=== PATIENT | male | born 1945 | race Caucasian/White ===

== ENCOUNTER 2020-04-12 09:40 | Outpatient (REF) | payer MEDICARE, BC, SELFPAY ==
[2020-04-12 13:00] LABS: MANUAL DIFF FLAG NO
[2020-04-12 13:07] LABS: Basophils Percent Auto 0.3 % (0-2); Eosinophils Absolute Auto 0.1 X10*3/uL (0.0-0.4); Eosinophils Percent Auto 0.7 % (0-4); Hematocrit 51.1 % (42-52); Hemoglobin 16.6 g/dl (14.0-18.0); Imm Gran Abs Auto 0.03 X10*3/uL (0.00-0.03); Imm Gran Pct Auto 0.3 % (0.0-0.4); Lymphocytes Absolute Auto 2.4 X10*3/uL (1.2-4.9); Lymphocytes Percent Auto 27.1 % (20-40); Mean Corpuscular HGB Conc 32.5 g/dl (31.0-36.0); Mean Corpuscular Hemoglobin 31.7 pg (27.0-33.0); Mean Corpuscular Volume 97.5 fL (80-98); Mean Platelet Volume 10.6 fL (9.4-12.4); Monocytes Absolute Auto 0.7 X10*3/uL (0.1-1.2); Monocytes Percent Auto 7.6 % (2-11); Neutrophils Absolute Auto 5.7 X10*3/uL (2.0-8.3); Platelet Count 231 X10*3/uL (160-400); Red Blood Count 5.24 X10*6/uL (4.60-5.80); Red Cell Distribution Width 12.6 % (11.0-16.0); White Blood Count 8.9 X10*3/uL (4.8-10.8)
[2020-04-12 13:22] LABS: Glucose Urine UA NEG (NEG); Leukocyte Esterase Urine NEG (NEG); Nitrite Urine NEG (NEG); PH 7.5 (5.0-8.0); Urine Blood NEG (NEG); Urine Ketones NEG (NEG); Urine Protein NEG (NEG-TRACE)
[2020-04-12 13:32] LABS: Color Urine YELLOW
[2020-04-12 13:33] LABS: Appearance Urine CLOUDY
[2020-04-12 13:46] LABS: Alanine Aminotransferase 18 U/L (0-40); Albumin Level 4.3 g/dL (3.5-5.0); Alkaline Phosphatase 67 U/L (39-117); Anion Gap 14 (12-20); Aspartate Amino Transferase 17 U/L (5-37); Bilirubin Total 0.6 mg/dL (0.0-1.0); Blood Urea Nitrogen 13 mg/dL (9-16); Calcium 8.7 mg/dL (8.4-10.2); Carbon Dioxide 25 mmol/L (22-29); Chloride 105 mmol/L (96-108); Cholesterol 164 mg/dL; Estimated Glomerular Filt Rate > 60; Glucose Fasting 109 mg/dL (60-99); HDL Cholesterol 37 mg/dL; LDL Cholesterol Calculated 95 mg/dl; Potassium 4.3 mmol/l (3.3-5.1); Sodium 140 mmol/L (135-145); Total Protein 6.9 g/dL (6.5-8.0); Triglycerides 164 mg/dL
[2020-04-12 13:56] LABS: TSH reflex Free T4 1.26 mIU/mL (0.32-4.0); Vitamin D 25-OH Total 43.3 ng/mL (>30)
[2020-04-12 13:59] LABS: Bacteria Urine 3+ /LPF; RBC Urine 0-2 /HPF (0); Urine Talc Crystals TRACE /LPF; WBC Urine 0 /HPF (0-4)
[2020-04-12 14:10] LABS: Folate 7.6 ng/mL (> or = 4.0); Vitamin B12 287 pg/mL (200-900)
[2020-04-12 14:21] LABS: Creatinine Urine 72.15 mg/dL; Microalbum/Creatinine Ratio Ur 45.7 ug/mg cr
== END 2020-04-12 09:41 | disposition home or self-care (01) ==
LOC: HO.LAB 09:40
PROVIDERS: Absent Provider Internal Medicine; PCP Internal Medicine; Referring Provider Internal Medicine; Visit Provider Internal Medicine
DX: E11.40 Type 2 diabetes mellitus with diabetic neuropathy, unspecified (principal); I10 Essential (primary) hypertension; E78.00 Pure hypercholesterolemia, unspecified; I25.10 Atherosclerotic heart disease of native coronary artery without angina pectoris; R26.81 Unsteadiness on feet; E55.9 Vitamin D deficiency, unspecified; E66.9 Obesity, unspecified
CPT/HCPCS: 36415; 80053; 80061; 81001; 82043; 82306; 82607; 82746; 84443; 85025; 99212

== ENCOUNTER 2020-12-22 10:06 | Outpatient (REF) | payer MEDICARE, BC, SELFPAY ==
[2020-12-22 10:49] LABS: MANUAL DIFF FLAG NO
[2020-12-22 11:00] LABS: Basophils Percent Auto 0.2 % (0-2); Eosinophils Absolute Auto 0.1 X10*3/uL (0.0-0.4); Hematocrit 51.1 % (42-52); Hemoglobin 16.4 g/dl (14.0-18.0); Imm Gran Abs Auto 0.02 X10*3/uL (0.00-0.03); Imm Gran Pct Auto 0.2 % (0.0-0.4); Lymphocytes Absolute Auto 2.5 X10*3/uL (1.2-4.9); Lymphocytes Percent Auto 31.2 % (20-40); Mean Corpuscular HGB Conc 32.1 g/dl (31.0-36.0); Mean Corpuscular Hemoglobin 31.5 pg (27.0-33.0); Mean Corpuscular Volume 98.3 fL (80-98); Mean Platelet Volume 10.5 fL (9.4-12.4); Monocytes Absolute Auto 0.8 X10*3/uL (0.1-1.2); Monocytes Percent Auto 9.5 % (2-11); Neutrophils Absolute Auto 4.7 X10*3/uL (2.0-8.3); Neutrophils Percent Auto 57.9 % (45-73); Platelet Count 243 X10*3/uL (160-400); Red Cell Distribution Width 12.3 % (11.0-16.0); White Blood Count 8.1 X10*3/uL (4.8-10.8)
[2020-12-22 11:42] LABS: Alanine Aminotransferase 16 U/L (0-40); Albumin Level 4.2 g/dL (3.5-5.0); Alkaline Phosphatase 83 U/L (39-117); Anion Gap 13 (12-20); Aspartate Amino Transferase 14 U/L (5-37); Bilirubin Total 0.6 mg/dL (0.0-1.0); Blood Urea Nitrogen 12 mg/dL (9-16); Calcium 9.9 mg/dL (8.4-10.2); Carbon Dioxide 27 mmol/L (22-29); Chloride 105 mmol/L (96-108); Cholesterol 188 mg/dL; Estimated Glomerular Filt Rate > 60; Glucose Fasting 164 mg/dL (60-99); HDL Cholesterol 39 mg/dL; LDL Cholesterol Calculated 110 mg/dl; Potassium 4.7 mmol/L (3.3-5.1); Sodium 140 mmol/L (135-145); Total Protein 6.9 g/dL (6.5-8.0); Triglycerides 197 mg/dL
[2020-12-22 11:46] LABS: TSH reflex Free T4 2.18 uIU/mL (0.32-4.0); Vitamin D 25-OH Total 43.1 ng/mL (>30)
[2020-12-22 11:52] LABS: Glucose Urine UA 100 MG/DL (NEG); Leukocyte Esterase Urine NEG (NEG); Nitrite Urine NEG (NEG); Specific Gravity - Urine 1.025 (1.005-1.025); Urine Blood NEG (NEG); Urine Ketones NEG (NEG); Urine Protein NEG (NEG-TRACE)
[2020-12-22 11:59] LABS: Creatinine Urine 123.42 mg/dL; Microalbum/Creatinine Ratio Ur 69.6 ug/mg cr
[2020-12-22 11:59] LABS: Folate 8.8 ng/mL (> or = 4.0); Vitamin B12 208 pg/mL (200-900)
[2020-12-22 12:02] LABS: Appearance Urine CLEAR; Color Urine YELLOW
== END 2020-12-22 10:07 | disposition home or self-care (01) ==
LOC: HO.LAB 10:06
PROVIDERS: PCP Internal Medicine; Visit Provider Internal Medicine
DX: I25.10 Atherosclerotic heart disease of native coronary artery without angina pectoris (principal); I10 Essential (primary) hypertension; E11.40 Type 2 diabetes mellitus with diabetic neuropathy, unspecified; E78.00 Pure hypercholesterolemia, unspecified; E66.9 Obesity, unspecified; E55.9 Vitamin D deficiency, unspecified
CPT/HCPCS: 36415; 80053; 80061; 81003; 82043; 82306; 82607; 82746; 84443; 85025

== ENCOUNTER 2021-08-19 12:01 | Inpatient (IN) | payer MEDICARE, BC, SELFPAY ==
--- NOTE | ~2021-08-19 | US_ITS ---
EXAMINATION: SOB SWELLING AND PAIN LEFT LEG. CLINICAL INFORMATION: SOB. COMPARISON: None TECHNIQUE: Chest 2 views. Routine grayscale, color and Doppler imaging of left leg was performed. FINDINGS: CHEST. The lungs are well-expanded and clear of acute pneumonic process. The heart size and perivascular is normal. There is mild spondylosis lower dorsal spine. No lytic process. ULTRASOUND LEFT LOWER LEG: There is normal compression, color flow and Doppler imaging of left common femoral, superficial femoral, popliteal, anterior, posterior tibial and greater saphenous vein. The profunda vein and the peroneal veins are patent as well. The soft tissues are normal. US/US venous duplex LE LT IMPRESSION: Unremarkable left lower extremity venous study. There is no evidence of DVT.
[2021-08-19 12:12] VITALS: BP 137/51; BP 148/88; PULSE 100; PULSE 108; RESP 20; TEMP 36.9; O2SAT 94; O2SAT 95; BMI 31.6
--- NOTE | 2021-08-19 12:21 | ECG_ITS ---
Test Reason : Skin abscess Blood Pressure : / mmHG Vent. Rate : 081 BPM Atrial Rate : 081 BPM P-R Int : 162 ms QRS Dur : 070 ms QT Int : 350 ms P-R-T Axes : 069 032 049 degrees QTc Int : 406 ms Normal sinus rhythm Nonspecific ST abnormality Abnormal ECG When compared with ECG of 27-JUL-2017 03:52, Premature ventricular complexes are no longer Present QT has shortened Referred By: Maricarmen Estevez Electronically Signed By:AUGUST HUBER MD
--- NOTE | 2021-08-19 12:23 | ED.SKABFB ---
HPI - Skin/Abscess/Foreign Bdy General Chief complaint: Skin/Abscess/Foreign Body Stated complaint: MACIEJ PEDAL EDEMA/L FOOT WOUND PAIN PER EMS Time Seen by Provider: 08/19/21 12:08 Source: patient and EMS Mode of arrival: EMS Limitations: no limitations History of Present Illness HPI narrative: 76-year-old male with a history of pza-leeybno-[id number] diabetes, COPD, sleep apnea, hypertension, hyperlipidemia here with reports of left lower leg swelling, redness and pain for the last week. Patient tells me he initially noticed that there was a blister on the left leg. During the week of the blister ruptured and since then he has had increasing pain, redness and swelling of the leg. He denies any fevers or chills. He does have COPD and has chronic shortness of breath but feels like today it is at his baseline. He denies any increased cough, chest pain. Related Data Home Medications Medication Instructions Recorded Confirmed budesonide 180 mcg/actuation 1 inh INHALATION BID 04/26/20 08/19/21 breath activated powder inhaler fluticasone propionate 220 1 puff INHALATION BID 04/26/20 08/19/21 mcg/actuation HFA aerosol inhaler (Flovent HFA) Previous Rx's Medication Instructions Recorded aspirin 81 mg tablet,delayed 81 mg PO DAILY #30 tab 04/12/20 release albuterol sulfate 90 mcg/actuation 2 puff INHALATION Q6H PRN #8.5 g 07/27/20 aerosol inhaler cholecalciferol (vitamin D3) 50 50 mcg PO DAILY 90 Days #90 cap 03/15/21 mcg (2,000 unit) capsule ipratropium 0.5 mg-albuterol 3 mg 3 ml INHALATION Q6H PRN 30 Days 03/15/21 (2.5 mg base)/3 mL nebulization #360 ml soln pravastatin 40 mg tablet 40 mg PO DAILY #90 tab 03/15/21 glipizide 10 mg tablet 10 mg PO BID 90 Days #180 tab 07/17/21 lisinopril 20 mg tablet 20 mg PO DAILY 90 Days #90 tab 07/17/21 metformin 500 mg tablet 500 mg PO BID 90 Days #180 tab 07/17/21 Allergies Allergy/AdvReac Type Severity Reaction Status Date / Time Fish Containing Products Allergy Severe ANAPHYLAXIS Verified 07/17/21 10:48 shellfish derived Allergy Severe ANAPHYLAXIS Verified 07/17/21 10:48 Review of Systems Review of Systems: Yes all other systems are reviewed and are negative Constitutional: Constitutional: Reports no additional constitutional complaints, Denies body ache(s), Denies chills, Denies fever(s), Denies headache(s) and Denies weakness Eyes: Eyes: Reports no additional eye complaints and Denies change in vision ENT: Reports system reviewed and no additional complaints, except as documented, Denies dizziness, Denies headache(s), Denies nasal congestion, Denies nasal discharge and Denies neck pain Cardiovascular: Cardiovascular: Reports no additional cardiovascular complaints, Denies chest pain, Reports leg edema and Denies dyspnea Respiratory: Respiratory: Reports no additional respiratory complaints, Denies cough and Denies dyspnea Gastrointestinal: Gastrointestinal: Reports no additional gastrointestinal complaints, Denies abdominal pain, Denies diarrhea, Denies nausea and Denies vomiting Genitourinary: Genitourinary: Denies urinary incontinence Musculoskeletal: Musculoskeletal: Reports no additional musculoskeletal complaints, Denies back pain, Denies arthralgias, Denies joint swelling, Denies neck pain, Denies numbness and Denies tingling Integumentary/Breasts: Skin/Breast: Reports system reviewed and no additional complaints, except as docu and Reports rash Neurologic: Reports system reviewed and no additional complaints, except as documented, Denies Abnormal speech present, Denies dizziness, Denies headache(s), Denies numbness, Denies tingling and Denies weakness PMFSH Past Medical History Attestation statement: The following information was validated with the patient. Source: old records reviewed and nursing notes reviewed Medical History Benign essential hypertension CAD (coronary artery disease) COPD (chronic obstructive pulmonary disease) COPD (chronic obstructive pulmonary disease) Coronary artery disease Depression DM2 (diabetes mellitus, type 2) Erectile disorder due to medical condition in male HLD (hyperlipidemia) HTN (hypertension) Neuropathy Obesity (BMI 30-39.9) Obesity (BMI 30.0-34.9) FADY (obstructive sleep apnea) Primary osteoarthritis of both knees Psoriasis Pulmonary hypertension Pure hypercholesterolemia Type 2 diabetes mellitus with diabetic neuropathy, unspecified Vitamin D deficiency Surgical History No pertinent past surgical history Family History Family History Father Medical history unknown Mother Cancer Social History Social History Housing: Apartment Alcohol intake: current Alcohol intake frequency: does not drink Patient Tobacco Use Status: Current someday Tobacco user Cigarettes Per Day: 3 Years Smoked: 59 years Smoked in Last 30 Days: Yes Second Hand Smoke Exposure: Yes Use of substances other than those prescribed or required for medical reasons: No Advance Directives: No Advance Directives Information Provided: No service: Yes Current occupational status: retired Physical Exam Vital Signs: Vital Signs: Last Vital Signs Temp 98.4 F 08/19/21 12:12 Pulse 100 08/19/21 12:12 Resp 20 08/19/21 12:12 BP 137/51 L 08/19/21 12:12 Pulse Ox 95 08/19/21 12:12 BMI result Body Mass Index 31.6 Const: General: cooperative, healthy appearing, comfortable and no acute distress Orientation/consciousness: patient oriented x3 Limitations: no limitations HENMT: Head: Yes normal to inspection Ears: hearing grossly normal bilaterally General nose exam: Normal external nose present Face and sinus: Yes normal facial exam Mouth: Normal oral and palatal mucosa present Throat: Yes posterior oropharynx normal Eyes: General: appearance normal, both eyes and all related structures Pupils: Equal, round and reactive pupils present Neck: Neck: Yes normal visual inspection Chest: Chest palpation & inspection: normal inspection of the chest Resp: Effort & Inspection: normal respiratory effort Auscultation: clear to auscultation bilaterally Cardio: Rate: regular rate Rhythm: regular rhythm Peripheral pulses: Peripheral pulses 2+ throughout GI: Inspection: Yes normal to inspection Palpation (GI): Soft to palpation and nontender Auscultation: normal bowel sounds Back/Spine/Pelvis: Thoracic/Lumbar Spine: thoracic and lumbar spine normal to inspection Skin: General skin exam: no rashes or lesions noted Neuro: General: patient oriented x3, no focal motor deficits and normal sensation to monofilament Cranial nerves: Yes Equal, round and reactive pupils present Cognition (Neuro): normal cognition Speech: No Abnormal speech present Gait exam (Neuro): Normal gait present Motor exam (neuro): 5/5 motor strength present throughout Extrem: Other: The RLE has slight swelling, pigmentation of the skin c/w with PVD with no tenderness or warmth The LLE has circumferential swelling, redness, tenderness with +foul odor and draining wound over the anterior distal leg. +distal pulses. Sensation normal. Course Course Course Narrative: 76 yo male here with 1 week of LLE swelling, redness, warmth with open wound. on exam he does have some slight swelling noted to the right lower leg that is nonpitting. Has no history of congestive heart failure. He has no increased shortness of breath from baseline, no increased cough from baseline, no fevers, no chest pain. He has no history of DVTs or PEs. He is not anticoagulated. Will check labs including blood cultures and lactic acid, EKG, CXR, Covid screen, venous US LLE. At this time infection is suspected. Antibiotics ordered. 1340- Ultrasound is negative for DVT. Workup for CHF including BNP and chest x-ray are negative. Plan for admission for IV antibiotics for cellulitis. Discussed case with Dr. Ballard who accepted patient. MDM - Skin/Abscess/Foreign Bdy Medical Records Attestation: I reviewed the patient's medical records. Lab Data Attestation: I reviewed the patient's lab results. Result diagrams: 08/19/21 12:25 08/19/21 12:25 Labs: Lab Results 08/19/21 08/19/21 08/19/21 Range/Units 12:25 12:25 12:25 WBC 11.9 H (4.8-10.8) X10*3/uL RBC 5.17 (4.60-5.80) X10*6/uL Hgb 16.5 (14.0-18.0) g/dl Hct 50.1 (42.0-52.0) % MCV 96.9 (80.0-98.0) fL MCH 31.9 (27.0-33.0) pg MCHC 32.9 (31.0-36.0) g/dl RDW 12.3 (11.0-16.0) % Plt Count 312 (160-400) X10*3/uL MPV 9.7 (9.4-12.4) fL Immature Gran % (Auto) 0.7 H (0.0-0.4) % Neut % (Auto) 73.3 H (45-73) % Lymph % (Auto) 17.1 L (20-40) % [place] % (Auto) 8.3 (2-11) % Eos % (Auto) 0.3 (0-4) % Baso % (Auto) 0.3 (0-2) % Lymph # (Auto) 2.0 (1.2-4.9) X10*3/uL [place] # (Auto) 1.0 (0.1-1.2) X10*3/uL Eos # (Auto) 0.0 (0.0-0.4) X10*3/uL Baso # (Auto) 0.0 (0.0-0.2) X10*3/uL Abs Immat Gran (auto) 0.08 H (0.00-0.03) X10*3/uL Absolute Neuts (auto) 8.7 H (2.0-8.3) x10*3/uL Absolute Nucleated RBC 0.000 (0.0-0.012) X10*3/uL Nucleated RBC % (auto) 0.0 (0.0-0.2) /100WBC Sodium 136 (135-145) mmol/L Potassium 4.9 (3.3-5.1) mmol/L Chloride 99 (96-108) mmol/L Carbon Dioxide 27 (22-29) mmol/L Anion Gap 15 (12-20) BUN 14 (9-16) mg/dL Creatinine 0.95 (0.5-1.4) mg/dL Estim Creat Clear Calc 91.4 Estimated GFR > 60 Random Glucose 119 H (60-115) mg/dL Lactic Acid 2.2 H* (0.5-2.0) mmol/L Calcium 9.7 (8.4-10.2) mg/dL Magnesium 1.9 (1.6-2.6) mg/dL Total Bilirubin 0.7 (0.0-1.0) mg/dL Direct Bilirubin 0.4 (0.0-0.5) mg/dL AST 14 (5-37) U/L ALT 16 (0-40) U/L Alkaline Phosphatase 94 (39-117) U/L Troponin I High Sens (<3.5-35.0) ng/L B-Natriuretic Peptide (<100) pg/mL Total Protein 7.0 (6.5-8.0) g/dL Albumin 4.0 (3.5-5.0) g/dL COVID-19 ([facility]) (Negative) COVID-19 Clin Com 08/19/21 08/19/21 Range/Units 12:25 12:32 WBC (4.8-10.8) X10*3/uL RBC (4.60-5.80) X10*6/uL Hgb (14.0-18.0) g/dl Hct (42.0-52.0) % MCV (80.0-98.0) fL MCH (27.0-33.0) pg MCHC (31.0-36.0) g/dl RDW (11.0-16.0) % Plt Count (160-400) X10*3/uL MPV (9.4-12.4) fL Immature Gran % (Auto) (0.0-0.4) % Neut % (Auto) (45-73) % Lymph % (Auto) (20-40) % [place] % (Auto) (2-11) % Eos % (Auto) (0-4) % Baso % (Auto) (0-2) % Lymph # (Auto) (1.2-4.9) X10*3/uL [place] # (Auto) (0.1-1.2) X10*3/uL Eos # (Auto) (0.0-0.4) X10*3/uL Baso # (Auto) (0.0-0.2) X10*3/uL Abs Immat Gran (auto) (0.00-0.03) X10*3/uL Absolute Neuts (auto) (2.0-8.3) x10*3/uL Absolute Nucleated RBC (0.0-0.012) X10*3/uL Nucleated RBC % (auto) (0.0-0.2) /100WBC Sodium (135-145) mmol/L Potassium (3.3-5.1) mmol/L Chloride (96-108) mmol/L Carbon Dioxide (22-29) mmol/L Anion Gap (12-20) BUN (9-16) mg/dL Creatinine (0.5-1.4) mg/dL Estim Creat Clear Calc Estimated GFR Random Glucose (60-115) mg/dL Lactic Acid (0.5-2.0) mmol/L Calcium (8.4-10.2) mg/dL Magnesium (1.6-2.6) mg/dL Total Bilirubin (0.0-1.0) mg/dL Direct Bilirubin (0.0-0.5) mg/dL AST (5-37) U/L ALT (0-40) U/L Alkaline Phosphatase (39-117) U/L Troponin I High Sens 9.1 (<3.5-35.0) ng/L B-Natriuretic Peptide 77 (<100) pg/mL Total Protein (6.5-8.0) g/dL Albumin (3.5-5.0) g/dL COVID-19 ([facility]) Negative (Negative) COVID-19 Clin Com See Note Imaging Data Venous US: Attestation: I personally reviewed and interpreted this imaging study as follows: Radiologist's impression: FINDINGS: CHEST. The lungs are well-expanded and clear of acute pneumonic process. The heart size and perivascular is normal. There is mild spondylosis lower dorsal spine. No lytic process. ULTRASOUND LEFT LOWER LEG: There is normal compression, color flow and Doppler imaging of left common femoral, superficial femoral, popliteal, anterior, posterior tibial and greater saphenous vein. The profunda vein and the peroneal veins are patent as well. The soft tissues are normal. US/US venous duplex LE LT IMPRESSION: Unremarkable left lower extremity venous study. There is no evidence of DVT.? Chest x-ray: Attestation: I personally reviewed and interpreted this imaging study as follows: Radiologist's impression: FINDINGS: CHEST. The lungs are well-expanded and clear of acute pneumonic process. The heart size and perivascular is normal. There is mild spondylosis lower dorsal spine. No lytic process. ECG Data Attestation: I personally reviewed and interpreted this ECG as follows: ECG interpretation date: 08/19/21 ECG interpretation time: 13:03 Interpretation: Normal sinus rhythm with a rate 81, normal RI, normal QRS, normal QT Discharge Plan Discharge Clinical Impression: Cellulitis Patient Disposition: Admitted As Inpatient
[2021-08-19 12:29] LABS: MANUAL DIFF FLAG NO
[2021-08-19 12:35] LABS: Basophils Percent Auto 0.3 % (0-2); Eosinophils Percent Auto 0.3 % (0-4); Hematocrit 50.1 % (42.0-52.0); Hemoglobin 16.5 g/dl (14.0-18.0); Imm Gran Abs Auto 0.08 X10*3/uL (0.00-0.03); Imm Gran Pct Auto 0.7 % (0.0-0.4); Lymphocytes Percent Auto 17.1 % (20-40); Mean Corpuscular HGB Conc 32.9 g/dl (31.0-36.0); Mean Corpuscular Hemoglobin 31.9 pg (27.0-33.0); Mean Corpuscular Volume 96.9 fL (80.0-98.0); Mean Platelet Volume 9.7 fL (9.4-12.4); Monocytes Percent Auto 8.3 % (2-11); Neutrophils Absolute Auto 8.7 x10*3/uL (2.0-8.3); Neutrophils Percent Auto 73.3 % (45-73); Platelet Count 312 X10*3/uL (160-400); Red Blood Count 5.17 X10*6/uL (4.60-5.80); Red Cell Distribution Width 12.3 % (11.0-16.0); White Blood Count 11.9 X10*3/uL (4.8-10.8)
[2021-08-19] MEDS: Piperacillin Sodium/Tazobactam 3.375 GM in 0.9 % Sodium Chloride 50 ML IV ×2 (12:39→20:56)
[2021-08-19 12:54] LABS: COVID-19 Test Negative (Negative); IDNOW Serial# 16C4AD1C
[2021-08-19 12:54] LABS: Alanine Aminotransferase 16 U/L (0-40); Alkaline Phosphatase 94 U/L (39-117); Anion Gap 15 (12-20); Aspartate Amino Transferase 14 U/L (5-37); Bilirubin Direct 0.4 mg/dL (0.0-0.5); Bilirubin Total 0.7 mg/dL (0.0-1.0); Blood Urea Nitrogen 14 mg/dL (9-16); Calcium 9.7 mg/dL (8.4-10.2); Carbon Dioxide 27 mmol/L (22-29); Chloride 99 mmol/L (96-108); Creatinine Clr Calc Pharmacy 91.4; Estimated Glomerular Filt Rate > 60; Glucose Random 119 mg/dL (60-115); Magnesium 1.9 mg/dL (1.6-2.6); Potassium 4.9 mmol/L (3.3-5.1); Sodium 136 mmol/L (135-145)
[2021-08-19 13:01] LABS: B Type Natriuretic Peptide 77 pg/mL (<100); Troponin-I High Sensitivity 9.1 ng/L (<3.5-35.0)
[2021-08-19 13:18] LABS: Lactic Acid 2.2 mmol/L (0.5-2.0)
--- NOTE | 2021-08-19 13:46 | PHA.MEDREC ---
Pharmacy Consult ? Medication Reconciliation Pharmacy has completed the medication reconciliation.
[2021-08-19 14:27] LABS: Reflex Lactate? Lactic Acid Added
--- NOTE | 2021-08-19 14:35 | PM.IMHP ---
History of Present Illness Date of Service: 08/19/21 Chief Complaint: leg pain 76-year-old male with a history of tex-bjkebkz-[id number] diabetes, COPD, sleep apnea, hypertension, hyperlipidemia here with reports of left lower leg swelling, redness and pain for the last week.? Patient tells me he initially noticed that there was a blister on the left leg.? During the week of the blister ruptured and since then he has had increasing pain, redness and swelling of the leg.? He denies any fevers or chills.? He does have COPD and has chronic shortness of breath but feels like today it is at his baseline.? He denies any increased cough, chest pain. Venous duplex left lower extremity negative Review of Systems Review of Systems: Denies chest pain Denies shortness of breath Denies nausea vomiting diarrhea PMFSH Medical History Benign essential hypertension CAD (coronary artery disease) COPD (chronic obstructive pulmonary disease) COPD (chronic obstructive pulmonary disease) Coronary artery disease Depression DM2 (diabetes mellitus, type 2) Erectile disorder due to medical condition in male HLD (hyperlipidemia) HTN (hypertension) Neuropathy Obesity (BMI 30-39.9) Obesity (BMI 30.0-34.9) FADY (obstructive sleep apnea) Primary osteoarthritis of both knees Psoriasis Pulmonary hypertension Pure hypercholesterolemia Type 2 diabetes mellitus with diabetic neuropathy, unspecified Vitamin D deficiency Family History Father Medical history unknown Mother Cancer Surgical History No pertinent past surgical history Social History Housing: Apartment Alcohol intake: current Alcohol intake frequency: does not drink Patient Tobacco Use Status: Current someday Tobacco user Cigarettes Per Day: 3 Years Smoked: 59 years Smoked in Last 30 Days: Yes Second Hand Smoke Exposure: Yes Use of substances other than those prescribed or required for medical reasons: No Advance Directives: No Advance Directives Information Provided: No service: Yes Current occupational status: retired Meds Allergies Allergy/AdvReac Type Severity Reaction Status Date / Time Fish Containing Products Allergy Severe ANAPHYLAXIS Verified 07/17/21 10:48 shellfish derived Allergy Severe ANAPHYLAXIS Verified 07/17/21 10:48 Active Medications: Current Medications Albuterol Sulfate (Albuterol Sulfate 90 Mcg 8 Gm Inhaler) 2 puff INHALE RQ6H PRN PRN Reason: for wheezing Albuterol/Ipratropium (Albuterol/Iprat 2.5/0.5mg 3 Ml Ampul.Neb) 3 ml INHALE RQ6H PRN PRN Reason: wheezing Aspirin (Aspirin Enteric Coated 81 Mg Tablet.Dr) 81 mg PO DAILY [facility] Budesonide (Budesonide 180 Mcg Aer.Pow.Ba) 1 puff INHALE BID [facility] Dextrose (Dextrose 50 % 25 Gm/50 Ml Vial) 25 gm IVPUSH Q15M PRN; Protocol PRN Reason: per Hypoglycemia Standing Ord. Enoxaparin Sodium (Enoxaparin Sodium 40 Mg/0.4 Ml Syringe) 40 mg SUBCUT Q24H [facility] Fluticasone Propionate (Fluticasone Propionate 250 Mcg Blst.W.Dev) 1 puff INHALE RBID [facility] Furosemide (Furosemide 20 Mg/2 Ml Vial) 20 mg IVPUSH BID@0830,1630 [facility]; Protocol Glipizide (Glipizide 10 Mg Tablet) 10 mg PO BID [facility] Glucose (Glucose Gel 15 Gm Gel..Gram.) 15 gm PO Q15M PRN; Protocol PRN Reason: per Hypoglycemia Standing Ord. Vancomycin HCl 1,000 mg/Vancomycin HCl 750 mg/ Sodium Chloride 535 mls @ 267.5 mls/hr IV ONCE ONE Stop: 08/19/21 15:36 Piperacillin Sod/Tazobactam (Sod 3.375 gm/ Sodium Chloride) 50 mls @ 100 mls/hr IV Q6H [facility] Insulin Human Lispro (Insulin Lispro 100 Unit/Ml 3 Ml Vial) 0 unit SUBCUT QIDACHS [facility]; Protocol Lisinopril (Lisinopril 20 Mg Tablet) 20 mg PO DAILY [facility]; Protocol Metformin HCl (Metformin Hcl 500 Mg Tablet) 500 mg PO BID [facility] Pharmacy Consult (Consult Rx Perform Med Rec) 1 each MISCELLANE ONCE PRN PRN Reason: Consult order Pharmacy Consult (Consult Rx Vancomycin Dosing) 1 each MISCELLANE DAILY PRN PRN Reason: Consult order Pharmacy Consult (Consult Rx Vancomycin Dosing) 1 each MISCELLANE DAILY PRN PRN Reason: Consult order Pravastatin Sodium (Pravastatin Sodium 40 Mg Tablet) 40 mg PO DAILY [facility] Sodium Chloride (0.9 % Sodium Chloride Flush 3 Ml Syringe) 3 ml IVFLUSH QSHIFT [facility] Vitamin D (Cholecalciferol (Vitamin D3) 25 Mcg Tablet) 50 mcg PO DAILY [facility] Home Medications Medication Instructions Recorded Confirmed Last Taken Type budesonide 180 mcg/actuation 1 inh INHALATION BID 04/26/20 08/19/21 Unknown History breath activated powder inhaler fluticasone propionate 220 1 puff INHALATION BID 04/26/20 08/19/21 Unknown History mcg/actuation HFA aerosol inhaler (Flovent HFA) Physical Exam Vital Signs and Narrative: Vital Signs: Last Vital Signs Temp 98.4 F 08/19/21 12:12 Pulse 100 08/19/21 12:12 Resp 20 08/19/21 12:12 BP 137/51 L 08/19/21 12:12 Pulse Ox 95 08/19/21 12:12 BMI result Body Mass Index 31.6 Const: Other: Awake alert oriented x3 no acute distress Resp: Other: Clear to auscultation bilaterally no rales rhonchi or wheezes Cardio: Other: No S4; positive S1-S2; no S3 murmurs rubs or gallops GI: Other: Soft nontender nondistended with normoactive bowel sounds Extrem: Other: Weeping edema bilaterally Results Labs CBC and Chem 7: 08/19/21 12:25 08/19/21 12:25 Labs: Laboratory Results - last 24 hr 08/19/21 08/19/21 08/19/21 12:25 12:25 12:25 MCV 96.9 MCH 31.9 MCHC 32.9 RDW 12.3 Plt Count 312 MPV 9.7 Immature Gran % (Auto) 0.7 H Neut % (Auto) 73.3 H Lymph % (Auto) 17.1 L [place] % (Auto) 8.3 Eos % (Auto) 0.3 Baso % (Auto) 0.3 Lymph # (Auto) 2.0 [place] # (Auto) 1.0 Eos # (Auto) 0.0 Baso # (Auto) 0.0 Abs Immat Gran (auto) 0.08 H Absolute Neuts (auto) 8.7 H Absolute Nucleated RBC 0.000 Nucleated RBC % (auto) 0.0 Anion Gap 15 Estim Creat Clear Calc 91.4 Estimated GFR > 60 Random Glucose 119 H Lactic Acid 2.2 H* Calcium 9.7 Magnesium 1.9 Total Bilirubin 0.7 Direct Bilirubin 0.4 AST 14 ALT 16 Alkaline Phosphatase 94 B-Natriuretic Peptide Total Protein 7.0 Albumin 4.0 COVID-19 ([facility]) COVID-19 Clin Com 08/19/21 08/19/21 12:25 12:32 MCV MCH MCHC RDW Plt Count MPV Immature Gran % (Auto) Neut % (Auto) Lymph % (Auto) [place] % (Auto) Eos % (Auto) Baso % (Auto) Lymph # (Auto) [place] # (Auto) Eos # (Auto) Baso # (Auto) Abs Immat Gran (auto) Absolute Neuts (auto) Absolute Nucleated RBC Nucleated RBC % (auto) Anion Gap Estim Creat Clear Calc Estimated GFR Random Glucose Lactic Acid Calcium Magnesium Total Bilirubin Direct Bilirubin AST ALT Alkaline Phosphatase B-Natriuretic Peptide 77 Total Protein Albumin COVID-19 ([facility]) Negative COVID-19 Clin Com See Note Imaging Radiologist's Impressions: Impressions Chest X-Ray 08/19/21 12:47 IMPRESSION: Unremarkable left lower extremity venous study. There is no evidence of DVT. Venous Duplex 08/19/21 13:09 IMPRESSION: Unremarkable left lower extremity venous study. There is no evidence of DVT. Assessment and Plan (1) Cellulitis: Status: Acute (2) Coronary artery disease: Qualifiers: Coronary Disease-Associated Artery/Lesion type: [place] artery [place] vs. transplanted heart: [place] heart Associated angina: without angina Qualified Code(s): I25.10 - Atherosclerotic heart disease of [place] coronary artery without angina pectoris Status: Acute (3) Benign essential hypertension: Status: Acute (4) Type 2 diabetes mellitus with diabetic neuropathy, unspecified: Qualifiers: Diabetes mellitus buttermaker continuous churn insulin use: without buttermaker continuous churn use Qualified Code(s): E11.40 - Type 2 diabetes mellitus with diabetic neuropathy, unspecified Status: Acute (5) COPD (chronic obstructive pulmonary disease): Qualifiers: COPD type: unspecified COPD Qualified Code(s): J44.9 - Chronic obstructive pulmonary disease, unspecified Status: Acute Plan 76-year-old male with a history of coronary artery disease, hypertension and type 2 diabetes not requiring insulin presents with approximately 1 week of left lower extremity redness and swelling. He states this started as a blister began to weep and then his legs became more read as days went by along with being more painful. He states denies fever and chills. States he ?furniture walks at home?. Minimal ambulation electric wheelchair. At this time he will be admitted for IV antibiotics 1. LLE Cellulitis -IV Vanco/Zosyn -IV lasix x 24hrs. -follow renals/divalents 2. DMII -continue outpatient therapies -Sliding scale insulin to cover adjust as indicted 3.HTN -acceptable control on outpatient therapies -continue same...adjust as indicated 4.Hyperlipidemia -continue statin Full Code Lovenox Requires inpatient hospitalization secondary to need for IV antibiotics and IV diuresis Quality Stroke Does the patient have a stroke diagnosis?: No VTE Prior VTE?: No VTE Risk Level:: Medical - moderate - high VTE Device Contraindication: Patient Refused VTE Drug Contraindication: N/A - Med Ordered
[2021-08-19 14:43] VITALS: BP 123/38; PULSE 77; RESP 16; O2SAT 98
[2021-08-19] MEDS: 0.9 % Sodium Chloride Flush 3 ML SYRINGE IVFLUSH (14:59)
[2021-08-19] MEDS: vancomycin HCL 1,000 MG, vancomycin HCL 750 MG in 0.9 % Sodium Chloride 500 ML 267.5 MG IV (14:59)
[2021-08-19] MEDS: Enoxaparin Sodium 40 MG/0.4 ML SYRINGE SUBCUT (14:59)
[2021-08-19 15:10] LABS: ~Lactic Acid-LAB USE ONLY 2.3 mmol/L (0.5-2.0)
[2021-08-19 15:25] VITALS: BP 105/80; PULSE 76; RESP 16; TEMP 36.6; O2SAT 97
[2021-08-19 16:50] LABS: Reflex Lactate? 2 Y
[2021-08-19 17:29] LABS: Glucose, Whole Blood 137 mg/dL (60-115)
--- NOTE | 2021-08-19 17:32 | PC.NURSE ---
patient refusing repeat lctic acid draw at this time
[2021-08-19 17:57] VITALS: BP 112/43; PULSE 70; RESP 18; TEMP 37; O2SAT 98
[2021-08-19] MEDS: Furosemide 20 MG/2 ML VIAL IVPUSH (17:58)
[2021-08-19 17:59] LABS: ~Lactic Acid-LAB USE ONLY 2.1 mmol/L (0.5-2.0)
[2021-08-19 19:54] VITALS: BP 110/46; PULSE 76; RESP 16; TEMP 36.8; O2SAT 98
--- NOTE | 2021-08-19 20:06 | PC.NURSE ---
vanco still infusing, pt not keeping arm straight despite consistent reminders
[2021-08-19 20:49] LABS: Glucose, Whole Blood 103 mg/dL (60-115)
[2021-08-19] MEDS: metFORMIN HCl 500 MG TABLET PO (20:56)
[2021-08-19] MEDS: glipiZIDE 10 MG TABLET PO (21:13)
[2021-08-19] MEDS: Budesonide 180 MCG AER.POW.BA 1 PUFF INHALE (21:14)
[2021-08-20] MEDS: Piperacillin Sodium/Tazobactam 3.375 GM in 0.9 % Sodium Chloride 50 ML IV ×4 (00:40→19:09)
[2021-08-20] MEDS: 0.9 % Sodium Chloride Flush 3 ML SYRINGE IVFLUSH ×3 (00:40→15:40)
[2021-08-20 01:20] VITALS: BP 133/47; PULSE 75; RESP 14; TEMP 36.6; O2SAT 97
[2021-08-20 07:13] LABS: MANUAL DIFF FLAG NO
[2021-08-20 07:14] LABS: Basophils Percent Auto 0.3 % (0-2); Eosinophils Absolute Auto 0.1 X10*3/uL (0.0-0.4); Eosinophils Percent Auto 0.9 % (0-4); Hematocrit 44.1 % (42.0-52.0); Hemoglobin 14.3 g/dl (14.0-18.0); Imm Gran Abs Auto 0.06 X10*3/uL (0.00-0.03); Imm Gran Pct Auto 0.7 % (0.0-0.4); Lymphocytes Absolute Auto 1.9 X10*3/uL (1.2-4.9); Lymphocytes Percent Auto 21.3 % (20-40); Mean Corpuscular HGB Conc 32.4 g/dl (31.0-36.0); Mean Corpuscular Hemoglobin 32.1 pg (27.0-33.0); Mean Corpuscular Volume 98.9 fL (80.0-98.0); Mean Platelet Volume 9.8 fL (9.4-12.4); Monocytes Absolute Auto 0.8 X10*3/uL (0.1-1.2); Monocytes Percent Auto 9.5 % (2-11); Neutrophils Absolute Auto 5.9 x10*3/uL (2.0-8.3); Neutrophils Percent Auto 67.3 % (45-73); Platelet Count 230 X10*3/uL (160-400); Red Blood Count 4.46 X10*6/uL (4.60-5.80); Red Cell Distribution Width 12.3 % (11.0-16.0); White Blood Count 8.8 X10*3/uL (4.8-10.8)
[2021-08-20 07:22] LABS: Glucose, Whole Blood 107 mg/dL (60-115)
[2021-08-20 07:35] LABS: Alanine Aminotransferase 12 U/L (0-40); Albumin Level 3.2 g/dL (3.5-5.0); Alkaline Phosphatase 71 U/L (39-117); Anion Gap 14 (12-20); Aspartate Amino Transferase 14 U/L (5-37); Bilirubin Total 0.7 mg/dL (0.0-1.0); Blood Urea Nitrogen 16 mg/dL (9-16); Calcium 8.9 mg/dL (8.4-10.2); Carbon Dioxide 26 mmol/L (22-29); Chloride 101 mmol/L (96-108); Creatinine Clr Calc Pharmacy 98.6; Estimated Glomerular Filt Rate > 60; Glucose Fasting 114 mg/dL (60-99); Potassium 4.5 mmol/L (3.3-5.1); Sodium 136 mmol/L (135-145); Total Protein 5.7 g/dL (6.5-8.0)
[2021-08-20] MEDS: Pravastatin Sodium 40 MG TABLET PO (09:09)
[2021-08-20] MEDS: Furosemide 20 MG/2 ML VIAL IVPUSH ×2 (09:09→15:40)
[2021-08-20] MEDS: Aspirin Enteric Coated 81 MG TABLET.DR PO (09:09)
[2021-08-20] MEDS: metFORMIN HCl 500 MG TABLET PO ×2 (09:09→20:44)
[2021-08-20] MEDS: lisinopriL 20 MG TABLET PO (09:09)
[2021-08-20] MEDS: Cholecalciferol (Vitamin D3) 25 MCG TABLET 50 MCG PO (09:09)
[2021-08-20] MEDS: glipiZIDE 10 MG TABLET PO ×2 (09:10→20:44)
[2021-08-20 11:50] VITALS: BP 120/54; PULSE 75; RESP 16; TEMP 36.3; O2SAT 96
--- NOTE | 2021-08-20 12:12 | P.PNIM_ITS ---
Subjective Subjective Date of Service: 08/20/21 Interval History: No acute issues overnight. Review of Systems Denies chest pain Denies shortness of breath Denies nausea vomiting diarrhea Physical Exam Vital Signs: Vital Signs: Last Vital Signs Temp 97.3 F 08/20/21 11:50 Pulse 75 08/20/21 11:50 Resp 16 08/20/21 11:50 BP 120/54 L 08/20/21 11:50 Pulse Ox 96 08/20/21 11:50 BMI result Body Mass Index 31.6 Const: Other: Awake alert oriented x3 no acute distress Resp: Other: Clear to auscultation bilaterally no rales rhonchi or wheezes Cardio: Other: No S4; positive S1-S2; no S3 murmurs rubs or gallops GI: Other: Soft nontender nondistended with normoactive bowel sounds Extrem: Other: Weeping edema bilaterally; erythema mid tibial region distally with open ulceration. Objective Data Active Medications Albuterol Sulfate (Albuterol Sulfate 90 Mcg 8 Gm Inhaler) 2 puff INHALE RQ6H PRN PRN Reason: for wheezing Albuterol/Ipratropium (Albuterol/Iprat 2.5/0.5mg 3 Ml Ampul.Neb) 3 ml INHALE RQ6H PRN PRN Reason: wheezing Aspirin (Aspirin Enteric Coated 81 Mg Tablet.Dr) 81 mg PO DAILY [facility] Last Admin: 08/20/21 09:09 Dose: 81 mg Documented by: IRINA Budesonide (Budesonide 180 Mcg Aer.Pow.Ba) 1 puff INHALE BID [facility] Last Admin: 08/19/21 21:14 Dose: 1 puff Documented by: MARVA Dextrose (Dextrose 50 % 25 Gm/50 Ml Vial) 25 gm IVPUSH Q15M PRN; Protocol PRN Reason: per Hypoglycemia Standing Ord. Enoxaparin Sodium (Enoxaparin Sodium 40 Mg/0.4 Ml Syringe) 40 mg SUBCUT Q24H [facility] Last Admin: 08/19/21 14:59 Dose: 40 mg Documented by: RICARDOOPEElsi Fluticasone Propionate (Fluticasone Propionate 250 Mcg Blst.W.Dev) 1 puff INHALE RBID [facility] Last Admin: 08/20/21 07:05 Dose: Not Given Documented by: MELIDA Non-Admin Reason: Med Not Available Furosemide (Furosemide 20 Mg/2 Ml Vial) 20 mg IVPUSH BID@0830,1630 [facility]; Protocol Last Admin: 08/20/21 09:09 Dose: 20 mg Documented by: IRINA Glipizide (Glipizide 10 Mg Tablet) 10 mg PO BID [facility] Last Admin: 08/20/21 09:10 Dose: 10 mg Documented by: IRINA Glucose (Glucose Gel 15 Gm Gel..Gram.) 15 gm PO Q15M PRN; Protocol PRN Reason: per Hypoglycemia Standing Ord. Piperacillin Sod/Tazobactam (Sod 3.375 gm/ Sodium Chloride) 50 mls @ 100 mls/hr IV Q6H [facility] Last Infusion: 08/20/21 06:22 Dose: 0 mls/hr Documented by: LATOYA Vancomycin HCl 1,500 mg/ (Sodium Chloride) 500 mls @ 333.333 mls/hr IV Q24H [facility] Insulin Human Lispro (Insulin Lispro 100 Unit/Ml 3 Ml Vial) 0 unit SUBCUT QIDACHS [facility]; Protocol Last Admin: 08/20/21 08:51 Dose: Not Given Documented by: IRINA Non-Admin Reason: No Insulin Coverage Lisinopril (Lisinopril 20 Mg Tablet) 20 mg PO DAILY [facility]; Protocol Last Admin: 08/20/21 09:09 Dose: 20 mg Documented by: IRINA Metformin HCl (Metformin Hcl 500 Mg Tablet) 500 mg PO BID [facility] Last Admin: 08/20/21 09:09 Dose: 500 mg Documented by: IRINA Pharmacy Consult (Consult Rx Perform Med Rec) 1 each MISCELLANE ONCE PRN PRN Reason: Consult order Pharmacy Consult (Consult Rx Vancomycin Dosing) 1 each MISCELLANE DAILY PRN PRN Reason: Consult order Pravastatin Sodium (Pravastatin Sodium 40 Mg Tablet) 40 mg PO DAILY [facility] Last Admin: 08/20/21 09:09 Dose: 40 mg Documented by: IRINA Sodium Chloride (0.9 % Sodium Chloride Flush 3 Ml Syringe) 3 ml IVFLUSH QSHIFT [facility] Last Admin: 08/20/21 09:12 Dose: 3 ml Documented by: IRINA Vitamin D (Cholecalciferol (Vitamin D3) 25 Mcg Tablet) 50 mcg PO DAILY [facility] Last Admin: 08/20/21 09:09 Dose: 50 mcg Documented by: IRINA Labs CBC & Chem 7: 08/20/21 06:54 08/20/21 06:54 Labs: Laboratory Results - last 24 hr 08/19/21 08/19/21 08/19/21 12:25 12:25 12:25 MCV 96.9 MCH 31.9 MCHC 32.9 RDW 12.3 Plt Count 312 MPV 9.7 Immature Gran % (Auto) 0.7 H Neut % (Auto) 73.3 H Lymph % (Auto) 17.1 L [place] % (Auto) 8.3 Eos % (Auto) 0.3 Baso % (Auto) 0.3 Lymph # (Auto) 2.0 [place] # (Auto) 1.0 Eos # (Auto) 0.0 Baso # (Auto) 0.0 Abs Immat Gran (auto) 0.08 H Absolute Neuts (auto) 8.7 H Absolute Nucleated RBC 0.000 Nucleated RBC % (auto) 0.0 Anion Gap 15 Estim Creat Clear Calc 91.4 Estimated GFR > 60 POC Glucose Random Glucose 119 H Fasting Glucose Lactic Acid 2.2 H* Lactic Acid F/U @ 2Hr Lactic Acid F/U @ 4Hr Calcium 9.7 Magnesium 1.9 Total Bilirubin 0.7 Direct Bilirubin 0.4 AST 14 ALT 16 Alkaline Phosphatase 94 B-Natriuretic Peptide Total Protein 7.0 Albumin 4.0 COVID-19 (BREONNA) COVID-[employer] 08/19/21 08/19/21 08/19/21 12:25 12:32 14:48 MCV MCH MCHC RDW Plt Count MPV Immature Gran % (Auto) Neut % (Auto) Lymph % (Auto) [place] % (Auto) Eos % (Auto) Baso % (Auto) Lymph # (Auto) [place] # (Auto) Eos # (Auto) Baso # (Auto) Abs Immat Gran (auto) Absolute Neuts (auto) Absolute Nucleated RBC Nucleated RBC % (auto) Anion Gap Estim Creat Clear Calc Estimated GFR POC Glucose Random Glucose Fasting Glucose Lactic Acid Lactic Acid F/U @ 2Hr 2.3 H* Lactic Acid F/U @ 4Hr Calcium Magnesium Total Bilirubin Direct Bilirubin AST ALT Alkaline Phosphatase B-Natriuretic Peptide 77 Total Protein Albumin COVID-19 (BREONNA) Negative COVID-[place] Com See Note 08/19/21 08/19/2122 17:24 17:40 20:45 MCV MCH MCHC RDW Plt Count MPV Immature Gran % (Auto) Neut % (Auto) Lymph % (Auto) [place] % (Auto) Eos % (Auto) Baso % (Auto) Lymph # (Auto) [place] # (Auto) Eos # (Auto) Baso # (Auto) Abs Immat Gran (auto) Absolute Neuts (auto) Absolute Nucleated RBC Nucleated RBC % (auto) Anion Gap Estim Creat Clear Calc Estimated GFR POC Glucose 137 H 103 Random Glucose Fasting Glucose Lactic Acid Lactic Acid F/U @ 2Hr Lactic Acid F/U @ 4Hr 2.1 H* Calcium Magnesium Total Bilirubin Direct Bilirubin AST ALT Alkaline Phosphatase B-Natriuretic Peptide Total Protein Albumin COVID-19 (BREONNA) COVID-19 [employer] [facility] 08/20/21 08/20/21 08/20/21 06:54 06:54 07:04 MCV 98.9 H MCH 32.1 MCHC 32.4 RDW 12.3 Plt Count 230 D MPV 9.8 Immature Gran % (Auto) 0.7 H Neut % (Auto) 67.3 Lymph % (Auto) 21.3 [place] % (Auto) 9.5 Eos % (Auto) 0.9 Baso % (Auto) 0.3 Lymph # (Auto) 1.9 [place] # (Auto) 0.8 Eos # (Auto) 0.1 Baso # (Auto) 0.0 Abs Immat Gran (auto) 0.06 H Absolute Neuts (auto) 5.9 Absolute Nucleated RBC 0.000 Nucleated RBC % (auto) 0.0 Anion Gap 14 Estim Creat Clear Calc 98.6 Estimated GFR > 60 POC Glucose 107 Random Glucose Fasting Glucose 114 H Lactic Acid Lactic Acid F/U @ 2Hr Lactic Acid F/U @ 4Hr Calcium 8.9 D Magnesium Total Bilirubin 0.7 Direct Bilirubin AST 14 ALT 12 Alkaline Phosphatase 71 D B-Natriuretic Peptide Total Protein 5.7 L Albumin 3.2 L COVID-19 (BREONNA) COVID-19 [employer] Com Assessment and Plan (1) Cellulitis: Status: Acute (2) Type 2 diabetes mellitus with diabetic neuropathy, unspecified: Status: Acute (3) Benign essential hypertension: Status: Acute (4) Pure hypercholesterolemia: Status: Acute Plan 76-year-old male with a history of coronary artery disease, hypertension and type 2 diabetes not requiring insulin presents with approximately 1 week of left lower extremity redness and swelling. He states this started as a blister began to weep and then his legs became more read as days went by along with being more painful. He states denies fever and chills. States he ?furniture walks at home?. Minimal ambulation electric wheelchair. At this time he will be admitted for IV antibiotics 1. LLE Cellulitis -IV Vanco/Zosyn -IV lasix . . . Fair response.... Will continue -follow renals/divalents 2. DMII -continue outpatient therapies -Sliding scale insulin to cover -adjust as indicted 3.HTN -acceptable control on outpatient therapies -continue same...adjust as indicated 4.Hyperlipidemia -continue statin Full Code Lovenox Requires inpatient hospitalization secondary to need for IV antibiotics and IV diuresis Quality Stroke Does the patient have a stroke diagnosis?: No VTE Prior VTE?: No VTE Risk Level:: Medical - moderate - high VTE Device Contraindication: Patient Refused VTE Drug Contraindication: N/A - Med Ordered
[2021-08-20 13:34] LABS: Glucose, Whole Blood 117 mg/dL (60-115)
[2021-08-20] MEDS: Enoxaparin Sodium 40 MG/0.4 ML SYRINGE SUBCUT (14:07)
--- NOTE | 2021-08-20 14:20 | MHC.CM.PN ---
IMM 08/20/21, EMR REVIEWED, PT ADMITTED W/LLE CELLULITIS, CM MET W/PT WHO IS A&O, PT REPORTS HE LIVES ALONE, USES A CANE AND ELECTRIC W/C AT TIMES, PT HAS A SHOWER BENCH AND GRAB BARS IN SHOWER, PT DENIES HOME SERVICES, PT MAY BENEFIT AND IS OPEN TO [facility] SERVICES, REFERRAL WILL BE PLACED TO [facility], PT HAS NO PREFERENCE. PT VERIFIES PCP IS CRISTY CLARK, PT REPORTS HIS FRIEND FARSHAD ALONSO [phone] HIS HCP, COPY REQUESTED. D/C PLAN: HOME VS HOME W/NEW [facility]NA, PT WILL NEED TRANSPORT HOME [facility] X2
[2021-08-20] MEDS: vancomycin HCL 1,500 MG in 0.9 % Sodium Chloride 500 ML 333.33 MG IV (15:39)
--- NOTE | 2021-08-20 17:19 | PC.NURSE ---
insulin held - late dinner in ED overflow
[2021-08-20 17:26] VITALS: BP 116/59; PULSE 77; RESP 16; TEMP 37; O2SAT 97
--- NOTE | 2021-08-20 17:36 | PC.NURSE ---
obtained report from elliot for remainder of shift, patient a&o, vss, pts insulin held based on sliding scale pts bs was 109, iv antibiotics being given per order, pt urinating in urinal at bedside, call arriaga within reach, will continue to monitor.
[2021-08-20 17:41] LABS: Glucose, Whole Blood 109 mg/dL (60-115)
--- NOTE | 2021-08-20 18:34 | PC.NURSE ---
pt a&o3, vss, pt denies any pain at this time, no insulin coverage needed, will continue to monitor
[2021-08-20 20:00] VITALS: BP 136/52; PULSE 90; RESP 16; TEMP 36.7; O2SAT 95
--- NOTE | 2021-08-20 20:23 | PC.NURSE ---
PATIENT WAS ASSISTED TO BEDSIDE COMMODE ,PATIENT HAD LARGE BOWEL MOVEMENT .
[2021-08-20 21:22] LABS: Glucose, Whole Blood 116 mg/dL (60-115)
--- NOTE | 2021-08-20 22:01 | PC.NURSE ---
patient was given a bed bath ,and bedding was change .
[2021-08-21] VITALS (8 sets, daily range): BP systolic 95–140; BP diastolic 42–64; PULSE 55–88; RESP 14–20; TEMP 36.1–36.9; O2SAT 91–95
[2021-08-21] MEDS: Piperacillin Sodium/Tazobactam 3.375 GM in 0.9 % Sodium Chloride 50 ML IV ×4 (00:48→18:28)
[2021-08-21 07:31] LABS: MANUAL DIFF FLAG NO
[2021-08-21 07:34] LABS: Basophils Percent Auto 0.3 % (0-2); Eosinophils Absolute Auto 0.1 X10*3/uL (0.0-0.4); Hematocrit 44.3 % (42.0-52.0); Hemoglobin 14.2 g/dl (14.0-18.0); Imm Gran Abs Auto 0.06 X10*3/uL (0.00-0.03); Imm Gran Pct Auto 0.6 % (0.0-0.4); Lymphocytes Absolute Auto 2.1 X10*3/uL (1.2-4.9); Lymphocytes Percent Auto 21.1 % (20-40); Mean Corpuscular HGB Conc 32.1 g/dl (31.0-36.0); Mean Corpuscular Hemoglobin 31.5 pg (27.0-33.0); Mean Corpuscular Volume 98.2 fL (80.0-98.0); Monocytes Absolute Auto 0.8 X10*3/uL (0.1-1.2); Monocytes Percent Auto 8.5 % (2-11); Neutrophils Absolute Auto 6.7 x10*3/uL (2.0-8.3); Neutrophils Percent Auto 68.5 % (45-73); Platelet Count 238 X10*3/uL (160-400); Red Blood Count 4.51 X10*6/uL (4.60-5.80); Red Cell Distribution Width 12.5 % (11.0-16.0); White Blood Count 9.8 X10*3/uL (4.8-10.8)
[2021-08-21 07:51] LABS: Alanine Aminotransferase 11 U/L (0-40); Albumin Level 3.3 g/dL (3.5-5.0); Alkaline Phosphatase 67 U/L (39-117); Anion Gap 13 (12-20); Aspartate Amino Transferase 11 U/L (5-37); Bilirubin Total 0.6 mg/dL (0.0-1.0); Blood Urea Nitrogen 19 mg/dL (9-16); Calcium 9.1 mg/dL (8.4-10.2); Carbon Dioxide 29 mmol/L (22-29); Chloride 100 mmol/L (96-108); Creatinine Clr Calc Pharmacy 98.6; Estimated Glomerular Filt Rate > 60; Glucose Fasting 81 mg/dL (60-99); Potassium 4.3 mmol/L (3.3-5.1); Sodium 138 mmol/L (135-145); Total Protein 5.9 g/dL (6.5-8.0)
--- NOTE | 2021-08-21 08:20 | P.CDIC_ITS ---
CDI Concurrent Query Documentation Clarification: PHYSICIAN'S DOCUMENTATION REQUEST Date of Query: 08/21/21820 Patient Name: Juvenal Luz Admit Date: 08/19/21 Dear Doctor, A review of the medical record indicates additional documentation may be needed. Please review below and update the documentation accordingly. Clinical Indicators: Documentation includes the conditions of Cellulitis and Diabetes Mellitus. Additional clinical indicators in the record include: Risk Factors/Clinical Indicators/Treatments Per ED: History of Diabetes Mellitus Per ED: left lower extremity redness, tender, odor draining wound Per H&P: left lower extremity cellulitis Please clarify the relationship between these conditions: * Yes, Cellulitis is related to / associated with / due to Diabetes Mellitus * No, Cellulitis is not related to / associated with / due to Diabetes Mellitus * Unable to determine Use of terms such as suspected, likely, concern for, or probable (associated with a specific diagnosis that is being evaluated, monitored, or treated as if it exists) are acceptable and can be coded in the inpatient setting, when documented at the time of discharge. Thank you, Octavia Jeffries RN Extension: [phone] Please use your independent medical judgment in providing your response. THIS QUERY IS PART OF THE PERMANENT MEDICAL RECORD Provider Response: Other Other Diagnosis: Cellulitis likely related to chronic venous stasis disease
[2021-08-21 08:26] LABS: Glucose, Whole Blood 191 mg/dL (60-115)
[2021-08-21] MEDS: Pravastatin Sodium 40 MG TABLET PO (09:48)
[2021-08-21] MEDS: metFORMIN HCl 500 MG TABLET PO ×2 (09:48→20:40)
[2021-08-21] MEDS: lisinopriL 20 MG TABLET PO (09:48)
[2021-08-21] MEDS: Aspirin Enteric Coated 81 MG TABLET.DR PO (09:48)
[2021-08-21] MEDS: Cholecalciferol (Vitamin D3) 25 MCG TABLET 50 MCG PO (09:48)
[2021-08-21] MEDS: glipiZIDE 10 MG TABLET PO ×2 (09:48→20:40)
[2021-08-21] MEDS: Furosemide 20 MG/2 ML VIAL IVPUSH ×2 (09:49→17:15)
[2021-08-21] MEDS: 0.9 % Sodium Chloride Flush 3 ML SYRINGE IVFLUSH ×3 (09:49→20:40)
[2021-08-21] MEDS: oxyCODONE HCl Immed Release 5 MG TABLET PO ×2 (12:14→19:38)
--- NOTE | 2021-08-21 12:48 | P.PNIM_ITS ---
Subjective Subjective Date of Service: 08/21/21 Interval History: No acute issues overnight. Legs still bothersome Review of Systems Denies chest pain Denies shortness of breath Denies nausea vomiting diarrhea Denies fever chills Physical Exam Vital Signs: Vital Signs: Last Vital Signs Temp 97.1 F 08/21/21 11:35 Pulse 76 08/21/21 12:31 Resp 18 08/21/21 11:35 BP 113/53 L 08/21/21 12:31 Pulse Ox 92 08/21/21 12:31 BMI result Body Mass Index 31.6 Const: Other: Awake alert oriented x3 no acute distress Resp: Other: Clear to auscultation bilaterally no rales rhonchi or wheezes Cardio: Other: No S4; positive S1-S2; no S3 murmurs rubs or gallops GI: Other: Soft nontender nondistended with normoactive bowel sounds Extrem: Other: Weeping edema bilaterally; erythema mid tibial region distally with open ulceration; essentially no change since admission Objective Data Active Medications Albuterol Sulfate (Albuterol Sulfate 90 Mcg 8 Gm Inhaler) 2 puff INHALE RQ6H PRN PRN Reason: for wheezing Albuterol/Ipratropium (Albuterol/Iprat 2.5/0.5mg 3 Ml Ampul.Neb) 3 ml INHALE RQ6H PRN PRN Reason: wheezing Aspirin (Aspirin Enteric Coated 81 Mg Tablet.Dr) 81 mg PO DAILY [facility] Last Admin: 08/21/21 09:48 Dose: 81 mg Documented by: MYKEL Dextrose (Dextrose 50 % 25 Gm/50 Ml Vial) 25 gm IVPUSH Q15M PRN; Protocol PRN Reason: per Hypoglycemia Standing Ord. Enoxaparin Sodium (Enoxaparin Sodium 40 Mg/0.4 Ml Syringe) 40 mg SUBCUT Q24H [facility] Last Admin: 08/20/21 14:07 Dose: 40 mg Documented by: IRINA Furosemide (Furosemide 20 Mg/2 Ml Vial) 20 mg IVPUSH BID@0830,1630 [facility]; Protocol Last Admin: 08/21/21 09:49 Dose: 20 mg Documented by: YMKEL Glipizide (Glipizide 10 Mg Tablet) 10 mg PO BID [facility] Last Admin: 08/21/21 09:48 Dose: 10 mg Documented by: MYKEL Glucose (Glucose Gel 15 Gm Gel..Gram.) 15 gm PO Q15M PRN; Protocol PRN Reason: per Hypoglycemia Standing Ord. Piperacillin Sod/Tazobactam (Sod 3.375 gm/ Sodium Chloride) 50 mls @ 100 mls/hr IV Q6H [facility] Last Infusion: 08/21/21 07:53 Dose: 0 mls/hr Documented by: HITESH Vancomycin HCl 1,500 mg/ (Sodium Chloride) 500 mls @ 333.333 mls/hr IV Q24H [facility] Last Infusion: 08/20/21 17:18 Dose: 0 mls/hr Documented by: CELE Insulin Human Lispro (Insulin Lispro 100 Unit/Ml 3 Ml Vial) 0 unit SUBCUT QIDACHS [facility]; Protocol Last Admin: 08/21/21 12:19 Dose: Not Given Documented by: CHUCHO Non-Admin Reason: No Insulin Coverage Lisinopril (Lisinopril 20 Mg Tablet) 20 mg PO DAILY [facility]; Protocol Last Admin: 08/21/21 09:48 Dose: 20 mg Documented by: MYKEL Metformin HCl (Metformin Hcl 500 Mg Tablet) 500 mg PO BID [facility] Last Admin: 08/21/21 09:48 Dose: 500 mg Documented by: MYKEL Oxycodone HCl (Oxycodone Hcl Immed Release 5 Mg Tablet) 5 mg PO Q4H PRN PRN Reason: Pain, Moderate (Pain Scale 4-6 Last Admin: 08/21/21 12:14 Dose: 5 mg Documented by: CHUCHO Pharmacy Consult (Consult Rx Perform Med Rec) 1 each MISCELLANE ONCE PRN PRN Reason: Consult order Pharmacy Consult (Consult Rx Vancomycin Dosing) 1 each MISCELLANE DAILY PRN PRN Reason: Consult order Pravastatin Sodium (Pravastatin Sodium 40 Mg Tablet) 40 mg PO DAILY [facility] Last Admin: 08/21/21 09:48 Dose: 40 mg Documented by: MYKEL Sodium Chloride (0.9 % Sodium Chloride Flush 3 Ml Syringe) 3 ml IVFLUSH QSHIFT [facility] Last Admin: 08/21/21 09:49 Dose: 3 ml Documented by: MYKEL Vitamin D (Cholecalciferol (Vitamin D3) 25 Mcg Tablet) 50 mcg PO DAILY [facility] Last Admin: 08/21/21 09:48 Dose: 50 mcg Documented by: MYKEL Labs CBC & Chem 7: 08/21/21 07:07 08/21/21 07:07 Labs: Laboratory Results - last 24 hr 08/20/21 08/20/21 08/20/21 13:27 17:35 20:54 MCV MCH MCHC RDW Plt Count MPV Immature Gran % (Auto) Neut % (Auto) Lymph % (Auto) [place] % (Auto) Eos % (Auto) Baso % (Auto) Lymph # (Auto) [place] # (Auto) Eos # (Auto) Baso # (Auto) Abs Immat Gran (auto) Absolute Neuts (auto) Absolute Nucleated RBC Nucleated RBC % (auto) Anion Gap Estim Creat Clear Calc Estimated GFR POC Glucose 117 H 109 116 H Fasting Glucose Calcium Total Bilirubin AST ALT Alkaline Phosphatase Total Protein Albumin 08/21/21 08/21/21 08/21/21 07:07 07:07 08:23 MCV 98.2 H MCH 31.5 MCHC 32.1 RDW 12.5 Plt Count 238 MPV 10.0 Immature Gran % (Auto) 0.6 H Neut % (Auto) 68.5 Lymph % (Auto) 21.1 [place] % (Auto) 8.5 Eos % (Auto) 1.0 Baso % (Auto) 0.3 Lymph # (Auto) 2.1 [place] # (Auto) 0.8 Eos # (Auto) 0.1 Baso # (Auto) 0.0 Abs Immat Gran (auto) 0.06 H Absolute Neuts (auto) 6.7 Absolute Nucleated RBC 0.000 Nucleated RBC % (auto) 0.0 Anion Gap 13 Estim Creat Clear Calc 98.6 Estimated GFR > 60 POC Glucose 191 H Fasting Glucose 81 Calcium 9.1 Total Bilirubin 0.6 AST 11 ALT 11 Alkaline Phosphatase 67 Total Protein 5.9 L Albumin 3.3 L Microbiology Microbiology Results: Microbiology 08/19/21 12:32 Blood Culture - Preliminary Blood - Venous No growth after 24 hours. 08/19/21 12:25 Blood Culture - Preliminary Blood - Venous No growth after 24 hours. Assessment and Plan (1) Cellulitis: Status: Acute (2) Type 2 diabetes mellitus with diabetic neuropathy, unspecified: Status: Acute (3) Benign essential hypertension: Status: Acute (4) Pure hypercholesterolemia: Status: Acute Plan 76-year-old male with a history of coronary artery disease, hypertension and type 2 diabetes not requiring insulin presents with approximately 1 week of left lower extremity redness and swelling. He states this started as a blister began to weep and then his legs became more read as days went by along with being more painful. He states denies fever and chills. States he ?furniture walks at home?. Minimal ambulation electric wheelchair. Essentially no change with the 1st 24 hours of antibiotics 1. LLE Cellulitis -IV Vanco/Zosyn...BC - x 24hrs -IV lasix . . . Fair response.... Will continue -follow renals/divalents 2. DMII -continue outpatient therapies -Sliding scale insulin to cover -adjust as indicted 3.HTN -acceptable control on outpatient therapies -continue same...adjust as indicated 4.Hyperlipidemia -continue statin Full Code Lovenox Requires ongoing inpatient hospitalization likely for 2 midnights secondary to minimal response to IV ABTX first 24hras Quality Stroke Does the patient have a stroke diagnosis?: No VTE Prior VTE?: No VTE Risk Level:: Medical - moderate - high VTE Device Contraindication: Patient Refused VTE Drug Contraindication: N/A - Med Ordered
[2021-08-21 13:57] LABS: Vancomycin Trough 8.9 mcg/mL (10.0-20.0)
--- NOTE | 2021-08-21 14:08 | HE.PHANOTE ---
RE VANCOMYCIN Trough subtherapuetic at 8.9, will increase dose to 1750mg q24h
[2021-08-21] MEDS: Enoxaparin Sodium 40 MG/0.4 ML SYRINGE SUBCUT (14:42)
[2021-08-21] MEDS: vancomycin HCL 1,000 MG, vancomycin HCL 750 MG in 0.9 % Sodium Chloride 500 ML 267.5 MG IV (14:53)
--- NOTE | 2021-08-21 15:39 | MHC.CM.PN ---
EMR REVIEWED, PT HAS HAD NO IMPROVEMENT IN CELLULITIS OF LLE, WILL CONT IV ABX, PHYSICAL THERAPY REC'ING STR HOWEVER THIS CM MET W/PT WHO REPORTS HE DOES NOT WANT STR AND PREFERS HOME W/[facility], REFERRAL PLACED AND CM WILL CONT TO FOLLOW D/C NEEDS.
[2021-08-21 16:39] LABS: Glucose, Whole Blood 102 mg/dL (60-115)
[2021-08-21 16:54] LABS: Glucose, Whole Blood 100 mg/dL (60-115)
[2021-08-21 20:22] LABS: Glucose, Whole Blood 129 mg/dL (60-115)
[2021-08-22] VITALS (7 sets, daily range): BP systolic 99–125; BP diastolic 50–60; PULSE 62–86; RESP 17–20; TEMP 36.3–37.3; O2SAT 93–98
[2021-08-22] MEDS: Piperacillin Sodium/Tazobactam 3.375 GM in 0.9 % Sodium Chloride 50 ML IV ×2 (00:22→06:25)
[2021-08-22 05:48] LABS: MANUAL DIFF FLAG NO
[2021-08-22 05:53] LABS: Basophils Percent Auto 0.3 % (0-2); Eosinophils Absolute Auto 0.2 X10*3/uL (0.0-0.4); Eosinophils Percent Auto 1.6 % (0-4); Hematocrit 43.4 % (42.0-52.0); Hemoglobin 13.8 g/dl (14.0-18.0); Imm Gran Abs Auto 0.06 X10*3/uL (0.00-0.03); Imm Gran Pct Auto 0.5 % (0.0-0.4); Lymphocytes Absolute Auto 2.6 X10*3/uL (1.2-4.9); Lymphocytes Percent Auto 23.5 % (20-40); Mean Corpuscular HGB Conc 31.8 g/dl (31.0-36.0); Mean Corpuscular Hemoglobin 31.2 pg (27.0-33.0); Mean Corpuscular Volume 98.2 fL (80.0-98.0); Mean Platelet Volume 9.8 fL (9.4-12.4); Monocytes Percent Auto 9.1 % (2-11); Neutrophils Absolute Auto 7.2 x10*3/uL (2.0-8.3); Platelet Count 241 X10*3/uL (160-400); Red Blood Count 4.42 X10*6/uL (4.60-5.80); Red Cell Distribution Width 12.5 % (11.0-16.0); White Blood Count 11.1 X10*3/uL (4.8-10.8)
[2021-08-22 06:12] LABS: Alanine Aminotransferase 13 U/L (0-40); Albumin Level 3.3 g/dL (3.5-5.0); Alkaline Phosphatase 67 U/L (39-117); Anion Gap 13 (12-20); Aspartate Amino Transferase 14 U/L (5-37); Bilirubin Total 0.6 mg/dL (0.0-1.0); Blood Urea Nitrogen 26 mg/dL (9-16); Calcium 8.9 mg/dL (8.4-10.2); Carbon Dioxide 29 mmol/L (22-29); Chloride 99 mmol/L (96-108); Creatinine Clr Calc Pharmacy 77.5; Estimated Glomerular Filt Rate > 60; Glucose Fasting 77 mg/dL (60-99); Potassium 4.5 mmol/L (3.3-5.1); Sodium 136 mmol/L (135-145); Total Protein 5.8 g/dL (6.5-8.0)
[2021-08-22 07:24] LABS: Glucose, Whole Blood 93 mg/dL (60-115)
[2021-08-22] MEDS: oxyCODONE HCl Immed Release 5 MG TABLET PO ×3 (08:11→22:41)
[2021-08-22] MEDS: lisinopriL 20 MG TABLET PO (08:11)
[2021-08-22] MEDS: Furosemide 20 MG/2 ML VIAL IVPUSH ×2 (08:11→16:11)
[2021-08-22] MEDS: metFORMIN HCl 500 MG TABLET PO ×2 (08:11→20:26)
[2021-08-22] MEDS: glipiZIDE 10 MG TABLET PO ×2 (08:11→20:26)
[2021-08-22] MEDS: Aspirin Enteric Coated 81 MG TABLET.DR PO (08:11)
[2021-08-22] MEDS: Cholecalciferol (Vitamin D3) 25 MCG TABLET 50 MCG PO (08:11)
[2021-08-22] MEDS: Pravastatin Sodium 40 MG TABLET PO (08:11)
[2021-08-22] MEDS: 0.9 % Sodium Chloride Flush 3 ML SYRINGE IVFLUSH ×2 (08:14→16:09)
--- NOTE | 2021-08-22 10:13 | PC.NURSE ---
Skin/Wound assessment completed today. Patient has cellulitis with venous ulcers on anterior and posterior lower leg and to lateral side of left foot. Cleansed with wound cleanser, then Triad applied to edges of wounds and on dark slough covered with silver alginate-wrapped with non woven gauze and roll gauze. Bilateral lower legs has very dry skin and hemosiderin staining.
--- NOTE | 2021-08-22 11:16 | HO.PM.IMPN ---
Subjective Subjective Date of Service: 08/22/21 Interval History: No acute issues overnight. Legs still bothersome...afebrile Review of Systems Denies chest pain Denies shortness of breath Denies nausea vomiting diarrhea Denies fever chills Physical Exam Vital Signs: Vital Signs: Last Vital Signs Temp 97.8 F 08/22/21 07:39 Pulse 62 08/22/21 09:12 Resp 18 08/22/21 07:39 BP 108/53 L 08/22/21 09:12 Pulse Ox 94 08/22/21 09:12 BMI result Body Mass Index 31.6 Const: Other: Awake alert oriented x3 no acute distress Resp: Other: Clear to auscultation bilaterally no rales rhonchi or wheezes Cardio: Other: No S4; positive S1-S2; no S3 murmurs rubs or gallops GI: Other: Soft nontender nondistended with normoactive bowel sounds Extrem: Other: Weeping edema bilaterally; erythema mid tibial region distally with open ulceration; essentially no change since admission Objective Data Active Medications Albuterol Sulfate (Albuterol Sulfate 90 Mcg 8 Gm Inhaler) 2 puff INHALE RQ6H PRN PRN Reason: for wheezing Albuterol/Ipratropium (Albuterol/Iprat 2.5/0.5mg 3 Ml Ampul.Neb) 3 ml INHALE RQ6H PRN PRN Reason: wheezing Aspirin (Aspirin Enteric Coated 81 Mg Tablet.Dr) 81 mg PO DAILY [facility] Last Admin: 08/22/21 08:11 Dose: 81 mg Documented by: TE Dextrose (Dextrose 50 % 25 Gm/50 Ml Vial) 25 gm IVPUSH Q15M PRN; Protocol PRN Reason: per Hypoglycemia Standing Ord. Enoxaparin Sodium (Enoxaparin Sodium 40 Mg/0.4 Ml Syringe) 40 mg SUBCUT Q24H [facility] Last Admin: 08/21/21 14:42 Dose: 40 mg Documented by: CHUCHO Furosemide (Furosemide 20 Mg/2 Ml Vial) 20 mg IVPUSH BID@0830,1630 [facility]; Protocol Last Admin: 08/22/21 08:11 Dose: 20 mg Documented by: TE Glipizide (Glipizide 10 Mg Tablet) 10 mg PO BID [facility] Last Admin: 08/22/21 08:11 Dose: 10 mg Documented by: TE Glucose (Glucose Gel 15 Gm Gel..Gram.) 15 gm PO Q15M PRN; Protocol PRN Reason: per Hypoglycemia Standing Ord. Vancomycin HCl 1,000 mg/Vancomycin HCl 750 mg/ Sodium Chloride 535 mls @ 267.5 mls/hr IV Q24H [facility] Last Infusion: 08/21/21 17:17 Dose: 0 mls/hr Documented by: CHUCHO Insulin Human Lispro (Insulin Lispro 100 Unit/Ml 3 Ml Vial) 0 unit SUBCUT QIDACHS [facility]; Protocol Last Admin: 08/22/21 07:15 Dose: Not Given Documented by: TE Non-Admin Reason: No Insulin Coverage Lisinopril (Lisinopril 20 Mg Tablet) 20 mg PO DAILY [facility]; Protocol Last Admin: 08/22/21 08:11 Dose: 20 mg Documented by: TE Metformin HCl (Metformin Hcl 500 Mg Tablet) 500 mg PO BID [facility] Last Admin: 08/22/21 08:11 Dose: 500 mg Documented by: TE Oxycodone HCl (Oxycodone Hcl Immed Release 5 Mg Tablet) 5 mg PO Q4H PRN PRN Reason: Pain, Moderate (Pain Scale 4-6 Last Admin: 08/22/21 08:11 Dose: 5 mg Documented by: TE Pharmacy Consult (Consult Rx Perform Med Rec) 1 each MISCELLANE ONCE PRN PRN Reason: Consult order Pharmacy Consult (Consult Rx Vancomycin Dosing) 1 each MISCELLANE DAILY PRN PRN Reason: Consult order Pravastatin Sodium (Pravastatin Sodium 40 Mg Tablet) 40 mg PO DAILY [facility] Last Admin: 08/22/21 08:11 Dose: 40 mg Documented by: TE Sodium Chloride (0.9 % Sodium Chloride Flush 3 Ml Syringe) 3 ml IVFLUSH QSHIFT [facility] Last Admin: 08/22/21 08:14 Dose: 3 ml Documented by: TE Vitamin D (Cholecalciferol (Vitamin D3) 25 Mcg Tablet) 50 mcg PO DAILY [facility] Last Admin: 08/22/21 08:11 Dose: 50 mcg Documented by: TE Labs CBC & Chem 7: 08/22/21 05:35 08/22/21 05:35 Labs: Laboratory Results - last 24 hr 08/21/21 08/21/2122 11:57 13:12 16:48 MCV MCH MCHC RDW Plt Count MPV Immature Gran % (Auto) Neut % (Auto) Lymph % (Auto) [place] % (Auto) Eos % (Auto) Baso % (Auto) Lymph # (Auto) [place] # (Auto) Eos # (Auto) Baso # (Auto) Abs Immat Gran (auto) Absolute Neuts (auto) Absolute Nucleated RBC Nucleated RBC % (auto) Anion Gap Estim Creat Clear Calc Estimated GFR POC Glucose 102 100 Fasting Glucose Calcium Total Bilirubin AST ALT Alkaline Phosphatase Total Protein Albumin Vancomycin Trough 8.9 L 08/21/21 08/22/21 08/22/21 20:11 05:35 05:35 MCV 98.2 H MCH 31.2 MCHC 31.8 RDW 12.5 Plt Count 241 MPV 9.8 Immature Gran % (Auto) 0.5 H Neut % (Auto) 65.0 Lymph % (Auto) 23.5 [place] % (Auto) 9.1 Eos % (Auto) 1.6 Baso % (Auto) 0.3 Lymph # (Auto) 2.6 [place] # (Auto) 1.0 Eos # (Auto) 0.2 Baso # (Auto) 0.0 Abs Immat Gran (auto) 0.06 H Absolute Neuts (auto) 7.2 Absolute Nucleated RBC 0.000 Nucleated RBC % (auto) 0.0 Anion Gap 13 Estim Creat Clear Calc 77.5 Estimated GFR > 60 POC Glucose 129 H Fasting Glucose 77 Calcium 8.9 Total Bilirubin 0.6 AST 14 ALT 13 Alkaline Phosphatase 67 Total Protein 5.8 L Albumin 3.3 L Vancomycin Trough 08/22/21 07:13 MCV MCH MCHC RDW Plt Count MPV Immature Gran % (Auto) Neut % (Auto) Lymph % (Auto) [place] % (Auto) Eos % (Auto) Baso % (Auto) Lymph # (Auto) [place] # (Auto) Eos # (Auto) Baso # (Auto) Abs Immat Gran (auto) Absolute Neuts (auto) Absolute Nucleated RBC Nucleated RBC % (auto) Anion Gap Estim Creat Clear Calc Estimated GFR POC Glucose 93 Fasting Glucose Calcium Total Bilirubin AST ALT Alkaline Phosphatase Total Protein Albumin Vancomycin Trough Microbiology Microbiology Results: Microbiology 08/19/21 12:25 Blood Culture - Preliminary Blood - Venous Prelim: GPC Gram Stain only 08/19/21 12:32 Blood Culture - Preliminary Blood - Venous No growth after 48 hours. Assessment and Plan (1) Cellulitis: Status: Acute (2) Type 2 diabetes mellitus with diabetic neuropathy, unspecified: Status: Acute (3) HTN (hypertension): Status: Acute Plan 76-year-old male with a history of coronary artery disease, hypertension and type 2 diabetes not requiring insulin presents with approximately 1 week of left lower extremity redness and swelling. He states this started as a blister began to weep and then his legs became more read as days went by along with being more painful. He states denies fever and chills. States he ?furniture walks at home?. Minimal ambulation electric wheelchair. Essentially no change with the 1st 24 hours of antibiotics 1. LLE Cellulitis -IV Vanco/Zosyn...BC - x 24hrs. Switch to Doxycyline upon D/C -IV lasix . . . Fair response.... Will continue -follow renals/divalents 2. DMII -continue outpatient therapies -Sliding scale insulin to cover -adjust as indicted 3.HTN -acceptable control on outpatient therapies -continue same...adjust as indicated 4.Hyperlipidemia -continue statin Full Code Lovenox Requires ongoing inpatient hospitalization likely for 2 midnights going foward secondary to minimal response to IV ABTX Quality Stroke Does the patient have a stroke diagnosis?: No VTE Prior VTE?: No VTE Risk Level:: Medical - moderate - high VTE Device Contraindication: Patient Refused VTE Drug Contraindication: N/A - Med Ordered
[2021-08-22 11:25] LABS: Glucose, Whole Blood 188 mg/dL (60-115)
--- NOTE | 2021-08-22 11:33 | P.CNID_ITS ---
History of Present Illness Data of Consult Service Date: 08/22/21 Requesting physician: Israel Ballard Primary Care Provider: Billy Longoria MD HPI Reason for consult: left leg erythema,blister,bacteremia He noticed left leg garcia blister formation and pain one week ago. He felt chilled as well. He had some purulent drainage at blister site and erythema extending down leg through second toe. Blood culture 1/2 gram positive cocci. He denies prior cellulitis Review of Systems Review of Systems: Yes all other systems are reviewed and are negative [facility] Past Medical History Medical History (Updated 08/22/21 @ 11:37 by Meggan Hedrick MD) Bacteremia Benign essential hypertension CAD (coronary artery disease) COPD (chronic obstructive pulmonary disease) COPD (chronic obstructive pulmonary disease) Coronary artery disease Depression DM2 (diabetes mellitus, type 2) Erectile disorder due to medical condition in male HLD (hyperlipidemia) HTN (hypertension) Neuropathy Obesity (BMI 30-39.9) Obesity (BMI 30.0-34.9) FADY (obstructive sleep apnea) Primary osteoarthritis of both knees Psoriasis Pulmonary hypertension Pure hypercholesterolemia Type 2 diabetes mellitus with diabetic neuropathy, unspecified Vitamin D deficiency Family History Family History Father Medical history unknown Mother Cancer Family history: reviewed and not pertinent Surgical History Surgical History No pertinent past surgical history Social History Social History Household Members: None Housing: Apartment Do you presently have visiting nurse or other home services: Yes (homemaker 3 hours of fridays) Alcohol intake: current Alcohol intake frequency: does not drink Patient Tobacco Use Status: Current everyday Tobacco user Tobacco use type: Cigarette Cigarette Packs Per Day: 0.25 Cigarettes Per Day: 5.0 Years Smoked: 59 years Second Hand Smoke Exposure: No service: No Current occupational status: retired Meds Allergies Allergy/AdvReac Type Severity Reaction Status Date / Time Fish Containing Products Allergy Severe ANAPHYLAXIS Verified 07/17/21 10:48 shellfish derived Allergy Severe ANAPHYLAXIS Verified 07/17/21 10:48 Active Medications: Current Medications Albuterol Sulfate (Albuterol Sulfate 90 Mcg 8 Gm Inhaler) 2 puff INHALE RQ6H PRN PRN Reason: for wheezing Albuterol/Ipratropium (Albuterol/Iprat 2.5/0.5mg 3 Ml Ampul.Neb) 3 ml INHALE RQ6H PRN PRN Reason: wheezing Aspirin (Aspirin Enteric Coated 81 Mg Tablet.) 81 mg PO DAILY [facility] Last Admin: 08/22/21 08:11 Dose: 81 mg Documented by: Dextrose (Dextrose 50 % 25 Gm/50 Ml Vial) 25 gm IVPUSH Q15M PRN; Protocol PRN Reason: per Hypoglycemia Standing Ord. Enoxaparin Sodium (Enoxaparin Sodium 40 Mg/0.4 Ml Syringe) 40 mg SUBCUT Q24H [facility] Last Admin: 08/21/21 14:42 Dose: 40 mg Documented by: Furosemide (Furosemide 20 Mg/2 Ml Vial) 20 mg IVPUSH BID@0830,1630 [facility]; Protocol Last Admin: 08/22/21 08:11 Dose: 20 mg Documented by: Glipizide (Glipizide 10 Mg Tablet) 10 mg PO BID [facility] Last Admin: 08/22/21 08:11 Dose: 10 mg Documented by: Glucose (Glucose Gel 15 Gm Gel..Gram.) 15 gm PO Q15M PRN; Protocol PRN Reason: per Hypoglycemia Standing Ord. Vancomycin HCl 1,000 mg/Vancomycin HCl 750 mg/ Sodium Chloride 535 mls @ 267.5 mls/hr IV Q24H [facility] Last Infusion: 08/21/21 17:17 Dose: Infused Documented by: Insulin Human Lispro (Insulin Lispro 100 Unit/Ml 3 Ml Vial) 0 unit SUBCUT QIDACHS [facility]; Protocol Last Admin: 08/22/21 07:15 Dose: Not Given Documented by: Lisinopril (Lisinopril 20 Mg Tablet) 20 mg PO DAILY [facility]; Protocol Last Admin: 08/22/21 08:11 Dose: 20 mg Documented by: Metformin HCl (Metformin Hcl 500 Mg Tablet) 500 mg PO BID [facility] Last Admin: 08/22/21 08:11 Dose: 500 mg Documented by: Oxycodone HCl (Oxycodone Hcl Immed Release 5 Mg Tablet) 5 mg PO Q4H PRN PRN Reason: Pain, Moderate (Pain Scale 4-6 Last Admin: 08/22/21 08:11 Dose: 5 mg Documented by: Pharmacy Consult (Consult Rx Perform Med Rec) 1 each MISCELLANE ONCE PRN PRN Reason: Consult order Pharmacy Consult (Consult Rx Vancomycin Dosing) 1 each MISCELLANE DAILY PRN PRN Reason: Consult order Pravastatin Sodium (Pravastatin Sodium 40 Mg Tablet) 40 mg PO DAILY [facility] Last Admin: 08/22/21 08:11 Dose: 40 mg Documented by: Sodium Chloride (0.9 % Sodium Chloride Flush 3 Ml Syringe) 3 ml IVFLUSH QSHIFT [facility] Last Admin: 08/22/21 08:14 Dose: 3 ml Documented by: Vitamin D (Cholecalciferol (Vitamin D3) 25 Mcg Tablet) 50 mcg PO DAILY [facility] Last Admin: 08/22/21 08:11 Dose: 50 mcg Documented by: Home Medications Medication Instructions Recorded Confirmed Last Taken Type budesonide 180 mcg/actuation 1 inh INHALATION BID 04/26/20 08/19/21 Unknown History breath activated powder inhaler fluticasone propionate 220 1 puff INHALATION BID 04/26/20 08/19/21 Unknown History mcg/actuation HFA aerosol inhaler (Flovent HFA) Physical Exam Vital Signs: Vital Signs: Last Vital Signs Temp 97.8 F 08/22/21 07:39 Pulse 62 08/22/21 09:12 Resp 18 08/22/21 07:39 BP 108/53 L 08/22/21 09:12 Pulse Ox 94 08/22/21 09:12 BMI result Body Mass Index 31.6 Const: General: cooperative Eyes: General: appearance normal, both eyes and all related structures Resp: Effort & Inspection: normal respiratory effort Cardio: Rate: regular rate Rhythm: regular rhythm GI: Palpation (GI): Soft to palpation and nontender Skin: General skin exam: no rashes or lesions noted Extrem: Other: LLE erythema including toes particularly second toe and from garcia down blistered area some exudate Results Labs CBC & Chem 7: 08/22/21 05:35 08/22/21 05:35 Labs: Short CBC 08/22/21 Range/Units 05:35 WBC 11.1 H (4.8-10.8) X10*3/uL Hgb 13.8 L (14.0-18.0) g/dl Hct 43.4 (42.0-52.0) % Plt Count 241 (160-400) X10*3/uL BMP 08/22/21 05:35 Sodium 136 Potassium 4.5 Chloride 99 Carbon Dioxide 29 BUN 26 H Creatinine 1.12 Calcium 8.9 Liver Function 08/22/21 Range/Units 05:35 Total Bilirubin 0.6 (0.0-1.0) mg/dL AST 14 (5-37) U/L ALT 13 (0-40) U/L Alkaline Phosphatase 67 (39-117) U/L Albumin 3.3 L (3.5-5.0) g/dL Microbiology Microbiology Results: Microbiology 08/19/21 12:25 Blood - Venous Blood Culture - Preliminary Prelim: GPC Gram Stain only 08/19/21 12:32 Blood - Venous Blood Culture - Preliminary No growth after 48 hours. Assessment and Plan (1) Cellulitis: Status: Acute (2) Bacteremia: Status: Acute Bacteremia likely related to cellulitis left leg in setting of venous stasis changes He has redness in area Bacteremia may be staph including MRSA or strep Plan Would continue Vancomycin cover above. Duration antibiotics depends on organism,may even be coagulase negative contaminant Local Wound Care followup Check echo if strep or staph aureus
[2021-08-22] MEDS: Insulin Lispro 100 UNIT/ML 3 ML VIAL SUBCUT ×2 (11:50→20:26)
[2021-08-22] MEDS: Enoxaparin Sodium 40 MG/0.4 ML SYRINGE SUBCUT (13:38)
[2021-08-22 14:45] LABS: Vancomycin Trough 11.4 mcg/mL (10.0-20.0)
--- NOTE | 2021-08-22 15:20 | MHC.CM.PN ---
NURSE PYROTECHNIC ASSEMBLER NOTE ELECTRONIC MEDICAL RECORD REVIEWED ALONG WITH CASE DISCUSSED ON MULTIPLE DISCIPLINARY ROUNDS , SEEN BY ID PHYSICIAN TODAY FOR DOCUMENTED (CELLULITE OF THE LEG BACTEREMIA VENOSUS STASIS , SHE RECOMMENDED CONTINUE WITH IV VANCOMYCIN RECOMMENDED TO REFERRAL TO OUTPT WOUND CLINIC AND ECHO HOSPITALIST ALSO ORDERING FOR PHYSICAL THERAPY EVALUATION (THIS WAS ATTEMPTED BUT PATIENT FELT NAUSE AND ASKED FOR THEM TO COME BACK TOMORROW) PYROTECHNIC ASSEMBLER TO [facility]ERT [facility] T0 FOLLOW DISCHARGE PLAN DEPENDENT ON PT. RECOMMENDATION SON INITIALLY WOULD LIKE [facility]NA FOR NRUSING AND HOME PT ) [facility] LIVING WITH HIS SON/HCP WHOM IS NOW HIS ADULT DYE BECK REEL OPERATOR AND PROVIDES ALL THE CARE AT HOME FOR HIM ACTIVE WITH [facility] (RN. PYROTECHNIC ASSEMBLER WHO VISITS MONTHLY
--- NOTE | 2021-08-22 15:56 | MHC.CM.PN ---
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 met with patient after seeing the recomendation for short term rehab by them , i discussed short twrm rehab with him and he strongly disagreed he wants to go home i even tried to reviewe some facilityies and he again refused , he will accept vna for nrusing and home pt [facility] (requested from them if they can still accept and start date anticipate d/c tomorrow ) alternat vna zak mcguire , danilo rajan and [facility] [place] if the [facility] can not accomadate) pcp dr choi
--- NOTE | 2021-08-22 16:07 | MHC.CM.PN ---
nurse case managers note electronic emedical record reviewed , met with patient speakes qatari and reads bulgarian , he lives with his at home , he will assist him when needed , he ambulates with a walker AND HAS A WHEELCHAIR, FOR WHEN HE GOES TO MEDICAL APPOINTMENTS OR OUTSIDE . HE HAD A SCHEDULED APPOINTMENT FOR PROSTHETIC FITTING TODAY AND ENCOURAGED HIM TO CALL AND CANCEL HE IS IN THE [facility]OSPIT[facility] , HE REPORTED HE HAS HEALTH CARE PROXY AND 3 COVID VACCINATION WITH [facility] , CONFIRMED PCP RAMOS ALVAREZ HE REPORTED HIS PCP IS GIVING HIM HIS MEDICATIONS FOR DEPRESSION BUT HE NOW HAS AND NEW PSYCHIATRIST , THERAPIST BUT HAS NOT SEEN THEM YET OBSERVATION PAPERWORK EXPLAINED AND GIVEN TO HIM DISCHARGE PLAN HOME WITH RESUMPTION OF HIS VNA NURSING AND HOME PT , COULD NOT RECAKLL THE VNA NAME (WILL FURTHER INVESTIGATE THIS LIVES WITH HIS SELF RESUMPTION OF HIS HOME SERVICES PCP DR ZACK CONNELLY
[2021-08-22] MEDS: vancomycin HCL 1,000 MG, vancomycin HCL 750 MG in 0.9 % Sodium Chloride 500 ML 267.5 MG IV (16:08)
[2021-08-22 17:08] LABS: Glucose, Whole Blood 69 mg/dL (60-115)
[2021-08-22 18:13] LABS: Glucose, Whole Blood 148 mg/dL (60-115)
[2021-08-22 20:08] LABS: Glucose, Whole Blood 189 mg/dL (60-115)
[2021-08-23] MEDS: 0.9 % Sodium Chloride Flush 3 ML SYRINGE IVFLUSH ×3 (00:13→16:27)
[2021-08-23 03:29] VITALS: BP 137/56; PULSE 62; RESP 18; TEMP 36.3; O2SAT 94
[2021-08-23 06:03] LABS: MANUAL DIFF FLAG NO
[2021-08-23 06:07] LABS: Basophils Percent Auto 0.2 % (0-2); Eosinophils Absolute Auto 0.2 X10*3/uL (0.0-0.4); Eosinophils Percent Auto 1.8 % (0-4); Hemoglobin 13.8 g/dl (14.0-18.0); Imm Gran Abs Auto 0.04 X10*3/uL (0.00-0.03); Imm Gran Pct Auto 0.5 % (0.0-0.4); Lymphocytes Absolute Auto 2.2 X10*3/uL (1.2-4.9); Lymphocytes Percent Auto 25.2 % (20-40); Mean Corpuscular HGB Conc 32.1 g/dl (31.0-36.0); Mean Corpuscular Hemoglobin 31.6 pg (27.0-33.0); Mean Corpuscular Volume 98.4 fL (80.0-98.0); Mean Platelet Volume 10.1 fL (9.4-12.4); Monocytes Absolute Auto 0.9 X10*3/uL (0.1-1.2); Monocytes Percent Auto 10.1 % (2-11); Neutrophils Absolute Auto 5.4 x10*3/uL (2.0-8.3); Neutrophils Percent Auto 62.2 % (45-73); Platelet Count 231 X10*3/uL (160-400); Red Blood Count 4.37 X10*6/uL (4.60-5.80); Red Cell Distribution Width 12.5 % (11.0-16.0); White Blood Count 8.7 X10*3/uL (4.8-10.8)
[2021-08-23 06:28] LABS: Alanine Aminotransferase 17 U/L (0-40); Albumin Level 3.3 g/dL (3.5-5.0); Alkaline Phosphatase 69 U/L (39-117); Anion Gap 13 (12-20); Aspartate Amino Transferase 16 U/L (5-37); Bilirubin Total 0.6 mg/dL (0.0-1.0); Blood Urea Nitrogen 27 mg/dL (9-16); Calcium 9.1 mg/dL (8.4-10.2); Carbon Dioxide 28 mmol/L (22-29); Chloride 100 mmol/L (96-108); Creatinine Clr Calc Pharmacy 89.5; Estimated Glomerular Filt Rate > 60; Glucose Fasting 89 mg/dL (60-99); Potassium 4.4 mmol/L (3.3-5.1); Sodium 137 mmol/L (135-145); Total Protein 5.8 g/dL (6.5-8.0)
[2021-08-23 07:20] VITALS: BP 139/60; PULSE 81; RESP 18; TEMP 36.9; O2SAT 91
--- NOTE | 2021-08-23 07:40 | HE.PHANOTE ---
RE: Vanco Patient SCR is 0.97. Continue 1750mg q24h, next trough is 08/24 @1300 Thanks Kev
[2021-08-23] MEDS: Pravastatin Sodium 40 MG TABLET PO (07:43)
[2021-08-23] MEDS: Aspirin Enteric Coated 81 MG TABLET.DR PO (07:43)
[2021-08-23] MEDS: lisinopriL 20 MG TABLET PO (07:44)
[2021-08-23] MEDS: oxyCODONE HCl Immed Release 5 MG TABLET PO ×3 (07:44→22:44)
[2021-08-23] MEDS: metFORMIN HCl 500 MG TABLET PO ×2 (07:44→20:34)
[2021-08-23] MEDS: glipiZIDE 10 MG TABLET PO ×2 (07:45→20:34)
[2021-08-23] MEDS: Furosemide 20 MG/2 ML VIAL IVPUSH ×2 (07:45→16:27)
[2021-08-23] MEDS: Cholecalciferol (Vitamin D3) 25 MCG TABLET 50 MCG PO (07:45)
[2021-08-23 07:48] LABS: Glucose, Whole Blood 118 mg/dL (60-115)
[2021-08-23 09:25] VITALS: BP 139/60; PULSE 81; O2SAT 91
--- NOTE | 2021-08-23 09:45 | P.PNIM_ITS ---
Subjective Subjective Date of Service: 08/23/21 Interval History: No acute issues overnight. Remains afebrile. Unsteady on his feet Review of Systems Denies chest pain Denies shortness of breath Denies nausea vomiting diarrhea Denies fever chills Physical Exam Vital Signs: Vital Signs: Last Vital Signs Temp 98.5 F 08/23/21 07:20 Pulse 81 08/23/21 09:25 Resp 18 08/23/21 07:20 BP 139/60 08/23/21 09:25 Pulse Ox 91 L 08/23/21 09:25 BMI result Body Mass Index 31.6 Const: Other: Awake alert oriented x3 no acute distress Resp: Other: Clear to auscultation bilaterally no rales rhonchi or wheezes Cardio: Other: No S4; positive S1-S2; no S3 murmurs rubs or gallops GI: Other: Soft nontender nondistended with normoactive bowel sounds Extrem: Other: Weeping edema bilaterally; erythema mid tibial region distally with open ulceration; essentially no change since admission Objective Data Active Medications Albuterol Sulfate (Albuterol Sulfate 90 Mcg 8 Gm Inhaler) 2 puff INHALE RQ6H PRN PRN Reason: for wheezing Albuterol/Ipratropium (Albuterol/Iprat 2.5/0.5mg 3 Ml Ampul.Neb) 3 ml INHALE RQ6H PRN PRN Reason: wheezing Aspirin (Aspirin Enteric Coated 81 Mg Tablet.Dr) 81 mg PO DAILY [facility] Last Admin: 08/23/21 07:43 Dose: 81 mg Documented by: MARLON Dextrose (Dextrose 50 % 25 Gm/50 Ml Vial) 25 gm IVPUSH Q15M PRN; Protocol PRN Reason: per Hypoglycemia Standing Ord. Enoxaparin Sodium (Enoxaparin Sodium 40 Mg/0.4 Ml Syringe) 40 mg SUBCUT Q24H [facility] Last Admin: 08/22/21 13:38 Dose: 40 mg Documented by: DABLea Furosemide (Furosemide 20 Mg/2 Ml Vial) 20 mg IVPUSH BID@0830,1630 [facility]; Protocol Last Admin: 08/23/21 07:45 Dose: 20 mg Documented by: MARLON Glipizide (Glipizide 10 Mg Tablet) 10 mg PO BID [facility] Last Admin: 08/23/21 07:45 Dose: 10 mg Documented by: MARLON Glucose (Glucose Gel 15 Gm Gel..Gram.) 15 gm PO Q15M PRN; Protocol PRN Reason: per Hypoglycemia Standing Ord. Vancomycin HCl 1,000 mg/Vancomycin HCl 750 mg/ Sodium Chloride 535 mls @ 267.5 mls/hr IV Q24H [facility] Last Infusion: 08/22/21 19:20 Dose: 0 mls/hr Documented by: MANPREET Insulin Human Lispro (Insulin Lispro 100 Unit/Ml 3 Ml Vial) 0 unit SUBCUT QIDACHS [facility]; Protocol Last Admin: 08/23/21 07:43 Dose: Not Given Documented by: MARLON Non-Admin Reason: No Insulin Coverage Lisinopril (Lisinopril 20 Mg Tablet) 20 mg PO DAILY [facility]; Protocol Last Admin: 08/23/21 07:44 Dose: 20 mg Documented by: MARLON Metformin HCl (Metformin Hcl 500 Mg Tablet) 500 mg PO BID [facility] Last Admin: 08/23/21 07:44 Dose: 500 mg Documented by: MARLON Oxycodone HCl (Oxycodone Hcl Immed Release 5 Mg Tablet) 5 mg PO Q4H PRN PRN Reason: Pain, Moderate (Pain Scale 4-6 Last Admin: 08/23/21 07:44 Dose: 5 mg Documented by: MAROLN Pharmacy Consult (Consult Rx Perform Med Rec) 1 each MISCELLANE ONCE PRN PRN Reason: Consult order Pharmacy Consult (Consult Rx Vancomycin Dosing) 1 each MISCELLANE DAILY PRN PRN Reason: Consult order Pravastatin Sodium (Pravastatin Sodium 40 Mg Tablet) 40 mg PO DAILY [facility] Last Admin: 08/23/21 07:43 Dose: 40 mg Documented by: MARLON Sodium Chloride (0.9 % Sodium Chloride Flush 3 Ml Syringe) 3 ml IVFLUSH QSHIFT [facility] Last Admin: 08/23/21 07:45 Dose: 3 ml Documented by: MARLON Vitamin D (Cholecalciferol (Vitamin D3) 25 Mcg Tablet) 50 mcg PO DAILY [facility] Last Admin: 08/23/21 07:45 Dose: 50 mcg Documented by: MARLON Labs CBC & Chem 7: 08/23/21 05:39 08/23/21 05:39 Labs: Laboratory Results - last 24 hr 08/22/21 08/22/2108/22/22 11:14 13:29 17:03 MCV MCH MCHC RDW Plt Count MPV Immature Gran % (Auto) Neut % (Auto) Lymph % (Auto) [place] % (Auto) Eos % (Auto) Baso % (Auto) Lymph # (Auto) [place] # (Auto) Eos # (Auto) Baso # (Auto) Abs Immat Gran (auto) Absolute Neuts (auto) Absolute Nucleated RBC Nucleated RBC % (auto) Anion Gap Estim Creat Clear Calc Estimated GFR POC Glucose 188 H 69 Fasting Glucose Calcium Total Bilirubin AST ALT Alkaline Phosphatase Total Protein Albumin Vancomycin Trough 11.4 08/22/21 08/22/21 08/23/21 18:08 19:26 05:39 MCV 98.4 H MCH 31.6 MCHC 32.1 RDW 12.5 Plt Count 231 MPV 10.1 Immature Gran % (Auto) 0.5 H Neut % (Auto) 62.2 Lymph % (Auto) 25.2 [place] % (Auto) 10.1 Eos % (Auto) 1.8 Baso % (Auto) 0.2 Lymph # (Auto) 2.2 [place] # (Auto) 0.9 Eos # (Auto) 0.2 Baso # (Auto) 0.0 Abs Immat Gran (auto) 0.04 H Absolute Neuts (auto) 5.4 Absolute Nucleated RBC 0.000 Nucleated RBC % (auto) 0.0 Anion Gap Estim Creat Clear Calc Estimated GFR POC Glucose 148 H 189 H Fasting Glucose Calcium Total Bilirubin AST ALT Alkaline Phosphatase Total Protein Albumin Vancomycin Trough 08/23/21 08/23/21 05:39 07:43 MCV MCH MCHC RDW Plt Count MPV Immature Gran % (Auto) Neut % (Auto) Lymph % (Auto) [place] % (Auto) Eos % (Auto) Baso % (Auto) Lymph # (Auto) [place] # (Auto) Eos # (Auto) Baso # (Auto) Abs Immat Gran (auto) Absolute Neuts (auto) Absolute Nucleated RBC Nucleated RBC % (auto) Anion Gap 13 Estim Creat Clear Calc 89.5 Estimated GFR > 60 POC Glucose 118 H Fasting Glucose 89 Calcium 9.1 Total Bilirubin 0.6 AST 16 ALT 17 Alkaline Phosphatase 69 Total Protein 5.8 L Albumin 3.3 L Vancomycin Trough Microbiology Microbiology Results: Microbiology 08/19/21 12:25 Blood Culture - Final Blood - Venous Coag negative Staphylococcus Assessment and Plan (1) Cellulitis: Status: Acute (2) Type 2 diabetes mellitus with diabetic neuropathy, unspecified: Status: Acute (3) HTN (hypertension): Status: Acute Plan 76-year-old male with a history of coronary artery disease, hypertension and type 2 diabetes not requiring insulin presents with approximately 1 week of left lower extremity redness and swelling. He states this started as a blister began to weep and then his legs became more read as days went by along with being more painful. He states denies fever and chills. States he ?furniture walks at home?. Minimal ambulation electric wheelchair. Essentially no change with the 1st 24 hours of antibiotics 1. LLE Cellulitis -IV Vanco/Zosyn...BC - (coag- staph) Switch to Doxycyline upon D/C -IV lasix . . . toleratingdiuresis -follow renals/divalents 2. DMII -continue outpatient therapies -Sliding scale insulin to cover -adjust as indicted 3.HTN -acceptable control on outpatient therapies -continue same...adjust as indicated 4.Hyperlipidemia -continue statin Full Code Lovenox Requires ongoing inpatient hospitalization likely for 1 midnights going foward secondary to minimal response to IV ABTX Quality Stroke Does the patient have a stroke diagnosis?: No VTE Prior VTE?: No VTE Risk Level:: Medical - moderate - high VTE Device Contraindication: Patient Refused VTE Drug Contraindication: N/A - Med Ordered
[2021-08-23 11:41] LABS: Glucose, Whole Blood 129 mg/dL (60-115)
[2021-08-23 11:46] VITALS: BP 135/51; PULSE 71; RESP 18; TEMP 36.8; O2SAT 92
[2021-08-23] MEDS: Enoxaparin Sodium 40 MG/0.4 ML SYRINGE SUBCUT (13:08)
[2021-08-23] MEDS: vancomycin HCL 1,000 MG, vancomycin HCL 750 MG in 0.9 % Sodium Chloride 500 ML 267.5 MG IV (14:48)
--- NOTE | 2021-08-23 15:18 | MHC.CM.PN ---
EMR REVIEWED, PER HOSPITALIST PT WILL REMAIN INPT HE HAS HAD MINIMAL IMPROVEMENT W/IV ABX, CM MET W/PT WHO CONT'S TO DECLINE STR AND PREFERS HOME SERVICES. PT PREFERS [facility] HOWEVER IT IS NOT LIKELY THEY WILL BE ABLE TO SEE PT UNTIL EARLY NEXT WEEK, CM WILL EXPAND REFERRAL.
[2021-08-23 15:22] VITALS: BP 104/55; PULSE 72; RESP 18; TEMP 36.8; O2SAT 91
[2021-08-23 16:06] LABS: Glucose, Whole Blood 70 mg/dL (60-115)
[2021-08-23 19:18] VITALS: BP 131/45; PULSE 66; RESP 18; TEMP 36.9; O2SAT 95
[2021-08-23 20:03] LABS: Glucose, Whole Blood 170 mg/dL (60-115)
[2021-08-23] MEDS: Insulin Lispro 100 UNIT/ML 3 ML VIAL SUBCUT (20:34)
[2021-08-24] VITALS (8 sets, daily range): BP systolic 106–162; BP diastolic 43–71; PULSE 62–89; RESP 16–20; TEMP 36.2–37.1; O2SAT 93–100
[2021-08-24] MEDS: 0.9 % Sodium Chloride Flush 3 ML SYRINGE IVFLUSH ×3 (00:50→16:05)
[2021-08-24 05:49] LABS: MANUAL DIFF FLAG NO
[2021-08-24 05:56] LABS: Basophils Percent Auto 0.2 % (0-2); Eosinophils Absolute Auto 0.2 X10*3/uL (0.0-0.4); Eosinophils Percent Auto 1.7 % (0-4); Hematocrit 42.3 % (42.0-52.0); Hemoglobin 13.4 g/dl (14.0-18.0); Imm Gran Abs Auto 0.04 X10*3/uL (0.00-0.03); Imm Gran Pct Auto 0.4 % (0.0-0.4); Lymphocytes Absolute Auto 2.4 X10*3/uL (1.2-4.9); Mean Corpuscular HGB Conc 31.7 g/dl (31.0-36.0); Mean Corpuscular Hemoglobin 31.2 pg (27.0-33.0); Mean Corpuscular Volume 98.6 fL (80.0-98.0); Mean Platelet Volume 9.9 fL (9.4-12.4); Monocytes Absolute Auto 0.9 X10*3/uL (0.1-1.2); Monocytes Percent Auto 9.5 % (2-11); Neutrophils Absolute Auto 5.7 x10*3/uL (2.0-8.3); Neutrophils Percent Auto 62.2 % (45-73); Platelet Count 219 X10*3/uL (160-400); Red Blood Count 4.29 X10*6/uL (4.60-5.80); Red Cell Distribution Width 12.6 % (11.0-16.0); White Blood Count 9.2 X10*3/uL (4.8-10.8)
[2021-08-24 06:17] LABS: Alanine Aminotransferase 21 U/L (0-40); Albumin Level 3.2 g/dL (3.5-5.0); Alkaline Phosphatase 67 U/L (39-117); Anion Gap 13 (12-20); Aspartate Amino Transferase 17 U/L (5-37); Bilirubin Total 0.6 mg/dL (0.0-1.0); Blood Urea Nitrogen 35 mg/dL (9-16); Carbon Dioxide 28 mmol/L (22-29); Chloride 100 mmol/L (96-108); Creatinine Clr Calc Pharmacy 81.9; Estimated Glomerular Filt Rate > 60; Glucose Fasting 75 mg/dL (60-99); Potassium 4.5 mmol/L (3.3-5.1); Sodium 136 mmol/L (135-145); Total Protein 5.6 g/dL (6.5-8.0)
[2021-08-24 07:55] LABS: Glucose, Whole Blood 79 mg/dL (60-115)
[2021-08-24 08:07] LABS: C Reactive Protein 1.02 mg/dL (< or = 0.50)
[2021-08-24] MEDS: Cholecalciferol (Vitamin D3) 25 MCG TABLET 50 MCG PO (08:30)
[2021-08-24] MEDS: Pravastatin Sodium 40 MG TABLET PO (08:31)
[2021-08-24] MEDS: Aspirin Enteric Coated 81 MG TABLET.DR PO (08:31)
[2021-08-24] MEDS: lisinopriL 20 MG TABLET PO (08:31)
[2021-08-24] MEDS: glipiZIDE 10 MG TABLET PO ×2 (08:32→16:05)
[2021-08-24] MEDS: metFORMIN HCl 500 MG TABLET PO ×2 (08:32→16:05)
[2021-08-24] MEDS: oxyCODONE HCl Immed Release 5 MG TABLET PO ×3 (09:15→20:29)
--- NOTE | 2021-08-24 09:38 | PC.NURSE ---
Wound assessment completed. Patient has venous ulcers on left lower leg and foot. Wounds cleansed with wound cleanser then Santyl applied covered with gauze and roll gauze. No other skin issues noted at this time.
[2021-08-24 11:16] LABS: Glucose, Whole Blood 119 mg/dL (60-115)
--- NOTE | 2021-08-24 11:17 | HO.PM.IMPN ---
Subjective Subjective Date of Service: 08/24/21 Interval History: L garcia wound still quite painful. Continues to have weeping and significant surrounding erythema and edema. No fever/chills. Refuses STR placement despite recent fall and need for wound care Review of Systems Review of Systems: Yes all other systems are reviewed and are negative Physical Exam Vital Signs: Vital Signs: Last Vital Signs Temp 97.2 F 08/24/21 11:15 Pulse 80 08/24/21 11:15 Resp 20 08/24/21 11:15 BP 114/71 08/24/21 11:15 Pulse Ox 98 08/24/21 11:15 BMI result Body Mass Index 31.6 Gen: in no acute distress HEENT: sclera anicteric, moist mucus membranes Neck: supple Lungs: clear to auscultation bilaterally Heart: regular rate and rhythm, no murmurs Abd: soft, non-tender, non-distended Ext: L garcia with desquamation + necrotic skin, marked erythema and edema surrounding Skin: warm/well-perfused Neuro: alert and oriented x3, no focal findings Psych: appropriate affect Objective Data Active Medications Albuterol Sulfate (Albuterol Sulfate 90 Mcg 8 Gm Inhaler) 2 puff INHALE RQ6H PRN PRN Reason: for wheezing Albuterol/Ipratropium (Albuterol/Iprat 2.5/0.5mg 3 Ml Ampul.Neb) 3 ml INHALE RQ6H PRN PRN Reason: wheezing Aspirin (Aspirin Enteric Coated 81 Mg Tablet.) 81 mg PO DAILY [facility] Last Admin: 08/24/21 08:31 Dose: 81 mg Documented by: MARLON Collagenase (Collagenase Clostridium Hist. 30 Gm Tube) 1 appl TOPICAL DAILY [facility]; Protocol Dextrose (Dextrose 50 % 25 Gm/50 Ml Vial) 25 gm IVPUSH Q15M PRN; Protocol PRN Reason: per Hypoglycemia Standing Ord. Enoxaparin Sodium (Enoxaparin Sodium 40 Mg/0.4 Ml Syringe) 40 mg SUBCUT Q24H [facility] Last Admin: 08/23/21 13:08 Dose: 40 mg Documented by: MARLON Glipizide (Glipizide 10 Mg Tablet) 10 mg PO BIDWM [facility] Last Admin: 08/24/21 08:32 Dose: 10 mg Documented by: MARLON Glucose (Glucose Gel 15 Gm Gel..Gram.) 15 gm PO Q15M PRN; Protocol PRN Reason: per Hypoglycemia Standing Ord. Vancomycin HCl 1,000 mg/Vancomycin HCl 750 mg/ Sodium Chloride 535 mls @ 267.5 mls/hr IV Q24H [facility] Last Infusion: 08/23/21 17:28 Dose: 0 mls/hr Documented by: HOLLAND Insulin Human Lispro (Insulin Lispro 100 Unit/Ml 3 Ml Vial) 0 unit SUBCUT QIDACHS [facility]; Protocol Last Admin: 08/24/21 11:16 Dose: Not Given Documented by: MARLON Non-Admin Reason: No Insulin Coverage Lisinopril (Lisinopril 20 Mg Tablet) 20 mg PO DAILY [facility]; Protocol Last Admin: 08/24/21 08:31 Dose: 20 mg Documented by: MARLON Metformin HCl (Metformin Hcl 500 Mg Tablet) 500 mg PO BIDWM [facility] Last Admin: 08/24/21 08:32 Dose: 500 mg Documented by: MARLON Oxycodone HCl (Oxycodone Hcl Immed Release 5 Mg Tablet) 5 mg PO Q4H PRN PRN Reason: Pain, Moderate (Pain Scale 4-6 Last Admin: 08/24/21 09:15 Dose: 5 mg Documented by: MARLON Pharmacy Consult (Consult Rx Perform Med Rec) 1 each MISCELLANE ONCE PRN PRN Reason: Consult order Pharmacy Consult (Consult Rx Vancomycin Dosing) 1 each MISCELLANE DAILY PRN PRN Reason: Consult order Pravastatin Sodium (Pravastatin Sodium 40 Mg Tablet) 40 mg PO DAILY [facility] Last Admin: 08/24/21 08:31 Dose: 40 mg Documented by: MARLON Sodium Chloride (0.9 % Sodium Chloride Flush 3 Ml Syringe) 3 ml IVFLUSH QSHIFT [facility] Last Admin: 08/24/21 08:32 Dose: 3 ml Documented by: MARLON Vitamin D (Cholecalciferol (Vitamin D3) 25 Mcg Tablet) 50 mcg PO DAILY [facility] Last Admin: 08/24/21 08:30 Dose: 50 mcg Documented by: MARLON Labs CBC & Chem 7: 08/24/21 05:34 08/24/21 05:34 Labs: Laboratory Results - last 24 hr 08/23/21 08/23/21 08/23/21 11:33 15:26 19:20 MCV MCH MCHC RDW Plt Count MPV Immature Gran % (Auto) Neut % (Auto) Lymph % (Auto) [place] % (Auto) Eos % (Auto) Baso % (Auto) Lymph # (Auto) [place] # (Auto) Eos # (Auto) Baso # (Auto) Abs Immat Gran (auto) Absolute Neuts (auto) Absolute Nucleated RBC Nucleated RBC % (auto) Anion Gap Estim Creat Clear Calc Estimated GFR POC Glucose 129 H 70 170 H Fasting Glucose Calcium Total Bilirubin AST ALT Alkaline Phosphatase C-Reactive Protein Total Protein Albumin 08/24/21 08/24/21 08/24/21 05:34 05:34 07:52 MCV 98.6 H MCH 31.2 MCHC 31.7 RDW 12.6 Plt Count 219 MPV 9.9 Immature Gran % (Auto) 0.4 Neut % (Auto) 62.2 Lymph % (Auto) 26.0 [place] % (Auto) 9.5 Eos % (Auto) 1.7 Baso % (Auto) 0.2 Lymph # (Auto) 2.4 [place] # (Auto) 0.9 Eos # (Auto) 0.2 Baso # (Auto) 0.0 Abs Immat Gran (auto) 0.04 H Absolute Neuts (auto) 5.7 Absolute Nucleated RBC 0.000 Nucleated RBC % (auto) 0.0 Anion Gap 13 Estim Creat Clear Calc 81.9 Estimated GFR > 60 POC Glucose 79 Fasting Glucose 75 Calcium 9.0 Total Bilirubin 0.6 AST 17 ALT 21 Alkaline Phosphatase 67 C-Reactive Protein 1.02 H Total Protein 5.6 L Albumin 3.2 L 08/24/21 11:12 MCV MCH MCHC RDW Plt Count MPV Immature Gran % (Auto) Neut % (Auto) Lymph % (Auto) [place] % (Auto) Eos % (Auto) Baso % (Auto) Lymph # (Auto) [place] # (Auto) Eos # (Auto) Baso # (Auto) Abs Immat Gran (auto) Absolute Neuts (auto) Absolute Nucleated RBC Nucleated RBC % (auto) Anion Gap Estim Creat Clear Calc Estimated GFR POC Glucose 119 H Fasting Glucose Calcium Total Bilirubin AST ALT Alkaline Phosphatase C-Reactive Protein Total Protein Albumin Microbiology Microbiology Results: Microbiology 08/19/21 12:25 Blood Culture - Final Blood - Venous Coag negative Staphylococcus Assessment and Plan (1) Cellulitis: Status: Acute (2) Type 2 diabetes mellitus with diabetic neuropathy, unspecified: Status: Acute (3) HTN (hypertension): Status: Acute Plan hospital d#6 76yo M with CAD, HTN, DM2 presenting with worsening LLE redness/swelling at site of weeping blister at site of skin trauma after fall # LLE cellulitis - IV vancomycin d#6. Not bacteremic - d/c IV furosemide - wound care with Santyl # HTN - lisinopril # HLD - pravastatin # DM2 - correction-dose lispro, MTF, GPZ # VTE ppx - LMWH # dispo - STR recommended; pt refuses, saying he will go home with VNA and he has an electric wheelchair In my professional opinion, patient requires continued hospitalization for continued IV antibiotic administration given minimal improvement in infection. Quality Stroke Does the patient have a stroke diagnosis?: No VTE Prior VTE?: No VTE Risk Level:: Medical - moderate - high VTE Device Contraindication: Patient Refused VTE Drug Contraindication: N/A - Med Ordered
[2021-08-24] MEDS: Enoxaparin Sodium 40 MG/0.4 ML SYRINGE SUBCUT (14:40)
[2021-08-24 15:35] LABS: Vancomycin Trough 13.4 mcg/mL (10.0-20.0)
[2021-08-24 15:47] LABS: Glucose, Whole Blood 63 mg/dL (60-115)
--- NOTE | 2021-08-24 15:52 | HE.PHANOTE ---
Vancomycin Dosing Addendum pts trough 13.4. Continue current vancomycin regimen of 1750 mg q24h (predicted AUC 488). Next trough 08/26/21 @1300.
[2021-08-24] MEDS: vancomycin HCL 1,000 MG, vancomycin HCL 750 MG in 0.9 % Sodium Chloride 500 ML 267.5 MG IV (16:04)
[2021-08-24 20:10] LABS: Glucose, Whole Blood 159 mg/dL (60-115)
[2021-08-24] MEDS: Insulin Lispro 100 UNIT/ML 3 ML VIAL SUBCUT (20:27)
[2021-08-25] VITALS (7 sets, daily range): BP systolic 108–125; BP diastolic 53–59; PULSE 62–67; RESP 17–20; TEMP 36.3–36.9; O2SAT 92–97
[2021-08-25] MEDS: 0.9 % Sodium Chloride Flush 3 ML SYRINGE IVFLUSH ×3 (00:20→19:30)
[2021-08-25 06:31] LABS: MANUAL DIFF FLAG NO
[2021-08-25 06:56] LABS: Alanine Aminotransferase 24 U/L (0-40); Albumin Level 3.2 g/dL (3.5-5.0); Alkaline Phosphatase 71 U/L (39-117); Anion Gap 11 (12-20); Aspartate Amino Transferase 16 U/L (5-37); Bilirubin Total 0.6 mg/dL (0.0-1.0); Blood Urea Nitrogen 29 mg/dL (9-16); Calcium 8.8 mg/dL (8.4-10.2); Carbon Dioxide 27 mmol/L (22-29); Chloride 103 mmol/L (96-108); Creatinine Clr Calc Pharmacy 94.3; Estimated Glomerular Filt Rate > 60; Glucose Fasting 106 mg/dL (60-99); Potassium 4.7 mmol/L (3.3-5.1); Sodium 136 mmol/L (135-145); Total Protein 5.7 g/dL (6.5-8.0)
[2021-08-25 07:05] LABS: Basophils Percent Auto 0.3 % (0-2); Eosinophils Absolute Auto 0.1 X10*3/uL (0.0-0.4); Eosinophils Percent Auto 1.6 % (0-4); Hematocrit 41.6 % (42.0-52.0); Hemoglobin 13.2 g/dl (14.0-18.0); Imm Gran Abs Auto 0.02 X10*3/uL (0.00-0.03); Imm Gran Pct Auto 0.2 % (0.0-0.4); Lymphocytes Absolute Auto 2.3 X10*3/uL (1.2-4.9); Lymphocytes Percent Auto 26.2 % (20-40); Mean Corpuscular HGB Conc 31.7 g/dl (31.0-36.0); Mean Corpuscular Hemoglobin 31.4 pg (27.0-33.0); Mean Corpuscular Volume 98.8 fL (80.0-98.0); Mean Platelet Volume 10.3 fL (9.4-12.4); Monocytes Absolute Auto 0.8 X10*3/uL (0.1-1.2); Monocytes Percent Auto 9.4 % (2-11); Neutrophils Absolute Auto 5.3 x10*3/uL (2.0-8.3); Neutrophils Percent Auto 62.3 % (45-73); Platelet Count 221 X10*3/uL (160-400); Red Blood Count 4.21 X10*6/uL (4.60-5.80); Red Cell Distribution Width 12.4 % (11.0-16.0); White Blood Count 8.6 X10*3/uL (4.8-10.8)
[2021-08-25 07:36] LABS: Glucose, Whole Blood 107 mg/dL (60-115)
[2021-08-25] MEDS: Aspirin Enteric Coated 81 MG TABLET.DR PO (08:43)
[2021-08-25] MEDS: oxyCODONE HCl Immed Release 5 MG TABLET PO ×3 (08:43→19:29)
[2021-08-25] MEDS: metFORMIN HCl 500 MG TABLET PO ×2 (08:43→16:55)
[2021-08-25] MEDS: lisinopriL 20 MG TABLET PO (08:43)
[2021-08-25] MEDS: glipiZIDE 10 MG TABLET PO ×2 (08:43→16:55)
[2021-08-25] MEDS: Pravastatin Sodium 40 MG TABLET PO (08:43)
[2021-08-25] MEDS: Cholecalciferol (Vitamin D3) 25 MCG TABLET 50 MCG PO (08:43)
[2021-08-25] MEDS: Collagenase Clostridium Hist. 30 GM TUBE 1 APPL TOPICAL (08:49)
--- NOTE | 2021-08-25 09:27 | MHC.CM.PN ---
Addendum entered by Talia Mcmahon RN 08/25/21 12:33: PT'S D/C NOW ON HOLD D/T WORSENING WOUND, PLAN FOR ID TO SEE PT. Original Note: PT MEDICALLY CLEARED FOR D/C, PT CONT'S TO DECLINE STR AND WILL D/C HOME W/[facility] FOR SN AND HOME PT, CM TO SET UP TRANSPORT FOR PT.
--- NOTE | 2021-08-25 10:29 | HE.PHANOTE ---
Patients cr decreased, predicted AUC is 428, next trough 08/26
[2021-08-25 11:14] LABS: Glucose, Whole Blood 106 mg/dL (60-115)
--- NOTE | 2021-08-25 13:09 | HO.PM.IMPN ---
Subjective Subjective Date of Service: 08/25/21 Interval History: Pain L garcia No fever Review of Systems Review of Systems: Yes all other systems are reviewed and are negative Physical Exam Vital Signs: Vital Signs: Last Vital Signs Temp 98.1 F 08/25/21 11:09 Pulse 67 08/25/21 11:09 Resp 18 08/25/21 11:09 BP 108/53 L 08/25/21 11:09 Pulse Ox 94 08/25/21 11:09 BMI result Body Mass Index 31.6 Gen: in no acute distress HEENT: sclera anicteric, moist mucus membranes Neck: supple Lungs: clear to auscultation bilaterally Heart: regular rate and rhythm, no murmurs Abd: soft, non-tender, non-distended Ext: L garcia with desquamation + necrotic skin, marked erythema and edema surrounding Skin: warm/well-perfused Neuro: alert and oriented x3, no focal findings Psych: appropriate affect Objective Data Active Medications Albuterol Sulfate (Albuterol Sulfate 90 Mcg 8 Gm Inhaler) 2 puff INHALE RQ6H PRN PRN Reason: for wheezing Albuterol/Ipratropium (Albuterol/Iprat 2.5/0.5mg 3 Ml Ampul.Neb) 3 ml INHALE RQ6H PRN PRN Reason: wheezing Aspirin (Aspirin Enteric Coated 81 Mg Tablet.) 81 mg PO DAILY [facility] Last Admin: 08/25/21 08:43 Dose: 81 mg Documented by: TIMMY Collagenase (Collagenase Clostridium Hist. 30 Gm Tube) 1 appl TOPICAL DAILY [facility]; Protocol Last Admin: 08/25/21 08:49 Dose: 1 appl Documented by: TIMMY Dextrose (Dextrose 50 % 25 Gm/50 Ml Vial) 25 gm IVPUSH Q15M PRN; Protocol PRN Reason: per Hypoglycemia Standing Ord. Enoxaparin Sodium (Enoxaparin Sodium 40 Mg/0.4 Ml Syringe) 40 mg SUBCUT Q24H [facility] Last Admin: 08/24/21 14:40 Dose: 40 mg Documented by: MARLON Glipizide (Glipizide 10 Mg Tablet) 10 mg PO BIDWM [facility] Last Admin: 08/25/21 08:43 Dose: 10 mg Documented by: TIMMY Glucose (Glucose Gel 15 Gm Gel..Gram.) 15 gm PO Q15M PRN; Protocol PRN Reason: per Hypoglycemia Standing Ord. Vancomycin HCl 1,000 mg/Vancomycin HCl 750 mg/ Sodium Chloride 535 mls @ 267.5 mls/hr IV Q24H [facility] Last Infusion: 08/24/21 18:11 Dose: 0 mls/hr Documented by: AMEENAEMA Insulin Human Lispro (Insulin Lispro 100 Unit/Ml 3 Ml Vial) 0 unit SUBCUT QIDACHS [facility]; Protocol Last Admin: 08/25/21 11:35 Dose: Not Given Documented by: TIMMY Non-Admin Reason: No Insulin Coverage Lisinopril (Lisinopril 20 Mg Tablet) 20 mg PO DAILY [facility]; Protocol Last Admin: 08/25/21 08:43 Dose: 20 mg Documented by: AMEENAEMA Metformin HCl (Metformin Hcl 500 Mg Tablet) 500 mg PO BIDWM [facility] Last Admin: 08/25/21 08:43 Dose: 500 mg Documented by: COTEMA Oxycodone HCl (Oxycodone Hcl Immed Release 5 Mg Tablet) 5 mg PO Q4H PRN PRN Reason: Pain, Moderate (Pain Scale 4-6 Last Admin: 08/25/21 08:43 Dose: 5 mg Documented by: TIMMY Pharmacy Consult (Consult Rx Perform Med Rec) 1 each MISCELLANE ONCE PRN PRN Reason: Consult order Pharmacy Consult (Consult Rx Vancomycin Dosing) 1 each MISCELLANE DAILY PRN PRN Reason: Consult order Pravastatin Sodium (Pravastatin Sodium 40 Mg Tablet) 40 mg PO DAILY [facility] Last Admin: 08/25/21 08:43 Dose: 40 mg Documented by: TIMMY Sodium Chloride (0.9 % Sodium Chloride Flush 3 Ml Syringe) 3 ml IVFLUSH QSHIFT [facility] Last Admin: 08/25/21 08:43 Dose: 3 ml Documented by: TIMMY Vitamin D (Cholecalciferol (Vitamin D3) 25 Mcg Tablet) 50 mcg PO DAILY [facility] Last Admin: 08/25/21 08:43 Dose: 50 mcg Documented by: TIMMY Labs CBC & Chem 7: 08/25/21 06:02 08/25/21 06:02 Labs: Laboratory Results - last 24 hr 08/24/21 08/24/21 08/24/21 14:39 15:42 19:26 MCV MCH MCHC RDW Plt Count MPV Immature Gran % (Auto) Neut % (Auto) Lymph % (Auto) [place] % (Auto) Eos % (Auto) Baso % (Auto) Lymph # (Auto) [place] # (Auto) Eos # (Auto) Baso # (Auto) Abs Immat Gran (auto) Absolute Neuts (auto) Absolute Nucleated RBC Nucleated RBC % (auto) Anion Gap Estim Creat Clear Calc Estimated GFR POC Glucose 63 159 H Fasting Glucose Calcium Total Bilirubin AST ALT Alkaline Phosphatase Total Protein Albumin Vancomycin Trough 13.4 08/25/21 08/25/21 08/25/21 06:02 06:02 07:15 MCV 98.8 H MCH 31.4 MCHC 31.7 RDW 12.4 Plt Count 221 MPV 10.3 Immature Gran % (Auto) 0.2 Neut % (Auto) 62.3 Lymph % (Auto) 26.2 [place] % (Auto) 9.4 Eos % (Auto) 1.6 Baso % (Auto) 0.3 Lymph # (Auto) 2.3 [place] # (Auto) 0.8 Eos # (Auto) 0.1 Baso # (Auto) 0.0 Abs Immat Gran (auto) 0.02 Absolute Neuts (auto) 5.3 Absolute Nucleated RBC 0.000 Nucleated RBC % (auto) 0.0 Anion Gap 11 L Estim Creat Clear Calc 94.3 Estimated GFR > 60 POC Glucose 107 Fasting Glucose 106 H D Calcium 8.8 Total Bilirubin 0.6 AST 16 ALT 24 Alkaline Phosphatase 71 Total Protein 5.7 L Albumin 3.2 L Vancomycin Trough 08/25/21 11:07 MCV MCH MCHC RDW Plt Count MPV Immature Gran % (Auto) Neut % (Auto) Lymph % (Auto) [place] % (Auto) Eos % (Auto) Baso % (Auto) Lymph # (Auto) [place] # (Auto) Eos # (Auto) Baso # (Auto) Abs Immat Gran (auto) Absolute Neuts (auto) Absolute Nucleated RBC Nucleated RBC % (auto) Anion Gap Estim Creat Clear Calc Estimated GFR POC Glucose 106 Fasting Glucose Calcium Total Bilirubin AST ALT Alkaline Phosphatase Total Protein Albumin Vancomycin Trough Microbiology Microbiology Results: Microbiology 08/19/21 12:32 Blood Culture - Final Blood - Venous No growth after 5 days. Assessment and Plan (1) Cellulitis: Status: Acute (2) Type 2 diabetes mellitus with diabetic neuropathy, unspecified: Status: Acute (3) HTN (hypertension): Status: Acute Plan hospital d#7 76yo M with CAD, HTN, DM2 presenting with worsening LLE redness/swelling at site of weeping blister at site of skin trauma after fall # LLE cellulitis - IV vancomycin d#7/ Not bacteremic. will ask ID to see again given minimal improvement - wound care with Santyl # HTN - lisinopril # HLD - pravastatin # DM2 - correction-dose lispro, MTF, GPZ # VTE ppx - LMWH # dispo - STR recommended; pt refuses, saying he will go home with VNA and he has an electric wheelchair In my professional opinion, patient requires continued hospitalization for continued IV antibiotic administration given minimal improvement in infection. Quality Stroke Does the patient have a stroke diagnosis?: No VTE Prior VTE?: No VTE Risk Level:: Medical - moderate - high VTE Device Contraindication: Patient Refused VTE Drug Contraindication: N/A - Med Ordered
[2021-08-25] MEDS: Enoxaparin Sodium 40 MG/0.4 ML SYRINGE SUBCUT (14:15)
[2021-08-25] MEDS: vancomycin HCL 1,000 MG, vancomycin HCL 750 MG in 0.9 % Sodium Chloride 500 ML 267.5 MG IV (14:16)
[2021-08-25 15:53] LABS: Glucose, Whole Blood 67 mg/dL (60-115)
[2021-08-25 15:53] LABS: Glucose, Whole Blood 63 mg/dL (60-115)
[2021-08-25 16:36] LABS: Glucose, Whole Blood 116 mg/dL (60-115)
[2021-08-25 20:10] LABS: Glucose, Whole Blood 139 mg/dL (60-115)
[2021-08-26 03:32] VITALS: BP 122/60; PULSE 63; RESP 18; TEMP 37.1; O2SAT 94
[2021-08-26 07:42] VITALS: BP 125/60; PULSE 63; RESP 18; TEMP 36.5; O2SAT 93
[2021-08-26 08:27] LABS: Glucose, Whole Blood 121 mg/dL (60-115)
[2021-08-26] MEDS: Aspirin Enteric Coated 81 MG TABLET.DR PO (08:53)
[2021-08-26] MEDS: Cholecalciferol (Vitamin D3) 25 MCG TABLET 50 MCG PO (08:53)
[2021-08-26] MEDS: metFORMIN HCl 500 MG TABLET PO (08:54)
[2021-08-26] MEDS: glipiZIDE 10 MG TABLET PO (08:54)
[2021-08-26] MEDS: 0.9 % Sodium Chloride Flush 3 ML SYRINGE IVFLUSH (08:54)
[2021-08-26] MEDS: lisinopriL 20 MG TABLET PO (08:54)
[2021-08-26] MEDS: Pravastatin Sodium 40 MG TABLET PO (08:54)
[2021-08-26] MEDS: Collagenase Clostridium Hist. 30 GM TUBE 1 APPL TOPICAL (09:02)
[2021-08-26] MEDS: oxyCODONE HCl Immed Release 5 MG TABLET PO (09:37)
[2021-08-26 11:18] VITALS: BP 123/59; PULSE 69; RESP 18; TEMP 36.6; O2SAT 93
[2021-08-26 11:23] LABS: Glucose, Whole Blood 123 mg/dL (60-115)
--- NOTE | 2021-08-26 11:42 | W.MHC.F2F ---
Service Date Service Date: 08/26/21 Encounter Date of encounter: 08/26/21 Reasons for Services Signs and symptoms assessed: wound care Reason for intermediate: wound care Reason for physical therapy: home safety and mobility, therapeutic exercises, gait/transfer training, assess need for DME, ADL training and energy conservation Overseeing Care: Billy Longoria Homebound: Leaving the home is medically contraindicated at this time without the asist of a device and/or another person due th the listed conditions above and below. Reason homebound: immunosuppression / infection risk and weakness related to hospital stay Homebound supporting statement: wound care daily: clean with wound cleanser then apply Santyl, then cover with non-adherent pad and then roll gauze Certification: Based on the above findings, I certify that this patient is confined to the home and needs intermittent intermediate care, physical therapy and/or speech therapy, or continues to need occupational therapy. The patient is under my care, and I have initiated the establishment of the plan of care. The patient will be followed by a physician who will periodically review the plan of care.
--- NOTE | 2021-08-26 11:50 | PM.DS ---
DS: Providers Provider Date of Service: 08/26/21 Date of admission: 08/19/21 14:18 Primary care physician: Billy Longoria MD Consults: 08/22/21 04:59 Consult to Infectious Diseases Routine Consulting Provider: Meggan Hedrick Reason for consultation: bacteremia DS: Diagnosis Discharge Diagnosis (1) Cellulitis: Status: Acute (2) Leg wound, left: Status: Acute DS: Summary Hospital Course Hospital Course: from admission H+P by hospitalist Israel Ballard DO, 08/19/21: 76-year-old male with a history of [id number] diabetes, COPD, sleep apnea, hypertension, hyperlipidemia here with reports of left lower leg swelling, redness and pain for the last week.? Patient tells me he initially noticed that there was a blister on the left leg.? During the week of the blister ruptured and since then he has had increasing pain, redness and swelling of the leg.? He denies any fevers or chills.? He does have COPD and has chronic shortness of breath but feels like today it is at his baseline.? He denies any increased cough, chest pain.? Venous duplex left lower extremity negative This 76yo M with CAD, HTN, and DM2 presenting with worsening LLE redness/swelling at site of weeping blister at site of skin trauma after fall was admitted for LLE cellulitis and treated with 7 days of IV vancomycin. He was not septic and not bacteremic. Wound care was done with wound cleanser, Santyl, nonadherent pad, and roll gauze. Short-term rehabilitation at a SNF was highly recommended to the patient, but he repeatedly declined. He was discharged home with VNA services for wound care and home PT, and prescribed 7 more days of antibiotic treatment with PO doxycycline. Time Spent with Patient Time attestation: Total time spent providing and/or coordinating discharge services: Discharge coordination time: Greater than 30 minutes Quality: Stroke Does the patient have a stroke diagnosis?: No Physical Exam Vital Signs: Vital Signs: Last Vital Signs Temp 98 F 08/26/21 11:18 Pulse 69 08/26/21 11:18 Resp 18 08/26/21 11:18 BP 123/59 L 08/26/21 11:18 Pulse Ox 93 08/26/21 11:18 BMI result Body Mass Index 31.6 Gen: in no acute distress HEENT: sclera anicteric, moist mucus membranes Neck: supple Lungs: clear to auscultation bilaterally Heart: regular rate and rhythm, no murmurs Abd: soft, non-tender, non-distended Ext: L garcia with superficial leg wound with some weeping, some surrounding erythema though improved from last 2d, no purulence; bilateral venous stasis changes to legs Skin: warm/well-perfused Neuro: alert and oriented x3, no focal findings Psych: appropriate affect DS: Data Data Completed and Pending Completed studies during hospitalization [Text1]: Laboratory Results WBC 8.6 X10*3/uL (4.8-10.8) 08/25/21 06:02 RBC 4.21 X10*6/uL (4.60-5.80) L 08/25/21 06:02 Hgb 13.2 g/dl (14.0-18.0) L 08/25/21 06:02 Hct 41.6 % (42.0-52.0) L 08/25/21 06:02 MCV 98.8 fL (80.0-98.0) H 08/25/21 06:02 MCH 31.4 pg (27.0-33.0) 08/25/21 06:02 MCHC 31.7 g/dl (31.0-36.0) 08/25/21 06:02 RDW 12.4 % (11.0-16.0) 08/25/21 06:02 Plt Count 221 X10*3/uL (160-400) 08/25/21 06:02 MPV 10.3 fL (9.4-12.4) 08/25/21 06:02 Immature Gran % (Auto) 0.2 % (0.0-0.4) 08/25/21 06:02 Neut % (Auto) 62.3 % (45-73) 08/25/21 06:02 Lymph % (Auto) 26.2 % (20-40) 08/25/21 06:02 [place] % (Auto) 9.4 % (2-11) 08/25/21 06:02 Eos % (Auto) 1.6 % (0-4) 08/25/21 06:02 Baso % (Auto) 0.3 % (0-2) 08/25/21 06:02 Lymph # (Auto) 2.3 X10*3/uL (1.2-4.9) 08/25/21 06:02 [place] # (Auto) 0.8 X10*3/uL (0.1-1.2) 08/25/21 06:02 Eos # (Auto) 0.1 X10*3/uL (0.0-0.4) 08/25/21 06:02 Baso # (Auto) 0.0 X10*3/uL (0.0-0.2) 08/25/21 06:02 Abs Immat Gran (auto) 0.02 X10*3/uL (0.00-0.03) 08/25/21 06:02 Absolute Neuts (auto) 5.3 x10*3/uL (2.0-8.3) 08/25/21 06:02 Absolute Nucleated RBC 0.000 X10*3/uL (0.0-0.012) 08/25/21 06:02 Nucleated RBC % (auto) 0.0 /100WBC (0.0-0.2) 08/25/21 06:02 Sodium 136 mmol/L (135-145) 08/25/21 06:02 Potassium 4.7 mmol/L (3.3-5.1) 08/25/21 06:02 Chloride 103 mmol/L (96-108) 08/25/21 06:02 Carbon Dioxide 27 mmol/L (22-29) 08/25/21 06:02 Anion Gap 11 (12-20) L 08/25/21 06:02 BUN 29 mg/dL (9-16) H 08/25/21 06:02 Creatinine 0.92 mg/dL (0.5-1.4) 08/25/21 06:02 Estim Creat Clear Calc 94.3 08/25/21 06:02 Estimated GFR > 60 08/25/21 06:02 POC Glucose 123 mg/dL (60-115) H 08/26/21 11:16 Random Glucose 119 mg/dL (60-115) H 08/19/21 12:25 Fasting Glucose 106 mg/dL (60-99) H D 08/25/21 06:02 Lactic Acid 2.2 mmol/L (0.5-2.0) H* 08/19/21 12:25 Lactic Acid F/U @ 2Hr 2.3 mmol/L (0.5-2.0) H* 08/19/21 14:48 Lactic Acid F/U @ 4Hr 2.1 mmol/L (0.5-2.0) H* 08/19/21 17:40 Calcium 8.8 mg/dL (8.4-10.2) 08/25/21 06:02 Magnesium 1.9 mg/dL (1.6-2.6) 08/19/21 12:25 Total Bilirubin 0.6 mg/dL (0.0-1.0) 08/25/21 06:02 Direct Bilirubin 0.4 mg/dL (0.0-0.5) 08/19/21 12:25 AST 16 U/L (5-37) 08/25/21 06:02 ALT 24 U/L (0-40) 08/25/21 06:02 Alkaline Phosphatase 71 U/L (39-117) 08/25/21 06:02 Troponin I High Sens 9.1 ng/L (<3.5-35.0) 08/19/21 12:25 C-Reactive Protein 1.02 mg/dL (< or = 0.50) H 08/24/21 05:34 B-Natriuretic Peptide 77 pg/mL (<100) 08/19/21 12:25 Total Protein 5.7 g/dL (6.5-8.0) L 08/25/21 06:02 Albumin 3.2 g/dL (3.5-5.0) L 08/25/21 06:02 Vancomycin Trough 13.4 mcg/mL (10.0-20.0) 08/24/21 14:39 COVID-19 (BREONNA) Negative (Negative) 08/19/21 12:32 COVID-19 Clin Com See Note 08/19/21 12:32 Impressions Chest X-Ray 08/19/21 12:47 IMPRESSION: Unremarkable left lower extremity venous study. There is no evidence of DVT. Venous Duplex 08/19/21 13:09 IMPRESSION: Unremarkable left lower extremity venous study. There is no evidence of DVT. Discharge Plan Discharge Patient Disposition: Home Health Service Discharge Diagnosis: cellulitis Referrals: Jody Michael [Outside] - 1 Day ([facility]) Billy Longoria MD [Primary Care Provider] - 1 Week Discharge Medications: New doxycycline monohydrate 100 mg tablet 100 mg PO BID Qty: 14 0RF Continued albuterol sulfate 90 mcg/actuation HFA aerosol inhaler 2 puff inhalation Q6H PRN (Reason: for wheezing) Qty: 8.5 0RF Flovent HFA 220 mcg/actuation HFA aerosol inhaler 1 puff inhalation BID 0RF budesonide 180 mcg/actuation aerosol powdr breath activated 1 inh inhalation BID 0RF cholecalciferol (vitamin D3) 50 mcg (2,000 unit) capsule 50 mcg PO DAILY 90 Days Qty: 90 3RF pravastatin 40 mg tablet 40 mg PO DAILY Qty: 90 3RF ipratropium-albuterol 0.5 mg-3 mg(2.5 mg base)/3 mL solution for nebulization 3 ml inhalation Q6H PRN (Reason: wheezing) 30 Days Qty: 360 3RF lisinopril 20 mg tablet 20 mg PO DAILY 90 Days Qty: 90 1RF glipizide 10 mg tablet 10 mg PO BID 90 Days Qty: 180 1RF metformin 500 mg tablet 500 mg PO BID 90 Days Qty: 180 1RF aspirin 81 mg tablet,delayed release (DR/EC) 81 mg PO DAILY Qty: 30 0RF Discharge Orders: Discharge Order (Routine); Ordered 08/26/21 Ordered By: Johana Vaughn Diet: diabetic diet Activity on Discharge: As tolerated Stand Alone Forms: Patient Portal Discharge page Care Plan Goals: healing of wound/cellulitis Health Concerns: cellulitis Plan of Treatment: wound care daily: clean with wound cleanser then apply Santyl, then cover with non-adherent pad and then roll gauze see primary care doctor in 1 week Assessment: see Discharge Summary Patient Instructions: Cellulitis (DC)
[2021-08-26 13:48] LABS: Creatinine Clr Calc Pharmacy 95.4; Estimated Glomerular Filt Rate > 60
[2021-08-26 14:01] LABS: Vancomycin Trough 12.5 mcg/mL (10.0-20.0)
--- NOTE | 2021-08-26 14:06 | HE.PHANOTE ---
Vancomycin Dosing Addendum Vancomycin trough 12.5, continue current regimen of 1750 mg q24h. next trough 08/28/21 @1300.
--- NOTE | 2021-08-26 16:07 | MHC.CM.PN ---
PT WILL DC HOME TODAY WITH M[facility]ER GRACE PT WILL BE TRANSPORTED VIA [facility] KEI PT REPORTED CONCERN THAT HE WOULD NOT BE ABLE TO GET UP TO HIS APARTMENT AND INTO HIS ELECTRIC W/C CM CALLED [facility] AND SPOKE WITH DISPATCH WHO INDICATED LONG PT IS ONE ASSIST, THE [facility]ARD[facility] WASTE MANAGEMENT SPECIALIST WILL BE ABLE TO HELP HIM WITH THIS. PT JUANCARLOS INDICATES PT IS A ONE ASSIST TO TRANSFER. PATIENT INFORMED
== END 2021-08-26 16:19 | disposition home health service (06) | DRG 603 ==
LOC: HO.ED 13:39 → HO.EDOVER 14:24 → HO.S3 08-21 07:26
PROVIDERS: Nurse Practitioner Family; Admitting Provider Hospitalist; Emergency Provider Emergency Medicine; PCP Internal Medicine; Visit Provider Family Medicine
DX: L03.116 Cellulitis of left lower limb (principal); I87.322 Chronic venous hypertension (idiopathic) with inflammation of left lower extremity; I25.10 Atherosclerotic heart disease of native coronary artery without angina pectoris; E11.40 Type 2 diabetes mellitus with diabetic neuropathy, unspecified; I10 Essential (primary) hypertension; J44.9 Chronic obstructive pulmonary disease, unspecified; E78.5 Hyperlipidemia, unspecified; Z20.822 Contact with and (suspected) exposure to COVID-19; F17.210 Nicotine dependence, cigarettes, uncomplicated; Z71.6 Tobacco abuse counseling; Z79.82 Long term (current) use of aspirin; Z79.84 Long term (current) use of oral hypoglycemic drugs; Z79.899 Other long term (current) drug therapy
CPT/HCPCS: 36415; 71046; 80048; 80053; 80076; 80202; 82565; 82947; 83605; 83735; 83880; 84484; 85025; 86140; 87040; 87147; 87205; 87635; 93005; 93971; 96365; 96366; 96367; 97110; 97116; 97161; 99285; J1650; J1940; J2543; J3370

== ENCOUNTER 2022-02-03 12:13 | Inpatient (IN) | payer MEDICARE, BC, SELFPAY ==
--- NOTE | ~2022-02-03 | US_ITS ---
EXAMINATION: US VENOUS ULTRASOUND WITH DOPPLER LOWER EXTREMITY, LEFT CLINICAL INFORMATION: Edema COMPARISON: None TECHNIQUE: Ultrasound of the deep veins is performed from the hip to the calf with compression sonography and color and pulse Doppler assessment. Spectral analysis with color-flow imaging is performed. FINDINGS: There is normal venous compression and respiratory variation and augmented flow. The visualized common femoral vein, superficial femoral vein, profunda femoral vein, popliteal vein, and the trifurcation region shows no evidence of deep venous thrombosis. There is no significant popliteal fossa cyst. If the patient's symptoms persist, followup ultrasound in 5 days 7 days might be of value to exclude proximal propagation from a non-visualized calf vein. US/US venous duplex LE LT IMPRESSION: No DVT demonstrated in the left lower extremity.
--- NOTE | ~2022-02-03 | XR_ITS ---
EXAMINATION: XR chest 1V CLINICAL INFORMATION: Left leg cellulitis COMPARISON: Prior chest x-ray August 2021 TECHNIQUE: XR chest 1V Tubes and lines: None Lungs and pleura: Linear opacity likely platelike atelectasis at right lung base might be chronic or recurrent. Blunting of costophrenic angles probably small effusions. Heart and mediastinum: The mediastinum is within normal limits.. Bones/soft tissue: Skeletal structures included are normal for patient's age. XR/XR chest 1V IMPRESSION: Linear opacity probably atelectasis at right lung base. Probably small subpulmonic pleural effusions.
--- NOTE | ~2022-02-03 | XR_ITS ---
EXAMINATION: XR TIBIA AND FIBULA, LEFT CLINICAL INFORMATION: Cellulitis COMPARISON: None TECHNIQUE: AP and lateral views of the left tibia and fibula were obtained. FINDINGS: No osseous changes to suggest osteomyelitis. Both tibia and fibula are intact. There are soft tissue calcifications. XR/XR tibia fibula LT 2V IMPRESSION: Soft tissue calcification. No osseous changes to suggest osteomyelitis at this time.
[2022-02-03 12:30] VITALS: BP 122/60; BP 139/63; PULSE 75; PULSE 76; RESP 16; TEMP 36.9; O2SAT 99; BMI 32.1
--- NOTE | 2022-02-03 12:53 | ECG_ITS ---
Test Reason : GENERAL MEDICAL Blood Pressure : / mmHG Vent. Rate : 070 BPM Atrial Rate : 070 BPM P-R Int : 170 ms QRS Dur : 070 ms QT Int : 386 ms P-R-T Axes : 087 040 060 degrees QTc Int : 416 ms Sinus rhythm with Premature supraventricular complexes Anterior infarct , age undetermined Abnormal ECG When compared with ECG of 19-AUG-2021 13:03, Premature supraventricular complexes are now Present Referred By: Krista Ramirez Electronically Signed By:MASTER MARCELO
[2022-02-03] MEDS: 0.9 % Sodium Chloride 1,000 ML 999 ML IV (13:53)
[2022-02-03 14:52] LABS: MANUAL DIFF FLAG NO
[2022-02-03 14:53] LABS: Basophils Percent Auto 0.3 % (0-2); Eosinophils Absolute Auto 0.1 X10*3/uL (0.0-0.4); Eosinophils Percent Auto 0.8 % (0-4); Hematocrit 43.6 % (42.0-52.0); Hemoglobin 13.8 g/dl (14.0-18.0); Imm Gran Abs Auto 0.02 X10*3/uL (0.00-0.03); Imm Gran Pct Auto 0.2 % (0.0-0.4); Lymphocytes Absolute Auto 2.8 X10*3/uL (1.2-4.9); Lymphocytes Percent Auto 31.9 % (20-40); Mean Corpuscular HGB Conc 31.7 g/dl (31.0-36.0); Mean Platelet Volume 9.3 fL (9.4-12.4); Monocytes Absolute Auto 0.6 X10*3/uL (0.1-1.2); Monocytes Percent Auto 6.4 % (2-11); Neutrophils Absolute Auto 5.3 x10*3/uL (2.0-8.3); Neutrophils Percent Auto 60.4 % (45-73); Platelet Count 280 X10*3/uL (160-400); Red Blood Count 4.45 X10*6/uL (4.60-5.80); Red Cell Distribution Width 12.8 % (11.0-16.0); White Blood Count 8.8 X10*3/uL (4.8-10.8)
[2022-02-03 15:07] LABS: Lactic Acid 0.9 mmol/L (0.5-2.0)
[2022-02-03 15:13] LABS: Alanine Aminotransferase 10 U/L (0-40); Albumin Level 3.6 g/dL (3.5-5.0); Alkaline Phosphatase 86 U/L (39-117); Anion Gap 13 (12-20); Aspartate Amino Transferase 12 U/L (5-37); Bilirubin Direct 0.2 mg/dL (0.0-0.5); Bilirubin Total 0.4 mg/dL (0.0-1.0); Blood Urea Nitrogen 15 mg/dL (9-16); Calcium 8.7 mg/dL (8.4-10.2); Carbon Dioxide 27 mmol/L (22-29); Chloride 104 mmol/L (96-108); Creatinine Clr Calc Pharmacy 105.8; Estimated Glomerular Filt Rate > 60; Glucose Random 89 mg/dL (60-115); Lipase 25 U/L (8-78); Potassium 4.5 mmol/L (3.3-5.1); Sodium 139 mmol/L (135-145); Total Protein 6.5 g/dL (6.5-8.0)
[2022-02-03 15:19] LABS: Troponin-I High Sensitivity 4.3 ng/L (<3.5-35.0)
[2022-02-03 15:22] LABS: COVID-19 Test Negative (Negative); IDNOW Serial# 08D9AD1C
--- NOTE | 2022-02-03 15:23 | ED_ITS ---
HPI - Extremity Problem General Chief complaint: Extremity Problem Stated complaint: L LEG SWELLING/LEAKING D/T H/O CELLULITIS PER [facility]NA Time Seen by Provider: 02/03/22 12:52 Source: patient and EMS Mode of arrival: EMS Limitations: no limitations History of Present Illness HPI Narrative: 77-year-old male with history of non insulin-dependent diabetes, COPD, sleep apnea, hypertension, hyperlipidemia came in for evaluation of possible left lower extremities infection. Patient has history of chronic left leg ulcer and venous stasis presented today with worsening of his left leg condition, increased redness and bad odor from the left leg, no fever, no chills. Patient had a previous left lower extremities infection in the past require 7 days of IV antibiotic and hospitalization. Patient get VNA services at home to take care of left lower extremity dressing changes. Related Data Home Medications Medication Instructions Recorded Confirmed budesonide 180 mcg/actuation 1 inh inhalation BID 04/26/20 01/17/22 breath activated powder inhaler fluticasone propionate 220 1 puff inhalation BID 04/26/20 01/17/22 mcg/actuation HFA aerosol inhaler (Flovent HFA) miscellaneous medical supply miscellaneous 10/25/21 01/17/22 Previous Rx's Medication Instructions Recorded aspirin 81 mg tablet,delayed 81 mg PO DAILY #30 tabs 04/12/20 release albuterol sulfate 90 mcg/actuation 2 puff inhalation Q6H PRN for 07/27/20 aerosol inhaler wheezing #8.5 grams cholecalciferol (vitamin D3) 50 50 mcg PO DAILY 90 days #90 caps 03/15/21 mcg (2,000 unit) capsule ipratropium 0.5 mg-albuterol 3 mg 3 ml inhalation Q6H PRN wheezing 03/15/21 (2.5 mg base)/3 mL nebulization 30 days #360 mL soln pravastatin 40 mg tablet 40 mg PO DAILY #90 tabs 03/15/21 glipizide 10 mg tablet 10 mg PO BID 90 days #180 tabs 07/17/21 lisinopril 20 mg tablet 20 mg PO DAILY 90 days #90 tabs 07/17/21 metformin 500 mg tablet 500 mg PO BID 90 days #180 tabs 07/17/21 acetaminophen 500 mg tablet 1,000 mg PO Q6H PRN pain #40 tabs 09/01/21 (Tylenol Extra Strength) doxycycline hyclate 100 mg capsule 100 mg PO BID 10 days #20 caps 09/27/21 furosemide 20 mg tablet 20 mg PO DAILY 10 days #10 tabs 09/27/21 collagenase clostridium histo. 250 1 appl topical DAILY #90 grams 10/04/21 unit/gram topical ointment (Santyl) ELECTRIC WHEELCHAIR #1 ea 10/25/21 nystatin 100,000 unit/gram topical 1 appl topical TID 10 days #60 11/01/21 powder grams amoxicillin 875 mg-potassium 1 tab PO BID #14 tabs 01/17/22 clavulanate 125 mg tablet gabapentin 100 mg capsule 200 mg PO TID pain 30 days #180 01/17/22 caps Allergies Allergy/AdvReac Type Severity Reaction Status Date / Time Fish Containing Products Allergy Severe ANAPHYLAXIS Verified 01/17/22 09:59 shellfish derived Allergy Severe ANAPHYLAXIS Verified 01/17/22 09:59 Review of Systems Review of Systems: All other systems are reviewed and are negative Constitutional: Reports as per HPI and Reports no additional constitutional complaints Eyes: Reports as per HPI and Reports no additional eye complaints Reports system reviewed and no additional complaints, except as documented Cardiovascular: Reports as per HPI and Reports no additional cardiovascular complaints Respiratory: Reports as per HPI and Reports no additional respiratory complaints Gastrointestinal: Reports as per HPI and Reports no additional gastrointestinal complaints Genitourinary: Reports no additional female genitourinary complaints Musculoskeletal: Reports no additional musculoskeletal complaints Skin/Breast: Reports system reviewed and no additional complaints, except as docu Psychiatric: Reports no additional psychiatric complaints Endocrine: Reports no additional endocrine complaints Hematologic/Lymphatic: Reports no additional hematologic/lymphatic complaints Allergic/Immunologic: Reports no additional allergic/immunologic complaints Reports system reviewed and no additional complaints, except as documented and Reports Abnormal speech present [facility] Past Medical History Medical History Benign essential hypertension CAD (coronary artery disease) COPD (chronic obstructive pulmonary disease) COPD (chronic obstructive pulmonary disease) Coronary artery disease Depression DM2 (diabetes mellitus, type 2) Erectile disorder due to medical condition in male HLD (hyperlipidemia) HTN (hypertension) Neuropathy Obesity (BMI 30-39.9) Obesity (BMI 30.0-34.9) FADY (obstructive sleep apnea) Primary osteoarthritis of both knees Psoriasis Pulmonary hypertension Pure hypercholesterolemia Type 2 diabetes mellitus with diabetic neuropathy, unspecified Vitamin D deficiency Surgical History No pertinent past surgical history Family History Family History Father Medical history unknown Mother Cancer Social History Social History Household Members: None Housing: Apartment Do you presently have visiting nurse or other home services: Yes (homemaker 3 hours of fridays) Alcohol intake: current Alcohol intake frequency: holidays/special occasions only Alcohol type: beer and wine Patient Tobacco Use Status: Current everyday Tobacco user Tobacco use type: Cigarette Cigarettes Per Day: 10 Years Smoked: 59 years e-Cigarette/Vaping Use: Never Used Second Hand Smoke Exposure: Yes Advance Directives: Yes Advance Directives Information Provided: No Advance Directives on File: No service: No Current occupational status: retired Cognitive needs: No Hearing needs: No Vision needs: No Physical Exam Vital Signs: Vital Signs: Last Vital Signs Temp 98.4 F 02/03/22 12:30 Pulse 76 02/03/22 12:30 Resp 16 02/03/22 12:30 BP 139/63 02/03/22 12:30 Pulse Ox 99 02/03/22 12:30 O2 Del Method 02/03/22 12:30 BMI result Body Mass Index 32.1 Vital signs have been reviewed as appeared to be correct. Blood pressure normal. Heart rate normal. Respiration rate normal. Temperature normal. Oxygen saturation normal. Appearance: Alert. Oriented X3. No acute distress. Head: Normal external exam. Normocephalic. Atraumatic. No Manzano signs noted. No raccoon eyes noted Eyes: PERRLA. EOMI. Conjunctiva and sclera normal. Eyelids normal. ENT: TM's Normal. Pharynx normal. Uvula midline. Moist mucous membranes. No trismus noted. No drooling noted. No muffled voice noted. Neck: Normal inspection. Neck supple. FROM. No adenopathy. Thyroid Normal. No meningeal signs. No neck mass noted. CVS: Normal heart rate and rhythm. Heart sound normal. No murmurs noted. Pulses normal throughout. Respiratory: No respiratory distress. Painless inspiration. Breath sounds normal. No wheezes/rales/rhonchi noted. Chest nontender. No accessory muscle usage noted or decreased air movement noted. Abdomen: Soft and nontender. Bowel sounds normal in all 4 quadrants. No distention noted. No organomegaly noted. No visible injury noted. Back: No CVA tenderness. Full range of motion noted. Skin: Skin warm and dry. Normal skin color. Normal skin turgor. No rashes/lesions/lacerations noted. Extremities: Left lower extremity: Redness, hotness, tenderness to the left lower extremities, areas of granulation and chronic ulceration with bad odor, neurovascularly intact. Neuro: Oriented X 3. Cranial nerve exam: II-XII are grossly intact No motor deficit. No sensory deficit. Reflexes normal. Course Course Course Narrative: 77-year-old male history of diabetes and chronic left lower extremities wound came in with acute infection top of the chronic wound patient do not meet criteria for sepsis or septic shock however patient had a history of previous hospitalization requiring IV antibiotic excuse me in the past, patient also had history of bacteremia in the past will admit the patient for IV antibiotic. MDM - Extremity (Nontraumatic) Medical Records Attestation: I reviewed the patient's medical records. Lab Data Result diagrams: 02/03/22 14:42 02/03/22 14:42 Labs: Lab Results 02/03/22 02/03/22 02/03/22 Range/Units 14:42 14:42 14:42 WBC 8.8 (4.8-10.8) X10*3/uL RBC 4.45 L (4.60-5.80) X10*6/uL Hgb 13.8 L (14.0-18.0) g/dl Hct 43.6 (42.0-52.0) % MCV 98.0 (80.0-98.0) fL MCH 31.0 (27.0-33.0) pg MCHC 31.7 (31.0-36.0) g/dl RDW 12.8 (11.0-16.0) % Plt Count 280 D (160-400) X10*3/uL MPV 9.3 L (9.4-12.4) fL Immature Gran % (Auto) 0.2 (0.0-0.4) % Neut % (Auto) 60.4 (45-73) % Lymph % (Auto) 31.9 (20-40) % [place] % (Auto) 6.4 (2-11) % Eos % (Auto) 0.8 (0-4) % Baso % (Auto) 0.3 (0-2) % Lymph # (Auto) 2.8 (1.2-4.9) X10*3/uL [place] # (Auto) 0.6 (0.1-1.2) X10*3/uL Eos # (Auto) 0.1 (0.0-0.4) X10*3/uL Baso # (Auto) 0.0 (0.0-0.2) X10*3/uL Abs Immat Gran (auto) 0.02 (0.00-0.03) X10*3/uL Absolute Neuts (auto) 5.3 (2.0-8.3) x10*3/uL Absolute Nucleated RBC 0.000 (0.0-0.012) X10*3/uL Nucleated RBC % (auto) 0.0 (0.0-0.2) /100WBC Sodium 139 (135-145) mmol/L Potassium 4.5 (3.3-5.1) mmol/L Chloride 104 (96-108) mmol/L Carbon Dioxide 27 (22-29) mmol/L Anion Gap 13 (12-20) BUN 15 (9-16) mg/dL Creatinine 0.77 (0.5-1.4) mg/dL Estim Creat Clear Calc 105.8 Estimated GFR > 60 Random Glucose 89 (60-115) mg/dL Lactic Acid 0.9 (0.5-2.0) mmol/L Calcium 8.7 (8.4-10.2) mg/dL Total Bilirubin 0.4 (0.0-1.0) mg/dL Direct Bilirubin 0.2 (0.0-0.5) mg/dL AST 12 (5-37) U/L ALT 10 (0-40) U/L Alkaline Phosphatase 86 D (39-117) U/L Troponin I High Sens (<3.5-35.0) ng/L Total Protein 6.5 (6.5-8.0) g/dL Albumin 3.6 (3.5-5.0) g/dL Lipase 25 (8-78) U/L 02/03/22 Range/Units 14:42 WBC (4.8-10.8) X10*3/uL RBC (4.60-5.80) X10*6/uL Hgb (14.0-18.0) g/dl Hct (42.0-52.0) % MCV (80.0-98.0) fL MCH (27.0-33.0) pg MCHC (31.0-36.0) g/dl RDW (11.0-16.0) % Plt Count (160-400) X10*3/uL MPV (9.4-12.4) fL Immature Gran % (Auto) (0.0-0.4) % Neut % (Auto) (45-73) % Lymph % (Auto) (20-40) % [place] % (Auto) (2-11) % Eos % (Auto) (0-4) % Baso % (Auto) (0-2) % Lymph # (Auto) (1.2-4.9) X10*3/uL [place] # (Auto) (0.1-1.2) X10*3/uL Eos # (Auto) (0.0-0.4) X10*3/uL Baso # (Auto) (0.0-0.2) X10*3/uL Abs Immat Gran (auto) (0.00-0.03) X10*3/uL Absolute Neuts (auto) (2.0-8.3) x10*3/uL Absolute Nucleated RBC (0.0-0.012) X10*3/uL Nucleated RBC % (auto) (0.0-0.2) /100WBC Sodium (135-145) mmol/L Potassium (3.3-5.1) mmol/L Chloride (96-108) mmol/L Carbon Dioxide (22-29) mmol/L Anion Gap (12-20) BUN (9-16) mg/dL Creatinine (0.5-1.4) mg/dL Estim Creat Clear Calc Estimated GFR Random Glucose (60-115) mg/dL Lactic Acid (0.5-2.0) mmol/L Calcium (8.4-10.2) mg/dL Total Bilirubin (0.0-1.0) mg/dL Direct Bilirubin (0.0-0.5) mg/dL AST (5-37) U/L ALT (0-40) U/L Alkaline Phosphatase (39-117) U/L Troponin I High Sens 4.3 D (<3.5-35.0) ng/L Total Protein (6.5-8.0) g/dL Albumin (3.5-5.0) g/dL Lipase (8-78) U/L Imaging Data Chest x-ray: Attestation: I personally reviewed and interpreted this imaging study as follows: Radiologist's impression: Linear opacity probably atelectasis at right lung base. ? Probably small subpulmonic pleural effusions. Left leg x-ray: Attestation: I personally reviewed and interpreted this imaging study as follows: Radiologist's impression: Soft tissue calcification. ?No osseous changes to suggest osteomyelitis at this time. ? Discharge Plan Discharge Clinical Impression: Cellulitis of left leg Patient Disposition: Admitted As Inpatient Prescriptions: No Action albuterol sulfate 90 mcg/actuation HFA aerosol inhaler 2 puff inhalation Q6H PRN (Reason: for wheezing) Qty: 8.5 0RF doxycycline hyclate 100 mg capsule 100 mg PO BID 10 Days Qty: 20 0RF furosemide 20 mg tablet 20 mg PO DAILY 10 Days Qty: 10 0RF Santyl 250 unit/gram ointment 1 appl topical DAILY Qty: 90 0RF miscellaneous medical supply Misc miscellaneous Rx Instructions: Electric Wheelchair. (DME) ELECTRIC WHEELCHAIR See Rx Instructions .Route .MEDSUPPLY Qty: 1 0RF Rx Instructions: As directed nystatin 100,000 unit/gram powder 1 appl topical TID 10 Days Qty: 60 3RF Flovent HFA 220 mcg/actuation HFA aerosol inhaler 1 puff inhalation BID budesonide 180 mcg/actuation aerosol powdr breath activated 1 inh inhalation BID cholecalciferol (vitamin D3) 50 mcg (2,000 unit) capsule 50 mcg PO DAILY 90 Days Qty: 90 3RF pravastatin 40 mg tablet 40 mg PO DAILY Qty: 90 3RF ipratropium-albuterol 0.5 mg-3 mg(2.5 mg base)/3 mL solution for nebulization 3 ml inhalation Q6H PRN (Reason: wheezing) 30 Days Qty: 360 3RF lisinopril 20 mg tablet 20 mg PO DAILY 90 Days Qty: 90 1RF glipizide 10 mg tablet 10 mg PO BID 90 Days Qty: 180 1RF metformin 500 mg tablet 500 mg PO BID 90 Days Qty: 180 1RF acetaminophen [Tylenol Extra Strength] 500 mg tablet 1,000 mg PO Q6H PRN (Reason: pain) Qty: 40 0RF amoxicillin-pot clavulanate 875-125 mg tablet 1 tab PO BID Qty: 14 0RF gabapentin 100 mg capsule 200 mg PO TID 30 Days Qty: 180 0RF aspirin 81 mg tablet,delayed release (DR/EC) 81 mg PO DAILY Qty: 30 0RF
[2022-02-03] MEDS: Piperacillin Sodium/Tazobactam 3.375 GM in 0.9 % Sodium Chloride 50 ML IV (15:56)
[2022-02-03] MEDS: vancomycin HCL 1,000 MG in 0.9 % Sodium Chloride 250 ML 270 MG IV (16:23)
--- NOTE | 2022-02-03 16:31 | P.HPHOSP_ITS ---
History of Present Illness Date of Service: 02/03/22 Attending physician on admission: Israel Ballard Chief Complaint: Left leg redness and swelling This is a 77-year-old male with history of diabetes, COPD, hypertension, hyperlipidemia who was sent to the emergency department by [facility] today for evaluation of his left leg. He was admitted to the hospital in August for left lower extremity cellulitis. He was discharged home visiting nurses and reports that [facility] has been coming 3 times a week since then. On January 17 he called [facility]NA called his PCP who called in a 7 day course of Augmentin which the patient completed. Last Saturday, the VNA wrapped up his leg and then did come back again. He called his primary care provider to obtain a new visiting nurse company. A new company came today for the 1st time and on wrapped his legs for the 1st time in 8 days. His leg was noted to be red, swollen, warm, tender to palpation and so they recommended that he come to the emergency department for evaluation. He denies any fevers but does report intermittent chills over the past 1 or 2 days. In the emergency department he was afebrile. Lab work was unremarkable. X-ray of his left leg showed no evidence of osteomyelitis or gas. He was started on IV vancomycin and Zosyn and the decision was made to admit him to the hospital for further management of left lower extremity cellulitis. COVID-19 vaccination status-moderna x3 Review of Systems Review of Systems: Yes all other systems are reviewed and are negative Constitutional: Constitutional: Reports chills and Denies fever(s) Cardiovascular: Cardiovascular: Denies chest pain and Denies palpitations Respiratory: Respiratory: Denies cough Gastrointestinal: Gastrointestinal: Denies abdominal pain, Denies nausea and Denies vomiting Endocrine: Endocrine: Denies palpitations [facility] Medical History Benign essential hypertension CAD (coronary artery disease) COPD (chronic obstructive pulmonary disease) COPD (chronic obstructive pulmonary disease) Coronary artery disease Depression DM2 (diabetes mellitus, type 2) Erectile disorder due to medical condition in male HLD (hyperlipidemia) HTN (hypertension) Neuropathy Obesity (BMI 30-39.9) Obesity (BMI 30.0-34.9) FADY (obstructive sleep apnea) Primary osteoarthritis of both knees Psoriasis Pulmonary hypertension Pure hypercholesterolemia Type 2 diabetes mellitus with diabetic neuropathy, unspecified Vitamin D deficiency Family History Father Medical history unknown Mother Cancer Surgical History No pertinent past surgical history Social History Household Members: None Housing: Apartment Do you presently have visiting nurse or other home services: Yes (homemaker 3 h ours of fridays) Alcohol intake: current Alcohol intake frequency: holidays/special occasions only Alcohol type: beer and wine Patient Tobacco Use Status: Current everyday Tobacco user Tobacco use type: Cigarette Cigarettes Per Day: 10 Years Smoked: 59 years e-Cigarette/Vaping Use: Never Used Second Hand Smoke Exposure: Yes Advance Directives: Yes Advance Directives Information Provided: No Advance Directives on File: No service: No Current occupational status: retired Cognitive needs: No Hearing needs: No Vision needs: No Meds Allergies Allergy/AdvReac Type Severity Reaction Status Date / Time Fish Containing Products Allergy Severe ANAPHYLAXIS Verified 01/17/22 09:59 shellfish derived Allergy Severe ANAPHYLAXIS Verified 01/17/22 09:59 Active Medications: Current Medications Acetaminophen (Acetaminophen 325 Mg Tablet) 650 mg PO Q6H PRN PRN Reason: Pain, Mild (Pain Scale 1-3) Dextrose (Dextrose 50 % 25 Gm/50 Ml Syringe) 25 gm IVPUSH Q15M PRN; Protocol PRN Reason: per Hypoglycemia Standing Ord. Docusate Sodium (Docusate Sodium 100 Mg Capsule) 100 mg PO DAILY PRN PRN Reason: Constipation Enoxaparin Sodium (Enoxaparin Sodium 40 Mg/0.4 Ml Syringe) 40 mg SUBCUT Q24H SHELBIE Glucose (Glucose Gel 15 Gm Gel..Gram.) 15 gm PO Q15M PRN; Protocol PRN Reason: per Hypoglycemia Standing Ord. Piperacillin Sod/Tazobactam (Sod 4.5 gm/ Sodium Chloride) 50 mls @ 100 mls/hr IV Q8H SHELBIE Insulin Human Lispro (Insulin Lispro 100 Unit/Ml 3 Ml Vial) 0 unit SUBCUT QIDACHS SHELBIE; Protocol Morphine Sulfate (Morphine Sulfate 4 Mg/Ml Cartridge) 2 mg IVPUSH Q4H PRN; Protocol PRN Reason: Pain, Severe (Pain Scale 7-10) Ondansetron HCl (Ondansetron Hcl 4 Mg/2 Ml Vial) 4 mg IVPUSH Q8H PRN PRN Reason: Nausea and Vomiting Oxycodone HCl (Oxycodone Hcl Immed Release 5 Mg Tablet) 5 mg PO Q6H PRN PRN Reason: Pain, Severe (Pain Scale 7-10) Pharmacy Consult (Consult Rx Perform Med Rec) 1 each MISCELLANE ONCE PRN PRN Reason: Consult order Pharmacy Consult (Consult Rx Vancomycin Dosing) 1 each MISCELLANE DAILY PRN PRN Reason: Consult order Sodium Chloride (0.9 % Sodium Chloride Flush 3 Ml Syringe) 3 ml IVFLUSH [facility] Home Medications Medication Instructions Recorded Confirmed Last Taken Type miscellaneous medical supply ea miscellaneous 10/25/21 01/17/22 Unknown History acetaminophen 500 mg tablet 1,000 mg PO DAILY PRN Pain, Mild 02/03/22 02/03/22 Unknown History Physical Exam Vital Signs and Narrative: Vital Signs: Last Vital Signs Temp 98.4 F 02/03/22 12:30 Pulse 76 02/03/22 12:30 Resp 16 02/03/22 12:30 BP 139/63 02/03/22 12:30 Pulse Ox 99 02/03/22 12:30 O2 Del Method 02/03/22 12:30 BMI result Body Mass Index 32.1 Const: General: cooperative, alert and awake Nutritional Appearance: overweight Orientation/consciousness: patient oriented x3 Resp: Other: Scattered wheezing Effort & Inspection: normal respiratory effort Auscultation: diminished lung sounds Cardio: Rate: regular rate Heart sounds: S1 normal heart sound present and S2 normal heart sound present GI: Inspection: No distended Palpation (GI): Soft to palpation and nontender Skin: Other: Neuro: General: patient oriented x3 and CN's II-XI intact bilaterally Results Labs CBC and Chem 7: 02/03/22 14:42 02/03/22 14:42 Labs: Laboratory Results - last 24 hr 02/03/22 02/03/22 02/03/22 14:42 14:42 14:42 MCV 98.0 MCH 31.0 MCHC 31.7 RDW 12.8 Plt Count 280 D MPV 9.3 L Immature Gran % (Auto) 0.2 Neut % (Auto) 60.4 Lymph % (Auto) 31.9 [place] % (Auto) 6.4 Eos % (Auto) 0.8 Baso % (Auto) 0.3 Lymph # (Auto) 2.8 [place] # (Auto) 0.6 Eos # (Auto) 0.1 Baso # (Auto) 0.0 Abs Immat Gran (auto) 0.02 Absolute Neuts (auto) 5.3 Absolute Nucleated RBC 0.000 Nucleated RBC % (auto) 0.0 Anion Gap 13 Estim Creat Clear Calc 105.8 Estimated GFR > 60 Random Glucose 89 Lactic Acid 0.9 Calcium 8.7 Total Bilirubin 0.4 Direct Bilirubin 0.2 AST 12 ALT 10 Alkaline Phosphatase 86 D Total Protein 6.5 Albumin 3.6 Lipase 25 COVID-19 ([facility]) COVID-19 Clin Com 02/03/22 14:42 MCV MCH MCHC RDW Plt Count MPV Immature Gran % (Auto) Neut % (Auto) Lymph % (Auto) [place] % (Auto) Eos % (Auto) Baso % (Auto) Lymph # (Auto) [place] # (Auto) Eos # (Auto) Baso # (Auto) Abs Immat Gran (auto) Absolute Neuts (auto) Absolute Nucleated RBC Nucleated RBC % (auto) Anion Gap Estim Creat Clear Calc Estimated GFR Random Glucose Lactic Acid Calcium Total Bilirubin Direct Bilirubin AST ALT Alkaline Phosphatase Total Protein Albumin Lipase COVID-19 ([facility]) Negative COVID-19 Clin Com See Note Imaging Radiologist's Impressions: Impressions Chest X-Ray 02/03/22 13:13 IMPRESSION: Linear opacity probably atelectasis at right lung base. Probably small subpulmonic pleural effusions. Tibia/Fibula X-Ray 02/03/22 13:13 IMPRESSION: Soft tissue calcification. No osseous changes to suggest osteomyelitis at this time. Assessment and Plan (1) Cellulitis of left leg: Status: Acute Plan This is a 69-year-old male with history of diabetes, COPD, hypertension, hyperlipidemia who presents to the emergency department with increasing swelling, redness, pain of his left lower extremity Left lower extremity cellulitis Circumferential cellulitis extending from knee and including entire foot Related to diabetes, venous stasis No evidence of sepsis -will continue IV vancomycin, Zosyn -ID consult -check ESR/CRP -local wound care -US to rule out DVT Type 2 diabetes Hemoglobin A1c in November was 5.5 -hold metformin, glipizide -SSI, POCs COPD Patient continues to actively smoke P.r.n. DuoNeb treatments Smoking cessation has been advised -nicotine replacement therapy Obesity BMI 32.1 Contributing to mobility issues Hypertension Continue lisinopril Hyperlipidemia Continue statin DVT prophylaxis-Lovenox Code status-full code Healthcare proxy friend Miguel Ángel aguilar Disposition-will need PT evaluation prior to discharge Given extent and severity of cellulitis as well as relative immunocompromise with history of diabetes patient will likely require at least 2 midnight stay in the hospital for further management of cellulitis with IV antibiotics Quality Stroke Does the patient have a stroke diagnosis?: No VTE Prior VTE?: No VTE Risk Level:: Medical - moderate - high VTE Device Contraindication: Treatment Not Indicated VTE Drug Contraindication: N/A - Med Ordered
--- NOTE | 2022-02-03 16:34 | PHA.MEDREC ---
Pharmacy Consult ? Medication Reconciliation Pharmacy has completed the medication reconciliation. SPOKE WITH PT. HE HAD A BAG OF THE RX BOTTLES HE TAKES.
[2022-02-03 17:10] LABS: Glucose, Whole Blood 74 mg/dL (60-115)
[2022-02-03 17:13] LABS: C Reactive Protein 0.92 mg/dL (< or = 0.50)
[2022-02-03 17:44] LABS: Erythrocyte Sedimentation Rate 25 MM/HR (0-15)
--- NOTE | 2022-02-03 18:30 | PC.NURSE ---
report given to DRE Hunter. pt will be transferred to room 350 by transporter. pt aware of plan.
[2022-02-03 19:52] VITALS: BMI 31.5
[2022-02-03 20:00] VITALS: BP 150/58; PULSE 89; RESP 15; TEMP 36.8; O2SAT 98
[2022-02-03] MEDS: Enoxaparin Sodium 40 MG/0.4 ML SYRINGE SUBCUT (20:21)
[2022-02-03] MEDS: 0.9 % Sodium Chloride Flush 3 ML SYRINGE IVFLUSH (20:22)
[2022-02-03] MEDS: Gabapentin 100 MG CAPSULE 200 MG PO (20:22)
[2022-02-03] MEDS: oxyCODONE HCl Immed Release 5 MG TABLET PO (20:22)
[2022-02-03 20:38] LABS: Glucose, Whole Blood 169 mg/dL (60-115)
[2022-02-03] MEDS: Insulin Lispro 100 UNIT/ML 3 ML VIAL SUBCUT (21:46)
[2022-02-03] MEDS: Piperacillin Sodium/Tazobactam 4.5 GM in 0.9 % Sodium Chloride 100 ML IV (22:17)
[2022-02-03 23:42] VITALS: BP 139/63; PULSE 76; RESP 17; TEMP 36.4; O2SAT 98
[2022-02-04] MEDS: oxyCODONE HCl Immed Release 5 MG TABLET PO ×4 (02:10→22:49)
[2022-02-04 04:00] VITALS: BP 138/67; PULSE 74; RESP 17; TEMP 36.3; O2SAT 97
[2022-02-04] MEDS: Piperacillin Sodium/Tazobactam 4.5 GM in 0.9 % Sodium Chloride 100 ML IV ×4 (05:13→22:49)
[2022-02-04 06:19] LABS: Hematocrit 40.2 % (42.0-52.0); Hemoglobin 12.8 g/dl (14.0-18.0); Mean Corpuscular HGB Conc 31.8 g/dl (31.0-36.0); Mean Corpuscular Hemoglobin 31.2 pg (27.0-33.0); Mean Platelet Volume 10.3 fL (9.4-12.4); Platelet Count 196 X10*3/uL (160-400); Red Cell Distribution Width 12.9 % (11.0-16.0); White Blood Count 8.4 X10*3/uL (4.8-10.8)
[2022-02-04 07:17] LABS: Glucose, Whole Blood 134 mg/dL (60-115)
[2022-02-04 07:41] VITALS: BP 140/63; PULSE 70; RESP 21; TEMP 36.9; O2SAT 97
[2022-02-04] MEDS: Pravastatin Sodium 40 MG TABLET PO (08:23)
[2022-02-04] MEDS: lisinopriL 20 MG TABLET PO (08:23)
[2022-02-04] MEDS: Aspirin Enteric Coated 81 MG TABLET.DR PO (08:23)
[2022-02-04] MEDS: Nicotine 14 MG PATCH.TD24 TRANSDERMA (08:24)
[2022-02-04] MEDS: Gabapentin 100 MG CAPSULE 200 MG PO ×3 (08:24→20:18)
[2022-02-04] MEDS: 0.9 % Sodium Chloride Flush 3 ML SYRINGE IVFLUSH ×2 (08:25→15:37)
[2022-02-04] MEDS: Acetaminophen 325 MG TABLET 650 MG PO (08:29)
[2022-02-04 08:37] LABS: Anion Gap 12 (12-20); Blood Urea Nitrogen 12 mg/dL (9-16); Calcium 8.7 mg/dL (8.4-10.2); Carbon Dioxide 28 mmol/L (22-29); Chloride 103 mmol/L (96-108); Creatinine Clr Calc Pharmacy 96.2; Estimated Glomerular Filt Rate > 60; Glucose Random 148 mg/dL (60-115); Potassium 4.8 mmol/L (3.3-5.1); Sodium 138 mmol/L (135-145)
--- NOTE | 2022-02-04 10:27 | P.PNIM_ITS ---
Subjective Subjective Date of Service: 02/04/22 Interval History: seen and examined this morning follow up for left leg cellulitis no overnight events denies fevers, chills; still having left leg pain Review of Systems Review of Systems: Yes all other systems are reviewed and are negative Constitutional Constitutional: Denies chills and Denies fever(s) ENT Ears, Nose, Mouth, and Throat: Denies dizziness Cardiovascular Cardiovascular: Denies chest pain, Denies palpitations and Denies dyspnea Respiratory Respiratory: Denies cough and Denies dyspnea Gastrointestinal Gastrointestinal: Denies abdominal pain, Denies nausea and Denies vomiting Neurologic Neurologic: Denies dizziness Endocrine Endocrine: Denies palpitations Physical Exam Vital Signs: Vital Signs: Last Vital Signs Temp 98.5 F 02/04/22 07:41 Pulse 70 02/04/22 07:41 Resp 21 H 02/04/22 07:41 BP 140/63 H 02/04/22 07:41 Pulse Ox 97 02/04/22 07:41 O2 Del Method 02/04/22 07:41 BMI result Body Mass Index 31.5 Const: General: cooperative, alert and awake Nutritional Appearance: overweight Orientation/consciousness: patient oriented x3 Resp: Other: Scattered wheezing Effort & Inspection: normal respiratory effort Auscultation: diminished lung sounds Cardio: Rate: regular rate Heart sounds: S1 normal heart sound present and S2 normal heart sound present GI: Inspection: No distended Palpation (GI): Soft to palpation and non tender Skin: Other: Neuro: General: patient oriented x3 and CN's II-XI intact bilaterally Objective Data Active Medications Acetaminophen (Acetaminophen 325 Mg Tablet) 650 mg PO Q6H PRN PRN Reason: Pain, Mild (Pain Scale 1-3) Last Admin: 02/04/22 08:29 Dose: 650 mg Documented By: MONTANA Albuterol/Ipratropium (Albuterol/Iprat 2.5/0.5mg 3 Ml Ampul.Neb) 3 ml INHALE Q6H PRN PRN Reason: Shortness of Breath/Wheezing Aspirin (Aspirin Enteric Coated 81 Mg Tablet.) 81 mg PO DAILY [facility] Last Admin: 02/04/22 08:23 Dose: 81 mg Documented By: MONTANA Dextrose (Dextrose 50 % 25 Gm/50 Ml Syringe) 25 gm IVPUSH Q15M PRN; Protocol PRN Reason: per Hypoglycemia Standing Ord. Docusate Sodium (Docusate Sodium 100 Mg Capsule) 100 mg PO DAILY PRN PRN Reason: Constipation Enoxaparin Sodium (Enoxaparin Sodium 40 Mg/0.4 Ml Syringe) 40 mg SUBCUT Q24H [facility] Last Admin: 02/03/22 20:21 Dose: 40 mg Documented By: JOHNATHAN Gabapentin (Gabapentin 100 Mg Capsule) 200 mg PO TID [facility] Last Admin: 02/04/22 08:24 Dose: 200 mg Documented By: MONTANA Glucose (Glucose Gel 15 Gm Gel..Gram.) 15 gm PO Q15M PRN; Protocol PRN Reason: per Hypoglycemia Standing Ord. Vancomycin HCl 1,000 mg/Vancomycin HCl 750 mg/ Sodium Chloride 535 mls @ 267.5 mls/hr IV Q24H [facility] Piperacillin Sod/Tazobactam (Sod 4.5 gm/ Sodium Chloride) 100 mls @ 200 mls/hr IV Q6H [facility] Last Infusion: 02/04/22 05:48 Dose: 0 mls/hr Documented By: JOHNATHAN Insulin Human Lispro (Insulin Lispro 100 Unit/Ml 3 Ml Vial) 0 unit SUBCUT QIDACHS [facility]; Protocol Last Admin: 02/04/22 08:26 Dose: Not Given Documented By: MONTANA Non-Admin Reason: No Insulin Coverage Lisinopril (Lisinopril 20 Mg Tablet) 20 mg PO DAILY [facility]; Protocol Last Admin: 02/04/22 08:23 Dose: 20 mg Documented By: MONTANA Morphine Sulfate (Morphine Sulfate 4 Mg/Ml Cartridge) 2 mg IVPUSH Q4H PRN; Protocol PRN Reason: Pain, Severe (Pain Scale 7-10) Nicotine (Nicotine 14 Mg Patch.Td24) 14 mg TRANSDERMA DAILY [facility] Last Admin: 02/04/22 08:24 Dose: 14 mg Documented By: MONTANA Ondansetron HCl (Ondansetron Hcl 4 Mg/2 Ml Vial) 4 mg IVPUSH Q8H PRN PRN Reason: Nausea and Vomiting Oxycodone HCl (Oxycodone Hcl Immed Release 5 Mg Tablet) 5 mg PO Q6H PRN PRN Reason: Pain, Severe (Pain Scale 7-10) Last Admin: 02/04/22 08:23 Dose: 5 mg Documented By: MONTANA Pharmacy Consult (Consult Rx Perform Med Rec) 1 each MISCELLANE ONCE PRN PRN Reason: Consult order Pharmacy Consult (Consult Rx Vancomycin Dosing) 1 each MISCELLANE DAILY PRN PRN Reason: Consult order Pravastatin Sodium (Pravastatin Sodium 40 Mg Tablet) 40 mg PO DAILY [facility] Last Admin: 02/04/22 08:23 Dose: 40 mg Documented By: MONTANA Sodium Chloride (0.9 % Sodium Chloride Flush 3 Ml Syringe) 3 ml IVFLUSH QSHIFT [facility] Last Admin: 02/04/22 08:25 Dose: 3 ml Documented By: MONTANA Labs CBC & Chem 7: 02/04/22 05:43 02/04/22 07:51 Labs: Laboratory Results - last 24 hr 02/03/22 02/03/22 02/03/22 14:42 14:42 14:42 MCV 98.0 MCH 31.0 MCHC 31.7 RDW 12.8 Plt Count 280 D MPV 9.3 L Immature Gran % (Auto) 0.2 Neut % (Auto) 60.4 Lymph % (Auto) 31.9 Callaway % (Auto) 6.4 Eos % (Auto) 0.8 Baso % (Auto) 0.3 Lymph # (Auto) 2.8 Callaway # (Auto) 0.6 Eos # (Auto) 0.1 Baso # (Auto) 0.0 Abs Immat Gran (auto) 0.02 Absolute Neuts (auto) 5.3 Absolute Nucleated RBC 0.000 Nucleated RBC % (auto) 0.0 ESR Anion Gap 13 Estim Creat Clear Calc 105.8 Estimated GFR > 60 POC Glucose Random Glucose 89 Lactic Acid 0.9 Calcium 8.7 Total Bilirubin 0.4 Direct Bilirubin 0.2 AST 12 ALT 10 Alkaline Phosphatase 86 D C-Reactive Protein 0.92 H Total Protein 6.5 Albumin 3.6 Lipase 25 COVID-19 (BREONNA) COVID-19 Clin Com 02/03/22 02/03/22 02/03/22 14:42 14:42 16:58 MCV MCH MCHC RDW Plt Count MPV Immature Gran % (Auto) Neut % (Auto) Lymph % (Auto) Callaway % (Auto) Eos % (Auto) Baso % (Auto) Lymph # (Auto) Callaway # (Auto) Eos # (Auto) Baso # (Auto) Abs Immat Gran (auto) Absolute Neuts (auto) Absolute Nucleated RBC Nucleated RBC % (auto) ESR 25 H Anion Gap Estim Creat Clear Calc Estimated GFR POC Glucose 74 Random Glucose Lactic Acid Calcium Total Bilirubin Direct Bilirubin AST ALT Alkaline Phosphatase C-Reactive Protein Total Protein Albumin Lipase COVID-19 (BREONNA) Negative COVID-19 Clin Com See Note 02/03/22 02/04/22 02/04/22 20:34 05:43 07:12 MCV 98.0 MCH 31.2 MCHC 31.8 RDW 12.9 Plt Count 196 D MPV 10.3 Immature Gran % (Auto) Neut % (Auto) Lymph % (Auto) Callaway % (Auto) Eos % (Auto) Baso % (Auto) Lymph # (Auto) Callaway # (Auto) Eos # (Auto) Baso # (Auto) Abs Immat Gran (auto) Absolute Neuts (auto) Absolute Nucleated RBC 0.000 Nucleated RBC % (auto) 0.0 ESR Anion Gap Estim Creat Clear Calc Estimated GFR POC Glucose 169 H 134 H Random Glucose Lactic Acid Calcium Total Bilirubin Direct Bilirubin AST ALT Alkaline Phosphatase C-Reactive Protein Total Protein Albumin Lipase COVID-19 (BREONNA) COVID-19 Clin Com 02/04/22 07:51 MCV MCH MCHC RDW Plt Count MPV Immature Gran % (Auto) Neut % (Auto) Lymph % (Auto) Callaway % (Auto) Eos % (Auto) Baso % (Auto) Lymph # (Auto) Callaway # (Auto) Eos # (Auto) Baso # (Auto) Abs Immat Gran (auto) Absolute Neuts (auto) Absolute Nucleated RBC Nucleated RBC % (auto) ESR Anion Gap 12 Estim Creat Clear Calc 96.2 Estimated GFR > 60 POC Glucose Random Glucose 148 H D Lactic Acid Calcium 8.7 Total Bilirubin Direct Bilirubin AST ALT Alkaline Phosphatase C-Reactive Protein Total Protein Albumin Lipase COVID-19 (BREONNA) COVID-19 [facility] Com Assessment and Plan (1) Cellulitis of left leg: Status: Acute (2) Leg ulcer, left: Status: Acute (3) Stasis edema of both lower extremities: Status: Acute Plan This is a 69-year-old male with history of diabetes, COPD, hypertension, hyperlipidemia who presents to the emergency department with increasing swelling, redness, pain of his left lower extremity Left lower extremity cellulitis Circumferential cellulitis extending from knee down and including entire foot Related to diabetes, venous stasis No evidence of sepsis US negative for DVT ESR 25, CRP 0.92 -continue IV vancomycin, Zosyn D#2 -ID consult pending -general surgery consult pending -Blood cultures pending -continue local wound care -pain control Type 2 diabetes Hemoglobin A1c in November was 5.5 -hold metformin, glipizide -SSI, POCs, ADA diet COPD Patient continues to actively smoke 1/2ppd P.r.n. DuoNeb treatments Smoking cessation has been advised -nicotine replacement therapy Obesity BMI 32.1 Contributing to mobility issues Hypertension Continue lisinopril Hyperlipidemia Continue statin DVT prophylaxis - Lovenox Code status - full code Healthcare proxy - friend Miguel Ángel aguilar Disposition-may need PT evaluation prior to discharge due to limited mobility Attending - Dr. Vaughn Patient requires ongoing inpatient stay to to severe left lower extremity cellulitis and need for IV antibiotics, ID and General surgery evaluation Quality Stroke Does the patient have a stroke diagnosis?: No VTE Prior VTE?: No VTE Risk Level:: Medical - moderate - high VTE Device Contraindication: Treatment Not Indicated VTE Drug Contraindication: N/A - Med Ordered
[2022-02-04 11:42] VITALS: BP 117/58; PULSE 66; RESP 18; TEMP 36.3; O2SAT 98
[2022-02-04 11:44] LABS: Glucose, Whole Blood 152 mg/dL (60-115)
--- NOTE | 2022-02-04 11:47 | HE.PHANOTE ---
Reviewed Vanco dosing on pt, found pt only had 1 gm dose 02/03/22. Changed orders to Q12H and adjusted the next vanco level.
[2022-02-04] MEDS: vancomycin HCL 1,000 MG in 0.9 % Sodium Chloride 250 ML 270 MG IV (12:11)
[2022-02-04] MEDS: Insulin Lispro 100 UNIT/ML 3 ML VIAL SUBCUT ×2 (12:13→20:18)
--- NOTE | 2022-02-04 13:53 | PM.CNGS ---
History of Present Illness Consult details Consult date: 02/04/22 Requesting physician: Jeannie Wynn Narrative: left leg cellulitis - 77 yo male getting wraps as outpt from [facility] and nurses didnt come to do dressings so pt asked for ifeerent company and when they did come and take down the dressing it was red nd nurse called ambulance to take him to the ER. admitted for cellulitis. pt denies arterial blood flow issues , has diabetes no previous wounds and no clots in the right lwg in the past although as a child he did break this leg. [facility] Past Medical History Medical History Benign essential hypertension CAD (coronary artery disease) COPD (chronic obstructive pulmonary disease) COPD (chronic obstructive pulmonary disease) Coronary artery disease Depression DM2 (diabetes mellitus, type 2) Erectile disorder due to medical condition in male HLD (hyperlipidemia) HTN (hypertension) Neuropathy Obesity (BMI 30-39.9) Obesity (BMI 30.0-34.9) FADY (obstructive sleep apnea) Primary osteoarthritis of both knees Psoriasis Pulmonary hypertension Pure hypercholesterolemia Type 2 diabetes mellitus with diabetic neuropathy, unspecified Vitamin D deficiency Family History Family History Father Medical history unknown Mother Cancer Surgical History Surgical History No pertinent past surgical history Social History Social History Household Members: None Housing: House Do you presently have visiting nurse or other home services: Yes (homemaker 3 hours of fridays) Alcohol intake: current Alcohol intake frequency: holidays/special occasions only Alcohol type: beer and wine Patient Tobacco Use Status: Current everyday Tobacco user Tobacco use type: Cigarette Cigarettes Per Day: 10 Years Smoked: 59 years e-Cigarette/Vaping Use: Never Used Second Hand Smoke Exposure: Yes Use of substances other than those prescribed or required for medical reasons: No Currently Displaying Signs/Symptoms of Drug Intoxication Withdrawal: No Have you been hit, kicked, punched, or otherwise hurt by someone within the past year? If so, by whom?: No Do you feel safe in your current relationship?: No Is there a partner from a previous relationship who is making you feel unsafe now?: No Are you made to feel afraid or neglected: No Advance Directives: Yes Advance Directives Information Provided: No Advance Directives on File: No Advance Directives Date on File: 02/03/22 Do you have thoughts of harming others: None Do you have a plan to hurt others: No Plan Recently lost weight without trying: No Eating poorly because of decreased appetite: No Nutrition Risks: No Nutritional Risk service: No Current occupational status: retired Cognitive needs: No Hearing needs: No Vision needs: No Meds Allergies Allergy/AdvReac Type Severity Reaction Status Date / Time Fish Containing Products Allergy Severe ANAPHYLAXIS Verified 01/17/22 09:59 shellfish derived Allergy Severe ANAPHYLAXIS Verified 01/17/22 09:59 Active Medications: Current Medications Acetaminophen (Acetaminophen 325 Mg Tablet) 650 mg PO Q6H PRN PRN Reason: Pain, Mild (Pain Scale 1-3) Last Admin: 02/04/22 08:29 Dose: 650 mg Albuterol/Ipratropium (Albuterol/Iprat 2.5/0.5mg 3 Ml Ampul.Neb) 3 ml INHALE Q6H PRN PRN Reason: Shortness of Breath/Wheezing Aspirin (Aspirin Enteric Coated 81 Mg Tablet.Dr) 81 mg PO DAILY [facility] Last Admin: 02/04/22 08:23 Dose: 81 mg Dextrose (Dextrose 50 % 25 Gm/50 Ml Syringe) 25 gm IVPUSH Q15M PRN; Protocol PRN Reason: per Hypoglycemia Standing Ord. Docusate Sodium (Docusate Sodium 100 Mg Capsule) 100 mg PO DAILY PRN PRN Reason: Constipation Enoxaparin Sodium (Enoxaparin Sodium 40 Mg/0.4 Ml Syringe) 40 mg SUBCUT Q24H [facility] Last Admin: 02/03/22 20:21 Dose: 40 mg Gabapentin (Gabapentin 100 Mg Capsule) 200 mg PO TID [facility] Last Admin: 02/04/22 08:24 Dose: 200 mg Glucose (Glucose Gel 15 Gm Gel..Gram.) 15 gm PO Q15M PRN; Protocol PRN Reason: per Hypoglycemia Standing Ord. Piperacillin Sod/Tazobactam (Sod 4.5 gm/ Sodium Chloride) 100 mls @ 200 mls/hr IV Q6H [facility] Last Infusion: 02/04/22 12:21 Dose: Infused Vancomycin HCl 1,000 mg/ (Sodium Chloride) 270 mls @ 270 mls/hr IV Q12H [facility] Last Infusion: 02/04/22 13:52 Dose: Infused Insulin Human Lispro (Insulin Lispro 100 Unit/Ml 3 Ml Vial) 0 unit SUBCUT QIDACHS [facility]; Protocol Last Admin: 02/04/22 12:13 Dose: 2 unit Lisinopril (Lisinopril 20 Mg Tablet) 20 mg PO DAILY [facility]; Protocol Last Admin: 02/04/22 08:23 Dose: 20 mg Morphine Sulfate (Morphine Sulfate 4 Mg/Ml Cartridge) 2 mg IVPUSH Q4H PRN; Protocol PRN Reason: Pain, Severe (Pain Scale 7-10) Nicotine (Nicotine 14 Mg Patch.Td24) 14 mg TRANSDERMA DAILY [facility] Last Admin: 02/04/22 08:24 Dose: 14 mg Nicotine Polacrilex (Nicotine Polacrilex 2 Mg Gum) 2 mg BUCCAL Q2H PRN PRN Reason: Nicotine Cravings Ondansetron HCl (Ondansetron Hcl 4 Mg/2 Ml Vial) 4 mg IVPUSH Q8H PRN PRN Reason: Nausea and Vomiting Oxycodone HCl (Oxycodone Hcl Immed Release 5 Mg Tablet) 5 mg PO Q6H PRN PRN Reason: Pain, Severe (Pain Scale 7-10) Last Admin: 02/04/22 08:23 Dose: 5 mg Pharmacy Consult (Consult Rx Perform Med Rec) 1 each MISCELLANE ONCE PRN PRN Reason: Consult order Pharmacy Consult (Consult Rx Vancomycin Dosing) 1 each MISCELLANE DAILY PRN PRN Reason: Consult order Pravastatin Sodium (Pravastatin Sodium 40 Mg Tablet) 40 mg PO DAILY [facility] Last Admin: 02/04/22 08:23 Dose: 40 mg Sodium Chloride (0.9 % Sodium Chloride Flush 3 Ml Syringe) 3 ml IVFLUSH QSHIFT [facility] Last Admin: 02/04/22 08:25 Dose: 3 ml Home Medications Medication Instructions Recorded Confirmed Last Taken Type miscellaneous medical supply ea miscellaneous 10/25/21 01/17/22 Unknown History acetaminophen 500 mg tablet 1,000 mg PO DAILY PRN Pain, Mild 02/03/22 02/03/22 Unknown History Physical Exam Vital Signs: Vital Signs: Last Vital Signs Temp 97.3 F 02/04/22 11:42 Pulse 66 02/04/22 11:42 Resp 18 02/04/22 11:42 BP 117/58 L 02/04/22 11:42 Pulse Ox 98 02/04/22 11:42 O2 Del Method 02/04/22 11:42 BMI result Body Mass Index 31.5 Skin: Other: left leg dry ant ulceration and left leg with dry cellulitis skin and tissue no true open wounds no weeping right palpable DP but not palpable on the left Results Labs Result diagrams: 02/04/22 05:43 02/04/22 07:51 Labs: Abnormal lab results 02/03/22 02/03/22 02/03/22 Range/Units 14:42 14:42 14:42 RBC 4.45 L (4.60-5.80) X10*6/uL Hgb 13.8 L (14.0-18.0) g/dl Hct (42.0-52.0) % MPV 9.3 L (9.4-12.4) fL ESR 25 H (0-15) MM/HR POC Glucose (60-115) mg/dL Random Glucose (60-115) mg/dL C-Reactive Protein 0.92 H (< or = 0.50) mg/dL 02/03/22 02/04/22 02/04/22 Range/Units 20:34 05:43 07:12 RBC 4.10 L (4.60-5.80) X10*6/uL Hgb 12.8 L (14.0-18.0) g/dl Hct 40.2 L (42.0-52.0) % MPV (9.4-12.4) fL ESR (0-15) MM/HR POC Glucose 169 H 134 H (60-115) mg/dL Random Glucose (60-115) mg/dL C-Reactive Protein (< or = 0.50) mg/dL 02/04/22 02/04/22 Range/Units 07:51 11:07 RBC (4.60-5.80) X10*6/uL Hgb (14.0-18.0) g/dl Hct (42.0-52.0) % MPV (9.4-12.4) fL ESR (0-15) MM/HR POC Glucose 152 H (60-115) mg/dL Random Glucose 148 H D (60-115) mg/dL C-Reactive Protein (< or = 0.50) mg/dL Short CBC 02/03/22 02/04/22 Range/Units 14:42 05:43 WBC 8.8 8.4 (4.8-10.8) X10*3/uL Hgb 13.8 L 12.8 L (14.0-18.0) g/dl Hct 43.6 40.2 L (42.0-52.0) % Plt Count 280 D 196 D (160-400) X10*3/uL BMP 02/03/22 02/04/22 14:42 07:51 Sodium 139 138 Potassium 4.5 4.8 Chloride 104 103 Carbon Dioxide 27 28 BUN 15 12 Creatinine 0.77 0.84 Calcium 8.7 8.7 Liver Function 02/03/22 Range/Units 14:42 Total Bilirubin 0.4 (0.0-1.0) mg/dL Direct Bilirubin 0.2 (0.0-0.5) mg/dL AST 12 (5-37) U/L ALT 10 (0-40) U/L Alkaline Phosphatase 86 D (39-117) U/L Albumin 3.6 (3.5-5.0) g/dL All other labs normal. Imaging Additional studies: doppler - no dvt Assessment and Plan (1) Cellulitis of left leg: Status: Acute Plan 77 year old male with left leg cellulitis -? history of venous stasis before and had too tight UNNA boot or something. leg and wound looks better now - no open areas no weeping - cont with antibiotics consider gentle wrap and once dc home should wear compression stockings or at least tubi early head start director Procedures Date of Service Date of Service: 02/04/22
[2022-02-04 15:47] VITALS: BP 129/60; PULSE 71; RESP 15; O2SAT 96
--- NOTE | 2022-02-04 16:14 | MHC.CM.PN ---
PT REPORTS HE LIVES ALONE AND IS TYPICALLY INDEPENDENT WITH CARE PT REPORTS HE HAS BEEN GETTING SERVICES THAT HE THINKS ARE FROM A VNA HE IS UNSURE OF THE NAME PER RECORDS, HE DISCHARGED WITH [facility] IN AUGUST REFERRAL SENT TO DETERMINE IF PT IS STILL ACTIVE PT REPORTS HIS PCP IS [facility] HE HAS A HCP NAMING HIS FRIEND LEATHA- COPY REQUESTED PT REPORTS HE HAS A CANE AND AN ELECTRIC W/C AT HOME, HE SAYS THE W/C IS NOT WORKING WELL THOUGH IMM DELIVERED PT IS NOT INTERESTED IN STR!! DCP HOME VS HOME WITH VNA PT WILL NEED CHAIR VAN
[2022-02-04 16:17] LABS: Glucose, Whole Blood 131 mg/dL (60-115)
[2022-02-04] MEDS: Enoxaparin Sodium 40 MG/0.4 ML SYRINGE SUBCUT (17:13)
--- NOTE | 2022-02-04 18:44 | PC.NURSE ---
Patients ledt leg washed with warm soap and water, kerlix and cabrera wrapped and elevated on pillow. Patient unable to bairweight on that foot. VERY unsteady and was a 1x assist with just standing.
[2022-02-04 19:13] VITALS: BP 122/60; PULSE 84; RESP 15; TEMP 36.4; O2SAT 95
[2022-02-04 19:55] LABS: Glucose, Whole Blood 151 mg/dL (60-115)
[2022-02-04 23:56] VITALS: BP 113/55; PULSE 66; RESP 16; TEMP 36.4; O2SAT 94
[2022-02-05] MEDS: vancomycin HCL 1,000 MG in 0.9 % Sodium Chloride 250 ML 270 MG IV (00:58)
[2022-02-05 03:45] VITALS: BP 116/58; PULSE 66; RESP 16; TEMP 36.3; O2SAT 94
[2022-02-05 06:18] LABS: Anion Gap 12 (12-20); Blood Urea Nitrogen 12 mg/dL (9-16); Calcium 8.6 mg/dL (8.4-10.2); Carbon Dioxide 28 mmol/L (22-29); Chloride 105 mmol/L (96-108); Creatinine Clr Calc Pharmacy 88.8; Estimated Glomerular Filt Rate > 60; Glucose Random 127 mg/dL (60-115); Potassium 4.3 mmol/L (3.3-5.1); Sodium 141 mmol/L (135-145)
[2022-02-05] MEDS: Piperacillin Sodium/Tazobactam 4.5 GM in 0.9 % Sodium Chloride 100 ML IV ×2 (06:33→11:16)
[2022-02-05] MEDS: oxyCODONE HCl Immed Release 5 MG TABLET PO ×2 (06:38→16:44)
[2022-02-05 07:15] VITALS: BP 135/61; PULSE 68; RESP 18; TEMP 36.6; O2SAT 96
[2022-02-05 07:26] LABS: Glucose, Whole Blood 132 mg/dL (60-115)
[2022-02-05] MEDS: Acetaminophen 325 MG TABLET 650 MG PO ×2 (08:00→16:44)
[2022-02-05] MEDS: Gabapentin 100 MG CAPSULE 200 MG PO ×3 (08:00→20:11)
[2022-02-05] MEDS: Pravastatin Sodium 40 MG TABLET PO (08:00)
[2022-02-05] MEDS: Aspirin Enteric Coated 81 MG TABLET.DR PO (08:00)
[2022-02-05] MEDS: lisinopriL 20 MG TABLET PO (08:00)
[2022-02-05] MEDS: 0.9 % Sodium Chloride Flush 3 ML SYRINGE IVFLUSH ×3 (08:01→20:16)
[2022-02-05] MEDS: Nicotine 14 MG PATCH.TD24 TRANSDERMA (08:01)
--- NOTE | 2022-02-05 09:30 | HO.PM.IMPN ---
Subjective Subjective Date of Service: 02/05/22 Review of Systems Follow up cellulitis doing better, no pain denied chest pain, sob Physical Exam Vital Signs: Vital Signs: Last Vital Signs Temp 97.8 F 02/05/22 07:15 Pulse 68 02/05/22 07:15 Resp 18 02/05/22 07:15 BP 135/61 02/05/22 07:15 Pulse Ox 96 02/05/22 07:15 O2 Del Method 02/05/22 07:15 BMI result Body Mass Index 31.5 Appearing in no acute distress lung sounds are clear to auscultation heart regular rate rhythm, clear S1, S2 positive bowel sounds, abdomen is soft, nontender neuro patient is alert x3, no focal deficits LLE wrapped in gauze and cabrera Objective Data Active Medications Acetaminophen (Acetaminophen 325 Mg Tablet) 650 mg PO Q6H PRN PRN Reason: Pain, Mild (Pain Scale 1-3) Last Admin: 02/05/22 08:00 Dose: 650 mg Documented By: WALLACE Albuterol/Ipratropium (Albuterol/Iprat 2.5/0.5mg 3 Ml Ampul.Neb) 3 ml INHALE Q6H PRN PRN Reason: Shortness of Breath/Wheezing Aspirin (Aspirin Enteric Coated 81 Mg Tablet.) 81 mg PO DAILY [facility] Last Admin: 02/05/22 08:00 Dose: 81 mg Documented By: WALLACE Dextrose (Dextrose 50 % 25 Gm/50 Ml Syringe) 25 gm IVPUSH Q15M PRN; Protocol PRN Reason: per Hypoglycemia Standing Ord. Docusate Sodium (Docusate Sodium 100 Mg Capsule) 100 mg PO DAILY PRN PRN Reason: Constipation Enoxaparin Sodium (Enoxaparin Sodium 40 Mg/0.4 Ml Syringe) 40 mg SUBCUT Q24H [facility] Last Admin: 02/04/22 17:13 Dose: 40 mg Documented By: MONTANA Gabapentin (Gabapentin 100 Mg Capsule) 200 mg PO TID [facility] Last Admin: 02/05/22 08:00 Dose: 200 mg Documented By: WALLACE Glucose (Glucose Gel 15 Gm Gel..Gram.) 15 gm PO Q15M PRN; Protocol PRN Reason: per Hypoglycemia Standing Ord. Piperacillin Sod/Tazobactam (Sod 4.5 gm/ Sodium Chloride) 100 mls @ 200 mls/hr IV Q6H [facility] Last Infusion: 02/05/22 08:03 Dose: 0 mls/hr Documented By: WALLACE Vancomycin HCl 1,000 mg/ (Sodium Chloride) 270 mls @ 270 mls/hr IV Q12H [facility] Last Infusion: 02/05/22 02:36 Dose: 270 mls/hr Documented By: RAYMUNDO Insulin Human Lispro (Insulin Lispro 100 Unit/Ml 3 Ml Vial) 0 unit SUBCUT QIDACHS [facility]; Protocol Last Admin: 02/05/22 07:41 Dose: Not Given Documented By: WALLACE Non-Admin Reason: No Insulin Coverage Lisinopril (Lisinopril 20 Mg Tablet) 20 mg PO DAILY [facility]; Protocol Last Admin: 02/05/22 08:00 Dose: 20 mg Documented By: WALLACE Morphine Sulfate (Morphine Sulfate 4 Mg/Ml Cartridge) 2 mg IVPUSH Q4H PRN; Protocol PRN Reason: Pain, Severe (Pain Scale 7-10) Nicotine (Nicotine 14 Mg Patch.Td24) 14 mg TRANSDERMA DAILY [facility] Last Admin: 02/05/22 08:01 Dose: 14 mg Documented By: WALLACE Nicotine Polacrilex (Nicotine Polacrilex 2 Mg Gum) 2 mg BUCCAL Q2H PRN PRN Reason: Nicotine Cravings Ondansetron HCl (Ondansetron Hcl 4 Mg/2 Ml Vial) 4 mg IVPUSH Q8H PRN PRN Reason: Nausea and Vomiting Oxycodone HCl (Oxycodone Hcl Immed Release 5 Mg Tablet) 5 mg PO Q6H PRN PRN Reason: Pain, Severe (Pain Scale 7-10) Last Admin: 02/05/22 06:38 Dose: 5 mg Documented By: RAYMUNDO Pharmacy Consult (Consult Rx Perform Med Rec) 1 each MISCELLANE ONCE PRN PRN Reason: Consult order Pharmacy Consult (Consult Rx Vancomycin Dosing) 1 each MISCELLANE DAILY PRN PRN Reason: Consult order Pravastatin Sodium (Pravastatin Sodium 40 Mg Tablet) 40 mg PO DAILY [facility] Last Admin: 02/05/22 08:00 Dose: 40 mg Documented By: WALLACE Sodium Chloride (0.9 % Sodium Chloride Flush 3 Ml Syringe) 3 ml IVFLUSH QSHIFT [facility] Last Admin: 02/05/22 08:01 Dose: 3 ml Documented By: WALLACE Labs CBC & Chem 7: 02/04/22 05:43 02/05/22 05:08 Labs: Laboratory Results - last 24 hr 02/04/22 02/04/22 02/04/22 11:07 15:51 19:16 Anion Gap Estim Creat Clear Calc Estimated GFR POC Glucose 152 H 131 H 151 H Random Glucose Calcium 02/05/22 02/05/22 05:08 07:21 Anion Gap 12 Estim Creat Clear Calc 88.8 Estimated GFR > 60 POC Glucose 132 H Random Glucose 127 H Calcium 8.6 Microbiology Microbiology Results: Microbiology 02/03/22 14:42 Blood Culture - Preliminary Blood - Venous No growth after 24 hours. 02/03/22 14:42 Blood Culture - Preliminary Blood - Venous No growth after 24 hours. Assessment and Plan (1) Cellulitis of left leg: Status: Acute (2) Leg ulcer, left: Status: Acute (3) Stasis edema of both lower extremities: Status: Acute Plan This is a 69-year-old male with history of diabetes, COPD, hypertension, hyperlipidemia who presents to the emergency department with increasing swelling, redness, pain of his left lower extremity Left lower extremity cellulitis secondary to diabetes, venous stasis Circumferential cellulitis extending from knee down and including entire foot US negative for DVT continue IV vancomycin, Zosyn ID consult pending seen and evaluated by general surgery with rec to continue current tx Blood cultures pending continue local wound care Type 2 diabetes SSI, POCs, ADA diet COPD Patient continues to actively smoke 1/2ppd P.r.n. DuoNeb treatments Smoker Smoking cessation has been advised nicotine replacement therapy Obesity BMI 32.1 Contributing to mobility issues Hypertension Continue lisinopril Hyperlipidemia Continue statin DVT prophylaxis - Lovenox Code status - full code Healthcare proxy - friend Miguel Ángel aguilar Attending - Dr. Hong Patient requires ongoing inpatient stay to to severe left lower extremity cellulitis and need for IV antibiotics, pending ID evaluation Quality Stroke Does the patient have a stroke diagnosis?: No VTE Prior VTE?: No VTE Risk Level:: Medical - moderate - high VTE Device Contraindication: Treatment Not Indicated VTE Drug Contraindication: N/A - Med Ordered
[2022-02-05 10:52] VITALS: BP 103/55; PULSE 67; RESP 18; TEMP 36.2; O2SAT 93
[2022-02-05 11:07] LABS: Glucose, Whole Blood 201 mg/dL (60-115)
[2022-02-05] MEDS: Insulin Lispro 100 UNIT/ML 3 ML VIAL SUBCUT (11:16)
--- NOTE | 2022-02-05 11:30 | HE.PHANOTE ---
Vancomycin Dosing Addendum Patient's renal function has been slowly declining while on vanco, 0.77 --> 0.84 --> 0.91. However, patient's trough came back this morning at 9. Patient is subtherapeutic at this time. Increasing dose to 1250mg Q12H to get patient therapeutic. Renal function is monitored daily by pharmacy. To ensure safety, level is to be drawn at 08/30 @ 1100 right before the third dose. Predicted AUC 521 mg/L/hr.
--- NOTE | 2022-02-05 12:37 | MHC.CLN ---
NUTRITION PATIENT WITH VENOUS STASIS ULCER LEFT LOWER LEG. DIET=DIABETIC 1800 KCAL. NO ADDITIONAL NUTRITION INTERVENTIONS AT THIS TIME.
--- NOTE | 2022-02-05 13:38 | P.CNID_ITS ---
History of Present Illness Data of Consult Service Date: 02/05/22 Requesting physician: Antonella Figueroa Primary Care Provider: Billy Longoria MD HPI Reason for consult: LLE cellulitis,recurrent He presents with LLE erythema started about 10 days ago. He does have open area mid shaft tib/fib. He has no fever or chills. He took Augmentin one week ago and finished three days ago. I had seen patient in August 2021 and he received seven days of Vancomycin and then seven days Doxycycline po at home. He doesnt report any episodes of cellulitis since then. Review of Systems Review of Systems: Yes all other systems are reviewed and are negative PMFSH Past Medical History Medical History Benign essential hypertension CAD (coronary artery disease) COPD (chronic obstructive pulmonary disease) COPD (chronic obstructive pulmonary disease) Coronary artery disease Depression DM2 (diabetes mellitus, type 2) Erectile disorder due to medical condition in male HLD (hyperlipidemia) HTN (hypertension) Neuropathy Obesity (BMI 30-39.9) Obesity (BMI 30.0-34.9) FADY (obstructive sleep apnea) Primary osteoarthritis of both knees Psoriasis Pulmonary hypertension Pure hypercholesterolemia Type 2 diabetes mellitus with diabetic neuropathy, unspecified Vitamin D deficiency Family History Family History Father Medical history unknown Mother Cancer Family history: reviewed and not pertinent Surgical History Surgical History No pertinent past surgical history Social History Social History Household Members: None Housing: House Do you presently have visiting nurse or other home services: Yes (homemaker 3 hours of fridays) Alcohol intake: current Alcohol intake frequency: holidays/special occasions only Alcohol type: beer and wine Patient Tobacco Use Status: Current everyday Tobacco user Tobacco use type: Cigarette Cigarettes Per Day: 10 Years Smoked: 59 years e-Cigarette/Vaping Use: Never Used Second Hand Smoke Exposure: Yes Advance Directives Date on File: 02/03/22 service: No Current occupational status: retired Cognitive needs: No Hearing needs: No Vision needs: No Meds Allergies Allergy/AdvReac Type Severity Reaction Status Date / Time Fish Containing Products Allergy Severe ANAPHYLAXIS Verified 01/17/22 09:59 shellfish derived Allergy Severe ANAPHYLAXIS Verified 01/17/22 09:59 Active Medications: Current Medications Acetaminophen (Acetaminophen 325 Mg Tablet) 650 mg PO Q6H PRN PRN Reason: Pain, Mild (Pain Scale 1-3) Last Admin: 02/05/22 08:00 Dose: 650 mg Albuterol/Ipratropium (Albuterol/Iprat 2.5/0.5mg 3 Ml Ampul.Neb) 3 ml INHALE Q6H PRN PRN Reason: Shortness of Breath/Wheezing Aspirin (Aspirin Enteric Coated 81 Mg Tablet.Dr) 81 mg PO DAILY [facility] Last Admin: 02/05/22 08:00 Dose: 81 mg Dextrose (Dextrose 50 % 25 Gm/50 Ml Syringe) 25 gm IVPUSH Q15M PRN; Protocol PRN Reason: per Hypoglycemia Standing Ord. Docusate Sodium (Docusate Sodium 100 Mg Capsule) 100 mg PO DAILY PRN PRN Reason: Constipation Enoxaparin Sodium (Enoxaparin Sodium 40 Mg/0.4 Ml Syringe) 40 mg SUBCUT Q24H [facility] Last Admin: 02/04/22 17:13 Dose: 40 mg Gabapentin (Gabapentin 100 Mg Capsule) 200 mg PO TID [facility] Last Admin: 02/05/22 08:00 Dose: 200 mg Glucose (Glucose Gel 15 Gm Gel..Gram.) 15 gm PO Q15M PRN; Protocol PRN Reason: per Hypoglycemia Standing Ord. Piperacillin Sod/Tazobactam (Sod 4.5 gm/ Sodium Chloride) 100 mls @ 200 mls/hr IV Q6H [facility] Last Infusion: 02/05/22 11:58 Dose: Infused Vancomycin HCl 1,250 mg/ (Sodium Chloride) 250 mls @ 166.667 mls/hr IV Q12H [facility] Insulin Human Lispro (Insulin Lispro 100 Unit/Ml 3 Ml Vial) 0 unit SUBCUT QIDACHS [facility]; Protocol Last Admin: 02/05/22 11:16 Dose: 4 unit Lisinopril (Lisinopril 20 Mg Tablet) 20 mg PO DAILY [facility]; Protocol Last Admin: 02/05/22 08:00 Dose: 20 mg Morphine Sulfate (Morphine Sulfate 4 Mg/Ml Cartridge) 2 mg IVPUSH Q4H PRN; Protocol PRN Reason: Pain, Severe (Pain Scale 7-10) Nicotine (Nicotine 14 Mg Patch.Td24) 14 mg TRANSDERMA DAILY [facility] Last Admin: 02/05/22 08:01 Dose: 14 mg Nicotine Polacrilex (Nicotine Polacrilex 2 Mg Gum) 2 mg BUCCAL Q2H PRN PRN Reason: Nicotine Cravings Ondansetron HCl (Ondansetron Hcl 4 Mg/2 Ml Vial) 4 mg IVPUSH Q8H PRN PRN Reason: Nausea and Vomiting Oxycodone HCl (Oxycodone Hcl Immed Release 5 Mg Tablet) 5 mg PO Q6H PRN PRN Reason: Pain, Severe (Pain Scale 7-10) Last Admin: 02/05/22 06:38 Dose: 5 mg Pharmacy Consult (Consult Rx Perform Med Rec) 1 each MISCELLANE ONCE PRN PRN Reason: Consult order Pharmacy Consult (Consult Rx Vancomycin Dosing) 1 each MISCELLANE DAILY PRN PRN Reason: Consult order Pravastatin Sodium (Pravastatin Sodium 40 Mg Tablet) 40 mg PO DAILY [facility] Last Admin: 02/05/22 08:00 Dose: 40 mg Sodium Chloride (0.9 % Sodium Chloride Flush 3 Ml Syringe) 3 ml IVFLUSH QSHIFT [facility] Last Admin: 02/05/22 08:01 Dose: 3 ml Home Medications Medication Instructions Recorded Confirmed Last Taken Type miscellaneous medical supply ea miscellaneous 10/25/21 01/17/22 Unknown History acetaminophen 500 mg tablet 1,000 mg PO DAILY PRN Pain, Mild 02/03/22 02/03/22 Unknown History Physical Exam Vital Signs: Vital Signs: Last Vital Signs Temp 97.2 F 02/05/22 10:52 Pulse 67 02/05/22 10:52 Resp 02/05/22 10:52 BP 103/55 L 02/05/22 10:52 Pulse Ox 93 02/05/22 10:52 O2 Del Method 02/05/22 10:52 BMI result Body Mass Index 31.5 Const: General: cooperative HEENT: Head: Yes normal to inspection Face and sinus: Yes normal facial exam Mouth: Normal oral and palatal mucosa present Teeth and gingiva: dentition normal Eyes: General: appearance normal, both eyes and all related structures Pupils: Equal, round and reactive pupils present Resp: Effort & Inspection: normal respiratory effort Cardio: Rate: regular rate Rhythm: regular rhythm GI: Palpation (GI): Soft to palpation and nontender : General: Yes no CVA tenderness Back/Spine/Pelvis: Back: no CVA tenderness Skin: General skin exam: no rashes or lesions noted Neuro: General: moves all extremities Cranial nerves: Yes Equal, round and reactive pupils present Extrem: Other: reddened left leg with central open area,about 3 x 5cm General: Yes normal to inspection Psych: Appearance: grossly normal Results Labs CBC & Chem 7: 02/04/22 05:43 02/05/22 05:08 Labs: BMP 02/05/22 05:08 Sodium 141 Potassium 4.3 Chloride 105 Carbon Dioxide 28 BUN 12 Creatinine 0.91 Calcium 8.6 Microbiology Microbiology Results: Microbiology 02/03/22 14:42 Blood - Venous Blood Culture - Preliminary No growth after 24 hours. 02/03/22 14:42 Blood - Venous Blood Culture - Preliminary No growth after 24 hours. Assessment and Plan (1) Cellulitis of left leg: Status: Acute He likely has gram positive bacteria,staph or strep He did respond well to IV Vancomycin last time He has open area leg leading to infection likely Plan IV Vancomycin for possible 7 days total Can hold piperacillin/tazobactam at this time He doesnt get exacerbations enough for preventive PCN V 250 bid but can consider Would try to heal open wound/venous stasis, so would advise Wound Clinic outpatient.
[2022-02-05] MEDS: vancomycin HCL 1,250 MG in 0.9 % Sodium Chloride 250 ML 166.67 MG IV (13:59)
--- NOTE | 2022-02-05 14:07 | MHC.CM.PN ---
CM RECEIVED CALL FROM ANA LUISA Anderson, OF [facility] [place], REPORTS PATIENT IS ACTIVE WITH [facility]. SHE REPORTS PATIENT TENDS TO HAVE INAPPROPRIATE BEHAVIORS WHEN ASKED WHAT THAT MEANS SHE STATED (SHOWING [facility] NURSES PORN AND INAPPROPRIATELY TOUCHING THEM, EVEN WHEN TOLD TO STOP AND SIGNING AN AGREEMENT TO STOP ENGAGING IN SUCH BEHAVIORS. PATIENT WAS DISCHARGED FROM [facility] DUE TO STATED BEHAVIORS.
[2022-02-05 15:29] VITALS: BP 112/68; PULSE 71; RESP 20; TEMP 36.3; O2SAT 95
[2022-02-05 15:55] LABS: Glucose, Whole Blood 93 mg/dL (60-115)
[2022-02-05] MEDS: Enoxaparin Sodium 40 MG/0.4 ML SYRINGE SUBCUT (17:55)
[2022-02-05 19:48] VITALS: BP 110/48; PULSE 67; RESP 17; TEMP 36.2; O2SAT 95
[2022-02-05 20:17] LABS: Glucose, Whole Blood 139 mg/dL (60-115)
[2022-02-05 23:23] VITALS: BP 120/54; PULSE 70; RESP 17; TEMP 37.1; O2SAT 94
[2022-02-06] MEDS: oxyCODONE HCl Immed Release 5 MG TABLET PO ×3 (00:48→18:08)
[2022-02-06] MEDS: vancomycin HCL 1,250 MG in 0.9 % Sodium Chloride 250 ML 166.66 MG IV ×2 (00:59→13:05)
[2022-02-06 03:18] VITALS: BP 132/60; PULSE 63; RESP 18; TEMP 36.4; O2SAT 96
[2022-02-06 07:36] LABS: Glucose, Whole Blood 128 mg/dL (60-115)
[2022-02-06 07:46] VITALS: BP 116/47; PULSE 67; RESP 15; TEMP 36.5; O2SAT 94
[2022-02-06] MEDS: Aspirin Enteric Coated 81 MG TABLET.DR PO (07:52)
[2022-02-06] MEDS: Gabapentin 100 MG CAPSULE 200 MG PO ×3 (07:52→20:16)
[2022-02-06] MEDS: lisinopriL 20 MG TABLET PO (07:52)
[2022-02-06] MEDS: Pravastatin Sodium 40 MG TABLET PO (07:52)
[2022-02-06] MEDS: Nicotine 14 MG PATCH.TD24 TRANSDERMA (07:53)
--- NOTE | 2022-02-06 08:42 | HO.PM.IMPN ---
Subjective Subjective Date of Service: 02/10/22 Review of Systems Follow up cellulitis doing better, still with some pain denied chest pain, sob Physical Exam Vital Signs: Vital Signs: Last Vital Signs Temp 97.7 F 02/06/22 07:46 Pulse 67 02/06/22 07:46 Resp 15 02/06/22 07:46 BP 116/47 L 02/06/22 07:46 Pulse Ox 94 02/06/22 07:46 O2 Del Method 02/06/22 07:46 BMI result Body Mass Index 31.5 Appearing in no acute distress lung sounds are clear to auscultation heart regular rate rhythm, clear S1, S2 positive bowel sounds, abdomen is soft, nontender neuro patient is alert x3, no focal deficits Circumferential cellulitis extending from knee down and including entire foot Objective Data Active Medications Acetaminophen (Acetaminophen 325 Mg Tablet) 650 mg PO Q6H PRN PRN Reason: Pain, Mild (Pain Scale 1-3) Last Admin: 02/05/22 16:44 Dose: 650 mg Documented By: WALLACE Albuterol/Ipratropium (Albuterol/Iprat 2.5/0.5mg 3 Ml Ampul.Neb) 3 ml INHALE Q6H PRN PRN Reason: Shortness of Breath/Wheezing Aspirin (Aspirin Enteric Coated 81 Mg Tablet.Dr) 81 mg PO DAILY [facility] Last Admin: 02/06/22 07:52 Dose: 81 mg Documented By: HITESH Dextrose (Dextrose 50 % 25 Gm/50 Ml Syringe) 25 gm IVPUSH Q15M PRN; Protocol PRN Reason: per Hypoglycemia Standing Ord. Docusate Sodium (Docusate Sodium 100 Mg Capsule) 100 mg PO DAILY PRN PRN Reason: Constipation Enoxaparin Sodium (Enoxaparin Sodium 40 Mg/0.4 Ml Syringe) 40 mg SUBCUT Q24H [facility] Last Admin: 02/05/22 17:55 Dose: 40 mg Documented By: WALLACE Gabapentin (Gabapentin 100 Mg Capsule) 200 mg PO TID [facility] Last Admin: 02/06/22 07:52 Dose: 200 mg Documented By: HITESH Glucose (Glucose Gel 15 Gm Gel..Gram.) 15 gm PO Q15M PRN; Protocol PRN Reason: per Hypoglycemia Standing Ord. Vancomycin HCl 1,250 mg/ (Sodium Chloride) 250 mls @ 166.667 mls/hr IV Q12H [facility] Last Infusion: 02/06/22 02:36 Dose: 166.66 mls/hr Documented By: RAYMUNDO Insulin Human Lispro (Insulin Lispro 100 Unit/Ml 3 Ml Vial) 0 unit SUBCUT QIDACHS [facility]; Protocol Last Admin: 02/06/22 07:42 Dose: Not Given Documented By: HITESH Non-Admin Reason: No Insulin Coverage Lisinopril (Lisinopril 20 Mg Tablet) 20 mg PO DAILY [facility]; Protocol Last Admin: 02/06/22 07:52 Dose: 20 mg Documented By: HITESH Morphine Sulfate (Morphine Sulfate 4 Mg/Ml Cartridge) 2 mg IVPUSH Q4H PRN; Protocol PRN Reason: Pain, Severe (Pain Scale 7-10) Nicotine (Nicotine 14 Mg Patch.Td24) 14 mg TRANSDERMA DAILY [facility] Last Admin: 02/06/22 07:53 Dose: 14 mg Documented By: HITESH Nicotine Polacrilex (Nicotine Polacrilex 2 Mg Gum) 2 mg BUCCAL Q2H PRN PRN Reason: Nicotine Cravings Ondansetron HCl (Ondansetron Hcl 4 Mg/2 Ml Vial) 4 mg IVPUSH Q8H PRN PRN Reason: Nausea and Vomiting Oxycodone HCl (Oxycodone Hcl Immed Release 5 Mg Tablet) 5 mg PO Q6H PRN PRN Reason: Pain, Severe (Pain Scale 7-10) Last Admin: 02/06/22 00:48 Dose: 5 mg Documented By: RAYMUNDO Pharmacy Consult (Consult Rx Perform Med Rec) 1 each MISCELLANE ONCE PRN PRN Reason: Consult order Pharmacy Consult (Consult Rx Vancomycin Dosing) 1 each MISCELLANE DAILY PRN PRN Reason: Consult order Pravastatin Sodium (Pravastatin Sodium 40 Mg Tablet) 40 mg PO DAILY [facility] Last Admin: 02/06/22 07:52 Dose: 40 mg Documented By: HITESH Sodium Chloride (0.9 % Sodium Chloride Flush 3 Ml Syringe) 3 ml IVFLUSH QSHIFT [facility] Last Admin: 02/06/22 07:57 Dose: Not Given Documented By: HITESH Non-Admin Reason: No Access Labs CBC & Chem 7: 02/08/22 06:08 02/10/22 05:53 Labs: Laboratory Results - last 24 hr 08/29/22 08/29/22 08/29/22 10:28 10:49 15:25 POC Glucose 201 H 93 Vancomycin Trough 9.0 L 02/05/22 02/06/22 20:01 07:19 POC Glucose 139 H 128 H Vancomycin Trough Microbiology Microbiology Results: Microbiology 02/03/22 14:42 Blood Culture - Preliminary Blood - Venous No growth after 48 hours. 02/03/22 14:42 Blood Culture - Preliminary Blood - Venous No growth after 48 hours. Assessment and Plan (1) Cellulitis of left leg: Status: Acute (2) Leg ulcer, left: Status: Acute (3) Stasis edema of both lower extremities: Status: Acute Plan This is a 69-year-old male with history of diabetes, COPD, hypertension, hyperlipidemia who presents to the emergency department with increasing swelling, redness, pain of his left lower extremity Left lower extremity cellulitis secondary to diabetes, venous stasis Circumferential cellulitis extending from knee down and including entire foot US negative for DVT continue IV vancomycin total 7days as per ID seen and evaluated by general surgery with rec to continue current tx Blood cultures neg continue local wound care, refer to wound clinic o/p Type 2 diabetes SSI, POCs, ADA diet COPD Patient continues to actively smoke 1/2ppd P.r.n. DuoNeb treatments Smoker Smoking cessation has been advised nicotine replacement therapy Obesity BMI 32.1 Contributing to mobility issues Hypertension Continue lisinopril Hyperlipidemia Continue statin DVT prophylaxis - Lovenox Code status - full code Healthcare proxy - friend Miguel Ángel aguilar Attending - Dr. Hong Patient requires ongoing inpatient stay to to severe left lower extremity cellulitis and need for IV antibiotics Quality Stroke Does the patient have a stroke diagnosis?: No VTE Prior VTE?: No VTE Risk Level:: Medical - moderate - high VTE Device Contraindication: Treatment Not Indicated VTE Drug Contraindication: N/A - Med Ordered
[2022-02-06 10:55] LABS: Vancomycin Random 16.1 mcg/mL (15-20)
[2022-02-06 11:28] LABS: Glucose, Whole Blood 194 mg/dL (60-115)
[2022-02-06 11:31] VITALS: BP 92/37; PULSE 66; RESP 15; TEMP 36.4; O2SAT 94
[2022-02-06] MEDS: Insulin Lispro 100 UNIT/ML 3 ML VIAL SUBCUT ×3 (11:39→20:20)
[2022-02-06 11:41] LABS: Creatinine Clr Calc Pharmacy 98.5; Estimated Glomerular Filt Rate > 60
--- NOTE | 2022-02-06 13:20 | PC.NURSE ---
Addendum entered by Ave Avalos RN 02/06/22 13:22: [phone] sons contact information Original Note: pt stated okay for RN to give update on status to son. Son's name Colby Brody.
--- NOTE | 2022-02-06 13:46 | PM.IDPN ---
Subjective Subjective Date of Service: 02/06/22 Critical Care Time (minutes): 15 Comment: he has improving left leg Objective Data Labs CBC & Chem 7: 02/04/22 05:43 02/06/22 10:24 Labs: Laboratory Results - last 24 hr 02/05/22 02/05/22 02/06/22 15:25 20:01 07:19 Creatinine Estim Creat Clear Calc Estimated GFR POC Glucose 93 139 H 128 H Random Vancomycin 02/06/22 02/06/22 02/06/22 10:24 10:24 11:23 Creatinine 0.82 Estim Creat Clear Calc 98.5 Estimated GFR > 60 POC Glucose 194 H Random Vancomycin 16.1 Microbiology Microbiology Results: Microbiology 02/03/22 14:42 Blood - Venous Blood Culture - Preliminary No growth after 48 hours. 02/03/22 14:42 Blood - Venous Blood Culture - Preliminary No growth after 48 hours. Physical Exam Vital Signs: Vital Signs: Last Vital Signs Temp 97.6 F 02/06/22 11:31 Pulse 66 02/06/22 11:31 Resp 15 02/06/22 11:31 BP 92/37 L 02/06/22 11:31 Pulse Ox 94 02/06/22 11:31 O2 Del Method 02/06/22 11:31 BMI result Body Mass Index 31.5 Const: General: cooperative HEENT: Head: Yes normal to inspection Mouth: Normal oral and palatal mucosa present Resp: Effort & Inspection: normal respiratory effort Cardio: Rate: regular rate Rhythm: regular rhythm GI: Palpation (GI): Soft to palpation and nontender Extrem: Other: improved left leg Assessment and Plan Assessment and plan (1) Cellulitis of left leg: Problem details: he has improving cellulitis Status: Acute Plan Would finish Vancomycin for seven days and then po per previous note. Time Spent With Patient Time: Total time spent is greater than 50% in coordination of care (as documented) at patient's floor/unit and/or counseling patient:
--- NOTE | 2022-02-06 13:52 | MHC.CM.PN ---
PATIENT IS WITH [facility], THEY HAVE BEEN UPDATED. ANA LUISA FROM [employer] ALSO UPDATED ON [facility]. CM RECEIVED CALL FROM PATIENT'S SON, IRISH [phone], REGARDING HIS CONCERNS WITH [facility]. HE WAS ADVISED TO CONTACT [facility] WITH HIS CONCERNS; HOWEVER, PATIENT WAS ASKED ABOUT HIS ENCOUNTERS WITH THE [facility] AND HE REPORTED HE DIDN'T HAVE ANY CONCERNS AND LIKES THE AGENCY. HE UNDERSTOOD HE WOULD BE STAYING WITH THE AGENCY UPON DISCHARGE. CM ADVISED SON TO SPEAK WITH HIS FATHER ABOUT HIS CONCERNS. IRISH WOULD LIKE TO RECEIVE A CALL IF ANYTHING CHANGES FOR THE WORSE.
--- NOTE | 2022-02-06 13:54 | HE.PHANOTE ---
RE VANCO TROUGH WAS 16.1 TODAY AND SCR DROPPED TO 0.82. CONTINUE CURRENT DOSE BUT I WILL GET A RANDOM LEVEL AFTER 2 DOSES ON 02/07 @1100. MAY NEED TO LOWER DOSE
[2022-02-06 15:20] VITALS: BP 120/59; PULSE 58; RESP 18; TEMP 36.3; O2SAT 95
[2022-02-06 16:29] LABS: Glucose, Whole Blood 117 mg/dL (60-115)
[2022-02-06] MEDS: Enoxaparin Sodium 40 MG/0.4 ML SYRINGE SUBCUT (18:08)
[2022-02-06] MEDS: 0.9 % Sodium Chloride Flush 3 ML SYRINGE IVFLUSH (18:11)
[2022-02-06 19:31] VITALS: BP 110/43; PULSE 68; RESP 16; TEMP 37.3; O2SAT 93
[2022-02-06 19:53] LABS: Glucose, Whole Blood 151 mg/dL (60-115)
[2022-02-07] VITALS (8 sets, daily range): BP systolic 110–126; BP diastolic 48–72; PULSE 54–73; RESP 16–18; TEMP 36.4–37.1; O2SAT 93–97
[2022-02-07] MEDS: vancomycin HCL 1,250 MG in 0.9 % Sodium Chloride 250 ML 166.67 MG IV ×2 (00:27→22:07)
[2022-02-07] MEDS: oxyCODONE HCl Immed Release 5 MG TABLET PO ×4 (00:39→22:07)
[2022-02-07 06:48] LABS: Anion Gap 13 (12-20); Blood Urea Nitrogen 19 mg/dL (9-16); Calcium 8.2 mg/dL (8.4-10.2); Carbon Dioxide 26 mmol/L (22-29); Chloride 104 mmol/L (96-108); Creatinine Clr Calc Pharmacy 87.8; Estimated Glomerular Filt Rate > 60; Glucose Random 139 mg/dL (60-115); Potassium 4.2 mmol/L (3.3-5.1); Sodium 139 mmol/L (135-145)
[2022-02-07 07:20] LABS: Glucose, Whole Blood 146 mg/dL (60-115)
[2022-02-07] MEDS: Gabapentin 100 MG CAPSULE 200 MG PO ×3 (09:56→20:09)
[2022-02-07] MEDS: 0.9 % Sodium Chloride Flush 3 ML SYRINGE IVFLUSH ×3 (09:57→20:12)
[2022-02-07] MEDS: Nicotine 14 MG PATCH.TD24 TRANSDERMA (09:57)
[2022-02-07] MEDS: Aspirin Enteric Coated 81 MG TABLET.DR PO (09:57)
[2022-02-07] MEDS: lisinopriL 20 MG TABLET PO (09:57)
[2022-02-07] MEDS: Pravastatin Sodium 40 MG TABLET PO (09:57)
[2022-02-07] MEDS: Acetaminophen 325 MG TABLET 650 MG PO ×2 (10:06→16:11)
[2022-02-07 10:41] LABS: Vancomycin Random 19.7 mcg/mL (15-20)
--- NOTE | 2022-02-07 11:01 | HE.PHANOTE ---
RE ROEL Trough today is 19.7. Huge jump over last 36 hours. Reduced dose to q24 hours dosing since patient is >65. I also changed the model to the obese model in fear that he is dose dumping. Next random level is due for 02/09 @1999. On obese model, the AUC is 482 and trough 18. Thanks Kev
[2022-02-07 11:28] LABS: Glucose, Whole Blood 162 mg/dL (60-115)
--- NOTE | 2022-02-07 11:40 | HO.PM.IMPN ---
Subjective Subjective Date of Service: 02/07/22 Interval History: cc: lle pain, swelling interval history:weakness, pain Cardiovascular Cardiovascular: Reports no additional cardiovascular complaints Respiratory Respiratory: Reports no additional respiratory complaints Physical Exam Vital Signs: Vital Signs: Last Vital Signs Temp 97.8 F 02/07/22 07:43 Pulse 69 02/07/22 09:08 Resp 18 02/07/22 07:43 BP 114/48 L 02/07/22 09:08 Pulse Ox 94 02/07/22 09:08 O2 Del Method 02/07/22 07:43 BMI result Body Mass Index 31.5 General: AO X 3, no acute distress Resp: CTA bilateral, no accessory muscles used CVS: S1,S2,RRR GI: soft, non tender, non distended Neuro: motor grossly intact, alert Psych: appropriate affect, appropriate insight LLE swelling, erythema with ulcer Objective Data Active Medications Acetaminophen (Acetaminophen 325 Mg Tablet) 650 mg PO Q6H PRN PRN Reason: Pain, Mild (Pain Scale 1-3) Last Admin: 02/07/22 10:06 Dose: 650 mg Documented By: MONTANA Albuterol/Ipratropium (Albuterol/Iprat 2.5/0.5mg 3 Ml Ampul.Neb) 3 ml INHALE Q6H PRN PRN Reason: Shortness of Breath/Wheezing Aspirin (Aspirin Enteric Coated 81 Mg Tablet.) 81 mg PO DAILY [facility] Last Admin: 02/07/22 09:57 Dose: 81 mg Documented By: MONTANA Dextrose (Dextrose 50 % 25 Gm/50 Ml Syringe) 25 gm IVPUSH Q15M PRN; Protocol PRN Reason: per Hypoglycemia Standing Ord. Docusate Sodium (Docusate Sodium 100 Mg Capsule) 100 mg PO DAILY PRN PRN Reason: Constipation Enoxaparin Sodium (Enoxaparin Sodium 40 Mg/0.4 Ml Syringe) 40 mg SUBCUT Q24H [facility] Last Admin: 02/06/22 18:08 Dose: 40 mg Documented By: HITESH Gabapentin (Gabapentin 100 Mg Capsule) 200 mg PO TID [facility] Last Admin: 02/07/22 09:56 Dose: 200 mg Documented By: MONTANA Glucose (Glucose Gel 15 Gm Gel..Gram.) 15 gm PO Q15M PRN; Protocol PRN Reason: per Hypoglycemia Standing Ord. Vancomycin HCl 1,250 mg/ (Sodium Chloride) 250 mls @ 166.667 mls/hr IV Q24H [facility] Insulin Human Lispro (Insulin Lispro 100 Unit/Ml 3 Ml Vial) 0 unit SUBCUT QIDACHS [facility]; Protocol Last Admin: 02/06/22 20:20 Dose: 2 unit Documented By: RONNIE Lisinopril (Lisinopril 20 Mg Tablet) 20 mg PO DAILY [facility]; Protocol Last Admin: 02/07/22 09:57 Dose: 20 mg Documented By: MONTANA Morphine Sulfate (Morphine Sulfate 4 Mg/Ml Cartridge) 2 mg IVPUSH Q4H PRN; Protocol PRN Reason: Pain, Severe (Pain Scale 7-10) Nicotine (Nicotine 14 Mg Patch.Td24) 14 mg TRANSDERMA DAILY [facility] Last Admin: 02/07/22 09:57 Dose: 14 mg Documented By: MONTANA Nicotine Polacrilex (Nicotine Polacrilex 2 Mg Gum) 2 mg BUCCAL Q2H PRN PRN Reason: Nicotine Cravings Ondansetron HCl (Ondansetron Hcl 4 Mg/2 Ml Vial) 4 mg IVPUSH Q8H PRN PRN Reason: Nausea and Vomiting Oxycodone HCl (Oxycodone Hcl Immed Release 5 Mg Tablet) 5 mg PO Q6H PRN PRN Reason: Pain, Severe (Pain Scale 7-10) Last Admin: 02/07/22 10:06 Dose: 5 mg Documented By: MONTANA Pharmacy Consult (Consult Rx Perform Med Rec) 1 each MISCELLANE ONCE PRN PRN Reason: Consult order Pharmacy Consult (Consult Rx Vancomycin Dosing) 1 each MISCELLANE DAILY PRN PRN Reason: Consult order Pravastatin Sodium (Pravastatin Sodium 40 Mg Tablet) 40 mg PO DAILY [facility] Last Admin: 02/07/22 09:57 Dose: 40 mg Documented By: MONTANA Sodium Chloride (0.9 % Sodium Chloride Flush 3 Ml Syringe) 3 ml IVFLUSH QSHIFT [facility] Last Admin: 02/07/22 09:57 Dose: 3 ml Documented By: MONTANA Labs CBC & Chem 7: 02/04/22 05:43 02/07/22 05:22 Labs: Laboratory Results - last 24 hr 0802/06/22 02/06/22 10:24 15:28 19:36 Anion Gap Estim Creat Clear Calc 98.5 Estimated GFR > 60 POC Glucose 117 H 151 H Random Glucose Calcium Random Vancomycin 02/07/22 02/07/22 02/07/22 05:22 07:12 09:57 Anion Gap 13 Estim Creat Clear Calc 87.8 Estimated GFR > 60 POC Glucose 146 H Random Glucose 139 H Calcium 8.2 L Random Vancomycin 19.7 02/07/22 11:24 Anion Gap Estim Creat Clear Calc Estimated GFR POC Glucose 162 H Random Glucose Calcium Random Vancomycin Assessment and Plan (1) Cellulitis of left leg: Status: Acute (2) Leg ulcer, left: Status: Acute (3) Stasis edema of both lower extremities: Status: Acute Plan This is a 69-year-old male with history of diabetes, COPD, hypertension, hyperlipidemia who presents to the emergency department with increasing swelling, redness, pain of his left lower extremity Left lower extremity cellulitis secondary to diabetes, venous stasis Circumferential cellulitis extending from knee down and including entire foot US negative for DVT continue IV vancomycin total 7days as per ID (day 3 of 7, end 02/11) seen and evaluated by general surgery with rec to continue current tx Blood cultures neg continue local wound care, refer to wound clinic o/p Type 2 diabetes SSI, POCs, ADA diet COPD Patient continues to actively smoke 1/2ppd P.r.n. DuoNeb treatments Smoker Smoking cessation has been advised nicotine replacement therapy Obesity BMI 32.1 Contributing to mobility issues Hypertension Continue lisinopril Hyperlipidemia Continue statin DVT prophylaxis - Lovenox Code status - full code Healthcare proxy - friend Miguel Ángel aguilar Patient requires ongoing inpatient stay to to severe left lower extremity cellulitis and need for IV antibiotics Quality Stroke Does the patient have a stroke diagnosis?: No VTE Prior VTE?: No VTE Risk Level:: Medical - moderate - high VTE Device Contraindication: Treatment Not Indicated VTE Drug Contraindication: N/A - Med Ordered
[2022-02-07] MEDS: Insulin Lispro 100 UNIT/ML 3 ML VIAL SUBCUT ×2 (11:48→20:09)
[2022-02-07] MEDS: Enoxaparin Sodium 40 MG/0.4 ML SYRINGE SUBCUT (16:06)
[2022-02-07 16:11] LABS: Glucose, Whole Blood 132 mg/dL (60-115)
--- NOTE | 2022-02-07 16:23 | PC.NURSE ---
Patients right lower dressing changed per MD orders. patient tolerated well. Leg elevated on pillow. Right foot elevated with air boot to prevent breakdown. Patient agrees with plan to continue abx and work on ambulation
[2022-02-07 19:36] LABS: Glucose, Whole Blood 171 mg/dL (60-115)
[2022-02-08 04:00] VITALS: BP 112/56; PULSE 67; RESP 18; TEMP 36.1; O2SAT 94
[2022-02-08 07:02] LABS: Hematocrit 38.1 % (42.0-52.0); Hemoglobin 12.2 g/dl (14.0-18.0); Mean Corpuscular Hemoglobin 31.5 pg (27.0-33.0); Mean Corpuscular Volume 98.4 fL (80.0-98.0); Mean Platelet Volume 9.7 fL (9.4-12.4); Platelet Count 214 X10*3/uL (160-400); Red Blood Count 3.87 X10*6/uL (4.60-5.80); Red Cell Distribution Width 12.7 % (11.0-16.0)
[2022-02-08 07:17] LABS: Anion Gap 13 (12-20); Blood Urea Nitrogen 16 mg/dL (9-16); Calcium 8.3 mg/dL (8.4-10.2); Carbon Dioxide 24 mmol/L (22-29); Chloride 106 mmol/L (96-108); Creatinine Clr Calc Pharmacy 99.8; Estimated Glomerular Filt Rate > 60; Glucose Fasting 141 mg/dL (60-99); Potassium 4.2 mmol/L (3.3-5.1); Sodium 139 mmol/L (135-145)
[2022-02-08 07:23] VITALS: BP 104/49; PULSE 59; RESP 18; TEMP 36.3; O2SAT 95
[2022-02-08 07:43] LABS: Glucose, Whole Blood 145 mg/dL (60-115)
[2022-02-08] MEDS: Gabapentin 100 MG CAPSULE 200 MG PO ×3 (08:46→20:46)
[2022-02-08] MEDS: Pravastatin Sodium 40 MG TABLET PO (08:46)
[2022-02-08] MEDS: Aspirin Enteric Coated 81 MG TABLET.DR PO (08:47)
[2022-02-08] MEDS: oxyCODONE HCl Immed Release 5 MG TABLET PO ×2 (08:47→15:41)
[2022-02-08] MEDS: Nicotine 14 MG PATCH.TD24 TRANSDERMA (08:48)
[2022-02-08] MEDS: 0.9 % Sodium Chloride Flush 3 ML SYRINGE IVFLUSH ×3 (09:42→20:54)
--- NOTE | 2022-02-08 10:23 | HO.PM.IMPN ---
Subjective Subjective Date of Service: 02/08/22 Interval History: cc: lle pain, swelling interval history:weakness, pain Cardiovascular Cardiovascular: Reports no additional cardiovascular complaints Respiratory Respiratory: Reports no additional respiratory complaints Physical Exam Vital Signs: Vital Signs: Last Vital Signs Temp 97.4 F 02/08/22 07:23 Pulse 59 02/08/22 07:23 Resp 18 02/08/22 07:23 BP 104/49 L 02/08/22 07:23 Pulse Ox 95 02/08/22 07:23 O2 Del Method 02/08/22 07:23 BMI result Body Mass Index 31.5 General: AO X 3, no acute distress Resp: CTA bilateral, no accessory muscles used CVS: S1,S2,RRR GI: soft, non tender, non distended Neuro: motor grossly intact, alert Psych: appropriate affect, appropriate insight LLE swelling, erythema with ulcer Objective Data Active Medications Acetaminophen (Acetaminophen 325 Mg Tablet) 650 mg PO Q6H PRN PRN Reason: Pain, Mild (Pain Scale 1-3) Last Admin: 02/07/22 16:11 Dose: 650 mg Documented By: [place] Albuterol/Ipratropium (Albuterol/Iprat 2.5/0.5mg 3 Ml Ampul.Neb) 3 ml INHALE Q6H PRN PRN Reason: Shortness of Breath/Wheezing Aspirin (Aspirin Enteric Coated 81 Mg Tablet.Dr) 81 mg PO DAILY [facility] Last Admin: 02/08/22 08:47 Dose: 81 mg Documented By: GEOVANNI Dextrose (Dextrose 50 % 25 Gm/50 Ml Syringe) 25 gm IVPUSH Q15M PRN; Protocol PRN Reason: per Hypoglycemia Standing Ord. Docusate Sodium (Docusate Sodium 100 Mg Capsule) 100 mg PO DAILY PRN PRN Reason: Constipation Enoxaparin Sodium (Enoxaparin Sodium 40 Mg/0.4 Ml Syringe) 40 mg SUBCUT Q24H [facility] Last Admin: 02/07/22 16:06 Dose: 40 mg Documented By: [place] Gabapentin (Gabapentin 100 Mg Capsule) 200 mg PO TID [facility] Last Admin: 02/08/22 08:46 Dose: 200 mg Documented By: GEOVANNI Glucose (Glucose Gel 15 Gm Gel..Gram.) 15 gm PO Q15M PRN; Protocol PRN Reason: per Hypoglycemia Standing Ord. Vancomycin HCl 1,250 mg/ (Sodium Chloride) 250 mls @ 166.667 mls/hr IV Q24H [facility] Last Infusion: 02/08/22 00:14 Dose: 0 mls/hr Documented By: RONNIE Insulin Human Lispro (Insulin Lispro 100 Unit/Ml 3 Ml Vial) 0 unit SUBCUT QIDACHS [facility]; Protocol Last Admin: 02/08/22 08:31 Dose: Not Given Documented By: GEOVANNI Non-Admin Reason: No Insulin Coverage Lisinopril (Lisinopril 20 Mg Tablet) 20 mg PO DAILY [facility]; Protocol Last Admin: 02/08/22 09:41 Dose: Not Given Documented By: GEOVANNI Non-Admin Reason: low bp Morphine Sulfate (Morphine Sulfate 4 Mg/Ml Cartridge) 2 mg IVPUSH Q4H PRN; Protocol PRN Reason: Pain, Severe (Pain Scale 7-10) Nicotine (Nicotine 14 Mg Patch.Td24) 14 mg TRANSDERMA DAILY [facility] Last Admin: 02/08/22 08:48 Dose: 14 mg Documented By: GEOVANNI Nicotine Polacrilex (Nicotine Polacrilex 2 Mg Gum) 2 mg BUCCAL Q2H PRN PRN Reason: Nicotine Cravings Ondansetron HCl (Ondansetron Hcl 4 Mg/2 Ml Vial) 4 mg IVPUSH Q8H PRN PRN Reason: Nausea and Vomiting Oxycodone HCl (Oxycodone Hcl Immed Release 5 Mg Tablet) 5 mg PO Q6H PRN PRN Reason: Pain, Severe (Pain Scale 7-10) Last Admin: 02/08/22 08:47 Dose: 5 mg Documented By: GEOVANNI Pharmacy Consult (Consult Rx Perform Med Rec) 1 each MISCELLANE ONCE PRN PRN Reason: Consult order Pharmacy Consult (Consult Rx Vancomycin Dosing) 1 each MISCELLANE DAILY PRN PRN Reason: Consult order Pravastatin Sodium (Pravastatin Sodium 40 Mg Tablet) 40 mg PO DAILY [facility] Last Admin: 02/08/22 08:46 Dose: 40 mg Documented By: GEOVANNI Sodium Chloride (0.9 % Sodium Chloride Flush 3 Ml Syringe) 3 ml IVFLUSH QSHIFT [facility] Last Admin: 02/08/22 09:42 Dose: 3 ml Documented By: GEOVANNI Labs CBC & Chem 7: 02/08/22 06:08 02/08/22 06:08 Labs: Laboratory Results - last 24 hr 02/07/22 02/07/22 02/07/22 09:57 11:24 15:25 MCV MCH MCHC RDW Plt Count MPV Absolute Nucleated RBC Nucleated RBC % (auto) Anion Gap Estim Creat Clear Calc Estimated GFR POC Glucose 162 H 132 H Random Glucose Fasting Glucose Calcium Random Vancomycin 19.7 02/07/22 02/08/22 02/08/22 19:26 06:08 06:08 MCV 98.4 H MCH 31.5 MCHC 32.0 RDW 12.7 Plt Count 214 MPV 9.7 Absolute Nucleated RBC 0.000 Nucleated RBC % (auto) 0.0 Anion Gap 13 Estim Creat Clear Calc 99.8 Estimated GFR > 60 POC Glucose 171 H Random Glucose TNP Fasting Glucose 141 H Calcium 8.3 L Random Vancomycin 02/08/22 07:39 MCV MCH MCHC RDW Plt Count MPV Absolute Nucleated RBC Nucleated RBC % (auto) Anion Gap Estim Creat Clear Calc Estimated GFR POC Glucose 145 H Random Glucose Fasting Glucose Calcium Random Vancomycin Assessment and Plan (1) Cellulitis of left leg: Status: Acute (2) Leg ulcer, left: Status: Acute (3) Stasis edema of both lower extremities: Status: Acute Plan This is a 69-year-old male with history of diabetes, COPD, hypertension, hyperlipidemia who presents to the emergency department with increasing swelling, redness, pain of his left lower extremity Left lower extremity cellulitis secondary to diabetes, venous stasis Circumferential cellulitis extending from knee down and including entire foot US negative for DVT continue IV vancomycin total 7days as per ID (day 4 of 7, end 02/11) seen and evaluated by general surgery with rec to continue current tx Blood cultures neg continue local wound care, refer to wound clinic o/p Type 2 diabetes SSI, POCs, ADA diet COPD Patient continues to actively smoke 1/2ppd P.r.n. Evelia treatments Smoker Smoking cessation has been advised nicotine replacement therapy Obesity BMI 32.1 Contributing to mobility issues Hypertension will hold lisinopril for relative hypotension Hyperlipidemia Continue statin DVT prophylaxis - Lovenox Code status - full code Healthcare proxy - friend Miguel Ángel aguilar Patient requires ongoing inpatient stay to to severe left lower extremity cellulitis and need for IV antibiotics Quality Stroke Does the patient have a stroke diagnosis?: No VTE Prior VTE?: No VTE Risk Level:: Medical - moderate - high VTE Device Contraindication: Treatment Not Indicated VTE Drug Contraindication: N/A - Med Ordered
[2022-02-08 11:11] LABS: Glucose, Whole Blood 157 mg/dL (60-115)
[2022-02-08 11:26] VITALS: BP 109/48; PULSE 56; RESP 13; TEMP 36.5; O2SAT 98
[2022-02-08] MEDS: Insulin Lispro 100 UNIT/ML 3 ML VIAL SUBCUT ×2 (11:49→16:34)
[2022-02-08] MEDS: Acetaminophen 325 MG TABLET 650 MG PO (11:54)
[2022-02-08 15:27] VITALS: BP 114/54; PULSE 59; RESP 17; TEMP 37.4; O2SAT 98
--- NOTE | 2022-02-08 15:31 | MHC.CM.PN ---
PER ROUNDS DISCUSSION, PATIENT IS NOT YET MEDICALLY CLEARED FOR DISCHARGE TODAY R/T SEVERE LOWER EXTREMITY CELLULITES OF LEFT LEG REQUIRING IV ANTIBIOTICS AND STASIS EDEMA OF BOTH LOWER EXTREMITIES. CM WILL CONTINUE TO FOLLOW FOR D/C PLANS.
[2022-02-08] MEDS: Enoxaparin Sodium 40 MG/0.4 ML SYRINGE SUBCUT (16:34)
[2022-02-08 16:49] LABS: Glucose, Whole Blood 158 mg/dL (60-115)
[2022-02-08 19:06] VITALS: BP 128/52; PULSE 78; RESP 18; TEMP 37.1; O2SAT 95
[2022-02-08 20:00] LABS: Glucose, Whole Blood 119 mg/dL (60-115)
[2022-02-08] MEDS: vancomycin HCL 1,250 MG in 0.9 % Sodium Chloride 250 ML 166.67 MG IV (20:54)
[2022-02-08] MEDS: HYDROmorphone HCl 0.5 MG/0.5 ML SYRINGE IVPUSH (21:39)
[2022-02-08 23:16] VITALS: BP 113/55; PULSE 70; RESP 18; TEMP 36.6; O2SAT 93
[2022-02-09 03:21] VITALS: BP 136/61; PULSE 60; RESP 18; TEMP 36.3; O2SAT 96
[2022-02-09 06:45] LABS: Anion Gap 14 (12-20); Blood Urea Nitrogen 17 mg/dL (9-16); Calcium 8.1 mg/dL (8.4-10.2); Carbon Dioxide 24 mmol/L (22-29); Chloride 104 mmol/L (96-108); Estimated Glomerular Filt Rate > 60; Glucose Random 146 mg/dL (60-115); Potassium 4.3 mmol/L (3.3-5.1); Sodium 138 mmol/L (135-145)
[2022-02-09 07:34] LABS: Glucose, Whole Blood 139 mg/dL (60-115)
[2022-02-09 08:00] VITALS: BP 116/47; PULSE 85; RESP 18; TEMP 36.8; O2SAT 95
[2022-02-09] MEDS: Nicotine 14 MG PATCH.TD24 TRANSDERMA (09:14)
[2022-02-09] MEDS: Gabapentin 100 MG CAPSULE 200 MG PO ×3 (09:14→20:59)
[2022-02-09] MEDS: 0.9 % Sodium Chloride Flush 3 ML SYRINGE IVFLUSH ×2 (09:15→15:13)
[2022-02-09] MEDS: Pravastatin Sodium 40 MG TABLET PO (09:16)
[2022-02-09] MEDS: Aspirin Enteric Coated 81 MG TABLET.DR PO (09:16)
--- NOTE | 2022-02-09 09:27 | P.PNIM_ITS ---
Subjective Subjective Date of Service: 02/09/22 Interval History: cc: lle pain, swelling interval history:weakness, pain Cardiovascular Cardiovascular: Reports no additional cardiovascular complaints Respiratory Respiratory: Reports no additional respiratory complaints Physical Exam Vital Signs: Vital Signs: Last Vital Signs Temp 98.2 F 02/09/22 08:00 Pulse 85 02/09/22 08:00 Resp 18 02/09/22 08:00 BP 116/47 L 02/09/22 08:00 Pulse Ox 95 02/09/22 08:00 O2 Del Method 02/09/22 08:00 BMI result Body Mass Index 31.5 General: AO X 3, no acute distress Resp: CTA bilateral, no accessory muscles used CVS: S1,S2,RRR GI: soft, non tender, non distended Neuro: motor grossly intact, alert Psych: appropriate affect, appropriate insight LLE swelling, erythema with ulcer Objective Data Active Medications Acetaminophen (Acetaminophen 325 Mg Tablet) 650 mg PO Q6H PRN PRN Reason: Pain, Mild (Pain Scale 1-3) Last Admin: 02/08/22 11:54 Dose: 650 mg Documented By: GEOVANNI Albuterol/Ipratropium (Albuterol/Iprat 2.5/0.5mg 3 Ml Ampul.Neb) 3 ml INHALE Q6H PRN PRN Reason: Shortness of Breath/Wheezing Aspirin (Aspirin Enteric Coated 81 Mg Tablet.Dr) 81 mg PO DAILY [facility] Last Admin: 02/09/22 09:16 Dose: 81 mg Documented By: GEOVANNI Dextrose (Dextrose 50 % 25 Gm/50 Ml Syringe) 25 gm IVPUSH Q15M PRN; Protocol PRN Reason: per Hypoglycemia Standing Ord. Docusate Sodium (Docusate Sodium 100 Mg Capsule) 100 mg PO DAILY PRN PRN Reason: Constipation Enoxaparin Sodium (Enoxaparin Sodium 40 Mg/0.4 Ml Syringe) 40 mg SUBCUT Q24H [facility] Last Admin: 02/08/22 16:34 Dose: 40 mg Documented By: GEOVANNI Gabapentin (Gabapentin 100 Mg Capsule) 200 mg PO TID [facility] Last Admin: 02/09/22 09:14 Dose: 200 mg Documented By: GEOVANNI Glucose (Glucose Gel 15 Gm Gel..Gram.) 15 gm PO Q15M PRN; Protocol PRN Reason: per Hypoglycemia Standing Ord. Vancomycin HCl 1,250 mg/ (Sodium Chloride) 250 mls @ 166.667 mls/hr IV Q24H [facility] Last Infusion: 02/08/22 22:31 Dose: 0 mls/hr Documented By: [place] Insulin Human Lispro (Insulin Lispro 100 Unit/Ml 3 Ml Vial) 0 unit SUBCUT QIDACHS [facility]; Protocol Last Admin: 02/09/22 08:11 Dose: Not Given Documented By: GEOVANNI Non-Admin Reason: No Insulin Coverage Nicotine (Nicotine 14 Mg Patch.Td24) 14 mg TRANSDERMA DAILY [facility] Last Admin: 02/09/22 09:14 Dose: 14 mg Documented By: GEOVANNI Nicotine Polacrilex (Nicotine Polacrilex 2 Mg Gum) 2 mg BUCCAL Q2H PRN PRN Reason: Nicotine Cravings Ondansetron HCl (Ondansetron Hcl 4 Mg/2 Ml Vial) 4 mg IVPUSH Q8H PRN PRN Reason: Nausea and Vomiting Pharmacy Consult (Consult Rx Perform Med Rec) 1 each MISCELLANE ONCE PRN PRN Reason: Consult order Pharmacy Consult (Consult Rx Vancomycin Dosing) 1 each MISCELLANE DAILY PRN PRN Reason: Consult order Pravastatin Sodium (Pravastatin Sodium 40 Mg Tablet) 40 mg PO DAILY [facility] Last Admin: 02/09/22 09:16 Dose: 40 mg Documented By: GEOVANNI Sodium Chloride (0.9 % Sodium Chloride Flush 3 Ml Syringe) 3 ml IVFLUSH QSHIFT [facility] Last Admin: 02/09/22 09:15 Dose: 3 ml Documented By: GEOVANNI Labs CBC & Chem 7: 02/08/22 06:08 02/09/22 05:24 Labs: Laboratory Results - last 24 hr 02/08/22 02/08/22 02/08/22 11:07 16:06 19:54 Anion Gap Estim Creat Clear Calc Estimated GFR POC Glucose 157 H 158 H 119 H Random Glucose Calcium 02/09/22 02/09/22 05:24 07:30 Anion Gap 14 Estim Creat Clear Calc 94.0 Estimated GFR > 60 POC Glucose 139 H Random Glucose 146 H Calcium 8.1 L Microbiology Microbiology Results: Microbiology 02/03/22 14:42 Blood Culture - Final Blood - Venous No growth after 5 days. 02/03/22 14:42 Blood Culture - Final Blood - Venous No growth after 5 days. Assessment and Plan (1) Cellulitis of left leg: Status: Acute (2) Leg ulcer, left: Status: Acute (3) Stasis edema of both lower extremities: Status: Acute Plan This is a 69-year-old male with history of diabetes, COPD, hypertension, hyperlipidemia who presents to the emergency department with increasing swelling, redness, pain of his left lower extremity Left lower extremity cellulitis secondary to diabetes, venous stasis Circumferential cellulitis extending from knee down and including entire foot US negative for DVT continue IV vancomycin total 7days as per ID (day 5 of 7, end 02/11) seen and evaluated by general surgery with rec to continue current tx Blood cultures neg continue local wound care, refer to wound clinic o/p Type 2 diabetes SSI, POCs, ADA diet COPD Patient continues to actively smoke 1/2ppd P.r.n. DuoNeb treatments Smoker Smoking cessation has been advised nicotine replacement therapy Obesity BMI 32.1 Contributing to mobility issues Hypertension will hold lisinopril for relative hypotension Hyperlipidemia Continue statin DVT prophylaxis - Lovenox Code status - full code Healthcare proxy - friend Miguel Ángel aguilar Patient requires ongoing inpatient stay to to severe left lower extremity cellulitis and need for IV antibiotics Quality Stroke Does the patient have a stroke diagnosis?: No VTE Prior VTE?: No VTE Risk Level:: Medical - moderate - high VTE Device Contraindication: Treatment Not Indicated VTE Drug Contraindication: N/A - Med Ordered
[2022-02-09 10:02] VITALS: BP 116/47; PULSE 85; O2SAT 95
[2022-02-09 11:13] VITALS: BP 108/55; PULSE 60; RESP 17; TEMP 36.6; O2SAT 97
--- NOTE | 2022-02-09 11:20 | MHC.CM.PN ---
EMR REVIEWED, PER HOSPITALIST PT WILL BE READY FOR D/C SUNDAY 02/11 AFTER COMPLETION OF IV ABX COURSE, CM ALSO RECEIVED CALL FROM ANN AT [facility] [employer] AND HAVE BEEN UPDATED ON D/C PLAN, PER NAN PT WILL BE SEEN ON SAT OR FOR RESUMP OF CARE, CM WILL CONT TO FOLLOW D/C NEEDS.
[2022-02-09 11:29] LABS: Glucose, Whole Blood 169 mg/dL (60-115)
[2022-02-09] MEDS: Insulin Lispro 100 UNIT/ML 3 ML VIAL SUBCUT ×2 (12:08→20:58)
--- NOTE | 2022-02-09 12:49 | MHC.CLN ---
F/U DIET=DIABETIC 1800 KCALS. EATING 100%. RECOMMEND INCREASE CALORIES TO 2200 KCALS TO PROVIDE MORE FOOD CHOICES.
[2022-02-09 15:27] VITALS: BP 129/55; PULSE 63; RESP 16; TEMP 36.6; O2SAT 97
[2022-02-09] MEDS: oxyCODONE HCl Immed Release 5 MG TABLET PO ×2 (15:28→20:59)
[2022-02-09 15:50] LABS: Glucose, Whole Blood 127 mg/dL (60-115)
--- NOTE | 2022-02-09 15:54 | PM.IDPN ---
Subjective Subjective Date of Service: 02/09/22 Critical Care Time (minutes): 15 Comment: He has improvement LLL erythema. Objective Data Labs CBC & Chem 7: 02/08/22 06:08 02/09/22 05:24 Labs: Laboratory Results - last 24 hr 02/08/22 02/08/22 02/09/22 16:06 19:54 05:24 Sodium 138 Potassium 4.3 Chloride 104 Carbon Dioxide 24 Anion Gap 14 BUN 17 H Creatinine 0.86 Estim Creat Clear Calc 94.0 Estimated GFR > 60 POC Glucose 158 H 119 H Random Glucose 146 H Calcium 8.1 L 02/09/22 02/09/22 02/09/22 07:30 11:20 15:26 Sodium Potassium Chloride Carbon Dioxide Anion Gap BUN Creatinine Estim Creat Clear Calc Estimated GFR POC Glucose 139 H 169 H 127 H Random Glucose Calcium Microbiology Microbiology Results: Microbiology 02/03/22 14:42 Blood - Venous Blood Culture - Final No growth after 5 days. 02/03/22 14:42 Blood - Venous Blood Culture - Final No growth after 5 days. Physical Exam Vital Signs: Vital Signs: Last Vital Signs Temp 98 F 02/09/22 15:27 Pulse 63 02/09/22 15:27 Resp 16 02/09/22 15:27 BP 129/55 L 02/09/22 15:27 Pulse Ox 97 02/09/22 15:27 O2 Del Method 02/09/22 15:27 BMI result Body Mass Index 31.5 Const: General: cooperative HEENT: Head: Yes normal to inspection Mouth: Normal oral and palatal mucosa present Resp: Effort & Inspection: normal respiratory effort Cardio: Rate: regular rate Rhythm: regular rhythm GI: Palpation (GI): Soft to palpation and nontender Extrem: Other: improving erythema Assessment and Plan Assessment and plan (1) Cellulitis of left leg: Problem details: he has improving cellulitis Status: Acute Assessment and Plan: Finish 7 days IV Vancomycin and then give po Doxycycline for 14 days. Time Spent With Patient Time: Total time spent is greater than 50% in coordination of care (as documented) at patient's floor/unit and/or counseling patient:
[2022-02-09] MEDS: Enoxaparin Sodium 40 MG/0.4 ML SYRINGE SUBCUT (18:33)
[2022-02-09 20:00] VITALS: BP 115/54; PULSE 69; RESP 18; TEMP 36.7; O2SAT 95
[2022-02-09 20:26] LABS: Glucose, Whole Blood 209 mg/dL (60-115)
[2022-02-09 20:32] LABS: Vancomycin Random 10.3 mcg/mL (15-20)
--- NOTE | 2022-02-09 20:51 | HE.PHANOTE ---
RE ROEL INCREASING DOSE TO 1500 MG Q24H; NEXT RANDOM 02/11
[2022-02-09] MEDS: vancomycin HCL 1,500 MG in 0.9 % Sodium Chloride 500 ML 333.33 MG IV (21:00)
[2022-02-10] VITALS (7 sets, daily range): BP systolic 105–133; BP diastolic 51–62; PULSE 58–71; RESP 13–18; TEMP 36.4–37.2; O2SAT 93–97
[2022-02-10 07:06] LABS: Estimated Glomerular Filt Rate > 60
--- NOTE | 2022-02-10 07:27 | HE.PHANOTE ---
[Vanco Addendum] Updated insight, predicted AUC at 1500mg Q24H is low at 346mg/L so increased dose to 1000mg Q12H with predicted AUC of 438mg/L. Level still to be drawn 02/11
[2022-02-10 07:54] LABS: Glucose, Whole Blood 149 mg/dL (60-115)
[2022-02-10] MEDS: vancomycin HCL 1,000 MG in 0.9 % Sodium Chloride 250 ML 270 MG IV ×2 (09:39→21:47)
[2022-02-10] MEDS: Nicotine 14 MG PATCH.TD24 TRANSDERMA (09:40)
[2022-02-10] MEDS: Aspirin Enteric Coated 81 MG TABLET.DR PO (09:40)
[2022-02-10] MEDS: Pravastatin Sodium 40 MG TABLET PO (09:40)
[2022-02-10] MEDS: Gabapentin 100 MG CAPSULE 200 MG PO ×3 (09:40→19:47)
[2022-02-10] MEDS: 0.9 % Sodium Chloride Flush 3 ML SYRINGE IVFLUSH ×3 (09:41→19:53)
--- NOTE | 2022-02-10 09:54 | HO.PM.IMPN ---
Subjective Subjective Date of Service: 02/10/22 Interval History: cc: lle pain, swelling interval history:weakness, pain Cardiovascular Cardiovascular: Reports no additional cardiovascular complaints Respiratory Respiratory: Reports no additional respiratory complaints Physical Exam Vital Signs: Vital Signs: Last Vital Signs Temp 97.6 F 02/10/22 07:48 Pulse 71 02/10/22 07:48 Resp 18 02/10/22 07:48 BP 124/58 L 02/10/22 07:48 Pulse Ox 93 02/10/22 07:48 O2 Del Method 02/10/22 07:48 BMI result Body Mass Index 31.5 Const: General: cooperative HEENT: Head: Yes normal to inspection Mouth: Normal oral and palatal mucosa present Resp: Effort & Inspection: normal respiratory effort Cardio: Rate: regular rate Rhythm: regular rhythm GI: Palpation (GI): Soft to palpation and nontender Extrem: Other: improving erythema Objective Data Active Medications Acetaminophen (Acetaminophen 325 Mg Tablet) 650 mg PO Q6H PRN PRN Reason: Pain, Mild (Pain Scale 1-3) Last Admin: 02/08/22 11:54 Dose: 650 mg Documented By: GEOVANNI Albuterol/Ipratropium (Albuterol/Iprat 2.5/0.5mg 3 Ml Ampul.Neb) 3 ml INHALE Q6H PRN PRN Reason: Shortness of Breath/Wheezing Aspirin (Aspirin Enteric Coated 81 Mg Tablet.) 81 mg PO DAILY [facility] Last Admin: 02/10/22 09:40 Dose: 81 mg Documented By: HITESH Dextrose (Dextrose 50 % 25 Gm/50 Ml Syringe) 25 gm IVPUSH Q15M PRN; Protocol PRN Reason: per Hypoglycemia Standing Ord. Docusate Sodium (Docusate Sodium 100 Mg Capsule) 100 mg PO DAILY PRN PRN Reason: Constipation Enoxaparin Sodium (Enoxaparin Sodium 40 Mg/0.4 Ml Syringe) 40 mg SUBCUT Q24H [facility] Last Admin: 02/09/22 18:33 Dose: 40 mg Documented By: [place] Gabapentin (Gabapentin 100 Mg Capsule) 200 mg PO TID [facility] Last Admin: 02/10/22 09:40 Dose: 200 mg Documented By: HITESH Glucose (Glucose Gel 15 Gm Gel..Gram.) 15 gm PO Q15M PRN; Protocol PRN Reason: per Hypoglycemia Standing Ord. Vancomycin HCl 1,000 mg/ (Sodium Chloride) 270 mls @ 270 mls/hr IV Q12H [facility] Last Admin: 02/10/22 09:39 Dose: 270 mls/hr Documented By: HITESH Insulin Human Lispro (Insulin Lispro 100 Unit/Ml 3 Ml Vial) 0 unit SUBCUT QIDACHS [facility]; Protocol Last Admin: 02/10/22 07:56 Dose: Not Given Documented By: HITESH Non-Admin Reason: No Insulin Coverage Nicotine (Nicotine 14 Mg Patch.Td24) 14 mg TRANSDERMA DAILY [facility] Last Admin: 02/10/22 09:40 Dose: 14 mg Documented By: HITESH Nicotine Polacrilex (Nicotine Polacrilex 2 Mg Gum) 2 mg BUCCAL Q2H PRN PRN Reason: Nicotine Cravings Ondansetron HCl (Ondansetron Hcl 4 Mg/2 Ml Vial) 4 mg IVPUSH Q8H PRN PRN Reason: Nausea and Vomiting Oxycodone HCl (Oxycodone Hcl Immed Release 5 Mg Tablet) 5 mg PO Q4H PRN PRN Reason: moderate pain Last Admin: 02/09/22 20:59 Dose: 5 mg Documented By: HOLLAND Pharmacy Consult (Consult Rx Perform Med Rec) 1 each MISCELLANE ONCE PRN PRN Reason: Consult order Pharmacy Consult (Consult Rx Vancomycin Dosing) 1 each MISCELLANE DAILY PRN PRN Reason: Consult order Pravastatin Sodium (Pravastatin Sodium 40 Mg Tablet) 40 mg PO DAILY [facility] Last Admin: 02/10/22 09:40 Dose: 40 mg Documented By: HITESH Sodium Chloride (0.9 % Sodium Chloride Flush 3 Ml Syringe) 3 ml IVFLUSH QSHIFT [facility] Last Admin: 02/10/22 09:41 Dose: 3 ml Documented By: HITESH Labs CBC & Chem 7: 02/08/22 06:08 02/10/22 05:53 Labs: Laboratory Results - last 24 hr 02/09/22 02/09/22 02/09/22 11:20 15:26 19:50 Estim Creat Clear Calc Estimated GFR POC Glucose 169 H 127 H Random Vancomycin 10.3 L 02/09/22 02/10/22 02/10/22 20:18 05:53 07:44 Estim Creat Clear Calc 101.0 Estimated GFR > 60 POC Glucose 209 H 149 H Random Vancomycin Assessment and Plan (1) Cellulitis of left leg: Status: Acute (2) Leg ulcer, left: Status: Acute (3) Stasis edema of both lower extremities: Status: Acute Plan This is a 69-year-old male with history of diabetes, COPD, hypertension, hyperlipidemia who presents to the emergency department with increasing swelling, redness, pain of his left lower extremity Left lower extremity cellulitis secondary to diabetes, venous stasis Circumferential cellulitis extending from knee down and including entire foot US negative for DVT continue IV vancomycin total 7days as per ID (day 6 of 7, end 02/11), then 14 days of po doxy seen and evaluated by general surgery with rec to continue current tx Blood cultures neg continue local wound care, refer to wound clinic o/p Type 2 diabetes SSI, POCs, ADA diet COPD Patient continues to actively smoke 1/2ppd P.r.n. DuoNeb treatments Smoker Smoking cessation has been advised nicotine replacement therapy Obesity BMI 32.1 Contributing to mobility issues Hypertension will hold lisinopril for relative hypotension Hyperlipidemia Continue statin DVT prophylaxis - Lovenox Code status - full code Healthcare proxy - friend Miguel Ángel aguilar Patient requires ongoing inpatient stay to to severe left lower extremity cellulitis and need for IV antibiotics Quality Stroke Does the patient have a stroke diagnosis?: No VTE Prior VTE?: No VTE Risk Level:: Medical - moderate - high VTE Device Contraindication: Treatment Not Indicated VTE Drug Contraindication: N/A - Med Ordered
[2022-02-10] MEDS: oxyCODONE HCl Immed Release 5 MG TABLET PO ×2 (10:08→20:45)
[2022-02-10 11:12] LABS: Glucose, Whole Blood 201 mg/dL (60-115)
[2022-02-10] MEDS: Insulin Lispro 100 UNIT/ML 3 ML VIAL SUBCUT ×2 (12:08→20:41)
[2022-02-10 16:01] LABS: Glucose, Whole Blood 149 mg/dL (60-115)
[2022-02-10] MEDS: Enoxaparin Sodium 40 MG/0.4 ML SYRINGE SUBCUT (17:59)
[2022-02-10 20:16] LABS: Glucose, Whole Blood 210 mg/dL (60-115)
--- NOTE | 2022-02-11 00:26 | PC.NURSE ---
PT peripheral IV in L forearm removed due to pain and infiltration, PT tolerated well, IV intact. PT refusing new IV, PT educated on having IV access during an emergency situation, PT still refusing saying, I am going home tomorrow.
[2022-02-11 03:48] VITALS: BP 111/53; PULSE 59; RESP 16; TEMP 36.5; O2SAT 93
--- NOTE | 2022-02-11 07:07 | P.DS_ITS ---
DS: Providers Provider Date of Service: 02/11/22 Date of admission: 02/03/22 16:25 Primary care physician: Billy Longoria MD Consults: 02/03/22 16:29 Consult to Infectious Diseases Routine Consulting Provider: Meggan Hedrick Reason for consultation: left leg cellulitis Has provider been notified: No 02/04/22 10:35 Consult to General Surgery Routine Consulting Provider: Nette Araujo Reason for consultation: left leg cellulitis, garcia ulceration Has provider been notified: No DS: Diagnosis Discharge Diagnosis (1) Cellulitis of left leg: Status: Acute (2) Leg ulcer, left: Status: Acute (3) Stasis edema of both lower extremities: Status: Acute DS: Summary Hospital Course Hospital Course: from initial hpi: Chief Complaint: Left leg redness and swelling This is a 77-year-old male with history of diabetes, COPD, hypertension, hyperlipidemia who was sent to the emergency department by [facility] today for evaluation of his left leg.? He was admitted to the hospital in August for left lower extremity cellulitis.? He was discharged home visiting nurses and reports that [facility] has been coming 3 times a week since then.? On January 17 he called [facility] called his PCP who called in a 7 day course of Augmentin which the patient completed.? Last Saturday, the [facility] wrapped up his leg and then did come back again.? He called his primary care provider to obtain a new visiting nurse company.? A new company came today for the 1st time and on wrapped his legs for the 1st time in 8 days.? His leg was noted to be red, swollen, warm, tender to palpation and so they recommended that he come to the emergency department for evaluation.? He denies any fevers but does report intermittent chills over the p ast 1 or 2 days.? In the emergency department he was afebrile.? Lab work was unremarkable.? X-ray of his left leg showed no evidence of osteomyelitis or gas.? He was started on IV vancomycin and Zosyn and the decision was made to admit him to the hospital for further management of left lower extremity cellulitis. COVID-19 vaccination status-moderna x3 hospital course: Patient was admitted for left lower extremity cellulitis secondary to diabetes and venous stasis. It was circumferential extending from knee down to entire foot. Ultrasound was negative for DVT. He received 7 days of IV vancomycin per recommendations from Infectious Disease. He will then be transitioned to 14 days of oral doxycycline. He should follow up with wound care as outpatient. For his diabetes he was continued on insulin, he will restart orals on discharge. For COPD he remained stable he was given Nicoderm during hospitalization for smoking cessation. Patient's obesity is contributing to his venous stasis and insulin resistance, weight loss is recommended. First hypertension his lisinopril was held for relative hypotension. First hyperlipidemia he was continued on statin. Patient has improved and will be discharged home. Time Spent with Patient Time attestation: Total time spent providing and/or coordinating discharge services: Discharge coordination time: Greater than 30 minutes Quality: Safe Use of Opioids Does Pt have an Active Cancer Diagnosis on the Problem List?: No Quality: Stroke Does the patient have a stroke diagnosis?: No Physical Exam Vital Signs: Vital Signs: Last Vital Signs Temp 97.7 F 02/11/22 03:48 Pulse 59 02/11/22 03:48 Resp 16 02/11/22 03:48 BP 111/53 L 02/11/22 03:48 Pulse Ox 93 02/11/22 03:48 O2 Del Method 02/11/22 03:48 BMI result Body Mass Index 31.5 Const: General: cooperative HEENT: Head: Yes normal to inspection Mouth: Normal oral and palatal mucosa present Resp: Effort & Inspection: normal respiratory effort Cardio: Rate: regular rate Rhythm: regular rhythm GI: Palpation (GI): Soft to palpation and nontender Extrem: Other: improving erythema DS: Data Data Completed and Pending Labs on day of discharge: Laboratory Results - last 24 hr 02/10/22 02/10/22 02/10/22 07:44 10:54 15:17 POC Glucose 149 H 201 H 149 H 02/10/22 19:33 POC Glucose 210 H Discharge Plan Discharge Patient Disposition: Home Health Service Discharge Diagnosis: cellulitis Referrals: Billy Longoria MD [Primary Care Provider] - 1 Week Discharge Medications: New doxycycline hyclate 100 mg tablet 100 mg PO BID Qty: 28 0RF Continued miscellaneous medical supply Misc miscellaneous Rx Instructions: Electric Wheelchair. (DME) ELECTRIC WHEELCHAIR See Rx Instructions .Route .MEDSUPPLY Qty: 1 0RF Rx Instructions: As directed acetaminophen 500 mg Tablet 1,000 mg PO DAILY PRN (Reason: Pain, Mild) cholecalciferol (vitamin D3) 50 mcg (2,000 unit) capsule 50 mcg PO DAILY 90 Days Qty: 90 3RF pravastatin 40 mg tablet 40 mg PO DAILY Qty: 90 3RF ipratropium-albuterol 0.5 mg-3 mg(2.5 mg base)/3 mL solution for nebulization 3 ml inhalation Q6H PRN (Reason: wheezing) 30 Days Qty: 360 3RF glipizide 10 mg tablet 10 mg PO BID 90 Days Qty: 180 1RF metformin 500 mg tablet 500 mg PO BID 90 Days Qty: 180 1RF gabapentin 100 mg capsule 200 mg PO TID 30 Days Qty: 180 0RF aspirin 81 mg tablet,delayed release (DR/EC) 81 mg PO DAILY Qty: 30 0RF Discontinued lisinopril 20 mg tablet 20 mg PO DAILY 90 Days Qty: 90 1RF Discharge Orders: Discharge Order (Routine); Ordered 02/11/22 Ordered By: Clark Stearns Diet: Diabetic diet Activity on Discharge: As tolerated Stand Alone Forms: Patient Portal Discharge page Care Plan Goals: recovery Health Concerns: cellulitis Plan of Treatment: 14 days doxy, follow up with wound care Assessment: see above
--- NOTE | 2022-02-11 07:10 | W.MHC.F2F ---
Service Date Service Date: 02/11/22 Encounter Date of encounter: 02/11/22 Reasons for Services Signs and symptoms assessed: leg cellulitis Reason for retirement: wound care, medication management, medication treatment and teach disease management Homebound: Leaving the home is medically contraindicated at this time without the asist of a device and/or another person due th the listed conditions above and below. Reason homebound: unsteady gait / fall risk Certification: Based on the above findings, I certify that this patient is confined to the home and needs intermittent retirement care, physical therapy and/or speech therapy, or continues to need occupational therapy. The patient is under my care, and I have initiated the establishment of the plan of care. The patient will be followed by a physician who will periodically review the plan of care.
[2022-02-11 07:50] VITALS: BP 109/53; PULSE 61; RESP 18; TEMP 36.4; O2SAT 93
[2022-02-11 07:56] LABS: Glucose, Whole Blood 150 mg/dL (60-115)
[2022-02-11 07:58] LABS: Creatinine Clr Calc Pharmacy 97.3; Estimated Glomerular Filt Rate > 60
--- NOTE | 2022-02-11 09:13 | MHC.CM.PN ---
PT TO DC HOME TODAY WITH RESUMPTION OF SERVICES [facility]END[facility] NOTIFIED VIA [facility], FACE TO FACE AND DC SUMMARY SENT CHAIR [facility] TRANSPORT REQUESTED FOR 1000 HOURS [facility]IA [facility]
[2022-02-11] MEDS: Aspirin Enteric Coated 81 MG TABLET.DR PO (09:16)
[2022-02-11] MEDS: Pravastatin Sodium 40 MG TABLET PO (09:16)
[2022-02-11] MEDS: Gabapentin 100 MG CAPSULE 200 MG PO (09:16)
[2022-02-11] MEDS: Nicotine 14 MG PATCH.TD24 TRANSDERMA (09:17)
[2022-02-11] MEDS: oxyCODONE HCl Immed Release 5 MG TABLET PO (09:17)
[2022-02-11 11:04] VITALS: BP 101/51; PULSE 61; RESP 18; TEMP 36.6; O2SAT 96
[2022-02-11 11:16] LABS: Glucose, Whole Blood 202 mg/dL (60-115)
[2022-02-11] MEDS: Insulin Lispro 100 UNIT/ML 3 ML VIAL SUBCUT (12:12)
== END 2022-02-11 15:20 | disposition home health service (06) | DRG 638 ==
LOC: HO.ED 15:43 → HO.EDOVER 16:36 → HO.S3 18:16
PROVIDERS: Nurse Practitioner Acute Care; Admitting Provider Physician Assistant Medical; Emergency Provider Emergency Medicine; PCP Internal Medicine; Visit Provider Internal Medicine
DX: E11.628 Type 2 diabetes mellitus with other skin complications (principal); I87.332 Chronic venous hypertension (idiopathic) with ulcer and inflammation of left lower extremity; L03.116 Cellulitis of left lower limb; L97.929 Non-pressure chronic ulcer of unspecified part of left lower leg with unspecified severity; I25.10 Atherosclerotic heart disease of native coronary artery without angina pectoris; J44.9 Chronic obstructive pulmonary disease, unspecified; E78.5 Hyperlipidemia, unspecified; E11.42 Type 2 diabetes mellitus with diabetic polyneuropathy; E66.9 Obesity, unspecified; Z68.32 Body mass index [BMI] 32.0-32.9, adult; F17.210 Nicotine dependence, cigarettes, uncomplicated; Z20.822 Contact with and (suspected) exposure to COVID-19; Z71.6 Tobacco abuse counseling; Z91.013 Allergy to seafood; Z79.82 Long term (current) use of aspirin; Z79.84 Long term (current) use of oral hypoglycemic drugs; Z79.899 Other long term (current) drug therapy
CPT/HCPCS: 36415; 71045; 73590; 80048; 80076; 80202; 82565; 82947; 83605; 83690; 84484; 85025; 85027; 85652; 86140; 87040; 87635; 93005; 93971; 97162; 97530; 99285; J1170; J1650; J2543; J3370

== ENCOUNTER 2022-04-27 23:14 | Inpatient (IN) | payer MEDICARE, BC, SELFPAY ==
[2022-04-27 23:29] VITALS: BP 180/80; PULSE 98; O2SAT 96; BMI 31.6
--- NOTE | 2022-04-27 23:34 | ED_ITS ---
HPI - Extremity Problem General Chief complaint: Extremity Injury, Lower Stated complaint: Blisters on legs Time Seen by Provider: 04/27/22 23:23 Source: patient Mode of arrival: EMS Limitations: no limitations History of Present Illness HPI Narrative: Patient is 77 years old with history of type 2 diabetes insulin dependent, hyperlipidemia, peripheral neuropathy, chronic leg edema with recurrent cellulitis last admission was 01/29 it did receive vanco and IV Zosyn discharged on doxycycline patient said after that treatment patient wound improved or for last few days started seeping again with blister formation right lower extremity patient was seen by [facility] today and recommended to go to the hospital. Otherwise patient denies any other symptoms no fever no chills no significant leg pain Related Data Home Medications Medication Instructions Recorded Confirmed miscellaneous medical supply ea miscellaneous 10/25/21 03/14/22 acetaminophen 500 mg tablet 1,000 mg PO DAILY PRN Pain, Mild 02/03/22 03/14/22 Previous Rx's Medication Instructions Recorded aspirin 81 mg tablet,delayed 81 mg PO DAILY #30 tabs 04/12/20 release cholecalciferol (vitamin D3) 50 50 mcg PO DAILY 90 days #90 caps 03/15/21 mcg (2,000 unit) capsule ipratropium 0.5 mg-albuterol 3 mg 3 ml inhalation Q6H PRN wheezing 03/15/21 (2.5 mg base)/3 mL nebulization 30 days #360 mL soln pravastatin 40 mg tablet 40 mg PO DAILY #90 tabs 03/15/21 glipizide 10 mg tablet 10 mg PO BID 90 days #180 tabs 02/18/22 metformin 500 mg tablet 500 mg PO BID 90 days #180 tabs 02/18/22 ADJUSTABLE HEIGHT ARM ASSEMBLY -- #2 ea 03/29/22 E0973 BATTERY -- E2365 #1 ea 03/29/22 CUSHION SKIN PROTECTION LESS THAN #1 ea 03/29/22 22 -- E2503 ELECTRIC WHEELCHAIR #1 ea 03/29/22 HEEL LOOPS -- E0951 #2 ea 03/29/22 doxycycline hyclate 100 mg tablet 100 mg PO BID #28 tabs 03/30/22 gabapentin 300 mg capsule 300 mg PO TID pain 30 days #90 caps 04/18/22 Allergies Allergy/AdvReac Type Severity Reaction Status Date / Time Fish Containing Products Allergy Severe ANAPHYLAXIS Verified 04/27/22 23:28 shellfish derived Allergy Severe ANAPHYLAXIS Verified 04/27/22 23:28 Review of Systems Review of Systems: Yes all other systems are reviewed and are negative [facility] Past Medical History Medical History Benign essential hypertension CAD (coronary artery disease) COPD (chronic obstructive pulmonary disease) COPD (chronic obstructive pulmonary disease) Coronary artery disease Depression DM2 (diabetes mellitus, type 2) Erectile disorder due to medical condition in male HLD (hyperlipidemia) HTN (hypertension) Neuropathy Obesity (BMI 30-39.9) Obesity (BMI 30.0-34.9) FADY (obstructive sleep apnea) Primary osteoarthritis of both knees Psoriasis Pulmonary hypertension Pure hypercholesterolemia Type 2 diabetes mellitus with diabetic neuropathy, unspecified Vitamin D deficiency Surgical History No pertinent past surgical history Family History Family History Father Medical history unknown Mother Cancer Social History Social History Household Members: None Housing: House Do you presently have visiting nurse or other home services: Yes (homemaker 3 hours of fridays) Alcohol intake: current Alcohol intake frequency: holidays/special occasions only Alcohol type: beer and wine Patient Tobacco Use Status: Current everyday Tobacco user Tobacco use type: Cigarette Cigarettes Per Day: 10 Years Smoked: 59 years e-Cigarette/Vaping Use: Never Used Second Hand Smoke Exposure: Yes Advance Directives: Yes Advance Directives on File: Yes Advance Directives Date on File: 02/03/22 service: No Current occupational status: retired Cognitive needs: No Hearing needs: No Vision needs: No Physical Exam Vital Signs: Vital Signs: Last Vital Signs Temp 98.2 F 04/28/22 03:30 Pulse 75 04/28/22 03:30 Resp 18 04/28/22 03:30 BP 147/55 H 04/28/22 03:30 Pulse Ox 100 04/28/22 03:30 O2 Del Method 04/28/22 03:30 BMI result Body Mass Index 31.6 Appearance: Alert. Oriented X3. No acute distress. Eyes: No pallor or icterus ENT: Pharynx normal. Oral Mucosa moist Neck: Normal inspection. Neck supple. CVS: Normal heart rate and rhythm. Pulses normal. Respiratory: No respiratory distress. Equal air entry bilateral, no wheezing/rales/rhonchi Abdomen: Soft and nontender. Bowel sounds are present, no mass palpable, no CVA tenderness Skin: Skin warm and dry. Normal skin color. Normal skin turgor. Extremities: 3+ lower extremity edema. No calf tenderness Neuro: Oriented X 3. No motor deficit. No sensory deficit.No cerebellar signs , cranial nerves II-XII intact Extrem: Other: Medications Administered Generic Name Dose Route Start Last Admin Trade Name Freq PRN Reason Stop Dose Admin Enoxaparin Sodium 40 mg 04/28/22 06:00 04/28/22 06:25 Enoxaparin Sodium 40 Mg/0.4 Ml Syringe SUBCUT 40 mg Q24H SHELBIE Administration Discontinued Medications Generic Name Dose Route Start Last Admin Trade Name Freq PRN Reason Stop Dose Admin Vancomycin HCl 1,000 mg/ 270 mls @ 270 mls/hr 04/28/22 03:05 04/28/22 04:37 Sodium Chloride IV 04/28/22 04:04 270 mls/hr ONCE ONE Administration Ceftriaxone Sodium 1 gm/ 50 mls @ 100 mls/hr 04/28/22 03:05 04/28/22 04:35 Sodium Chloride IV 04/28/22 03:34 100 mls/hr ONCE ONE Administration MDM - Extremity (Nontraumatic) MDM Narrative Medical decision making narrative: Patient with recurrent cellulitis of lower extremities with chronic leg edema comes here with recurrence of erythema with serous discharge with blisters. Will admit patient for IV antibiotic. Lab Data Attestation: I reviewed the patient's lab results. Result diagrams: 04/28/22 06:05 04/28/22 06:05 Labs: Lab Results 04/28/22 04/28/22 04/28/22 Range/Units 00:51 00:52 00:52 WBC (4.8-10.8) X10*3/uL RBC (4.60-5.80) X10*6/uL Hgb (14.0-18.0) g/dl Hct (42.0-52.0) % MCV (80.0-98.0) fL MCH (27.0-33.0) pg MCHC (31.0-36.0) g/dl RDW (11.0-16.0) % Plt Count (160-400) X10*3/uL MPV (9.4-12.4) fL Immature Gran % (Auto) (0.0-0.4) % Neut % (Auto) (45-73) % Lymph % (Auto) (20-40) % Evangeline % (Auto) (2-11) % Eos % (Auto) (0-4) % Baso % (Auto) (0-2) % Lymph # (Auto) (1.2-4.9) X10*3/uL Evangeline # (Auto) (0.1-1.2) X10*3/uL Eos # (Auto) (0.0-0.4) X10*3/uL Baso # (Auto) (0.0-0.2) X10*3/uL Abs Immat Gran (auto) (0.00-0.03) X10*3/uL Absolute Neuts (auto) (2.0-8.3) x10*3/uL Absolute Nucleated RBC (0.0-0.012) X10*3/uL Nucleated RBC % (auto) (0.0-0.2) /100WBC PT (10.0-13.1) SEC INR (0.9-1.1) D-Dimer High Sensitivty NG/ML Sodium 139 (135-145) mmol/L Potassium 4.2 (3.3-5.1) mmol/L Chloride 105 (96-108) mmol/L Carbon Dioxide 24 (22-29) mmol/L Anion Gap 14 (12-20) BUN 11 (9-16) mg/dL Creatinine 0.86 (0.5-1.4) mg/dL Estim Creat Clear Calc 99.3 Estimated GFR > 60 Random Glucose 129 H (60-115) mg/dL Lactic Acid 2.2 H* (0.5-2.0) mmol/L Lactic Acid F/U @ 2Hr (0.5-2.0) mmol/L Calcium 8.8 D (8.4-10.2) mg/dL Magnesium 1.8 (1.6-2.6) mg/dL Total Bilirubin 0.4 (0.0-1.0) mg/dL AST 11 (5-37) U/L ALT 8 (0-40) U/L Alkaline Phosphatase 84 (39-117) U/L Troponin I High Sens (<3.5-35.0) ng/L B-Natriuretic Peptide (<100) pg/mL Total Protein 6.4 L (6.5-8.0) g/dL Albumin 3.4 L (3.5-5.0) g/dL COVID-19 (BREONNA) Negative (Negative) COVID-19 Clin Com See Note 04/28/22 04/28/22 04/28/22 Range/Units 00:52 01:55 01:55 WBC 9.2 (4.8-10.8) X10*3/uL RBC 4.62 (4.60-5.80) X10*6/uL Hgb 14.2 (14.0-18.0) g/dl Hct 44.2 (42.0-52.0) % MCV 95.7 (80.0-98.0) fL MCH 30.7 (27.0-33.0) pg MCHC 32.1 (31.0-36.0) g/dl RDW 13.1 (11.0-16.0) % Plt Count 277 D (160-400) X10*3/uL MPV 9.5 (9.4-12.4) fL Immature Gran % (Auto) 0.3 (0.0-0.4) % Neut % (Auto) 62.9 (45-73) % Lymph % (Auto) 26.2 (20-40) % Evangeline % (Auto) 8.9 (2-11) % Eos % (Auto) 1.4 (0-4) % Baso % (Auto) 0.3 (0-2) % Lymph # (Auto) 2.4 (1.2-4.9) X10*3/uL Evangeline # (Auto) 0.8 (0.1-1.2) X10*3/uL Eos # (Auto) 0.1 (0.0-0.4) X10*3/uL Baso # (Auto) 0.0 (0.0-0.2) X10*3/uL Abs Immat Gran (auto) 0.03 (0.00-0.03) X10*3/uL Absolute Neuts (auto) 5.8 (2.0-8.3) x10*3/uL Absolute Nucleated RBC 0.000 (0.0-0.012) X10*3/uL Nucleated RBC % (auto) 0.0 (0.0-0.2) /100WBC PT 13.1 (10.0-13.1) SEC INR 1.1 (0.9-1.1) D-Dimer High Sensitivty 287 NG/ML Sodium (135-145) mmol/L Potassium (3.3-5.1) mmol/L Chloride (96-108) mmol/L Carbon Dioxide (22-29) mmol/L Anion Gap (12-20) BUN (9-16) mg/dL Creatinine (0.5-1.4) mg/dL Estim Creat Clear Calc Estimated GFR Random Glucose (60-115) mg/dL Lactic Acid (0.5-2.0) mmol/L Lactic Acid F/U @ 2Hr (0.5-2.0) mmol/L Calcium (8.4-10.2) mg/dL Magnesium (1.6-2.6) mg/dL Total Bilirubin (0.0-1.0) mg/dL AST (5-37) U/L ALT (0-40) U/L Alkaline Phosphatase (39-117) U/L Troponin I High Sens (<3.5-35.0) ng/L B-Natriuretic Peptide 48 (<100) pg/mL Total Protein (6.5-8.0) g/dL Albumin (3.5-5.0) g/dL COVID-19 (BREONNA) (Negative) COVID-19 Clin Com 04/28/22 04/28/22 Range/Units 01:55 03:25 WBC (4.8-10.8) X10*3/uL RBC (4.60-5.80) X10*6/uL Hgb (14.0-18.0) g/dl Hct (42.0-52.0) % MCV (80.0-98.0) fL MCH (27.0-33.0) pg MCHC (31.0-36.0) g/dl RDW (11.0-16.0) % Plt Count (160-400) X10*3/uL MPV (9.4-12.4) fL Immature Gran % (Auto) (0.0-0.4) % Neut % (Auto) (45-73) % Lymph % (Auto) (20-40) % Evangeline % (Auto) (2-11) % Eos % (Auto) (0-4) % Baso % (Auto) (0-2) % Lymph # (Auto) (1.2-4.9) X10*3/uL Evangeline # (Auto) (0.1-1.2) X10*3/uL Eos # (Auto) (0.0-0.4) X10*3/uL Baso # (Auto) (0.0-0.2) X10*3/uL Abs Immat Gran (auto) (0.00-0.03) X10*3/uL Absolute Neuts (auto) (2.0-8.3) x10*3/uL Absolute Nucleated RBC (0.0-0.012) X10*3/uL Nucleated RBC % (auto) (0.0-0.2) /100WBC PT (10.0-13.1) SEC INR (0.9-1.1) D-Dimer High Sensitivty NG/ML Sodium (135-145) mmol/L Potassium (3.3-5.1) mmol/L Chloride (96-108) mmol/L Carbon Dioxide (22-29) mmol/L Anion Gap (12-20) BUN (9-16) mg/dL Creatinine (0.5-1.4) mg/dL Estim Creat Clear Calc Estimated GFR Random Glucose (60-115) mg/dL Lactic Acid (0.5-2.0) mmol/L Lactic Acid F/U @ 2Hr 1.2 (0.5-2.0) mmol/L Calcium (8.4-10.2) mg/dL Magnesium (1.6-2.6) mg/dL Total Bilirubin (0.0-1.0) mg/dL AST (5-37) U/L ALT (0-40) U/L Alkaline Phosphatase (39-117) U/L Troponin I High Sens 7.2 (<3.5-35.0) ng/L B-Natriuretic Peptide (<100) pg/mL Total Protein (6.5-8.0) g/dL Albumin (3.5-5.0) g/dL COVID-19 (BREONNA) (Negative) COVID-19 Clin Com Discharge Plan Discharge Clinical Impression: Cellulitis Patient Disposition: Admitted As Inpatient
[2022-04-27 23:35] VITALS: BP 143/83; PULSE 90; RESP 16; TEMP 36.7; O2SAT 98
[2022-04-28 01:04] LABS: INTERNATIONAL NORM RATIO 1.1 (0.9-1.1); Prothrombin Time 13.1 SEC (10.0-13.1)
[2022-04-28 01:06] LABS: D Dimer High Sensitivity 287 NG/ML
[2022-04-28 01:07] VITALS: BP 121/55; PULSE 82; RESP 18; O2SAT 98
[2022-04-28 01:08] LABS: COVID-19 Test Negative (Negative)
[2022-04-28 01:15] LABS: Alanine Aminotransferase 8 U/L (0-40); Albumin Level 3.4 g/dL (3.5-5.0); Alkaline Phosphatase 84 U/L (39-117); Anion Gap 14 (12-20); Aspartate Amino Transferase 11 U/L (5-37); Bilirubin Total 0.4 mg/dL (0.0-1.0); Blood Urea Nitrogen 11 mg/dL (9-16); Calcium 8.8 mg/dL (8.4-10.2); Carbon Dioxide 24 mmol/L (22-29); Chloride 105 mmol/L (96-108); Creatinine Clr Calc Pharmacy 99.3; Estimated Glomerular Filt Rate > 60; Glucose Random 129 mg/dL (60-115); Magnesium 1.8 mg/dL (1.6-2.6); Potassium 4.2 mmol/L (3.3-5.1); Sodium 139 mmol/L (135-145); Total Protein 6.4 g/dL (6.5-8.0)
[2022-04-28 01:17] LABS: Lactic Acid 2.2 mmol/L (0.5-2.0)
[2022-04-28 02:02] LABS: MANUAL DIFF FLAG NO
[2022-04-28 02:04] LABS: Basophils Percent Auto 0.3 % (0-2); Eosinophils Absolute Auto 0.1 X10*3/uL (0.0-0.4); Eosinophils Percent Auto 1.4 % (0-4); Hematocrit 44.2 % (42.0-52.0); Hemoglobin 14.2 g/dl (14.0-18.0); Imm Gran Abs Auto 0.03 X10*3/uL (0.00-0.03); Imm Gran Pct Auto 0.3 % (0.0-0.4); Lymphocytes Absolute Auto 2.4 X10*3/uL (1.2-4.9); Lymphocytes Percent Auto 26.2 % (20-40); Mean Corpuscular HGB Conc 32.1 g/dl (31.0-36.0); Mean Corpuscular Hemoglobin 30.7 pg (27.0-33.0); Mean Corpuscular Volume 95.7 fL (80.0-98.0); Mean Platelet Volume 9.5 fL (9.4-12.4); Monocytes Absolute Auto 0.8 X10*3/uL (0.1-1.2); Monocytes Percent Auto 8.9 % (2-11); Neutrophils Absolute Auto 5.8 x10*3/uL (2.0-8.3); Neutrophils Percent Auto 62.9 % (45-73); Platelet Count 277 X10*3/uL (160-400); Red Blood Count 4.62 X10*6/uL (4.60-5.80); Red Cell Distribution Width 13.1 % (11.0-16.0); White Blood Count 9.2 X10*3/uL (4.8-10.8)
[2022-04-28 02:25] LABS: Troponin-I High Sensitivity 7.2 ng/L (<3.5-35.0)
--- NOTE | 2022-04-28 02:34 | PC.NURSE ---
Pt. alert and oriented, resting in bed watching tv.
[2022-04-28 02:54] LABS: Reflex Lactate? Lactic Acid Added
[2022-04-28 03:30] VITALS: BP 147/55; PULSE 75; RESP 18; TEMP 36.8; O2SAT 100
[2022-04-28 03:42] LABS: B Type Natriuretic Peptide 48 pg/mL (<100)
[2022-04-28 03:44] LABS: ~Lactic Acid-LAB USE ONLY 1.2 mmol/L (0.5-2.0)
--- NOTE | 2022-04-28 04:31 | P.HPHOSP_ITS ---
History of Present Illness Date of Service: 04/28/22 Chief Complaint: Lower extremity wounds This is a 77-year-old male with pertinent history of noninsulin dependent type 2 diabetes mellitus, mixed hyperlipidemia, peripheral neuropathy presents to the emergency department at the behest of PCP for evaluation of lower extremity wounds. Patient was admitted about 3 months ago for left lower extremity cellulitis treated with IV vancomycin and discharged on p.o. doxycycline. Patient states his wounds in the lower extremity were improving until recently. Patient has wound care at home who noticed worsening of the wounds of left lower extremity with purulent discharge over the last few days. Also had associated redness and pain. Patient states his right lower extremity also developed a blister and started seeping. Photos was sent by wound care to patient's PCP recommended for the patient to come to the ER. Patient denies fever, chills, nausea, vomiting. Denies chest discomfort, palpitation, shortness of breath, abdominal discomfort, changes in urinary or bowel habits. Review of Systems Constitutional: Constitutional: Reports no additional constitutional complaints Cardiovascular: Cardiovascular: Reports no additional cardiovascular com plaints Respiratory: Respiratory: Reports no additional respiratory complaints Gastrointestinal: Gastrointestinal: Reports no additional gastrointestinal complaints Genitourinary: Genitourinary: Reports no additional male genitourinary co mplaints [facility] Medical History (Updated 04/28/22 @ 04:41 by Christel Gaines MD) Benign essential hypertension CAD (coronary artery disease) COPD (chronic obstructive pulmonary disease) COPD (chronic obstructive pulmonary disease) Coronary artery disease Depression DM2 (diabetes mellitus, type 2) Erectile disorder due to medical condition in male HLD (hyperlipidemia) HTN (hypertension) Neuropathy Obesity (BMI 30-39.9) Obesity (BMI 30.0-34.9) FADY (obstructive sleep apnea) Primary osteoarthritis of both knees Psoriasis Pulmonary hypertension Pure hypercholesterolemia Type 2 diabetes mellitus with diabetic neuropathy, unspecified Vitamin D deficiency Family History Father Medical history unknown Mother Cancer Surgical History No pertinent past surgical history Social History Household Members: None Housing: House Do you presently have visiting nurse or other home services: Yes (homemaker 3 hours of fridays) Alcohol intake: current Alcohol intake frequency: holidays/special occasions only Alcohol type: beer and wine Patient Tobacco Use Status: Current everyday Tobacco user Tobacco use type: Cigarette Cigarettes Per Day: 10 Years Smoked: 59 years e-Cigarette/Vaping Use: Never Used Second Hand Smoke Exposure: Yes Advance Directives: Yes Advance Directives on File: Yes Advance Directives Date on File: 02/03/22 service: No Current occupational status: retired Cognitive needs: No Hearing needs: No Vision needs: No Meds Allergies Allergy/AdvReac Type Severity Reaction Status Date / Time Fish Containing Products Allergy Severe ANAPHYLAXIS Verified 04/27/22 23:28 shellfish derived Allergy Severe ANAPHYLAXIS Verified 04/27/22 23:28 Active Medications: Current Medications Acetaminophen (Acetaminophen 325 Mg Tablet) 650 mg PO Q6H PRN PRN Reason: Pain, Mild (Pain Scale 1-3) Enoxaparin Sodium (Enoxaparin Sodium 40 Mg/0.4 Ml Syringe) 40 mg SUBCUT Q24H [facility] Melatonin (Melatonin 3 Mg Tablet) 6 mg PO BEDTIME PRN PRN Reason: Insomnia Ondansetron HCl (Ondansetron Hcl 4 Mg/2 Ml Vial) 4 mg IVPUSH Q8H PRN PRN Reason: Nausea and Vomiting Pharmacy Consult (Consult Rx Vancomycin Dosing) 1 each MISCELLANE DAILY PRN PRN Reason: Consult order Pharmacy Consult (Consult Rx Vancomycin Dosing) 1 each MISCELLANE DAILY PRN PRN Reason: Consult order Pharmacy Consult (Consult Rx Perform Med Rec) 1 each MISCELLANE ONCE PRN PRN Reason: Consult order Sodium Chloride (0.9 % Sodium Chloride Flush 3 Ml Syringe) 3 ml IVFLUSH QSHIFT [facility] Home Medications Medication Instructions Recorded Confirmed Last Taken Type miscellaneous medical supply ea miscellaneous 10/25/21 03/14/22 Unknown History acetaminophen 500 mg tablet 1,000 mg PO DAILY PRN Pain, Mild 02/03/22 03/14/22 Unknown History Physical Exam Vital Signs and Narrative: Vital Signs: Last Vital Signs Temp 98.2 F 04/28/22 03:30 Pulse 75 04/28/22 03:30 Resp 18 04/28/22 03:30 BP 147/55 H 04/28/22 03:30 Pulse Ox 100 04/28/22 03:30 O2 Del Method 04/28/22 03:30 BMI result Body Mass Index 31.6 Elderly male lying in bed in no distress Neck supple, no JVD Regular rate and rhythm, S1-S2 heard Regular breath sounds bilaterally, no wheezing or crackles appreciated Abdomen soft nontender, no guarding, no rigidity Patient is awake, alert and oriented to self, place, time and person ; no focal motor deficit Skin: Left lower extremity with venous stasis changes,extensive erythema, purulent discharge ; right lower extremity with erythema and purulent drainage Psych: Normal mood Results Labs CBC and Chem 7: 04/28/22 01:55 04/28/22 00:52 Labs: Laboratory Results - last 24 hr 04/28/22 04/28/22 04/28/22 00:51 00:52 00:52 MCV MCH MCHC RDW Plt Count MPV Immature Gran % (Auto) Neut % (Auto) Lymph % (Auto) Cole % (Auto) Eos % (Auto) Baso % (Auto) Lymph # (Auto) Cole # (Auto) Eos # (Auto) Baso # (Auto) Abs Immat Gran (auto) Absolute Neuts (auto) Absolute Nucleated RBC Nucleated RBC % (auto) PT INR D-Dimer High Sensitivty Anion Gap 14 Estim Creat Clear Calc 99.3 Estimated GFR > 60 Random Glucose 129 H Lactic Acid 2.2 H* Lactic Acid F/U @ 2Hr Calcium 8.8 D Magnesium 1.8 Total Bilirubin 0.4 AST 11 ALT 8 Alkaline Phosphatase 84 Troponin I High Sens B-Natriuretic Peptide Total Protein 6.4 L Albumin 3.4 L COVID-19 ([facility]) Negative COVID-19 Clin Com See Note 04/28/22 04/28/22 04/28/22 00:52 01:55 01:55 MCV 95.7 MCH 30.7 MCHC 32.1 RDW 13.1 Plt Count 277 D MPV 9.5 Immature Gran % (Auto) 0.3 Neut % (Auto) 62.9 Lymph % (Auto) 26.2 Cole % (Auto) 8.9 Eos % (Auto) 1.4 Baso % (Auto) 0.3 Lymph # (Auto) 2.4 Cole # (Auto) 0.8 Eos # (Auto) 0.1 Baso # (Auto) 0.0 Abs Immat Gran (auto) 0.03 Absolute Neuts (auto) 5.8 Absolute Nucleated RBC 0.000 Nucleated RBC % (auto) 0.0 PT 13.1 INR 1.1 D-Dimer High Sensitivty 287 Anion Gap Estim Creat Clear Calc Estimated GFR Random Glucose Lactic Acid Lactic Acid F/U @ 2Hr Calcium Magnesium Total Bilirubin AST ALT Alkaline Phosphatase Troponin I High Sens B-Natriuretic Peptide 48 Total Protein Albumin COVID-19 ([facility]) COVID-19 Clin Com 04/28/22 04/28/22 01:55 03:25 MCV MCH MCHC RDW Plt Count MPV Immature Gran % (Auto) Neut % (Auto) Lymph % (Auto) Cole % (Auto) Eos % (Auto) Baso % (Auto) Lymph # (Auto) Cole # (Auto) Eos # (Auto) Baso # (Auto) Abs Immat Gran (auto) Absolute Neuts (auto) Absolute Nucleated RBC Nucleated RBC % (auto) PT INR D-Dimer High Sensitivty Anion Gap Estim Creat Clear Calc Estimated GFR Random Glucose Lactic Acid Lactic Acid F/U @ 2Hr 1.2 Calcium Magnesium Total Bilirubin AST ALT Alkaline Phosphatase Troponin I High Sens 7.2 B-Natriuretic Peptide Total Protein Albumin COVID-19 ([facility]) COVID-19 Clin Com Assessment and Plan (1) Cellulitis of both lower extremities: Status: Acute (2) COPD (chronic obstructive pulmonary disease): Status: Acute (3) DM2 (diabetes mellitus, type 2): Status: Acute (4) Obesity (BMI 30-39.9): Status: Acute (5) HLD (hyperlipidemia): Status: Acute Plan This is a 77-year-old male with pertinent history of noninsulin dependent type 2 diabetes mellitus, mixed hyperlipidemia, peripheral neuropathy presents to the emergency department at the behest of PCP for evaluation of lower extremity wounds. #. Cellulitis (purulent) of lower extremity -L>R. Will admit patient and initiate IV vancomycin. Consulted Wound Care. -no concern for sepsis #. Ewr-wcbhdhp-ekzunqwyn type 2 diabetes mellitus -hold metformin, glipizide -initiate Accu-Cheks with sliding scale insulin #. COPD -not on home inhaler. DuoNeb p.r.n. #. Obesity -contributing to venous stasis in bilateral lower extremity. #. Mixed hyperlipidemia -continue statin Med rec pending DVT prophylaxis: Lovenox 40 mg daily Full code Diabetic diet Admit as inpatient and will require two night minimum hospital stay for IV antibiotics. Quality Stroke Does the patient have a stroke diagnosis?: No VTE Prior VTE?: No VTE Risk Level:: Medical - moderate - high VTE Device Contraindication: Treatment Not Indicated VTE Drug Contraindication: N/A - Med Ordered
[2022-04-28] MEDS: cefTRIAXone sodium 1 GM in 0.9 % Sodium Chloride 50 ML IV (04:35)
[2022-04-28] MEDS: vancomycin HCL 1,000 MG in 0.9 % Sodium Chloride 250 ML 270 MG IV (04:37)
[2022-04-28 06:17] LABS: MANUAL DIFF FLAG NO
[2022-04-28 06:19] LABS: Basophils Percent Auto 0.3 % (0-2); Eosinophils Absolute Auto 0.2 X10*3/uL (0.0-0.4); Hematocrit 46.7 % (42.0-52.0); Hemoglobin 14.6 g/dl (14.0-18.0); Imm Gran Abs Auto 0.03 X10*3/uL (0.00-0.03); Imm Gran Pct Auto 0.3 % (0.0-0.4); Lymphocytes Absolute Auto 2.9 X10*3/uL (1.2-4.9); Lymphocytes Percent Auto 32.4 % (20-40); Mean Corpuscular HGB Conc 31.3 g/dl (31.0-36.0); Mean Corpuscular Hemoglobin 30.4 pg (27.0-33.0); Mean Corpuscular Volume 97.1 fL (80.0-98.0); Mean Platelet Volume 9.8 fL (9.4-12.4); Monocytes Absolute Auto 0.9 X10*3/uL (0.1-1.2); Monocytes Percent Auto 9.6 % (2-11); Neutrophils Percent Auto 55.4 % (45-73); Platelet Count 265 X10*3/uL (160-400); Red Blood Count 4.81 X10*6/uL (4.60-5.80); Red Cell Distribution Width 12.9 % (11.0-16.0); White Blood Count 9.1 X10*3/uL (4.8-10.8)
[2022-04-28] MEDS: Enoxaparin Sodium 40 MG/0.4 ML SYRINGE SUBCUT (06:25)
[2022-04-28 06:33] LABS: Anion Gap 12 (12-20); Blood Urea Nitrogen 10 mg/dL (9-16); Calcium 8.7 mg/dL (8.4-10.2); Carbon Dioxide 27 mmol/L (22-29); Chloride 105 mmol/L (96-108); Creatinine Clr Calc Pharmacy 109.5; Estimated Glomerular Filt Rate > 60; Glucose Random 100 mg/dL (60-115); Potassium 4.1 mmol/L (3.3-5.1); Sodium 140 mmol/L (135-145)
[2022-04-28 07:41] LABS: Glucose, Whole Blood 100 mg/dL (60-115)
[2022-04-28 07:52] VITALS: BP 130/60; PULSE 88; RESP 20; O2SAT 98
[2022-04-28] MEDS: 0.9 % Sodium Chloride Flush 3 ML SYRINGE IVFLUSH ×2 (07:54→20:59)
--- NOTE | 2022-04-28 07:59 | PC.NURSE ---
pt alert and oriented, skin pwd, respirations even and unlabored, pt changed over into hospital attire, lower extremities with multiple reddish in color/open/weeping wounds
--- NOTE | 2022-04-28 08:35 | PHA.MEDREC ---
MED REC COMPLETE, NO ISSUES Pharmacy Consult ? Medication Reconciliation Pharmacy has completed the medication reconciliation.
--- NOTE | 2022-04-28 09:37 | PC.NURSE ---
patient a&ox3, vitals have been stable, pt using urinal in room, BLE wounds- removed dressings- previous dressings were stuck to the wounds- NS used to help take the dressings off, area was cleaned/dried, vaseline gauze, curad non stick and curlex applied. pt tolerated well although stated the removal of the old stuck on dressings was painful but tolerable. pt has been moved to a hospital bed out of stretcher for pt comfort, call arriaga within reach, will continue to monitor.
--- NOTE | 2022-04-28 14:03 | MHC.CM.PN ---
IMM 04/28/22 Male 77 DX MACIEJ LE cellutis. He was sent in by [facility], visiting nurse. He lives by himself. He has [facility] and [facility] in place. He receives [employer] on wheels and Home making services. He has an electric WC. VAX 2x [employer]. HCP on file. DP Home with resumption of [facility] and [facility]. BLS transport will be needed.
--- NOTE | 2022-04-28 14:13 | PM.EVENT ---
Event Note Date of Service: 04/28/22 Event Note: 77-year-old male with pertinent history of non insulin dependent type 2 diabetes mellitus, mixed hyperlipidemia, peripheral neuropathy presents to the emergency department at request of PCP for evaluation of lower extremity wounds. #.? Cellulitis (purulent) of lower extremity -L>R.?continue IV vancomycin, no sepsis, normal CBC, normal electrolytes await wound care consult #.? Oug-kbqaiqc-xgruabllf type 2 diabetes mellitus - blood sugars stable,hold metformin and glipizide, continue diabetic diet and insulin sliding scale #.? COPD resume home inhalers no acute exacerbation #.? Obesity -contributing to venous stasis in bilateral lower extremity. #.? Mixed hyperlipidemia -continue statin DVT prophylaxis:? Lovenox 40 mg daily Full code
[2022-04-28 14:43] LABS: Glucose, Whole Blood 135 mg/dL (60-115)
[2022-04-28] MEDS: Gabapentin 300 MG CAPSULE PO ×2 (15:42→20:58)
[2022-04-28 18:22] LABS: Glucose, Whole Blood 120 mg/dL (60-115)
[2022-04-28 19:38] VITALS: BP 143/67; PULSE 87; RESP 18; TEMP 36.7; O2SAT 98
[2022-04-28 19:44] LABS: Glucose, Whole Blood 161 mg/dL (60-115)
--- NOTE | 2022-04-28 20:30 | PC.NURSE ---
patient has meds from home but does not want us to store them ,will send them back home with family
[2022-04-28] MEDS: Pravastatin Sodium 40 MG TABLET PO (20:58)
[2022-04-28] MEDS: guaiFENesin DM 100/10/5 ML 5 ML SYRUP PO (21:59)
--- NOTE | 2022-04-28 22:37 | PC.NURSE ---
Pt seen on bed c/o intermitent persistent cough, no SOB, LS dim, pt requesting for some Robitussin, Dr. Acosta was notified, med given.
[2022-04-28 23:02] VITALS: BP 152/65; PULSE 70; RESP 18; TEMP 36.4; O2SAT 93
[2022-04-29 03:15] VITALS: BP 146/66; PULSE 70; RESP 14; TEMP 36.2; O2SAT 95
[2022-04-29] MEDS: Enoxaparin Sodium 40 MG/0.4 ML SYRINGE SUBCUT (05:32)
[2022-04-29 07:23] VITALS: BP 151/65; PULSE 66; RESP 20; TEMP 36.6; O2SAT 96
[2022-04-29 07:59] LABS: Glucose, Whole Blood 142 mg/dL (60-115)
[2022-04-29] MEDS: Gabapentin 300 MG CAPSULE PO ×3 (08:54→21:12)
[2022-04-29] MEDS: Acetaminophen 325 MG TABLET 650 MG PO (08:54)
[2022-04-29] MEDS: guaiFENesin DM 100/10/5 ML 5 ML SYRUP PO ×3 (08:54→21:24)
[2022-04-29] MEDS: Cholecalciferol (Vitamin D3) 25 MCG TABLET 50 MCG PO (08:54)
[2022-04-29] MEDS: 0.9 % Sodium Chloride Flush 3 ML SYRINGE IVFLUSH ×3 (08:55→21:30)
[2022-04-29] MEDS: Aspirin Enteric Coated 81 MG TABLET.DR PO (08:55)
[2022-04-29 09:24] LABS: Creatinine Clr Calc Pharmacy 118.7; Estimated Glomerular Filt Rate > 60
--- NOTE | 2022-04-29 10:17 | PHA.PROG ---
Admission Date/Time: April 28, 2022 04:29 Indication: SKIN Weight in k.934 kg Adjusted body weight in K [place] body weight in K.8 Obesity Dosing Indication % IBW: Serum Creatinine - Last 168 Hours 04/28/22 04/28/22 04/29/22 00:52 06:05 08:44 Creatinine 0.86 0.78 0.72 Estimated CrCl and GFR - Last 168 Hours 04/28/22 04/28/22 04/29/22 00:52 06:05 08:44 Estim Creat Clear Calc 99.3 109.5 118.7 Estimated GFR > 60 > 60 > 60 Vancomycin Loading Dose: 1999 Current Vancomycin Dosing Regimen: 1000 Q12H Vancomycin Monitoring using AUC goal of 400 - 600 range with trough as surrogate marker:492 Date and Time for next Vancomycin Level to be drawn:04/30/221999 Pharmacist Comments on Vancomycin Plan:PT HAD GOT ONE 1 GM DOSE VERY EARLY ON 04/28 @0437, IT WAS AN EXTENDED TIME BEFORE INPATIENT VANCO WAS ORDERED. MD SAAVEDRAED A LOADING DOSE OF 2 GM THEN CONT WITH A MAINTENANCE DOSE Vancomycin dosing will take advantage of [employer] as a clinical decision support tool that uses Bayesian modeling to calculate individual patient's pharmacokinetic parameters and forecast the patient's drug concentration time course with the target goal AUC 24 range of 400 - 600 mg/L/hr.
[2022-04-29 11:04] VITALS: BP 145/64; PULSE 66; RESP 20; TEMP 36.4; O2SAT 95
[2022-04-29] MEDS: Insulin Lispro 100 UNIT/ML 3 ML VIAL SUBCUT (11:36)
[2022-04-29 11:38] LABS: Glucose, Whole Blood 189 mg/dL (60-115)
--- NOTE | 2022-04-29 13:16 | P.PNIM_ITS ---
Subjective Subjective Date of Service: 04/29/22 Interval History: complaining of discomfort left leg, denies fever chills no other acute issues, tolerating diet no nausea, no vomiting, no abdominal pain, no diarrhea, does not wish to undergo aggressive intervention for left leg wounds. 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 Neck supple, no JVD Regular rate and rhythm, S1-S2 heard Regular breath sounds bilaterally, no wheezing or crackles appreciated Abdomen soft non tender, no guarding, no rigidity Neuro no focal motor deficit Skin: Left lower extremity with venous stasis changes,extensive erythema, purulent discharge, left leg bigger than right, right lower extremity with erythema and purulent drainage Psych: Normal mood Objective Data Active Medications Acetaminophen (Acetaminophen 325 Mg Tablet) 650 mg PO Q6H PRN PRN Reason: Pain, Mild (Pain Scale 1-3) Last Admin: 04/29/22 08:54 Dose: 650 mg Documented By: NAOMI Albuterol Sulfate (Albuterol Sulfate 90 Mcg 8 Gm Inhaler) 2 puff INHALE Q6H PRN PRN Reason: Respiratory Distress Albuterol/Ipratropium (Albuterol/Iprat 2.5/0.5mg 3 Ml Ampul.Neb) 3 ml INHALE Q6H PRN PRN Reason: wheezing Aspirin (Aspirin Enteric Coated 81 Mg Tablet.) 81 mg PO DAILY [facility] Last Admin: 04/29/22 08:55 Dose: 81 mg Documented By: NAOMI Dextrose (Dextrose 50 % 25 Gm/50 Ml Syringe) 25 gm IVPUSH Q15M PRN; Protocol PRN Reason: per Hypoglycemia Standing Ord. Enoxaparin Sodium (Enoxaparin Sodium 40 Mg/0.4 Ml Syringe) 40 mg SUBCUT Q24H [facility] Last Admin: 04/29/22 05:32 Dose: 40 mg Documented By: JOHNATHAN Gabapentin (Gabapentin 300 Mg Capsule) 300 mg PO TID [facility] Last Admin: 04/29/22 08:54 Dose: 300 mg Documented By: NAOMI Glucose (Glucose Gel 15 Gm Gel..Gram.) 15 gm PO Q15M PRN; Protocol PRN Reason: per Hypoglycemia Standing Ord. Guaifenesin/Dextromethorphan (Guaifenesin Dm 100/10/5 Ml 5 Ml Syrup) 5 ml PO Q4H PRN PRN Reason: Cough Last Admin: 04/29/22 08:54 Dose: 5 ml Documented By: NAOMI Vancomycin HCl 1,000 mg/ (Sodium Chloride) 270 mls @ 270 mls/hr IV Q12H [facility] Insulin Human Lispro (Insulin Lispro 100 Unit/Ml 3 Ml Vial) 0 unit SUBCUT QIDACHS [facility]; Protocol Last Admin: 04/29/22 11:36 Dose: 2 unit Documented By: NAOMI Melatonin (Melatonin 3 Mg Tablet) 6 mg PO BEDTIME PRN PRN Reason: Insomnia Ondansetron HCl (Ondansetron Hcl 4 Mg/2 Ml Vial) 4 mg IVPUSH Q8H PRN PRN Reason: Nausea and Vomiting Pharmacy Consult (Consult Rx Vancomycin Dosing) 1 each MISCELLANE DAILY PRN PRN Reason: Consult order Pravastatin Sodium (Pravastatin Sodium 40 Mg Tablet) 40 mg PO BEDTIME [facility] Last Admin: 04/28/22 20:58 Dose: 40 mg Documented By: JOHNATHAN Sodium Chloride (0.9 % Sodium Chloride Flush 3 Ml Syringe) 3 ml IVFLUSH QSHIFT [facility] Last Admin: 04/29/22 08:55 Dose: 3 ml Documented By: NAOMI Vitamin D (Cholecalciferol (Vitamin D3) 25 Mcg Tablet) 50 mcg PO DAILY [facility] Last Admin: 04/29/22 08:54 Dose: 50 mcg Documented By: NAOMI Labs CBC & Chem 7: 04/28/22 06:05 04/29/22 08:44 Labs: Laboratory Results - last 24 hr 04/28/22 04/28/22 04/28/22 14:40 18:16 19:35 Estim Creat Clear Calc Estimated GFR POC Glucose 135 H 120 H 161 H 04/29/22 04/29/22 04/29/22 07:26 08:44 11:07 Estim Creat Clear Calc 118.7 Estimated GFR > 60 POC Glucose 142 H 189 H Microbiology Microbiology Results: Microbiology 04/28/22 01:55 Blood Culture - Preliminary Blood - Venous No growth after 24 hours. 04/28/22 00:51 Blood Culture - Preliminary Blood - Venous No growth after 24 hours. Assessment and Plan (1) Cellulitis of both lower extremities: Status: Acute Plan 77-year-old male with pertinent history of non insulin dependent type 2 diabetes mellitus, mixed hyperlipidemia, peripheral neuropathy presents to the emergency department at request of PCP for evaluation of lower extremity wounds. #.? Cellulitis (purulent) of b/l lower extremity? -L>R.?continue IV vancomycin day 2, no sepsis, normal CBC, normal electrolytes await wound care consult blood cultures x2 no growth #.? [id number]-xmshqibbx type 2 diabetes mellitus - blood sugars stable,hold metformin , resume glipizide, continue diabetic diet and DC point of care q.i.d. and insulin sliding scale #.? COPD resume home inhalers no acute exacerbation #.? Obesity -contributing to venous stasis in bilateral lower extremity. #.? Mixed hyperlipidemia -continue statin DVT prophylaxis:? Lovenox 40 mg daily Full code patient will need continued inpatient hospitalization for bilateral lower extremity cellulitis requiring IV antibiotics Quality Stroke Does the patient have a stroke diagnosis?: No VTE Prior VTE?: No VTE Risk Level:: Medical - moderate - high VTE Device Contraindication: Treatment Not Indicated VTE Drug Contraindication: N/A - Med Ordered
[2022-04-29 15:32] VITALS: BP 128/61; PULSE 70; RESP 18; TEMP 36.8; O2SAT 94
[2022-04-29] MEDS: glipiZIDE 5 MG TABLET PO (15:54)
[2022-04-29 19:22] VITALS: BP 141/63; PULSE 72; RESP 18; TEMP 36.7; O2SAT 95
[2022-04-29 19:51] LABS: Glucose, Whole Blood 141 mg/dL (60-115)
[2022-04-29] MEDS: Pravastatin Sodium 40 MG TABLET PO (21:12)
[2022-04-29] MEDS: vancomycin HCL 1,000 MG in 0.9 % Sodium Chloride 250 ML 270 MG IV (21:13)
[2022-04-29 23:39] VITALS: BP 134/63; PULSE 65; RESP 18; TEMP 36.9; O2SAT 93
[2022-04-30] MEDS: guaiFENesin DM 100/10/5 ML 5 ML SYRUP PO ×2 (02:38→11:02)
[2022-04-30 03:55] VITALS: BP 140/64; PULSE 72; RESP 18; TEMP 36.8; O2SAT 96
[2022-04-30] MEDS: Enoxaparin Sodium 40 MG/0.4 ML SYRINGE SUBCUT (05:57)
[2022-04-30] MEDS: Acetaminophen 325 MG TABLET 650 MG PO (06:02)
[2022-04-30 07:38] VITALS: BP 144/66; PULSE 65; RESP 19; TEMP 37.4; O2SAT 94
--- NOTE | 2022-04-30 08:50 | P.CONGS_ITS ---
History of Present Illness Consult details Consult date: 04/30/22 Narrative: 77-year-old male with multiple medical problems including chronic venous stasis, coronary disease and diabetes, admitted for cellulitis of the leg. He says he undergoes dressing changes for both legs wrapped every other day visiting nurse. He said he is unable to see any wound clinic because he has difficulty with leaving his home. He apparently had noted that there was more weeping both his legs so he was sent to the emergency room. He denies any fever or chills. He does admit that he has had this chronic edema of both legs, the left more than the right with note of weeping for years. He was seen as an inpatient by Dr. Araujo [facility] last January 2022 and was advised to continue with gentle wraps on both legs. Review of Systems 2 Constitutional: Constitutional: Denies chills and Denies fever(s) Cardiovascular: Cardiovascular: Denies chest pain, Denies dyspnea and Denies dyspnea on exertion Respiratory: Respiratory: Denies cough, Denies dyspnea and Denies dyspnea on exertion Gastrointestinal: Gastrointestinal: Denies hematochezia and Denies change in bowel habits Genitourinary: Genitourinary: Denies hematuria and Denies difficulty urinating Musculoskeletal: Musculoskeletal: Denies back pain, Denies limited range of motion and Reports muscle weakness Neurologic: Denies focal weakness and Denies convulsions Psychiatric: Psychiatric: Denies depression and Denies mood swings [facility] Past Medical History Medical History (Updated 04/30/22 @ 08:55 by Ryley Correa MD) Benign essential hypertension CAD (coronary artery disease) COPD (chronic obstructive pulmonary disease) COPD (chronic obstructive pulmonary disease) Coronary artery disease Depression DM2 (diabetes mellitus, type 2) Erectile disorder due to medical condition in male HLD (hyperlipidemia) HTN (hypertension) Neuropathy Obesity (BMI 30-39.9) Obesity (BMI 30.0-34.9) FADY (obstructive sleep apnea) Primary osteoarthritis of both knees Psoriasis Pulmonary hypertension Pure hypercholesterolemia Stasis ulcer of right lower extremity Type 2 diabetes mellitus with diabetic neuropathy, unspecified Vitamin D deficiency Family History Family History Father Medical history unknown Mother Cancer Surgical History Surgical History No pertinent past surgical history Social History Social History Household Members: None Housing: Apartment Do you presently have visiting nurse or other home services: Yes Alcohol intake: current Alcohol intake frequency: holidays/special occasions only Alcohol type: beer and wine Patient Tobacco Use Status: Current everyday Tobacco user Tobacco use type: Cigarette Cigarette Packs Per Day: 0.5 Cigarettes Per Day: 10.0 Years Smoked: 50 Smoked in Last 30 Days: Yes e-Cigarette/Vaping Use: Never Used Patient Interested in Nicotine Replacement: No Patient Given Instructions on How to Stop Smoking: Yes Date Education Initiated: 04/21/22 Second Hand Smoke Exposure: No Use of substances other than those prescribed or required for medical reasons: No Currently Displaying Signs/Symptoms of Drug Intoxication Withdrawal: No Have you been hit, kicked, punched, or otherwise hurt by someone within the past year? If so, by whom?: No Do you feel safe in your current relationship?: No Current Relationship Is there a partner from a previous relationship who is making you feel unsafe now?: No Are you made to feel afraid or neglected: No [facility] Healthcare Practices: [email or web address] Advance Directives: Yes Advance Directives on File: Yes Advance Directives Date on File: 02/03/22 Do you have thoughts of harming others: None Do you have a plan to hurt others: No Plan Recently lost weight without trying: No Eating poorly because of decreased appetite: No Nutrition Risks: No Nutritional Risk service: No Current occupational status: retired Cognitive needs: No Hearing needs: No Vision needs: No Meds Allergies Allergy/AdvReac Type Severity Reaction Status Date / Time Fish Containing Products Allergy Severe ANAPHYLAXIS Verified 04/27/22 23:28 shellfish derived Allergy Severe ANAPHYLAXIS Verified 04/27/22 23:28 Active Medications: Current Medications Acetaminophen (Acetaminophen 325 Mg Tablet) 650 mg PO Q6H PRN PRN Reason: Pain, Mild (Pain Scale 1-3) Last Admin: 04/30/22 06:02 Dose: 650 mg Albuterol Sulfate (Albuterol Sulfate 90 Mcg 8 Gm Inhaler) 2 puff INHALE Q6H PRN PRN Reason: Respiratory Distress Albuterol/Ipratropium (Albuterol/Iprat 2.5/0.5mg 3 Ml Ampul.Neb) 3 ml INHALE Q6H PRN PRN Reason: wheezing Aspirin (Aspirin Enteric Coated 81 Mg Tablet.) 81 mg PO DAILY [facility] Last Admin: 04/29/22 08:55 Dose: 81 mg Enoxaparin Sodium (Enoxaparin Sodium 40 Mg/0.4 Ml Syringe) 40 mg SUBCUT Q24H [facility] Last Admin: 04/30/22 05:57 Dose: 40 mg Gabapentin (Gabapentin 300 Mg Capsule) 300 mg PO TID [facility] Last Admin: 04/29/22 21:12 Dose: 300 mg Glipizide (Glipizide 5 Mg Tablet) 5 mg PO BIDWM [facility] Last Admin: 04/29/22 15:54 Dose: 5 mg Guaifenesin/Dextromethorphan (Guaifenesin Dm 100/10/5 Ml 5 Ml Syrup) 5 ml PO Q4H PRN PRN Reason: Cough Last Admin: 04/30/22 02:38 Dose: 5 ml Vancomycin HCl 1,000 mg/ (Sodium Chloride) 270 mls @ 270 mls/hr IV Q12H [facility] Last Infusion: 04/29/22 22:53 Dose: Infused Melatonin (Melatonin 3 Mg Tablet) 6 mg PO BEDTIME PRN PRN Reason: Insomnia Ondansetron HCl (Ondansetron Hcl 4 Mg/2 Ml Vial) 4 mg IVPUSH Q8H PRN PRN Reason: Nausea and Vomiting Pharmacy Consult (Consult Rx Vancomycin Dosing) 1 each MISCELLANE DAILY PRN PRN Reason: Consult order Pravastatin Sodium (Pravastatin Sodium 40 Mg Tablet) 40 mg PO BEDTIME [facility] Last Admin: 04/29/22 21:12 Dose: 40 mg Sodium Chloride (0.9 % Sodium Chloride Flush 3 Ml Syringe) 3 ml IVFLUSH QSHIFT [facility] Last Admin: 04/29/22 21:30 Dose: 3 ml Vitamin D (Cholecalciferol (Vitamin D3) 25 Mcg Tablet) 50 mcg PO DAILY [facility] Last Admin: 04/29/22 08:54 Dose: 50 mcg Home Medications Medication Instructions Recorded Confirmed Last Taken Type acetaminophen 650 mg 650 mg PO Q8H PRN Pain (Scale 04/28/22 04/28/22 Unknown History tablet,extended release Score 1-3) albuterol sulfate 90 mcg/actuation 2 puff inhalation Q6H PRN 04/28/22 04/28/22 Unknown History aerosol inhaler Respiratory Distress pravastatin 40 mg tablet 40 mg PO BEDTIME 04/28/22 04/28/22 04/27/22 History Physical Exam Vital Signs: Vital Signs: Last Vital Signs Temp 99.3 F 04/30/22 07:38 Pulse 65 04/30/22 07:38 Resp 19 04/30/22 07:38 BP 144/66 H 04/30/22 07:38 Pulse Ox 94 04/30/22 07:38 O2 Del Method 04/30/22 07:38 BMI result Body Mass Index 31.6 Const: Other: In bed, appears frail General: comfortable and no acute distress Orientation/consciousness: patient oriented x3 Neck: Neck: Yes no lymphadenopathy Resp: Auscultation: clear to auscultation bilaterally Cardio: Rhythm: regular rhythm GI: Palpation (GI): Soft to palpation, nontender and no guarding Neuro: General: patient oriented x3 Extrem: Other: Edema of both lower extremities, left more than the right, with and superficial area of weeping ulcer on the anterior aspect the right leg, about 5 cm in widest diameter, no gangrenous areas, no pus; patchy areas of weeping on the leg which is more edematous Results Labs Result diagrams: 04/28/22 06:05 04/29/22 08:44 Labs: Abnormal lab results 04/29/22 04/29/22 Range/Units 11:07 19:25 POC Glucose 189 H 141 H (60-115) mg/dL BMP 04/29/22 08:44 Creatinine 0.72 All other labs normal. Imaging Additional studies: Laboratory Results WBC 9.1 X10*3/uL (4.8-10.8) 04/28/22 06:05 RBC 4.81 X10*6/uL (4.60-5.80) 04/28/22 06:05 Hgb 14.6 g/dl (14.0-18.0) 04/28/22 06:05 Hct 46.7 % (42.0-52.0) 04/28/22 06:05 MCV 97.1 fL (80.0-98.0) 04/28/22 06:05 MCH 30.4 pg (27.0-33.0) 04/28/22 06:05 MCHC 31.3 g/dl (31.0-36.0) 04/28/22 06:05 RDW 12.9 % (11.0-16.0) 04/28/22 06:05 Plt Count 265 X10*3/uL (160-400) 04/28/22 06:05 MPV 9.8 fL (9.4-12.4) 04/28/22 06:05 Immature Gran % (Auto) 0.3 % (0.0-0.4) 04/28/22 06:05 Neut % (Auto) 55.4 % (45-73) 04/28/22 06:05 Lymph % (Auto) 32.4 % (20-40) 04/28/22 06:05 [place] % (Auto) 9.6 % (2-11) 04/28/22 06:05 Eos % (Auto) 2.0 % (0-4) 04/28/22 06:05 Baso % (Auto) 0.3 % (0-2) 04/28/22 06:05 Lymph # (Auto) 2.9 X10*3/uL (1.2-4.9) 04/28/22 06:05 [place] # (Auto) 0.9 X10*3/uL (0.1-1.2) 04/28/22 06:05 Eos # (Auto) 0.2 X10*3/uL (0.0-0.4) 04/28/22 06:05 Baso # (Auto) 0.0 X10*3/uL (0.0-0.2) 04/28/22 06:05 Abs Immat Gran (auto) 0.03 X10*3/uL (0.00-0.03) 04/28/22 06:05 Absolute Neuts (auto) 5.0 x10*3/uL (2.0-8.3) 04/28/22 06:05 Absolute Nucleated RBC 0.000 X10*3/uL (0.0-0.012) 04/28/22 06:05 Nucleated RBC % (auto) 0.0 /100WBC (0.0-0.2) 04/28/22 06:05 PT 13.1 SEC (10.0-13.1) 04/28/22 00:52 INR 1.1 (0.9-1.1) 04/28/22 00:52 D-Dimer High Sensitivty 287 NG/ML 04/28/22 00:52 Sodium 140 mmol/L (135-145) 04/28/22 06:05 Potassium 4.1 mmol/L (3.3-5.1) 04/28/22 06:05 Chloride 105 mmol/L (96-108) 04/28/22 06:05 Carbon Dioxide 27 mmol/L (22-29) 04/28/22 06:05 Anion Gap 12 (12-20) 04/28/22 06:05 BUN 10 mg/dL (9-16) 04/28/22 06:05 Creatinine 0.72 mg/dL (0.5-1.4) 04/29/22 08:44 Estim Creat Clear Calc 118.7 04/29/22 08:44 Estimated GFR > 60 04/29/22 08:44 POC Glucose 141 mg/dL (60-115) H 04/29/22 19:25 Random Glucose 100 mg/dL (60-115) 04/28/22 06:05 Lactic Acid 2.2 mmol/L (0.5-2.0) H* 04/28/22 00:51 Lactic Acid F/U @ 2Hr 1.2 mmol/L (0.5-2.0) 04/28/22 03:25 Calcium 8.7 mg/dL (8.4-10.2) 04/28/22 06:05 Magnesium 1.8 mg/dL (1.6-2.6) 04/28/22 00:52 Total Bilirubin 0.4 mg/dL (0.0-1.0) 04/28/22 00:52 AST 11 U/L (5-37) 04/28/22 00:52 ALT 8 U/L (0-40) 04/28/22 00:52 Alkaline Phosphatase 84 U/L (39-117) 04/28/22 00:52 Troponin I High Sens 7.2 ng/L (<3.5-35.0) 04/28/22 01:55 B-Natriuretic Peptide 48 pg/mL (<100) 04/28/22 01:55 Total Protein 6.4 g/dL (6.5-8.0) L 04/28/22 00:52 Albumin 3.4 g/dL (3.5-5.0) L 04/28/22 00:52 COVID-19 (BREONNA) Negative (Negative) 04/28/22 00:52 COVID-19 Clin Com See Note 04/28/22 00:52 Assessment and Plan (1) Stasis ulcer of right lower extremity: Status: Acute He has chronic stasis ulcer of the right lower leg. There are no areas of necrosis or gangrene. There is no pus. There is edema of the left leg as well as with patchy areas of weeping. I have applied Xeroform dressings on both legs on these weeping areas and wrapped these with Kerlix rolls. I have elevate the legs on pillows and I have instructed him to make sure that this is done when he is at home. He does not seem to required debridement at this time. He may benefit from of wound consult here prior to discharge. He does state that he is being in care of by a visiting nurse at home who does his dressing changes 3 to 4 times a week. He otherwise does not appear to be septic. I have discussed the above with the hospitalist service. Procedures Date of Service Date of Service: 04/30/22
[2022-04-30] MEDS: Gabapentin 300 MG CAPSULE PO (10:05)
[2022-04-30] MEDS: glipiZIDE 5 MG TABLET PO (10:05)
[2022-04-30] MEDS: Cholecalciferol (Vitamin D3) 25 MCG TABLET 50 MCG PO (10:05)
[2022-04-30] MEDS: Aspirin Enteric Coated 81 MG TABLET.DR PO (10:05)
[2022-04-30] MEDS: 0.9 % Sodium Chloride Flush 3 ML SYRINGE IVFLUSH (10:06)
[2022-04-30] MEDS: vancomycin HCL 1,000 MG in 0.9 % Sodium Chloride 250 ML 270 MG IV (10:06)
[2022-04-30] MEDS: Doxycycline Monohydrate 100 MG CAPSULE PO (10:57)
[2022-04-30 11:54] VITALS: BP 121/58; PULSE 60; RESP 18; TEMP 37.2; O2SAT 95
[2022-04-30 11:58] LABS: Glucose, Whole Blood 152 mg/dL (60-115)
--- NOTE | 2022-04-30 12:36 | HO.WOUNDCONS ---
History of Present Illness Data of Consult Service Date: 04/30/22 Requesting physician: Christel Gaines Primary Care Provider: Paty Colon MD HPI Reason for consult: bilateral leg blisters [id number]: 77 year old male admitted for COPD exacerbation in setting of DM2 and recurrent leg cellulitis. Pictures reviewed show blisters and scaling. No fever reported. Review of Systems Review of Systems: No SOB. Denies fever. No leg pain until we begin to remove dressings. [facility] Medical History (Updated 04/30/22 @ 12:44 by SEA Qureshi) Benign essential hypertension CAD (coronary artery disease) COPD (chronic obstructive pulmonary disease) COPD (chronic obstructive pulmonary disease) Coronary artery disease Depression DM2 (diabetes mellitus, type 2) Erectile disorder due to medical condition in male HLD (hyperlipidemia) HTN (hypertension) Neuropathy Obesity (BMI 30-39.9) Obesity (BMI 30.0-34.9) FADY (obstructive sleep apnea) Primary osteoarthritis of both knees Psoriasis Pulmonary hypertension Pure hypercholesterolemia Stasis ulcer of right lower extremity Type 2 diabetes mellitus with diabetic neuropathy, unspecified Vitamin D deficiency Family History Father Medical history unknown Mother Cancer Surgical History No pertinent past surgical history Social History Household Members: None Housing: Apartment Do you presently have visiting nurse or other home services: Yes Alcohol intake: current Alcohol intake frequency: holidays/special occasions only Alcohol type: beer and wine Patient Tobacco Use Status: Current everyday Tobacco user Tobacco use type: Cigarette Cigarette Packs Per Day: 0.5 Cigarettes Per Day: 10.0 Years Smoked: 50 Smoked in Last 30 Days: Yes e-Cigarette/Vaping Use: Never Used Patient Interested in Nicotine Replacement: No Patient Given Instructions on How to Stop Smoking: Yes Date Education Initiated: 04/21/22 Second Hand Smoke Exposure: No Use of substances other than those prescribed or required for medical reasons: No Currently Displaying Signs/Symptoms of Drug Intoxication Withdrawal: No Have you been hit, kicked, punched, or otherwise hurt by someone within the past year? If so, by whom?: No Do you feel safe in your current relationship?: No Current Relationship Is there a partner from a previous relationship who is making you feel unsafe now?: No Are you made to feel afraid or neglected: No [facility] Healthcare Practices: [email or web address] Advance Directives: Yes Advance Directives on File: Yes Advance Directives Date on File: 02/03/22 Do you have thoughts of harming others: None Do you have a plan to hurt others: No Plan Recently lost weight without trying: No Eating poorly because of decreased appetite: No Nutrition Risks: No Nutritional Risk service: No Current occupational status: retired Cognitive needs: No Hearing needs: No Vision needs: No Meds Allergies Allergy/AdvReac Type Severity Reaction Status Date / Time Fish Containing Products Allergy Severe ANAPHYLAXIS Verified 04/27/22 23:28 shellfish derived Allergy Severe ANAPHYLAXIS Verified 04/27/22 23:28 Active Medications: Current Medications Acetaminophen (Acetaminophen 325 Mg Tablet) 650 mg PO Q6H PRN PRN Reason: Pain, Mild (Pain Scale 1-3) Last Admin: 04/30/22 06:02 Dose: 650 mg Albuterol Sulfate (Albuterol Sulfate 90 Mcg 8 Gm Inhaler) 2 puff INHALE Q6H PRN PRN Reason: Respiratory Distress Albuterol/Ipratropium (Albuterol/Iprat 2.5/0.5mg 3 Ml Ampul.Neb) 3 ml INHALE Q6H PRN PRN Reason: wheezing Aspirin (Aspirin Enteric Coated 81 Mg Tablet.Dr) 81 mg PO DAILY [facility] Last Admin: 04/30/22 10:05 Dose: 81 mg Doxycycline Monohydrate (Doxycycline Monohydrate 100 Mg Capsule) 100 mg PO Q12H [facility] Last Admin: 04/30/22 10:57 Dose: 100 mg Enoxaparin Sodium (Enoxaparin Sodium 40 Mg/0.4 Ml Syringe) 40 mg SUBCUT Q24H [facility] Last Admin: 04/30/22 05:57 Dose: 40 mg Gabapentin (Gabapentin 300 Mg Capsule) 300 mg PO TID [facility] Last Admin: 04/30/22 10:05 Dose: 300 mg Glipizide (Glipizide 5 Mg Tablet) 5 mg PO BIDWM [facility] Last Admin: 04/30/22 10:05 Dose: 5 mg Guaifenesin/Dextromethorphan (Guaifenesin Dm 100/10/5 Ml 5 Ml Syrup) 5 ml PO Q4H PRN PRN Reason: Cough Last Admin: 04/30/22 11:02 Dose: 5 ml Melatonin (Melatonin 3 Mg Tablet) 6 mg PO BEDTIME PRN PRN Reason: Insomnia Ondansetron HCl (Ondansetron Hcl 4 Mg/2 Ml Vial) 4 mg IVPUSH Q8H PRN PRN Reason: Nausea and Vomiting Pharmacy Consult (Consult Rx Vancomycin Dosing) 1 each MISCELLANE DAILY PRN PRN Reason: Consult order Pravastatin Sodium (Pravastatin Sodium 40 Mg Tablet) 40 mg PO BEDTIME [facility] Last Admin: 04/29/22 21:12 Dose: 40 mg Sodium Chloride (0.9 % Sodium Chloride Flush 3 Ml Syringe) 3 ml IVFLUSH QSHIFT [facility] Last Admin: 04/30/22 10:06 Dose: 3 ml Vitamin D (Cholecalciferol (Vitamin D3) 25 Mcg Tablet) 50 mcg PO DAILY [facility] Last Admin: 04/30/22 10:05 Dose: 50 mcg Home Medications Medication Instructions Recorded Confirmed Last Taken Type acetaminophen 650 mg 650 mg PO Q8H PRN Pain (Scale 04/28/22 04/28/22 Unknown History tablet,extended release Score 1-3) albuterol sulfate 90 mcg/actuation 2 puff inhalation Q6H PRN 04/28/22 04/28/22 Unknown History aerosol inhaler Respiratory Distress pravastatin 40 mg tablet 40 mg PO BEDTIME 04/28/22 04/28/22 04/27/22 History Physical Exam Vital Signs and Narrative: Vital Signs: Last Vital Signs Temp 99.0 F 04/30/22 11:54 Pulse 60 04/30/22 11:54 Resp 18 04/30/22 11:54 BP 121/58 L 04/30/22 11:54 Pulse Ox 95 04/30/22 11:54 O2 Del Method 04/30/22 11:54 BMI result Body Mass Index 31.6 left lower leg wound circumferential but much improved compared to picture with treatment of primary etiology. Xerform over nonscaled areas looks appropriate. No warmth or streaking to suggest cellulits. right mid garcia looks similar, dressings look good Results Labs CBC and Chem 7: 04/28/22 06:05 04/29/22 08:44 Labs: Laboratory Results - last 24 hr 04/29/22 04/30/22 19:25 11:02 POC Glucose 141 H 152 H Assessment and Plan (1) Acute stasis dermatitis: Status: Acute Plan no further recommendations, blisters resolving with current management strategy - xeroform and circumferential gauze. Avoid telfa. Left leg dressing left open - discussed with nursing aging department supervisor - unable to rewrap at this encounter.
--- NOTE | 2022-04-30 13:45 | MHC.CM.PN ---
Addendum entered by Lizette Moura 04/30/22 13:50: CM MET WITH PT TO DISCUSS DC CM INFORMED HIM HIS INSURANCE MAY NOT COVER BLS [facility] [facility] HE REPORTS HE CALLED HIS FRIEND AND THEY MAY BE ABLE TO TAKE HIM HOME HE WILL NEED A W/C TO THE CAR AND HAS ONE AT HOME THEY WILL MEET HIM OUTSIDE WITH Original Note: PT WILL DC HOME TODAY WITH [facility]UMPT[facility] PT WILL REQUIRE BLS TRANSPORT
--- NOTE | 2022-04-30 13:53 | P.F2F_ITS ---
Service Date Service Date: 04/30/22 Encounter Date of encounter: 04/30/22 Reasons for Services Signs and symptoms assessed: bilateral venous stasis ulcers Reason for custodial: wound care and diabetic teaching Homebound: Leaving the home is medically contraindicated at this time without the asist of a device and/or another person due th the listed conditions above and below. Reason homebound: weakness related to hospital stay Certification: Based on the above findings, I certify that this patient is confined to the home and needs intermittent custodial care, physical therapy and/or speech therapy, or continues to need occupational therapy. The patient is under my care, and I have initiated the establishment of the plan of care. The patient will be followed by a physician who will periodically review the plan of care.
--- NOTE | 2022-04-30 13:54 | PM.DS ---
DS: Providers Provider Date of Service: 04/30/22 Date of admission: 04/28/22 04:29 Primary care physician: Paty Colon MD Consults: 04/28/22 04:30 Consult to Wound Care Routine Consulting Provider: [facility] [place] Wound Care Management Reason for consultation: lower extremity cellulitis 04/30/22 08:38 Consult to General Surgery Routine Consulting Provider: Ryley Correa Reason for consultation: leg ulcers Has provider been notified: Yes DS: Diagnosis Discharge Diagnosis (1) Acute stasis dermatitis: Status: Acute DS: Summary Hospital Course Hospital Course: Date of Service: 04/28/22 Chief Complaint: Lower extremity wounds This is a 77-year-old male with pertinent history of noninsulin dependent type 2 diabetes mellitus, mixed hyperlipidemia, peripheral neuropathy presents to the emergency department at the behest of PCP for evaluation of lower extremity wounds.? Patient was admitted about 3 months ago for left lower extremity cellulitis treated with IV vancomycin and discharged on p.o. doxycycline.? Patient states his wounds in the lower extremity were improving until recently.? Patient has wound care at home who noticed worsening of the wounds of left lower extremity with purulent discharge over the last few days.? Also had associated redness and pain.? Patient states his right lower extremity also developed a blister and started seeping.? Photos was sent by wound care to patient's PCP recommended for the patient to come to the ER.? Patient denies fever, chills, nausea, vomiting.? Denies chest discomfort, palpitation, shortness of breath, abdominal discomfort, changes in urinary or bowel habits. hospital course 77-year-old male with pertinent history of non insulin dependent type 2 diabetes mellitus, mixed hyperlipidemia, peripheral neuropathy presents to the emergency department at request of PCP for evaluation of lower extremity wounds. #.? Cellulitis (purulent) of b/l lower extremity with venous stasis ulcers? -L>R.? redness improved no fever chills, patient initially treated with IV vancomycin x 2 days, blood cultures x2 are negative, no evidence of sepsis, patient seen by General surgery as well as wound care clinic they recommend to apply Xeroform dressing with gauze dressing, since patient appears to be stable he is being discharged home on by mouth doxycycline to finish a total 5 day course of antibiotic patient has VNA services for dressing change #.? [id number] type 2 diabetes mellitus - blood sugars stable, resume glipizide and metformin #.? COPD resume home inhalers no acute exacerbation #.? Obesity -contributing to venous stasis in bilateral lower extremity, recommend low calorie diet. #.? Mixed hyperlipidemia -continue statin , Time Spent with Patient Time attestation: Total time spent providing and/or coordinating discharge services: Discharge coordination time: Greater than 30 minutes Quality: Safe Use of Opioids Does Pt have an Active Cancer Diagnosis on the Problem List?: No Quality: Stroke Does the patient have a stroke diagnosis?: No Physical Exam Vital Signs: Vital Signs: Last Vital Signs Temp 99.0 F 04/30/22 11:54 Pulse 60 04/30/22 11:54 Resp 18 04/30/22 11:54 BP 121/58 L 04/30/22 11:54 Pulse Ox 95 04/30/22 11:54 O2 Del Method 04/30/22 11:54 BMI result Body Mass Index 31.6 Const: Other: General resting comfortably in bed no acute distress? Neck supple, no JVD Regular rate and rhythm, S1-S2 heard Regular breath sounds bilaterally, no wheezing or crackles appreciated Abdomen soft non tender, no guarding, no rigidity Neuro no focal motor deficit Skin: bilateral lower extremity venous stasis changes, scaly skin superficial weeping lesions, no deep wounds noted, hyperemia improved.Left leg bigger than rt. Psych: Normal mood DS: Data Data Completed and Pending Labs on day of discharge: Laboratory Results - last 24 hr 04/29/22 04/30/22 19:25 11:02 POC Glucose 141 H 152 H Preliminary micro results at discharge 04/28/22 01:55 Blood Culture - Preliminary Blood - Venous No growth after 48 hours. 04/28/22 00:51 Blood Culture - Preliminary Blood - Venous No growth after 48 hours. Discharge Plan Discharge Anticipated Discharge Date/Time: 04/30/22 13:36 Patient Disposition: Home Health Service Discharge Diagnosis: bilateral lower extremity venous stasis ulcers with cellulitis Referrals: [facility] [Outside] - 1 Week Paty Colon MD [Primary Care Provider] - 1 Week Discharge Medications: New doxycycline monohydrate 100 mg Capsule 100 mg PO Q12H Qty: 7 0RF Continued glipizide 10 mg tablet 10 mg PO BID 90 Days Qty: 180 1RF metformin 500 mg tablet 500 mg PO BID 90 Days Qty: 180 1RF (DME) CUSHION SKIN PROTECTION LESS THAN 22 -- E2503 See Rx Instructions .Route .MEDSUPPLY Qty: 1 0RF Rx Instructions: As directed (DME) ELECTRIC WHEELCHAIR See Rx Instructions .Route .MEDSUPPLY Qty: 1 0RF Rx Instructions: for lifetime use (DME) ADJUSTABLE HEIGHT ARM ASSEMBLY -- E0973 See Rx Instructions .Route .MEDSUPPLY Qty: 2 0RF Rx Instructions: As directed (DME) HEEL LOOPS -- E0951 See Rx Instructions .Route .MEDSUPPLY Qty: 2 0RF Rx Instructions: As directed (DME) BATTERY -- E2365 See Rx Instructions .Route .MEDSUPPLY Qty: 1 0RF Rx Instructions: As directed gabapentin 300 mg capsule 300 mg PO TID 30 Days Qty: 90 2RF albuterol sulfate 90 mcg/actuation Hfa Aerosol Inhaler 2 puff INHALATION Q6H PRN (Reason: Respiratory Distress) acetaminophen 650 mg Tablet Extended Release 650 mg PO Q8H PRN (Reason: Pain (Scale Score 1-3)) pravastatin 40 mg tablet 40 mg PO BEDTIME cholecalciferol (vitamin D3) 50 mcg (2,000 unit) capsule 50 mcg PO DAILY 90 Days Qty: 90 3RF ipratropium-albuterol 0.5 mg-3 mg(2.5 mg base)/3 mL solution for nebulization 3 ml inhalation Q6H PRN (Reason: wheezing) 30 Days Qty: 360 3RF aspirin 81 mg tablet,delayed release (DR/EC) 81 mg PO DAILY Qty: 30 0RF Discharge Orders: Discharge Order (Routine); Ordered 04/30/22 Ordered By: Alma Rosa Chin Diet: Diabetic diet Activity on Discharge: As tolerated Stand Alone Forms: Patient Portal Discharge page Care Plan Goals: seen by wound care and General surgery they recommend Xeroform and gauze dressing to both legs weeping areas, avoid Telfa recommend to keep leg elevated on pillows take doxycycline for 3 more days Health Concerns: continue all home medications as before Plan of Treatment: continue close outpatient follow-up with primary care physician and VNA follow-up with Wound Care Clinic call to make appointment Assessment: as above
== END 2022-04-30 16:06 | disposition home health service (06) | DRG 603 ==
LOC: HO.ED 23:45 → HO.EDOVER 04-28 05:40 → HO.S3 04-28 18:23
PROVIDERS: Admitting Provider Student in an Organized Health Care Education/Training Program; Emergency Provider Internal Medicine; PCP Pediatrics; Visit Provider Hospitalist
DX: L03.115 Cellulitis of right lower limb (principal); I87.331 Chronic venous hypertension (idiopathic) with ulcer and inflammation of right lower extremity; L97.819 Non-pressure chronic ulcer of other part of right lower leg with unspecified severity; L03.116 Cellulitis of left lower limb; E11.42 Type 2 diabetes mellitus with diabetic polyneuropathy; E78.2 Mixed hyperlipidemia; E66.9 Obesity, unspecified; Z68.31 Body mass index [BMI] 31.0-31.9, adult; J44.9 Chronic obstructive pulmonary disease, unspecified; Z20.822 Contact with and (suspected) exposure to COVID-19; Z91.013 Allergy to seafood; Z79.82 Long term (current) use of aspirin; Z79.84 Long term (current) use of oral hypoglycemic drugs; Z79.899 Other long term (current) drug therapy
CPT/HCPCS: 36415; 80048; 80053; 82565; 82947; 83605; 83735; 83880; 84484; 85025; 85379; 85610; 87040; 87635; 99285; J0696; J1650; J3370

== ENCOUNTER 2022-12-03 11:44 | Inpatient (IN) | payer MEDICARE, BC, SELFPAY ==
[2022-12-03] VITALS (7 sets, daily range): BP systolic 138–148; BP diastolic 52–82; PULSE 64–93; RESP 16–20; TEMP 36.3–36.9; O2SAT 94–98; BMI 31.7
--- NOTE | ~2022-12-03 | US_ITS ---
EXAMINATION: US VENOUS ULTRASOUND WITH DOPPLER LOWER EXTREMITY, BILATERAL CLINICAL INFORMATION: Edema. Swelling. COMPARISON: Venous duplex Doppler ultrasound exam left lower extremity 02/03/2022 TECHNIQUE: Ultrasound of the deep veins is performed from the hip to the calf with compression sonography and color and pulse Doppler assessment. Spectral analysis with color-flow imaging is performed. FINDINGS: Limited visualization of calf veins. RIGHT: There is normal venous compression and respiratory variation and augmented flow. The visualized common femoral vein, superficial femoral vein, profunda femoral vein, popliteal vein, and the trifurcation region shows no evidence of deep venous thrombosis. There is no significant popliteal fossa cyst. LEFT: There is normal venous compression and respiratory variation and augmented flow. The visualized common femoral vein, superficial femoral vein, profunda femoral vein, popliteal vein, and the trifurcation region shows no evidence of deep venous thrombosis. There is no significant popliteal fossa cyst. If the patient's symptoms persist, followup ultrasound in 5 days 7 days might be of value to exclude proximal propagation from a non-visualized calf vein. US/US venous duplex LE BI IMPRESSION: No DVT demonstrated in the bilateral lower extremity.
--- NOTE | ~2022-12-03 | XR_ITS ---
EXAMINATION: XR CHEST CLINICAL INFORMATION: No extremity edema. COMPARISON: Chest x-ray 02/03/2022 TECHNIQUE: Frontal portable view of the chest was obtained. 1:29 PM FINDINGS: Lungs are clear. No pulmonary vascular congestion. There is no pleural effusion. The heart size is normal. The cardiac and mediastinal contours are normal. There are calcifications of the thoracic aorta. There are multilevel degenerative changes of dorsal spine. XR/XR chest 1V IMPRESSION: Unremarkable examination.
--- NOTE | ~2022-12-03 | XR_ITS ---
EXAMINATION: XR FOOT, LEFT CLINICAL INFORMATION: Left foot pain. Rule out osteomyelitis. COMPARISON: None available. TECHNIQUE: AP, lateral, and oblique views of the left foot. FINDINGS: There is diffuse osteoporosis seen throughout the left foot. No visible fracture seen. The joint spaces are maintained normal. The ankle mortise and subtalar joints are normal. A small calcaneal heel and retrocalcaneal enthesophyte. Moderate dorsal foot soft tissue swelling XR/XR foot LT min 3V IMPRESSION: Diffuse osteoporosis of left foot with moderate dorsal mid and distal foot soft tissue. No soft tissue gas or swelling visualized. No visible acute fracture or findings suggestive of osteomyelitis. Small calcaneal heel and retrocalcaneal enthesophytes.
--- NOTE | 2022-12-03 12:00 | ED_ITS ---
HPI - General Adult General Chief complaint: General Medical Stated complaint: LLE LEG PAIN AND SWELLING Time Seen by Provider: 12/03/22 12:00 Source: patient, EMS, RN notes reviewed and old records reviewed Mode of arrival: EMS History of Present Illness HPI narrative: 77-year-old male with a past medical history of diabetes, HLD, peripheral neuropathy, COPD, obesity, presenting to the ED via EMS sent in by VNA for bilateral LE edema, and LLE erythema with suspected infection. Patient is poor historian, states lower extremities have been swollen for unknown period of time, and left lower extremity redness for unknown time. Denies pain at present, fever/chills, SOB/CP Onset (ago): unknown Related Data Home Medications Medication Instructions Recorded Confirmed albuterol sulfate 90 mcg/actuation 2 puff inhalation Q6H PRN 04/28/22 12/03/22 aerosol inhaler Respiratory Distress gabapentin 300 mg capsule 300 mg PO TID PRN Pain 12/03/22 12/03/22 Previous Rx's Medication Instructions Recorded aspirin 81 mg tablet,delayed 81 mg PO DAILY #30 tabs 04/12/20 release ipratropium 0.5 mg-albuterol 3 mg 3 ml inhalation Q6H PRN wheezing 03/15/21 (2.5 mg base)/3 mL nebulization 30 days #360 mL soln ADJUSTABLE HEIGHT ARM ASSEMBLY -- #2 ea 03/29/22 E0973 BATTERY -- E2365 #1 ea 03/29/22 CUSHION SKIN PROTECTION LESS THAN #1 ea 03/29/22 22 -- E2503 ELECTRIC WHEELCHAIR #1 ea 03/29/22 HEEL LOOPS -- E0951 #2 ea 03/29/22 cholecalciferol (vitamin D3) 50 50 mcg PO DAILY 90 days #90 caps 06/23/22 mcg (2,000 unit) capsule glipizide 10 mg tablet 10 mg PO BID 90 days #180 tabs 08/03/22 metformin 500 mg tablet 500 mg PO BID 90 days #180 tabs 08/03/22 pravastatin 40 mg tablet 40 mg PO BEDTIME #90 tabs 10/30/22 Allergies Allergy/AdvReac Type Severity Reaction Status Date / Time Fish Containing Products Allergy Severe ANAPHYLAXIS Verified 04/27/22 23:28 shellfish derived Allergy Severe ANAPHYLAXIS Verified 04/27/22 23:28 Review of Systems Review of Systems: Constitutional: No Fever, No Chills, No Fatigue, No Malaise ENT/Mouth: No Ear Pain, No Nasal Congestion, No sore throat, No Rhinorrhea, No Swallowing Difficulty Eyes: No Eye Pain, No Swelling, No Redness, No Vision Changes Cardiovascular: No Chest Pain, No SOB, No Dyspnea on Exertion, No Orthopnea, + Edema, No Palpitations Respiratory: No Cough, No Sputum, No Dyspnea Gastrointestinal: No Nausea, No Vomiting, No Diarrhea, No Constipation, + Abdominal pain, No Hematochezia, No Melena Genitourinary: No Dysuria, No Hematuria, No Flank Pain Musculoskeletal: No joint pain, No Myalgias, No Joint Swelling Skin: + Skin Lesions, No rash Neuro: No Weakness, No Numbness, No Paresthesias, No Headache Yes all other systems are reviewed and are negative Constitutional: Constitutional: Reports as per [facility] Past Medical History Attestation statement: The following information was validated with the patient. Source: old records reviewed Medical History Benign essential hypertension CAD (coronary artery disease) COPD (chronic obstructive pulmonary disease) COPD (chronic obstructive pulmonary disease) Coronary artery disease Depression DM2 (diabetes mellitus, type 2) Erectile disorder due to medical condition in male HLD (hyperlipidemia) HTN (hypertension) Neuropathy Obesity (BMI 30-39.9) Obesity (BMI 30.0-34.9) FADY (obstructive sleep apnea) Primary osteoarthritis of both knees Psoriasis Pulmonary hypertension Pure hypercholesterolemia Stasis ulcer of right lower extremity Type 2 diabetes mellitus with diabetic neuropathy, unspecified Vitamin D deficiency Surgical History No pertinent past surgical history Family History Family History Father Medical history unknown Mother Cancer Social History Social History Household Members: None Housing: Apartment Do you presently have visiting nurse or other home services: Yes Alcohol intake: current Alcohol intake frequency: holidays/special occasions only Alcohol type: beer and wine Patient Tobacco Use Status: Current everyday Tobacco user Tobacco use type: Cigarette Cigarette Packs Per Day: 0.5 Cigarettes Per Day: 10.0 Years Smoked: 50 Smoked in Last 30 Days: Yes e-Cigarette/Vaping Use: Never Used Second Hand Smoke Exposure: No Use of substances other than those prescribed or required for medical reasons: No Advance Directives: Yes Advance Directives on File: Yes Advance Directives Date on File: 02/03/22 service: No Current occupational status: retired Cognitive needs: No Hearing needs: No Vision needs: No Physical Exam ED Vital Signs: Vital Signs - 24 hr 12/03/22 11:53 12/03/22 14:46 Temperature 97.5 F 97.9 F Pulse Rate 74 64 Respiratory Rate 16 18 Blood Pressure 143/59 H 144/52 H Pulse Oximetry 98 97 Oxygen Delivery Method Room Air Room Air BMI result Body Mass Index 31.7 Const General: cooperative and no acute distress Orientation/consciousness: patient oriented x3 HENMT Head: Yes normal to inspection and Yes atraumatic Ears: hearing grossly normal bilaterally General nose exam: Normal external nose present Face and sinus: Yes normal facial exam Eyes General: appearance normal, both eyes and all related structures EOM: EOMs intact bilaterally Neck Neck: Yes normal visual inspection and Yes no meningeal signs Resp Effort & Inspection: normal respiratory effort and no respiratory distress Auscultation: diminished lung sounds bilateral in the lower lung toribio Cardio Rate: regular rate Heart sounds: S1 normal heart sound present and S2 normal heart sound present Peripheral pulses: Peripheral pulses 2+ throughout GI Inspection: Yes normal to inspection Palpation (GI): Soft to palpation, nontender, no guarding and not rigid Skin Rashes: no rashes Neuro General: patient oriented x3, tone normal and no meningeal signs Gait exam (Neuro): Normal gait present Extrem Other: Please refer to images above. Bilateral LE pitting edema with chronic venous stasis changes. LLE with noted deep erythema and malodor. Neurovascular intact Course Course Course Narrative: -[id number]--no leukocytosis. Labs otherwise reassuring. Lactic acid negative -venous duplex negative for DVT bilaterally -chest x-ray unremarkable XR foot LT min 3V IMPRESSION: Diffuse osteoporosis of left foot with moderate dorsal mid and distal foot soft tissue. No soft tissue gas or swelling visualized. No visible acute fracture or findings suggestive of osteomyelitis. ? Small calcaneal heel and retrocalcaneal enthesophytes. > plan to admit for further management will consult hospitalist Medications Administered Discontinued Medications Generic Name Dose Route Start Last Admin Trade Name Freq PRN Reason Stop Dose Admin Piperacillin Sod/Tazobactam 50 mls @ 100 mls/hr 12/03/22 12:17 12/03/22 14:04 Sod 3.375 gm/ Sodium Chloride IV 12/03/22 12:46 Infused ONCE ONE Infusion Medical Decision Making Medical Decision Making [facility] Narrative: 77-year-old male with a past medical history of diabetes, HLD, peripheral neuropathy, COPD, obesity, presenting to the ED via EMS sent in by VNA for b ilateral LE edema, and LLE erythema with suspected infection. On exam vital signs stable, NAD, nontoxic appearing, physical exam as noted above, please refer to images. Bilateral LE pitting edema noted, LL ED with deep erythema, malodor, and crusting. Concern for cellulitis vs osteomyelitis vs CHF vs possible DVT. Lower suspicion for necrotizing fasciitis, pleural effusion or septic joint Low suspicion for severe sepsis at this time Plan: Labs, Labs/Blood Cx, XR, US venous duplex, admission Please refer to course for remaining clinical decision making, interpretation of labs/imaging results, and discussions with consultants and/or family members. Differential Diagnosis Differential Diagnoses: The differential diagnosis associated with the presentation includes As above Admission/Observation Consideration of admission/observation: Escalation of care including admission/observation considered Consult Healthcare Provider Management of the patient was discussed with: Hospitalist Lab Data [facility] Lab Attestation statement: I reviewed the patient's lab results. 12/03/22 12:56 12/03/22 14:54 Labs: Lab Results 12/03/22 12/03/22 12/03/22 Range/Units 12:56 12:56 12:56 WBC 8.1 (4.8-10.8) X10*3/uL RBC 4.94 (4.60-5.80) X10*6/uL Hgb 15.2 (14.0-18.0) g/dl Hct 48.4 (42.0-52.0) % MCV 98.0 (80.0-98.0) fL MCH 30.8 (27.0-33.0) pg MCHC 31.4 (31.0-36.0) g/dl RDW 13.3 (11.0-16.0) % Plt Count 230 (160-400) X10*3/uL MPV 9.9 (9.4-12.4) fL Immature Gran % (Auto) 0.4 (0.0-0.4) % Neut % (Auto) 61.8 (45-73) % Lymph % (Auto) 27.9 (20-40) % [place] % (Auto) 8.5 (2-11) % Eos % (Auto) 1.2 (0-4) % Baso % (Auto) 0.2 (0-2) % Lymph # (Auto) 2.3 (1.2-4.9) X10*3/uL [place] # (Auto) 0.7 (0.1-1.2) X10*3/uL Eos # (Auto) 0.1 (0.0-0.4) X10*3/uL Baso # (Auto) 0.0 (0.0-0.2) X10*3/uL Abs Immat Gran (auto) 0.03 (0.00-0.03) X10*3/uL Absolute Neuts (auto) 5.0 (2.0-8.3) x10*3/uL Absolute Nucleated RBC 0.000 (0.0-0.012) X10*3/uL Nucleated RBC % (auto) 0.0 (0.0-0.2) /100WBC PT 11.9 (10.0-13.1) SEC INR 1.0 (0.9-1.1) Sodium (135-145) mmol/L Potassium (3.3-5.1) mmol/L Chloride (96-108) mmol/L Carbon Dioxide (22-29) mmol/L Anion Gap (12-20) BUN (9-16) mg/dL Creatinine (0.5-1.4) mg/dL Estim Creat Clear Calc Estimated GFR Random Glucose (60-115) mg/dL Lactic Acid 1.8 (0.5-2.0) mmol/L Calcium (8.4-10.2) mg/dL Magnesium (1.6-2.6) mg/dL Total Bilirubin (0.0-1.0) mg/dL Direct Bilirubin (0.0-0.5) mg/dL AST (5-37) U/L ALT (0-40) U/L Alkaline Phosphatase (39-117) U/L B-Natriuretic Peptide (<100) pg/mL Total Protein (6.5-8.0) g/dL Albumin (3.5-5.0) g/dL 12/03/22 12/03/22 Range/Units 12:56 14:54 WBC (4.8-10.8) X10*3/uL RBC (4.60-5.80) X10*6/uL Hgb (14.0-18.0) g/dl Hct (42.0-52.0) % MCV (80.0-98.0) fL MCH (27.0-33.0) pg MCHC (31.0-36.0) g/dl RDW (11.0-16.0) % Plt Count (160-400) X10*3/uL MPV (9.4-12.4) fL Immature Gran % (Auto) (0.0-0.4) % Neut % (Auto) (45-73) % Lymph % (Auto) (20-40) % [place] % (Auto) (2-11) % Eos % (Auto) (0-4) % Baso % (Auto) (0-2) % Lymph # (Auto) (1.2-4.9) X10*3/uL [place] # (Auto) (0.1-1.2) X10*3/uL Eos # (Auto) (0.0-0.4) X10*3/uL Baso # (Auto) (0.0-0.2) X10*3/uL Abs Immat Gran (auto) (0.00-0.03) X10*3/uL Absolute Neuts (auto) (2.0-8.3) x10*3/uL Absolute Nucleated RBC (0.0-0.012) X10*3/uL Nucleated RBC % (auto) (0.0-0.2) /100WBC PT (10.0-13.1) SEC INR (0.9-1.1) Sodium 141 (135-145) mmol/L Potassium 4.2 (3.3-5.1) mmol/L Chloride 105 (96-108) mmol/L Carbon Dioxide 30 H (22-29) mmol/L Anion Gap 10 L (12-20) BUN 11 (9-16) mg/dL Creatinine 0.73 (0.5-1.4) mg/dL Estim Creat Clear Calc 111.0 Estimated GFR > 60 Random Glucose 80 (60-115) mg/dL Lactic Acid (0.5-2.0) mmol/L Calcium 9.4 D (8.4-10.2) mg/dL Magnesium 1.9 (1.6-2.6) mg/dL Total Bilirubin 0.6 (0.0-1.0) mg/dL Direct Bilirubin 0.2 (0.0-0.5) mg/dL AST 13 (5-37) U/L ALT 9 (0-40) U/L Alkaline Phosphatase 86 (39-117) U/L B-Natriuretic Peptide 61 (<100) pg/mL Total Protein 6.4 L (6.5-8.0) g/dL Albumin 3.4 L (3.5-5.0) g/dL Radiology Impression Discussion of test interpretation with radiology: I have reviewed the radiologist's reading. Independent Historian Clinical information obtained from an independent historian. History obtained from or confirmed by: EMS External Record Review External record reviewed: Inpatient record, Office record, Outpatient record, Prior outpatient labs, Prior outpatient radiology, Primary care record and Outside ED record Tests considered The following testing was considered but not selected: As above Prescription Management I considered prescription management with: Antibiotic Chronic Conditions Patient?s care impacted by: Diabetes Discharge Plan Discharge Clinical Impression: Cellulitis Patient Disposition: Admitted As Inpatient
[2022-12-03 13:04] LABS: MANUAL DIFF FLAG NO
[2022-12-03 13:05] LABS: Basophils Percent Auto 0.2 % (0-2); Eosinophils Absolute Auto 0.1 X10*3/uL (0.0-0.4); Eosinophils Percent Auto 1.2 % (0-4); Hematocrit 48.4 % (42.0-52.0); Hemoglobin 15.2 g/dl (14.0-18.0); Imm Gran Abs Auto 0.03 X10*3/uL (0.00-0.03); Imm Gran Pct Auto 0.4 % (0.0-0.4); Lymphocytes Absolute Auto 2.3 X10*3/uL (1.2-4.9); Lymphocytes Percent Auto 27.9 % (20-40); Mean Corpuscular HGB Conc 31.4 g/dl (31.0-36.0); Mean Corpuscular Hemoglobin 30.8 pg (27.0-33.0); Mean Platelet Volume 9.9 fL (9.4-12.4); Monocytes Absolute Auto 0.7 X10*3/uL (0.1-1.2); Monocytes Percent Auto 8.5 % (2-11); Neutrophils Percent Auto 61.8 % (45-73); Platelet Count 230 X10*3/uL (160-400); Red Blood Count 4.94 X10*6/uL (4.60-5.80); Red Cell Distribution Width 13.3 % (11.0-16.0); White Blood Count 8.1 X10*3/uL (4.8-10.8)
[2022-12-03] MEDS: Piperacillin Sodium/Tazobactam 3.375 GM in 0.9 % Sodium Chloride 50 ML IV (13:06)
[2022-12-03 13:13] LABS: Prothrombin Time 11.9 SEC (10.0-13.1)
--- NOTE | 2022-12-03 13:14 | PC.NURSE ---
pt aox4, doesnt have any complaints but significant redness and swelling on left foot and edema on right. line inserted and labs drawn. zocyn infusing per mar. will ctm
[2022-12-03 13:15] LABS: Lactic Acid 1.8 mmol/L (0.5-2.0)
--- NOTE | 2022-12-03 13:23 | PHA.MEDREC ---
Pharmacy Consult ? Medication Reconciliation Pharmacy has completed the medication reconciliation. spoke with patient and he confirmed his medications. The albuterol inhaler and the ipratropium-albuterol solution does not have claim history to support (could be more than a year old) but patient says he still has it.
[2022-12-03 13:25] LABS: B Type Natriuretic Peptide 61 pg/mL (<100)
[2022-12-03 15:33] LABS: Alanine Aminotransferase 9 U/L (0-40); Albumin Level 3.4 g/dL (3.5-5.0); Alkaline Phosphatase 86 U/L (39-117); Anion Gap 10 (12-20); Aspartate Amino Transferase 13 U/L (5-37); Bilirubin Direct 0.2 mg/dL (0.0-0.5); Bilirubin Total 0.6 mg/dL (0.0-1.0); Blood Urea Nitrogen 11 mg/dL (9-16); Calcium 9.4 mg/dL (8.4-10.2); Carbon Dioxide 30 mmol/L (22-29); Chloride 105 mmol/L (96-108); Estimated Glomerular Filt Rate > 60; Glucose Random 80 mg/dL (60-115); Magnesium 1.9 mg/dL (1.6-2.6); Potassium 4.2 mmol/L (3.3-5.1); Sodium 141 mmol/L (135-145); Total Protein 6.4 g/dL (6.5-8.0)
--- NOTE | 2022-12-03 16:22 | PM.EVENT ---
Event Note Date of Service: 12/03/22 Event Note: the patient was seen and evaluated with SEA Martinez. I agree with his note, assessment and plan with the following. A 77 years old male with PMH of DM, COPD, HLD and chronic LE edema presents with worsening erythema and pain in LLE and failed OP antibiotics. He denies fever or chills but has significant reddish, swollen Lt foot with skin sloughing and Oozing serous material. -ve for DVT. Not septic. IV Abx Doxy and CTx, leg elevation, Ammonium lactate lotion, LEA-wrap, IV Lasix Pending cultures Wound care nurse Rest of evaluations by SEA note. Time Spent With Patient Time: Total time managing care of this patient today ____ minutes.
--- NOTE | 2022-12-03 16:42 | P.HPHOSP_ITS ---
History of Present Illness Date of Service: 12/03/22 Attending physician on admission: Cira Bartlett Chief Complaint: Left leg cellulitis Pt is a 77-year-old male with a PMH significant for?exu-tpnqzvj-jcplbtbzp diabetes type 2 HLD, peripheral neuropathy, COPD, and hx of left lower leg ce llulitis who presents to the ED for evaluation of worsening left lower leg swelling and redness. Patient lives at home with limited mobility: States he has not been able to ambulate on his own for some 4-5 months. Gets around at home in an electric wheelchair. Patient is visited twice a week by [facility] services who change and check his lower extremity dressings. Today [facility] noticed increased redness and swelling concerning for cellulitis, and sent pt to ED for additional workup. Pt himself is rather vague as to symptoms and timeframe. Says he has been dealing with lower leg edema for quite some time. Says redness seems to be new within the past few days. Has not noticed increased pain in his foot. He did notice the other day that his pain legs were wet when he changes his clothes and thought his leg was draining from popped blisters. Patient also mentioned at one time he might have been prescribed antibiotics, though none are listed on his med reconciliation and he may have been referring to gabapentin. Patient denies any systemic symptoms: No fever, chills, nausea, vomiting. Denies abdominal pain, diarrhea. Denies leg pain. No chest pain/pressure, palpitations. Denies shortness of breath. In the ED patient was afebrile but slightly hypertensive at 144/52, satting at 9 7% on RA. Labs were largely unremarkable. No leukocytosis. Hemodynamically stable. Electrolytes WNL. Renal function baseline. Hepatic function baseline. CXR showed no cardiopulmonary process. X-ray of left foot found no visible acute fracture or findings suggestive of osteomyelitis, but showed diffuse osteoporosis. Doppler ultrasound negative for DVT. Pt was treated with Zosyn. Pt will be admitted to the hospital for treatment further evaluation of left leg cellulitis. Review of Systems Review of Systems: Left lower leg swelling, erythema, oozing serous fluid Chronic left lower leg pain Chronic shortness of breath, at baseline No fever, chills Denies nausea, vomiting, abdominal pain, diarrhea Denies chest pain/pressure, palpitations Yes all other systems are reviewed and are negative [facility] Medical History Benign essential hypertension CAD (coronary artery disease) COPD (chronic obstructive pulmonary disease) COPD (chronic obstructive pulmonary disease) Coronary artery disease Depression DM2 (diabetes mellitus, type 2) Erectile disorder due to medical condition in male HLD (hyperlipidemia) HTN (hypertension) Neuropathy Obesity (BMI 30-39.9) Obesity (BMI 30.0-34.9) FADY (obstructive sleep apnea) Primary osteoarthritis of both knees Psoriasis Pulmonary hypertension Pure hypercholesterolemia Stasis ulcer of right lower extremity Type 2 diabetes mellitus with diabetic neuropathy, unspecified Vitamin D deficiency Family History Father Medical history unknown Mother Cancer Surgical History No pertinent past surgical history Social History Household Members: None Housing: Apartment Do you presently have visiting nurse or other home services: Yes Alcohol intake: current Alcohol intake frequency: holidays/special occasions only Alcohol type: beer and wine Patient Tobacco Use Status: Never used Tobacco Tobacco use type: Cigarette Cigarette Packs Per Day: 0.5 Cigarettes Per Day: 10.0 Years Smoked: 50 e-Cigarette/Vaping Use: Never Used Second Hand Smoke Exposure: No Advance Directives Date on File: 02/03/22 service: No Current occupational status: retired Cognitive needs: No Hearing needs: No Vision needs: No Meds Allergies Allergy/AdvReac Type Severity Reaction Status Date / Time Fish Containing Products Allergy Severe ANAPHYLAXIS Verified 04/27/22 23:28 shellfish derived Allergy Severe ANAPHYLAXIS Verified 04/27/22 23:28 Active Medications: Current Medications Acetaminophen (Acetaminophen 325 Mg Tablet) 650 mg PO Q6H PRN PRN Reason: Pain, Mild (Pain Scale 1-3) Albuterol Sulfate (Albuterol Sulfate 90 Mcg 8 Gm Inhaler) 2 puff INHALE Q6H PRN PRN Reason: Respiratory Distress Albuterol/Ipratropium (Albuterol/Iprat 2.5/0.5mg 3 Ml Ampul.Neb) 3 ml INHALE Q6H PRN PRN Reason: wheezing Aspirin (Aspirin Enteric Coated 81 Mg Tablet.) 81 mg PO DAILY [facility] Enoxaparin Sodium (Enoxaparin Sodium 40 Mg/0.4 Ml Syringe) 40 mg SUBCUT Q24H [facility] Doxycycline Hyclate 100 mg/ (Sodium Chloride) 250 mls @ 166.67 mls/hr IV Q12H [facility] Ceftriaxone Sodium 1 gm/ (Sodium Chloride) 50 mls @ 100 mls/hr IV Q24H [facility] Insulin Human Lispro (Insulin Lispro 100 Unit/Ml 3 Ml Vial) 0 unit SUBCUT QIDACHS [facility]; Protocol Lactic Acid (Ammonium Lactate 12 % Lotion 226 Gm Bottle) 1 appl TOPICAL BID [facility]; Protocol Ondansetron HCl (Ondansetron Hcl 4 Mg/2 Ml Vial) 4 mg IVPUSH Q8H PRN PRN Reason: Nausea and Vomiting Pravastatin Sodium (Pravastatin Sodium 40 Mg Tablet) 40 mg PO BEDTIME [facility] Sodium Chloride (0.9 % Sodium Chloride Flush 3 Ml Syringe) 3 ml IVFLUSH QSHIFT [facility] Vitamin D (Cholecalciferol (Vitamin D3) 25 Mcg Tablet) 50 mcg PO DAILY [facility] Home Medications Medication Instructions Recorded Confirmed Last Taken Type albuterol sulfate 90 mcg/actuation 2 puff inhalation Q6H PRN 04/28/22 12/03/22 Unknown History aerosol inhaler Respiratory Distress gabapentin 300 mg capsule 300 mg PO TID PRN Pain 12/03/22 12/03/22 12/03/22 History Physical Exam Vital Signs and Narrative: Vital Signs: Last Vital Signs Temp 97.9 F 12/03/22 14:46 Pulse 64 12/03/22 14:46 Resp 18 12/03/22 14:46 BP 144/52 H 12/03/22 14:46 Pulse Ox 97 12/03/22 14:46 O2 Del Method Room Air 12/03/22 14:46 BMI result Body Mass Index 31.7 Constitutional: Alert, in no acute distress. Mental Status: Oriented to person, place and time. Eyes: Pupils are equal, round, and reactive to light. Ear, Nose, and Throat: Oropharynx clear, mucous membranes moist. Ears and nose without deformities. Trachea midline. Respiratory: Mild diffuse expiratory wheezing. Cardiovascular: S1, S2 regular. No murmurs, rubs, or gallops. Gastrointestinal: Abdomen soft, non-tender, non-distended. Normal bowel sounds. Neurologic: Cranial nerves II-XII are grossly intact bilaterally. No focal neurological deficits. Moves all extremities spontaneously. Musculoskeletal: No cyanosis or clubbing. Extremities: Bilateral 2+ pitting edema of lower extremities, left worse than right. Left lower extremity with marked erythema, sloughing of skin, oozing of serous fluid. Top skin layer very tight and translucent. See pictures below. Psychiatric: Normal mood and affect. Results Labs 12/03/22 12:56 12/03/22 14:54 Labs: Laboratory Results - last 24 hr 12/03/22 12/03/22 12/03/22 12:56 12:56 12:56 MCV 98.0 MCH 30.8 MCHC 31.4 RDW 13.3 Plt Count 230 MPV 9.9 Immature Gran % (Auto) 0.4 Neut % (Auto) 61.8 Lymph % (Auto) 27.9 [place] % (Auto) 8.5 Eos % (Auto) 1.2 Baso % (Auto) 0.2 Lymph # (Auto) 2.3 [place] # (Auto) 0.7 Eos # (Auto) 0.1 Baso # (Auto) 0.0 Abs Immat Gran (auto) 0.03 Absolute Neuts (auto) 5.0 Absolute Nucleated RBC 0.000 Nucleated RBC % (auto) 0.0 PT 11.9 INR 1.0 Anion Gap Estim Creat Clear Calc Estimated GFR Random Glucose Lactic Acid 1.8 Calcium Magnesium Total Bilirubin Direct Bilirubin AST ALT Alkaline Phosphatase B-Natriuretic Peptide Total Protein Albumin 12/03/22 12/03/22 12:56 14:54 MCV MCH MCHC RDW Plt Count MPV Immature Gran % (Auto) Neut % (Auto) Lymph % (Auto) [place] % (Auto) Eos % (Auto) Baso % (Auto) Lymph # (Auto) [place] # (Auto) Eos # (Auto) Baso # (Auto) Abs Immat Gran (auto) Absolute Neuts (auto) Absolute Nucleated RBC Nucleated RBC % (auto) PT INR Anion Gap 10 L Estim Creat Clear Calc 111.0 Estimated GFR > 60 Random Glucose 80 Lactic Acid Calcium 9.4 D Magnesium 1.9 Total Bilirubin 0.6 Direct Bilirubin 0.2 AST 13 ALT 9 Alkaline Phosphatase 86 B-Natriuretic Peptide 61 Total Protein 6.4 L Albumin 3.4 L Imaging Radiologist's Impressions: Impressions Chest X-Ray 12/03/22 13:43 IMPRESSION: Unremarkable examination. Foot X-Ray 12/03/22 13:43 IMPRESSION: Diffuse osteoporosis of left foot with moderate dorsal mid and distal foot soft tissue. No soft tissue gas or swelling visualized. No visible acute fracture or findings suggestive of osteomyelitis. Small calcaneal heel and retrocalcaneal enthesophytes. Venous Duplex 12/03/22 14:21 IMPRESSION: No DVT demonstrated in the bilateral lower extremity. Assessment and Plan (1) Cellulitis of left leg: Status: Acute Plan Pt is a 77-year-old male with a PMH significant for?nzd-pnilrpa-youexrxkr diabetes type 2 HLD, peripheral neuropathy, COPD, and hx of left lower leg cellulitis who presents to the ED for evaluation of worsening left lower leg swelling and redness. Pt will be admitted to the hospital for treatment further evaluation of left leg cellulitis. Left foot and leg cellulitis No concern for sepsis Patient received Zosyn in the emergency room Patient will be treated with doxycycline and ceftriaxone, started 12/03/2022 Ammonium lactate lotion, LEA wrap Wound care consult Bilateral lower leg edema Pt with no known history of heart failure BNP WNL at 61 Furosemide 20mg IV daily [id number]-prolpqqsp type 2 diabetes Hold home meds Diabetic diet Sliding-scale insulin HLD Continue statin COPD Patient with mild wheezing, baseline SOB Does not appear to be in acute exacerbation Continue home inhalers, DuoNebs p.r.n. Peripheral neuropathy Continue gabapentin Full Code Attending:?Dr Bartlett. DVT Prophylaxis: Lovenox Pt will require a hospitalization of at least two nights for treatment of?left leg and foot cellulitis with IV antibiotics. Time Spent With Patient Time: Total time managing care of this patient today ____ minutes. Quality Stroke Does the patient have a stroke diagnosis?: No VTE Prior VTE?: No VTE Risk Level:: Medical - moderate - high VTE Device Contraindication: Treatment Not Indicated VTE Drug Contraindication: N/A - Med Ordered
[2022-12-03] MEDS: Doxycycline Hyclate 100 MG in 0.9 % Sodium Chloride 250 ML 166.67 MG IV (17:00)
[2022-12-03] MEDS: Furosemide 20 MG/2 ML VIAL IVPUSH (17:03)
--- NOTE | 2022-12-03 17:18 | PC.NURSE ---
clarified with Dr. Bartlett ,cabrera wrap only to left leg
[2022-12-03 18:07] LABS: Glucose, Whole Blood 83 mg/dL (60-115)
[2022-12-03 19:54] LABS: Glucose, Whole Blood 148 mg/dL (60-115)
[2022-12-03] MEDS: Gabapentin 300 MG CAPSULE PO (19:56)
[2022-12-03] MEDS: Ammonium Lactate 12 % Lotion 226 GM BOTTLE 1 APPL TOPICAL (19:58)
[2022-12-03] MEDS: cefTRIAXone sodium 1 GM in 0.9 % Sodium Chloride 50 ML IV (20:11)
[2022-12-03] MEDS: Pravastatin Sodium 40 MG TABLET PO (20:58)
[2022-12-03] MEDS: Enoxaparin Sodium 40 MG/0.4 ML SYRINGE SUBCUT (20:59)
[2022-12-04] MEDS: 0.9 % Sodium Chloride Flush 3 ML SYRINGE IVFLUSH ×4 (00:16→23:41)
[2022-12-04] MEDS: Acetaminophen 325 MG TABLET 650 MG PO ×2 (01:00→11:18)
[2022-12-04 03:30] VITALS: BP 113/53; PULSE 73; RESP 16; TEMP 36.4; O2SAT 93
[2022-12-04] MEDS: Doxycycline Hyclate 100 MG in 0.9 % Sodium Chloride 250 ML 166.67 MG IV ×2 (04:46→16:29)
[2022-12-04 06:03] LABS: Hematocrit 43.7 % (42.0-52.0); Mean Corpuscular Hemoglobin 30.6 pg (27.0-33.0); Mean Corpuscular Volume 95.6 fL (80.0-98.0); Mean Platelet Volume 9.8 fL (9.4-12.4); Platelet Count 206 X10*3/uL (160-400); Red Blood Count 4.57 X10*6/uL (4.60-5.80); Red Cell Distribution Width 13.2 % (11.0-16.0); White Blood Count 7.5 X10*3/uL (4.8-10.8)
[2022-12-04 06:11] LABS: Anion Gap 12 (12-20); Blood Urea Nitrogen 12 mg/dL (9-16); Calcium 8.9 mg/dL (8.4-10.2); Carbon Dioxide 27 mmol/L (22-29); Chloride 103 mmol/L (96-108); Creatinine Clr Calc Pharmacy 112.5; Estimated Glomerular Filt Rate > 60; Glucose Random 129 mg/dL (60-115); Potassium 3.8 mmol/L (3.3-5.1); Sodium 138 mmol/L (135-145)
[2022-12-04 07:24] LABS: Glucose, Whole Blood 152 mg/dL (60-115)
[2022-12-04 07:33] VITALS: BP 136/62; PULSE 67; RESP 16; TEMP 36.6; O2SAT 94
[2022-12-04] MEDS: Aspirin Enteric Coated 81 MG TABLET.DR PO (08:07)
[2022-12-04] MEDS: Cholecalciferol (Vitamin D3) 25 MCG TABLET 50 MCG PO (08:07)
[2022-12-04] MEDS: Insulin Lispro 100 UNIT/ML 3 ML VIAL SUBCUT ×2 (08:08→11:43)
[2022-12-04] MEDS: Ammonium Lactate 12 % Lotion 226 GM BOTTLE 1 APPL TOPICAL ×2 (08:10→22:08)
[2022-12-04 08:38] VITALS: BP 136/62; PULSE 67; O2SAT 94
[2022-12-04] MEDS: Gabapentin 300 MG CAPSULE PO ×2 (11:18→19:47)
[2022-12-04 11:25] LABS: Glucose, Whole Blood 180 mg/dL (60-115)
--- NOTE | 2022-12-04 11:49 | P.PNIM_ITS ---
Subjective Subjective Date of Service: 12/04/22 Interval History: Left leg cellulitis Review of Systems cellulitis leg seems similar no discharge or fever Physical Exam Vital Signs: Vital Signs: Last Vital Signs Temp 98 F 12/04/22 07:33 Pulse 67 12/04/22 08:38 Resp 16 12/04/22 07:33 BP 136/62 12/04/22 08:38 Pulse Ox 94 12/04/22 08:38 O2 Del Method Room Air 12/04/22 07:33 BMI result Body Mass Index 31.7 Appearance: Alert.? Oriented X3.? not in distress.? cvs: [id number], [id number] , no murmur res: clear to auscultation ,no rhonchii or wheezing abd: no rebound or guarding ,nt, bs present. ext pulses present , no cyanosis, left lower leg erythema /mild swelling neuro: axo3 , nonfocal. Objective Data Active Medications Acetaminophen (Acetaminophen 325 Mg Tablet) 650 mg PO Q6H PRN PRN Reason: Pain, Mild (Pain Scale 1-3) Last Admin: 12/04/22 11:18 Dose: 650 mg Documented By: MARLON Albuterol Sulfate (Albuterol Sulfate 90 Mcg 8 Gm Inhaler) 2 puff INHALE Q6H PRN PRN Reason: Respiratory Distress Albuterol/Ipratropium (Albuterol/Iprat 2.5/0.5mg 3 Ml Ampul.Neb) 3 ml INHALE Q6H PRN PRN Reason: wheezing Aspirin (Aspirin Enteric Coated 81 Mg Tablet.) 81 mg PO DAILY [facility] Last Admin: 12/04/22 08:07 Dose: 81 mg Documented By: MARLON Enoxaparin Sodium (Enoxaparin Sodium 40 Mg/0.4 Ml Syringe) 40 mg SUBCUT Q24H [facility] Last Admin: 12/03/22 20:59 Dose: 40 mg Documented By: HOLLAND Gabapentin (Gabapentin 300 Mg Capsule) 300 mg PO TID PRN PRN Reason: Pain, Mild (Pain Scale 1-3) Last Admin: 12/04/22 11:18 Dose: 300 mg Documented By: MARLON Guaifenesin (Guaifenesin 100 Mg/5 Ml Liquid) 10 ml PO Q4H PRN PRN Reason: Consult order Doxycycline Hyclate 100 mg/ (Sodium Chloride) 250 mls @ 166.67 mls/hr IV Q12H [facility] Last Infusion: 12/04/22 06:19 Dose: 0 mls/hr Documented By: LATOYA Ceftriaxone Sodium 1 gm/ (Sodium Chloride) 50 mls @ 100 mls/hr IV Q24H [facility] Last Infusion: 12/03/22 21:01 Dose: 0 mls/hr Documented By: HOLLAND Insulin Human Lispro (Insulin Lispro 100 Unit/Ml 3 Ml Vial) 0 unit SUBCUT QIDACHS [facility]; Protocol Last Admin: 12/04/22 11:43 Dose: 2 unit Documented By: MARLON Lactic Acid (Ammonium Lactate 12 % Lotion 226 Gm Bottle) 1 appl TOPICAL BID [facility]; Protocol Last Admin: 12/04/22 08:10 Dose: 1 appl Documented By: MARLON Ondansetron HCl (Ondansetron Hcl 4 Mg/2 Ml Vial) 4 mg IVPUSH Q8H PRN PRN Reason: Nausea and Vomiting Pravastatin Sodium (Pravastatin Sodium 40 Mg Tablet) 40 mg PO BEDTIME [facility] Last Admin: 12/03/22 20:58 Dose: 40 mg Documented By: HOLLAND Sodium Chloride (0.9 % Sodium Chloride Flush 3 Ml Syringe) 3 ml IVFLUSH QSHIFT [facility] Last Admin: 12/04/22 08:11 Dose: 3 ml Documented By: MARLON Vitamin D (Cholecalciferol (Vitamin D3) 25 Mcg Tablet) 50 mcg PO DAILY [facility] Last Admin: 12/04/22 08:07 Dose: 50 mcg Documented By: MARLON Labs 12/04/22 05:29 12/04/22 05:29 Labs: Laboratory Results - last 24 hr 12/03/22 12/03/22 12/03/22 12:56 12:56 12:56 MCV 98.0 MCH 30.8 MCHC 31.4 RDW 13.3 Plt Count 230 MPV 9.9 Immature Gran % (Auto) 0.4 Neut % (Auto) 61.8 Lymph % (Auto) 27.9 [place] % (Auto) 8.5 Eos % (Auto) 1.2 Baso % (Auto) 0.2 Lymph # (Auto) 2.3 [place] # (Auto) 0.7 Eos # (Auto) 0.1 Baso # (Auto) 0.0 Abs Immat Gran (auto) 0.03 Absolute Neuts (auto) 5.0 Absolute Nucleated RBC 0.000 Nucleated RBC % (auto) 0.0 PT 11.9 INR 1.0 Anion Gap Estim Creat Clear Calc Estimated GFR POC Glucose Random Glucose Lactic Acid 1.8 Calcium Magnesium Total Bilirubin Direct Bilirubin AST ALT Alkaline Phosphatase B-Natriuretic Peptide Total Protein Albumin 12/03/22 12/03/22 12/03/22 12:56 14:54 17:51 MCV MCH MCHC RDW Plt Count MPV Immature Gran % (Auto) Neut % (Auto) Lymph % (Auto) [place] % (Auto) Eos % (Auto) Baso % (Auto) Lymph # (Auto) [place] # (Auto) Eos # (Auto) Baso # (Auto) Abs Immat Gran (auto) Absolute Neuts (auto) Absolute Nucleated RBC Nucleated RBC % (auto) PT INR Anion Gap 10 L Estim Creat Clear Calc 111.0 Estimated GFR > 60 POC Glucose 83 Random Glucose 80 Lactic Acid Calcium 9.4 D Magnesium 1.9 Total Bilirubin 0.6 Direct Bilirubin 0.2 AST 13 ALT 9 Alkaline Phosphatase 86 B-Natriuretic Peptide 61 Total Protein 6.4 L Albumin 3.4 L 12/03/22 12/04/22 12/04/22 19:49 05:29 05:29 MCV 95.6 MCH 30.6 MCHC 32.0 RDW 13.2 Plt Count 206 MPV 9.8 Immature Gran % (Auto) Neut % (Auto) Lymph % (Auto) [place] % (Auto) Eos % (Auto) Baso % (Auto) Lymph # (Auto) [place] # (Auto) Eos # (Auto) Baso # (Auto) Abs Immat Gran (auto) Absolute Neuts (auto) Absolute Nucleated RBC 0.000 Nucleated RBC % (auto) 0.0 PT INR Anion Gap 12 Estim Creat Clear Calc 112.5 Estimated GFR > 60 POC Glucose 148 H Random Glucose 129 H Lactic Acid Calcium 8.9 Magnesium Total Bilirubin Direct Bilirubin AST ALT Alkaline Phosphatase B-Natriuretic Peptide Total Protein Albumin 12/04/22 12/04/22 07:14 11:16 MCV MCH MCHC RDW Plt Count MPV Immature Gran % (Auto) Neut % (Auto) Lymph % (Auto) [place] % (Auto) Eos % (Auto) Baso % (Auto) Lymph # (Auto) [place] # (Auto) Eos # (Auto) Baso # (Auto) Abs Immat Gran (auto) Absolute Neuts (auto) Absolute Nucleated RBC Nucleated RBC % (auto) PT INR Anion Gap Estim Creat Clear Calc Estimated GFR POC Glucose 152 H 180 H Random Glucose Lactic Acid Calcium Magnesium Total Bilirubin Direct Bilirubin AST ALT Alkaline Phosphatase B-Natriuretic Peptide Total Protein Albumin Assessment and Plan (1) Cellulitis: Status: Acute Assessment and Plan: 77-year-old male with a PMH significant for?kdp-mxwsajn-upxjazboe diabetes type 2 HLD, peripheral neuropathy, COPD, and hx of left lower leg cellulitis who presents to the ED for evaluation of worsening left lower leg swelling and redness. Pt will be admitted to the hospital for treatment further evaluation of left leg cellulitis. Left foot and leg cellulitis No concern for sepsis Patient received Zosyn in the emergency room on doxycycline and ceftriaxone, started 12/03/2022 Ammonium lactate lotion, LEA wrap Wound care consult Bilateral lower leg edema Pt with no known history of heart failure BNP WNL at 61 hold lasix patient refused. Brk-vocmzxn-mrqemlqjs type 2 diabetes Hold home meds Diabetic diet Sliding-scale insulin HLD Continue statin COPD Patient with mild wheezing, baseline SOB Does not appear to be in acute exacerbation Continue home inhalers, DuoNebs p.r.n. Peripheral neuropathy Continue gabapentin Full Code Attending:?Dr Bartlett. DVT Prophylaxis: Lovenox inpatient need -?left leg and foot cellulitis-need IV antibiotics,blood cultures pending. Time Spent With Patient Time: Total time managing care of this patient today ____ minutes. Quality Stroke Does the patient have a stroke diagnosis?: No VTE Prior VTE?: No VTE Risk Level:: Medical - moderate - high VTE Device Contraindication: Treatment Not Indicated VTE Drug Contraindication: N/A - Med Ordered
--- NOTE | 2022-12-04 14:00 | P.CDIM_ITS ---
PROVIDER RESPONSE TEXT: To clarify, the appropriate diagnosis supported by the clinical indicators: Yes, Left foot and leg cellulitis is related to / associated with / due to Non-Insulin dependent type 2 Diabetes QUERY TEXT: PHYSICIAN'S DOCUMENTATION REQUEST Date of Query: 12/04/2022 01:49 PM EDT Patient Name: Juvenal Luz Admit Date: 12/03/2022 Dear Obdulia Leon, A review of the medical record indicates additional documentation may be needed. Please review below and update the documentation accordingly. Documentation includes the conditions of Left foot and leg cellulitis and Non-Insulin dependent type 2 Diabetes. On IV Doxycycline and IV Ceftreaxone Please clarify the relationship between these conditions: Yes, Left foot and leg cellulitis is related to / associated with / due to Non-Insulin dependent type 2 Diabetes No, Left foot and leg cellulitis is not related to / associated with / due to Non-Insulin dependent t ype 2 Diabetes Other (explain)Clinically unable to determine (explain)Thank you, Octavia Jeffries RN Use of terms such as suspected, likely, concern for, or probable (associated with a specific diagnosi s that is being evaluated, monitored, or treated as if it exists) are acceptable and can be coded in the inpatient se tting, when documented at the time of discharge. Please use your independent medical judgment in providing your response. THIS QUERY IS PART OF THE PERMANENT MEDICAL RECORD
[2022-12-04 15:23] VITALS: BP 106/56; PULSE 66; RESP 18; TEMP 36.3; O2SAT 94
[2022-12-04] MEDS: guaiFENesin 100 MG/5 ML LIQUID 10 ML PO (15:41)
--- NOTE | 2022-12-04 15:47 | PC.NURSE ---
Lungs exp wheezes,no SOB,Respiratory notified by secretary to board of commissioners requested updraft treatment for patient
[2022-12-04 16:12] LABS: Glucose, Whole Blood 116 mg/dL (60-115)
--- NOTE | 2022-12-04 16:46 | PC.NURSE ---
IV positional in left upper arm,nurse offered to insert new IV at the different location ,but patient states leave it as it is for now
--- NOTE | 2022-12-04 17:18 | P.CONWO_ITS ---
History of Present Illness Data of Consult Service Date: 12/04/22 Requesting physician: Obdulia Leon Primary Care Provider: Billy Longoria MD HPI Reason for consult: Left leg cellulitis and weeping. 77-year-old male with diabetes and COPD who presented to the hospital yesterday for left leg cellulitis. He was placed on IV antibiotics. Infectious disease consultation has been requested. He is currently receiving ceftriaxone. He feels better. He had an x-ray of his foot, the results of which are pending. He denies foot pain in general. Subacute rehabilitation is being considered after discharge though he does not state that he has long-standing ambulatory difficulties. Review of Systems Review of Systems: Appetite okay in the context of antibiotics. [facility] Medical History Benign essential hypertension CAD (coronary artery disease) COPD (chronic obstructive pulmonary disease) COPD (chronic obstructive pulmonary disease) Coronary artery disease Depression DM2 (diabetes mellitus, type 2) Erectile disorder due to medical condition in male HLD (hyperlipidemia) HTN (hypertension) Neuropathy Obesity (BMI 30-39.9) Obesity (BMI 30.0-34.9) FADY (obstructive sleep apnea) Primary osteoarthritis of both knees Psoriasis Pulmonary hypertension Pure hypercholesterolemia Stasis ulcer of right lower extremity Type 2 diabetes mellitus with diabetic neuropathy, unspecified Vitamin D deficiency Family History Father Medical history unknown Mother Cancer Surgical History No pertinent past surgical history Social History Household Members: None Housing: Apartment Do you presently have visiting nurse or other home services: Yes Alcohol intake: current Alcohol intake frequency: holidays/special occasions only Alcohol type: beer and wine Patient Tobacco Use Status: Never used Tobacco Tobacco use type: Cigarette Cigarette Packs Per Day: 0.5 Cigarettes Per Day: 10.0 Years Smoked: 50 e-Cigarette/Vaping Use: Never Used Second Hand Smoke Exposure: No Advance Directives Date on File: 02/03/22 service: No Current occupational status: retired Cognitive needs: No Hearing needs: No Vision needs: No Meds Allergies Allergy/AdvReac Type Severity Reaction Status Date / Time Fish Containing Products Allergy Severe ANAPHYLAXIS Verified 04/27/22 23:28 shellfish derived Allergy Severe ANAPHYLAXIS Verified 04/27/22 23:28 Active Medications: Current Medications Acetaminophen (Acetaminophen 325 Mg Tablet) 650 mg PO Q6H PRN PRN Reason: Pain, Mild (Pain Scale 1-3) Last Admin: 12/04/22 11:18 Dose: 650 mg Albuterol Sulfate (Albuterol Sulfate 90 Mcg 8 Gm Inhaler) 2 puff INHALE Q6H PRN PRN Reason: Respiratory Distress Albuterol/Ipratropium (Albuterol/Iprat 2.5/0.5mg 3 Ml Ampul.Neb) 3 ml INHALE Q6H PRN PRN Reason: wheezing Aspirin (Aspirin Enteric Coated 81 Mg Tablet.Dr) 81 mg PO DAILY [facility] Last Admin: 12/04/22 08:07 Dose: 81 mg Enoxaparin Sodium (Enoxaparin Sodium 40 Mg/0.4 Ml Syringe) 40 mg SUBCUT Q24H [facility] Last Admin: 12/03/22 20:59 Dose: 40 mg Gabapentin (Gabapentin 300 Mg Capsule) 300 mg PO TID PRN PRN Reason: Pain, Mild (Pain Scale 1-3) Last Admin: 12/04/22 11:18 Dose: 300 mg Guaifenesin (Guaifenesin 100 Mg/5 Ml Liquid) 10 ml PO Q4H PRN PRN Reason: Consult order Last Admin: 12/04/22 15:41 Dose: 10 ml Doxycycline Hyclate 100 mg/ (Sodium Chloride) 250 mls @ 166.67 mls/hr IV Q12H [facility] Last Admin: 12/04/22 16:29 Dose: 166.67 mls/hr Ceftriaxone Sodium 1 gm/ (Sodium Chloride) 50 mls @ 100 mls/hr IV Q24H [facility] Last Infusion: 12/03/22 21:01 Dose: Infused Insulin Human Lispro (Insulin Lispro 100 Unit/Ml 3 Ml Vial) 0 unit SUBCUT QIDACHS [facility]; Protocol Last Admin: 12/04/22 16:23 Dose: Not Given Lactic Acid (Ammonium Lactate 12 % Lotion 226 Gm Bottle) 1 appl TOPICAL BID [facility]; Protocol Last Admin: 12/04/22 08:10 Dose: 1 appl Ondansetron HCl (Ondansetron Hcl 4 Mg/2 Ml Vial) 4 mg IVPUSH Q8H PRN PRN Reason: Nausea and Vomiting Pravastatin Sodium (Pravastatin Sodium 40 Mg Tablet) 40 mg PO BEDTIME [facility] Last Admin: 12/03/22 20:58 Dose: 40 mg Sodium Chloride (0.9 % Sodium Chloride Flush 3 Ml Syringe) 3 ml IVFLUSH QSHIFT [facility] Last Admin: 12/04/22 15:33 Dose: 3 ml Vitamin D (Cholecalciferol (Vitamin D3) 25 Mcg Tablet) 50 mcg PO DAILY [facility] Last Admin: 12/04/22 08:07 Dose: 50 mcg Home Medications Medication Instructions Recorded Confirmed Last Taken Type albuterol sulfate 90 mcg/actuation 2 puff inhalation Q6H PRN 04/28/22 12/03/22 Unknown History aerosol inhaler Respiratory Distress gabapentin 300 mg capsule 300 mg PO TID PRN Pain 12/03/22 12/03/22 12/03/22 History Physical Exam Vital Signs and Narrative: Vital Signs: Last Vital Signs Temp 97.4 F 12/04/22 15:23 Pulse 66 12/04/22 15:23 Resp 18 12/04/22 15:23 BP 106/56 L 12/04/22 15:23 Pulse Ox 94 12/04/22 15:23 O2 Del Method Room Air 12/04/22 15:23 BMI result Body Mass Index 31.7 Compared to the picture obtained on admission, there is significantly less redness in the left leg. An Antonio wrap is removed to reveal reasonable edema control. There are actually no open ulcers associated with weeping though significant maceration of the dermis and epidermis is observed particularly of the lateral ankle and calcaneus. The dorsalis pedis pulses palpable. Slight focal tenderness of the 4th toe. No midfoot tenderness. Results Labs 12/04/22 05:29 12/04/22 05:29 Labs: Laboratory Results - last 24 hr 12/03/22 12/03/22 12/04/22 17:51 19:49 05:29 MCV 95.6 MCH 30.6 MCHC 32.0 RDW 13.2 Plt Count 206 MPV 9.8 Absolute Nucleated RBC 0.000 Nucleated RBC % (auto) 0.0 Anion Gap Estim Creat Clear Calc Estimated GFR POC Glucose 83 148 H Random Glucose Calcium 06/27/23 06/27/23 06/27/23 05:29 07:14 11:16 MCV MCH MCHC RDW Plt Count MPV Absolute Nucleated RBC Nucleated RBC % (auto) Anion Gap 12 Estim Creat Clear Calc 112.5 Estimated GFR > 60 POC Glucose 152 H 180 H Random Glucose 129 H Calcium 8.9 12/04/22 16:09 MCV MCH MCHC RDW Plt Count MPV Absolute Nucleated RBC Nucleated RBC % (auto) Anion Gap Estim Creat Clear Calc Estimated GFR POC Glucose 116 H Random Glucose Calcium Assessment and Plan (1) Cellulitis: Status: Acute Plan 69-year-old male with left leg cellulitis appropriately treated with antibiotics and compression. Alginate would be the preferred topical dressing and when cellulitis is under control, an eye towards compressive garments could be considered. He can follow-up in the wound clinic if desired, but only if there are open wounds associated with the drainage. Time Spent With Patient Time: Total time managing care of this patient today ____ minutes.
[2022-12-04] MEDS: Albuterol/Iprat 2.5/0.5MG 3 ML AMPUL.NEB INHALE (17:36)
[2022-12-04 17:38] VITALS: PULSE 66; RESP 16; O2SAT 94
[2022-12-04] MEDS: cefTRIAXone sodium 1 GM in 0.9 % Sodium Chloride 50 ML IV (19:41)
[2022-12-04 20:37] LABS: Glucose, Whole Blood 149 mg/dL (60-115)
[2022-12-04] MEDS: Enoxaparin Sodium 40 MG/0.4 ML SYRINGE SUBCUT (22:05)
[2022-12-04] MEDS: Pravastatin Sodium 40 MG TABLET PO (22:05)
[2022-12-04 23:58] VITALS: BP 135/60; PULSE 69; RESP 16; TEMP 36.6; O2SAT 94
[2022-12-05] MEDS: Acetaminophen 325 MG TABLET 650 MG PO ×2 (04:45→14:35)
[2022-12-05] MEDS: Doxycycline Hyclate 100 MG in 0.9 % Sodium Chloride 250 ML 166.67 MG IV ×2 (04:47→16:47)
[2022-12-05 07:16] VITALS: BP 144/64; PULSE 64; RESP 18; TEMP 36.2; O2SAT 97
[2022-12-05 07:34] LABS: Glucose, Whole Blood 134 mg/dL (60-115)
[2022-12-05] MEDS: Cholecalciferol (Vitamin D3) 25 MCG TABLET 50 MCG PO (09:30)
[2022-12-05] MEDS: Aspirin Enteric Coated 81 MG TABLET.DR PO (09:30)
[2022-12-05] MEDS: 0.9 % Sodium Chloride Flush 3 ML SYRINGE IVFLUSH ×2 (09:30→16:47)
[2022-12-05] MEDS: Ammonium Lactate 12 % Lotion 226 GM BOTTLE 1 APPL TOPICAL ×2 (09:31→20:43)
[2022-12-05 11:08] LABS: Glucose, Whole Blood 195 mg/dL (60-115)
[2022-12-05 11:29] VITALS: BP 144/64; PULSE 64; O2SAT 97
--- NOTE | 2022-12-05 12:09 | MHC.CM.PN ---
Addendum entered by Whit Sevilla 12/05/22 13:47: Correction IMM was delivered on 12/05/27, not 12/05/22 Original Note: IMM 12/05/22 Male 77 DX Cellulitis. Patient lives alone. He uses a WC. He is able to transfer independently. PT recommends Home with services. He receives Home making services through [facility]. [facility] is in place. DP resume group home supervisor services and [facility]. Patient will transport via BLS.
[2022-12-05] MEDS: Insulin Lispro 100 UNIT/ML 3 ML VIAL SUBCUT (12:12)
--- NOTE | 2022-12-05 13:52 | W.PM.IDCN ---
History of Present Illness Data of Consult Service Date: 12/05/22 Requesting physician: Obdulia Leon Primary Care Provider: Billy Longoria MD HPI Reason for consult: left lower leg erythema He presents after [facility] asked him to come in for left leg redness. He has no fever or chills but noticed left leg redness. He has had it for several days. He has diabetes,COPD. He denies injury or fever. There are no positive cultures. Review of Systems Review of Systems: Yes all other systems are reviewed and are negative [facility] Past Medical History Medical History Benign essential hypertension CAD (coronary artery disease) COPD (chronic obstructive pulmonary disease) COPD (chronic obstructive pulmonary disease) Coronary artery disease Depression DM2 (diabetes mellitus, type 2) Erectile disorder due to medical condition in male HLD (hyperlipidemia) HTN (hypertension) Neuropathy Obesity (BMI 30-39.9) Obesity (BMI 30.0-34.9) FADY (obstructive sleep apnea) Primary osteoarthritis of both knees Psoriasis Pulmonary hypertension Pure hypercholesterolemia Stasis ulcer of right lower extremity Type 2 diabetes mellitus with diabetic neuropathy, unspecified Vitamin D deficiency Family History Family History Father Medical history unknown Mother Cancer Family history: reviewed and not pertinent Surgical History Surgical History No pertinent past surgical history Social History Social History Household Members: None Housing: Apartment Do you presently have visiting nurse or other home services: Yes Alcohol intake: current Alcohol intake frequency: holidays/special occasions only Alcohol type: beer and wine Patient Tobacco Use Status: Never used Tobacco Tobacco use type: Cigarette Cigarette Packs Per Day: 0.5 Cigarettes Per Day: 10.0 Years Smoked: 50 e-Cigarette/Vaping Use: Never Used Second Hand Smoke Exposure: No Advance Directives Date on File: 02/03/22 service: No Current occupational status: retired Cognitive needs: No Hearing needs: No Vision needs: No Meds Allergies Allergy/AdvReac Type Severity Reaction Status Date / Time Fish Containing Products Allergy Severe ANAPHYLAXIS Verified 04/27/22 23:28 shellfish derived Allergy Severe ANAPHYLAXIS Verified 04/27/22 23:28 Active Medications: Current Medications Acetaminophen (Acetaminophen 325 Mg Tablet) 650 mg PO Q6H PRN PRN Reason: Pain, Mild (Pain Scale 1-3) Last Admin: 12/05/22 04:45 Dose: 650 mg Albuterol Sulfate (Albuterol Sulfate 90 Mcg 8 Gm Inhaler) 2 puff INHALE Q6H PRN PRN Reason: Respiratory Distress Albuterol/Ipratropium (Albuterol/Iprat 2.5/0.5mg 3 Ml Ampul.Neb) 3 ml INHALE Q6H PRN PRN Reason: wheezing Last Admin: 12/04/22 17:36 Dose: 3 ml Aspirin (Aspirin Enteric Coated 81 Mg Tablet.Dr) 81 mg PO DAILY [facility] Last Admin: 12/05/22 09:30 Dose: 81 mg Enoxaparin Sodium (Enoxaparin Sodium 40 Mg/0.4 Ml Syringe) 40 mg SUBCUT Q24H [facility] Last Admin: 12/04/22 22:05 Dose: 40 mg Gabapentin (Gabapentin 300 Mg Capsule) 300 mg PO TID PRN PRN Reason: Pain, Mild (Pain Scale 1-3) Last Admin: 12/04/22 19:47 Dose: 300 mg Guaifenesin (Guaifenesin 100 Mg/5 Ml Liquid) 10 ml PO Q4H PRN PRN Reason: Consult order Last Admin: 12/04/22 15:41 Dose: 10 ml Doxycycline Hyclate 100 mg/ (Sodium Chloride) 250 mls @ 166.67 mls/hr IV Q12H [facility] Last Infusion: 12/05/22 06:27 Dose: Infused Ceftriaxone Sodium 1 gm/ (Sodium Chloride) 50 mls @ 100 mls/hr IV Q24H [facility] Last Infusion: 12/04/22 21:46 Dose: Infused Insulin Human Lispro (Insulin Lispro 100 Unit/Ml 3 Ml Vial) 0 unit SUBCUT QIDACHS [facility]; Protocol Last Admin: 12/05/22 12:12 Dose: 2 unit Lactic Acid (Ammonium Lactate 12 % Lotion 226 Gm Bottle) 1 appl TOPICAL BID [facility]; Protocol Last Admin: 12/05/22 09:31 Dose: 1 appl Ondansetron HCl (Ondansetron Hcl 4 Mg/2 Ml Vial) 4 mg IVPUSH Q8H PRN PRN Reason: Nausea and Vomiting Pravastatin Sodium (Pravastatin Sodium 40 Mg Tablet) 40 mg PO BEDTIME [facility] Last Admin: 12/04/22 22:05 Dose: 40 mg Sodium Chloride (0.9 % Sodium Chloride Flush 3 Ml Syringe) 3 ml IVFLUSH QSHIFT [facility] Last Admin: 12/05/22 09:30 Dose: 3 ml Vitamin D (Cholecalciferol (Vitamin D3) 25 Mcg Tablet) 50 mcg PO DAILY [facility] Last Admin: 12/05/22 09:30 Dose: 50 mcg Home Medications Medication Instructions Recorded Confirmed Last Taken Type albuterol sulfate 90 mcg/actuation 2 puff inhalation Q6H PRN 04/28/22 12/03/22 Unknown History aerosol inhaler Respiratory Distress gabapentin 300 mg capsule 300 mg PO TID PRN Pain 12/03/22 12/03/22 12/03/22 History Physical Exam Vital Signs: Vital Signs: Last Vital Signs Temp 97.2 F 12/05/22 07:16 Pulse 64 12/05/22 11:29 Resp 18 12/05/22 07:16 BP 144/64 H 12/05/22 11:29 Pulse Ox 97 12/05/22 11:29 O2 Del Method Room Air 12/05/22 07:16 BMI result Body Mass Index 31.7 Extrem: Other: right lower extremity slightly scaly LLE redness and some scaliness,no deep reddenedulcers Results Labs 12/04/22 05:29 12/04/22 05:29 Microbiology Microbiology Results: Microbiology 12/03/22 12:56 Blood - Venous Blood Culture - Preliminary No growth after 24 hours. 12/03/22 12:56 Blood - Venous Blood Culture - Preliminary No growth after 24 hours. Assessment and Plan (1) Cellulitis: Status: Acute Appears more venous stasis ulcers and some mild cellulitis. There is no signs of osteomyelitis at this time. (2) Acute stasis dermatitis: Status: Acute (3) Stasis ulcer of right lower extremity: Status: Acute Plan Would continue Ceftriaxone and Doxycycline but if redness doesnt continue to resolve quickly would switch Ceftriaxone to Clindamycin 600 mg IV every eight hours for day or two and then po Augmentin 875 mg bid for 10 d total. Seek care with Vascular or Wound Clinic venous stasis changes. Time Spent With Patient Time: Total time managing care of this patient today ____ minutes.
--- NOTE | 2022-12-05 14:18 | HO.PM.IMPN ---
Subjective Subjective Date of Service: 12/05/22 Interval History: Left foot and leg cellulitis Review of Systems Denies any chest pain or shortness of breath, leg cellulitis area is minimally improving Physical Exam Vital Signs: Vital Signs: Last Vital Signs Temp 97.2 F 12/05/22 07:16 Pulse 64 12/05/22 11:29 Resp 18 12/05/22 07:16 BP 144/64 H 12/05/22 11:29 Pulse Ox 97 12/05/22 11:29 O2 Del Method Room Air 12/05/22 07:16 BMI result Body Mass Index 31.7 Appearance: Alert.? Oriented X3.? not in distress.? cvs: rrr, [id number] , no murmur res: clear to auscultation ,no rhonchii or wheezing abd: no rebound or guarding ,nt, bs present. ext pulses present , no cyanosis, left lower leg erythema /mild swelling neuro: axo3 , nonfocal. Objective Data Active Medications Acetaminophen (Acetaminophen 325 Mg Tablet) 650 mg PO Q6H PRN PRN Reason: Pain, Mild (Pain Scale 1-3) Last Admin: 12/05/22 04:45 Dose: 650 mg Documented By: LATOYA Albuterol Sulfate (Albuterol Sulfate 90 Mcg 8 Gm Inhaler) 2 puff INHALE Q6H PRN PRN Reason: Respiratory Distress Albuterol/Ipratropium (Albuterol/Iprat 2.5/0.5mg 3 Ml Ampul.Neb) 3 ml INHALE Q6H PRN PRN Reason: wheezing Last Admin: 12/04/22 17:36 Dose: 3 ml Documented By: ZINA Aspirin (Aspirin Enteric Coated 81 Mg Tablet.Dr) 81 mg PO DAILY [facility] Last Admin: 12/05/22 09:30 Dose: 81 mg Documented By: MARLON Enoxaparin Sodium (Enoxaparin Sodium 40 Mg/0.4 Ml Syringe) 40 mg SUBCUT Q24H [facility] Last Admin: 12/04/22 22:05 Dose: 40 mg Documented By: HOLLAND Gabapentin (Gabapentin 300 Mg Capsule) 300 mg PO TID PRN PRN Reason: Pain, Mild (Pain Scale 1-3) Last Admin: 12/04/22 19:47 Dose: 300 mg Documented By: HOLLAND Guaifenesin (Guaifenesin 100 Mg/5 Ml Liquid) 10 ml PO Q4H PRN PRN Reason: Consult order Last Admin: 12/04/22 15:41 Dose: 10 ml Documented By: HOLLAND Doxycycline Hyclate 100 mg/ (Sodium Chloride) 250 mls @ 166.67 mls/hr IV Q12H [facility] Last Infusion: 12/05/22 06:27 Dose: 0 mls/hr Documented By: LATOYA Ceftriaxone Sodium 1 gm/ (Sodium Chloride) 50 mls @ 100 mls/hr IV Q24H [facility] Last Infusion: 12/04/22 21:46 Dose: 0 mls/hr Documented By: HOLLAND Insulin Human Lispro (Insulin Lispro 100 Unit/Ml 3 Ml Vial) 0 unit SUBCUT QIDACHS [facility]; Protocol Last Admin: 12/05/22 12:12 Dose: 2 unit Documented By: MARLON Lactic Acid (Ammonium Lactate 12 % Lotion 226 Gm Bottle) 1 appl TOPICAL BID [facility]; Protocol Last Admin: 12/05/22 09:31 Dose: 1 appl Documented By: MARLON Ondansetron HCl (Ondansetron Hcl 4 Mg/2 Ml Vial) 4 mg IVPUSH Q8H PRN PRN Reason: Nausea and Vomiting Pravastatin Sodium (Pravastatin Sodium 40 Mg Tablet) 40 mg PO BEDTIME [facility] Last Admin: 12/04/22 22:05 Dose: 40 mg Documented By: HOLLAND Sodium Chloride (0.9 % Sodium Chloride Flush 3 Ml Syringe) 3 ml IVFLUSH QSHIFT [facility] Last Admin: 12/05/22 09:30 Dose: 3 ml Documented By: MARLON Vitamin D (Cholecalciferol (Vitamin D3) 25 Mcg Tablet) 50 mcg PO DAILY [facility] Last Admin: 12/05/22 09:30 Dose: 50 mcg Documented By: MARLON Labs 12/04/22 05:29 12/04/22 05:29 Labs: Laboratory Results - last 24 hr 12/04/22 12/04/22 12/05/22 16:09 20:34 07:18 POC Glucose 116 H 149 H 134 H 12/05/22 11:04 POC Glucose 195 H Microbiology Microbiology Results: Microbiology 12/03/22 12:56 Blood Culture - Preliminary Blood - Venous No growth after 24 hours. 12/03/22 12:56 Blood Culture - Preliminary Blood - Venous No growth after 24 hours. Assessment and Plan (1) Cellulitis: Status: Acute Assessment and Plan: 77-year-old male with a PMH significant for?[id number] diabetes type 2 HLD, peripheral neuropathy, COPD, and hx of left lower leg cellulitis who presents to the ED for evaluation of worsening left lower leg swelling and redness. Pt will be admitted to the hospital for treatment further evaluation of left leg cellulitis. Left foot and leg cellulitis No concern for sepsis Patient received Zosyn in the emergency room on doxycycline and ceftriaxone, started 12/03/2022 Ammonium lactate lotion, LEA wrap Wound care consult Bilateral lower leg edema Pt with no known history of heart failure BNP WNL at 61 hold lasix patient refused. [id number] type 2 diabetes Hold home meds Diabetic diet Sliding-scale insulin HLD Continue statin COPD Patient with mild wheezing, baseline SOB Does not appear to be in acute exacerbation Continue home inhalers, DuoNebs p.r.n. Peripheral neuropathy Continue gabapentin Full Code Attending:?Dr Bartlett. DVT Prophylaxis: Lovenox inpatient need -?left leg and foot cellulitis-need IV antibiotics,blood cultures pending. Time Spent With Patient Time: Total time managing care of this patient today ____ minutes. Quality Stroke Does the patient have a stroke diagnosis?: No VTE Prior VTE?: No VTE Risk Level:: Medical - moderate - high VTE Device Contraindication: Treatment Not Indicated VTE Drug Contraindication: N/A - Med Ordered
[2022-12-05] MEDS: guaiFENesin 100 MG/5 ML LIQUID 10 ML PO (14:35)
[2022-12-05 15:14] VITALS: BP 139/64; PULSE 65; RESP 21; TEMP 36.7; O2SAT 95
[2022-12-05 16:35] LABS: Glucose, Whole Blood 141 mg/dL (60-115)
[2022-12-05] MEDS: Gabapentin 300 MG CAPSULE PO (19:30)
--- NOTE | 2022-12-05 19:33 | PC.NURSE ---
Addendum entered by Anjelica Vogel RN 12/05/22 21:09: Patient agreed to have new IV inserted now ,IV antibiotic administered Original Note: Patient co left hand IV site discomfort,IV removed,patient tolerated it well.Attempted to insert a new IV but patient said it hurts and he does not want it to be done,explained the need for IV antibiotic,patient said he may agree to new IV later but no guarantee,will return later and check with patient
[2022-12-05 20:18] LABS: Glucose, Whole Blood 141 mg/dL (60-115)
[2022-12-05] MEDS: Pravastatin Sodium 40 MG TABLET PO (20:42)
[2022-12-05] MEDS: Enoxaparin Sodium 40 MG/0.4 ML SYRINGE SUBCUT (20:42)
[2022-12-05] MEDS: cefTRIAXone sodium 1 GM in 0.9 % Sodium Chloride 50 ML IV (21:03)
[2022-12-05 23:46] VITALS: BP 133/60; PULSE 76; RESP 18; TEMP 36.3; O2SAT 93
[2022-12-06] MEDS: 0.9 % Sodium Chloride Flush 3 ML SYRINGE IVFLUSH ×2 (00:06→08:14)
[2022-12-06] MEDS: guaiFENesin 100 MG/5 ML LIQUID 10 ML PO (00:16)
[2022-12-06 07:36] LABS: Glucose, Whole Blood 171 mg/dL (60-115)
[2022-12-06 08:00] VITALS: BP 132/61; PULSE 65; RESP 20; TEMP 36.4; O2SAT 95
[2022-12-06] MEDS: Aspirin Enteric Coated 81 MG TABLET.DR PO (08:13)
[2022-12-06] MEDS: Cholecalciferol (Vitamin D3) 25 MCG TABLET 50 MCG PO (08:13)
[2022-12-06] MEDS: Insulin Lispro 100 UNIT/ML 3 ML VIAL SUBCUT (08:13)
[2022-12-06] MEDS: Gabapentin 300 MG CAPSULE PO (09:36)
[2022-12-06] MEDS: Doxycycline Monohydrate 100 MG CAPSULE PO (09:36)
[2022-12-06] MEDS: Amoxicillin/Potassium Clav 875 MG TABLET PO (09:36)
[2022-12-06] MEDS: Ammonium Lactate 12 % Lotion 226 GM BOTTLE 1 APPL TOPICAL (09:47)
--- NOTE | 2022-12-06 10:29 | PM.DS ---
DS: Providers Provider Date of Service: 12/06/22 Date of admission: 12/03/22 16:18 Date of discharge: 12/06/22 Primary care physician: Billy Longoria MD Admitting clinician: Obdulia Leon Attending physician on admission: Obdulia Leon Consults: 12/04/22 10:34 Consult to Infectious Diseases Routine Consulting Provider: [facility] Infectious Disease Reason for consultation: Leg cellulitis 12/04/22 10:41 Consult to Wound Care Stat Consulting Provider: Noelle Mendoza Reason for consultation: BILATERAL LEG CELLUITIS CHRONIC WHEEPING WOUNDS Has provider been notified: Yes DS: Diagnosis Discharge Diagnosis (1) Cellulitis: Status: Acute DS: Summary Hospital Course Hospital Course: Date of service and discharge: 12/06/2022 Vitals reviewed and patient seen and examined, physical exam -leg cellulitis seems to be improved. Please see hospital course section for further details. hospital course: Patient came to the hospital because of having left leg erythema and discomfort-admitted for cellulitis and started on IV antibiotics, blood cultures sent: Patient leg swelling and erythema and discomfort seems to be improving with above supportive care in addition patient was seen by wound care-recommended to continue compressive garments for possible venostasis changes. Patient will go home with VNA and PT. please complete course of antibiotics. Patient is also strongly advised to follow-up with wound care out patiently. plan: please complete course of antibiotics. Continue current dressing as well as compressive garments. Patient is also strongly advised to follow-up with wound care out patiently. Above management discussed the patient detail length he understand and in agreement with above plan, time spent 50 minute. Time Spent with Patient Time attestation: Total time managing care of this patient today ____ minutes. Discharge coordination time: Greater than 30 minutes Quality: Safe Use of Opioids Does Pt have an Active Cancer Diagnosis on the Problem List?: No Quality: Stroke Does the patient have a stroke diagnosis?: No Physical Exam Vital Signs: Vital Signs: Last Vital Signs Temp 97.6 F 12/06/22 08:00 Pulse 65 12/06/22 08:00 Resp 20 12/06/22 08:00 BP 132/61 12/06/22 08:00 Pulse Ox 95 12/06/22 08:00 O2 Del Method Room Air 12/06/22 08:00 BMI result Body Mass Index 31.7 Appearance: Alert.? Oriented X3.? not in distress.? cvs: rrr, [id number] , no murmur res: clear to auscultation ,no rhonchii or wheezing abd: no rebound or guarding ,nt, bs present. ext pulses present , no cyanosis, left lower leg erythema /mild swelling neuro: axo3 , nonfocal. DS: Data Data Completed and Pending Labs on day of discharge: Laboratory Results - last 24 hr 12/05/22 12/05/22 12/05/22 11:04 16:31 20:08 POC Glucose 195 H 141 H 141 H 12/06/22 07:04 POC Glucose 171 H Preliminary micro results at discharge 12/03/22 12:56 Blood Culture - Preliminary Blood - Venous No growth after 48 hours. 12/03/22 12:56 Blood Culture - Preliminary Blood - Venous No growth after 48 hours. Imaging Chest x-ray: Radiologist's impression: ITS Impressions Chest X-Ray 12/03/22 13:43 IMPRESSION: Unremarkable examination. Foot X-Ray 12/03/22 13:43 IMPRESSION: Diffuse osteoporosis of left foot with moderate dorsal mid and distal foot soft tissue. No soft tissue gas or swelling visualized. No visible acute fracture or findings suggestive of osteomyelitis. Small calcaneal heel and retrocalcaneal enthesophytes. Venous Duplex 12/03/22 14:21 IMPRESSION: No DVT demonstrated in the bilateral lower extremity. Discharge Plan Discharge Anticipated Discharge Date/Time: 12/06/22 10:15 Patient Disposition: Home Health Service Discharge Diagnosis: leg cellulitis ,ch venostasis changes Referrals: Billy Longoria MD [Primary Care Provider] - 1 Week Discharge Medications: New amoxicillin-pot clavulanate 875-125 mg Tablet 1 tab PO Q12H Qty: 14 0RF doxycycline monohydrate 100 mg Capsule 100 mg PO Q12H Qty: 14 0RF Continued (DME) CUSHION SKIN PROTECTION LESS THAN 22 -- E2503 See Rx Instructions .Route .MEDSUPPLY Qty: 1 0RF Rx Instructions: As directed (DME) ELECTRIC WHEELCHAIR See Rx Instructions .Route .MEDSUPPLY Qty: 1 0RF Rx Instructions: for lifetime use (DME) ADJUSTABLE HEIGHT ARM ASSEMBLY -- E0973 See Rx Instructions .Route .MEDSUPPLY Qty: 2 0RF Rx Instructions: As directed (DME) HEEL LOOPS -- E0951 See Rx Instructions .Route .MEDSUPPLY Qty: 2 0RF Rx Instructions: As directed (DME) BATTERY -- E2365 See Rx Instructions .Route .MEDSUPPLY Qty: 1 0RF Rx Instructions: As directed cholecalciferol (vitamin D3) 50 mcg (2,000 unit) capsule 50 mcg PO DAILY 90 Days Qty: 90 3RF glipizide 10 mg tablet 10 mg PO BID 90 Days Qty: 180 1RF metformin 500 mg tablet 500 mg PO BID 90 Days Qty: 180 1RF pravastatin 40 mg tablet 40 mg PO BEDTIME Qty: 90 1RF albuterol sulfate 90 mcg/actuation Hfa Aerosol Inhaler 2 puff INHALATION Q6H PRN (Reason: Respiratory Distress) gabapentin 300 mg capsule 300 mg PO TID PRN (Reason: Pain) ipratropium-albuterol 0.5 mg-3 mg(2.5 mg base)/3 mL solution for nebulization 3 ml inhalation Q6H PRN (Reason: wheezing) 30 Days Qty: 360 3RF aspirin 81 mg tablet,delayed release (DR/EC) 81 mg PO DAILY Qty: 30 0RF Discharge Orders: Discharge Order (Routine); Ordered 12/06/22 Ordered By: Obdulia Leon Diet: Advance to usual diet Activity on Discharge: As tolerated Stand Alone Forms: Patient Portal Discharge page Care Plan Goals: Patient came to the hospital because of having left leg erythema and discomfort-admitted for cellulitis and started on IV antibiotics, blood cultures sent: Patient leg swelling and erythema and discomfort seems to be improving with above supportive care in addition patient was seen by wound care-recommended to continue compressive garments for possible venostasis changes. Patient was also seen by PT recommended - home with VNA and PT. please complete course of antibiotics. Patient is also strongly advised to follow-up with wound care out patiently. Health Concerns: As above. Plan of Treatment: As above. Assessment: As above.
--- NOTE | 2022-12-06 11:07 | MHC.CM.PN ---
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
[2022-12-06 11:23] LABS: Glucose, Whole Blood 149 mg/dL (60-115)
--- NOTE | 2022-12-06 11:51 | P.F2F_ITS ---
Service Date Service Date: 12/06/22 Encounter Date of encounter: 12/06/22 Encounter: leg cellulitis Reasons for Services Signs and symptoms assessed: Monitor for leg pain or worsening erythema or swelling. Reason for group home: medication management, medication treatment and teach disease management Reason for physical therapy: home safety and mobility, therapeutic exercises, restore joint function, gait/transfer training, assess need for DME, ADL training, energy conservation and other MD Overseeing Care: Billy Longoria Homebound: Leaving the home is medically contraindicated at this time without the asist of a device and/or another person due th the listed conditions above and below. Reason homebound: weakness related to hospital stay Homebound supporting statement: Patient multiple comorbidities, lives alone, is generalized weak posthospitalization and need help to go to appointments and blood draws, also PT Certification: Based on the above findings, I certify that this patient is confined to the home and needs intermittent group home care, physical therapy and/or speech therapy, or continues to need occupational therapy. The patient is under my care, and I have initiated the establishment of the plan of care. The patient will be followed by a physician who will periodically review the plan of care. Time Spent With Patient Time: Total time managing care of this patient today ____ minutes.
== END 2022-12-06 13:32 | disposition home health service (06) | DRG 638 ==
LOC: HO.ED 16:02 → HO.EDOVER 16:24 → HO.S3 16:49
PROVIDERS: Physician Assistant; Admitting Provider Student in an Organized Health Care Education/Training Program; Emergency Provider Emergency Medicine; PCP Internal Medicine; Visit Provider Internal Medicine
DX: E11.628 Type 2 diabetes mellitus with other skin complications (principal); I87.331 Chronic venous hypertension (idiopathic) with ulcer and inflammation of right lower extremity; L03.116 Cellulitis of left lower limb; I25.10 Atherosclerotic heart disease of native coronary artery without angina pectoris; J44.9 Chronic obstructive pulmonary disease, unspecified; E11.42 Type 2 diabetes mellitus with diabetic polyneuropathy; E78.00 Pure hypercholesterolemia, unspecified; Z79.82 Long term (current) use of aspirin; Z79.84 Long term (current) use of oral hypoglycemic drugs; Z79.899 Other long term (current) drug therapy
CPT/HCPCS: 36415; 71045; 73630; 80048; 80076; 82947; 83605; 83735; 83880; 85025; 85027; 85610; 87040; 93970; 94640; 97162; 97530; 99285; J0696; J1650; J1940; J2543

== ENCOUNTER 2022-12-24 08:58 | Outpatient (RCR) | payer MEDICARE, BC, SELFPAY | END 2023-10-22 09:00 | disposition admitted as inpatient to this hospital (09) | LOC: HO.WCC 08:58 | PROVIDERS: PCP Internal Medicine; Visit Provider Physician Assistant | DX: E11.622 Type 2 diabetes mellitus with other skin ulcer (principal); L97.821 Non-pressure chronic ulcer of other part of left lower leg limited to breakdown of skin; E11.51 Type 2 diabetes mellitus with diabetic peripheral angiopathy without gangrene; E11.40 Type 2 diabetes mellitus with diabetic neuropathy, unspecified; Q82.0 Hereditary lymphedema; I87.2 Venous insufficiency (chronic) (peripheral); I10 Essential (primary) hypertension; F17.210 Nicotine dependence, cigarettes, uncomplicated; Z99.3 Dependence on wheelchair | CPT/HCPCS: 29581; 97597; 97598; 97602; 99212; 99213 ==

== ENCOUNTER 2022-12-27 13:00 | Outpatient (AMB) | payer MEDICARE, BC, SELFPAY ==
--- NOTE | 2022-12-27 13:00 | MHC.PC.OV ---
Vital Signs 12/27/22 13:01 Height 6 ft 2 in BP 132/68 Blood Pressure Location Lt brachial Position Sitting Pulse 70 Pulse Source Pulse Oximeter Pulse Oximetry (%) 97 Oxygen Delivery Method Room Air Intake Visit Reasons: follow up Allergies Fish Containing Products Allergy (Severe, Verified 12/27/22 13:23) ANAPHYLAXIS shellfish derived Allergy (Severe, Verified 12/27/22 13:23) ANAPHYLAXIS Medication List - Last Reconciled 12/27/22 by Jaylon Kendrick PA-C [ADJUSTABLE HEIGHT ARM ASSEMBLY -- E0973 As directed] albuterol sulfate 90 mcg/actuation 2 puffs inhalation Q6H PRN aspirin 81 mg PO DAILY [BATTERY -- E2365 As directed] cholecalciferol (vitamin D3) 50 mcg PO DAILY 90 days [CUSHION SKIN PROTECTION LESS THAN 22 -- E2503 As directed] [ELECTRIC WHEELCHAIR for lifetime use] gabapentin 300 mg PO TID PRN glipizide 10 mg PO BID 90 days [HEEL LOOPS -- E0951 As directed] ipratropium-albuterol 0.5 mg-3 mg(2.5 mg base)/3 mL 3 mL inhalation Q6H PRN 30 days metformin 500 mg PO BID 90 days pravastatin 40 mg PO BEDTIME Tobacco use date assessed: 12/27/22 HPI follow up HPI Details Patient is a 77-year-old male here today for follow-up on his lower left leg cellulitis. Was recently admitted to [facility] for swelling and erythema of his left lower extremity. Found to have a venous stasis ulcer and was placed on IV antibiotics. Ultrasound was done while in the hospital though did not have any acute DVTs. Patient was transitioned to p.o. antibiotics and has finished full course. Now has follow-up with wound care here in [place]. Unfortunately patient continues to smoke and likely has peripheral arterial disease causing his ulcers. Offered referral to vascular surgeon for evaluation though patient adamantly declines. He does not want any procedures or amputations done on him [facility] Medical History Benign essential hypertension CAD (coronary artery disease) COPD (chronic obstructive pulmonary disease) COPD (chronic obstructive pulmonary disease) Coronary artery disease Depression DM2 (diabetes mellitus, type 2) Erectile disorder due to medical condition in male HLD (hyperlipidemia) HTN (hypertension) Neuropathy Obesity (BMI 30-39.9) Obesity (BMI 30.0-34.9) FADY (obstructive sleep apnea) Primary osteoarthritis of both knees Psoriasis Pulmonary hypertension Pure hypercholesterolemia Stasis ulcer of right lower extremity Type 2 diabetes mellitus with diabetic neuropathy, unspecified Vitamin D deficiency Surgical History No pertinent past surgical history Family History Father Medical history unknown Mother Cancer Social History Household Members: None Housing: Apartment Do you presently have visiting nurse or other home services: Yes Alcohol intake: current Alcohol intake frequency: holidays/special occasions only Alcohol type: beer and wine Patient Tobacco Use Status: Current everyday Tobacco user Tobacco use type: Cigarette Cigarette Packs Per Day: 0.5 Cigarettes Per Day: 10.0 Years Smoked: 50 e-Cigarette/Vaping Use: Never Used Second Hand Smoke Exposure: No Advance Directives Date on File: 02/03/22 service: No Current occupational status: retired Cognitive needs: No Hearing needs: No Vision needs: No Questionnaire PHQ-9 Over the last 2 weeks, how often have you been bothered by any of the following problems? 1. Little interest or pleasure in doing things: not at all 2. Feeling down, depressed, or hopeless: not at all 3. Trouble falling or staying asleep, or sleeping too much: not at all 4. Feeling tired or having little energy: not at all 5. Poor appetite or overeating: not at all 6. Feeling bad about yourself - or that you are a failure or have let yourself or your family down: not at all 7. Trouble concentrating on things, such as reading the newspaper or watching television: not at all 8. Moving or speaking so slowly that other people could have noticed. Or the opposite - being so fidgety or restless that you have been moving around a lot more than usual: not at all 9. Thoughts that you would be better off or of hurting yourself in some way: not at all Total score: 0 Depression Screening Interpretation: Negative Source: Developed by Drs. Edu Christopher, Vero Stanton, Jeremy Gurrola and colleagues, with an educational chalo from [employer] Thrive Questionnaire Date Thrive assessed: 12/27/22 I am a: Patient What is your living situation today?: I have a steady place to live Within the past 12 months, did the food you bought not last and you didn't have the money to get more?: Never true Within the past 12 months, did you worry whether your food would run out before you got money to buy more?: Never true Do you have trouble paying for medicines?: No Do you have trouble getting transportation to medical appointments?: No Do you have trouble paying your heating and electricity bill?: No Do you have trouble taking care of your child, family member or friend?: No Do you have trouble with day-to-day activities such as bathing, preparing meals, shopping, managing finances, etc.?: No Are you currently unemployed and looking for a job?: No Are you interested in more education?: No Currently or been in a relationship where the following occur: no concerns reported AUDIT C Alcohol Use Questionnaire (AUDIT-C) 1. How often do you have a drink containing alcohol?: Monthly or less 2. How many drinks containing alcohol do you have on a typical day when you are drinking?: 1 or 2 3. How often do you have six or more drinks on one occasion?: Never Total Score: 1 Score Reviewed/Action Taken: Yes JAIRO-7 AMB Questionnaire JAIRO-7 Date JAIRO - 7 assessed: 12/27/22 Feeling nervous, anxious, or on edge: 0 = Not at all Not being able to stop or control worryin = Not at all Worrying too much about different things: 0 = Not at all Trouble relaxin = Not at all Being so restless that it is hard to sit still: 0 = Not at all Becoming easily annoyed or irritable: 0 = Not at all Feeling afraid as if something awful might happen: 0 = Not at all Total JAIRO-7 score (0-4 normal; 5-9 mild; 10-14 moderate; 15-21 severe): 0 Source: Developed by Vero Barrow, Jeremy Gurrola and colleagues, with an educational chalo from [employer] Review of Systems Const Denies headache(s) Eyes Denies loss of vision ENT Denies vertigo, Denies dizziness, Denies headache(s) and Denies sore throat Card Denies chest pain, Denies leg edema and Denies lightheadedness Resp Denies cough, Denies hemoptysis and Denies wheezing GI Denies abdominal pain, Denies melena, Denies constipation, Denies diarrhea and Denies vomiting Denies dysuria, Denies urinary frequency and Denies urinary urgency Musc Denies arthralgias, Denies joint swelling, Denies numbness and Denies tingling Neuro Denies Abnormal speech present, Denies behavioral changes, Denies vertigo, Denies dizziness, Denies headache(s), Denies loss of vision, Denies memory loss, Denies numbness and Denies tingling Psych Denies anxiety, Denies behavioral changes, Denies depression, Denies memory loss and Denies panic attacks Tai/Lymph Denies easy bleeding and Denies easy bruising Aller/Immun Denies wheezing Physical exam (Primary Care) Vital Signs: Last Vital Signs Pulse 70 12/27/22 13:01 BP 132/68 12/27/22 13:01 Pulse Ox 97 12/27/22 13:01 Oxygen Delivery Method Room Air 12/27/22 13:01 Tobacco/Smoking Status: Tobacco use Status Tobacco use date assessed 12/27/22 12/27/22 13:10 Patient Tobacco Use Status Current everyday Tobacco 12/27/22 13:10 Tobacco use type Cigarette 12/27/22 13:10 e-Cigarette/Vaping Use Never Used 12/27/22 13:10 Are you ready to quit: Yes Tobacco cessation counseling provided: Yes Relapse Prevention: discussed negative mood or depression after quitting, weight gain after smoking is common and discussed dietary, exercise and/or lifestyle changes Number of minutes spent counselin CPT code: 41384 - 4-10 Minutes PHQ-9: PHQ-9 Score PHQ-9: Total score 0 12/27/22 13:31 Depression Screening Interpretation: Negative Thrive Assessment: Date of Thrive Assessment Date Thrive assessed 12/27/22 12/27/22 13:10 Currently or been in a relationship where the following occur: no concerns reported Const General: healthy appearing, no acute distress, alert and awake Nutritional Appearance: well nourished Orientation/consciousness: oriented to person, oriented to place and oriented to time HENMT Ears: TM's normal bilaterally General nose exam: Normal nasal mucous membranes and turbinates present Eyes Conjunctivae: conjunctivae normal Sclerae: sclerae normal Pupils: Equal, round and reactive pupils present Neck Neck: Yes no lymphadenopathy and Yes no JVD Thyroid: Thyroid normal Carotids: no bruits Resp Effort & Inspection: normal respiratory effort and not tachypneic Auscultation: no crackles, no rales, no rhonchi and no wheezes Cardio Rate: regular rate Rhythm: regular rhythm Heart sounds: no murmurs and normal S1 and S2 GI Palpation (GI): Soft to palpation, nontender, no hepatomegaly and no splenomegaly Auscultation: normal bowel sounds Skin General skin exam: no rashes or lesions noted and dry skin Neuro General: oriented to person, oriented to place and oriented to time Cranial nerves: Yes Equal, round and reactive pupils present Speech: No Abnormal speech present Gait exam (Neuro): Normal gait present Motor exam (neuro): no tremor noted Extrem Other: BILATERAL LOWER EXTREMITIES EDEMATOUS TO THE LEVEL OF KNEES, ERYTHEMA SEEMS BETTER ACCORDING TO PATIENT. Right upper extremity: full ROM Left upper extremity: full ROM Right lower extremity: full ROM; no edema Left lower extremity: full ROM; no edema Psych Mental Status: mental status grossly normal Speech and movement: Normal speech and movement present Affect: normal affect Attitude: cooperative Thought process: Normal thought process present Assessment and Plan Assessment & Plan (1) Cellulitis: Code(s): L03.90 - Cellulitis, unspecified Qualifiers: Laterality: unspecified laterality Site of cellulitis: extremity Site of cellulitis of extremity: lower extremity Qualified Code(s): L03.119 - Cellulitis of unspecified part of limb Plan: Status post hospitalization and has finished all antibiotics. Like somewhat better though still edematous. Now followed by wound management whom is treating legs. Also has visiting nurse coming to do wound management as well. (2) Stasis ulcer of right lower extremity: Code(s): I83.019 - Varicose veins of right lower extremity with ulcer of unspecified site; L97.919 - Non-pressure chronic ulcer of unspecified part of right lower leg with unspecified severity Plan: We did discuss the possibility of seeing a vascular surgeon does his vascular trigger is likely compromised due to his years and years of smoking. He does understand this though does not want any procedures done on him and refuses to see vascular surgeon. (3) Tobacco dependence: Code(s): F17.200 - Nicotine dependence, unspecified, uncomplicated Plan: Patient does understand he needs to quit smoking though at this time is not interested. Has tried nicotine replacement in the past though has not been effective. Medications: Discontinued gabapentin 300 mg PO TID 30 days 90 caps 1RF pain M17.0 - Bilateral primary osteoarthritis of knee Coding Level of Care Code Est Pt Level 4 (69103) Diagnoses Cellulitis L03.119 Laterality: unspecified laterality Site of cellulitis: extremity Site of cellulitis of extremity: lower extremity Stasis ulcer of right lower extremity I83.019; L97.919 Tobacco dependence F17.200 Additional Codes PHQ-9 - 81505 - PHQ-9 Billing: Y ([id number]) Vital Signs *Quality* - CPT code: 55097 - 4-10 Minutes ([id number])
[2022-12-27 13:01] VITALS: BP 132/68; PULSE 70; O2SAT 97
== END 2022-12-27 13:44 | disposition home or self-care (01) ==
PROVIDERS: PCP Internal Medicine; Visit Provider Physician Assistant
DX: I83.019 Varicose veins of right lower extremity with ulcer of unspecified site (principal); L03.119 Cellulitis of unspecified part of limb; L97.919 Non-pressure chronic ulcer of unspecified part of right lower leg with unspecified severity; F17.200 Nicotine dependence, unspecified, uncomplicated
CPT/HCPCS: 99214

== ENCOUNTER 2023-03-04 13:26 | Inpatient (IN) | payer MEDICARE, BC, SELFPAY ==
--- NOTE | ~2023-03-04 | US_ITS ---
EXAMINATION: US VENOUS ULTRASOUND WITH DOPPLER LOWER EXTREMITY, LEFT CLINICAL INFORMATION: Left lower extremity erythema. COMPARISON: Venous ultrasound dated 12/03/2022. TECHNIQUE: Ultrasound of the deep veins is performed from the hip to the calf with compression sonography and color and pulse Doppler assessment. Spectral analysis with color-flow imaging is performed. FINDINGS: There is normal venous compression and respiratory variation and augmented flow. The visualized common femoral vein, superficial femoral vein, profunda femoral vein, popliteal vein, and the visible trifurcation region shows no evidence of deep venous thrombosis. There is no significant popliteal fossa cyst. If the patient's symptoms persist, followup ultrasound in 5 days 7 days might be of value to exclude proximal propagation from a non-visualized calf vein. US/US venous duplex LE IMPRESSION: No DVT demonstrated in the left lower extremity.
[2023-03-04 13:39] VITALS: BP 138/92; BP 153/62; PULSE 70; PULSE 72; RESP 18; TEMP 36.7; O2SAT 100; O2SAT 98
--- NOTE | 2023-03-04 13:54 | ED_ITS ---
HPI - General Adult General Chief complaint: General Medical Stated complaint: WORSENING CELLULITIS LT LEG/FOOT PER EMS Time Seen by Provider: 03/04/23 13:46 Source: patient and EMS Mode of arrival: EMS Limitations: no limitations History of Present Illness HPI narrative: Patient comes to the emergency room by ambulance. Earlier today, patient's visiting nurse went to check on his left leg, she noted that it was significantly erythematous, weeping. The last time that the patient was seen by his visiting nurse was 3 days ago. Patient denies any pain or fever. Related Data Home Medications Medication Instructions Recorded Confirmed albuterol sulfate 90 mcg/actuation 2 puff inhalation Q6H PRN 04/28/22 12/27/22 aerosol inhaler Respiratory Distress Previous Rx's Medication Instructions Recorded aspirin 81 mg tablet,delayed 81 mg PO DAILY #30 tabs 04/12/20 release ipratropium 0.5 mg-albuterol 3 mg 3 ml inhalation Q6H PRN wheezing 03/15/21 (2.5 mg base)/3 mL nebulization 30 days #360 mL soln ADJUSTABLE HEIGHT ARM ASSEMBLY -- #2 ea 03/29/22 E0973 BATTERY -- E2365 #1 ea 03/29/22 CUSHION SKIN PROTECTION LESS THAN #1 ea 03/29/22 22 -- E2503 ELECTRIC WHEELCHAIR #1 ea 03/29/22 HEEL LOOPS -- E0951 #2 ea 03/29/22 cholecalciferol (vitamin D3) 50 50 mcg PO DAILY 90 days #90 caps 06/23/22 mcg (2,000 unit) capsule pravastatin 40 mg tablet 40 mg PO BEDTIME #90 tabs 10/30/22 gabapentin 300 mg capsule 300 mg PO TID PRN Pain 30 days #90 12/31/22 caps glipizide 10 mg tablet 10 mg PO BID 90 days #180 tabs 01/30/23 metformin 500 mg tablet 500 mg PO BID 90 days #180 tabs 01/30/23 Allergies Allergy/AdvReac Type Severity Reaction Status Date / Time Fish Containing Products Allergy Severe ANAPHYLAXIS Verified 12/27/22 13:23 shellfish derived Allergy Severe ANAPHYLAXIS Verified 12/27/22 13:23 Review of Systems 2 Review of Systems: Constitutional : No Weight loss, No Fever, No Chills, No Night Sweats, No Fatigue, No Malaise ENT/Mouth : No Hearing loss, No Ear Pain, No Nasal Congestion, No Sinus Pain, No Hoarseness, No sore throat, No Rhinorrhea, No Swallowing Difficulty Eyes: No Eye Pain, No Swelling, No Redness, No Foreign Body, No Discharge, No Vision Changes Cardiovascular : No Chest Pain, No SOB, No Dyspnea on Exertion, No Orthopnea, No Edema, No Palpitations Respiratory : No Cough, No Sputum, No Wheezing, No Smoke Exposure, No Dyspnea Gastrointestinal : No Nausea, No Vomiting, No Diarrhea, No Constipation, No abdominal Pain, No Hematochezia, No Melena Genitourinary : no irregular bleeding, No Dysuria, No Urinary Frequency, No Hematuria, No Urinary Incontinence, No Urgency, No Flank Pain, No Urinary Flow Changes, No Hesitancy Musculoskeletal : No joint pain, No Myalgias, No Joint Swelling Skin : Increased erythema and weeping on the left lower extremity Neuro : No Weakness, No Numbness, No Paresthesias, No Loss of Consciousness, No Dizziness, No Headache Psych : No Anxiety/Panic, No Depression, No SI/HI/AH/VH, No Social Issues, Heme/Lymph: No Bruising, No Bleeding,No Lymphadenopathy Endocrine : No Polyuria, No Polydipsia, No Temperature Intolerance PMFSH Past Medical History Medical History Stasis ulcer of right lower extremity Obesity (BMI 30-39.9) Depression Psoriasis Primary osteoarthritis of both knees Vitamin D deficiency Coronary artery disease Pure hypercholesterolemia Benign essential hypertension Type 2 diabetes mellitus with diabetic neuropathy, unspecified COPD (chronic obstructive pulmonary disease) FADY (obstructive sleep apnea) Obesity (BMI 30.0-34.9) Neuropathy Erectile disorder due to medical condition in male COPD (chronic obstructive pulmonary disease) Pulmonary hypertension HLD (hyperlipidemia) HTN (hypertension) DM2 (diabetes mellitus, type 2) CAD (coronary artery disease) Surgical History No pertinent past surgical history Family History Family History Father Medical history unknown Mother Cancer Social History Social History Household Members: None Housing: Apartment Do you presently have visiting nurse or other home services: Yes Alcohol intake: current Alcohol intake frequency: holidays/special occasions only Alcohol type: beer and wine Patient Tobacco Use Status: Current everyday Tobacco user Tobacco use type: Cigarette Cigarette Packs Per Day: 0.5 Cigarettes Per Day: 10.0 Years Smoked: 50 e-Cigarette/Vaping Use: Never Used Second Hand Smoke Exposure: No Advance Directives: Yes Advance Directives on File: Yes Advance Directives Date on File: 02/03/22 service: No Current occupational status: retired Cognitive needs: No Hearing needs: No Vision needs: No Physical Exam ED Vital Signs: Vital Signs - 24 hr 03/04/23 13:39 Temperature 98.1 F Pulse Rate 70 Respiratory Rate 18 Blood Pressure 153/62 H Pulse Oximetry 98 Oxygen Delivery Method Room Air BMI result Body Mass Index 30.0 Const Other: Appearance: Alert. Oriented X3. No acute distress. Eyes: Pupils equal, round and reactive to light. ENT: Pharynx normal. Neck: Normal inspection. Neck supple. No lymph nodes noted. No crepitus CVS: Normal heart rate and rhythm. Pulses normal. Normal S1 and S2 Respiratory: No respiratory distress. Breath sounds normal. No Wheezing. No rales Abdomen: Soft and nontender. No rigidity. No distention. Skin: Skin warm and dry. See extremity below Extremities: +4 pitting edema on the foot on the right, skin intact, left lower extremity has erythema, mild edema and weeping, see picture below Neuro: Oriented X 3. No motor deficit. No sensory deficit. Moving all extremities. No slurred speech. CN 2 through 12 grossly intact Psych: calm, cooperative, normal affect Course Course Course Narrative: -all the patient's labs pending -patient clearly has cellulitis, sepsis not suspected. Patient started on IV fluids, Zosyn and vanco Medications Administered Discontinued Medications Generic Name Dose Route Start Last Admin Trade Name Freq PRN Reason Stop Dose Admin Piperacillin Sod/Tazobactam 50 mls @ 100 mls/hr 03/04/23 13:58 03/04/23 15:00 Sod 3.375 gm/ Sodium Chloride IV 03/04/23 14:27 100 mls/hr ONCE ONE Administration Sodium Chloride 1,000 mls @ 999 mls/hr 03/04/23 14:01 03/04/23 15:02 Ns IVCONT 03/04/23 15:01 999 mls/hr .Q1H1M ONE Administration Medical Decision Making Medical Decision Making MDM Narrative: -patient's white blood cell count within normal limits, lactic acid normal. Sepsis not suspected -patient was giving IV fluids, vancomycin and Zosyn. -discussed the patient with Dr. Chin Differential Diagnosis Differential Diagnoses: The differential diagnosis associated with the presentation includes (Cellulitis, chronic venous stasis, erysipelas) Admission/Observation Consideration of admission/observation: Escalation of care including admission/observation considered Consult Healthcare Provider Management of the patient was discussed with: Hospitalist Lab Data MDM Lab Attestation statement: I reviewed the patient's lab results. 03/04/23 14:14 03/04/23 14:14 Labs: Lab Results 03/04/23 Range/Units 14:14 WBC 9.0 (4.8-10.8) X10*3/uL RBC 5.00 (4.60-5.80) X10*6/uL Hgb 15.6 (14.0-18.0) g/dl Hct 48.4 (42.0-52.0) % MCV 96.8 (80.0-98.0) fL MCH 31.2 (27.0-33.0) pg MCHC 32.2 (31.0-36.0) g/dl RDW 12.9 (11.0-16.0) % Plt Count 250 (160-400) X10*3/uL MPV 9.4 (9.4-12.4) fL Immature Gran % (Auto) 0.3 (0.0-0.4) % Neut % (Auto) 66.3 (45-73) % Lymph % (Auto) 25.2 (20-40) % Wallace % (Auto) 7.2 (2-11) % Eos % (Auto) 0.7 (0-4) % Baso % (Auto) 0.3 (0-2) % Lymph # (Auto) 2.3 (1.2-4.9) X10*3/uL Wallace # (Auto) 0.7 (0.1-1.2) X10*3/uL Eos # (Auto) 0.1 (0.0-0.4) X10*3/uL Baso # (Auto) 0.0 (0.0-0.2) X10*3/uL Abs Immat Gran (auto) 0.03 (0.00-0.03) X10*3/uL Absolute Neuts (auto) 6.0 (2.0-8.3) x10*3/uL Absolute Nucleated RBC 0.000 (0.0-0.012) X10*3/uL Nucleated RBC % (auto) 0.0 (0.0-0.2) /100WBC Sodium 139 (135-145) mmol/L Potassium 4.3 (3.3-5.1) mmol/L Chloride 104 (96-108) mmol/L Carbon Dioxide 26 (22-29) mmol/L Anion Gap 13 (12-20) BUN 12 (9-16) mg/dL Creatinine 0.77 (0.5-1.4) mg/dL Estim Creat Clear Calc 95.4 Estimated GFR > 60 Random Glucose 74 (60-115) mg/dL Lactic Acid 1.8 (0.5-2.0) mmol/L Calcium 9.4 (8.4-10.2) mg/dL Total Bilirubin 0.5 (0.0-1.0) mg/dL Direct Bilirubin 0.2 (0.0-0.5) mg/dL AST 14 (5-37) U/L ALT 10 (0-40) U/L Alkaline Phosphatase 86 (39-117) U/L Total Protein 7.0 (6.5-8.0) g/dL Albumin 3.6 (3.5-5.0) g/dL Critical Care Time Critical Care Time Critical Care Time: Yes Total Critical Care Time: 60 Attestation: I have personally provided critical care time. Time includes review of lab data, radiology results, discussion with consultants, and monitoring for potential decompensation. Intervention performed as documented. Discharge Plan Discharge Clinical Impression: Cellulitis Patient Disposition: Admitted As Inpatient Prescriptions: No Action (DME) CUSHION SKIN PROTECTION LESS THAN 22 -- E2503 See Rx Instructions .Route .MEDSUPPLY Qty: 1 0RF Rx Instructions: As directed (DME) ELECTRIC WHEELCHAIR See Rx Instructions .Route .MEDSUPPLY Qty: 1 0RF Rx Instructions: for lifetime use (DME) ADJUSTABLE HEIGHT ARM ASSEMBLY -- E0973 See Rx Instructions .Route .MEDSUPPLY Qty: 2 0RF Rx Instructions: As directed (DME) HEEL LOOPS -- E0951 See Rx Instructions .Route .MEDSUPPLY Qty: 2 0RF Rx Instructions: As directed (DME) BATTERY -- E2365 See Rx Instructions .Route .MEDSUPPLY Qty: 1 0RF Rx Instructions: As directed cholecalciferol (vitamin D3) 50 mcg (2,000 unit) capsule 50 mcg PO DAILY 90 Days Qty: 90 3RF pravastatin 40 mg tablet 40 mg PO BEDTIME Qty: 90 1RF gabapentin 300 mg capsule 300 mg PO TID PRN (Reason: Pain) 30 Days Qty: 90 3RF metformin 500 mg tablet 500 mg PO BID 90 Days Qty: 180 1RF glipizide 10 mg tablet 10 mg PO BID 90 Days Qty: 180 1RF albuterol sulfate 90 mcg/actuation Hfa Aerosol Inhaler 2 puff INHALATION Q6H PRN (Reason: Respiratory Distress) ipratropium-albuterol 0.5 mg-3 mg(2.5 mg base)/3 mL solution for nebulization 3 ml inhalation Q6H PRN (Reason: wheezing) 30 Days Qty: 360 3RF aspirin 81 mg tablet,delayed release (DR/EC) 81 mg PO DAILY Qty: 30 0RF
[2023-03-04 14:19] LABS: MANUAL DIFF FLAG NO
[2023-03-04 14:20] LABS: Basophils Percent Auto 0.3 % (0-2); Eosinophils Absolute Auto 0.1 X10*3/uL (0.0-0.4); Eosinophils Percent Auto 0.7 % (0-4); Hematocrit 48.4 % (42.0-52.0); Hemoglobin 15.6 g/dl (14.0-18.0); Imm Gran Abs Auto 0.03 X10*3/uL (0.00-0.03); Imm Gran Pct Auto 0.3 % (0.0-0.4); Lymphocytes Absolute Auto 2.3 X10*3/uL (1.2-4.9); Lymphocytes Percent Auto 25.2 % (20-40); Mean Corpuscular HGB Conc 32.2 g/dl (31.0-36.0); Mean Corpuscular Hemoglobin 31.2 pg (27.0-33.0); Mean Corpuscular Volume 96.8 fL (80.0-98.0); Mean Platelet Volume 9.4 fL (9.4-12.4); Monocytes Absolute Auto 0.7 X10*3/uL (0.1-1.2); Monocytes Percent Auto 7.2 % (2-11); Neutrophils Percent Auto 66.3 % (45-73); Platelet Count 250 X10*3/uL (160-400); Red Cell Distribution Width 12.9 % (11.0-16.0)
[2023-03-04 14:32] LABS: Lactic Acid 1.8 mmol/L (0.5-2.0)
[2023-03-04 14:46] LABS: Alanine Aminotransferase 10 U/L (0-40); Albumin Level 3.6 g/dL (3.5-5.0); Alkaline Phosphatase 86 U/L (39-117); Anion Gap 13 (12-20); Aspartate Amino Transferase 14 U/L (5-37); Bilirubin Direct 0.2 mg/dL (0.0-0.5); Blood Urea Nitrogen 12 mg/dL (9-16); Calcium 9.4 mg/dL (8.4-10.2); Carbon Dioxide 26 mmol/L (22-29); Chloride 104 mmol/L (96-108); Creatinine Clr Calc Pharmacy 95.4; Estimated Glomerular Filt Rate > 60; Glucose Random 74 mg/dL (60-115); Potassium 4.3 mmol/L (3.3-5.1); Sodium 139 mmol/L (135-145)
[2023-03-04 14:51] LABS: Bilirubin Total 0.5 mg/dL (0.0-1.0)
[2023-03-04] MEDS: Piperacillin Sodium/Tazobactam 3.375 GM in 0.9 % Sodium Chloride 50 ML IV (15:00)
[2023-03-04] MEDS: 0.9 % Sodium Chloride 1,000 ML 999 ML IVCONT (15:02)
[2023-03-04] MEDS: vancomycin/NS 2,000 MG/500 ML PLAST..BAG 250 MG IV (15:38)
--- NOTE | 2023-03-04 15:39 | P.HPHOSP_ITS ---
History of Present Illness Date of Service: 03/04/23 Chief Complaint: leg pain 78-year-old man presenting to the ER with complaints of redness and swelling with weeping to his left lower extremity. He does have visiting nurse and was last seen approximately 3 days ago. He was also being seen by the wound center. He reports that she came over and undressed his left lower extremity and was concerned that it was swollen red and raw. EMS was called for transport to [facility]. He denied any fever, chills, nausea, vomiting, diarrhea. He was admitted in November of 2022 for the same. At that time he had venous Doppler ultrasound which was negative for DVT. In the ER, he was given a dose of vancomycin, Zosyn, 1 L of IV fluid. His vital signs have been stable, labs within acceptable limits. He will be admitted for further management and treatment of acute cellulitis. Review of Systems 2 Review of Systems: Denies any recent fever chills or decrease in appetite respiratory denies any shortness of breath coverage production cardiovascular Denied chest pain gastrointestinal denies any dysphagia abdominal pain nausea vomiting or diarrhea genitourinary denies any dysuria frequency or hematuria musculoskeletal denies any joint pain or swelling neuropsych denies any weakness or seizures all other systems reviewed are negative Right lower erythema and edema, denies pain PMFSH Medical History (Updated 03/04/23 @ 15:41 by Antonella Figueroa NP) Stasis ulcer of right lower extremity Obesity (BMI 30-39.9) Depression Psoriasis Primary osteoarthritis of both knees Vitamin D deficiency Coronary artery disease Benign essential hypertension Type 2 diabetes mellitus with diabetic neuropathy, unspecified COPD (chronic obstructive pulmonary disease) FADY (obstructive sleep apnea) Neuropathy Pulmonary hypertension HLD (hyperlipidemia) Family History Father Medical history unknown Mother Cancer Surgical History No pertinent past surgical history Social History Household Members: None Housing: Apartment Do you presently have visiting nurse or other home services: Yes Alcohol intake: current Alcohol intake frequency: holidays/special occasions only Alcohol type: beer and wine Patient Tobacco Use Status: Current everyday Tobacco user Tobacco use type: Cigarette Cigarette Packs Per Day: 0.5 Cigarettes Per Day: 10.0 Years Smoked: 50 e-Cigarette/Vaping Use: Never Used Second Hand Smoke Exposure: No Advance Directives: Yes Advance Directives on File: Yes Advance Directives Date on File: 02/03/22 Nutrition Risks: No Nutritional Risk service: No Current occupational status: retired Cognitive needs: No Hearing needs: No Vision needs: No Meds Allergies Allergy/AdvReac Type Severity Reaction Status Date / Time Fish Containing Products Allergy Severe ANAPHYLAXIS Verified 12/27/22 13:23 shellfish derived Allergy Severe ANAPHYLAXIS Verified 12/27/22 13:23 Active Medications: Current Medications Vancomycin HCl (Vancomycin/Ns) 2,000 mg in 500 mls @ 250 mls/hr IV ONCE ONE Stop: 03/04/23 15:57 Last Admin: 03/04/23 15:38 Dose: 250 mls/hr Home Medications Medication Instructions Recorded Confirmed Last Taken Type albuterol sulfate 90 mcg/actuation 2 puff inhalation Q6H PRN 04/28/22 03/04/23 Unknown History aerosol inhaler Respiratory Distress Physical Exam 2 Vital Signs and Narrative: Vital Signs: Last Vital Signs Temp 98.1 F 03/04/23 13:39 Pulse 70 03/04/23 13:39 Resp 18 03/04/23 13:39 BP 153/62 H 03/04/23 13:39 Pulse Ox 98 03/04/23 13:39 O2 Del Method Room Air 03/04/23 13:39 BMI result Body Mass Index 30.0 Appearing in no acute distress head is normocephalic atraumatic eyes pupils are PERRLA sclera is anicteric mouth throat mucous membranes are intact and moist neck is supple no lymphadenopathy, no JVD noted lung sounds are clear to auscultation heart regular rate rhythm, clear S1, S2 positive bowel sounds, abdomen is soft, nontender neuro patient is alert x3, no focal deficits Results Labs 03/05/23 05:17 03/05/23 05:17 Labs: Laboratory Results - last 24 hr 03/04/23 14:14 MCV 96.8 MCH 31.2 MCHC 32.2 RDW 12.9 Plt Count 250 MPV 9.4 Immature Gran % (Auto) 0.3 Neut % (Auto) 66.3 Lymph % (Auto) 25.2 Cameron % (Auto) 7.2 Eos % (Auto) 0.7 Baso % (Auto) 0.3 Lymph # (Auto) 2.3 Cameron # (Auto) 0.7 Eos # (Auto) 0.1 Baso # (Auto) 0.0 Abs Immat Gran (auto) 0.03 Absolute Neuts (auto) 6.0 Absolute Nucleated RBC 0.000 Nucleated RBC % (auto) 0.0 Anion Gap 13 Estim Creat Clear Calc 95.4 Estimated GFR > 60 Random Glucose 74 Lactic Acid 1.8 Calcium 9.4 Total Bilirubin 0.5 Direct Bilirubin 0.2 AST 14 ALT 10 Alkaline Phosphatase 86 Total Protein 7.0 Albumin 3.6 Assessment and Plan (1) Cellulitis: Status: Acute Plan 78 year old man admitted with cellulitis to to left lower extremity with also some component of venous stasis Acute on chronic Cellulitis Erythema and edema noted with weeping Wound Care consult ID consult Continue vancomycin Elevate extremity venous doppler pending Diabetes mellitus type 2 Sliding scale, ADA diet Peripheral neuropathy Continue gabapentin COPD No exacerbation Albuterol as needed History of coronary artery disease Continue aspirin and statin Obesity. BMI 30.0 Discussed importance of weight management as this may be contributing to worsening of other comorbidities DVT prophylaxis with Lovenox Full code Patient requires 2 inpatient midnights for treatment of cellulitis Time Spent With Patient Time: Total time managing care of this patient today ____ minutes. Quality Stroke Does the patient have a stroke diagnosis?: No VTE Prior VTE?: No VTE Risk Level:: Medical - moderate - high VTE Device Contraindication: Treatment Not Indicated VTE Drug Contraindication: N/A - Med Ordered
[2023-03-04 15:59] VITALS: BP 155/45; PULSE 73; RESP 16; O2SAT 100
--- NOTE | 2023-03-04 16:13 | PHA.MEDREC ---
Pharmacy Consult ? Medication Reconciliation Pharmacy has completed the medication reconciliation. Patient confirmed medications. Tracy De Leon, GinD
--- NOTE | 2023-03-04 16:44 | PHA.PROG ---
Admission Date/Time: March 04, 2023 16:03 Indication: Cellulitis Weight in k.4 kg Adjusted body weight in K.7 kg Arabi body weight in K.6 kg Obesity Dosing Indication % IBW: 129% Serum Creatinine - Last 168 Hours 03/04/23 14:14 Creatinine 0.77 Estimated CrCl and GFR - Last 168 Hours 03/04/23 14:14 Estim Creat Clear Calc 95.4 Estimated GFR > 60 Vancomycin Loading Dose: 2000 mg Current Vancomycin Dosing Regimen: 1000 mg Q12H Date and Time for next Vancomycin Level to be drawn: 03/05 @ 1300 Pharmacist Comments on Vancomycin Plan: Patient recieved an adeqaute load dose in the ER on 03/04 @ 1538 Maintenance dose vancomycin 1000 mg Q12H is scheduled to start 03/05 @ 0300. Expected AUC 469 with a trough of 15 Level will be drawn prior to 3rd dose to access for safety Pharmacy will monitor renal function daily Tracy De Leon PharmD Vancomycin dosing will take advantage of [employer] as a clinical decision support tool that uses Bayesian modeling to calculate individual patient's pharmacokinetic parameters and forecast the patient's drug concentration time course with the target goal AUC 24 range of 400 - 600 mg/L/hr.
[2023-03-04 17:38] VITALS: BP 140/59; PULSE 69; RESP 18; TEMP 35.9; O2SAT 99
[2023-03-04] MEDS: Enoxaparin Sodium 40 MG/0.4 ML SYRINGE SUBCUT (17:43)
[2023-03-04 17:50] LABS: Glucose, Whole Blood 61 mg/dL (60-115)
[2023-03-04 18:53] LABS: Amphetamine Screen Urine Not Detected (Not Detect); Barbiturates, Urine Not Detected (Not Detect); Benzodiazepines Screen Urine Not Detected (Not Detect); Cannabinoid Screen Urine Not Detected (Not Detect); Cocaine Screen Urine Not Detected (Not Detect); Fentanyl, urine Not Detected (Not Detect); Opiate Screen Urine Not Detected (Not Detect); Phencyclidine Screen Urine Not Detected (Not Detect)
[2023-03-04 20:47] VITALS: BP 153/58; PULSE 78; RESP 18; TEMP 36.3; O2SAT 97
[2023-03-04 21:05] LABS: Glucose, Whole Blood 99 mg/dL (60-115)
--- NOTE | 2023-03-04 21:07 | MHC.EDTECH ---
Patient bed pad and jose changed and patient repositioned
[2023-03-04] MEDS: oxyCODONE HCl Immed Release 5 MG TABLET PO (21:39)
[2023-03-04] MEDS: Pravastatin Sodium 40 MG TABLET PO (21:40)
--- NOTE | 2023-03-04 22:40 | PC.NURSE ---
This RN assumed care at 1915. Patient is calm and pleasant, medicated per MAR, vital signs stable, POC did not require any insulin to be given, plan of care ongoing.
[2023-03-05] MEDS: vancomycin HCL 1,000 MG in 0.9 % Sodium Chloride 250 ML 270 MG IV (02:30)
[2023-03-05 05:48] LABS: Hematocrit 44.1 % (42.0-52.0); Hemoglobin 14.2 g/dl (14.0-18.0); Mean Corpuscular HGB Conc 32.2 g/dl (31.0-36.0); Mean Corpuscular Hemoglobin 31.1 pg (27.0-33.0); Mean Corpuscular Volume 96.5 fL (80.0-98.0); Mean Platelet Volume 9.8 fL (9.4-12.4); Platelet Count 231 X10*3/uL (160-400); Red Blood Count 4.57 X10*6/uL (4.60-5.80); Red Cell Distribution Width 12.9 % (11.0-16.0); White Blood Count 8.3 X10*3/uL (4.8-10.8)
[2023-03-05 06:03] LABS: Anion Gap 16 (12-20); Blood Urea Nitrogen 7 mg/dL (9-16); Calcium 8.7 mg/dL (8.4-10.2); Carbon Dioxide 22 mmol/L (22-29); Chloride 104 mmol/L (96-108); Estimated Glomerular Filt Rate > 60; Glucose Random 113 mg/dL (60-115); Potassium 3.8 mmol/L (3.3-5.1); Sodium 138 mmol/L (135-145)
[2023-03-05 06:31] VITALS: BP 148/69; PULSE 74; RESP 18; TEMP 36.6; O2SAT 96
[2023-03-05 07:35] LABS: Glucose, Whole Blood 137 mg/dL (60-115)
[2023-03-05] MEDS: Aspirin Enteric Coated 81 MG TABLET.DR PO (08:31)
[2023-03-05] MEDS: Cholecalciferol (Vitamin D3) 25 MCG TABLET 50 MCG PO (08:31)
--- NOTE | 2023-03-05 10:29 | MHC.CM.PN ---
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
--- NOTE | 2023-03-05 10:36 | HO.PM.IMPN ---
Subjective Subjective Date of Service: 03/05/23 Interval History: Follow up Left foot and leg cellulitis no pain or discomfort Review of Systems Denies any chest pain or shortness of breath, leg cellulitis area is minimally improving Physical Exam Vital Signs: Vital Signs: Last Vital Signs Temp 97.9 F 03/05/23 06:31 Pulse 74 03/05/23 06:31 Resp 18 03/05/23 06:31 BP 148/69 H 03/05/23 06:31 Pulse Ox 96 03/05/23 06:31 O2 Del Method Room Air 03/05/23 06:31 BMI result Body Mass Index 30.0 Appearing in no acute distress lung sounds are clear to auscultation heart regular rate rhythm, clear S1, S2 positive bowel sounds, abdomen is soft, nontender neuro patient is alert x3, no focal deficits Objective Data Active Medications Acetaminophen (Acetaminophen 325 Mg Tablet) 650 mg PO Q6H PRN PRN Reason: Pain, Mild (Pain Scale 1-3) Albuterol Sulfate (Albuterol Sulfate 90 Mcg 8 Gm Inhaler) 2 puff INHALE Q6H PRN PRN Reason: Respiratory Distress Albuterol/Ipratropium (Albuterol/Iprat 2.5/0.5mg 3 Ml Ampul.Neb) 3 ml INHALE Q6H PRN PRN Reason: wheezing Aspirin (Aspirin Enteric Coated 81 Mg Tablet.) 81 mg PO DAILY [facility] Last Admin: 03/05/23 08:31 Dose: 81 mg Documented By: RUFUS Dextrose (Dextrose 50 % 25 Gm/50 Ml Syringe) 25 gm IVPUSH Q15M PRN; Protocol PRN Reason: per Hypoglycemia Standing Ord. Enoxaparin Sodium (Enoxaparin Sodium 40 Mg/0.4 Ml Syringe) 40 mg SUBCUT Q24H [facility] Last Admin: 03/04/23 17:43 Dose: 40 mg Documented By: REYNALDO Glucose (Glucose Gel 15 Gm Gel..Gram.) 15 gm PO Q15M PRN; Protocol PRN Reason: per Hypoglycemia Standing Ord. Vancomycin HCl 1,000 mg/ (Sodium Chloride) 270 mls @ 270 mls/hr IV Q12H [facility] Last Admin: 03/05/23 02:30 Dose: 270 mls/hr Documented By: CHARLENE Insulin Human Lispro (Insulin Lispro 100 Unit/Ml 3 Ml Vial) 0 unit SUBCUT QIDACHS [facility]; Protocol Last Admin: 03/05/23 10:32 Dose: Not Given Documented By: RUFUS Non-Admin Reason: No Insulin Coverage Ondansetron HCl (Ondansetron Hcl 4 Mg/2 Ml Vial) 4 mg IVPUSH Q8H PRN PRN Reason: Nausea and Vomiting Oxycodone HCl (Oxycodone Hcl Immed Release 5 Mg Tablet) 5 mg PO Q6H PRN PRN Reason: Pain, Moderate(Pain Scale 4-6) Last Admin: 03/04/23 21:39 Dose: 5 mg Documented By: NARINDER Pharmacy Consult (Consult Rx Vancomycin Dosing) 1 each MISCELLANE DAILY PRN PRN Reason: Consult order Pravastatin Sodium (Pravastatin Sodium 40 Mg Tablet) 40 mg PO BEDTIME [facility] Last Admin: 03/04/23 21:40 Dose: 40 mg Documented By: NARINDER Sodium Chloride (0.9 % Sodium Chloride Flush 3 Ml Syringe) 3 ml IVFLUSH QSHIFT [facility] Last Admin: 03/05/23 10:33 Dose: Not Given Documented By: RUFUS Non-Admin Reason: IV Running Vitamin D (Cholecalciferol (Vitamin D3) 25 Mcg Tablet) 50 mcg PO DAILY [facility] Last Admin: 03/05/23 08:31 Dose: 50 mcg Documented By: RUFUS Labs 03/05/23 05:17 03/05/23 05:17 Labs: Laboratory Results - last 24 hr 03/04/23 03/04/23 03/04/23 14:14 15:47 17:41 MCV 96.8 MCH 31.2 MCHC 32.2 RDW 12.9 Plt Count 250 MPV 9.4 Immature Gran % (Auto) 0.3 Neut % (Auto) 66.3 Lymph % (Auto) 25.2 [place] % (Auto) 7.2 Eos % (Auto) 0.7 Baso % (Auto) 0.3 Lymph # (Auto) 2.3 [place] # (Auto) 0.7 Eos # (Auto) 0.1 Baso # (Auto) 0.0 Abs Immat Gran (auto) 0.03 Absolute Neuts (auto) 6.0 Absolute Nucleated RBC 0.000 Nucleated RBC % (auto) 0.0 Anion Gap 13 Estim Creat Clear Calc 95.4 Estimated GFR > 60 POC Glucose 61 Random Glucose 74 Lactic Acid 1.8 Calcium 9.4 Total Bilirubin 0.5 Direct Bilirubin 0.2 AST 14 ALT 10 Alkaline Phosphatase 86 Total Protein 7.0 Albumin 3.6 Urine Opiates Screen Not Detected Urine Fentanyl Screen Not Detected Ur Barbiturates Screen Not Detected Ur Phencyclidine Scrn Not Detected Ur Amphetamines Screen Not Detected U Benzodiazepines Scrn Not Detected Urine Cocaine Screen Not Detected U Marijuana (THC) Screen Not Detected 03/04/23 03/05/23 03/05/23 21:00 05:17 07:25 MCV 96.5 MCH 31.1 MCHC 32.2 RDW 12.9 Plt Count 231 MPV 9.8 Immature Gran % (Auto) Neut % (Auto) Lymph % (Auto) [place] % (Auto) Eos % (Auto) Baso % (Auto) Lymph # (Auto) [place] # (Auto) Eos # (Auto) Baso # (Auto) Abs Immat Gran (auto) Absolute Neuts (auto) Absolute Nucleated RBC 0.000 Nucleated RBC % (auto) 0.0 Anion Gap 16 Estim Creat Clear Calc 102.0 Estimated GFR > 60 POC Glucose 99 137 H Random Glucose 113 Lactic Acid Calcium 8.7 D Total Bilirubin Direct Bilirubin AST ALT Alkaline Phosphatase Total Protein Albumin Urine Opiates Screen Urine Fentanyl Screen Ur Barbiturates Screen Ur Phencyclidine Scrn Ur Amphetamines Screen U Benzodiazepines Scrn Urine Cocaine Screen U Marijuana (THC) Screen Assessment and Plan (1) Cellulitis: Status: Acute Assessment and Plan: 78 year old man admitted with cellulitis to to left lower extremity with also some component of venous stasis Acute on chronic Cellulitis Erythema and edema noted with weeping Wound Care consult pending ID consult pending Continue vancomycin Elevate extremity venous doppler us neg for dvt Diabetes mellitus type 2 Sliding scale, ADA diet Peripheral neuropathy Continue gabapentin COPD No exacerbation Albuterol as needed History of coronary artery disease Continue aspirin and statin Obesity. BMI 31.8 Discussed importance of weight management as this may be contributing to worsening of other comorbidities DVT prophylaxis with Lovenox Attending Dr. Hong Full code Patient requires continued hospitalization due to for treatment of cellulitis Time Spent With Patient Time: Total time managing care of this patient today ____ minutes. Quality Stroke Does the patient have a stroke diagnosis?: No VTE Prior VTE?: No VTE Risk Level:: Medical - moderate - high VTE Device Contraindication: Treatment Not Indicated VTE Drug Contraindication: N/A - Med Ordered
[2023-03-05 11:24] VITALS: BP 130/61; PULSE 77; RESP 18; TEMP 36.5; O2SAT 92
[2023-03-05 11:45] LABS: Glucose, Whole Blood 148 mg/dL (60-115)
[2023-03-05 11:51] VITALS: BMI 31.8
[2023-03-05] MEDS: oxyCODONE HCl Immed Release 5 MG TABLET PO ×2 (12:27→19:59)
--- NOTE | 2023-03-05 13:24 | P.CDIM_ITS ---
PROVIDER RESPONSE TEXT: To clarify, the appropriate diagnosis supported by the clinical indicators: No, cellulitis is not related to / associated with / due to diabetes mellitus type 2 QUERY TEXT: PHYSICIAN'S DOCUMENTATION REQUEST Date of Query: 03/05/2023 11:30 AM EDT Patient Name: Juvenal Luz Admit Date: 03/04/2023 Dear Antonella Figueroa, A review of the medical record indicates additional documentation may be needed. Please review below and update the documentation accordingly. Clinical Indicators: Diabetes mellitus Type 2 Patient admitted with cellulitis of left lower extremity with also some component of venous stasis. Acute on chronic cellulitis Erythema and edema noted with weeping. redness and swelling Diabetes mellitus type 2 with peripheral neuropathy (diabetes) Continue vancomycin, insulin, sliding scale, ADA diet. Please clarify the relationship between these conditions: Cellulitis and the diabetes Yes, cellulitis is related to / associated with / due to diabetes mellitus type 2 No, cellulitis is not related to / associated with / due to diabetes mellitus type 2 Other (explain)Clinically unable to determine (explain)Thank you, Yesenia West, CCS, CDIS Use of terms such as suspected, likely, concern for, or probable (associated with a specific diagnosi s that is being evaluated, monitored, or treated as if it exists) are acceptable and can be coded in the inpatient se tting, when documented at the time of discharge. Please use your independent medical judgment in providing your response. THIS QUERY IS PART OF THE PERMANENT MEDICAL RECORD
[2023-03-05 13:57] LABS: Vancomycin Random 10.7 mcg/mL (15-20)
--- NOTE | 2023-03-05 14:03 | HE.PHANOTE ---
RE VANCO TROUGH WAS 10.9 BUT ONLY AFTER 2 DOSES. WILL INCREASE TO 1250 Q12, SUSPECTED AUC 509, TROUGH 16.4 SADIA
[2023-03-05] MEDS: 0.9 % Sodium Chloride Flush 3 ML SYRINGE IVFLUSH ×2 (14:39→20:56)
[2023-03-05] MEDS: vancomycin HCL 1,250 MG in 0.9 % Sodium Chloride 250 ML 166.67 MG IV (14:40)
--- NOTE | 2023-03-05 14:43 | HO.WOUND ---
Wound Care Consult Reason for consult: LLE cellulitis Patient in bed at the time of consult. He is an active patient at [facility], last seen on 03/05 and has a scheduled appointment to be seen on 03/12. Patient was being seen for the venous wounds on his left lower extremity. Patient is now admitted for cellulitis of the left lower extremity. Irene wrap removed from the leg. No drainage on the dressing. Although the skin is very dry, taught and still having some erythema to the more anterior portion of the leg, there is no open areas at this time. Edema also seems to be better now that his legs have been elevated. Patient has palpable pulses. The leg was thoroughly washed and a light layer of zinc cream was applied to the skin. Legs were elevated on pillows. Recommendation: No open areas at this time. Left leg will just need routine skin care and moisturizing. If skin is still erythematous, may apply a thin layer of the zinc cream daily. Be careful not to apply thick layers of the zinc. Keep legs elevated to help with the edema and if ok will hospitalists, may apply cabrera wraps from the top of the toes to just below the knee for additional help with the swelling.
[2023-03-05 15:15] VITALS: BP 130/59; PULSE 68; RESP 20; TEMP 37.1; O2SAT 96
--- NOTE | 2023-03-05 15:55 | P.CNID_ITS ---
History of Present Illness Data of Consult Service Date: 03/05/23 Requesting physician: Antonella Figueroa Primary Care Provider: Billy Longoria MD HPI Reason for consult: left leg cellulitis He has redness leg over last three days. VNA said leg was worse. He has no fever or chills. Review of Systems 2 Review of Systems: Yes all other systems are reviewed and are negative Musculoskeletal: Comments: leg weeping PMFSH Past Medical History Medical History Stasis ulcer of right lower extremity Obesity (BMI 30-39.9) Depression Psoriasis Primary osteoarthritis of both knees Vitamin D deficiency Coronary artery disease Benign essential hypertension Type 2 diabetes mellitus with diabetic neuropathy, unspecified COPD (chronic obstructive pulmonary disease) FADY (obstructive sleep apnea) Neuropathy Pulmonary hypertension HLD (hyperlipidemia) Family History Family History Father Medical history unknown Mother Cancer Surgical History Surgical History No pertinent past surgical history Social History Social History Household Members: None Housing: Apartment Do you presently have visiting nurse or other home services: Yes Alcohol intake: current Alcohol intake frequency: holidays/special occasions only Alcohol type: beer and wine Patient Tobacco Use Status: Current everyday Tobacco user Tobacco use type: Cigarette Cigarette Packs Per Day: 0.5 Cigarettes Per Day: 5 Years Smoked: 50 Smoked in Last 30 Days: Yes e-Cigarette/Vaping Use: Never Used Patient Interested in Nicotine Replacement: No Second Hand Smoke Exposure: No Use of substances other than those prescribed or required for medical reasons: No Do you feel safe in your current relationship?: No Current Relationship Advance Directives: Yes Advance Directives on File: Yes Advance Directives Date on File: 02/03/22 Do you have thoughts of harming others: None Do you have a plan to hurt others: No Plan Nutrition Risks: No Nutritional Risk Poor oral hygiene: No (Upper Dentures.) service: No Current occupational status: retired Cognitive needs: No Hearing needs: No Vision needs: No Meds Allergies Allergy/AdvReac Type Severity Reaction Status Date / Time Fish Containing Products Allergy Severe ANAPHYLAXIS Verified 12/27/22 13:23 shellfish derived Allergy Severe ANAPHYLAXIS Verified 12/27/22 13:23 Active Medications: Current Medications Acetaminophen (Acetaminophen 325 Mg Tablet) 650 mg PO Q6H PRN PRN Reason: Pain, Mild (Pain Scale 1-3) Albuterol Sulfate (Albuterol Sulfate 90 Mcg 8 Gm Inhaler) 2 puff INHALE Q6H PRN PRN Reason: Respiratory Distress Albuterol/Ipratropium (Albuterol/Iprat 2.5/0.5mg 3 Ml Ampul.Neb) 3 ml INHALE Q6H PRN PRN Reason: wheezing Aspirin (Aspirin Enteric Coated 81 Mg Tablet.Dr) 81 mg PO DAILY [facility] Last Admin: 03/05/23 08:31 Dose: 81 mg Dextrose (Dextrose 50 % 25 Gm/50 Ml Syringe) 25 gm IVPUSH Q15M PRN; Protocol PRN Reason: per Hypoglycemia Standing Ord. Enoxaparin Sodium (Enoxaparin Sodium 40 Mg/0.4 Ml Syringe) 40 mg SUBCUT Q24H [facility] Last Admin: 03/04/23 17:43 Dose: 40 mg Glucose (Glucose Gel 15 Gm Gel..Gram.) 15 gm PO Q15M PRN; Protocol PRN Reason: per Hypoglycemia Standing Ord. Vancomycin HCl 1,250 mg/ (Sodium Chloride) 250 mls @ 166.667 mls/hr IV Q12H [facility] Last Admin: 03/05/23 14:40 Dose: 166.67 mls/hr Insulin Human Lispro (Insulin Lispro 100 Unit/Ml 3 Ml Vial) 0 unit SUBCUT QIDACHS [facility]; Protocol Last Admin: 03/05/23 11:49 Dose: Not Given Ondansetron HCl (Ondansetron Hcl 4 Mg/2 Ml Vial) 4 mg IVPUSH Q8H PRN PRN Reason: Nausea and Vomiting Oxycodone HCl (Oxycodone Hcl Immed Release 5 Mg Tablet) 5 mg PO Q6H PRN PRN Reason: Pain, Moderate(Pain Scale 4-6) Last Admin: 03/05/23 12:27 Dose: 5 mg Pharmacy Consult (Consult Rx Vancomycin Dosing) 1 each MISCELLANE DAILY PRN PRN Reason: Consult order Pravastatin Sodium (Pravastatin Sodium 40 Mg Tablet) 40 mg PO BEDTIME [facility] Last Admin: 03/04/23 21:40 Dose: 40 mg Sodium Chloride (0.9 % Sodium Chloride Flush 3 Ml Syringe) 3 ml IVFLUSH QSHIFT [facility] Last Admin: 03/05/23 14:39 Dose: 3 ml Vitamin D (Cholecalciferol (Vitamin D3) 25 Mcg Tablet) 50 mcg PO DAILY [facility] Last Admin: 03/05/23 08:31 Dose: 50 mcg Home Medications Medication Instructions Recorded Confirmed Last Taken Type albuterol sulfate 90 mcg/actuation 2 puff inhalation Q6H PRN 04/28/22 03/04/23 Unknown History aerosol inhaler Respiratory Distress Physical Exam 2 Vital Signs: Vital Signs: Last Vital Signs Temp 98.7 F 03/05/23 15:15 Pulse 68 03/05/23 15:15 Resp 20 03/05/23 15:15 BP 130/59 L 03/05/23 15:15 Pulse Ox 96 03/05/23 15:15 O2 Del Method Room Air 03/05/23 15:15 BMI result Body Mass Index 31.8 Const: General: cooperative HEENT: Head: Yes normal to inspection Face and sinus: Yes normal facial exam Mouth: Normal oral and palatal mucosa present Teeth and gingiva: d entition normal Eyes: General: appearance normal, both eyes and all related structures P upils: Equal, round and reactive pupils present Resp: Effort & Inspection: normal respiratory effort Cardio: Rate: regular rate Rhythm: regular rhythm GI: Palpation (GI): Soft to palpation and nontender : General: Yes no CVA tenderness Back/Spine/Pelvis: Back: no CVA tenderness Skin: General skin exam: no rashes or lesions noted Neuro: General: moves all extremities Cranial nerves: Yes Equal, round and reactive pupils present Extrem: Other: left leg red and weepy General: Yes normal to inspection Psych: Appearance: grossly normal Results Labs 03/05/23 05:17 03/05/23 05:17 Labs: Short CBC 03/05/23 Range/Units 05:17 WBC 8.3 (4.8-10.8) X10*3/uL Hgb 14.2 (14.0-18.0) g/dl Hct 44.1 (42.0-52.0) % Plt Count 231 (160-400) X10*3/uL BMP 03/05/23 05:17 Sodium 138 Potassium 3.8 Chloride 104 Carbon Dioxide 22 BUN 7 L Creatinine 0.72 Calcium 8.7 D Assessment and Plan (1) Cellulitis: Status: Acute He has possible staph or strep He has venous stasis changes (2) Acute stasis dermatitis: Status: Acute Plan Linezolid Wound Care consult stasis ulcer dressings possible 10 d antibiotics Time Spent With Patient Time: Total time managing care of this patient today ____ minutes.
[2023-03-05 16:17] LABS: Glucose, Whole Blood 132 mg/dL (60-115)
[2023-03-05] MEDS: Enoxaparin Sodium 40 MG/0.4 ML SYRINGE SUBCUT (17:17)
[2023-03-05] MEDS: Linezolid/D5W 600 MG/300 ML PIGGYBACK 300 MG IV (17:23)
[2023-03-05 19:18] VITALS: BP 131/61; PULSE 72; RESP 17; TEMP 36.6; O2SAT 94
[2023-03-05 20:35] LABS: Glucose, Whole Blood 177 mg/dL (60-115)
[2023-03-05] MEDS: Insulin Lispro 100 UNIT/ML 3 ML VIAL SUBCUT (20:55)
[2023-03-05] MEDS: Pravastatin Sodium 40 MG TABLET PO (20:55)
[2023-03-06] MEDS: vancomycin HCL 1,250 MG in 0.9 % Sodium Chloride 250 ML 166.67 MG IV (02:44)
[2023-03-06] MEDS: oxyCODONE HCl Immed Release 5 MG TABLET PO ×2 (02:53→11:41)
[2023-03-06] MEDS: Acetaminophen 325 MG TABLET 650 MG PO ×2 (02:53→11:41)
[2023-03-06 03:44] VITALS: BP 147/66; PULSE 66; RESP 17; TEMP 36.6; O2SAT 95
[2023-03-06] MEDS: Linezolid/D5W 600 MG/300 ML PIGGYBACK 300 MG IV (06:40)
[2023-03-06 06:41] LABS: Creatinine Clr Calc Pharmacy 94.3; Estimated Glomerular Filt Rate > 60
[2023-03-06 07:21] VITALS: BP 134/63; PULSE 63; RESP 18; TEMP 36.9; O2SAT 95
[2023-03-06 07:34] LABS: Glucose, Whole Blood 157 mg/dL (60-115)
[2023-03-06] MEDS: Aspirin Enteric Coated 81 MG TABLET.DR PO (07:42)
[2023-03-06] MEDS: Cholecalciferol (Vitamin D3) 25 MCG TABLET 50 MCG PO (07:42)
[2023-03-06] MEDS: 0.9 % Sodium Chloride Flush 3 ML SYRINGE IVFLUSH (07:43)
[2023-03-06] MEDS: Insulin Lispro 100 UNIT/ML 3 ML VIAL SUBCUT ×2 (07:54→11:41)
[2023-03-06 09:42] LABS: C Reactive Protein 3.89 mg/dL (< or = 0.50)
[2023-03-06 11:16] LABS: Glucose, Whole Blood 166 mg/dL (60-115)
--- NOTE | 2023-03-06 11:17 | W.MHC.F2F ---
Service Date Service Date: 03/06/23 Encounter Date of encounter: 03/06/23 Reasons for Services Signs and symptoms assessed: leg infection venous stasis Reason for senior living: wound care, medication management, medication treatment and teach disease management Reason for physical therapy: home safety and mobility, therapeutic exercises, gait/transfer training, assess need for DME, ADL training and energy conservation MD Overseeing Care: Billy Longoria Homebound: Leaving the home is medically contraindicated at this time without the asist of a device and/or another person due th the listed conditions above and below. Reason homebound: immunosuppression / infection risk and weakness related to hospital stay Homebound supporting statement: LLE care: If erythematous skin, apply thin layer of zinc oxide daily Keep legs elevated If swollen leg, apply LEA wraps from top of toes to just below knee daily Certification: Based on the above findings, I certify that this patient is confined to the home and needs intermittent senior living care, physical therapy and/or speech therapy, or continues to need occupational therapy. The patient is under my care, and I have initiated the establishment of the plan of care. The patient will be followed by a physician who will periodically review the plan of care. Time Spent With Patient Time: Total time managing care of this patient today ____ minutes.
--- NOTE | 2023-03-06 11:23 | P.DS_ITS ---
DS: Providers Provider Date of Service: 03/06/23 Date of admission: 03/04/23 16:03 Date of discharge: 03/06/23 Primary care physician: Billy Longoria MD Consults: 03/04/23 16:20 Consult to Infectious Diseases Routine Consulting Provider: [facility] Infectious Disease Reason for consultation: cellulitis 03/06/23 07:57 Consult to Wound Care Routine Consulting Provider: [facility] Wound Care Management Reason for consultation: stasis ulcer dressings DS: Diagnosis Discharge Diagnosis (1) Cellulitis: Status: Acute (2) Acute stasis dermatitis: Status: Acute DS: Summary Hospital Course Hospital Course: from admission H+P by hospitalist Antonellajulio Figueroa, 03/04/23: 78-year-old man presenting to the ER with complaints of redness and swelling with weeping to his left lower extremity. He does have visiting nurse and was last seen approximately 3 days ago. He was also being seen by the wound center. He reports that she came over and undressed his left lower extremity and was concerned that it was swollen red and raw. EMS was called for transport to [facility]. He denied any fever, chills, nausea, vomiting, diarrhea. He was admitted in November of 2022 for the same. At that time he had venous Doppler ultrasound which was negative for DVT. In the ER, he was given a dose of vancomycin, Zosyn, 1 L of IV fluid. His vital signs have been stable, labs within acceptable limits. He will be admitted for further management and treatment of acute cellulitis. He was admitted to the medical-surgical floor. He was initially treated with IV vancomycin. Infectious Disease was consulted and recommended 10 days of linezolid, 1 of which was done in the hospital. Blood cultures were negative. Wound Care was consulted and recommended zinc oxide and LEA wraps for wound care. He improved markedly and was discharged home with VNA services. Time Spent with Patient Time attestation: Total time managing care of this patient today ___35_ minutes. Discharge coordination time: Greater than 30 minutes Quality: Safe Use of Opioids Does Pt have an Active Cancer Diagnosis on the Problem List?: No Quality: Stroke Does the patient have a stroke diagnosis?: No Physical Exam Vital Signs: Vital Signs: Last Vital Signs Temp 98.5 F 03/06/23 07:21 Pulse 63 03/06/23 07:21 Resp 18 03/06/23 07:21 BP 134/63 03/06/23 07:21 Pulse Ox 95 03/06/23 07:21 O2 Del Method Room Air 03/06/23 07:21 BMI result Body Mass Index 31.8 Gen: in no acute distress HEENT: sclera anicteric, moist mucus membranes Neck: supple Lungs: clear to auscultation bilaterally Heart: regular rate and rhythm, no murmurs Abd: soft, non-tender, non-distended Ext: LLE with erythema without any fluctuance Skin: warm/well-perfused Neuro: alert and oriented x3, no focal findings Psych: appropriate affect DS: Data Data Completed and Pending Completed studies during hospitalization [Text1]: Laboratory Results WBC 8.3 X10*3/uL (4.8-10.8) 03/05/23 05:17 RBC 4.57 X10*6/uL (4.60-5.80) L 03/05/23 05:17 Hgb 14.2 g/dl (14.0-18.0) 03/05/23 05:17 Hct 44.1 % (42.0-52.0) 03/05/23 05:17 MCV 96.5 fL (80.0-98.0) 03/05/23 05:17 MCH 31.1 pg (27.0-33.0) 03/05/23 05:17 MCHC 32.2 g/dl (31.0-36.0) 03/05/23 05:17 RDW 12.9 % (11.0-16.0) 03/05/23 05:17 Plt Count 231 X10*3/uL (160-400) 03/05/23 05:17 MPV 9.8 fL (9.4-12.4) 03/05/23 05:17 Immature Gran % (Auto) 0.3 % (0.0-0.4) 03/04/23 14:14 Neut % (Auto) 66.3 % (45-73) 03/04/23 14:14 Lymph % (Auto) 25.2 % (20-40) 03/04/23 14:14 [place] % (Auto) 7.2 % (2-11) 03/04/23 14:14 Eos % (Auto) 0.7 % (0-4) 03/04/23 14:14 Baso % (Auto) 0.3 % (0-2) 03/04/23 14:14 Lymph # (Auto) 2.3 X10*3/uL (1.2-4.9) 03/04/23 14:14 [place] # (Auto) 0.7 X10*3/uL (0.1-1.2) 03/04/23 14:14 Eos # (Auto) 0.1 X10*3/uL (0.0-0.4) 03/04/23 14:14 Baso # (Auto) 0.0 X10*3/uL (0.0-0.2) 03/04/23 14:14 Abs Immat Gran (auto) 0.03 X10*3/uL (0.00-0.03) 03/04/23 14:14 Absolute Neuts (auto) 6.0 x10*3/uL (2.0-8.3) 03/04/23 14:14 Absolute Nucleated RBC 0.000 X10*3/uL (0.0-0.012) 03/05/23 05:17 Nucleated RBC % (auto) 0.0 /100WBC (0.0-0.2) 03/05/23 05:17 Sodium 138 mmol/L (135-145) 03/05/23 05:17 Potassium 3.8 mmol/L (3.3-5.1) 03/05/23 05:17 Chloride 104 mmol/L (96-108) 03/05/23 05:17 Carbon Dioxide 22 mmol/L (22-29) 03/05/23 05:17 Anion Gap 16 (12-20) 03/05/23 05:17 BUN 7 mg/dL (9-16) L 03/05/23 05:17 Creatinine 0.80 mg/dL (0.5-1.4) 03/06/23 05:49 Estim Creat Clear Calc 94.3 03/06/23 05:49 Estimated GFR > 60 03/06/23 05:49 POC Glucose 166 mg/dL (60-115) H 03/06/23 11:12 Random Glucose 113 mg/dL (60-115) 03/05/23 05:17 Lactic Acid 1.8 mmol/L (0.5-2.0) 03/04/23 14:14 Calcium 8.7 mg/dL (8.4-10.2) D 03/05/23 05:17 Total Bilirubin 0.5 mg/dL (0.0-1.0) 03/04/23 14:14 Direct Bilirubin 0.2 mg/dL (0.0-0.5) 03/04/23 14:14 AST 14 U/L (5-37) 03/04/23 14:14 ALT 10 U/L (0-40) 03/04/23 14:14 Alkaline Phosphatase 86 U/L (39-117) 03/04/23 14:14 C-Reactive Protein 3.89 mg/dL (< or = 0.50) H 03/06/23 05:49 Total Protein 7.0 g/dL (6.5-8.0) 03/04/23 14:14 Albumin 3.6 g/dL (3.5-5.0) 03/04/23 14:14 Random Vancomycin 10.7 mcg/mL (15-20) L 03/05/23 13:07 Urine Opiates Screen Not Detected (Not Detect) 03/04/23 15:47 Urine Fentanyl Screen Not Detected (Not Detect) 03/04/23 15:47 Ur Barbiturates Screen Not Detected (Not Detect) 03/04/23 15:47 Ur Phencyclidine Scrn Not Detected (Not Detect) 03/04/23 15:47 Ur Amphetamines Screen Not Detected (Not Detect) 03/04/23 15:47 U Benzodiazepines Scrn Not Detected (Not Detect) 03/04/23 15:47 Urine Cocaine Screen Not Detected (Not Detect) 03/04/23 15:47 U Marijuana (THC) Screen Not Detected (Not Detect) 03/04/23 15:47 Impressions Venous Duplex 03/04/23 18:34 IMPRESSION: No DVT demonstrated in the left lower extremity. Discharge Plan Discharge Anticipated Discharge Date/Time: 03/06/23 11:21 Patient Disposition: Home Health Service Discharge Diagnosis: cellulitis venous stasis Referrals: Billy Longoria MD [Primary Care Provider] - 1 Week Discharge Medications: New linezolid 600 mg tablet 600 mg PO BID Qty: 18 0RF Continued (DME) CUSHION SKIN PROTECTION LESS THAN 22 -- E2503 See Rx Instructions .Route .MEDSUPPLY Qty: 1 0RF Rx Instructions: As directed (DME) ELECTRIC WHEELCHAIR See Rx Instructions .Route .MEDSUPPLY Qty: 1 0RF Rx Instructions: for lifetime use (DME) ADJUSTABLE HEIGHT ARM ASSEMBLY -- E0973 See Rx Instructions .Route .MEDSUPPLY Qty: 2 0RF Rx Instructions: As directed (DME) HEEL LOOPS -- E0951 See Rx Instructions .Route .MEDSUPPLY Qty: 2 0RF Rx Instructions: As directed (DME) BATTERY -- E2365 See Rx Instructions .Route .MEDSUPPLY Qty: 1 0RF Rx Instructions: As directed cholecalciferol (vitamin D3) 50 mcg (2,000 unit) capsule 50 mcg PO DAILY 90 Days Qty: 90 3RF pravastatin 40 mg tablet 40 mg PO BEDTIME Qty: 90 1RF gabapentin 300 mg capsule 300 mg PO TID PRN (Reason: Pain) 30 Days Qty: 90 3RF metformin 500 mg tablet 500 mg PO BID 90 Days Qty: 180 1RF glipizide 10 mg tablet 10 mg PO BID 90 Days Qty: 180 1RF albuterol sulfate 90 mcg/actuation Hfa Aerosol Inhaler 2 puff INHALATION Q6H PRN (Reason: Respiratory Distress) ipratropium-albuterol 0.5 mg-3 mg(2.5 mg base)/3 mL solution for nebulization 3 ml inhalation Q6H PRN (Reason: wheezing) 30 Days Qty: 360 3RF aspirin 81 mg tablet,delayed release (DR/EC) 81 mg PO DAILY Qty: 30 0RF Discharge Orders: Discharge Order (Routine); Ordered 03/06/23 Ordered By: Johana Vaughn Diet: Diabetic diet Activity on Discharge: As tolerated Stand Alone Forms: Patient Portal Discharge page Care Plan Goals: cure of infection Health Concerns: cellulitis venous stasis Plan of Treatment: antibiotic LINEZOLID [Zyvox] 600 mg twice daily for 9 days LLE care: If erythematous skin, apply thin layer of zinc oxide daily Keep legs elevated If swollen leg, apply LEA wraps from top of toes to just below knee daily Please follow up with your primary care doctor within 1 week. Return to the hospital if you experience recurrent or worsening symptoms. Assessment: See Discharge Summary.
--- NOTE | 2023-03-06 13:56 | MHC.CM.PN ---
pt may be dcd today with vna pending cultures
[2023-03-06 15:17] VITALS: BP 122/60; PULSE 63; RESP 18; TEMP 36.9; O2SAT 94
[2023-03-06 16:15] LABS: Glucose, Whole Blood 127 mg/dL (60-115)
--- NOTE | 2023-03-06 16:27 | MHC.CM.PN ---
caretenders notified via allscripts re pt being dcd today
[2023-03-06] MEDS: Enoxaparin Sodium 40 MG/0.4 ML SYRINGE SUBCUT (17:29)
== END 2023-03-06 06:40 | disposition home health service (06) | DRG 603 ==
LOC: HO.ED 15:27 → HO.EDOVER 16:07 → HO.S3 03-05 10:30
PROVIDERS: Admitting Provider Nurse Practitioner Acute Care; Emergency Provider Emergency Medicine; PCP Internal Medicine; Visit Provider Family Medicine
DX: L03.116 Cellulitis of left lower limb (principal); E11.42 Type 2 diabetes mellitus with diabetic polyneuropathy; I10 Essential (primary) hypertension; J44.9 Chronic obstructive pulmonary disease, unspecified; E66.9 Obesity, unspecified; Z68.30 Body mass index [BMI] 30.0-30.9, adult; G47.33 Obstructive sleep apnea (adult) (pediatric); E78.5 Hyperlipidemia, unspecified; I87.2 Venous insufficiency (chronic) (peripheral); F17.210 Nicotine dependence, cigarettes, uncomplicated; Z23 Encounter for immunization; Z71.6 Tobacco abuse counseling; Z79.82 Long term (current) use of aspirin; Z79.84 Long term (current) use of oral hypoglycemic drugs; Z79.899 Other long term (current) drug therapy
CPT/HCPCS: 36415; 80048; 80076; 80202; 80307; 82565; 82947; 83605; 85025; 85027; 86140; 87040; 90686; 93971; 99285; J1650; J2020; J2543; J3370; J3371

== ENCOUNTER → 2023-03-04 16:03 | Outpatient (BNV) | payer MEDICARE, BC, SELFPAY | PROVIDERS: Admitting Provider Nurse Practitioner Acute Care; Emergency Provider Emergency Medicine; PCP Internal Medicine; Visit Provider Internal Medicine | DX: L03.90 Cellulitis, unspecified (principal); I87.2 Venous insufficiency (chronic) (peripheral) | CPT/HCPCS: 99222 ==

== ENCOUNTER → 2023-03-04 16:03 | Outpatient (BNV) | payer MEDICARE, BC, SELFPAY | PROVIDERS: Admitting Provider Nurse Practitioner Acute Care; Emergency Provider Emergency Medicine; PCP Internal Medicine; Visit Provider Nurse Practitioner Acute Care | DX: L03.116 Cellulitis of left lower limb (principal) | CPT/HCPCS: 99223; 99232; 99239; G0180 ==

== ENCOUNTER 2023-07-02 03:19 | Inpatient (IN) | payer MEDICARE, BC, SELFPAY ==
[2023-07-02] VITALS (13 sets, daily range): BP systolic 93–136; BP diastolic 41–74; PULSE 63–77; RESP 14–20; TEMP 36.3–37; O2SAT 96–100; BMI 25.0
--- NOTE | ~2023-07-02 | CT_ITS ---
EXAMINATION: CT HEAD WITHOUT CONTRAST CLINICAL INFORMATION: Fall COMPARISON: None available. TECHNIQUE: Contiguous axial imaging was performed from the skull base to vertex without intravenous administration of contrast. This CT examination was performed using dose optimization techniques as appropriate, variously including the following: *Automated exposure control *Adjustment of mA and/or kV according to patient size (this includes techniques or standardized protocols for targeted exams where dose is matched to indication/reason for exam; i.e. extremities or head) *Use of iterative reconstruction technique DLP: 807 mGy-cm FINDINGS: There is no evidence of acute intracranial hemorrhage or territorial infarction. No abnormal mass-effect or midline shift is seen. Balderas to white matter differentiation is well preserved. No extra-axial fluid collections are identified. The ventricles are normal in size. There is mild periventricular white matter hypoattenuation consistent with chronic small vessel ischemic disease. Moderate volume loss is noted. Hyperdense curvilinear structure along the posterior aspect of the right globe may reflect sequelae of age-indeterminate lens dislocation. The osseous structures and soft tissues are normal. The mastoid air cells and visualized portions of the paranasal sinuses are well-aerated. CT/CT head/brain wo IV con IMPRESSION: 1. No acute intracranial pathology. 2. Hyperdense curvilinear structure along the posterior aspect of the right globe may reflect sequelae of age-indeterminate lens dislocation.
--- NOTE | ~2023-07-02 | XR_ITS ---
EXAMINATION: XR FOOT, LEFT CLINICAL INFORMATION: Nonhealing wound COMPARISON: 12/03/2022 TECHNIQUE: AP, lateral, and oblique views of the left foot. FINDINGS: Articular alignment throughout the foot appears anatomic. Heterogeneous osteopenia is noted. No acute fracture is seen. Redemonstrated plantar calcaneal spurring. Suboptimal assessment of the region of the metatarsophalangeal joints due to hyperextension. There is prominent dorsal soft tissue swelling throughout the foot. Subtle cortical erosion at the base of the fifth proximal phalanx is difficult to exclude in this setting. XR/XR foot LT min 3V IMPRESSION: Prominent dorsal soft tissue swelling throughout the foot. Subtle cortical erosion at the base of the fifth proximal phalanx is difficult to exclude in this setting. If there is clinical concern for osteomyelitis, further evaluation with MRI would be helpful.
--- NOTE | ~2023-07-02 | XR_ITS ---
EXAMINATION: XR CHEST CLINICAL INFORMATION: Cough COMPARISON: 12/03/2022 TECHNIQUE: Frontal view of the chest was obtained. FINDINGS: Lung volumes are symmetric. Mild patchy right basilar opacity is suspected. Left lung appears well-aerated. No evidence of pneumothorax, significant pleural effusion, or overt pulmonary edema. Calcification is present at the aortic arch. Calcification is present at the aortic arch. No acute osseous findings are seen. XR/XR chest 1V IMPRESSION: Mild patchy right basilar opacity may reflect developing consolidation in the proper clinical setting.
--- NOTE | ~2023-07-02 | MR_ITS ---
EXAMINATION: MR FOOT WITHOUT AND WITH CONTRAST, LEFT CLINICAL INFORMATION: Left foot ulcer. Evaluate for osteomyelitis. COMPARISON: Most recent left foot radiographs dated 07/02/2023. TECHNIQUE: MRI of the left foot was performed before and after the intravenous administration of 10 mL Gadavist on a high-field scanner. FINDINGS: Prominent skin thickening along the dorsum of the foot with severe subcutaneous edema. Minimal postcontrast enhancement of the skin with possible dorsal ulceration. Findings could represent acute cellulitis. No organized fluid collection or abscess formation. No marrow edema, periosteal reaction, or osseous erosion to suggest acute osteomyelitis. No metatarsal stress reaction or fracture. Articular cartilage thinning with marginal osteophytes at the 1st metatarsophalangeal joint and hallux sesamoids with more mild osteoarthritis at the 2nd metatarsophalangeal joint. No concerning lytic or blastic osseous lesion. Diffuse edema and atrophy throughout the intrinsic musculature of the foot which can be seen in diabetic patients. The visualized flexor and extensor tendons are intact. Intact Lisfranc ligament. MR/MR foot LT wo/w con IMPRESSION: 1. Prominent skin thickening and subcutaneous edema along the dorsum of the foot with minimal postcontrast enhancement. Findings could represent an acute cellulitis. No abscess formation. No evidence of acute osteomyelitis. 2. Mild osteoarthritis at the 1st and 2nd metatarsophalangeal joints. 3. Diffuse edema and atrophy throughout the intrinsic musculature of the foot which can be seen in diabetic patients.
--- NOTE | 2023-07-02 03:33 | MHC.EDTECH ---
Patient was biba from home ,blood sugar check ,RN Page is aware of result of 46 ,Vitals taken .
[2023-07-02 03:35] LABS: Glucose, Whole Blood 46 mg/dL (60-115)
--- NOTE | 2023-07-02 03:41 | ECG_ITS ---
Test Reason : FALL Blood Pressure : / mmHG Vent. Rate : 078 BPM Atrial Rate : 078 BPM P-R Int : 152 ms QRS Dur : 084 ms QT Int : 406 ms P-R-T Axes : 089 048 066 degrees QTc Int : 462 ms Normal sinus rhythm Normal ECG When compared with ECG of 03-FEB-2022 14:16, Premature supraventricular complexes are no longer Present QT has lengthened Referred By: Generic ED Physician Electronically Signed By:Juan Carlos Sargent
--- NOTE | 2023-07-02 03:45 | PC.NURSE ---
late entry- pt biba from home poc at [facility] 46. this rn made dr akins aware of poc per md give pt po orange juice with sugar. pt tolerated po well. 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 labs obtained iv placed
[2023-07-02 03:51] LABS: Basophils Percent Auto 0.1 % (0-2); Eosinophils Percent Auto 0.1 % (0-4); Hematocrit 42.4 % (42.0-52.0); Imm Gran Abs Auto 0.07 X10*3/uL (0.00-0.03); Imm Gran Pct Auto 0.5 % (0.0-0.4); Lymphocytes Absolute Auto 1.1 X10*3/uL (1.2-4.9); Lymphocytes Percent Auto 7.3 % (20-40); MANUAL DIFF FLAG NO; Mean Corpuscular Hemoglobin 30.7 pg (27.0-33.0); Mean Platelet Volume 9.4 fL (9.4-12.4); Monocytes Absolute Auto 0.9 X10*3/uL (0.1-1.2); Monocytes Percent Auto 5.8 % (2-11); Neutrophils Absolute Auto 12.7 x10*3/uL (2.0-8.3); Neutrophils Percent Auto 86.2 % (45-73); Platelet Count 348 X10*3/uL (160-400); Red Blood Count 4.56 X10*6/uL (4.60-5.80); Red Cell Distribution Width 13.1 % (11.0-16.0); White Blood Count 14.7 X10*3/uL (4.8-10.8)
--- NOTE | 2023-07-02 04:01 | MHC.EDTECH ---
EKG TAKEN AND WAS READ BY PROVIDER ,BLOOD SUGAR RE CHECK AFTER PATIENT WAS GIVEN ORANGE JUICE WITH SUGAR AND THAIS JOHNSON ,RN PAGE AWARE BLOOD SUGAR WENT UP TO 85 ,0400 VITALS TAKEN ,CALL MIRZA WITHIN PT REACH .
[2023-07-02 04:06] LABS: Alanine Aminotransferase 44 U/L (0-40); Albumin Level 2.8 g/dL (3.5-5.0); Alkaline Phosphatase 101 U/L (39-117); Anion Gap 16 (12-20); Aspartate Amino Transferase 59 U/L (5-37); Bilirubin Total 0.7 mg/dL (0.0-1.0); Blood Urea Nitrogen 18 mg/dL (9-16); Calcium 8.9 mg/dL (8.4-10.2); Carbon Dioxide 22 mmol/L (22-29); Chloride 100 mmol/L (96-108); Creatinine Clr Calc Pharmacy 68.7; Estimated Glomerular Filt Rate > 60; Glucose Random 60 mg/dL (60-115); Potassium 3.6 mmol/L (3.3-5.1); Sodium 134 mmol/L (135-145); Total Protein 6.9 g/dL (6.5-8.0)
[2023-07-02 04:08] LABS: Glucose, Whole Blood 85 mg/dL (60-115)
[2023-07-02 04:13] LABS: Troponin-I High Sensitivity 6.5 ng/L (<3.5-35.0)
--- NOTE | 2023-07-02 04:45 | PC.NURSE ---
dr akins to bedside. leg wraps removed from B legs by this rn per md. pt changed photos placed in chart of L extremity wound as well as redness on scrotum as well as coccyx and L buttock. images sent to dr akins. orders placed by for blood cultures and LA. no sepsis alert initiated
--- NOTE | 2023-07-02 05:07 | MHC.EDTECH ---
LACTIC ACID AND BLOOD CULTURE DRAWN ,FLU/COVID SWAB COLLECTED ALL SENT TO LAB ,PATIENT BELONGING LIST DONE ,PATIENT WAS SOILED HAS OPEN AREA ON LEFT BUTT CHECK , AND STEVE AREA ON GROIN ,RN AWARE ,CARE GIVEN .
[2023-07-02 05:09] LABS: Lactic Acid 3.9 mmol/L (0.5-2.0)
--- NOTE | 2023-07-02 05:15 | PC.NURSE ---
pt medicated according to aug. vancomycin administered at 0508 . exceeding 30minutes due to delay in second set of blood cultures
--- NOTE | 2023-07-02 05:16 | ED.FALL ---
HPI - Fall General Chief Complaint: Fall Stated Complaint: FALL Time Seen by Provider: 07/02/23 03:55 Source: patient and EMS Mode of arrival: EMS Limitations: no limitations History of Present Illness HPI Narrative: Patient is 78 years old with history of COPD stasis edema of both lower extremities with ulceration on the left foot lives alone with poor hygiene when arrived does have VNA coming to his house who does the dressing off his feet also does have OFFICE SWEEPER coming to his home but patient is mostly wheelchair-bound status and pivot to bed and wheelchair apparently patient was on the bed trying to get water lost balance and fell down without any significant injuries no head injury EMS at patient had a head strike but patient denied any on arrival patient POC was 50 EMS gave him 1 dose of oral glucose rechecked POC was 55 on arrival patient POC was 46 patient take metformin and glipizide no insulin use patient does have chronic stasis ulcer on the left foot but according to patient is getting better no significant pus discharged Related Data Previous Rx's Medication Instructions Recorded aspirin 81 mg tablet,delayed 81 mg PO DAILY #30 tabs 04/12/20 release ADJUSTABLE HEIGHT ARM ASSEMBLY -- #2 ea 03/29/22 E0973 BATTERY -- E2365 #1 ea 03/29/22 CUSHION SKIN PROTECTION LESS THAN #1 ea 03/29/22 22 -- E2503 ELECTRIC WHEELCHAIR #1 ea 03/29/22 HEEL LOOPS -- E0951 #2 ea 03/29/22 pravastatin 40 mg tablet 40 mg PO BEDTIME #90 tabs 10/30/22 glipizide 10 mg tablet 10 mg PO BID 90 days #180 tabs 01/30/23 metformin 500 mg tablet 500 mg PO BID 90 days #180 tabs 01/30/23 linezolid 600 mg tablet 600 mg PO BID #18 tabs 03/06/23 cholecalciferol (vitamin D3) 50 50 mcg PO DAILY 90 days #90 caps 03/07/23 mcg (2,000 unit) capsule gabapentin 300 mg capsule 300 mg PO TID PRN Pain 30 days #90 04/26/23 caps albuterol sulfate 90 mcg/actuation 2 puff inhalation Q6H PRN 06/20/23 aerosol inhaler Respiratory Distress #8.5 grams ipratropium 0.5 mg-albuterol 3 mg 3 ml inhalation Q6H PRN wheezing 06/20/23 (2.5 mg base)/3 mL nebulization 30 days #360 mL soln nebulizers #1 ea 06/21/23 nebulizers (MC 300 Nebulizer with #1 ea 06/21/23 [place] [facility]) Allergies Allergy/AdvReac Type Severity Reaction Status Date / Time Fish Containing Products Allergy Severe ANAPHYLAXIS Verified 12/27/22 13:23 shellfish derived Allergy Severe ANAPHYLAXIS Verified 12/27/22 13:23 Review of Systems Review of Systems: Yes all other systems are reviewed and are negative [facility] Past Medical History Medical History Stasis ulcer of right lower extremity Obesity (BMI 30-39.9) Depression Psoriasis Primary osteoarthritis of both knees Vitamin D deficiency Coronary artery disease Benign essential hypertension Type 2 diabetes mellitus with diabetic neuropathy, unspecified COPD (chronic obstructive pulmonary disease) FADY (obstructive sleep apnea) Neuropathy Pulmonary hypertension HLD (hyperlipidemia) Surgical History No pertinent past surgical history Family History Family History Father Medical history unknown Mother Cancer Social History Social History Household Members: None Housing: Apartment Do you presently have visiting nurse or other home services: Yes Alcohol intake: current Alcohol intake frequency: holidays/special occasions only Alcohol type: beer and wine Patient Tobacco Use Status: Current everyday Tobacco user Tobacco use type: Cigarette Cigarette Packs Per Day: 0.5 Cigarettes Per Day: 5 Years Smoked: 50 e-Cigarette/Vaping Use: Never Used Second Hand Smoke Exposure: No Advance Directives: Yes Advance Directives on File: Yes Advance Directives Date on File: 02/03/22 service: No Current occupational status: retired Cognitive needs: No Hearing needs: No Vision needs: No Physical Exam Vital Signs: Vital Signs: Last Vital Signs Temp 97.8 F 07/02/23 06:40 Pulse 63 07/02/23 06:40 Resp 16 07/02/23 06:40 BP 122/61 07/02/23 06:40 Pulse Ox 100 07/02/23 06:40 O2 Del Method Room Air 07/02/23 06:40 BMI result Body Mass Index 25.0 Appearance: Alert. Oriented X3. No acute distress. Unkept condition Eyes: PERRLA, No Nystagmus ENT: Pharynx normal. Oral Mucosa moist Neck: Normal inspection. Neck supple. No midline tenderness CVS: Normal heart rate and rhythm. Pulses normal. Respiratory: No respiratory distress. Equal air entry bilateral, no wheezing/rales/rhonchi Abdomen: Soft and nontender. Bowel sounds are present, no mass palpable, no CVA tenderness Skin: Skin warm and dry. Normal skin color. Normal skin turgor. Extremities: Dependent 4+ lower extremity edema. With left dorsum of the foot foul-smelling discharge No calf tenderness Neuro: Oriented X 3. No motor deficit. No sensory deficit.No cerebellar signs , cranial nerves II-XII intact Medications Administered Discontinued Medications Generic Name Dose Route Start Last Admin Trade Name Freq PRN Reason Stop Dose Admin Vancomycin HCl 2,000 mg in 520 mls @ 250 mls/hr 07/02/23 04:28 07/02/23 05:08 Vancomycin/Ns IV 07/02/23 06:32 250 mls/hr ONCE ONE Administration Sodium Chloride 1,000 mls @ 999 mls/hr 07/02/23 05:48 07/02/23 05:59 Ns IV 07/02/23 06:48 999 mls/hr .Q1H1M ONE Administration Medical Decision Making Medical Decision Making [facility] Narrative: Patient with nonhealing left dorsum of the foot also with poor oral hygiene with poor oral intake on oral hypoglycemic with hypoglycemia elevated white counts elevated lactic acid. Elevated lactic acid could be because of metformin contributing to elevation. Patient is afebrile on arrival. Chest x-ray showed infiltrate in the right lower lobe in does have cough for some time and does have COPD start patient on vancomycin and ceftriaxone IV fluids were given will admit patient for nonhealing wound on the left foot and early pneumonia with hypoglycemia Differential Diagnosis Differential Diagnoses: The differential diagnosis associated with the presentation includes As above Admission/Observation Consideration of admission/observation: Escalation of care including admission/observation considered Consult Healthcare Provider Management of the patient was discussed with: Hospitalist Lab Data [facility] Lab Attestation statement: I reviewed the patient's lab results. 07/02/23 03:47 07/02/23 03:47 Labs: Lab Results 07/02/23 07/02/23 07/02/23 Range/Units 03:31 03:47 03:59 WBC 14.7 H (4.8-10.8) X10*3/uL RBC 4.56 L (4.60-5.80) X10*6/uL Hgb 14.0 (14.0-18.0) g/dl Hct 42.4 (42.0-52.0) % MCV 93.0 (80.0-98.0) fL MCH 30.7 (27.0-33.0) pg MCHC 33.0 (31.0-36.0) g/dl RDW 13.1 (11.0-16.0) % Plt Count 348 D (160-400) X10*3/uL MPV 9.4 (9.4-12.4) fL Immature Gran % (Auto) 0.5 H (0.0-0.4) % Neut % (Auto) 86.2 H (45-73) % Lymph % (Auto) 7.3 L (20-40) % [place] % (Auto) 5.8 (2-11) % Eos % (Auto) 0.1 (0-4) % Baso % (Auto) 0.1 (0-2) % Lymph # (Auto) 1.1 L (1.2-4.9) X10*3/uL [place] # (Auto) 0.9 (0.1-1.2) X10*3/uL Eos # (Auto) 0.0 (0.0-0.4) X10*3/uL Baso # (Auto) 0.0 (0.0-0.2) X10*3/uL Abs Immat Gran (auto) 0.07 H (0.00-0.03) X10*3/uL Absolute Neuts (auto) 12.7 H (2.0-8.3) x10*3/uL Absolute Nucleated RBC 0.000 (0.0-0.012) X10*3/uL Nucleated RBC % (auto) 0.0 (0.0-0.2) /100WBC Sodium 134 L (135-145) mmol/L Potassium 3.6 (3.3-5.1) mmol/L Chloride 100 (96-108) mmol/L Carbon Dioxide 22 (22-29) mmol/L Anion Gap 16 (12-20) BUN 18 H (9-16) mg/dL Creatinine 1.07 (0.5-1.4) mg/dL Estim Creat Clear Calc 68.7 Estimated GFR > 60 POC Glucose 46 L* 85 (60-115) mg/dL Random Glucose 60 (60-115) mg/dL Lactic Acid (0.5-2.0) mmol/L Calcium 8.9 (8.4-10.2) mg/dL Total Bilirubin 0.7 (0.0-1.0) mg/dL AST 59 H (5-37) U/L ALT 44 H (0-40) U/L Alkaline Phosphatase 101 (39-117) U/L Troponin I High Sens 6.5 (<3.5-35.0) ng/L Total Protein 6.9 (6.5-8.0) g/dL Albumin 2.8 L (3.5-5.0) g/dL COVID-19 (BREONNA) (Negative) COVID-19 Clin Com Influenza Type A (NANCY) (Negative) Influenza Type B (NANCY) (Negative) Influenza A & B Note 07/02/23 07/02/23 Range/Units 04:46 04:53 WBC (4.8-10.8) X10*3/uL RBC (4.60-5.80) X10*6/uL Hgb (14.0-18.0) g/dl Hct (42.0-52.0) % MCV (80.0-98.0) fL MCH (27.0-33.0) pg MCHC (31.0-36.0) g/dl RDW (11.0-16.0) % Plt Count (160-400) X10*3/uL MPV (9.4-12.4) fL Immature Gran % (Auto) (0.0-0.4) % Neut % (Auto) (45-73) % Lymph % (Auto) (20-40) % [place] % (Auto) (2-11) % Eos % (Auto) (0-4) % Baso % (Auto) (0-2) % Lymph # (Auto) (1.2-4.9) X10*3/uL [place] # (Auto) (0.1-1.2) X10*3/uL Eos # (Auto) (0.0-0.4) X10*3/uL Baso # (Auto) (0.0-0.2) X10*3/uL Abs Immat Gran (auto) (0.00-0.03) X10*3/uL Absolute Neuts (auto) (2.0-8.3) x10*3/uL Absolute Nucleated RBC (0.0-0.012) X10*3/uL Nucleated RBC % (auto) (0.0-0.2) /100WBC Sodium (135-145) mmol/L Potassium (3.3-5.1) mmol/L Chloride (96-108) mmol/L Carbon Dioxide (22-29) mmol/L Anion Gap (12-20) BUN (9-16) mg/dL Creatinine (0.5-1.4) mg/dL Estim Creat Clear Calc Estimated GFR POC Glucose (60-115) mg/dL Random Glucose (60-115) mg/dL Lactic Acid 3.9 H* (0.5-2.0) mmol/L Calcium (8.4-10.2) mg/dL Total Bilirubin (0.0-1.0) mg/dL AST (5-37) U/L ALT (0-40) U/L Alkaline Phosphatase (39-117) U/L Troponin I High Sens (<3.5-35.0) ng/L Total Protein (6.5-8.0) g/dL Albumin (3.5-5.0) g/dL COVID-19 (BREONNA) Negative (Negative) COVID-19 Clin Com See Note Influenza Type A (NANCY) Negative (Negative) Influenza Type B (NANCY) Negative (Negative) Influenza A & B Note See Note Independent Interpretation I performed an independent interpretation of an: EKG, Plain X-Ray and CT Scan Interpretation: Normal sinus rhythm heart rate 98 beats per minute normal interval normal axis no acute ST T wave changes no acute ischemia impression normal EKG Radiology Impression Discussion of test interpretation with radiology: I have reviewed the radiologist's reading. External Record Review External record reviewed: Inpatient record and Primary care record Critical Care Time Critical Care Time Critical Care Time: Yes Total Critical Care Time: 60 Attestation: The patient was critically ill with a high probability of imminent or life threatening deterioration. I spent greater than 65???minutes of discontinuous time evaluating the patient,delivering critical care at the bedside, discussing and evaluating pertinent data with consultants. Critical care time does not include time spent performing separately billable procedures or teaching. Total time spent performing critical care was ?60??minutes. Discharge Plan Discharge Clinical Impression: Hypoglycemia, Stasis edema with ulcer of left lower extremity, Pneumonia, Acidosis, lactic Patient Disposition: Admitted As Inpatient
[2023-07-02 05:18] LABS: COVID-19 Test Negative (Negative); IDNOW Serial# 08D9AD1C; IDNOW Serial# 152EDE1D; Influenza A Negative (Negative); Influenza B2 Negative (Negative)
[2023-07-02] MEDS: 0.9 % Sodium Chloride 1,000 ML 999 ML IV (05:59)
[2023-07-02 06:56] LABS: Reflex Lactate? Lactic Acid Added
[2023-07-02 07:00] LABS: Appearance Urine Turbid; Color Urine Dark Yellow; Glucose Urine UA Negative (Negative); Leukocyte Esterase Urine Large (3+) (Negative); Nitrite Urine Negative (Negative); PH 5.5 (5.0-9.0); Specific Gravity - Urine 1.015 (1.005-1.025); UMIC TRIGGER UACC YES; Urine Blood Moderate (2+) (Negative); Urine Ketones Trace mg/dL (Negative); Urine Protein 100 (2+) mg/dL (Neg-Trace)
[2023-07-02 07:14] LABS: Bacteria Urine 4+ (None Seen); UACC Culture Trigger YES; WBC Urine >50 /HPF (0-5)
[2023-07-02] MEDS: cefTRIAXone sodium 1 GM in 0.9 % Sodium Chloride 50 ML IV (08:01)
[2023-07-02 08:05] LABS: Glucose, Whole Blood 78 mg/dL (60-115)
--- NOTE | 2023-07-02 08:14 | PHA.MEDREC ---
Pharmacy Consult ? Medication Reconciliation Pharmacy has completed the medication reconciliation. Spoke with patient in the ED who was able to list off all of his medications and how many times a day he takes them. Patient last took medications yesterday.
[2023-07-02 08:21] LABS: ~Lactic Acid-LAB USE ONLY 3.4 mmol/L (0.5-2.0)
--- NOTE | 2023-07-02 09:43 | PHA.PROG ---
Admission Date/Time: July 02, 2023 09:20 Indication: ssti Weight in k kg Adjusted body weight in K kg [place] body weight in K.8 kg Obesity Dosing Indication % IBW: Serum Creatinine - Last 168 Hours 07/02/23 03:47 Creatinine 1.07 Estimated CrCl and GFR - Last 168 Hours 07/02/23 03:47 Estim Creat Clear Calc 68.7 Estimated GFR > 60 Vancomycin Loading Dose: 2000 mg Current Vancomycin Dosing Regimen: 1500 mg q24h Vancomycin Monitoring using AUC goal of 400 - 600 range with trough as surrogate marker: predicted auc 487 Date and Time for next Vancomycin Level to be drawn: puneet 07/03/23 @2100 Pharmacist Comments on Vancomycin Plan: vancomycin 2nd dose started 6 hours early so trough is not scheduled in the middle of the night when pharmacy is not available. Vancomycin dosing will take advantage of [employer]oc as a clinical decision support tool that uses Bayesian modeling to calculate individual patient's pharmacokinetic parameters and forecast the patient's drug concentration time course with the target goal AUC 24 range of 400 - 600 mg/L/hr.
[2023-07-02] MEDS: Aspirin Enteric Coated 81 MG TABLET.DR PO (09:52)
[2023-07-02] MEDS: Cholecalciferol (Vitamin D3) 25 MCG TABLET 50 MCG PO (09:52)
[2023-07-02] MEDS: Nystatin Powder 15 GM BOTTLE 1 APPL TOPICAL ×2 (09:52→21:56)
[2023-07-02] MEDS: Enoxaparin Sodium 40 MG/0.4 ML SYRINGE SUBCUT (09:52)
[2023-07-02] MEDS: Piperacillin Sodium/Tazobactam 4.5 GM in 0.9 % Sodium Chloride 100 ML IV ×3 (09:56→21:17)
[2023-07-02 10:01] LABS: Reflex Lactate? 2 Y
[2023-07-02 10:35] LABS: ~Lactic Acid-LAB USE ONLY 1.4 mmol/L (0.5-2.0)
--- NOTE | 2023-07-02 11:01 | PC.NURSE ---
Assumed care of patient at 1045. Received in report that pts blood pressure has been running low today, this RN entered room to check it. Pt sleeping, blood pressure as documented in flowsheet (90s/40s), DO Snow tiger texted, awaiting new orders at this time
[2023-07-02] MEDS: Lactated Ringers 1,000 ML 150 ML IVCONT ×2 (11:07→19:27)
[2023-07-02] MEDS: Albumin Human 25 % 100 ML IV ×2 (11:17→13:09)
--- NOTE | 2023-07-02 12:23 | PC.NURSE ---
fluids running on pt without issue. Blood pressure improving. pt continues to report no symptoms at this time, rr even and unlabored, skin pwd, alert and oriented x4, reports no pain. Awaiting bed assignment at this time
[2023-07-02 12:31] LABS: Glucose, Whole Blood 70 mg/dL (60-115)
--- NOTE | 2023-07-02 14:28 | P.HPHOSP_ITS ---
History of Present Illness Date of Service: 07/02/23 Chief Complaint: Cellulitis left lower extremity 78 years old with history of COPD stasis edema of both lower extremities with ulceration on the left foot lives alone with poor hygiene when arrived does have VNA coming to his house who does the dressing off his feet also does have [employer] coming to his home but patient is mostly wheelchair-bound status and pivot to bed and wheelchair apparently patient was on the bed trying to get water lost balance and fell down without any significant injuries no head injury EMS at patient had a head strike but patient denied any on arrival patient POC was 50 EMS gave him 1 dose of oral glucose rechecked POC was 55 on arrival patient POC was 46 patient take metformin and glipizide no insulin use patient does have chronic stasis ulcer on the left foot . Admit for treatment of same Review of Systems 2 Review of Systems: Denies chest pain Denies shortness of breath Denies nausea vomiting diarrhea Denies fever chills PMFSH Medical History Stasis ulcer of right lower extremity Obesity (BMI 30-39.9) Depression Psoriasis Primary osteoarthritis of both knees Vitamin D deficiency Coronary artery disease Benign essential hypertension Type 2 diabetes mellitus with diabetic neuropathy, unspecified COPD (chronic obstructive pulmonary disease) FADY (obstructive sleep apnea) Neuropathy Pulmonary hypertension HLD (hyperlipidemia) Family History Father Medical history unknown Mother Cancer Surgical History No pertinent past surgical history Social History Household Members: None Housing: Apartment Do you presently have visiting nurse or other home services: Yes Alcohol intake: current Alcohol intake frequency: holidays/special occasions only Alcohol type: beer and wine Patient Tobacco Use Status: Never used Tobacco Tobacco use type: Cigarette Cigarette Packs Per Day: 0.5 Cigarettes Per Day: 5 Years Smoked: 50 Smoked in Last 30 Days: No e-Cigarette/Vaping Use: Never Used Second Hand Smoke Exposure: No Use of substances other than those prescribed or required for medical reasons: No Advance Directives: Yes Advance Directives on File: Yes Advance Directives Date on File: 08/27/22 Nutrition Risks: No Nutritional Risk service: No Current occupational status: retired Cognitive needs: No Hearing needs: No Vision needs: No Meds Allergies Allergy/AdvReac Type Severity Reaction Status Date / Time Fish Containing Products Allergy Severe ANAPHYLAXIS Verified 12/27/22 13:23 shellfish derived Allergy Severe ANAPHYLAXIS Verified 12/27/22 13:23 Active Medications: Current Medications Acetaminophen (Acetaminophen 325 Mg Tablet) 650 mg PO Q6H PRN PRN Reason: Pain, Mild (Pain Scale 1-3) Albuterol/Ipratropium (Albuterol/Iprat 2.5/0.5mg 3 Ml Ampul.Neb) 3 ml INHALE Q6H PRN PRN Reason: wheezing Aspirin (Aspirin Enteric Coated 81 Mg Tablet.Dr) 81 mg PO DAILY [facility] Last Admin: 07/02/23 09:52 Dose: 81 mg Dextrose (Dextrose 50 % 25 Gm/50 Ml Syringe) 25 gm IVPUSH Q15M PRN; Protocol PRN Reason: per Hypoglycemia Standing Ord. Enoxaparin Sodium (Enoxaparin Sodium 40 Mg/0.4 Ml Syringe) 40 mg SUBCUT Q24H [facility] Last Admin: 07/02/23 09:52 Dose: 40 mg Glucose (Glucose Gel 15 Gm Gel..Gram.) 15 gm PO Q15M PRN; Protocol PRN Reason: per Hypoglycemia Standing Ord. Piperacillin Sod/Tazobactam (Sod 4.5 gm/ Sodium Chloride) 100 mls @ 200 mls/hr IV Q6H [facility] Last Infusion: 07/02/23 10:34 Dose: Infused Vancomycin HCl 1,500 mg/ (Sodium Chloride) 500 mls @ 333.333 mls/hr IV Q24H [facility] Lactated Ringer's (Lr) 1,000 mls @ 150 mls/hr IVCONT .Q6H40M [facility] Last Admin: 07/02/23 11:07 Dose: 150 mls/hr Insulin Human Lispro (Insulin Lispro 100 Unit/Ml 3 Ml Vial) 0 unit SUBCUT QIDACHS [facility]; Protocol Last Admin: 07/02/23 12:27 Dose: Not Given Nystatin (Nystatin Powder 15 Gm Bottle) 1 appl TOPICAL BID [facility]; Protocol Last Admin: 07/02/23 09:52 Dose: 1 appl Pharmacy Consult (Consult Rx Vancomycin Dosing) 1 each MISCELLANE DAILY PRN PRN Reason: Consult order Sodium Chloride (0.9 % Sodium Chloride Flush 3 Ml Syringe) 3 ml IVFLUSH QSHIFT [facility] Vitamin D (Cholecalciferol (Vitamin D3) 25 Mcg Tablet) 50 mcg PO DAILY [facility] Last Admin: 07/02/23 09:52 Dose: 50 mcg Home Medications Medication Instructions Recorded Confirmed Last Taken Type glipizide 10 mg tablet 10 mg PO BIDWM 07/02/23 07/02/23 07/01/23 History metformin 500 mg tablet 500 mg PO BIDWM 07/02/23 07/02/23 07/01/23 History Physical Exam 2 Vital Signs and Narrative: Vital Signs: Last Vital Signs Temp 97.7 F 07/02/23 10:02 Pulse 67 07/02/23 13:10 Resp 20 07/02/23 13:10 BP 115/46 L 07/02/23 13:10 Pulse Ox 97 07/02/23 13:10 O2 Del Method Room Air 07/02/23 13:10 BMI result Body Mass Index 25.0 Const: Other: Awake alert no acute distress Resp: Other: Clear but diminished no rales rhonchi or wheezes Cardio: Other: No S4; positive S1-S2; no S3 murmurs rubs or gallops GI: Other: Soft nontender nondistended normoactive bowel sounds : Other: Fungal rash to groin and shikha area Extrem: Other: See admission photos Results Labs 07/02/23 03:47 07/02/23 03:47 Labs: Laboratory Results - last 24 hr 07/02/23 07/02/23 07/02/23 03:31 03:47 03:59 MCV 93.0 MCH 30.7 MCHC 33.0 RDW 13.1 Plt Count 348 D MPV 9.4 Immature Gran % (Auto) 0.5 H Neut % (Auto) 86.2 H Lymph % (Auto) 7.3 L [place] % (Auto) 5.8 Eos % (Auto) 0.1 Baso % (Auto) 0.1 Lymph # (Auto) 1.1 L [place] # (Auto) 0.9 Eos # (Auto) 0.0 Baso # (Auto) 0.0 Abs Immat Gran (auto) 0.07 H Absolute Neuts (auto) 12.7 H Absolute Nucleated RBC 0.000 Nucleated RBC % (auto) 0.0 Anion Gap 16 Estim Creat Clear Calc 68.7 Estimated GFR > 60 POC Glucose 46 L* 85 Random Glucose 60 Lactic Acid Lactic Acid F/U @ 2Hr Lactic Acid F/U @ 4Hr Calcium 8.9 Total Bilirubin 0.7 AST 59 H ALT 44 H Alkaline Phosphatase 101 Total Protein 6.9 Albumin 2.8 L Urine Color Urine Appearance Urine pH Ur Specific [place] Urine Protein Urine Glucose (UA) Urine Ketones Urine Blood Urine Nitrite Ur Leukocyte Esterase Urine RBC Urine WBC Ur Squamous Epith Cells Urine Bacteria Hyaline Casts COVID-19 ([facility]ON[facility]) COVID-19 Clin Com Influenza Type A (NANCY) Influenza Type B (NANCY) Influenza A & B Note 07/02/23 07/02/23 07/02/23 04:46 04:53 06:45 MCV MCH MCHC RDW Plt Count MPV Immature Gran % (Auto) Neut % (Auto) Lymph % (Auto) [place] % (Auto) Eos % (Auto) Baso % (Auto) Lymph # (Auto) [place] # (Auto) Eos # (Auto) Baso # (Auto) Abs Immat Gran (auto) Absolute Neuts (auto) Absolute Nucleated RBC Nucleated RBC % (auto) Anion Gap Estim Creat Clear Calc Estimated GFR POC Glucose Random Glucose Lactic Acid 3.9 H* Lactic Acid F/U @ 2Hr Lactic Acid F/U @ 4Hr Calcium Total Bilirubin AST ALT Alkaline Phosphatase Total Protein Albumin Urine Color Dark Yellow Urine Appearance Turbid Urine pH 5.5 Ur Specific [place] 1.015 Urine Protein 100 (2+) H Urine Glucose (UA) Negative Urine Ketones Trace Urine Blood Moderate (2+) H Urine Nitrite Negative Ur Leukocyte Esterase Large (3+) H Urine RBC 3-5 H Urine WBC >50 H Ur Squamous Epith Cells 11-20 Urine Bacteria 4+ Hyaline Casts 3-5 COVID-19 (BREONNA) Negative COVID-19 Clin Com See Note Influenza Type A (NANCY) Negative Influenza Type B (NANCY) Negative Influenza A & B Note See Note 07/02/23 07/02/23 07/02/23 07:58 08:02 10:15 MCV MCH MCHC RDW Plt Count MPV Immature Gran % (Auto) Neut % (Auto) Lymph % (Auto) [place] % (Auto) Eos % (Auto) Baso % (Auto) Lymph # (Auto) [place] # (Auto) Eos # (Auto) Baso # (Auto) Abs Immat Gran (auto) Absolute Neuts (auto) Absolute Nucleated RBC Nucleated RBC % (auto) Anion Gap Estim Creat Clear Calc Estimated GFR POC Glucose 78 Random Glucose Lactic Acid Lactic Acid F/U @ 2Hr 3.4 H* Lactic Acid F/U @ 4Hr 1.4 Calcium Total Bilirubin AST ALT Alkaline Phosphatase Total Protein Albumin Urine Color Urine Appearance Urine pH Ur Specific [place] Urine Protein Urine Glucose (UA) Urine Ketones Urine Blood Urine Nitrite Ur Leukocyte Esterase Urine RBC Urine WBC Ur Squamous Epith Cells Urine Bacteria Hyaline Casts COVID-19 ([facility]) COVID-19 Clin Com Influenza Type A (NANCY) Influenza Type B (NANCY) Influenza A & B Note 07/02/23 12:26 MCV MCH MCHC RDW Plt Count MPV Immature Gran % (Auto) Neut % (Auto) Lymph % (Auto) [place] % (Auto) Eos % (Auto) Baso % (Auto) Lymph # (Auto) [place] # (Auto) Eos # (Auto) Baso # (Auto) Abs Immat Gran (auto) Absolute Neuts (auto) Absolute Nucleated RBC Nucleated RBC % (auto) Anion Gap Estim Creat Clear Calc Estimated GFR POC Glucose 70 Random Glucose Lactic Acid Lactic Acid F/U @ 2Hr Lactic Acid F/U @ 4Hr Calcium Total Bilirubin AST ALT Alkaline Phosphatase Total Protein Albumin Urine Color Urine Appearance Urine pH Ur Specific [place] Urine Protein Urine Glucose (UA) Urine Ketones Urine Blood Urine Nitrite Ur Leukocyte Esterase Urine RBC Urine WBC Ur Squamous Epith Cells Urine Bacteria Hyaline Casts COVID-19 ([facility]) COVID-19 Clin Com Influenza Type A (NANCY) Influenza Type B (NANCY) Influenza A & B Note Imaging Radiologist's Impressions: Impressions Chest X-Ray 07/02/23 04:45 IMPRESSION: Mild patchy right basilar opacity may reflect developing consolidation in the proper clinical setting. Foot X-Ray 07/02/23 04:45 IMPRESSION: Prominent dorsal soft tissue swelling throughout the foot. Subtle cortical erosion at the base of the fifth proximal phalanx is difficult to exclude in this setting. If there is clinical concern for osteomyelitis, further evaluation with MRI would be helpful. Head CT 07/02/23 05:45 IMPRESSION: 1. No acute intracranial pathology. 2. Hyperdense curvilinear structure along the posterior aspect of the right globe may reflect sequelae of age-indeterminate lens dislocation. Assessment and Plan (1) Cellulitis: Qualifiers: Site of cellulitis: extremity Site of cellulitis of extremity: lower extremity Laterality: left Qualified Code(s): L03.116 - Cellulitis of left lower limb Status: Acute (2) Stasis edema with ulcer of left lower extremity: Status: Acute (3) Pneumonia: Qualifiers: Pneumonia type: due to unspecified organism Status: Acute Plan 78-year-old male with history of COPD and stasis edema both lower extremities presents with a nonhealing ulcer to his left foot dorsal aspect. Patient was seen by VNA and was found on floor. Was hypoglycemic in emergency room but responded to therapies. Initial workup also consistent with questionable mild pneumonia 1. Cellulitis left lower extremity with ulcer -vancomycin/Zosyn (1) -wound care consult ordered -elevation as possible 2. Questionable early infiltrate -vancomycin/Zosyn adequate coverage -follow clinically 3. Diabetes type 2 (hypoglycemic upon arrival) -regular diet given hypoglycemia -lispro correctional scale -add back orals when appropriate Full code Lovenox Requires ongoing hospitalization for IV antibiotics to treat cellulitis of the left lower extremity with ulceration Quality Stroke Does the patient have a stroke diagnosis?: No VTE Prior VTE?: No VTE Risk Level:: Medical - moderate - high VTE Device Contraindication: Treatment Not Indicated VTE Drug Contraindication: N/A - Med Ordered
[2023-07-02 16:36] LABS: Glucose, Whole Blood 128 mg/dL (60-115)
[2023-07-02] MEDS: 0.9 % Sodium Chloride Flush 3 ML SYRINGE IVFLUSH (16:58)
--- NOTE | 2023-07-02 19:05 | HO.WOUND ---
Wound Consult: Initial 78yr old?M admitted to [facility] [place] on 07/02 - See progress notes and H&P for detailed history.? Wound consult placed for Left Leg and sacrum.? Patient agreeable to assessment and photo documentation.? Pt reports he follows with Outpt Wound Clinic - recommend pt to continue outpt follow up with wound clinic at time of discharge . Sacrum Etiology: Deep Tissue Injury ??Present on Admission Wound Bed: marroon purple nonblanchable tissue intact Drainage / Odor: None Edges: ? Irregular Valerie wound: ?MASD-IAD (Moisture Associated Skin Damage - Incontinence Associated Dermatitis) No Induration, Fluctuance or Warmth noted Pain: denies Goals of Treatment: ? Triad and foam to protect from friction and moisture Left Trochanter / Buttocks Etiology: Unstageable Pressure Injury ??Present on Admission Wound Bed: Adherent pale yellow slough Drainage / Odor: Scant sero sang noted Edges: ? linear in shape - suspect device chair related from home Valerie wound: MASD-IAD (Moisture Associated Skin Damage - Incontinence Associated Dermatitis) No Induration, Fluctuance or Warmth noted? Pain: denies Goals of Treatment: ? Triad and foam to protect from friction and moisture MASD - IAD (Moisture Associated Skin Damage - Incontinence Associated Dermatitis) - noted to groin, sctorum and perianal area - -red intact blanchable tissue with mirrored edges consistent with MASD Left Leg Etiology: ??Venous Dermatitis with Cellulitis Wound Bed: open wound on dorsal portion of foot - appears to be unroofed bulla - pink dry wound bed Drainage / Odor: None - dried to wound edges Edges: ? adherent Valerie wound: Erythema and Venous dermatitis - thick keratotic tissue - flaking in some areas revealing intact tissue - ? No Induration, Fluctuance noted Pain: REports pain and tenderness Goals of Treatment: ? Moist wound healing Recommendations: 1. Turn and Reposition every 2 hours and as needed for patient comfort.? Use pillows or wedges to support off loading positions. 2. Off Load all bony prominences with use of pillows and heel boots if needed.? Apply Preventative foams where needed. ? 3. Monitor for incontinence and moisture control, use barrier creams when needed for prevention and treatment. 4. Provide adequate and supplemental nutrition.? 5. Order or Continue low air loss mattress. 6. When applicable maintain blood glucose levels per Providers order. 7. Bilateral Lower Legs - Elevate lower legs off of surface of bed with use of pillows.? Cleanse with NS, Pat dry.? Apply vaseline to both legs, apply layer of Xeroform to open wound beds secure with ABD pad, gauze wrap and tape.? Change Daily. 8. Left Trochanter / Buttock and Sacrum - Off Load Pressure - Cleanse with PH balance spray or wipes, pat dry. ?Apply thin layer of Triad to wound bed. Do not remove all of paste between applications as this may cause further skin damage.? Cover with foam dressing to aid in off loading and protection from friction. Re-consult wound care Nurse for wound deterioration or wound changes.
[2023-07-02 20:39] LABS: Glucose, Whole Blood 137 mg/dL (60-115)
[2023-07-02] MEDS: vancomycin HCL 1,500 MG in 0.9 % Sodium Chloride 500 ML 333.33 MG IV (22:21)
[2023-07-03] MEDS: Lactated Ringers 1,000 ML 150 ML IVCONT ×3 (02:53→19:20)
[2023-07-03 03:25] VITALS: BP 100/49; PULSE 67; RESP 18; TEMP 36.4; O2SAT 94
[2023-07-03] MEDS: Piperacillin Sodium/Tazobactam 4.5 GM in 0.9 % Sodium Chloride 100 ML IV ×4 (03:32→21:44)
[2023-07-03 05:33] LABS: MANUAL DIFF FLAG NO
[2023-07-03 05:37] LABS: Basophils Percent Auto 0.1 % (0-2); Eosinophils Percent Auto 0.5 % (0-4); Hematocrit 34.7 % (42.0-52.0); Hemoglobin 11.2 g/dl (14.0-18.0); Imm Gran Abs Auto 0.02 X10*3/uL (0.00-0.03); Imm Gran Pct Auto 0.3 % (0.0-0.4); Lymphocytes Absolute Auto 0.8 X10*3/uL (1.2-4.9); Lymphocytes Percent Auto 10.4 % (20-40); Mean Corpuscular HGB Conc 32.3 g/dl (31.0-36.0); Mean Corpuscular Hemoglobin 30.7 pg (27.0-33.0); Mean Corpuscular Volume 95.1 fL (80.0-98.0); Mean Platelet Volume 9.8 fL (9.4-12.4); Monocytes Absolute Auto 0.5 X10*3/uL (0.1-1.2); Monocytes Percent Auto 6.5 % (2-11); Neutrophils Absolute Auto 6.2 x10*3/uL (2.0-8.3); Neutrophils Percent Auto 82.2 % (45-73); Platelet Count 264 X10*3/uL (160-400); Red Blood Count 3.65 X10*6/uL (4.60-5.80); Red Cell Distribution Width 13.1 % (11.0-16.0); White Blood Count 7.5 X10*3/uL (4.8-10.8)
[2023-07-03 05:50] LABS: Alanine Aminotransferase 38 U/L (0-40); Albumin Level 2.5 g/dL (3.5-5.0); Alkaline Phosphatase 70 U/L (39-117); Anion Gap 12 (12-20); Aspartate Amino Transferase 46 U/L (5-37); Bilirubin Total 0.5 mg/dL (0.0-1.0); Blood Urea Nitrogen 13 mg/dL (9-16); Calcium 8.1 mg/dL (8.4-10.2); Carbon Dioxide 25 mmol/L (22-29); Chloride 103 mmol/L (96-108); Creatinine Clr Calc Pharmacy 89.6; Estimated Glomerular Filt Rate > 60; Glucose Random 109 mg/dL (60-115); Potassium 3.7 mmol/L (3.3-5.1); Sodium 136 mmol/L (135-145); Total Protein 5.1 g/dL (6.5-8.0)
[2023-07-03 07:24] VITALS: BP 105/51; PULSE 63; RESP 16; TEMP 36.4; O2SAT 95
[2023-07-03 07:40] LABS: Glucose, Whole Blood 120 mg/dL (60-115)
[2023-07-03] MEDS: Aspirin Enteric Coated 81 MG TABLET.DR PO (08:30)
[2023-07-03] MEDS: Enoxaparin Sodium 40 MG/0.4 ML SYRINGE SUBCUT (08:30)
[2023-07-03] MEDS: Cholecalciferol (Vitamin D3) 25 MCG TABLET 50 MCG PO (08:30)
--- NOTE | 2023-07-03 08:34 | HO.PM.IMPN ---
Subjective Subjective Date of Service: 07/03/23 Interval History: No acute issues overnight. Notes minimal improvement overall. Physical Exam Vital Signs: Vital Signs: Last Vital Signs Temp 97.5 F 07/03/23 07:24 Pulse 63 07/03/23 07:24 Resp 16 07/03/23 07:24 BP 105/51 L 07/03/23 07:24 Pulse Ox 95 07/03/23 07:24 O2 Del Method Room Air 07/03/23 07:24 BMI result Body Mass Index 25.0 Objective Data Active Medications Acetaminophen (Acetaminophen 325 Mg Tablet) 650 mg PO Q6H PRN PRN Reason: Pain, Mild (Pain Scale 1-3) Albuterol/Ipratropium (Albuterol/Iprat 2.5/0.5mg 3 Ml Ampul.Neb) 3 ml INHALE Q6H PRN PRN Reason: wheezing Aspirin (Aspirin Enteric Coated 81 Mg Tablet.) 81 mg PO DAILY REPLACED BY [facility] Last Admin: 07/02/23 09:52 Dose: 81 mg Documented By: MALIK Dextrose (Dextrose 50 % 25 Gm/50 Ml Syringe) 25 gm IVPUSH Q15M PRN; Protocol PRN Reason: per Hypoglycemia Standing Ord. Enoxaparin Sodium (Enoxaparin Sodium 40 Mg/0.4 Ml Syringe) 40 mg SUBCUT Q24H REPLACED BY [facility] Last Admin: 07/02/23 09:52 Dose: 40 mg Documented By: MALIK Glucose (Glucose Gel 15 Gm Gel..Gram.) 15 gm PO Q15M PRN; Protocol PRN Reason: per Hypoglycemia Standing Ord. Piperacillin Sod/Tazobactam (Sod 4.5 gm/ Sodium Chloride) 100 mls @ 200 mls/hr IV Q6H REPLACED BY [facility] Last Infusion: 07/03/23 04:10 Dose: Infused Documented By: WALLACE Vancomycin HCl 1,500 mg/ (Sodium Chloride) 500 mls @ 333.333 mls/hr IV Q24H REPLACED BY [facility] Last Infusion: 07/02/23 23:58 Dose: Infused Documented By: WALLACE Lactated Ringer's (Lr) 1,000 mls @ 150 mls/hr IVCONT .Q6H40M REPLACED BY [facility] Last Admin: 07/03/23 07:23 Dose: Not Given Documented By: LALO Non-Admin Reason: IV Running Insulin Human Lispro (Insulin Lispro 100 Unit/Ml 3 Ml Vial) 0 unit SUBCUT QIDACHS REPLACED BY [facility]; Protocol Last Admin: 07/03/23 07:43 Dose: Not Given Documented By: LALO Non-Admin Reason: No Insulin Coverage Nystatin (Nystatin Powder 15 Gm Bottle) 1 appl TOPICAL BID REPLACED BY [facility]; Protocol Last Admin: 07/02/23 21:56 Dose: 1 appl Documented By: WALLACE Pharmacy Consult (Consult Rx Vancomycin Dosing) 1 each MISCELLANE DAILY PRN PRN Reason: Consult order Sodium Chloride (0.9 % Sodium Chloride Flush 3 Ml Syringe) 3 ml IVFLUSH QSHIFT REPLACED BY [facility] Last Admin: 07/03/23 07:23 Dose: Not Given Documented By: LALO Non-Admin Reason: IV Running Vitamin D (Cholecalciferol (Vitamin D3) 25 Mcg Tablet) 50 mcg PO DAILY REPLACED BY [facility] Last Admin: 07/02/23 09:52 Dose: 50 mcg Documented By: MALIK Labs 07/03/23 04:58 07/03/23 04:58 Labs: Laboratory Results - last 24 hr 07/02/23 07/02/23 07/02/23 10:15 12:26 16:14 MCV MCH MCHC RDW Plt Count MPV Immature Gran % (Auto) Neut % (Auto) Lymph % (Auto) [place] % (Auto) Eos % (Auto) Baso % (Auto) Lymph # (Auto) [place] # (Auto) Eos # (Auto) Baso # (Auto) Abs Immat Gran (auto) Absolute Neuts (auto) Absolute Nucleated RBC Nucleated RBC % (auto) Anion Gap Estim Creat Clear Calc Estimated GFR POC Glucose 70 128 H Random Glucose Lactic Acid F/U @ 4Hr 1.4 Calcium Total Bilirubin AST ALT Alkaline Phosphatase Total Protein Albumin 07/02/23 07/03/23 07/03/23 20:24 04:58 07:28 MCV 95.1 MCH 30.7 MCHC 32.3 RDW 13.1 Plt Count 264 MPV 9.8 Immature Gran % (Auto) 0.3 Neut % (Auto) 82.2 H Lymph % (Auto) 10.4 L [place] % (Auto) 6.5 Eos % (Auto) 0.5 Baso % (Auto) 0.1 Lymph # (Auto) 0.8 L [place] # (Auto) 0.5 Eos # (Auto) 0.0 Baso # (Auto) 0.0 Abs Immat Gran (auto) 0.02 Absolute Neuts (auto) 6.2 Absolute Nucleated RBC 0.000 Nucleated RBC % (auto) 0.0 Anion Gap 12 Estim Creat Clear Calc 89.6 Estimated GFR > 60 POC Glucose 137 H 120 H Random Glucose 109 Lactic Acid F/U @ 4Hr Calcium 8.1 L D Total Bilirubin 0.5 AST 46 H ALT 38 Alkaline Phosphatase 70 Total Protein 5.1 L Albumin 2.5 L Microbiology Microbiology Results: Microbiology 07/02/23 05:00 Blood Culture - Preliminary Blood - Venous No growth after 24 hours. 07/02/23 04:53 Blood Culture - Preliminary Blood - Venous No growth after 24 hours. Quality Stroke Does the patient have a stroke diagnosis?: No VTE Prior VTE?: No VTE Risk Level:: Medical - moderate - high VTE Device Contraindication: Treatment Not Indicated VTE Drug Contraindication: N/A - Med Ordered
[2023-07-03] MEDS: Nystatin Powder 15 GM BOTTLE 1 APPL TOPICAL ×2 (08:45→20:36)
[2023-07-03 09:34] VITALS: BMI 25.0
--- NOTE | 2023-07-03 09:55 | MHC.CLN ---
Addendum entered by Tara Ochoa RD 07/03/23 14:01: PATIENT DOES NOT WANT ENSURE SUPPLEMENT. ENSURE MAX BID DISCONTINUED. Original Note: NUTRITION REGULAR DIET DUE TO HYPOGLYCEMIC UPON ARRIVAL TO HOSPITAL. INCREASED NUTRITION NEEDS, PROTEIN, DUE TO MULTIPLE AREAS OF IMPAIRED SKIN. ADDING ENSURE MAX PROTEIN BID (300 KCALS/60 G PROTEIN) TO PROMOTE SKIN INTEGRITY. REVIEW OF WEIGHT HX SHOWS SIGNIFICANT WEIGHT LOSS X 7 MONTHS, -17%. FOLLOW FOR INTAKE AND SKIN INTEGRITY. SEE CLINICAL NUTRITION ASSESSMENT 07/03/23.
--- NOTE | 2023-07-03 10:18 | MHC.CM.PN ---
pt lives alone has are [facility] and [facility] will need amb home pt does not want to go to rehab
[2023-07-03 11:20] LABS: Glucose, Whole Blood 145 mg/dL (60-115)
--- NOTE | 2023-07-03 11:46 | P.PNIM_ITS ---
Subjective Subjective Date of Service: 07/03/23 Interval History: Notes improvement overnight. Voices no complaints of pain Review of Systems Denies chest pain Denies shortness of breath Denies nausea vomiting diarrhea Denies fever chills Physical Exam 2 Vital Signs: Vital Signs: Last Vital Signs Temp 97.5 F 07/03/23 07:24 Pulse 63 07/03/23 07:24 Resp 16 07/03/23 07:24 BP 105/51 L 07/03/23 07:24 Pulse Ox 95 07/03/23 07:24 O2 Del Method Room Air 07/03/23 07:24 BMI result Body Mass Index 25.0 Const: Other: Awake alert no acute distress Resp: Other: Clear but diminished no rales rhonchi or wheezes Cardio: Other: No S4; positive S1-S2; no S3 murmurs rubs or gallops GI: Other: Soft nontender nondistended normoactive bowel sounds : Other: Fungal rash to groin and shikha area Extrem: Other: See admission photos Objective Data Active Medications Acetaminophen (Acetaminophen 325 Mg Tablet) 650 mg PO Q6H PRN PRN Reason: Pain, Mild (Pain Scale 1-3) Albuterol/Ipratropium (Albuterol/Iprat 2.5/0.5mg 3 Ml Ampul.Neb) 3 ml INHALE Q6H PRN PRN Reason: wheezing Aspirin (Aspirin Enteric Coated 81 Mg Tablet.Dr) 81 mg PO DAILY [facility] Last Admin: 07/03/23 08:30 Dose: 81 mg Documented By: LALO Dextrose (Dextrose 50 % 25 Gm/50 Ml Syringe) 25 gm IVPUSH Q15M PRN; Protocol PRN Reason: per Hypoglycemia Standing Ord. Enoxaparin Sodium (Enoxaparin Sodium 40 Mg/0.4 Ml Syringe) 40 mg SUBCUT Q24H [facility] Last Admin: 07/03/23 08:30 Dose: 40 mg Documented By: LALO Glucose (Glucose Gel 15 Gm Gel..Gram.) 15 gm PO Q15M PRN; Protocol PRN Reason: per Hypoglycemia Standing Ord. Piperacillin Sod/Tazobactam (Sod 4.5 gm/ Sodium Chloride) 100 mls @ 200 mls/hr IV Q6H [facility] Last Infusion: 07/03/23 09:02 Dose: Infused Documented By: LALO Vancomycin HCl 1,500 mg/ (Sodium Chloride) 500 mls @ 333.333 mls/hr IV Q24H [facility] Last Infusion: 07/02/23 23:58 Dose: Infused Documented By: WALLACE Lactated Ringer's (Lr) 1,000 mls @ 150 mls/hr IVCONT .Q6H40M [facility] Last Infusion: 07/03/23 11:40 Dose: Infused Documented By: LALO Insulin Human Lispro (Insulin Lispro 100 Unit/Ml 3 Ml Vial) 0 unit SUBCUT QIDACHS [facility]; Protocol Last Admin: 07/03/23 11:24 Dose: Not Given Documented By: LALO Non-Admin Reason: No Insulin Coverage Nystatin (Nystatin Powder 15 Gm Bottle) 1 appl TOPICAL BID [facility]; Protocol Last Admin: 07/03/23 08:45 Dose: 1 appl Documented By: LALO Pharmacy Consult (Consult Rx Vancomycin Dosing) 1 each MISCELLANE DAILY PRN PRN Reason: Consult order Sodium Chloride (0.9 % Sodium Chloride Flush 3 Ml Syringe) 3 ml IVFLUSH QSHIFT [facility] Last Admin: 07/03/23 07:23 Dose: Not Given Documented By: LALO Non-Admin Reason: IV Running Vitamin D (Cholecalciferol (Vitamin D3) 25 Mcg Tablet) 50 mcg PO DAILY [facility] Last Admin: 07/03/23 08:30 Dose: 50 mcg Documented By: LALO Labs 07/03/23 04:58 07/03/23 04:58 Labs: Laboratory Results - last 24 hr 07/02/23 07/02/23 07/02/23 12:26 16:14 20:24 MCV MCH MCHC RDW Plt Count MPV Immature Gran % (Auto) Neut % (Auto) Lymph % (Auto) [place] % (Auto) Eos % (Auto) Baso % (Auto) Lymph # (Auto) [place] # (Auto) Eos # (Auto) Baso # (Auto) Abs Immat Gran (auto) Absolute Neuts (auto) Absolute Nucleated RBC Nucleated RBC % (auto) Anion Gap Estim Creat Clear Calc Estimated GFR POC Glucose 70 128 H 137 H Random Glucose Calcium Total Bilirubin AST ALT Alkaline Phosphatase Total Protein Albumin 07/03/23 07/03/23 07/03/23 04:58 07:28 11:07 MCV 95.1 MCH 30.7 MCHC 32.3 RDW 13.1 Plt Count 264 MPV 9.8 Immature Gran % (Auto) 0.3 Neut % (Auto) 82.2 H Lymph % (Auto) 10.4 L [place] % (Auto) 6.5 Eos % (Auto) 0.5 Baso % (Auto) 0.1 Lymph # (Auto) 0.8 L [place] # (Auto) 0.5 Eos # (Auto) 0.0 Baso # (Auto) 0.0 Abs Immat Gran (auto) 0.02 Absolute Neuts (auto) 6.2 Absolute Nucleated RBC 0.000 Nucleated RBC % (auto) 0.0 Anion Gap 12 Estim Creat Clear Calc 89.6 Estimated GFR > 60 POC Glucose 120 H 145 H Random Glucose 109 Calcium 8.1 L D Total Bilirubin 0.5 AST 46 H ALT 38 Alkaline Phosphatase 70 Total Protein 5.1 L Albumin 2.5 L Microbiology Microbiology Results: Microbiology 07/02/23 05:00 Blood Culture - Preliminary Blood - Venous No growth after 24 hours. 07/02/23 04:53 Blood Culture - Preliminary Blood - Venous No growth after 24 hours. Assessment and Plan (1) Cellulitis: Status: Acute (2) Pneumonia: Status: Acute (3) Type 2 diabetes mellitus with diabetic neuropathy, unspecified: Status: Acute Plan 78-year-old male with history of COPD and stasis edema both lower extremities presents with a nonhealing ulcer to his left foot dorsal aspect. Patient was seen by VNA and was found on floor. Was hypoglycemic in emergency room but responded to therapies. Initial workup also consistent with questionable mild pneumonia 1. Cellulitis left lower extremity with ulcer -vancomycin/Zosyn (2) -wound care consult ordered -blood cultures thus far negative 2. Questionable early infiltrate -vancomycin/Zosyn adequate coverage -repeat chest x-ray a.m. 07/04 -follow clinically 3.Diabetes type 2 (hypoglycemic upon arrival)... All sugars have been less than 150 -regular diet given hypoglycemia -lispro correctional scale -add back orals when appropriate... All sugars have been less than 150 Full code Lovenox Requires ongoing hospitalization for IV antibiotics to treat cellulitis of the left lower extremity with ulceration Quality Stroke Does the patient have a stroke diagnosis?: No VTE Prior VTE?: No VTE Risk Level:: Medical - moderate - high VTE Device Contraindication: Treatment Not Indicated VTE Drug Contraindication: N/A - Med Ordered
[2023-07-03 15:31] VITALS: BP 102/52; PULSE 66; RESP 18; TEMP 36.1; O2SAT 95
--- NOTE | 2023-07-03 15:35 | MHC.CM.PN ---
[facility] accepted pt
--- NOTE | 2023-07-03 15:41 | MHC.CM.PN ---
[facility] accepted pt
[2023-07-03 16:05] LABS: Glucose, Whole Blood 144 mg/dL (60-115)
--- NOTE | 2023-07-03 16:05 | MHC.CM.PN ---
[facility] will not accept pt back as he is non compliant vna referrals made
[2023-07-03 18:58] VITALS: BP 118/64; PULSE 60; RESP 17; TEMP 36.4; O2SAT 97
[2023-07-03 20:06] LABS: Glucose, Whole Blood 174 mg/dL (60-115)
[2023-07-03] MEDS: Insulin Lispro 100 UNIT/ML 3 ML VIAL SUBCUT (20:36)
[2023-07-03 21:25] LABS: Vancomycin Random 11.6 mcg/mL (15-20)
[2023-07-03] MEDS: vancomycin HCL 1,500 MG in 0.9 % Sodium Chloride 500 ML 333.33 MG IV (22:15)
[2023-07-04] MEDS: Acetaminophen 325 MG TABLET 650 MG PO ×2 (01:43→07:44)
[2023-07-04 03:35] VITALS: BP 116/56; PULSE 59; RESP 16; TEMP 36.3; O2SAT 95
[2023-07-04] MEDS: Lactated Ringers 1,000 ML 150 ML IVCONT (03:42)
[2023-07-04] MEDS: Piperacillin Sodium/Tazobactam 4.5 GM in 0.9 % Sodium Chloride 100 ML IV ×2 (03:42→10:25)
[2023-07-04 05:55] LABS: MANUAL DIFF FLAG NO
[2023-07-04 05:57] LABS: Basophils Percent Auto 0.3 % (0-2); Eosinophils Absolute Auto 0.1 X10*3/uL (0.0-0.4); Eosinophils Percent Auto 0.9 % (0-4); Hematocrit 36.2 % (42.0-52.0); Hemoglobin 11.8 g/dl (14.0-18.0); Imm Gran Abs Auto 0.05 X10*3/uL (0.00-0.03); Imm Gran Pct Auto 0.7 % (0.0-0.4); Lymphocytes Absolute Auto 1.3 X10*3/uL (1.2-4.9); Lymphocytes Percent Auto 17.7 % (20-40); Mean Corpuscular HGB Conc 32.6 g/dl (31.0-36.0); Mean Platelet Volume 9.7 fL (9.4-12.4); Monocytes Absolute Auto 0.5 X10*3/uL (0.1-1.2); Monocytes Percent Auto 7.2 % (2-11); Neutrophils Absolute Auto 5.5 x10*3/uL (2.0-8.3); Neutrophils Percent Auto 73.2 % (45-73); Platelet Count 291 X10*3/uL (160-400); Red Blood Count 3.81 X10*6/uL (4.60-5.80); Red Cell Distribution Width 13.2 % (11.0-16.0); White Blood Count 7.5 X10*3/uL (4.8-10.8)
[2023-07-04 06:12] LABS: Alanine Aminotransferase 38 U/L (0-40); Albumin Level 2.5 g/dL (3.5-5.0); Alkaline Phosphatase 74 U/L (39-117); Anion Gap 11 (12-20); Aspartate Amino Transferase 36 U/L (5-37); Bilirubin Total 0.5 mg/dL (0.0-1.0); Blood Urea Nitrogen 8 mg/dL (9-16); Calcium 8.2 mg/dL (8.4-10.2); Carbon Dioxide 25 mmol/L (22-29); Chloride 107 mmol/L (96-108); Estimated Glomerular Filt Rate > 60; Glucose Random 119 mg/dL (60-115); Potassium 3.5 mmol/L (3.3-5.1); Sodium 139 mmol/L (135-145); Total Protein 5.4 g/dL (6.5-8.0)
[2023-07-04 07:18] VITALS: BP 128/64; PULSE 65; RESP 16; TEMP 36.1; O2SAT 94
[2023-07-04 07:25] LABS: Glucose, Whole Blood 119 mg/dL (60-115)
[2023-07-04] MEDS: Cholecalciferol (Vitamin D3) 25 MCG TABLET 50 MCG PO (07:44)
[2023-07-04] MEDS: Aspirin Enteric Coated 81 MG TABLET.DR PO (07:44)
[2023-07-04] MEDS: Nystatin Powder 15 GM BOTTLE 1 APPL TOPICAL ×2 (07:45→21:20)
[2023-07-04 08:04] LABS: C Reactive Protein 8.25 mg/dL (< or = 0.50)
[2023-07-04 08:55] LABS: Erythrocyte Sedimentation Rate 49 MM/HR (0-15)
[2023-07-04] MEDS: Enoxaparin Sodium 40 MG/0.4 ML SYRINGE SUBCUT (10:24)
[2023-07-04 11:12] LABS: Glucose, Whole Blood 177 mg/dL (60-115)
--- NOTE | 2023-07-04 11:39 | HO.WOUND ---
Wound Consult: Chart Review - Follow up 78yr old?M admitted to [facility] on 07/02 - See progress notes and H&P for detailed history.? Wound consult placed for Left Leg and sacrum.?Contacted by Jef Doty with dressing orders for discharge and VNA services to carry out. Chart review completed - wounds not assessed today by this engineering writer however the orders have been updated to reflect appropriate outpt topical care orders. Pt reports he follows with Outpt Wound Clinic - recommend pt to continue outpt follow up with wound clinic at time of discharge . Sacrum Goals of Treatment: ? Triad and foam to protect from friction and moisture Left Trochanter / Buttocks Etiology: Unstageable Pressure Injury ??Present on Admission Goals of Treatment: ? Triad and foam to protect from friction and moisture MASD - IAD (Moisture Associated Skin Damage - Incontinence Associated Dermatitis) - noted to groin, sctorum and perianal area - -red intact blanchable tissue with mirrored edges consistent with MASD Left Leg Etiology: ??Venous Dermatitis with Cellulitis Goals of Treatment: ? Moist wound healing Topical recommendations for discharge: 1. Off Load all bony prominences with use of pillows and chair cushions.? 2. Monitor for incontinence and moisture control, use barrier creams when needed for prevention and treatment.? 7. Bilateral Lower Legs - Elevate lower legs off of surface of bed with use of pillows when in bed.? Cleanse with PH balanced soap, rinse well, Pat dry.? Apply vaseline or moisturizing ointment to both legs, apply Collagen Hydrogel wound gel to open wound beds, cover with gauze secure with ABD pad, gauze wrap and tape.? Change Every other day. 8. Left Trochanter / Buttock and Sacrum - Off Load Pressure - Cleanse with PH balance spray or wipes, pat dry. ?Apply thin layer of Triad to wound bed. Do not remove all of paste between applications as this may cause further skin damage.? Cover with foam dressing to aid in off loading and protection from friction. Change Every other day and PRN for soiling. Pt reports he follows with Outpt Wound Clinic - recommend pt to continue outpt follow up with wound clinic at time of discharge . Recommend follow up out patient Wound Clinic at [address] [place] [id number] and to call for an appointment at time of discharge. [phone].?
[2023-07-04] MEDS: gadobutroL 10 ML VIAL IVPUSH (13:37)
--- NOTE | 2023-07-04 13:39 | P.PNIM_ITS ---
Subjective Subjective Date of Service: 07/04/23 Interval History: seen and examined this morning follow up for LLE cellulitis, ulcer no fever or chills wants to go home Review of Systems Review of Systems: Yes all other systems are reviewed and are negative Constitutional Constitutional: Denies chills and Denies fever(s) Cardiovascular Cardiovascular: Denies chest pain and Denies dyspnea Respiratory Respiratory: Denies dyspnea Gastrointestinal Gastrointestinal: Denies abdominal pain Physical Exam 2 Vital Signs: Vital Signs: Last Vital Signs Temp 97 F 07/04/23 07:18 Pulse 65 07/04/23 07:18 Resp 16 07/04/23 07:18 BP 128/64 07/04/23 07:18 Pulse Ox 94 07/04/23 07:18 O2 Del Method Room Air 07/04/23 07:18 BMI result Body Mass Index 25.0 Const: General: cooperative, comfortable, no acute distress, alert and awake Nutritional Appearance: average body habitus Orientation/consciousness: p atient oriented x3 Resp: Effort & Inspection: normal respiratory effort, able to speak in complete sentences, no respiratory distress and no use of accessory muscles Cardio: Rate: regular rate GI: Inspection: No distended Palpation (GI): Soft to palpation and nontender Skin: Other: left leg wrapped in clean dry dressing Neuro: General: patient oriented x3, moves all extremities and CN's II-XI intact bilaterally Objective Data Active Medications Acetaminophen (Acetaminophen 325 Mg Tablet) 650 mg PO Q6H PRN PRN Reason: Pain, Mild (Pain Scale 1-3) Last Admin: 07/04/23 07:44 Dose: 650 mg Documented By: TIM Albuterol/Ipratropium (Albuterol/Iprat 2.5/0.5mg 3 Ml Ampul.Neb) 3 ml INHALE Q6H PRN PRN Reason: wheezing Aspirin (Aspirin Enteric Coated 81 Mg Tablet.) 81 mg PO DAILY [facility] Last Admin: 07/04/23 07:44 Dose: 81 mg Documented By: TIM Dextrose (Dextrose 50 % 25 Gm/50 Ml Syringe) 25 gm IVPUSH Q15M PRN; Protocol PRN Reason: per Hypoglycemia Standing Ord. Enoxaparin Sodium (Enoxaparin Sodium 40 Mg/0.4 Ml Syringe) 40 mg SUBCUT Q24H [facility] Last Admin: 07/04/23 10:24 Dose: 40 mg Documented By: TIM Glucose (Glucose Gel 15 Gm Gel..Gram.) 15 gm PO Q15M PRN; Protocol PRN Reason: per Hypoglycemia Standing Ord. Piperacillin Sod/Tazobactam (Sod 4.5 gm/ Sodium Chloride) 100 mls @ 200 mls/hr IV Q6H [facility] Last Infusion: 07/04/23 11:00 Dose: Infused Documented By: TIM Vancomycin HCl 1,500 mg/ (Sodium Chloride) 500 mls @ 333.333 mls/hr IV Q24H [facility] Last Infusion: 07/04/23 00:14 Dose: Infused Documented By: RONALRISMica Insulin Human Lispro (Insulin Lispro 100 Unit/Ml 3 Ml Vial) 0 unit SUBCUT QIDACHS [facility]; Protocol Last Admin: 07/04/23 07:28 Dose: Not Given Documented By: TIM Non-Admin Reason: No Insulin Coverage Nystatin (Nystatin Powder 15 Gm Bottle) 1 appl TOPICAL BID [facility]; Protocol Last Admin: 07/04/23 07:45 Dose: 1 appl Documented By: TIM Pharmacy Consult (Consult Rx Vancomycin Dosing) 1 each MISCELLANE DAILY PRN PRN Reason: Consult order Sodium Chloride (0.9 % Sodium Chloride Flush 3 Ml Syringe) 3 ml IVFLUSH QSHIFT [facility] Last Admin: 07/04/23 07:19 Dose: Not Given Documented By: TIM Non-Admin Reason: No Insulin Coverage Vitamin D (Cholecalciferol (Vitamin D3) 25 Mcg Tablet) 50 mcg PO DAILY [facility] Last Admin: 07/04/23 07:44 Dose: 50 mcg Documented By: TIM Labs 07/04/23 05:24 07/04/23 05:24 Labs: Laboratory Results - last 24 hr 07/03/23 07/03/23 07/03/23 15:58 19:59 20:52 MCV MCH MCHC RDW Plt Count MPV Immature Gran % (Auto) Neut % (Auto) Lymph % (Auto) [place] % (Auto) Eos % (Auto) Baso % (Auto) Lymph # (Auto) [place] # (Auto) Eos # (Auto) Baso # (Auto) Abs Immat Gran (auto) Absolute Neuts (auto) Absolute Nucleated RBC Nucleated RBC % (auto) ESR Anion Gap Estim Creat Clear Calc Estimated GFR POC Glucose 144 H 174 H Random Glucose Calcium Total Bilirubin AST ALT Alkaline Phosphatase C-Reactive Protein Total Protein Albumin Random Vancomycin 11.6 L 07/04/23 07/04/23 07/04/23 05:24 07:21 11:03 MCV 95.0 MCH 31.0 MCHC 32.6 RDW 13.2 Plt Count 291 MPV 9.7 Immature Gran % (Auto) 0.7 H Neut % (Auto) 73.2 H Lymph % (Auto) 17.7 L [place] % (Auto) 7.2 Eos % (Auto) 0.9 Baso % (Auto) 0.3 Lymph # (Auto) 1.3 [place] # (Auto) 0.5 Eos # (Auto) 0.1 Baso # (Auto) 0.0 Abs Immat Gran (auto) 0.05 H Absolute Neuts (auto) 5.5 Absolute Nucleated RBC 0.000 Nucleated RBC % (auto) 0.0 ESR 49 H Anion Gap 11 L Estim Creat Clear Calc 98.0 Estimated GFR > 60 POC Glucose 119 H 177 H Random Glucose 119 H Calcium 8.2 L Total Bilirubin 0.5 AST 36 ALT 38 Alkaline Phosphatase 74 C-Reactive Protein 8.25 H Total Protein 5.4 L Albumin 2.5 L Random Vancomycin Microbiology Microbiology Results: Microbiology 07/02/23 07:58 Urine Culture - Final Urine clean catch - Urine bauman top Klebsiella pneumoniae 07/02/23 05:00 Blood Culture - Preliminary Blood - Venous No growth after 48 hours. 07/02/23 04:53 Blood Culture - Preliminary Blood - Venous No growth after 48 hours. Assessment and Plan (1) Stasis edema with ulcer of left lower extremity: Status: Acute (2) Type 2 diabetes mellitus with diabetic neuropathy, unspecified: Status: Acute Plan 78-year-old male with history of COPD and stasis edema both lower extremities presents with a nonhealing ulcer to his left foot dorsal aspect. Patient was seen by VNA and was found on floor. Was hypoglycemic in emergency room but responded to therapies. Initial workup also consistent with questionable mild pneumonia Cellulitis left lower extremity with ulcer plain film xray can't exclude osteo, will order MRI continue vancomycin/Zosyn, started 07/02 seen by wound care nurse - see note for full wound recs blood cultures negative continue outpatient follow up with wound care clinic Questionable early infiltrate vancomycin/Zosyn as above no respiratory symptoms, not requiring oxygen UTI urine culture growing klebsiella pt denies symptoms on antibiotics for above Diabetes type 2 (hypoglycemic upon arrival)... All sugars have been less than 150 glipizide and metformin on hold check Hba1c -regular diet given hypoglycemia -lispro correctional scale -add back orals when appropriate... All sugars have been less than 150 acute lactic acidosis on admission likely type 2 due to metformin Full code Lovenox Requires ongoing hospitalization for IV antibiotics to treat cellulitis of the left lower extremity with ulceration Quality Stroke Does the patient have a stroke diagnosis?: No VTE Prior VTE?: No VTE Risk Level:: Medical - moderate - high VTE Device Contraindication: Treatment Not Indicated VTE Drug Contraindication: N/A - Med Ordered
[2023-07-04] MEDS: Insulin Lispro 100 UNIT/ML 3 ML VIAL SUBCUT ×2 (13:45→16:29)
[2023-07-04 14:14] LABS: Estimated Average Glucose 97 mg/dL
--- NOTE | 2023-07-04 15:52 | HO.WOUND ---
Wound Consult: Initial 78yr old F? admitted to [facility] on - See progress notes and H&P for detailed history.? Wound consult placed for Right Calf and Sacrum - POA.? Patient agreeable to assessment and photo documentation.? Pt reports the legs are a result of her swelling - she is noted for venous dermatitis with with keratotic flaking tissue revealing intact skin. the posterior wound is in fact resurfaced it is fragile and should be protected but is currently intact - recommend light barrier cream application and foam dressing to protect from friction as it is the posterior side of her leg with a lot of friction while in bed. The sacrum was assessed and reveals intact red pink blanchable tissue - no open wounds noted. MASD (Moisture associated Skin DAmage) noted. Sacrum - red pink intact tissue remains blanchable throughout - incontinence at times - foam dressing in place. Bilateral Lower Legs Right Posterior calf - resurfaced tissue Venous dermatitis with recent history of swelling Recommendations: 1. Turn and Reposition every 2 hours and as needed for patient comfort.? Use pillows or wedges to support off loading positions. 2. Off Load all bony prominences with use of pillows and heel boots if needed.? Apply Preventative foams where needed. ? 3. Monitor for incontinence and moisture control, use barrier creams when needed for prevention and treatment. 4. Provide adequate and supplemental nutrition.? 5. Order low air loss mattress. 6. When applicable maintain blood glucose levels per Providers order. 7. Sacrum - Off Load Pressure - Apply sacral foam dressing peel back and assess Q Shift and change every 3 days and PRN. 8. Bilateral Lower Legs - Elevate lower legs off of surface of bed with use of pillows.? Cleanse with NS, Pat dry.? Apply vaseline to both legs. To newly resurfaced tissue of right calf apply thin layer of barrier cream covered with foam dressing. Change every other day. Re-consult wound care Nurse for wound deterioration or wound changes.
[2023-07-04 16:00] VITALS: BP 116/56; PULSE 70; RESP 16; TEMP 36.7; O2SAT 95
[2023-07-04 16:06] LABS: Glucose, Whole Blood 176 mg/dL (60-115)
[2023-07-04] MEDS: oxyCODONE HCl Immed Release 5 MG TABLET PO (16:20)
[2023-07-04] MEDS: 0.9 % Sodium Chloride Flush 3 ML SYRINGE IVFLUSH (16:21)
--- NOTE | 2023-07-04 16:58 | PC.NURSE ---
Addendum entered by Samantha Mckeon, RN 07/04/23 18:25: 1800 t/w asked the patient if he would now let me or another RN start a new IV but pt is still refusing, [facility] updated Original Note: when attempting to hang 1600 IV zosyn patients IV began leaking, pt refusing new IV to be started at this time, [facility] aware
[2023-07-04 19:11] VITALS: BP 129/60; PULSE 66; RESP 18; TEMP 36.4; O2SAT 97
[2023-07-04 20:12] LABS: Glucose, Whole Blood 110 mg/dL (60-115)
--- NOTE | 2023-07-04 21:24 | PC.NURSE ---
pt continues to refuse to have an IV started for IV antibiotics.
[2023-07-04 21:34] LABS: Vancomycin Random 12.5 mcg/mL (15-20)
--- NOTE | 2023-07-04 21:50 | HE.PHANOTE ---
VANCO DOSING BASED ON SCR AND TROUGH OF 12.5, DOSE INCREASED TO 1000 Q12H, NEXT LEVEL AT 21:00 07/05
[2023-07-05] MEDS: oxyCODONE HCl Immed Release 5 MG TABLET PO ×2 (00:26→09:40)
[2023-07-05 03:03] VITALS: BP 111/57; PULSE 69; RESP 18; TEMP 36.2; O2SAT 94
[2023-07-05 06:50] LABS: MANUAL DIFF FLAG NO
[2023-07-05 06:53] LABS: Basophils Percent Auto 0.2 % (0-2); Eosinophils Absolute Auto 0.1 X10*3/uL (0.0-0.4); Eosinophils Percent Auto 0.6 % (0-4); Hematocrit 37.9 % (42.0-52.0); Hemoglobin 12.3 g/dl (14.0-18.0); Imm Gran Abs Auto 0.04 X10*3/uL (0.00-0.03); Imm Gran Pct Auto 0.5 % (0.0-0.4); Lymphocytes Absolute Auto 1.6 X10*3/uL (1.2-4.9); Lymphocytes Percent Auto 19.7 % (20-40); Mean Corpuscular HGB Conc 32.5 g/dl (31.0-36.0); Mean Corpuscular Hemoglobin 30.8 pg (27.0-33.0); Mean Corpuscular Volume 94.8 fL (80.0-98.0); Mean Platelet Volume 9.8 fL (9.4-12.4); Monocytes Absolute Auto 0.6 X10*3/uL (0.1-1.2); Monocytes Percent Auto 7.5 % (2-11); Neutrophils Absolute Auto 5.7 x10*3/uL (2.0-8.3); Neutrophils Percent Auto 71.5 % (45-73); Platelet Count 308 X10*3/uL (160-400); Red Cell Distribution Width 13.1 % (11.0-16.0)
[2023-07-05 07:09] LABS: Alanine Aminotransferase 42 U/L (0-40); Albumin Level 2.6 g/dL (3.5-5.0); Alkaline Phosphatase 73 U/L (39-117); Anion Gap 12 (12-20); Aspartate Amino Transferase 33 U/L (5-37); Bilirubin Total 0.4 mg/dL (0.0-1.0); Blood Urea Nitrogen 5 mg/dL (9-16); Calcium 8.2 mg/dL (8.4-10.2); Carbon Dioxide 26 mmol/L (22-29); Chloride 105 mmol/L (96-108); Creatinine Clr Calc Pharmacy 96.7; Estimated Glomerular Filt Rate > 60; Glucose Random 111 mg/dL (60-115); Potassium 3.4 mmol/L (3.3-5.1); Sodium 140 mmol/L (135-145); Total Protein 5.6 g/dL (6.5-8.0)
[2023-07-05 07:20] VITALS: BP 119/58; PULSE 68; RESP 20; TEMP 36.4; O2SAT 96
[2023-07-05 07:33] LABS: Glucose, Whole Blood 122 mg/dL (60-115)
--- NOTE | 2023-07-05 09:05 | MHC.CLN ---
F/U DIET=REGULAR. DOES NOT WANT NUTRITIONAL SUPPLEMENTS. INTAKE VARIABLE WITH MOST MEALS 75-100%. MULTIPLE AREAS OF IMPAIRED SKIN INCLUDING DTI TO SACRUM AND UNSTAGEABLE AREA TO LEFT BUTTOCK. FOLLOW FOR INTAKE AND SKIN INTEGRITY.
[2023-07-05] MEDS: Aspirin Enteric Coated 81 MG TABLET.DR PO (09:07)
[2023-07-05] MEDS: Enoxaparin Sodium 40 MG/0.4 ML SYRINGE SUBCUT (09:07)
[2023-07-05] MEDS: Cholecalciferol (Vitamin D3) 25 MCG TABLET 50 MCG PO (09:07)
[2023-07-05] MEDS: Nystatin Powder 15 GM BOTTLE 1 APPL TOPICAL (09:11)
[2023-07-05] MEDS: Acetaminophen 325 MG TABLET 650 MG PO (09:40)
--- NOTE | 2023-07-05 10:44 | MHC.CM.PN ---
EMR reviewed. Per MD rounds patient is medically cleared for dc home with new [facility] for QOD dressing changes. Dressing will be changed today prior to dc. BLS transportation booked for 12:30pm. RN, PA, [facility] and patient aware. IMM was delivered this morning.
--- NOTE | 2023-07-05 11:08 | PM.DS ---
DS: Providers Provider Date of Service: 07/05/23 Date of admission: 07/02/23 09:20 Date of discharge: 07/05/23 Primary care physician: Billy Longoria MD Consults: 07/02/23 16:18 Consult to Wound Care Routine Reason for consultation: cellulitis to left leg, pressure injry to sacrum Has provider been notified: Yes [facility] Jeannie Wynn DS: Diagnosis Discharge Diagnosis (1) Stasis edema with ulcer of left lower extremity: Status: Acute (2) Type 2 diabetes mellitus with diabetic neuropathy, unspecified: Status: Acute DS: Summary Hospital Course Hospital Course: From H&P on the day of admission 78 years old with history of COPD stasis edema of both lower extremities with ulceration on the left foot lives alone with poor hygiene when arrived does have [facility]NA coming to his house who does the dressing off his feet also does have TELETYPES[employer] coming to his home but patient is mostly wheelchair-bound status and pivot to bed and wheelchair apparently patient was on the bed trying to get water lost balance and fell down without any significant injuries no head injury EMS at patient had a head strike but patient denied any on arrival patient POC was 50 EMS gave him 1 dose of oral glucose rechecked POC was 55 on arrival patient POC was 46 patient take metformin and glipizide no insulin use patient does have chronic stasis ulcer on the left foot . Admit for treatment of same Cellulitis left lower extremity associated with diabetes plain film xray can't exclude osteo, MRI negative for osteo. He was Treated vancomycin/Zosyn. He was seen by the wound care nurse - see note for full wound recs . blood cultures have remained negative. Recommended to stay overnight again which the patient initially agreed to but then refused to have new IV replaced. He continues to refuse IV and is requesting to be discharged home. The importance of IV antibiotics was discussed but he is insistent on returning home today. Recommend outpatient follow up with wound care clinic. He will be discharged with VNA to assist with dressing changes. Questionable early infiltrate vancomycin/Zosyn as above. no respiratory symptoms, not requiring oxygen, will be on antibiotics as above. can consider repeat cxr as outpatient UTI urine culture growing klebsiella. pt denies symptoms. will be on antibiotics for above Diabetes type 2 (hypoglycemic upon arrival)... All sugars have been less than 150 glipizide and metformin on hold. HBA1c 5.0. will stop glipizide and resume metformin. blood sugars have been stable during hospitalization Time Attestation Discharge coordination time: Greater than 30 minutes Quality: Safe Use of Opioids Does Pt have an Active Cancer Diagnosis on the Problem List?: No Quality: Stroke Does the patient have a stroke diagnosis?: No Physical Exam Vital Signs: Vital Signs: Last Vital Signs Temp 97.6 F 07/05/23 07:20 Pulse 68 07/05/23 07:20 Resp 20 07/05/23 07:20 BP 119/58 L 07/05/23 07:20 Pulse Ox 96 07/05/23 07:20 O2 Del Method Room Air 07/05/23 07:20 BMI result Body Mass Index 25.0 Const: General: cooperative, comfortable, alert and awake Nutritional Appearance: average body habitus Orientation/consciousness: patient oriented x3 Resp: Effort & Inspection: normal respiratory effort, able to speak in complete sentences, no respiratory distress and no use of accessory muscles Cardio: Rate: regular rate GI: Inspection: No distended Palpation (GI): Soft to palpation and nontender Skin: Other: cellulitis left leg Neuro: General: patient oriented x3, moves all extremities and CN's II-XI intact bilaterally Extrem: Other: mild b/l leg swelling DS: Data Data Completed and Pending Labs on day of discharge: Laboratory Results - last 24 hr 07/04/23 07/04/23 07/04/23 05:24 11:03 15:49 WBC RBC Hgb Hct MCV MCH MCHC RDW Plt Count MPV Immature Gran % (Auto) Neut % (Auto) Lymph % (Auto) [place] % (Auto) Eos % (Auto) Baso % (Auto) Lymph # (Auto) [place] # (Auto) Eos # (Auto) Baso # (Auto) Abs Immat Gran (auto) Absolute Neuts (auto) Absolute Nucleated RBC Nucleated RBC % (auto) Sodium Potassium Chloride Carbon Dioxide Anion Gap BUN Creatinine Estim Creat Clear Calc Estimated GFR POC Glucose 177 H 176 H Random Glucose Estimat Average Glucose 97 Hemoglobin A1c % 5.0 Calcium Total Bilirubin AST ALT Alkaline Phosphatase Total Protein Albumin Random Vancomycin 07/04/23 07/04/23 07/05/23 20:04 20:59 05:17 WBC 8.0 RBC 4.00 L Hgb 12.3 L Hct 37.9 L MCV 94.8 MCH 30.8 MCHC 32.5 RDW 13.1 Plt Count 308 MPV 9.8 Immature Gran % (Auto) 0.5 H Neut % (Auto) 71.5 Lymph % (Auto) 19.7 L [place] % (Auto) 7.5 Eos % (Auto) 0.6 Baso % (Auto) 0.2 Lymph # (Auto) 1.6 [place] # (Auto) 0.6 Eos # (Auto) 0.1 Baso # (Auto) 0.0 Abs Immat Gran (auto) 0.04 H Absolute Neuts (auto) 5.7 Absolute Nucleated RBC 0.000 Nucleated RBC % (auto) 0.0 Sodium 140 Potassium 3.4 Chloride 105 Carbon Dioxide 26 Anion Gap 12 BUN 5 L Creatinine 0.76 Estim Creat Clear Calc 96.7 Estimated GFR > 60 POC Glucose 110 Random Glucose 111 Estimat Average Glucose Hemoglobin A1c % Calcium 8.2 L Total Bilirubin 0.4 AST 33 ALT 42 H Alkaline Phosphatase 73 Total Protein 5.6 L Albumin 2.6 L Random Vancomycin 12.5 L 07/05/23 07:22 WBC RBC Hgb Hct MCV MCH MCHC RDW Plt Count MPV Immature Gran % (Auto) Neut % (Auto) Lymph % (Auto) [place] % (Auto) Eos % (Auto) Baso % (Auto) Lymph # (Auto) [place] # (Auto) Eos # (Auto) Baso # (Auto) Abs Immat Gran (auto) Absolute Neuts (auto) Absolute Nucleated RBC Nucleated RBC % (auto) Sodium Potassium Chloride Carbon Dioxide Anion Gap BUN Creatinine Estim Creat Clear Calc Estimated GFR POC Glucose 122 H Random Glucose Estimat Average Glucose Hemoglobin A1c % Calcium Total Bilirubin AST ALT Alkaline Phosphatase Total Protein Albumin Random Vancomycin Preliminary micro results at discharge 07/02/23 05:00 Blood Culture - Preliminary Blood - Venous No growth after 48 hours. 07/02/23 04:53 Blood Culture - Preliminary Blood - Venous No growth after 48 hours. Discharge Plan Discharge Anticipated Discharge Date/Time: 07/05/23 11:29 Patient Disposition: Home Health Service Discharge Diagnosis: Left leg cellulitis hypoglycemia - resolved pneumonia UTI Referrals: [facility] [Outside] - 3-5 Days ([facility] will call you to schedule) Billy Longoria MD [Primary Care Provider] - 1 Week Nette Araujo MD [Physician] - 1 Week Discharge Medications: New cefuroxime axetil 500 mg tablet 500 mg PO Q12H 8 Days Qty: 16 0RF doxycycline monohydrate 100 mg tablet 100 mg PO BID 8 Days Qty: 16 0RF Continued cholecalciferol (vitamin D3) 50 mcg (2,000 unit) capsule 50 mcg PO DAILY 90 Days Qty: 90 3RF gabapentin 300 mg capsule 300 mg PO TID PRN (Reason: Pain) 30 Days Qty: 90 3RF albuterol sulfate 90 mcg/actuation HFA aerosol inhaler 2 puff INHALATION Q6H PRN (Reason: Respiratory Distress) Qty: 8.5 0RF ipratropium-albuterol 0.5 mg-3 mg(2.5 mg base)/3 mL solution for nebulization 3 ml inhalation Q6H PRN (Reason: wheezing) 30 Days Qty: 360 3RF metformin 500 mg tablet 500 mg PO BIDWM aspirin 81 mg tablet,delayed release (DR/EC) 81 mg PO DAILY Qty: 30 0RF Discontinued glipizide 10 mg tablet 10 mg PO BIDWM No Action (DME) CUSHION SKIN PROTECTION LESS THAN 22 -- E2503 See Rx Instructions .Route .MEDSUPPLY Qty: 1 0RF Rx Instructions: As directed (DME) ELECTRIC WHEELCHAIR See Rx Instructions .Route .MEDSUPPLY Qty: 1 0RF Rx Instructions: for lifetime use (DME) ADJUSTABLE HEIGHT ARM ASSEMBLY -- E0973 See Rx Instructions .Route .MEDSUPPLY Qty: 2 0RF Rx Instructions: As directed (DME) HEEL LOOPS -- E0951 See Rx Instructions .Route .MEDSUPPLY Qty: 2 0RF Rx Instructions: As directed (DME) BATTERY -- E2365 See Rx Instructions .Route .MEDSUPPLY Qty: 1 0RF Rx Instructions: As directed (DME) nebulizers [MC 300 Nebulizer-Unvrsl Tubing] Misc See Rx Instructions .Route Qty: 1 0RF Rx Instructions: As directed (DME) nebulizers Misc See Rx Instructions .Route Qty: 1 0RF Rx Instructions: As directed Discharge Orders: Discharge Order (Routine); Ordered 07/05/23 Ordered By: Jeannie Wynn Activity on Discharge: As tolerated Stand Alone Forms: Patient Portal Discharge page Activity Restrictions/Additional Instructions: Topical Wound Care recommendations for discharge: 1. Off Load all bony prominences with use of pillows and chair cushions.? 2. Monitor for incontinence and moisture control, use barrier creams when needed for prevention and treatment.? 7. Bilateral Lower Legs - Elevate lower legs off of surface of bed with use of pillows when in bed.? Cleanse with PH balanced soap, rinse well, Pat dry.? Apply vaseline or moisturizing ointment to both legs, apply Collagen Hydrogel wound gel to open wound beds, cover with gauze secure with ABD pad, gauze wrap and tape.? Change Every other day. 8. Left Trochanter / Buttock and Sacrum - Off Load Pressure - Cleanse with PH balance spray or wipes, pat dry. ?Apply thin layer of Triad to wound bed. Do not remove all of paste between applications as this may cause further skin damage.? Cover with foam dressing to aid in off loading and protection from friction. Change Every other day and PRN for soiling. Pt reports he follows with Outpt Wound Clinic - recommend pt to continue outpt follow up with wound clinic at time of discharge . Recommend follow up out patient Wound Clinic at [address] [place] [id number] and to call for an appointment at time of discharge. [phone].? Care Plan Goals: see below Health Concerns: left leg cellulitis pneumonia UTI diabetes with hypoglycemia Plan of Treatment: complete course of antibiotics as prescribed call to schedule follow up appointment with PCP call to schedule follow up appointment in the wound care clinic stop taking glipizide and monitor blood sugars. continue metformin. disuss diabetic management with PCP keep leg elevated and continue local wound care as recommended above consider repeat CXR as outpatient Assessment: see discharge summary Discharge Date/Time: 07/05/23 13:04
[2023-07-05 11:28] LABS: Glucose, Whole Blood 172 mg/dL (60-115)
--- NOTE | 2023-07-05 11:33 | P.CDIM_ITS ---
PROVIDER RESPONSE TEXT: To clarify, the appropriate diagnosis supported by the clinical indicators: Cellulitis left lower extremity due to/associated with Diabetes mellitus Type 2: possibly due to diab etes QUERY TEXT: PHYSICIAN'S DOCUMENTATION REQUEST Date of Query: 07/05/2023 10:14 AM EST Patient Name: Juvenal Luz Admit Date: 07/02/2023 Dear Jeannie Wynn, A review of the medical record indicates additional documentation may be needed. Please review below and update the documentation accordingly. Clinical Indicators: H&P: Cellulitis left lower extremity with ulcer Vancomycin and Zosyn Diabetes type 2 (hypoglycemia upon arrival) Regular diet given hypoglycemia Please clarify the following regarding the Complications of Diabetes Mellitus (DM): Cellulitis left lower extremity due to/associated with Diabetes mellitus Type 2 suspected, possible, probable, etc. Cellulitis is not due to Diabetes mellitus Type 2 Other (explain) Clinically unable to determine (explain) Thank you, Yesenia West, CCS, CDIS Use of terms such as suspected, likely, concern for, or probable (associated with a specific diagnosi s that is being evaluated, monitored, or treated as if it exists) are acceptable and can be coded in the inpatient se tting, when documented at the time of discharge. Please use your independent medical judgment in providing your response. THIS QUERY IS PART OF THE PERMANENT MEDICAL RECORD
--- NOTE | 2023-07-05 11:38 | P.F2F_ITS ---
Service Date Service Date: 07/05/23 Encounter Date of encounter: 07/05/23 Reasons for Services Signs and symptoms assessed: left leg cellulitis needing dressing changes Off Load all bony prominences with use of pillows and chair cushions.? Monitor for incontinence and moisture control, use barrier creams when needed for prevention and treatment.? Bilateral Lower Legs - Elevate lower legs off of surface of bed with use of pillows when in bed.? Cleanse with PH balanced soap, rinse well, Pat dry.? Apply vaseline or moisturizing ointment to both legs, apply Collagen Hydrogel wound gel to open wound beds, cover with gauze secure with ABD pad, gauze wrap and tape.? Change Every other day. Left Trochanter / Buttock and Sacrum - Off Load Pressure - Cleanse with PH balance spray or wipes, pat dry. ?Apply thin layer of Triad to wound bed. Do not remove all of paste between applications as this may cause further skin damage.? Cover with foam dressing to aid in off loading and protection from friction. Change Every other day and PRN for soiling. Overseeing Care: Billy Longoria Homebound: Leaving the home is medically contraindicated at this time without the asist of a device and/or another person due th the listed conditions above and below. Reason homebound: unsteady gait / fall risk Certification: Based on the above findings, I certify that this patient is confined to the home and needs intermittent senior care care, physical therapy and/or speech therapy, or continues to need occupational therapy. The patient is under my care, and I have initiated the establishment of the plan of care. The patient will be followed by a physician who will periodically review the plan of care. Time Spent With Patient Time: Total time managing care of this patient today ____ minutes.
[2023-07-05] MEDS: Insulin Lispro 100 UNIT/ML 3 ML VIAL SUBCUT (12:10)
== END 2023-07-05 13:04 | disposition home health service (06) | DRG 637 ==
LOC: HO.ED 06:50 → HO.EDOVER 09:22 → HO.S3 14:41
PROVIDERS: Admitting Provider Hospitalist; Emergency Provider Internal Medicine; PCP Internal Medicine; Visit Provider Physician Assistant Medical
DX: E11.628 Type 2 diabetes mellitus with other skin complications (principal); J18.9 Pneumonia, unspecified organism; E87.21 Acute metabolic acidosis; I87.312 Chronic venous hypertension (idiopathic) with ulcer of left lower extremity; L03.116 Cellulitis of left lower limb; I87.301 Chronic venous hypertension (idiopathic) without complications of right lower extremity; E11.649 Type 2 diabetes mellitus with hypoglycemia without coma; I25.10 Atherosclerotic heart disease of native coronary artery without angina pectoris; E11.40 Type 2 diabetes mellitus with diabetic neuropathy, unspecified; F17.210 Nicotine dependence, cigarettes, uncomplicated; Z20.822 Contact with and (suspected) exposure to COVID-19; Z99.3 Dependence on wheelchair; Z79.82 Long term (current) use of aspirin; Z79.84 Long term (current) use of oral hypoglycemic drugs; Z79.899 Other long term (current) drug therapy
CPT/HCPCS: 36415; 70450; 71045; 73630; 73720; 80053; 80202; 81001; 81003; 82947; 83036; 83605; 84484; 85025; 85652; 86140; 87040; 87086; 87088; 87186; 87502; 87635; 93005; 99285; A9585; J0696; J1650; J2543; J3370; J3371; J7120; P9047

== ENCOUNTER → 2023-07-02 03:41 | Outpatient (BNV) | payer MEDICARE, BC, SELFPAY | PROVIDERS: Admitting Provider Hospitalist; Emergency Provider Internal Medicine; PCP Internal Medicine; Visit Provider Internal Medicine Cardiovascular Disease | DX: I49.3 Ventricular premature depolarization (principal) | CPT/HCPCS: 93010 ==

== ENCOUNTER → 2023-07-02 09:20 | Outpatient (BNV) | payer MEDICARE, BC, SELFPAY | PROVIDERS: Admitting Provider Hospitalist; Emergency Provider Internal Medicine; Visit Provider Hospitalist | DX: I87.312 Chronic venous hypertension (idiopathic) with ulcer of left lower extremity (principal); L97.929 Non-pressure chronic ulcer of unspecified part of left lower leg with unspecified severity; E11.40 Type 2 diabetes mellitus with diabetic neuropathy, unspecified | CPT/HCPCS: 99223; 99232; 99233; 99239; G0180 ==

== ENCOUNTER 2023-10-09 12:05 | Outpatient (AMB) | payer MEDICARE, BC, SELFPAY ==
[2023-10-09 12:38] VITALS: BP 102/62; PULSE 60
--- NOTE | 2023-10-09 12:38 | A.OFFPC_ITS ---
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: No Allergies Fish Containing Products Allergy (Severe, Verified 10/21/23 18:15) ANAPHYLAXIS shellfish derived Allergy (Severe, Verified 10/21/23 18:15) ANAPHYLAXIS doxycycline Adverse Reaction (Intermediate, Verified 10/21/23 18:15) Rash Medication List - Last Reconciled 10/09/23 by Billy Longoria MD [ADJUSTABLE HEIGHT ARM ASSEMBLY -- E0973 As directed] albuterol sulfate 90 mcg/actuation 2 puffs inhalation Q6H PRN aspirin 81 mg PO DAILY [BATTERY -- E2365 As directed] blood sugar diagnostic (FreeStyle Lite Strips) As directed two times per day blood-glucose meter (FreeStyle Lite Meter kit) As directed use to sheck Blood sugar 2 times per day cholecalciferol (vitamin D3) 50 mcg PO DAILY 90 days [CUSHION SKIN PROTECTION LESS THAN 22 -- E2503 As directed] [ELECTRIC WHEELCHAIR for lifetime use] gabapentin 300 mg PO TID PRN 30 days [HEEL LOOPS -- E0951 As directed] ipratropium-albuterol 0.5 mg-3 mg(2.5 mg base)/3 mL 3 mL inhalation Q6H PRN 30 days metformin 500 mg PO BID nebulizers (MC 300 Nebulizer with Fluvanna Tubing misc) As directed nebulizers As directed tramadol 50 mg PO BID PRN Tobacco use date assessed: 10/09/23 Fall risk assessment: No Falls in past year Last assessed Fall Risk: 10/09/23 Dental Screening Dental Screen Date: 10/09/23 Did you have a dental visit in the last 12 months?: No Did you have a dental problem in the last 6 months where you did not have access to dental care?: No HPI f/u DMII / copd HPI Details Patient comes in today for his follow up visit - I have not seen him in over a year prior to today (last seen by me on 03/14/2022) Patient states that he feels okay although he appears to have some confusion and seems all over the place when answering questions He still has some open sores on his left leg that are weeping fluids - left leg has bandages on but they appear disheveled and haphazardly wrapped States that [facility] comes in to clean and wrap his legs every few days He used to go to the wound clinic but he has not been there in a few weeks now He denies any pain in his leg and states that he has not had any fever or chills lately He denies any headaches or dizziness Denies any chest pains, no increased SOB No nausea/vomiting, no abdominal pain No change in bowel habits noted States that he needs his Gabapentin and Tramadol Rx refilled today to help with the pain in his legs, lower back and joints He has had no routine follow up labs done in a while although he's had labs done a few times over the past year when he presented to the hospital [facility] Medical History (Updated 11/13/23 @ 00:02 by Yokasta Nolasco) CAD (coronary artery disease) Type 2 diabetes mellitus with diabetic neuropathy, unspecified Eschar Stasis ulcer of right lower extremity Obesity (BMI 30-39.9) Depression Psoriasis Primary osteoarthritis of both knees Vitamin D deficiency Coronary artery disease Benign essential hypertension COPD (chronic obstructive pulmonary disease) FADY (obstructive sleep apnea) Neuropathy Pulmonary hypertension HLD (hyperlipidemia) Surgical History No pertinent past surgical history Family History Father Medical history unknown Mother Cancer Social History Household Members: None Housing: Apartment Do you presently have visiting nurse or other home services: Yes ([facility] and [facility]) Alcohol intake: current Alcohol intake frequency: does not drink Alcohol type: beer and wine Patient Tobacco Use Status: Never used Tobacco Tobacco use type: Cigarette Cigarette Packs Per Day: 0.5 Cigarettes Per Day: 5 Years Smoked: 50 e-Cigarette/Vaping Use: Never Used Second Hand Smoke Exposure: No Advance Directives Date on File: 03/05/23 service: Yes Current occupational status: retired Cognitive needs: No Hearing needs: No Vision needs: No Questionnaire PHQ-9 Over the last 2 weeks, how often have you been bothered by any of the following problems? 1. Little interest or pleasure in doing things: not at all 2. Feeling down, depressed, or hopeless: not at all 3. Trouble falling or staying asleep, or sleeping too much: not at all 4. Feeling tired or having little energy: not at all 5. Poor appetite or overeating: not at all 6. Feeling bad about yourself - or that you are a failure or have let yourself or your family down: not at all 7. Trouble concentrating on things, such as reading the newspaper or watching television: not at all 8. Moving or speaking so slowly that other people could have noticed. Or the opposite - being so fidgety or restless that you have been moving around a lot more than usual: not at all 9. Thoughts that you would be better off or of hurting yourself in some way: not at all Total score: 0 Depression Screening Interpretation: Negative Depression Screening Done: Yes 40797 - PHQ-9 Billing: Yes Source: Developed by Drs. Edu Christopher, Vero Stanton, Jeremy Gurrola and colleagues, with an educational chalo from [employer]. Thrive Questionnaire Date Thrive assessed: 10/09/23 I am a: Patient What is your living situation today?: I have a steady place to live Within the past 12 months, did the food you bought not last and you didn't have the money to get more?: Never true Within the past 12 months, did you worry whether your food would run out before you got money to buy more?: Never true Do you have trouble paying for medicines?: No Do you have trouble getting transportation to medical appointments?: No Do you have trouble paying your heating and electricity bill?: No Do you have trouble taking care of your child, family member or friend?: No Do you have trouble with day-to-day activities such as bathing, preparing meals, shopping, managing finances, etc.?: No Are you currently unemployed and looking for a job?: No Are you interested in more education?: No Please select the resources that you would like help with: None Currently or been in a relationship where the following occur: no concerns reported THRIVE Score: 0 AUDIT C Alcohol Use Questionnaire (AUDIT-C) 1. How often do you have a drink containing alcohol?: Monthly or less 2. How many drinks containing alcohol do you have on a typical day when you are drinking?: 1 or 2 3. How often do you have six or more drinks on one occasion?: Never Total Score: 1 Score Reviewed/Action Taken: Yes JAIRO-7 AMB Questionnaire JAIRO-7 Date JAIRO - 7 assessed: 10/09/23 Feeling nervous, anxious, or on edge: 0 = Not at all Not being able to stop or control worryin = Not at all Worrying too much about different things: 0 = Not at all Trouble relaxin = Not at all Being so restless that it is hard to sit still: 0 = Not at all Becoming easily annoyed or irritable: 0 = Not at all Feeling afraid as if something awful might happen: 0 = Not at all Total JAIRO-7 score (0-4 normal; 5-9 mild; 10-14 moderate; 15-21 severe): 0 Source: Developed by Drs. Edu Christopher, Vero Stanton, Jeremy Gurrola and colleagues, with an educational chaol from [employer]. JAIRO-7 Assessment Billing JAIRO-7 Assessment Tool: JAIRO-7 Assessment [id number] Review of Systems Const Denies chills, Reports fatigue, Denies fever(s) and Denies headache(s) ENT Denies dysphagia, Denies dizziness, Denies otalgia, Denies headache(s), Denies odynophagia and Denies sore throat Card Denies chest pain, Denies palpitations and Reports dyspnea on exertion (mild/chronic) Resp Denies chest congestion, Denies cough, Reports dyspnea on exertion (mild/chronic) and Denies wheezing GI Denies abdominal pain, Denies constipation, Denies dysphagia, Denies heartburn, Denies diarrhea, Denies nausea, Denies odynophagia and Denies vomiting Denies dysuria and Denies nocturia Musc Reports arthralgias (especially over both knees - increasing) and Reports stiffness Skin/Breast Details: (+) weeping sores/ulcer(s) on the left lower leg - leg is currently wrapped in bandages but these appear haphazardly applied and kept in place Neuro Reports confusion (appears on and off when talking to patient), Denies dizziness and Denies headache(s) Psych Reports confusion (appears on and off when talking to patient) Endo Reports fatigue and Denies palpitations Tai/Lymph Details: increased swelling over both lower legs, ankles and feet Aller/Immun Denies wheezing Physical exam (Primary Care) Vital Signs: Last Vital Signs Pulse 60 10/09/23 12:38 BP 102/62 10/09/23 12:38 Oxygen Delivery Method Room Air 10/09/23 12:38 Tobacco/Smoking Status: Tobacco use Status Tobacco use date assessed 10/09/23 10/09/23 12:40 Patient Tobacco Use Status Never used Tobacco 10/09/23 12:40 Tobacco use type Cigarette 10/09/23 12:40 e-Cigarette/Vaping Use Never Used 10/09/23 12:40 PHQ-9: PHQ-9 Score PHQ-9: Total score 0 10/09/23 13:34 Depression Screening Interpretation: Negative Thrive Assessment: Date of Thrive Assessment Date Thrive assessed 07/03/23 10/09/23 12:40 Currently or been in a relationship where the following occur: no concerns reported Const General: no acute distress, alert and confusion (appears on and off when talking to patient) Orientation/consciousness: confusion (appears on and off when talking to patient) Limitations: wheelchair HENMT Ears: TM's normal bilaterally and EAC's normal Throat: Yes posterior oropharynx normal and Yes tonsils normal (no TP congestion noted) Neck Neck: Yes no lymphadenopathy and Yes supple Thyroid: Thyroid normal Resp Auscultation: clear to auscultation bilaterally, no rales and no wheezes Cardio Rate: regular rate Rhythm: regular rhythm Heart sounds: no murmurs GI Palpation (GI): Soft to palpation and nontender Auscultation: normal bowel sounds General: Yes no CVA tenderness Back/Spine/Pelvis Other: exam is limited as patient is wheelchair-bound and is currently unable to get up from his wheelchair Back: no CVA tenderness Cervical Spine: cervical ROM normal Thoracic/Lumbar Spine: thoracic and lumbar spine normal to inspection Skin Other: 3+ edema noted over both lower legs and feet - exam is limited due to presence of dressing/bandages on the left lower leg and compression stocking on the right lower leg Neuro General: confusion (appears on and off when talking to patient) and Unable to assess gait (but has shuffling gait during past exams/visits due to increasing knee pain) Gait exam (Neuro): Unable to assess gait (but has shuffling gait during past exams/visits due to increasing knee pain) and Assistive device used (wheelchair) Motor exam (neuro): Motor abnormalities not present and Abnormal motor strength present (strength approx 4/5 over both lower ext - exam limited due to pain 02/17) Extrem Other: both lower legs currently covered - left leg covered with bandages and right leg has compression stocking on General: No clubbing, No cyanosis and Yes edema (3+ over bilateral lower legs and feet) Results AMB Hemoglobin A1c AMB Hemoglobin A1c 5.2 % Last Edit by ARI Chapman on 10/09/23 12:53 Results Reviewed Results Reviewed: Laboratory Last Values Hgb A1c (Clinic) 5.2 % (4.0-6.0) 10/09/23 10:42 Assessment and Plan Assessment & Plan (1) Stasis edema of both lower extremities: Code(s): I87.303 - Chronic venous hypertension (idiopathic) without complications of bilateral lower extremity Plan: Patient has chronic stasis edema/lymphedema over both lower extremities for years - R>L He currently has compression stockings (for the right leg) to help control his edema and his left leg is wrapped in (cabrera) bandages and dressings - appear to still be actively weeping fluids His legs are currently being managed and cleaned/dressed by [facility] but his left leg appears to be getting worse He also appears to have had an allergic reaction to Doxycycline a couple of months ago even though he has been prescribed this a few times over the past few years Will try referring him back to the Wound Clinic for further evaluation and management Patient is encouraged to continue elevating his legs whenever he can throughout the day to help minimize his edema He used to take Furosemide 20 mg Q AM to help manage his edema but this appears to have been discontinued, presumably due to his kidney issues (2) Primary osteoarthritis of both knees: Code(s): M17.0 - Bilateral primary osteoarthritis of knee Plan: Patient's mobility has declined significantly over the past few years and at a previous visit, he was using a cane and a golf club for support to help him walk States that his knees osteoarthritis have gotten progressively worse since and with his recent increased edema of both lower extremities and current left leg ulcer as well as his diabetic neuropathy, can now hardly walk and is mostly dependent on a wheelchair (pushed by others) to move around He can only walk short distances at home mostly to go to the bathroom and needs help/assistance doing this to help keep him from falling Is not able to stand on his feet to prepare his own meals X-rays of both knees done a couple of years ago showed (+) OA changes - patient has received cortisone injections from orthopedics in the past Takes OTC Acetaminophen 500 mg every 6 to 8 hours PRN for pain but states that they were not helping Follow up with orthopedics as scheduled (3) Type 2 diabetes mellitus with diabetic neuropathy, unspecified: Code(s): E11.40 - Type 2 diabetes mellitus with diabetic neuropathy, unspecified Qualifiers: Diabetes mellitus residential insulin use: without terminal gauger use Qualified Code(s): E11.40 - Type 2 diabetes mellitus with diabetic neuropathy, unspecified Plan: His in-office HgbA1c done today is at 5.2% - goal is < 7.0% Reinforced diabetic diet Continue Metformin 500 mg BID His GFR was >60 when last checked at the ER in June 2023 (4) COPD (chronic obstructive pulmonary disease): Code(s): J44.9 - Chronic obstructive pulmonary disease, unspecified Qualifiers: COPD type: unspecified COPD Qualified Code(s): J44.9 - Chronic obstructive pulmonary disease, unspecified Plan: Continue Flovent HFA 220 mcg 1 puff BID, Budesonide 180 mcg 1 puff BID and ProAir HFA 2 puffs 4 times a day as needed;?patient also has Duoneb that he uses with his nebulizer when needed Follow up with pulmonary as scheduled (5) Pure hypercholesterolemia: Code(s): E78.00 - Pure hypercholesterolemia, unspecified Plan: He has not been able to get any follow up labs done in a while now and he has not had his fasting lipids checked since 2020 Reinforced low cholesterol diet Continue Pravastatin 40 mg QD for now Will have patient recheck his labs and fasting lipids in 3 to 4 months for follow up (6) Benign essential hypertension: Code(s): I10 - Essential (primary) hypertension Plan: Reinforced low sodium diet - goal is systolic BP of at least 140 mm or less Continue Lisinopril 20 mg QD (7) Coronary artery disease: Code(s): I25.10 - Atherosclerotic heart disease of [place] coronary artery without angina pectoris Qualifiers: Coronary Disease-Associated Artery/Lesion type: [place] artery [place] vs. transplanted heart: [place] heart Associated angina: without angina Qualified Code(s): I25.10 - Atherosclerotic heart disease of [place] coronary artery without angina pectoris Plan: Asymptomatic Continue low dose Aspirin 81 mg QD Follow up with cardiology as scheduled (8) Vitamin D deficiency: Code(s): E55.9 - Vitamin D deficiency, unspecified Plan: Continue Vitamin D3 1000 units daily (9) Psoriasis: Code(s): L40.9 - Psoriasis, unspecified Plan: Continue Triamcinolone acetonide 0.05% ointment BID PRN (10) Depression: Code(s): F32.9 - Major depressive disorder, single episode, unspecified Qualifiers: Depression Type: major depressive disorder Major depression recurrence: recurrent Active/Remission status: currently active Major depression episode severity: unspecified Qualified Code(s): F33.9 - Major depressive disorder, recurrent, unspecified Plan: Follow up with psychiatry as scheduled (11) Obesity (BMI 30-39.9): Code(s): E66.9 - Obesity, unspecified Plan: Reinforced diet/lose weight although weight loss and exercise are unrealistic at this time given patient's limited mobility, unsteady gait and ongoing comorbidities Plan Follow up in 4 months Orders: Orders AMB Hemoglobin A1c 10/09/23 Z13.9 - Encounter for screening, unspecified Referrals Wound Care Referral I87.312 - Chronic venous hypertension (idiopathic) with ulcer of left lower extremity, L97.929 - Non-pressure chronic ulcer of unspec ified part of left lower leg with unspecified severity Medications: Refilled gabapentin 300 mg PO TID PRN 90 caps 2RF Pain 30 days tramadol 50 mg PO BID PRN 20 tabs 0RF pain Coding Level of Care Code Est Pt Level 4 (93036) Diagnoses Stasis edema of both lower extremities I87.303 Primary osteoarthritis of both knees M17.0 Type 2 diabetes mellitus with diabetic neuropathy, without long-term current use of insulin E11.40 Diabetes mellitus terminal gauger insulin use: without residential use Chronic obstructive pulmonary disease, unspecified COPD type J44.9 COPD type: unspecified COPD Pure hypercholesterolemia E78.00 Benign essential hypertension I10 Coronary artery disease involving [place] coronary artery of [place] heart without angina pectoris I25.10 Coronary Disease-Associated Artery/Lesion type: [place] artery [place] vs. transplanted heart: [place] heart Associated angina: without angina Vitamin D deficiency E55.9 Psoriasis L40.9 Episode of recurrent major depressive disorder, unspecified depression episode severity F33.9 Depression Type: major depressive disorder Major depression recurrence: recurrent Active/Remission status: currently active Major depression episode severity: unspecified Obesity (BMI 30-39.9) E66.9 Additional Codes JAIRO-7 Assessment Billing - JAIRO-7 Assessment Tool: JAIRO-7 Assessment [id number] ([id number])
== END 2023-10-09 13:43 | disposition home or self-care (01) ==
PROVIDERS: PCP Internal Medicine; Visit Provider Internal Medicine
DX: E11.40 Type 2 diabetes mellitus with diabetic neuropathy, unspecified (principal); J44.9 Chronic obstructive pulmonary disease, unspecified; F33.9 Major depressive disorder, recurrent, unspecified; I87.303 Chronic venous hypertension (idiopathic) without complications of bilateral lower extremity; M17.0 Bilateral primary osteoarthritis of knee; E78.00 Pure hypercholesterolemia, unspecified; I10 Essential (primary) hypertension; I25.10 Atherosclerotic heart disease of native coronary artery without angina pectoris; E55.9 Vitamin D deficiency, unspecified; L40.9 Psoriasis, unspecified; E66.9 Obesity, unspecified
CPT/HCPCS: 83036; 99214

== ENCOUNTER 2023-10-21 17:52 | Inpatient (IN) | payer MEDICARE, BC, SELFPAY ==
[2023-10-21] VITALS (7 sets, daily range): BP systolic 98–139; BP diastolic 41–64; PULSE 80–100; RESP 16–18; TEMP 35.6–37; O2SAT 94–98; BMI 25.3
--- NOTE | ~2023-10-21 | XR_ITS ---
EXAMINATION: XR CHEST CLINICAL INFORMATION: PICC line placement COMPARISON: 10/28/2023 TECHNIQUE: Frontal view of the chest was obtained. FINDINGS: Right PICC tip lies in the region of the distal SVC. Lung volumes are relatively symmetric. There is haziness throughout the right lung with perihilar predominance. There is mild prominence of the central vasculature and interstitium of the left lung which may also demonstrate mild haziness, though less pronounced than in the right lung. No appreciable pneumothorax. There is suggestion of small pleural effusions. Cardiac size is within normal limits. Calcification is present at the aortic arch. No acute osseous findings are seen. XR/XR chest 1V IMPRESSION: 1. Right PICC tip in the region of the distal SVC. 2. Asymmetric haziness of the right lung with perihilar predominance, which could reflect asymmetric edema or pneumonia in the proper clinical setting.
--- NOTE | ~2023-10-21 | XR_ITS ---
EXAMINATION: XR FOOT, LEFT CLINICAL INFORMATION: Wound with question of osseous abnormality COMPARISON: Left foot radiographs 07/02/2023, MR left foot 07/04/2023 TECHNIQUE: AP and lateral views of the left foot. FINDINGS: Generalized osteopenia is seen. Dorsal soft tissue swelling on the foot persists but appears minimally improved since prior. Sclerotic changes with some ill-defined lytic areas are seen in the posterior calcaneus with calcaneal spurring. No fractures or bony destructions are seen. XR/XR foot LT 2V IMPRESSION: 1. No evidence of osteomyelitis. 2. Sclerotic changes with some unchanged ill-defined lytic areas in the posterior calcaneus. 3. Dorsal soft tissue swelling.
--- NOTE | ~2023-10-21 | US_ITS ---
EXAMINATION: US RETROPERITONEAL LIMITED (RENAL ONLY) CLINICAL INFORMATION: Acute kidney injury. COMPARISON: CT chest 02/04/2020 TECHNIQUE: Ultrasound of the kidneys was performed FINDINGS: RIGHT KIDNEY: 11.1 x 5.6 x 5.3 cm (SAG x AP x TRV). The kidney is normal in size, contour, and echogenicity. Renal cortical thickness is normal. No calculi. No hydronephrosis. 2 benign Bosniak class I renal cysts are noted, the largest exophytic at the lower pole measuring 8.2 cm which require no additional imaging or follow-up. No solid renal masses are seen. LEFT KIDNEY: 12.6 x 6.0 x 5.0 cm (SAG x AP x TRV). The kidney is normal in size, contour, and echogenicity. Renal cortical thickness is normal. No calculi . No hydronephrosis. A benign lateral lower pole 2.2 cm Bosniak class I renal cyst is noted which requires no additional imaging or follow up. No solid renal masses are seen. US/US renal BI IMPRESSION: Negative exam.
--- NOTE | ~2023-10-21 | XR_ITS ---
EXAMINATION: XR CHEST CLINICAL INFORMATION: Cough. COMPARISON: Chest radiograph dated 07/02/2023. TECHNIQUE: Frontal view of the chest was obtained. FINDINGS: Heart size is normal for this projection. There is calcific atherosclerotic disease of the aorta. No consolidation. No pleural effusion. No pneumothorax. No acute osseous abnormality. XR/XR chest 1V IMPRESSION: No acute cardiopulmonary disease.
--- NOTE | ~2023-10-21 | XR_ITS ---
EXAMINATION: XR FOOT, LEFT CLINICAL INFORMATION: Question of osteomyelitis COMPARISON: Foot radiograph yesterday Foot radiographs 12/03/2022 Left foot MRI 07/04/2023 TECHNIQUE: AP, lateral, and oblique views of the left foot. FINDINGS: There is been no interval change since the study of yesterday with the exception of some decreased foot swelling at the dorsum of the foot. Diffuse mottled areas of osteopenia or present with small rounded areas in the calcaneus. There is marked osteopenia in the metatarsal heads especially the second through fourth and the possibility of some bone destruction cannot be entirely excluded. No fractures are seen. Flexion deformities are present at the metacarpal phalangeal joints. XR/XR foot LT 2V IMPRESSION: No interval change since yesterday. There is marked osteopenia in the metatarsal heads especially the second through fourth and the possibility of some bone destruction cannot be entirely excluded. MRI is recommended for further evaluation as these areas appeared relatively normal on the prior 07/04/2023 MRI.
--- NOTE | ~2023-10-21 | CT_ITS ---
EXAMINATION: CT CHEST WITHOUT CONTRAST CLINICAL INFORMATION: Hypoxia. Right-sided chest wall defect COMPARISON: Portions of a previous CT 02/04/20 TECHNIQUE: Multidetector volumetric CT imaging of the chest was done. Axial MIP volume rendering provided. Sagittal and coronal reformatted images were obtained. This CT examination was performed using dose optimization techniques as appropriate, variously including the following: *Automated exposure control *Adjustment of mA and/or kV according to patient size (this includes techniques or standardized protocols for targeted exams where dose is matched to indication/reason for exam; i.e. extremities or head) *Use of iterative reconstruction technique DLP: 225 mGy-cm FINDINGS: CARBONIZER: Devices overlie the right hip. Jewelry present. Calcified aorta. Interstitial prominence. Blunting of the costophrenic angles LUNGS: There are secretions in the lower trachea. There are peripheral reticular and polygonal opacities bilaterally. There are scattered small areas of groundglass opacity. There is underlying centrilobular emphysema. There is volume loss in the right lower lobe. There is marked interval worsening aeration when compared to 02/04/20. MEDIASTINUM: There are nonspecific lymph nodes in the retrocaval pretracheal region, subcarinal region. No abnormality the esophagus. CORONARY ARTERY CALCIFICATION: There is marked coronary artery calcification. There is calcification of the aortic valve. There is no significant pericardial fluid. The main pulmonary artery is dilated. PLEURA: There is moderate right pleural fluid. There is a small amount of left pleural fluid. There are areas of pleural fluid which appears somewhat loculated. There is left pleural calcification. This represents interval worsening. AXILLA: No lymphadenopathy. UPPER ABDOMEN: There are calcifications within the liver. There is a probable cyst arising from the posterior right kidney without suspicious features. This does not require specific imaging follow-up. OSSEOUS STRUCTURES: No suspicious focal lesion CT/CT chest wo IV con IMPRESSION: Marked interval worsening. Extensive areas of reticular opacity, groundglass disease and moderate right and small left pleural fluid. There is a calcified pleural plaque in the left. Cytology the pleural fluid should be considered. Follow-up study after resolution of the acute symptoms necessary. Secretions within the trachea. Fleischner guidelines were followed.
--- NOTE | ~2023-10-21 | US_ITS ---
EXAMINATION: US ABDOMEN LIMITED CLINICAL INFORMATION: Transaminitis. Liver dysfunction.. COMPARISON: Chest CT from 02/04/2020 TECHNIQUE: Limited ultrasound examination of the right upper quadrant, predominantly focused on the gallbladder and liver. FINDINGS: Small right pleural effusion is present. Small volume of simple appearing free fluid is present within the right upper quadrant. Liver has normal size, contour and parenchymal echotexture. No evidence of steatosis, cirrhosis or mass. There is a subjective observation of slightly increased echogenicity of portal venous haider. This can be seen in a normal liver, but also might be observed in patients with hepatitis; it is not a specific ultrasound imaging findings for hepatitis. Gallbladder is hydropic and measures up to 5 cm transverse diameter an 11.2 cm in length. This appears to be chronic since a similar hydropic appearance of the gallbladder is seen on the chest CT from 02/04/2020. No gallbladder sludge, polyps or stones. Common bile duct is not well seen; it is approximately 0.4 cm diameter. A simple cyst of the upper pole of the right kidney measures up to 8 cm maximum dimension. No renal imaging follow-up is recommended for a simple cyst. US/US abdomen limited IMPRESSION: * There appears to be chronic gallbladder hydrops. This could be a manifestation of gallbladder dysfunction. * No evidence of cholelithiasis, cholecystitis or biliary tract obstruction. * Small right pleural effusion is present. Also, there is trace free fluid in the abdomen. These findings are nonspecific. Query if there is any history of cardiac dysfunction since mild congestive heart failure could account for these observations.
--- NOTE | 2023-10-21 17:57 | ED.GENADULT ---
HPI - General Adult General Chief complaint: Wound/Laceration Stated complaint: Sepsis alert, extremity injury x1 year Time Seen by Provider: 10/21/23 17:57 Source: patient and EMS Mode of arrival: EMS Limitations: no limitations History of Present Illness HPI narrative: Patient is a 78-year-old male who presents to the emergency department via EMS for evaluation. Reportedly patient's son did not hear from the patient today, so he called to have a wellness check done. He was found to be incontinent by EMS with weeping odorous dressing to the left foot. Reportedly has VNA services coming 3 times weekly for dressing changes. Patient states ?that was a blister that opened up?. He admits to being wheelchair-bound. When asked he admits to having a cough and rhinorrhea recently. Related Data Home Medications ?Medication ?Instructions ?Recorded ?Confirmed gabapentin 300 mg capsule 300 mg PO TID PRN NEUROPATHIC Pain 10/22/23 10/22/23 glipizide 10 mg tablet 10 mg PO BID 10/22/23 10/22/23 Previous Rx's ?Medication ?Instructions ?Recorded aspirin 81 mg tablet,delayed 81 mg PO DAILY #30 tabs 04/12/20 release ADJUSTABLE HEIGHT ARM ASSEMBLY -- #2 ea 03/29/22 E0973 BATTERY -- E2365 #1 ea 03/29/22 CUSHION SKIN PROTECTION LESS THAN #1 ea 03/29/22 22 -- E2503 ELECTRIC WHEELCHAIR #1 ea 03/29/22 HEEL LOOPS -- E0951 #2 ea 03/29/22 cholecalciferol (vitamin D3) 50 50 mcg PO DAILY 90 days #90 caps 03/07/23 mcg (2,000 unit) capsule nebulizers #1 ea 06/21/23 nebulizers (MC 300 Nebulizer with #1 ea 06/21/23 [place] [facility] [place]) blood-glucose meter (FreeStyle #1 ea 07/16/23 Lite Meter kit) ipratropium 0.5 mg-albuterol 3 mg 3 ml inhalation Q6H PRN wheezing 07/17/23 (2.5 mg base)/3 mL nebulization 30 days #360 mL soln blood sugar diagnostic (FreeStyle #100 ea 08/08/23 Lite Strips) metformin 500 mg tablet 500 mg PO BID #180 tabs 08/08/23 Allergies Allergy/AdvReac Type Severity Reaction Status Date / Time Fish Containing Products Allergy Severe ANAPHYLAXIS Verified 10/21/23 18:15 shellfish derived Allergy Severe ANAPHYLAXIS Verified 10/21/23 18:15 doxycycline AdvReac Intermediate Rash Verified 10/21/23 18:15 Review of Systems Review of Systems: Yes all other systems are reviewed and are negative [facility] Past Medical History Attestation statement: The following information was validated with the patient. Source: old records reviewed Medical History Stasis ulcer of right lower extremity Obesity (BMI 30-39.9) Depression Psoriasis Primary osteoarthritis of both knees Vitamin D deficiency Coronary artery disease Benign essential hypertension Type 2 diabetes mellitus with diabetic neuropathy, unspecified COPD (chronic obstructive pulmonary disease) FADY (obstructive sleep apnea) Neuropathy Pulmonary hypertension HLD (hyperlipidemia) Surgical History No pertinent past surgical history Family History Family History Father Medical history unknown Mother Cancer Social History Social History Household Members: None Housing: Apartment Do you presently have visiting nurse or other home services: Yes ([facility]NA and [facility]) Alcohol intake: current Alcohol intake frequency: does not drink Alcohol type: beer and wine Patient Tobacco Use Status: Never used Tobacco Tobacco use type: Cigarette Cigarette Packs Per Day: 0.5 Cigarettes Per Day: 5 Years Smoked: 50 e-Cigarette/Vaping Use: Never Used Second Hand Smoke Exposure: No Advance Directives Date on File: 03/05/23 service: Yes Current occupational status: retired Cognitive needs: No Hearing needs: No Vision needs: No Physical Exam ED Vital Signs: Vital Signs - 24 hr 10/21/23 18:01 10/21/23 18:18 10/21/23 20:48 Temperature 97.6 F 98.6 F Pulse Rate 89 80 85 Respiratory Rate 16 18 16 Blood Pressure 126/64 126/64 133/46 L Pulse Oximetry 97 96 Oxygen Delivery Method Room Air Room Air 10/21/23 21:48 10/21/23 22:59 10/21/23 23:44 Temperature 96.1 F L Pulse Rate 89 85 94 Respiratory Rate 16 16 Blood Pressure 124/51 L 139/59 L 129/41 L Pulse Oximetry 94 98 Oxygen Delivery Method Room Air Room Air 10/21/23 23:53 10/22/23 00:10 10/22/23 00:30 Temperature 97.6 F Pulse Rate 100 94 89 Respiratory Rate 18 16 16 Blood Pressure 129/54 L 128/50 L 125/56 L Pulse Oximetry 98 98 97 Oxygen Delivery Method Room Air Room Air Room Air 10/22/23 01:00 10/22/23 01:30 10/22/23 01:51 Temperature Pulse Rate 90 89 82 Respiratory Rate 16 16 16 Blood Pressure 124/55 L 109/83 105/78 Pulse Oximetry 98 98 98 Oxygen Delivery Method Room Air Room Air Room Air BMI result Body Mass Index 25.3 Appearance: Alert.?Oriented to person. Disheveled, unkempt No acute distress.?Normal affect. Eyes: Pupils equal, round and reactive to light.? ENT: Pharynx normal.?? Neck: Normal inspection.? Neck supple.?? CVS: Heart sounds normal. Normal heart rate and rhythm.? Pulses normal.?? Respiratory: No respiratory distress.? Lung sounds clear to auscultation bilaterally?? Abdomen: Soft and non-tender. Normoactive bowel sounds. genital: Performed with sql developer dba, ED RN. Significant excoriation to buttocks, proximal posterior thighs, periarea with excoriation stage II pressure ulcers, covered in dried stool and urine Skin: Skin warm and dry.? Normal skin color.? ?? Neuro: Moves all extremities spontaneously. Sensation intact bilaterally. Course Reevaluation(s) Reevaluation #1: Nursing staff having difficulty obtaining IV access and serum labs. Ultrasound guided IV access was obtained to the left upper extremity as per procedural portion of this note Time: 20:25 Reevaluation #2: Received phone call from lab regarding critical labs lactic acid of 3.0, potassium of 6.1, Has leukocytosis of 21.5 with left shift, no anemia, no thrombocytopenia. JIMBO with anion gap 26. Hyperkalemic/ acidotic; Lokelma, insulin/dextrose, calcium gluconate, bicarb. Sepsis alert was called at this time as he now meets criteria. Additional 1.5L NS IVF ordered for total sepsis fluid bolus. Plan for admission to medicine service. Time: 21:04 Reevaluation #3: Spoke with hospitalist, Dr. Jerson Rodrigues, will consult nephrology for their input, and repeat chemistries and venous gas Initial left upper extremity Ultrasound guided IV infiltrated - Dr. Travis placed second line US guided to right upper extremity Time: 22:06 Additional Reevaluation(s): 22:00 - advised by nursing staff second US line infiltrated to right upper extremity. Consulted with Nephrology via tiger text, Dr. Bains, recommends no changes to current treatment plan, can place Cummings for monitoring I&O 22:15 - Dr. Leblanc to bedside, ultrasound-guided line to right upper extremity infusing well without infiltration or pain. Patient refusing Cummings catheter placement. Agreeable to have [place] catheter placed 01:00 - nursing staff inquired to lab, why lactic acid had not yet resulted which had been sent previously, advised by lab the specimen was received but had not been ran. Processing at this time 01:30 - potassium downtrending currently 5.2, anion gap has to 19, venous gas meds acidotic, renal function essentially unchanged. Spoke with hospitalist, Dr. Jerson Rodrigues for admission Medications Administered Generic Name Dose Route Start Last Admin Trade Name Freq PRN Reason Stop Dose Admin Heparin Sodium (Porcine) 5,000 unit 10/22/23 09:00 10/22/23 09:14 Heparin Sodium,Porcine 5,000 Unit/Ml Vial SUBCUT 5,000 unit Q8H SHELBIE Administration Dextrose 250 mls @ 750 mls/hr 10/21/23 21:26 10/22/23 00:47 D10 IV Infused Q15M PRN Infusion per Hypoglycemia Standing Ord. Piperacillin Sod/Tazobactam 50 mls @ 100 mls/hr 10/22/23 06:00 10/22/23 14:41 Sod 2.25 gm/ Sodium Chloride IV Infused Q8H SHELBIE Infusion Sodium Chloride 1,000 mls @ 125 mls/hr 10/22/23 05:45 10/22/23 15:40 Ns IVCONT 125 mls/hr .Q8H SHELBIE Administration Acetaminophen 1,000 mg in 100 mls @ 400 mls/hr 10/22/23 06:30 10/22/23 14:25 Ofirmev IV Not Given Q6H SHELBIE Albumin Human 100 mls @ 100 mls/hr 10/22/23 08:30 10/22/23 15:49 Kedbumin 25 % IV 10/23/23 03:29 Infused Q6H [facility] Infusion Albumin Human 100 mls @ 100 mls/hr 10/22/23 11:30 10/22/23 13:58 Kedbumin 25 % IV 10/23/23 06:29 Infused Q6H SHELBIE Infusion Norepinephrine Bitartrate 8 mg in 250 mls @ 0 mls/hr 10/22/23 11:30 10/22/23 14:54 Levophed IV 0.46 mcg/kg/min .Q0M SHELBIE 68.91 mls/hr Titration Protocol Per Protocol Vasopressin 20 unit in 100 mls @ 12 mls/hr 10/22/23 14:30 10/22/23 15:43 Vasostrict IVCONT Not Given .Q8H20M SHELBIE 0.04 UNIT/MIN Insulin Human Lispro 0 unit 10/22/23 07:30 10/22/23 13:51 Insulin Lispro 100 Unit/Ml 3 Ml Vial SUBCUT Not Given QIDACHS [facility] Protocol Sodium Chloride 3 ml 10/22/23 08:00 10/22/23 15:44 0.9 % Sodium Chloride Flush 3 Ml Syringe IVFLUSH 3 ml QSHIFT [facility] Administration Discontinued Medications Generic Name Dose Route Start Last Admin Trade Name Freq PRN Reason Stop Dose Admin Fentanyl 50 mcg 10/22/23 13:50 10/22/23 13:40 Fentanyl Citrate/Pf 100 Mcg/2 Ml Vial IVPUSH 10/22/23 13:51 50 mcg ONCE ONE Administration Protocol Piperacillin Sod/Tazobactam 50 mls @ 100 mls/hr 10/21/23 18:25 10/21/23 21:10 Sod 3.375 gm/ Sodium Chloride IV 10/21/23 18:54 Infused ONCE ONE Infusion Sodium Chloride 1,000 mls @ 999 mls/hr 10/21/23 20:45 10/21/23 23:15 Ns IV 10/21/23 21:45 Infused .Q1H1M SHELBIE Infusion Calcium Gluconate 2 gm in 100 mls @ 50 mls/hr 10/21/23 21:26 10/22/23 01:09 Calcium Gluconate IV 10/21/23 23:25 Infused ONCE ONE Infusion Sodium Chloride 1,000 mls @ 999 mls/hr 10/21/23 21:45 10/22/23 01:27 Ns IV 10/21/23 23:15 Not Given .Q1H1M SHELBIE Sodium Bicarbonate 50 meq/ 1,000 mls @ 85 mls/hr 10/22/23 02:30 10/22/23 05:43 Dextrose IV Infused .[id number] SHELBIE Infusion Sodium Chloride 500 mls @ 500 mls/hr 10/22/23 05:00 10/22/23 06:46 Ns IV 10/22/23 05:59 Infused .Q1H SHELBIE Infusion Vancomycin HCl 2,000 mg in 500 mls @ 250 mls/hr 10/22/23 05:30 10/22/23 11:52 Vancomycin/Ns IV 10/22/23 07:29 Infused ONCE ONE Infusion Sodium Chloride 1,000 mls @ 100 mls/hr 10/22/23 08:30 10/22/23 09:24 Ns IVCONT Not Given .Q10H SHELBIE Sodium Chloride 1,000 mls @ 999 mls/hr 10/22/23 10:30 10/22/23 12:30 Ns IVCONT 10/22/23 12:30 Infused .Q1H1M SHELBIE Infusion Sodium Chloride 1,000 mls @ 500 mls/hr 10/22/23 11:30 10/22/23 12:44 Ns IVCONT 10/22/23 13:29 Not Given .Q2H SHELBIE Insulin Human Regular 5 unit 10/21/23 21:26 10/21/23 23:13 Insulin Regular, Human 100 Unit/Ml 3 Ml Vial IVPUSH 10/21/23 21:27 5 unit ONCE ONE Administration Sodium Bicarbonate 50 meq 10/21/23 22:59 10/21/23 23:16 Sodium Bicarbonate 8.4% 50 Meq/50 Ml Syringe IVPUSH 10/21/23 23:00 50 meq ONCE ONE Administration Sodium Zirconium Cyclosilicate 10 gm 10/21/23 21:26 10/21/23 22:42 Sodium Zirconium Cyclosilicate 10 Gm Powd.Pack PO 10/21/23 21:27 10 gm ONCE ONE Administration Procedures EJ/Peripheral Line Arm R: Time Out Performed: Yes Skin Cleansed in Sterile Fashion: Yes Size (gauge): 20 IV Secured and Dressing Applied: Yes Patient Tolerated Procedure: well Arm L: Time Out Performed: Yes Skin Cleansed in Sterile Fashion: Yes Size (gauge): 18 IV Secured and Dressing Applied: Yes Patient Tolerated Procedure: well Medical Decision Making Medical Decision Making MDM Narrative: Patient is a 78-year-old male with past medical history of COPD, stasis dermatitis, neuropathy, CAD, depression, psoriasis, osteoarthritis, FADY presenting to emergency department via EMS for evaluation after patient's son had requested a wellness check after not hearing from him today. He arrives disheveled and unkempt, with urinary and fecal incontinence, , with left lower extremity dressing completely saturated, falling off the extremity, heel esposed. Has a chronic wound to the left foot which he states is due to an opening blister, and states he has visiting nurse services coming into the home 3 times weekly. Duration is chronic in nature, he was admitted to [facility] in June 2023 with same wound, based on review of imaging from his initial admission, its current appearance is worse, at that time seems to have been localized to the dorsum of the left foot, it is now circumferential and extending up the distal aspect of the leg. At the time of initial evaluation he is without tachycardia fever, tachypnea, or hypoxia. Given the significant extent of his ulcerations decision made for lactic acid and blood cultures to be obtained although he does not currently meet sepsis criteria. XR of the foot will also be obtained to evaluate osseous abnormality. Differential Diagnosis Differential Diagnoses: The differential diagnosis associated with the presentation includes (Chronic stasis ulceration, osteomyelitis, cellulitis) Admission/Observation Consideration of admission/observation: Escalation of care including admission/observation considered (See narrative above in course narrative for further detail) Consult Healthcare Provider Management of the patient was discussed with: Hospitalist and Composite Worker Lab Data [facility] Lab Attestation statement: I reviewed the patient's lab results. (See course naris) 10/22/23 05:50 10/22/23 05:50 Labs: Lab Results 10/21/23 10/21/23 10/21/23 Range/Units 20:26 20:42 20:43 WBC 21.5 H (4.8-10.8) X10*3/uL RBC 4.90 D (4.60-5.80) X10*6/uL Hgb 15.9 D (14.0-18.0) g/dl Hct 47.6 D (42.0-52.0) % MCV 97.1 (80.0-98.0) fL MCH 32.4 (27.0-33.0) pg MCHC 33.4 (31.0-36.0) g/dl RDW 14.0 (11.0-16.0) % Plt Count 356 (160-400) X10*3/uL MPV 9.4 (9.4-12.4) fL Immature Gran % (Auto) 0.8 H (0.0-0.4) % Neut % (Auto) 82.2 H (45-73) % Lymph % (Auto) 11.2 L (20-40) % [place] % (Auto) 5.7 (2-11) % Eos % (Auto) 0.0 (0-4) % Baso % (Auto) 0.1 (0-2) % Lymph # (Auto) 2.4 (1.2-4.9) X10*3/uL [place] # (Auto) 1.2 (0.1-1.2) X10*3/uL Eos # (Auto) 0.0 (0.0-0.4) X10*3/uL Baso # (Auto) 0.0 (0.0-0.2) X10*3/uL Abs Immat Gran (auto) 0.18 H (0.00-0.03) X10*3/uL Absolute Neuts (auto) 17.7 H (2.0-8.3) x10*3/uL Absolute Nucleated RBC 0.000 (0.0-0.012) X10*3/uL Nucleated RBC % (auto) 0.0 (0.0-0.2) /100WBC VBG pH (7.32-7.43) VBG pCO2 mmHg VBG pO2 mmHg VBG HCO3 (22-26) mmol/L VBG O2 Saturation % VBG Base Excess mmol/L Sodium 133 L (135-145) mmol/L Potassium 6.1 H* D (3.3-5.1) mmol/L Chloride 97 (96-108) mmol/L Carbon Dioxide 16 L (22-29) mmol/L Anion Gap 26 H (12-20) BUN 60 H (9-16) mg/dL Creatinine 3.84 H (0.5-1.4) mg/dL Estim Creat Clear Calc 16.1 Estimated GFR 15 POC Glucose (60-115) mg/dL Random Glucose 92 (60-115) mg/dL Lactic Acid 3.0 H* (0.5-2.0) mmol/L Calcium 9.3 D (8.4-10.2) mg/dL Magnesium 2.1 (1.6-2.6) mg/dL Total Bilirubin 0.4 (0.0-1.0) mg/dL AST 14 (5-37) U/L ALT 9 (0-40) U/L Alkaline Phosphatase 123 H (39-117) U/L Total Creatine Kinase (38-174) U/L Troponin I High Sens 13.6 D (<3.5-35.0) ng/L B-Natriuretic Peptide 147 H (<100) pg/mL Total Protein 6.6 (6.5-8.0) g/dL Albumin 2.7 L (3.5-5.0) g/dL Influenza Type A (PCR) NEGATIVE (Negative) Influenza Type B (PCR) NEGATIVE (Negative) RSV RNA Qual (PCR) NEGATIVE (Negative) SARS-CoV-2 RNA (RT-PCR) NEGATIVE (Negative) 10/21/23 10/21/23 10/21/23 Range/Units 22:33 22:53 23:34 WBC (4.8-10.8) X10*3/uL RBC (4.60-5.80) X10*6/uL Hgb (14.0-18.0) g/dl Hct (42.0-52.0) % MCV (80.0-98.0) fL MCH (27.0-33.0) pg MCHC (31.0-36.0) g/dl RDW (11.0-16.0) % Plt Count (160-400) X10*3/uL MPV (9.4-12.4) fL Immature Gran % (Auto) (0.0-0.4) % Neut % (Auto) (45-73) % Lymph % (Auto) (20-40) % [place] % (Auto) (2-11) % Eos % (Auto) (0-4) % Baso % (Auto) (0-2) % Lymph # (Auto) (1.2-4.9) X10*3/uL [place] # (Auto) (0.1-1.2) X10*3/uL Eos # (Auto) (0.0-0.4) X10*3/uL Baso # (Auto) (0.0-0.2) X10*3/uL Abs Immat Gran (auto) (0.00-0.03) X10*3/uL Absolute Neuts (auto) (2.0-8.3) x10*3/uL Absolute Nucleated RBC (0.0-0.012) X10*3/uL Nucleated RBC % (auto) (0.0-0.2) /100WBC VBG pH 7.25 L (7.32-7.43) VBG pCO2 41 mmHg VBG pO2 35 mmHg VBG HCO3 18 L (22-26) mmol/L VBG O2 Saturation 56.0 % VBG Base Excess -8.5 mmol/L Sodium (135-145) mmol/L Potassium (3.3-5.1) mmol/L Chloride (96-108) mmol/L Carbon Dioxide (22-29) mmol/L Anion Gap (12-20) BUN (9-16) mg/dL Creatinine (0.5-1.4) mg/dL Estim Creat Clear Calc Estimated GFR POC Glucose 79 98 (60-115) mg/dL Random Glucose (60-115) mg/dL Lactic Acid (0.5-2.0) mmol/L Calcium (8.4-10.2) mg/dL Magnesium (1.6-2.6) mg/dL Total Bilirubin (0.0-1.0) mg/dL AST (5-37) U/L ALT (0-40) U/L Alkaline Phosphatase (39-117) U/L Total Creatine Kinase (38-174) U/L Troponin I High Sens (<3.5-35.0) ng/L B-Natriuretic Peptide (<100) pg/mL Total Protein (6.5-8.0) g/dL Albumin (3.5-5.0) g/dL Influenza Type A (PCR) (Negative) Influenza Type B (PCR) (Negative) RSV RNA Qual (PCR) (Negative) SARS-CoV-2 RNA (RT-PCR) (Negative) 0510/22/23 10/22/23 Range/Units 23:47 00:06 00:19 WBC (4.8-10.8) X10*3/uL RBC (4.60-5.80) X10*6/uL Hgb (14.0-18.0) g/dl Hct (42.0-52.0) % MCV (80.0-98.0) fL MCH (27.0-33.0) pg MCHC (31.0-36.0) g/dl RDW (11.0-16.0) % Plt Count (160-400) X10*3/uL MPV (9.4-12.4) fL Immature Gran % (Auto) (0.0-0.4) % Neut % (Auto) (45-73) % Lymph % (Auto) (20-40) % [place] % (Auto) (2-11) % Eos % (Auto) (0-4) % Baso % (Auto) (0-2) % Lymph # (Auto) (1.2-4.9) X10*3/uL [place] # (Auto) (0.1-1.2) X10*3/uL Eos # (Auto) (0.0-0.4) X10*3/uL Baso # (Auto) (0.0-0.2) X10*3/uL Abs Immat Gran (auto) (0.00-0.03) X10*3/uL Absolute Neuts (auto) (2.0-8.3) x10*3/uL Absolute Nucleated RBC (0.0-0.012) X10*3/uL Nucleated RBC % (auto) (0.0-0.2) /100WBC VBG pH (7.32-7.43) VBG pCO2 mmHg VBG pO2 mmHg VBG HCO3 (22-26) mmol/L VBG O2 Saturation % VBG Base Excess mmol/L Sodium (135-145) mmol/L Potassium (3.3-5.1) mmol/L Chloride (96-108) mmol/L Carbon Dioxide (22-29) mmol/L Anion Gap (12-20) BUN (9-16) mg/dL Creatinine (0.5-1.4) mg/dL Estim Creat Clear Calc Estimated GFR POC Glucose 99 84 69 (60-115) mg/dL Random Glucose (60-115) mg/dL Lactic Acid (0.5-2.0) mmol/L Calcium (8.4-10.2) mg/dL Magnesium (1.6-2.6) mg/dL Total Bilirubin (0.0-1.0) mg/dL AST (5-37) U/L ALT (0-40) U/L Alkaline Phosphatase (39-117) U/L Total Creatine Kinase (38-174) U/L Troponin I High Sens (<3.5-35.0) ng/L B-Natriuretic Peptide (<100) pg/mL Total Protein (6.5-8.0) g/dL Albumin (3.5-5.0) g/dL Influenza Type A (PCR) (Negative) Influenza Type B (PCR) (Negative) RSV RNA Qual (PCR) (Negative) SARS-CoV-2 RNA (RT-PCR) (Negative) 10/22/23 10/22/23 Range/Units 00:36 00:39 WBC (4.8-10.8) X10*3/uL RBC (4.60-5.80) X10*6/uL Hgb (14.0-18.0) g/dl Hct (42.0-52.0) % MCV (80.0-98.0) fL MCH (27.0-33.0) pg MCHC (31.0-36.0) g/dl RDW (11.0-16.0) % Plt Count (160-400) X10*3/uL MPV (9.4-12.4) fL Immature Gran % (Auto) (0.0-0.4) % Neut % (Auto) (45-73) % Lymph % (Auto) (20-40) % [place] % (Auto) (2-11) % Eos % (Auto) (0-4) % Baso % (Auto) (0-2) % Lymph # (Auto) (1.2-4.9) X10*3/uL [place] # (Auto) (0.1-1.2) X10*3/uL Eos # (Auto) (0.0-0.4) X10*3/uL Baso # (Auto) (0.0-0.2) X10*3/uL Abs Immat Gran (auto) (0.00-0.03) X10*3/uL Absolute Neuts (auto) (2.0-8.3) x10*3/uL Absolute Nucleated RBC (0.0-0.012) X10*3/uL Nucleated RBC % (auto) (0.0-0.2) /100WBC VBG pH 7.26 L (7.32-7.43) VBG pCO2 43 mmHg VBG pO2 30 mmHg VBG HCO3 19 L (22-26) mmol/L VBG O2 Saturation 46.0 % VBG Base Excess -6.7 mmol/L Sodium 133 L (135-145) mmol/L Potassium 5.2 H (3.3-5.1) mmol/L Chloride 100 (96-108) mmol/L Carbon Dioxide 19 L (22-29) mmol/L Anion Gap 19 (12-20) BUN 59 H (9-16) mg/dL Creatinine 3.79 H (0.5-1.4) mg/dL Estim Creat Clear Calc 16.3 Estimated GFR 15 POC Glucose 107 (60-115) mg/dL Random Glucose 197 H (60-115) mg/dL Lactic Acid (0.5-2.0) mmol/L Calcium 8.3 L D (8.4-10.2) mg/dL Magnesium (1.6-2.6) mg/dL Total Bilirubin (0.0-1.0) mg/dL AST (5-37) U/L ALT (0-40) U/L Alkaline Phosphatase (39-117) U/L Total Creatine Kinase 41 (38-174) U/L Troponin I High Sens (<3.5-35.0) ng/L B-Natriuretic Peptide (<100) pg/mL Total Protein (6.5-8.0) g/dL Albumin (3.5-5.0) g/dL Influenza Type A (PCR) (Negative) Influenza Type B (PCR) (Negative) RSV RNA Qual (PCR) (Negative) SARS-CoV-2 RNA (RT-PCR) (Negative) Independent Interpretation I performed an independent interpretation of an: EKG and Plain X-Ray (No acute fracture to left foot) Interpretation: Rate: 86 Rhythm:? Normal sinus rhythm Normal P waves.? Normal JAMARCUS.?? Normal QRS complex.?? ST T wave :??No ST elevation. Mild ST depression in the lateral leads qTC: 411 prior studies:? June 2023 The study has been interpreted contemporaneously by me. Radiology Impression Discussion of test interpretation with radiology: I have reviewed the radiologist's reading. Radiologist Impression: XR/XR foot LT 2V IMPRESSION: 1. No evidence of osteomyelitis. 2. Sclerotic changes with some unchanged ill-defined lytic areas in the posterior calcaneus. 3. Dorsal soft tissue swelling. XR/XR chest 1V IMPRESSION: No acute cardiopulmonary disease. Independent Historian Clinical information obtained from an independent historian. History obtained from or confirmed by: EMS External Record Review External record reviewed: Inpatient record Critical Care Time Critical Care Time Critical Care Time: Yes Total Critical Care Time: 60 Attestation: I personally attest to this critical care time spent taking care of the patient exclusive of all other billable procedures was approximately 60 minutes including initial evaluation of patient, ordering tests, x-ray interpretation, EKG interpretation, medical consultation, documentation, re-evaluation. Discharge Plan Discharge Clinical Impression: Leg wound, left, Acute kidney injury, Acute hyperkalemia, Metabolic acidosis Sepsis Qualifiers: Sepsis type: sepsis due to unspecified organism Sepsis acute organ dysfunction status: unspecified Qualified Code(s): A41.9 - Sepsis, unspecified organism Patient Disposition: Admitted As Inpatient Interventions: Admission Worksheet (ED) Last Done: 10/22/23 07:34 Discharge Date/Time: 10/22/23 12:44
--- NOTE | 2023-10-21 19:00 | PC.NURSE ---
this rn assumed care of pt from ems. pt placed on caridac monitor pt changed over into hospital attire. pt incontinent of stool. stool matter adhered to skin janine sheeba to bedside to assess breakdown on coccyx area. barrier cream applied to shikha area
[2023-10-21] MEDS: Piperacillin Sodium/Tazobactam 3.375 GM in 0.9 % Sodium Chloride 50 ML IV (20:37)
[2023-10-21 20:49] LABS: MANUAL DIFF FLAG NO
[2023-10-21 20:58] LABS: Basophils Percent Auto 0.1 % (0-2); Hematocrit 47.6 % (42.0-52.0); Hemoglobin 15.9 g/dl (14.0-18.0); Imm Gran Abs Auto 0.18 X10*3/uL (0.00-0.03); Imm Gran Pct Auto 0.8 % (0.0-0.4); Lymphocytes Absolute Auto 2.4 X10*3/uL (1.2-4.9); Lymphocytes Percent Auto 11.2 % (20-40); Mean Corpuscular HGB Conc 33.4 g/dl (31.0-36.0); Mean Corpuscular Hemoglobin 32.4 pg (27.0-33.0); Mean Corpuscular Volume 97.1 fL (80.0-98.0); Mean Platelet Volume 9.4 fL (9.4-12.4); Monocytes Absolute Auto 1.2 X10*3/uL (0.1-1.2); Monocytes Percent Auto 5.7 % (2-11); Neutrophils Absolute Auto 17.7 x10*3/uL (2.0-8.3); Neutrophils Percent Auto 82.2 % (45-73); Platelet Count 356 X10*3/uL (160-400); White Blood Count 21.5 X10*3/uL (4.8-10.8)
--- NOTE | 2023-10-21 20:58 | PC.NURSE ---
delay in obtaining bloodwork and iv med administration due to pt being difficult stick this rn and additional arn attempted iv access x2 each. janine sheeba made aware attempted US guided IV multiple attempts made placement in L bicep, blood cultures pending pt medicated according to tiffany multiple ed techs attempted remaining blood work
--- NOTE | 2023-10-21 21:01 | PC.NURSE ---
pt khushboo najera called left number for sheeba to call with update [phone]
[2023-10-21] MEDS: 0.9 % Sodium Chloride 1,000 ML 999 ML IV ×2 (21:06→22:43)
[2023-10-21 21:07] LABS: Influenza A PCR NEGATIVE (Negative); Influenza B PCR NEGATIVE (Negative); Resp Syncy Virus RNA Qual PCR NEGATIVE (Negative); SARS COV2 PCR INHOUSE NEGATIVE (Negative)
[2023-10-21 21:09] LABS: Alanine Aminotransferase 9 U/L (0-40); Albumin Level 2.7 g/dL (3.5-5.0); Alkaline Phosphatase 123 U/L (39-117); Anion Gap 26 (12-20); Aspartate Amino Transferase 14 U/L (5-37); Bilirubin Total 0.4 mg/dL (0.0-1.0); Blood Urea Nitrogen 60 mg/dL (9-16); Calcium 9.3 mg/dL (8.4-10.2); Carbon Dioxide 16 mmol/L (22-29); Chloride 97 mmol/L (96-108); Creatinine Clr Calc Pharmacy 16.1; Estimated Glomerular Filt Rate 15; Glucose Random 92 mg/dL (60-115); Magnesium 2.1 mg/dL (1.6-2.6); Potassium 6.1 mmol/L (3.3-5.1); Sodium 133 mmol/L (135-145); Total Protein 6.6 g/dL (6.5-8.0)
[2023-10-21 21:24] LABS: B Type Natriuretic Peptide 147 pg/mL (<100)
--- NOTE | 2023-10-21 21:27 | ECG_ITS ---
Test Reason : HYPERKALEMIA Blood Pressure : / mmHG Vent. Rate : 090 BPM Atrial Rate : 090 BPM P-R Int : 168 ms QRS Dur : 066 ms QT Int : 320 ms P-R-T Axes : 094 079 -51 degrees QTc Int : 391 ms Poor data quality Normal sinus rhythm Low voltage QRS Septal infarct , age undetermined ST & T wave abnormality, consider inferolateral ischemia Abnormal ECG When compared with ECG of 02-JUL-2023 03:50, Poor data quality in current ECG precludes serial comparison Referred By: Franca Ayon Electronically Signed By:AUGUST HUBER MD
--- NOTE | 2023-10-21 21:43 | PC.NURSE ---
xeroform, non stick gauze, and gauze wrap dressing put in place per janine sheeba. pt tlerated well
--- NOTE | 2023-10-21 21:44 | PC.NURSE ---
US guided IV in L bicep, noted to be infiltrated. IVF paused. [facility] made aware awaiting reattempt placement by dr rosales
--- NOTE | 2023-10-21 21:50 | ECG_ITS ---
Test Reason : REPEAT Blood Pressure : / mmHG Vent. Rate : 086 BPM Atrial Rate : 086 BPM P-R Int : 160 ms QRS Dur : 070 ms QT Int : 344 ms P-R-T Axes : 083 094 -28 degrees QTc Int : 411 ms Normal sinus rhythm Rightward axis Pulmonary disease pattern Septal infarct (cited on or before 21-OCT-2023) Abnormal ECG When compared with ECG of 21-OCT-2023 21:29, Serial changes of Septal infarct Present Referred By: Franca Ayon Electronically Signed By:AUGUST HUBER MD
[2023-10-21 22:21] LABS: Troponin-I High Sensitivity 13.6 ng/L (<3.5-35.0)
[2023-10-21 22:39] LABS: Venous Blood Gas Refer to POC result
[2023-10-21 22:41] LABS: VBG Base Excess -8.5 mmol/L; VBG HCO3 18 mmol/L (22-26); VBG pCO2 41 mmHg; VBG pH 7.25 (7.32-7.43); VBG pO2 35 mmHg
[2023-10-21] MEDS: Sodium Zirconium Cyclosilicate 10 GM POWD.PACK PO (22:42)
[2023-10-21] MEDS: Calcium Gluconate/NaCl,Iso-Osm 2 GM/100 ML PLAST..BAG IV (22:44)
[2023-10-21 22:46] LABS: Reflex Lactate? Lactic Acid Added
[2023-10-21 22:58] LABS: Glucose, Whole Blood 79 mg/dL (60-115)
--- NOTE | 2023-10-21 23:01 | PC.NURSE ---
us guided iv attempt #2 infiltrated delay in medical chemist. weigh and charge worker aware additional us guided line placed poc 79 per sheeba janine give iv push insulin followed by d10 with q15min poc checks x1hr oncoming nurse made aware of plan
[2023-10-21] MEDS: Insulin Regular, Human 100 UNIT/ML 3 ML VIAL IVPUSH (23:13)
[2023-10-21] MEDS: Dextrose 10 % 250 ML 750 ML IV (23:14)
[2023-10-21] MEDS: Sodium Bicarbonate 8.4% 50 MEQ/50 ML SYRINGE IVPUSH (23:16)
--- NOTE | 2023-10-21 23:35 | PC.NURSE ---
repeat poc 98.
[2023-10-22] VITALS (49 sets, daily range): BP systolic 75–146; BP diastolic 26–83; PULSE 55–94; RESP 11–18; TEMP 35.8–37; O2SAT 95–99; BMI 26.0
[2023-10-22 00:07] LABS: Glucose, Whole Blood 99 mg/dL (60-115)
[2023-10-22 00:07] LABS: Glucose, Whole Blood 98 mg/dL (60-115)
--- NOTE | 2023-10-22 00:11 | PC.NURSE ---
Addendum entered by Chitra Powell 10/22/23 01:36: [place] cath applied per Dale BARBOZA verbal order. Original Note: assumed care of patient 2315. pt given ivp insulin and dextrose infusion. q15 poc checks ongoing. poc blood glucose wnl. pt is axox3. rectal temp wnl. repeat lactic sent to lab. pt repositioned to L. side. ivf infusing per mar. vss. pt is refusing lacy cath. Dale BARBOZA aware. awaiting repeat labs at 0020.
[2023-10-22 00:18] LABS: Glucose, Whole Blood 84 mg/dL (60-115)
[2023-10-22 00:23] LABS: Glucose, Whole Blood 69 mg/dL (60-115)
[2023-10-22] MEDS: Dextrose 10 % 250 ML 750 ML IV (00:27)
--- NOTE | 2023-10-22 00:27 | PC.NURSE ---
poc 69. [facility] tester compressed gases notified. dxtrose infusing per mar. pt remains axox3 speaking full clear sentences.
[2023-10-22 00:40] LABS: Glucose, Whole Blood 107 mg/dL (60-115)
[2023-10-22 00:44] LABS: Venous Blood Gas Refer to POC result
[2023-10-22 00:46] LABS: VBG Base Excess -6.7 mmol/L; VBG HCO3 19 mmol/L (22-26); VBG pCO2 43 mmHg; VBG pH 7.26 (7.32-7.43); VBG pO2 30 mmHg
[2023-10-22 01:00] LABS: Anion Gap 19 (12-20); Blood Urea Nitrogen 59 mg/dL (9-16); Calcium 8.3 mg/dL (8.4-10.2); Carbon Dioxide 19 mmol/L (22-29); Chloride 100 mmol/L (96-108); Creatinine Clr Calc Pharmacy 16.3; Estimated Glomerular Filt Rate 15; Glucose Random 197 mg/dL (60-115); Potassium 5.2 mmol/L (3.3-5.1); Sodium 133 mmol/L (135-145)
--- NOTE | 2023-10-22 01:28 | PC.NURSE ---
unable to scan into MAR. 500ml ivf bolus infusing at 0120 per order; verified.
--- NOTE | 2023-10-22 01:35 | PC.NURSE ---
lactic drawn 2340 by this RN and sent to lab. call made to lab 0134 as results still not received. staff stated sample has been in fridge and will be processed now. Dale BARBOZA aware.
--- NOTE | 2023-10-22 01:52 | PC.NURSE ---
500 ml ivf infused now. 2x bp to be obtained.
--- NOTE | 2023-10-22 02:20 | PC.NURSE ---
Dr. Jerson Rodrigues at bedside to educate pt on need for lacy catheter as no urine present via tex[place] cath. pt continues to refuse. Dr. Jerson Rodrigues attempt call to son.
[2023-10-22 02:25] LABS: ~Lactic Acid-LAB USE ONLY 3.8 mmol/L (0.5-2.0)
--- NOTE | 2023-10-22 04:01 | PC.NURSE ---
pt continues to refuse lacy catheter, 2nd attempt by Dr. Jerson Rodrigues at bedside to educate patient on importance. patient has not had UO following IVF and other IV med administrations. bladder scan shows 193mL urine in bladder and pt denies need to urinate. tex[place] cath in place. Dr. Jerson Rodrigues states to continue with administering bicarb drip. nad. pt resting comfortably denies and pain/cp/sob. vss. nsr on monitor 76 bpm.
[2023-10-22 04:03] LABS: Reflex Lactate? 2 Y
[2023-10-22] MEDS: Sodium Bicarbonate 8.4% 50 MEQ in Dextrose 5 % 950 ML 85 MEQ IV (04:24)
--- NOTE | 2023-10-22 04:40 | PM.IMHP ---
History of Present Illness Date of Service: 10/22/23 Attending physician on admission: Thom Rodrigues Chief Complaint: Left leg pain Most of the HPI was provided by patient's son over the phone. Juvenal Luz is a 78 years old man with past medical history significant for type 2 diabetes mellitus was brought to the emergency department via EMS after his son contacted police for a wellness check as he noted that his speech was different. Son also mentioned that he tried to text his that the previous day but he was not answering back. Son said that his that is not taking care of himself properly, is not eating and is usually in a lot of pain to his left leg. In addition, son expressed that he is that we will need to be placed in a nursing facility at he is unable to leave by himself. On evaluation, the patient was mildly lethargic but capable of answering simple questions. He was able to tell me that he has not been vomiting or having diarrhea. He also denied use of diuretics and mentioned that he recently took a course of Augmentin for leg infection. He also told me that the only 3 medications/supplements that he takes daily is metformin, gabapentin and vitamin B12. Denies use of NSAIDs. He did not report alcohol abuse, tobacco smoking or illicit drug use. In the ED, he was found to have stable vital signs. Blood work showed leukocytosis of 21.5. Hemoglobin and platelets are normal. Corrected sodium is 135. Potassium was initially 6.1 but decreased to 5.2. CO2 increased from 16 to 19. Creatinine is 3.79 (3.84z). There is worsening lactic acidosis (3.4 --> 3.8). Total CK is normal. BNP slightly elevated at 147. Viral testing is negative for influenza, RSV and COVID-19. CXR is negative. Left foot x-ray showed no evidence of osteomyelitis, it did show sclerotic changes with some unchanged ill-defined lytic areas in the posterior calcaneus and dorsal soft tissue swelling. ED tx: Zosyn 3.375 g IV, insulin R 5 units IV, Lokelma 10 g IV PO, NS 2 L bolus. Review of Systems Review of Systems: Limited due to mental changes. [facility] Medical History Stasis ulcer of right lower extremity Obesity (BMI 30-39.9) Depression Psoriasis Primary osteoarthritis of both knees Vitamin D deficiency Coronary artery disease Benign essential hypertension Type 2 diabetes mellitus with diabetic neuropathy, unspecified COPD (chronic obstructive pulmonary disease) FADY (obstructive sleep apnea) Neuropathy Pulmonary hypertension HLD (hyperlipidemia) Family History Father Medical history unknown Mother Cancer Surgical History No pertinent past surgical history Social History Household Members: None Housing: Apartment Do you presently have visiting nurse or other home services: Yes ([employer] and [employer]) Alcohol intake: current Alcohol intake frequency: does not drink Alcohol type: beer and wine Patient Tobacco Use Status: Never used Tobacco Tobacco use type: Cigarette Cigarette Packs Per Day: 0.5 Cigarettes Per Day: 5 Years Smoked: 50 Smoked in Last 30 Days: No e-Cigarette/Vaping Use: Never Used Second Hand Smoke Exposure: No Use of substances other than those prescribed or required for medical reasons: No Advance Directives: Yes Advance Directives on File: Yes Advance Directives Date on File: 03/05/23 Do you have a plan to hurt others: No Plan Nutrition Risks: No Nutritional Risk service: No Current occupational status: retired Cognitive needs: No Hearing needs: No Vision needs: No Meds Allergies Allergy/AdvReac Type Severity Reaction Status Date / Time Fish Containing Products Allergy Severe ANAPHYLAXIS Verified 10/21/23 18:15 shellfish derived Allergy Severe ANAPHYLAXIS Verified 10/21/23 18:15 doxycycline AdvReac Intermediate Rash Verified 10/21/23 18:15 Active Medications: Current Medications Acetaminophen (Acetaminophen 325 Mg Tablet) 650 mg PO Q6H PRN PRN Reason: Fever, Headache, Pain 1-3 Calcium Carbonate (Calcium Carbonate 750 Mg Tab.Chew) 750 mg PO Q6H PRN PRN Reason: Heartburn Dextrose (D10) 250 mls @ 750 mls/hr IV Q15M PRN PRN Reason: per Hypoglycemia Standing Ord. Last Infusion: 10/22/23 00:47 Dose: Infused Sodium Bicarbonate 50 meq/ (Dextrose) 1,000 mls @ 85 mls/hr IV .[id number] SHELBIE Last Admin: 10/22/23 04:24 Dose: 85 mls/hr Magnesium Hydroxide (Milk Of Magnesia 30 Ml Oral.Susp) 30 ml PO DAILY PRN PRN Reason: Constipation Melatonin (Melatonin 3 Mg Tablet) 6 mg PO BEDTIME PRN PRN Reason: Insomnia Polyethylene Glycol (Polyethylene Glycol 3350 17 Gm Powd.Pack) 17 gm PO DAILY PRN PRN Reason: Constipation Sodium Chloride (0.9 % Sodium Chloride Flush 3 Ml Syringe) 3 ml IVFLUSH QSHIFT [facility] Physical Exam Vital Signs and Narrative: Vital Signs: Last Vital Signs Temp 98.0 F 10/22/23 04:22 Pulse 82 10/22/23 04:22 Resp 16 10/22/23 04:22 BP 106/46 L 10/22/23 02:50 Pulse Ox 97 10/22/23 04:22 O2 Del Method Room Air 10/22/23 04:22 BMI result Body Mass Index 25.3 Constitutional - Lethargic. Awakes upon calling his name. Answer simple questions. No acute distress noted. Afebrile. HEENT - Pupils equally round. Normal sclerae. Dry oral mucosa. Heart - S1S2, RRR. Lungs - Normal lung expansion, Normal respiratory effort, No respiratory distress, CTA bilaterally Abdomen - NT / ND; +BS; No rebound or guarding Extremities - Bilateral pitting edema. Left lower extremity with macerated and moist skin. Malodorous discharge. Musculoskeletal - Normal inspection, normal ROM Skin - Warm/Dry Neurological - Alert & oriented x2 (unable to recall current year). Slurred speech. No facial droop. No focal weakness. Psychological - Depressed affect Results Labs 10/21/23 20:42 10/22/23 00:39 Labs: Laboratory Results - last 24 hr 10/21/23 10/21/23 10/21/23 20:26 20:42 20:43 MCV 97.1 MCH 32.4 MCHC 33.4 RDW 14.0 Plt Count 356 MPV 9.4 Immature Gran % (Auto) 0.8 H Neut % (Auto) 82.2 H Lymph % (Auto) 11.2 L Hernando % (Auto) 5.7 Eos % (Auto) 0.0 Baso % (Auto) 0.1 Lymph # (Auto) 2.4 Hernando # (Auto) 1.2 Eos # (Auto) 0.0 Baso # (Auto) 0.0 Abs Immat Gran (auto) 0.18 H Absolute Neuts (auto) 17.7 H Absolute Nucleated RBC 0.000 Nucleated RBC % (auto) 0.0 VBG pH VBG pCO2 VBG pO2 VBG HCO3 VBG O2 Saturation VBG Base Excess Anion Gap 26 H Estim Creat Clear Calc 16.1 Estimated GFR 15 POC Glucose Random Glucose 92 Lactic Acid 3.0 H* Lactic Acid F/U @ 2Hr Calcium 9.3 D Magnesium 2.1 Total Bilirubin 0.4 AST 14 ALT 9 Alkaline Phosphatase 123 H Total Creatine Kinase Troponin I High Sens 13.6 D B-Natriuretic Peptide 147 H Total Protein 6.6 Albumin 2.7 L Influenza Type A (PCR) NEGATIVE Influenza Type B (PCR) NEGATIVE RSV RNA Qual (PCR) NEGATIVE SARS-CoV-2 RNA (RT-PCR) NEGATIVE 10/21/23 10/21/23 10/21/23 22:33 22:53 23:34 MCV MCH MCHC RDW Plt Count MPV Immature Gran % (Auto) Neut % (Auto) Lymph % (Auto) Hernando % (Auto) Eos % (Auto) Baso % (Auto) Lymph # (Auto) Hernando # (Auto) Eos # (Auto) Baso # (Auto) Abs Immat Gran (auto) Absolute Neuts (auto) Absolute Nucleated RBC Nucleated RBC % (auto) VBG pH 7.25 L VBG pCO2 41 VBG pO2 35 VBG HCO3 18 L VBG O2 Saturation 56.0 VBG Base Excess -8.5 Anion Gap Estim Creat Clear Calc Estimated GFR POC Glucose 79 98 Random Glucose Lactic Acid Lactic Acid F/U @ 2Hr Calcium Magnesium Total Bilirubin AST ALT Alkaline Phosphatase Total Creatine Kinase Troponin I High Sens B-Natriuretic Peptide Total Protein Albumin Influenza Type A (PCR) Influenza Type B (PCR) RSV RNA Qual (PCR) SARS-CoV-2 RNA (RT-PCR) 10/21/23 10/22/23 10/22/23 23:47 00:06 00:19 MCV MCH MCHC RDW Plt Count MPV Immature Gran % (Auto) Neut % (Auto) Lymph % (Auto) Hernando % (Auto) Eos % (Auto) Baso % (Auto) Lymph # (Auto) Hernando # (Auto) Eos # (Auto) Baso # (Auto) Abs Immat Gran (auto) Absolute Neuts (auto) Absolute Nucleated RBC Nucleated RBC % (auto) VBG pH VBG pCO2 VBG pO2 VBG HCO3 VBG O2 Saturation VBG Base Excess Anion Gap Estim Creat Clear Calc Estimated GFR POC Glucose 99 84 69 Random Glucose Lactic Acid Lactic Acid F/U @ 2Hr Calcium Magnesium Total Bilirubin AST ALT Alkaline Phosphatase Total Creatine Kinase Troponin I High Sens B-Natriuretic Peptide Total Protein Albumin Influenza Type A (PCR) Influenza Type B (PCR) RSV RNA Qual (PCR) SARS-CoV-2 RNA (RT-PCR) 10/22/23 10/22/23 10/22/23 00:36 00:39 02:00 MCV MCH MCHC RDW Plt Count MPV Immature Gran % (Auto) Neut % (Auto) Lymph % (Auto) Hernando % (Auto) Eos % (Auto) Baso % (Auto) Lymph # (Auto) Hernando # (Auto) Eos # (Auto) Baso # (Auto) Abs Immat Gran (auto) Absolute Neuts (auto) Absolute Nucleated RBC Nucleated RBC % (auto) VBG pH 7.26 L VBG pCO2 43 VBG pO2 30 VBG HCO3 19 L VBG O2 Saturation 46.0 VBG Base Excess -6.7 Anion Gap 19 Estim Creat Clear Calc 16.3 Estimated GFR 15 POC Glucose 107 Random Glucose 197 H Lactic Acid Lactic Acid F/U @ 2Hr 3.8 H* Calcium 8.3 L D Magnesium Total Bilirubin AST ALT Alkaline Phosphatase Total Creatine Kinase 41 Troponin I High Sens B-Natriuretic Peptide Total Protein Albumin Influenza Type A (PCR) Influenza Type B (PCR) RSV RNA Qual (PCR) SARS-CoV-2 RNA (RT-PCR) Imaging Radiologist's Impressions: Impressions Chest X-Ray 10/21/23 21:07 IMPRESSION: No acute cardiopulmonary disease. Foot X-Ray 10/21/23 21:07 IMPRESSION: 1. No evidence of osteomyelitis. 2. Sclerotic changes with some unchanged ill-defined lytic areas in the posterior calcaneus. 3. Dorsal soft tissue swelling. Assessment and Plan (1) Metabolic acidosis: Status: Acute (2) Acute hyperkalemia: Status: Acute (3) Acute kidney injury: Status: Acute (4) Sepsis: Qualifiers: Sepsis type: sepsis due to unspecified organism Sepsis acute organ dysfunction status: unspecified Qualified Code(s): A41.9 - Sepsis, unspecified organism Status: Acute Plan Juvenal Luz is a 78 y/o man admitted with: Acute kidney injury, possibly multifactorial secondary to poor PO intake/volume depletion, acute infection. No vomiting or diarrhea reported. No recent use of NSAIDs. Normal total CK. Admit to hospitalist service. Continue IV fluids (received 2L NS in ED). Patient is refusing indwelling urinary catheter (bladder scan = 193 ml). Check phosphate. Low-potassium diet. Nephrology consult. Hyperkalemia, secondary to above; improving. Calcium gluconate, Lokelma, insulin R and bicarb given. No peaked T-waves. Telemetry. Continue to monitor potassium level. Metabolic acidosis, AG closed now (pH 7.26); likely combine: starvation ketosis, JIMBO (?RTA) and/or lactic acidosis. Continue IV fluids. Lactic acidosis. Could be multifactorial: Metformin use and/or severe sepsis. Hold metformin. Continue IV fluids and empiric IV antibiotic therapy with vancomycin and Zosyn (doses adjusted to renal function). Acute encephalopathy likely multifactorial: gabapentin, acidosis. Hold gabapentin. Aspiration and fall precautions. Type 2 diabetes mellitus. BG checks before meals at bedtime. Blood glucose control with insulin sliding scale. Metformin on hold due to lactic acidosis and JIMBO. Sepsis secondary to left lower extremity cellulitis. Continue empiric IV antibiotic therapy with Zosyn and vancomycin. Wound care consult. Continue to monitor vital signs and WBC count. Please note: Patient's son asked not to be contacted until lunch time unless we need to call for emergencies. Code status: Full DVT prophylaxis: Heparin Patient will need hospitalization for at least 2 midnights for JIMBO treatment and evaluation. Patient will need treatment with IV fluids and evaluation by subspecialty. He will also need close monitoring of electrolytes and vital signs. Quality Stroke Does the patient have a stroke diagnosis?: No VTE Prior VTE?: No VTE Risk Level:: Medical - moderate - high VTE Device Contraindication: N/A - Device Ordered VTE Drug Contraindication: N/A - Med Ordered
[2023-10-22] MEDS: Piperacillin Sodium/Tazobactam 2.25 GM in 0.9 % Sodium Chloride 50 ML IV ×3 (05:47→22:05)
[2023-10-22] MEDS: 0.9 % Sodium Chloride 500 ML IV (05:50)
--- NOTE | 2023-10-22 05:51 | PC.NURSE ---
pt reports 01/17 pain L. foot. pt educated on pain management and offered prn tylenol while awaiting further orders by MD. pt refused tylenol. MD notified.
[2023-10-22 06:06] LABS: MANUAL DIFF FLAG NO
[2023-10-22 06:23] LABS: Lactic Acid 2.1 mmol/L (0.5-2.0)
--- NOTE | 2023-10-22 06:23 | PC.NURSE ---
dr megha magallanes aware of bp 98/46. hold iv dilaudid at this time. iv tylenol to be ordered.
[2023-10-22 06:32] LABS: Basophils Percent Auto 0.2 % (0-2); Hematocrit 40.2 % (42.0-52.0); Hemoglobin 13.4 g/dl (14.0-18.0); Imm Gran Abs Auto 0.14 X10*3/uL (0.00-0.03); Imm Gran Pct Auto 0.7 % (0.0-0.4); Lymphocytes Absolute Auto 1.5 X10*3/uL (1.2-4.9); Lymphocytes Percent Auto 7.7 % (20-40); Mean Corpuscular HGB Conc 33.3 g/dl (31.0-36.0); Mean Corpuscular Hemoglobin 32.4 pg (27.0-33.0); Mean Corpuscular Volume 97.3 fL (80.0-98.0); Mean Platelet Volume 9.4 fL (9.4-12.4); Monocytes Absolute Auto 1.4 X10*3/uL (0.1-1.2); Monocytes Percent Auto 7.1 % (2-11); Neutrophils Percent Auto 84.3 % (45-73); Platelet Count 289 X10*3/uL (160-400); Red Blood Count 4.13 X10*6/uL (4.60-5.80); Red Cell Distribution Width 13.9 % (11.0-16.0); White Blood Count 18.9 X10*3/uL (4.8-10.8)
[2023-10-22 06:33] LABS: Alanine Aminotransferase 9 U/L (0-40); Albumin Level 2.2 g/dL (3.5-5.0); Alkaline Phosphatase 96 U/L (39-117); Anion Gap 18 (12-20); Aspartate Amino Transferase 14 U/L (5-37); Bilirubin Total 0.4 mg/dL (0.0-1.0); Blood Urea Nitrogen 58 mg/dL (9-16); Calcium 8.2 mg/dL (8.4-10.2); Carbon Dioxide 19 mmol/L (22-29); Chloride 99 mmol/L (96-108); Creatinine Clr Calc Pharmacy 17.3; Estimated Glomerular Filt Rate 17; Glucose Random 134 mg/dL (60-115); Potassium 4.8 mmol/L (3.3-5.1); Sodium 131 mmol/L (135-145); Total Protein 5.2 g/dL (6.5-8.0)
[2023-10-22] MEDS: 0.9 % Sodium Chloride 1,000 ML 125 ML IVCONT ×3 (06:40→22:05)
[2023-10-22] MEDS: vancomycin/NS 2,000 MG/500 ML PLAST..BAG 250 MG IV (06:42)
[2023-10-22] MEDS: Acetaminophen 1,000 MG/100 ML PIGGYBACK 400 MG IV (06:46)
--- NOTE | 2023-10-22 07:52 | PC.NURSE ---
Alert and responsive, sitting up in bed eating breakfast. BS before breakfast 77, bladder scanned for 264, patient denies discomfort in bladder, declines lacy placement, MD aware
[2023-10-22 07:54] LABS: Glucose, Whole Blood 77 mg/dL (60-115)
[2023-10-22 08:04] LABS: Reflex Lactate? Lactic Acid Added
--- NOTE | 2023-10-22 08:33 | PHA.MEDREC ---
Pharmacy Consult ? Medication Reconciliation Pharmacy has completed the medication reconciliation. Spoke to pt to confirm meds.
[2023-10-22] MEDS: Albumin Human 25 % 100 ML IV ×6 (09:10→23:46)
[2023-10-22] MEDS: Heparin Sodium,Porcine 5,000 UNIT/ML VIAL 5000 UNIT SUBCUT ×2 (09:14→17:00)
--- NOTE | 2023-10-22 09:22 | PC.NURSE ---
Provider notified of hypotension and duplicate fluids order- stating to continue at 125ml/hr for NS
[2023-10-22 09:33] LABS: ~Lactic Acid-LAB USE ONLY 2.1 mmol/L (0.5-2.0)
--- NOTE | 2023-10-22 10:13 | PC.NURSE ---
Provider notified of continued hypotension , patient alert and responsive, BS 108
[2023-10-22] MEDS: 0.9 % Sodium Chloride 1,000 ML 999 ML IVCONT ×2 (10:31→11:28)
--- NOTE | 2023-10-22 10:32 | PC.NURSE ---
Dr. Leon at bedside to asses patient, stop maintenance fluids and start bolus NS.
[2023-10-22 10:40] LABS: Glucose, Whole Blood 108 mg/dL (60-115)
[2023-10-22 11:09] LABS: Reflex Lactate? 2 Y
--- NOTE | 2023-10-22 11:23 | PC.NURSE ---
Patient hypotensive, message sent to provider, rapid response called, providers at bedside stating to start levo, dose of albumin and additional liter of NS. Fluids placed on pressure bag, levo started after 2nd 20g IV placed in left hand. ICU provider at bedside
--- NOTE | 2023-10-22 11:27 | HO.PM.IMPN ---
Subjective Subjective Date of Service: 10/22/23 Interval History: hypotension Review of Systems feels weak denies any sob or leg pain or abd pain Physical Exam Vital Signs: Vital Signs: Last Vital Signs Temp 98.0 F 10/22/23 04:22 Pulse 73 10/22/23 10:34 Resp 18 10/22/23 10:13 BP 91/32 L 10/22/23 10:34 Pulse Ox 99 10/22/23 10:34 O2 Del Method Room Air 10/22/23 10:34 BMI result Body Mass Index 25.3 similar to h&P-in additon patient is genralised weak, hypotensive. Objective Data Active Medications Glucose (Glucose Gel 15 Gm Gel..Gram.) 15 gm PO Q15M PRN; Protocol PRN Reason: per Hypoglycemia Standing Ord. Heparin Sodium (Porcine) (Heparin Sodium,Porcine 5,000 Unit/Ml Vial) 5,000 unit SUBCUT Q8H [facility] Last Admin: 10/22/23 09:14 Dose: 5,000 unit Documented By: BUBBA Dextrose (D10) 250 mls @ 750 mls/hr IV Q15M PRN PRN Reason: per Hypoglycemia Standing Ord. Last Infusion: 10/22/23 00:47 Dose: Infused Documented By: MOUSTAPHA Dextrose (D10) 250 mls @ 750 mls/hr IV Q15M PRN; Protocol PRN Reason: per Hypoglycemia Standing Ord. Piperacillin Sod/Tazobactam (Sod 2.25 gm/ Sodium Chloride) 50 mls @ 100 mls/hr IV Q8H [facility] Last Infusion: 10/22/23 06:46 Dose: Infused Documented By: LIZBET Sodium Chloride (Ns) 1,000 mls @ 125 mls/hr IVCONT .Q8H [facility] Last Admin: 10/22/23 06:40 Dose: 125 mls/hr Documented By: LIZBET Acetaminophen (Ofirmev) 1,000 mg in 100 mls @ 400 mls/hr IV Q6H [facility] Last Infusion: 10/22/23 07:54 Dose: Infused Documented By: BUBBA Albumin Human (Kedbumin 25 %) 100 mls @ 100 mls/hr IV Q6H [facility] Stop: 10/23/23 03:29 Last Infusion: 10/22/23 10:14 Dose: Infused Documented By: BUBBA Sodium Chloride (Ns) 1,000 mls @ 999 mls/hr IVCONT .Q1H1M [facility] Stop: 10/22/23 12:30 Last Admin: 10/22/23 10:31 Dose: 999 mls/hr Documented By: BUBBA Sodium Chloride (Ns) 1,000 mls @ 500 mls/hr IVCONT .Q2H [facility] Stop: 10/22/23 13:29 Albumin Human (Kedbumin 25 %) 100 mls @ 100 mls/hr IV Q6H [facility] Stop: 10/23/23 06:29 Norepinephrine Bitartrate (Levophed) 8 mg in 250 mls @ 0 mls/hr IV .Q0M [facility]; Protocol Insulin Human Lispro (Insulin Lispro 100 Unit/Ml 3 Ml Vial) 0 unit SUBCUT QIDACHS [facility]; Protocol Last Admin: 10/22/23 07:51 Dose: Not Given Documented By: BUBBA Non-Admin Reason: No Insulin Coverage Magnesium Hydroxide (Milk Of Magnesia 30 Ml Oral.Susp) 30 ml PO DAILY PRN PRN Reason: Constipation Pharmacy Consult (Consult Rx Vancomycin Dosing) 1 each MISCELLANE DAILY PRN PRN Reason: Consult order Polyethylene Glycol (Polyethylene Glycol 3350 17 Gm Powd.Pack) 17 gm PO DAILY PRN PRN Reason: Constipation Sodium Chloride (0.9 % Sodium Chloride Flush 3 Ml Syringe) [facility] Last Admin: 10/22/23 07:10 Dose: Not Given Documented By: BUBBA Non-Admin Reason: IV Running Labs 10/22/23 05:50 10/22/23 05:50 Labs: Laboratory Results - last 24 hr 10/21/23 10/21/23 10/21/23 20:26 20:42 20:43 MCV 97.1 MCH 32.4 MCHC 33.4 RDW 14.0 Plt Count 356 MPV 9.4 Immature Gran % (Auto) 0.8 H Neut % (Auto) 82.2 H Lymph % (Auto) 11.2 L Duc[place]ne % (Auto) 5.7 Eos % (Auto) 0.0 Baso % (Auto) 0.1 Lymph # (Auto) 2.4 Duchesne # (Auto) 1.2 Eos # (Auto) 0.0 Baso # (Auto) 0.0 Abs Immat Gran (auto) 0.18 H Absolute Neuts (auto) 17.7 H Absolute Nucleated RBC 0.000 Nucleated RBC % (auto) 0.0 VBG pH VBG pCO2 VBG pO2 VBG HCO3 VBG O2 Saturation VBG Base Excess Anion Gap 26 H Estim Creat Clear Calc 16.1 Estimated GFR 15 POC Glucose Random Glucose 92 Lactic Acid 3.0 H* Lactic Acid F/U @ 2Hr Calcium 9.3 D Magnesium 2.1 Total Bilirubin 0.4 AST 14 ALT 9 Alkaline Phosphatase 123 H Total Creatine Kinase Troponin I High Sens 13.6 D B-Natriuretic Peptide 147 H Total Protein 6.6 Albumin 2.7 L Influenza Type A (PCR) NEGATIVE Influenza Type B (PCR) NEGATIVE RSV RNA Qual (PCR) NEGATIVE SARS-CoV-2 RNA (RT-PCR) NEGATIVE 10/21/23 10/21/23 10/21/23 22:33 22:53 23:34 MCV MCH MCHC RDW Plt Count MPV Immature Gran % (Auto) Neut % (Auto) Lymph % (Auto) Duc[place]ne % (Auto) Eos % (Auto) Baso % (Auto) Lymph # (Auto) Duchesne # (Auto) Eos # (Auto) Baso # (Auto) Abs Immat Gran (auto) Absolute Neuts (auto) Absolute Nucleated RBC Nucleated RBC % (auto) VBG pH 7.25 L VBG pCO2 41 VBG pO2 35 VBG HCO3 18 L VBG O2 Saturation 56.0 VBG Base Excess -8.5 Anion Gap Estim Creat Clear Calc Estimated GFR POC Glucose 79 98 Random Glucose Lactic Acid Lactic Acid F/U @ 2Hr Calcium Magnesium Total Bilirubin AST ALT Alkaline Phosphatase Total Creatine Kinase Troponin I High Sens B-Natriuretic Peptide Total Protein Albumin Influenza Type A (PCR) Influenza Type B (PCR) RSV RNA Qual (PCR) SARS-CoV-2 RNA (RT-PCR) 10/21/23 10/22/23 10/22/23 23:47 00:06 00:19 MCV MCH MCHC RDW Plt Count MPV Immature Gran % (Auto) Neut % (Auto) Lymph % (Auto) Duc[place]ne % (Auto) Eos % (Auto) Baso % (Auto) Lymph # (Auto) Duchesne # (Auto) Eos # (Auto) Baso # (Auto) Abs Immat Gran (auto) Absolute Neuts (auto) Absolute Nucleated RBC Nucleated RBC % (auto) VBG pH VBG pCO2 VBG pO2 VBG HCO3 VBG O2 Saturation VBG Base Excess Anion Gap Estim Creat Clear Calc Estimated GFR POC Glucose 99 84 69 Random Glucose Lactic Acid Lactic Acid F/U @ 2Hr Calcium Magnesium Total Bilirubin AST ALT Alkaline Phosphatase Total Creatine Kinase Troponin I High Sens B-Natriuretic Peptide Total Protein Albumin Influenza Type A (PCR) Influenza Type B (PCR) RSV RNA Qual (PCR) SARS-CoV-2 RNA (RT-PCR) 10/22/23 10/22/23 10/22/23 00:36 00:39 02:00 MCV MCH MCHC RDW Plt Count MPV Immature Gran % (Auto) Neut % (Auto) Lymph % (Auto) Duc[place]ne % (Auto) Eos % (Auto) Baso % (Auto) Lymph # (Auto) Duchesne # (Auto) Eos # (Auto) Baso # (Auto) Abs Immat Gran (auto) Absolute Neuts (auto) Absolute Nucleated RBC Nucleated RBC % (auto) VBG pH 7.26 L VBG pCO2 43 VBG pO2 30 VBG HCO3 19 L VBG O2 Saturation 46.0 VBG Base Excess -6.7 Anion Gap 19 Estim Creat Clear Calc 16.3 Estimated GFR 15 POC Glucose 107 Random Glucose 197 H Lactic Acid Lactic Acid F/U @ 2Hr 3.8 H* Calcium 8.3 L D Magnesium Total Bilirubin AST ALT Alkaline Phosphatase Total Creatine Kinase 41 Troponin I High Sens B-Natriuretic Peptide Total Protein Albumin Influenza Type A (PCR) Influenza Type B (PCR) RSV RNA Qual (PCR) SARS-CoV-2 RNA (RT-PCR) 10/22/23 10/22/23 10/22/23 05:50 07:44 09:07 MCV 97.3 MCH 32.4 MCHC 33.3 RDW 13.9 Plt Count 289 MPV 9.4 Immature Gran % (Auto) 0.7 H Neut % (Auto) 84.3 H Lymph % (Auto) 7.7 L Duc[place]ne % (Auto) 7.1 Eos % (Auto) 0.0 Baso % (Auto) 0.2 Lymph # (Auto) 1.5 Duchesne # (Auto) 1.4 H Eos # (Auto) 0.0 Baso # (Auto) 0.0 Abs Immat Gran (auto) 0.14 H Absolute Neuts (auto) 16.0 H Absolute Nucleated RBC 0.000 Nucleated RBC % (auto) 0.0 VBG pH VBG pCO2 VBG pO2 VBG HCO3 VBG O2 Saturation VBG Base Excess Anion Gap 18 Estim Creat Clear Calc 17.3 Estimated GFR 17 POC Glucose 77 Random Glucose 134 H Lactic Acid 2.1 H* Lactic Acid F/U @ 2Hr 2.1 H* Calcium 8.2 L Magnesium Total Bilirubin 0.4 AST 14 ALT 9 Alkaline Phosphatase 96 Total Creatine Kinase Troponin I High Sens B-Natriuretic Peptide Total Protein 5.2 L Albumin 2.2 L Influenza Type A (PCR) Influenza Type B (PCR) RSV RNA Qual (PCR) SARS-CoV-2 RNA (RT-PCR) 10/22/23 10:13 MCV MCH MCHC RDW Plt Count MPV Immature Gran % (Auto) Neut % (Auto) Lymph % (Auto) Duchesne % (Auto) Eos % (Auto) Baso % (Auto) Lymph # (Auto) Duc[place]ne # (Auto) Eos # (Auto) Baso # (Auto) Abs Immat Gran (auto) Absolute Neuts (auto) Absolute Nucleated RBC Nucleated RBC % (auto) VBG pH VBG pCO2 VBG pO2 VBG HCO3 VBG O2 Saturation VBG Base Excess Anion Gap Estim Creat Clear Calc Estimated GFR POC Glucose 108 Random Glucose Lactic Acid Lactic Acid F/U @ 2Hr Calcium Magnesium Total Bilirubin AST ALT Alkaline Phosphatase Total Creatine Kinase Troponin I High Sens B-Natriuretic Peptide Total Protein Albumin Influenza Type A (PCR) Influenza Type B (PCR) RSV RNA Qual (PCR) SARS-CoV-2 RNA (RT-PCR) Assessment and Plan (1) Hypotension: Status: Acute Plan 78-year-old male admitted the hospital this morning(please see h&p for details) because of JIMBO, hyperkalemia, metabolic acidosis, lactic acidosis, possible acute toxic metabolic encephalopathy, sepsis secondary to lower extremity cellulitis. rapid response this morning :Patient is hypotensive: Multifactorial(sepsis, hypoalbuminemia, poor oral intake, JIMBO). acute lactic acidosis-possible multifactroial ( metformin use and/or sepsis) Ordered 2 L bolus and maintance fluids, albumin, lactic acid, blood culture,continue vanco/zosyn. acute toxic metabolic encephalopathy seems similar . d/w Icu patient will be going to icu.,added levophed. please see h&p note for further details. jimbo -ivf as above. hyperkalemia -resolving. above management d/w Icu indetail. Quality Stroke Does the patient have a stroke diagnosis?: No VTE Prior VTE?: No VTE Risk Level:: Medical - moderate - high VTE Device Contraindication: N/A - Device Ordered VTE Drug Contraindication: N/A - Med Ordered
--- NOTE | 2023-10-22 11:37 | PC.NURSE ---
levo started at 11:22am, titrated to 0.7mcg/kg/min at 11:27, titrated to 0.9mcg/kg/min at 11:32am with improvement in BP
[2023-10-22] MEDS: Norepinephrine Bitartrate/D5W 8 MG/250 ML PLAST..BAG 16.48 MG IV (11:43)
--- NOTE | 2023-10-22 11:52 | PC.NURSE ---
IC MD at bedside stating to run maintenance fluids as bolus. levo, albumin, x 3 L NS infusing
--- NOTE | 2023-10-22 12:24 | MHC.EDTECH ---
@12:15PM SON/IRISH CALLS TO SPEAK WITH A DOCTOR ABOUT HIS FATHER/THIS PT LEAVES A PHONE NUMBER OF [phone]...DR REBOLLEDO MADE AWARE VIA [facility] (formerly [facility])
--- NOTE | 2023-10-22 12:31 | PC.NURSE ---
Bladder scanned for 371, no urinary output , transferred to ICU by anayeli and RN
[2023-10-22 12:40] LABS: Lactic Acid 2.4 mmol/L (0.5-2.0)
--- NOTE | 2023-10-22 12:41 | PC.NURSE ---
Report given t WINDOWS APPLICATION ADMINISTRATOR, sons contact info given to nurse so ICU MD can call son
--- NOTE | 2023-10-22 12:49 | PHA.PROG ---
Admission Date/Time: October 22, 2023 01:59 Indication: Skin + skin structure Weight in k.9 kg Adjusted body weight in K.76 kg Dysart body weight in Kg: Obesity Dosing Indication % IBW: BMI 25.3 Serum Creatinine - Last 168 Hours 10/21/23 10/22/23 10/22/23 20:42 00:39 05:50 Creatinine 3.84 H 3.79 H 3.57 H Estimated CrCl and GFR - Last 168 Hours 10/21/23 10/22/23 10/22/23 20:42 00:39 05:50 Estim Creat Clear Calc 16.1 16.3 17.3 Estimated GFR 15 15 17 Vancomycin Loading Dose: 2000 x1 Current Vancomycin Dosing Regimen: 500 mg Q24H Vancomycin Monitoring using AUC goal of 400 - 600 range with trough as surrogate marker: 487 Date and Time for next Vancomycin Level to be drawn: 17.8 Pharmacist Comments on Vancomycin Plan: Creatinine function is very poor, put in trough for 10/22 @0700, pended 500 mg Q24H order to re-evaulate dosing based on trough and renal function on 10/22. Vancomycin dosing will take advantage of [employer] as a clinical decision support tool that uses Bayesian modeling to calculate individual patient's pharmacokinetic parameters and forecast the patient's drug concentration time course with the target goal AUC 24 range of 400 - 600 mg/L/hr.
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
[2023-10-22] MEDS: fentaNYL citrate/PF 100 MCG/2 ML VIAL 50 MCG IVPUSH (13:40)
[2023-10-22 14:10] LABS: Reflex Lactate? Lactic Acid Added
[2023-10-22 14:48] LABS: ~Lactic Acid-LAB USE ONLY 2.4 mmol/L (0.5-2.0)
--- NOTE | 2023-10-22 15:27 | MHC.CM.PN ---
IMM / DELIVERED TO PT'S HCP/FRIEND LEATHA ALONSO AT 1515PM DUE TO SOMNOLENCE, PER DISCUSSION W/LEATHA IMM TO BE LEFT AT BEDSIDE, LEATHA REPORTS PT LIVES ALONE, USES A WC AND INDEP TXFRS IN AND OUT OF BED AND TO/FROM TOILET, PT HAS [facility] FOR WOUND CARE AND HOME PT, LEATHA REPORTS PT SOUNDED DIFFERENT ON THE PHONE THIS WEEK AND THAT HIS SON THOUGHT SO WELL. WHEN CM REQUESTED PT'S SON'S CONTACT INFO LEATHA REPORTED HE DOES NOT KNOW PT'S SON'S NAME OR NUMBER, HOWEVER HE GIVES VERBAL CONSENT FOR CM/[facility] TO GIVE INFO TO PT'S SON IF HE CALLS AND DIRECTED CM TO TRY TO GET NUMBER FROM PT'S PHONE. LEATHA WILL BE GOING TO PT'S APT EVERY DAY TO FEED HIS CAAT WHILE HE IS HERE IN THE HOSPITAL. PCP AND HCP ON FILE.
--- NOTE | 2023-10-22 15:41 | HO.WOUND ---
Wound Consult: Initial 78yr old Male admitted to [facility] on 10/22/23 - See progress notes and H&P for detailed history.? Wound consult placed for Left Foot and Sacral Wound POA.? Patient is ICU level of care and treats in the outpatient wound clinic for the Left foot. Last visit is documented as 08/30/23 and next appointment is schedule for 10/28/23 per chart review. Sacrococcygeal and Left Ischium Etiology: ?Unstageable Pressure Injuries - ?Present on Admission Wound Bed: Sacrococcygeal area - coccyx and left sacrum with black eschar and necrotic tissue surrounding tissue is noted for MASD (Moisture Associated Skin Damage) red and scattered areas of partial thickness tissue loss and dried fecal material unable to be fully removed despite active cleansing. Left Ischium - black eschar and necrotic tissue surrounding tissue is noted for MASD (Moisture Associated Skin Damage) red and scattered areas of partial thickness tissue loss and dried fecal material unable to be fully removed despite active cleansing. Drainage / Odor: unablet o assessed at the time of my consult - cleansing underway Edges: ? irregular Valerie wound: ?MASD - Red erythema - No Induration, Fluctuance or Warmth noted Pain: patient reports pain Goals of Treatment: ? Triad to sooth red irritated tissue - and to allow for autolytic debridement of eschar and necrotic tissue Left Whole Foot Etiology: ??Venous wound - Lymphedema - treats at outpt wound clinic Measurements: foot in its entirety Wound Bed: Lateral and Medial areas with adherent thick yellow brown black slough Drainage / Odor: Foul smelling drainage yellow creamy drainage noted - foul smell lessened after cleansing but remains malodorous Edges: ? irregular Valerie wound: ?Red erythema, macerated Pain: patient reports significant pain Goals of Treatment: ? Hydrofiber AG applied for moisture management - will assess tomorrow and if odor remains and foot remains as concerning will switch to Dakins. Provider to consider Surgery for debridement and imaging to rule out depth to wound. Recommendations: 1. Turn and Reposition every 2 hours and as needed for patient comfort.? Use pillows or wedges to support off loading positions. 2. Off Load all bony prominences with use of pillows and heel boots if needed.? Apply Preventative foams where needed. ? 3. Monitor for incontinence and moisture control, use barrier creams when needed for prevention and treatment. 4. Provide adequate and supplemental nutrition.? 5. Order or Continue low air loss mattress. 6. When applicable maintain blood glucose levels per Providers order. 7. Sacrococcygeal and Left Ischium - Off Load Pressure - Cleanse with PH balance spray or wipes, pat dry. ?Apply thin layer of Triad to wound bed - only pat and dab no scrub and rub when soiling occurs. Reapply thin layer PRN after each episode of incontinence. 8. Left Lower Leg - Elevate lower legs off of surface of bed with use of pillows.? Cleanse with NS, Pat dry.? Apply vaseline to both legs, apply layer of Durafiber AG to open wound beds secure with ABD pad, gauze wrap and tape.? Change every other day. Re-consult wound care Nurse for wound deterioration or wound changes.
[2023-10-22] MEDS: 0.9 % Sodium Chloride Flush 3 ML SYRINGE IVFLUSH (15:44)
[2023-10-22 16:26] LABS: Reflex Lactate? 2 Y
[2023-10-22 16:43] LABS: Glucose, Whole Blood 151 mg/dL (60-115)
[2023-10-22] MEDS: Norepinephrine Bitartrate/D5W 8 MG/250 ML PLAST..BAG 68.91 MG IV ×2 (16:47→19:56)
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
[2023-10-22 18:49] LABS: Alanine Aminotransferase 7 U/L (0-40); Albumin Level 3.2 g/dL (3.5-5.0); Alkaline Phosphatase 80 U/L (39-117); Anion Gap 19 (12-20); Aspartate Amino Transferase 17 U/L (5-37); Bilirubin Total 0.5 mg/dL (0.0-1.0); Blood Urea Nitrogen 49 mg/dL (9-16); Calcium 8.1 mg/dL (8.4-10.2); Carbon Dioxide 11 mmol/L (22-29); Chloride 107 mmol/L (96-108); Creatinine Clr Calc Pharmacy 20.5; Estimated Glomerular Filt Rate 20; Glucose Random 170 mg/dL (60-115); Potassium 4.9 mmol/L (3.3-5.1); Sodium 132 mmol/L (135-145); Total Protein 5.8 g/dL (6.5-8.0)
--- NOTE | 2023-10-22 18:50 | P.CONCC_ITS ---
History of Present Illness Data of Consult Service Date: 10/22/23 Primary Care Provider: Billy Longoria MD HPI Reason for consult: Hypotension History is very limited as the patient is obtunded, history is reviewed from the chart 78-year-old male with past medical history of diabetes mellitus, COPD not on home oxygen, chronic stasis edema of lower extremities was found poorly responsive with slurred speech by his son at his home so EMS was called. Patient was initially admitted to the hospital service at 04:00 today but continued to be hypotensive despite multiple fluid boluses over 3-4 L so MICU was consulted for admission. On labs patient also has a JIMBO, he is encephalopathic possibly due to ongoing sepsis and septic shock. Review of Systems 2 Review of Systems: Unable to obtain as patient is obtunded [facility] Past Medical History Medical History Stasis ulcer of right lower extremity Obesity (BMI 30-39.9) Depression Psoriasis Primary osteoarthritis of both knees Vitamin D deficiency Coronary artery disease Benign essential hypertension Type 2 diabetes mellitus with diabetic neuropathy, unspecified COPD (chronic obstructive pulmonary disease) FADY (obstructive sleep apnea) Neuropathy Pulmonary hypertension HLD (hyperlipidemia) Family History Family History Father Medical history unknown Mother Cancer Surgical History Surgical History No pertinent past surgical history Social History Social History Household Members: None Housing: Apartment Do you presently have visiting nurse or other home services: Yes ([facility] and [employer]) Alcohol intake: current Alcohol intake frequency: does not drink Alcohol type: beer and wine Patient Tobacco Use Status: Never used Tobacco Tobacco use type: Cigarette Cigarette Packs Per Day: 0.5 Cigarettes Per Day: 5 Years Smoked: 50 e-Cigarette/Vaping Use: Never Used Second Hand Smoke Exposure: No Advance Directives Date on File: 03/05/23 service: Yes Current occupational status: retired Cognitive needs: No Hearing needs: No Vision needs: No Meds Allergies Allergy/AdvReac Type Severity Reaction Status Date / Time Fish Containing Products Allergy Severe ANAPHYLAXIS Verified 10/21/23 18:15 shellfish derived Allergy Severe ANAPHYLAXIS Verified 10/21/23 18:15 doxycycline AdvReac Intermediate Rash Verified 10/21/23 18:15 Active Medications: Current Medications Glucose (Glucose Gel 15 Gm Gel..Gram.) 15 gm PO Q15M PRN; Protocol PRN Reason: per Hypoglycemia Standing Ord. Heparin Sodium (Porcine) (Heparin Sodium,Porcine 5,000 Unit/Ml Vial) 5,000 unit SUBCUT Q8H [facility] [place] Last Admin: 10/22/23 17:00 Dose: 5,000 unit Dextrose (D10) 250 mls @ 750 mls/hr IV Q15M PRN PRN Reason: per Hypoglycemia Standing Ord. Last Infusion: 10/22/23 00:47 Dose: Infused Dextrose (D10) 250 mls @ 750 mls/hr IV Q15M PRN; Protocol PRN Reason: per Hypoglycemia Standing Ord. Piperacillin Sod/Tazobactam (Sod 2.25 gm/ Sodium Chloride) 50 mls @ 100 mls/hr IV Q8H [facility] [place] Last Infusion: 10/22/23 14:41 Dose: Infused Sodium Chloride (Ns) 1,000 mls @ 125 mls/hr IVCONT .Q8H [facility] [place] Last Admin: 10/22/23 15:40 Dose: 125 mls/hr Acetaminophen (Ofirmev) 1,000 mg in 100 mls @ 400 mls/hr IV Q6H [facility] [place] Last Admin: 10/22/23 18:01 Dose: Not Given Albumin Human (Kedbumin 25 %) 100 mls @ 100 mls/hr IV Q6H [facility] [place] Stop: 10/23/23 03:29 Last Infusion: 10/22/23 15:49 Dose: Infused Albumin Human (Kedbumin 25 %) 100 mls @ 100 mls/hr IV Q6H [facility] [place] Stop: 10/23/23 06:29 Last Infusion: 10/22/23 18:02 Dose: Infused Norepinephrine Bitartrate (Levophed) 8 mg in 250 mls @ 0 mls/hr IV .Q0M [facility] [place]; Protocol Last Admin: 10/22/23 16:47 Dose: 0.46 mcg/kg/min, 68.91 mls/hr Vancomycin HCl 500 mg/ Sodium (Chloride) 110 mls @ 110 mls/hr IV Q24H [facility] [place] Vasopressin (Vasostrict) 20 unit in 100 mls @ 12 mls/hr IVCONT .Q8H20M [facility] [place] Last Admin: 10/22/23 15:43 Dose: Not Given Insulin Human Lispro (Insulin Lispro 100 Unit/Ml 3 Ml Vial) 0 unit SUBCUT QIDACHS [facility] [place]; Protocol Last Admin: 10/22/23 17:02 Dose: Not Given Magnesium Hydroxide (Milk Of Magnesia 30 Ml Oral.Susp) 30 ml PO DAILY PRN PRN Reason: Constipation Pharmacy Consult (Consult Rx Vancomycin Dosing) 1 each MISCELLANE DAILY PRN PRN Reason: Consult order Polyethylene Glycol (Polyethylene Glycol 3350 17 Gm Powd.Pack) 17 gm PO DAILY PRN PRN Reason: Constipation Sodium Chloride (0.9 % Sodium Chloride Flush 3 Ml Syringe) 3 ml IVFLUSH QSHIFT [facility] [place] Last Admin: 10/22/23 15:44 Dose: 3 ml Sodium Hypochlorite (Sodium Hypochlorite 0.25% 473 Ml Solution) 1 appl TOPICAL BID [facility] [place] Home Medications ?Medication ?Instructions ?Recorded ?Confirmed ?Last Taken ?Type gabapentin 300 mg capsule 300 mg PO TID PRN NEUROPATHIC Pain 10/22/23 10/22/23 Unknown History glipizide 10 mg tablet 10 mg PO BID 10/22/23 10/22/23 10/21/23 History Physical Exam 2 Vital Signs: Vital Signs: Last Vital Signs Temp 97.0 F 10/22/23 18:00 Pulse 66 10/22/23 18:00 Resp 15 10/22/23 18:00 BP 134/65 10/22/23 18:00 Pulse Ox 98 10/22/23 18:00 O2 Del Method Room Air 10/22/23 18:00 BMI result Body Mass Index 26.0 General: acute distress, in distress, ill appearing and tired appearing, poor hygiene Nutritional Appearance: Poorly nourished and normal weight Orientation/consciousness: oriented to person, oriented to place and oriented to time Eyes: General: appearance normal, both eyes and all related structures Visual Sosa: normal visual sosa by confrontation Alignment and Position: alignment normal and position normal Chest: Chest palpation & inspection: normal inspection of the chest, normal palpation of entire chest wall Resp: Effort & Inspection: normal respiratory effort, bilateral air entry equal, no added sounds present Cardio: Jugular venous distension: no JVD Rate: regular rate Rhythm: abnormal rhythm Heart sounds: S1 normal heart sound present and S2 normal heart sound present GI: Inspection: Yes normal to inspection and Yes Abdominal wall edema Palpation (GI): nontender, no guarding, no hepatosplenomegaly and No Bladder palpation abnormal : General: Yes bladder normal to inspection, Yes bladder normal to palpation and No Bladder palpation abnormal Skin: General skin exam: Bilateral lower extremity swollen, discolored, red, smells bad Neuro: General: oriented to person, oriented to place, oriented to time and moves all extremities Results Labs 10/22/23 05:50 10/22/23 18:18 Labs: Short CBC 10/21/23 10/22/23 Range/Units 20:42 05:50 WBC 21.5 H 18.9 H (4.8-10.8) X10*3/uL Hgb 15.9 D 13.4 L (14.0-18.0) g/dl Hct 47.6 D 40.2 L (42.0-52.0) % Plt Count 356 289 (160-400) X10*3/uL BMP 10/21/23 10/22/23 10/22/23 20:42 00:39 05:50 Sodium 133 L 133 L 131 L Potassium 6.1 H* D 5.2 H 4.8 Chloride 97 100 99 Carbon Dioxide 16 L 19 L 19 L BUN 60 H 59 H 58 H Creatinine 3.84 H 3.79 H 3.57 H Calcium 9.3 D 8.3 L D 8.2 L 10/22/23 18:18 Sodium 132 L Potassium 4.9 Chloride 107 Carbon Dioxide 11 L BUN 49 H Creatinine 3.01 H Calcium 8.1 L Cardiac Enzymes 10/22/23 Range/Units 00:39 Total Creatine Kinase 41 (38-174) U/L Liver Function 10/21/23 10/22/23 10/22/23 Range/Units 20:42 05:50 18:18 Total Bilirubin 0.4 0.4 0.5 (0.0-1.0) mg/dL AST 14 14 17 (5-37) U/L ALT 9 9 7 (0-40) U/L Alkaline Phosphatase 123 H 96 80 (39-117) U/L Albumin 2.7 L 2.2 L 3.2 L (3.5-5.0) g/dL Assessment and Plan (1) Septic shock: Status: Acute (2) Acute hyperkalemia: Status: Acute (3) Acute kidney injury: Status: Acute (4) Stasis edema with ulcer of left lower extremity: Status: Acute (5) COPD (chronic obstructive pulmonary disease): Qualifiers: COPD type: unspecified COPD Qualified Code(s): J44.9 - Chronic obstructive pulmonary disease, unspecified Status: Acute (6) Acute encephalopathy: Status: Acute Plan Acute encephalopathy: Secondary to metabolic encephalopathy from severe sepsis Less likely to be intracranial pathology given systemic findings of JIMBO, shock Septic shock: Currently on Levophed support, titrate to keep the map above 65 mm Hg Bedside echo showed close to normal LV systolic function, RV small, IVC 1.5 cm and fluctuating with respiration Respiratory: Breathing stable, no secretion, low risk for aspiration. So we will monitor him very closely to see if he needs intubation due to poor mental status GI: We will hold on feeds for now due to poor mental status Acute kidney injury: Possibly secondary to sepsis leading to ATN; also had urinary retention of about 1.2 L on placing Cummings catheter so possibly also has a component of obstructive uropathy Creatinine up to 3.51, resuscitated with IV fluids we will closely monitor renal function Monitor I's and O's Infectious Disease: Cellulitis of the lower extremities is the possible source of infection started the patient on very broad-spectrum antibiotics Surgery consult for possible need for debridement of the lower extremities X-ray feet did not show any evidence of osteomyelitis, however the skin changes looks superficial it is less likely that the patient has osteomyelitis Heme: Leukocytosis secondary to infection Endocrine: We will start on sliding scale insulin to control hyperglycemia We will get HbA1c in the morning Prophylaxis: Heparin, pantoprazole
[2023-10-22 18:51] LABS: Lactic Acid 2.3 mmol/L (0.5-2.0)
[2023-10-22 19:33] LABS: Cancel Lactic Acid Canceled
[2023-10-22 20:50] LABS: Glucose, Whole Blood 193 mg/dL (60-115)
[2023-10-22 21:32] LABS: Appearance Urine Cloudy; Color Urine Yellow; Glucose Urine UA Negative (Negative); Leukocyte Esterase Urine Trace (Negative); Nitrite Urine Negative (Negative); UMIC TRIGGER UACC YES; Urine Blood Large (3+) (Negative); Urine Ketones Negative (Negative); Urine Protein 30 (1+) mg/dL (Neg-Trace)
[2023-10-22 21:44] LABS: Bacteria Urine None Seen (None Seen); RBC Urine >20 /HPF (0-2); WBC Urine 0-5 /HPF (0-5)
[2023-10-22] MEDS: Norepinephrine Bitartrate/D5W 8 MG/250 ML PLAST..BAG 62.92 MG IV (23:45)
[2023-10-23] VITALS (35 sets, daily range): BP systolic 76–140; BP diastolic 37–67; PULSE 73–135; RESP 14–93; TEMP 37–37.7; O2SAT 91–98; BMI 26.0; BMI 26.3
[2023-10-23] MEDS: Heparin Sodium,Porcine 5,000 UNIT/ML VIAL 5000 UNIT SUBCUT ×3 (00:04→17:26)
[2023-10-23] MEDS: 0.9 % Sodium Chloride Flush 3 ML SYRINGE IVFLUSH ×3 (00:06→17:28)
[2023-10-23] MEDS: Albumin Human 25 % 100 ML IV ×4 (02:28→22:30)
[2023-10-23] MEDS: Norepinephrine Bitartrate/D5W 8 MG/250 ML PLAST..BAG 62.92 MG IV ×6 (03:42→23:07)
[2023-10-23] MEDS: Piperacillin Sodium/Tazobactam 2.25 GM in 0.9 % Sodium Chloride 50 ML IV ×3 (05:19→21:11)
[2023-10-23] MEDS: 0.9 % Sodium Chloride 1,000 ML 125 ML IVCONT (05:20)
[2023-10-23 06:31] LABS: MANUAL DIFF FLAG NO
[2023-10-23 06:37] LABS: Basophils Percent Auto 0.1 % (0-2); Hematocrit 35.9 % (42.0-52.0); Hemoglobin 11.7 g/dl (14.0-18.0); Imm Gran Abs Auto 0.17 X10*3/uL (0.00-0.03); Imm Gran Pct Auto 1.2 % (0.0-0.4); Lymphocytes Absolute Auto 1.1 X10*3/uL (1.2-4.9); Lymphocytes Percent Auto 8.2 % (20-40); Mean Corpuscular HGB Conc 32.6 g/dl (31.0-36.0); Mean Corpuscular Hemoglobin 32.4 pg (27.0-33.0); Mean Corpuscular Volume 99.4 fL (80.0-98.0); Mean Platelet Volume 9.6 fL (9.4-12.4); Monocytes Absolute Auto 0.7 X10*3/uL (0.1-1.2); Monocytes Percent Auto 4.8 % (2-11); Neutrophils Absolute Auto 11.8 x10*3/uL (2.0-8.3); Neutrophils Percent Auto 85.7 % (45-73); Platelet Count 200 X10*3/uL (160-400); Red Blood Count 3.61 X10*6/uL (4.60-5.80); White Blood Count 13.7 X10*3/uL (4.8-10.8)
[2023-10-23 07:07] LABS: Alanine Aminotransferase 6 U/L (0-40); Albumin Level 3.4 g/dL (3.5-5.0); Alkaline Phosphatase 64 U/L (39-117); Anion Gap 20 (12-20); Aspartate Amino Transferase 17 U/L (5-37); Bilirubin Total 0.5 mg/dL (0.0-1.0); Blood Urea Nitrogen 45 mg/dL (9-16); Calcium 8.1 mg/dL (8.4-10.2); Carbon Dioxide 10 mmol/L (22-29); Chloride 110 mmol/L (96-108); Creatinine Clr Calc Pharmacy 21.9; Estimated Glomerular Filt Rate 22; Glucose Random 162 mg/dL (60-115); Potassium 4.6 mmol/L (3.3-5.1); Sodium 135 mmol/L (135-145); Total Protein 5.7 g/dL (6.5-8.0)
[2023-10-23 07:42] LABS: Glucose, Whole Blood 159 mg/dL (60-115)
--- NOTE | 2023-10-23 08:49 | PM.CCPN ---
Subjective Subjective Date of Service: 10/23/23 Interval History: More awake this morning, nodding his head yes or no for questions Still requiring a significant dose of Levophed for vasopressor support about 0.42 micrograms/kg per minute this morning JIMBO slightly improving Overall I would say he is stable or slightly improving when compared to yesterday Critical Care Time (minutes): 40 Physical Exam Vital Signs: Vital Signs: Last Vital Signs Temp 99.9 F 10/23/23 08:00 Pulse 111 H 10/23/23 08:00 Resp 18 10/23/23 08:00 BP 113/56 L 10/23/23 08:00 Pulse Ox 95 10/23/23 08:00 O2 Del Method Room Air 10/23/23 08:00 BMI result Body Mass Index 26.0 General: acute distress, in distress, ill appearing and tired appearing Nutritional Appearance: Poorly nourished and normal weight Orientation/consciousness: Partly oriented to person and place Eyes: General: appearance normal, both eyes and all related structures Visual Toribio: normal visual toribio by confrontation Alignment and Position: alignment normal and position normal Chest: Chest palpation & inspection: normal inspection of the chest, normal palpation of entire chest wall and abnormal inspection of the chest Resp: Effort & Inspection: normal respiratory effort, bilateral air entry equal, crackles heard in the lung bases Cardio: Jugular venous distension: no JVD Rate: regular rate Rhythm: abnormal rhythm Heart sounds: S1 normal heart sound present and S2 normal heart sound present GI: Inspection: Yes normal to inspection and Yes Abdominal wall edema Palpation (GI): nontender, no guarding, no hepatosplenomegaly and No Bladder palpation abnormal : General: Yes bladder normal to inspection, Yes bladder normal to palpation and No Bladder palpation abnormal Skin: General skin exam: no rashes or lesions noted and elasticity normal Neuro: General: Partially oriented to place and person Objective Data Labs 10/23/23 05:54 10/23/23 05:54 Labs: Laboratory Results - last 24 hr 10/22/23 10/22/23 10/22/23 09:07 10:13 12:01 WBC RBC Hgb Hct MCV MCH MCHC RDW Plt Count MPV Immature Gran % (Auto) Neut % (Auto) Lymph % (Auto) [place] % (Auto) Eos % (Auto) Baso % (Auto) Lymph # (Auto) [place] # (Auto) Eos # (Auto) Baso # (Auto) Abs Immat Gran (auto) Absolute Neuts (auto) Absolute Nucleated RBC Nucleated RBC % (auto) Sodium Potassium Chloride Carbon Dioxide Anion Gap BUN Creatinine Estim Creat Clear Calc Estimated GFR POC Glucose 108 Random Glucose Lactic Acid 2.4 H* Lactic Acid F/U @ 2Hr 2.1 H* Calcium Total Bilirubin AST ALT Alkaline Phosphatase Total Protein Albumin Urine Color Urine Appearance Urine pH Ur Specific [place] Urine Protein Urine Glucose (UA) Urine Ketones Urine Blood Urine Nitrite Ur Leukocyte Esterase Urine RBC Urine WBC Ur Squamous Epith Cells Urine Bacteria Hyaline Casts Urine Creatinine 10/22/23 10/22/23 10/22/23 14:24 16:39 18:18 WBC RBC Hgb Hct MCV MCH MCHC RDW Plt Count MPV Immature Gran % (Auto) Neut % (Auto) Lymph % (Auto) [place] % (Auto) Eos % (Auto) Baso % (Auto) Lymph # (Auto) [place] # (Auto) Eos # (Auto) Baso # (Auto) Abs Immat Gran (auto) Absolute Neuts (auto) Absolute Nucleated RBC Nucleated RBC % (auto) Sodium 132 L Potassium 4.9 Chloride 107 Carbon Dioxide 11 L Anion Gap 19 BUN 49 H Creatinine 3.01 H Estim Creat Clear Calc 20.5 Estimated GFR 20 POC Glucose 151 H Random Glucose 170 H Lactic Acid 2.3 H* Lactic Acid F/U @ 2Hr 2.4 H* Calcium 8.1 L Total Bilirubin 0.5 AST 17 ALT 7 Alkaline Phosphatase 80 Total Protein 5.8 L Albumin 3.2 L Urine Color Urine Appearance Urine pH Ur Specific [place] Urine Protein Urine Glucose (UA) Urine Ketones Urine Blood Urine Nitrite Ur Leukocyte Esterase Urine RBC Urine WBC Ur Squamous Epith Cells Urine Bacteria Hyaline Casts Urine Creatinine 10/22/23 10/22/23 10/23/23 20:47 21:12 05:54 WBC 13.7 H RBC 3.61 L Hgb 11.7 L Hct 35.9 L MCV 99.4 H MCH 32.4 MCHC 32.6 RDW 14.0 Plt Count 200 D MPV 9.6 Immature Gran % (Auto) 1.2 H Neut % (Auto) 85.7 H Lymph % (Auto) 8.2 L [place] % (Auto) 4.8 Eos % (Auto) 0.0 Baso % (Auto) 0.1 Lymph # (Auto) 1.1 L [place] # (Auto) 0.7 Eos # (Auto) 0.0 Baso # (Auto) 0.0 Abs Immat Gran (auto) 0.17 H Absolute Neuts (auto) 11.8 H Absolute Nucleated RBC 0.000 Nucleated RBC % (auto) 0.0 Sodium 135 Potassium 4.6 Chloride 110 H Carbon Dioxide 10 L* Anion Gap 20 BUN 45 H Creatinine 2.82 H Estim Creat Clear Calc 21.9 Estimated GFR 22 POC Glucose 193 H Random Glucose 162 H Lactic Acid Lactic Acid F/U @ 2Hr Calcium 8.1 L Total Bilirubin 0.5 AST 17 ALT 6 Alkaline Phosphatase 64 Total Protein 5.7 L Albumin 3.4 L Urine Color Yellow Urine Appearance Cloudy Urine pH 5.0 Ur Specific [place] 1.010 Urine Protein 30 (1+) H Urine Glucose (UA) Negative Urine Ketones Negative Urine Blood Large (3+) H Urine Nitrite Negative Ur Leukocyte Esterase Trace H Urine RBC >20 H Urine WBC 0-5 Ur Squamous Epith Cells 6-10 Urine Bacteria None Seen Hyaline Casts 6-10 Urine Creatinine 46.80 10/23/23 07:38 WBC RBC Hgb Hct MCV MCH MCHC RDW Plt Count MPV Immature Gran % (Auto) Neut % (Auto) Lymph % (Auto) [place] % (Auto) Eos % (Auto) Baso % (Auto) Lymph # (Auto) [place] # (Auto) Eos # (Auto) Baso # (Auto) Abs Immat Gran (auto) Absolute Neuts (auto) Absolute Nucleated RBC Nucleated RBC % (auto) Sodium Potassium Chloride Carbon Dioxide Anion Gap BUN Creatinine Estim Creat Clear Calc Estimated GFR POC Glucose 159 H Random Glucose Lactic Acid Lactic Acid F/U @ 2Hr Calcium Total Bilirubin AST ALT Alkaline Phosphatase Total Protein Albumin Urine Color Urine Appearance Urine pH Ur Specific [place] Urine Protein Urine Glucose (UA) Urine Ketones Urine Blood Urine Nitrite Ur Leukocyte Esterase Urine RBC Urine WBC Ur Squamous Epith Cells Urine Bacteria Hyaline Casts Urine Creatinine Microbiology Microbiology Results: Microbiology 10/21/23 20:24 Blood - Venous Blood Culture - Preliminary No growth after 24 hours. 10/21/23 20:24 Blood - Venous Blood Culture - Preliminary No growth after 24 hours. Progress Note: A&P Assessment and plan (1) Acute encephalopathy: Status: Acute (2) Septic shock: Status: Acute (3) Hypotension: Status: Acute (4) Acute hyperkalemia: Status: Acute (5) Acute kidney injury: Status: Acute (6) Sepsis: Status: Acute (7) Pneumonia: Status: Acute Plan Acute encephalopathy: Secondary to metabolic encephalopathy from severe sepsis, currently improving with antibiotics Less likely to be intracranial pathology given systemic findings of JIMBO, shock Septic shock: Currently on Levophed support, stable Levophed requirement about 0.42 micrograms/kg per minute; titrate to keep the map above 65 mm Hg Bedside echo showed close to normal LV systolic function, RV small, IVC 1.5 cm and fluctuating with respiration Respiratory: Breathing stable, no secretion, low risk for aspiration and mental status is slightly improved this morning low risk for intubation GI: We will start on NG tube feeds Acute kidney injury: Possibly secondary to sepsis leading to ATN; also had urinary retention of about 1.2 L on placing Cummings catheter so possibly also has a component of obstructive uropathy Creatinine up to 3.51 upon admission, down to 2.82 this morning As he is swollen we will give Lasix 80 mg b.i.d. today Monitor I's and O's Metabolic acidosis: Possibly secondary to lactic acidosis and acute kidney injury We will send beta hydroxybutyrate We will start on a bicarb drip at 100 cc/hour Infectious Disease: Cellulitis of the lower extremities is the possible source of infection started the patient on very broad-spectrum antibiotics Surgery consulted for possible need for debridement of the lower extremities X-ray feet did not show any evidence of osteomyelitis, however the skin changes looks superficial it is less likely that the patient has osteomyelitis We will send wound cultures Heme: Leukocytosis secondary to infection Endocrine: We will start on sliding scale insulin to control hyperglycemia We will get HbA1c Prophylaxis: Heparin, pantoprazole Quality Stroke Does the patient have a stroke diagnosis?: No VTE Prior VTE?: No VTE Risk Level:: Medical - moderate - high VTE Device Contraindication: N/A - Device Ordered VTE Drug Contraindication: N/A - Med Ordered
--- NOTE | 2023-10-23 09:18 | PM.CNGS ---
History of Present Illness Consult details Consult date: 10/23/23 Narrative: 78-year-old male with multiple medical problems including diabetes, chronic edema and ulcers of the lower extremities, COPD, admitted because of altered mental status. He was noted to be lethargic at home. He was brought to the surgical service because of chronic leg ulcers. This seems to have been worse on the left leg. He was diagnosed to have acute kidney injury and sepsis on admission. He does not really offer much with regards to his history. According to the H and P, he lives at home but seems to be requiring more care as he seems to have had declining health. His son planning to have him placed in a longterm. Review of Systems Constitutional: Constitutional: Denies chills and Denies fever(s) Respiratory: Respiratory: Denies cough Gastrointestinal: Gastrointestinal: Denies abdominal pain and Denies fecal incontinence Genitourinary: Genitourinary: Denies difficulty urinating Neurologic: Comments: Lethargy PMFSH Past Medical History Medical History (Updated 10/31/23 @ 09:26 by Tawanda Coto MD) Type 2 diabetes mellitus with diabetic neuropathy, unspecified Eschar Stasis ulcer of right lower extremity Obesity (BMI 30-39.9) Depression Psoriasis Primary osteoarthritis of both knees Vitamin D deficiency Coronary artery disease Benign essential hypertension COPD (chronic obstructive pulmonary disease) FAYD (obstructive sleep apnea) Neuropathy Pulmonary hypertension HLD (hyperlipidemia) Family History Family History Father Medical history unknown Mother Cancer Surgical History Surgical History No pertinent past surgical history Social History Social History Household Members: None Housing: Apartment Do you presently have visiting nurse or other home services: Yes ([facility] and [employer]) Alcohol intake: current Alcohol intake frequency: does not drink Alcohol type: beer and wine Patient Tobacco Use Status: Never used Tobacco Tobacco use type: Cigarette Cigarette Packs Per Day: 0.5 Cigarettes Per Day: 5 Years Smoked: 50 e-Cigarette/Vaping Use: Never Used Second Hand Smoke Exposure: No Advance Directives Date on File: 03/05/23 service: Yes Current occupational status: retired Cognitive needs: No Hearing needs: No Vision needs: No Meds Allergies Allergy/AdvReac Type Severity Reaction Status Date / Time Fish Containing Products Allergy Severe ANAPHYLAXIS Verified 10/21/23 18:15 shellfish derived Allergy Severe ANAPHYLAXIS Verified 10/21/23 18:15 doxycycline AdvReac Intermediate Rash Verified 10/21/23 18:15 Active Medications: Current Medications Glucose (Glucose Gel 15 Gm Gel..Gram.) 15 gm PO Q15M PRN; Protocol PRN Reason: per Hypoglycemia Standing Ord. Heparin Sodium (Porcine) (Heparin Sodium,Porcine 5,000 Unit/Ml Vial) 5,000 unit SUBCUT Q8H [facility] Last Admin: 10/23/23 00:04 Dose: 5,000 unit Dextrose (D10) 250 mls @ 750 mls/hr IV Q15M PRN PRN Reason: per Hypoglycemia Standing Ord. Last Infusion: 10/22/23 00:47 Dose: Infused Dextrose (D10) 250 mls @ 750 mls/hr IV Q15M PRN; Protocol PRN Reason: per Hypoglycemia Standing Ord. Piperacillin Sod/Tazobactam (Sod 2.25 gm/ Sodium Chloride) 50 mls @ 100 mls/hr IV Q8H [facility] Last Infusion: 10/23/23 06:11 Dose: Infused Sodium Chloride (Ns) 1,000 mls @ 125 mls/hr IVCONT .Q8H [facility] Last Infusion: 10/23/23 08:32 Dose: 0 mls/hr Norepinephrine Bitartrate (Levophed) 8 mg in 250 mls @ 0 mls/hr IV .Q0M [facility]; Protocol Last Admin: 10/23/23 07:32 Dose: 0.42 mcg/kg/min, 62.92 mls/hr Vancomycin HCl 500 mg/ Sodium (Chloride) 110 mls @ 110 mls/hr IV Q24H [facility] Vasopressin (Vasostrict) 20 unit in 100 mls @ 12 mls/hr IVCONT .Q8H20M [facility] Last Admin: 10/23/23 07:29 Dose: Not Given Insulin Human Lispro (Insulin Lispro 100 Unit/Ml 3 Ml Vial) 0 unit SUBCUT QIDACHS [facility]; Protocol Last Admin: 10/23/23 08:13 Dose: Not Given Magnesium Hydroxide (Milk Of Magnesia 30 Ml Oral.Susp) 30 ml PO DAILY PRN PRN Reason: Constipation Pharmacy Consult (Consult Rx Vancomycin Dosing) 1 each MISCELLANE DAILY PRN PRN Reason: Consult order Polyethylene Glycol (Polyethylene Glycol 3350 17 Gm Powd.Pack) 17 gm PO DAILY PRN PRN Reason: Constipation Sodium Chloride (0.9 % Sodium Chloride Flush 3 Ml Syringe) 3 ml IVFLUSH QSHIFT [facility] Last Admin: 10/23/23 07:33 Dose: 3 ml Sodium Hypochlorite (Sodium Hypochlorite 0.25% 473 Ml Solution) 1 appl TOPICAL BID [facility] Last Admin: 10/22/23 20:11 Dose: Not Given Home Medications ?Medication ?Instructions ?Recorded ?Confirmed ?Last Taken ?Type gabapentin 300 mg capsule 300 mg PO TID PRN NEUROPATHIC Pain 10/22/23 10/22/23 Unknown History glipizide 10 mg tablet 10 mg PO BID 10/22/23 10/22/23 10/21/23 History Physical Exam Vital Signs: Vital Signs: Last Vital Signs Temp 99.9 F 10/23/23 09:00 Pulse 114 H 10/23/23 09:00 Resp 22 H 10/23/23 09:00 BP 125/51 L 10/23/23 09:00 Pulse Ox 98 10/23/23 09:00 O2 Del Method Room Air 10/23/23 09:00 BMI result Body Mass Index 26.0 Const: Other: Very frail looking General: no acute distress Resp: Other: Mild shortness of breath Cardio: Other: Tachycardic GI: Palpation (GI): Soft to palpation Extrem: Other: Left leg - Superficial ulcer, circumferentially on the lower leg pitting from just below the knee all the way to the ankle, with significant leg edema, 2 areas with superficial eschar with aggregate size of about 4 x 4 cm, consisting of full-thickness of the skin on the left side Right leg with note of superficial ulcer, without eschar, involving the lower leg and ankle, clean Results Labs 10/31/23 05:09 10/31/23 05:15 Labs: Abnormal lab results 10/22/23 10/22/23 10/22/23 Range/Units 09:07 12:01 14:24 WBC (4.8-10.8) X10*3/uL RBC (4.60-5.80) X10*6/uL Hgb (14.0-18.0) g/dl Hct (42.0-52.0) % MCV (80.0-98.0) fL Immature Gran % (Auto) (0.0-0.4) % Neut % (Auto) (45-73) % Lymph % (Auto) (20-40) % Lymph # (Auto) (1.2-4.9) X10*3/uL Abs Immat Gran (auto) (0.00-0.03) X10*3/uL Absolute Neuts (auto) (2.0-8.3) x10*3/uL Sodium (135-145) mmol/L Chloride (96-108) mmol/L Carbon Dioxide (22-29) mmol/L BUN (9-16) mg/dL Creatinine (0.5-1.4) mg/dL POC Glucose (60-115) mg/dL Random Glucose (60-115) mg/dL Lactic Acid 2.4 H* (0.5-2.0) mmol/L Lactic Acid F/U @ 2Hr 2.1 H* 2.4 H* (0.5-2.0) mmol/L Calcium (8.4-10.2) mg/dL Total Protein (6.5-8.0) g/dL Albumin (3.5-5.0) g/dL Urine Protein (Neg-Trace) mg/dL Urine Blood (Negative) Ur Leukocyte Esterase (Negative) Urine RBC (0-2) /HPF 10/22/23 10/22/23 10/22/23 Range/Units 16:39 18:18 20:47 WBC (4.8-10.8) X10*3/uL RBC (4.60-5.80) X10*6/uL Hgb (14.0-18.0) g/dl Hct (42.0-52.0) % MCV (80.0-98.0) fL Immature Gran % (Auto) (0.0-0.4) % Neut % (Auto) (45-73) % Lymph % (Auto) (20-40) % Lymph # (Auto) (1.2-4.9) X10*3/uL Abs Immat Gran (auto) (0.00-0.03) X10*3/uL Absolute Neuts (auto) (2.0-8.3) x10*3/uL Sodium 132 L (135-145) mmol/L Chloride (96-108) mmol/L Carbon Dioxide 11 L (22-29) mmol/L BUN 49 H (9-16) mg/dL Creatinine 3.01 H (0.5-1.4) mg/dL POC Glucose 151 H 193 H (60-115) mg/dL Random Glucose 170 H (60-115) mg/dL Lactic Acid 2.3 H* (0.5-2.0) mmol/L Lactic Acid F/U @ 2Hr (0.5-2.0) mmol/L Calcium 8.1 L (8.4-10.2) mg/dL Total Protein 5.8 L (6.5-8.0) g/dL Albumin 3.2 L (3.5-5.0) g/dL Urine Protein (Neg-Trace) mg/dL Urine Blood (Negative) Ur Leukocyte Esterase (Negative) Urine RBC (0-2) /HPF 10/22/23 10/23/23 10/23/23 Range/Units 21:12 05:54 07:38 WBC 13.7 H (4.8-10.8) X10*3/uL RBC 3.61 L (4.60-5.80) X10*6/uL Hgb 11.7 L (14.0-18.0) g/dl Hct 35.9 L (42.0-52.0) % MCV 99.4 H (80.0-98.0) fL Immature Gran % (Auto) 1.2 H (0.0-0.4) % Neut % (Auto) 85.7 H (45-73) % Lymph % (Auto) 8.2 L (20-40) % Lymph # (Auto) 1.1 L (1.2-4.9) X10*3/uL Abs Immat Gran (auto) 0.17 H (0.00-0.03) X10*3/uL Absolute Neuts (auto) 11.8 H (2.0-8.3) x10*3/uL Sodium (135-145) mmol/L Chloride 110 H (96-108) mmol/L Carbon Dioxide 10 L* (22-29) mmol/L BUN 45 H (9-16) mg/dL Creatinine 2.82 H (0.5-1.4) mg/dL POC Glucose 159 H (60-115) mg/dL Random Glucose 162 H (60-115) mg/dL Lactic Acid (0.5-2.0) mmol/L Lactic Acid F/U @ 2Hr (0.5-2.0) mmol/L Calcium 8.1 L (8.4-10.2) mg/dL Total Protein 5.7 L (6.5-8.0) g/dL Albumin 3.4 L (3.5-5.0) g/dL Urine Protein 30 (1+) H (Neg-Trace) mg/dL Urine Blood Large (3+) H (Negative) Ur Leukocyte Esterase Trace H (Negative) Urine RBC >20 H (0-2) /HPF Short CBC 10/23/23 Range/Units 05:54 WBC 13.7 H (4.8-10.8) X10*3/uL Hgb 11.7 L (14.0-18.0) g/dl Hct 35.9 L (42.0-52.0) % Plt Count 200 D (160-400) X10*3/uL BMP 10/22/23 10/23/23 18:18 05:54 Sodium 132 L 135 Potassium 4.9 4.6 Chloride 107 110 H Carbon Dioxide 11 L 10 L* BUN 49 H 45 H Creatinine 3.01 H 2.82 H Calcium 8.1 L 8.1 L Liver Function 10/22/23 10/23/23 Range/Units 18:18 05:54 Total Bilirubin 0.5 0.5 (0.0-1.0) mg/dL AST 17 17 (5-37) U/L ALT 7 6 (0-40) U/L Alkaline Phosphatase 80 64 (39-117) U/L Albumin 3.2 L 3.4 L (3.5-5.0) g/dL Urine 10/22/23 Range/Units 21:12 Urine Color Yellow Urine Appearance Cloudy Urine pH 5.0 (5.0-9.0) Ur Specific [place] 1.010 (1.005-1.025) Urine Protein 30 (1+) H (Neg-Trace) mg/dL Urine Glucose (UA) Negative (Negative) mg/dL All other labs normal. Assessment and Plan (1) Cellulitis: Qualifiers: Laterality: left Site of cellulitis: extremity Site of cellulitis of extremity: lower extremity Qualified Code(s): L03.116 - Cellulitis of left lower limb Status: Acute He has this superficial ulcers on both lower legs described above likely secondary to chronic stasis edema. He has been seen by the Wound Care Nurse has been recommended to undergo dressing changes with silver alginate dressings for now. He can continue with the same wound care regimen as recommended by the wound care nurse I did excisional debridement of full-thickness of the skin on 2 areas with eschar involving full-thickness skin with the aggregate size of about 4 x 4 cm. We can continue with the same wound care regimen as well. (2) Eschar: Status: Acute I did excisional debridement at bedside with scissors full-thickness of the skin of 2 areas with an aggregate size of about 4 x 4 cm on the left leg anteriorly. I applied silver alginate dressings for now. We can continue with the wound care regimen as recommended by the wound care nurse. His left leg should be elevated on 2 pillows to help with this edema. Procedures Date of Service Date of Service: 10/31/23
[2023-10-23 10:09] LABS: Vancomycin Random 15.2 mcg/mL (15-20)
--- NOTE | 2023-10-23 10:21 | MHC.CLN ---
PT WITH INCREASED NUTRITION RISK R/T PRESSURE INJURY CURRENTLY ON C/L DIET DISCUSSED AT ROUNDS WITH MD; NURSING SHIRLEY BAUER PENDING PER MD ADVANCE DIET TO F/L RECOMMEND ADDING ENSURE MAX TO PROMOTE WOUND HEALING SUPP PROVIDES 300KCALS, 60G PROTEIN MONITOR PO INTAKE AND ENCOURAGE SUPPLEMENTS SEE ALSO FULL CLINICAL NUTRITION ASSESSMENT
[2023-10-23] MEDS: vancomycin HCL 500 MG in 0.9 % Sodium Chloride 100 ML 110 MG IV (11:00)
[2023-10-23 11:45] LABS: Glucose, Whole Blood 157 mg/dL (60-115)
--- NOTE | 2023-10-23 12:22 | HO.WOUND ---
Wound Consult: Attempted Follow up 78yr old Male admitted to [facility] on 10[place]22/23 - See progress notes and H&P for detailed history.? Wound consult follow up for Left Foot and Sacral Wound POA.? Per direct care nurse and Dr. Correa wound assessed and changed by Dr. Correa - He recommends continue with Durafiber AG and Dakins is not needed at todays assessment - no new topical recommendations. I will followup with patient tomorrow for continued assessment and dressing change.
[2023-10-23] MEDS: Sodium Bicarbonate 8.4% 150 MEQ in Dextrose 5 % 850 ML 100 MEQ IV ×2 (13:30→22:29)
[2023-10-23 14:26] LABS: Beta-Hydroxybutyrate 0.71 mmol/L (0.02-0.27)
[2023-10-23 14:27] LABS: Estimated Average Glucose 105 mg/dL; Hemoglobin A1c % 5.3 % (<6.0)
--- NOTE | 2023-10-23 16:06 | MHC.CM.PN ---
Patient lives at home with assist from 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 SATNAM was providing wound care. A referral was sent to [facility] yesterday. [facility] will not provide services at discharge. HCP is his friend Pramod. Met with patient to discuss discharge his plan. He wants to return to his home. Pt would not give preferences for SNF. Notified MD patient declines [facility]. A PT eval will be ordered to assist with dispo plan.
[2023-10-23 16:17] LABS: Glucose, Whole Blood 174 mg/dL (60-115)
--- NOTE | 2023-10-23 16:39 | PC.NURSE ---
1530: patient noted to have 5 beat run of vtach. asymptomatic at this time. no change in pressors needed. made aware.
[2023-10-23] MEDS: Furosemide 100 MG/10 ML VIAL 80 MG IVPUSH (17:27)
[2023-10-23] MEDS: Insulin Lispro 100 UNIT/ML 3 ML VIAL SUBCUT ×2 (17:27→21:10)
--- NOTE | 2023-10-23 19:00 | PC.NURSE ---
upon initial assessment Left AC IV with Levo running in at 0.42mcg/kg/hr found to be leaking. Levo switched to different site. IV removed, Pa made aware, keep checking site but not concerned with extravisation at this time. Photo of arm at time of IV removal included
--- NOTE | 2023-10-23 19:14 | P.PNNP_ITS ---
Subjective Subjective Date of Service: 10/23/23 Interval history: More awake this morning, JIMBO slightly improving; All recent data reviewed. Acidotic Physical Exam 2 Vital Signs: Vital Signs: Last Vital Signs Temp 99.3 F 10/23/23 19:00 Pulse 81 10/23/23 19:00 Resp 20 10/23/23 19:00 BP 116/62 10/23/23 19:00 Pulse Ox 94 10/23/23 19:00 O2 Del Method Room Air 10/23/23 19:00 BMI result Body Mass Index 26.3 Const: General: no acute distress Neck: Neck: Yes supple Resp: Auscultation: diminished lung sounds Cardio: Rate: regular rate GI: Palpation (GI): Soft to palpation Neuro: General: moves all extremities Extrem: General: Yes no pedal edema Objective Data Labs 10/23/23 05:54 10/23/23 05:54 Labs: Laboratory Results - last 24 hr 10/22/23 10/22/23 10/23/23 20:47 21:12 05:54 WBC 13.7 H RBC 3.61 L Hgb 11.7 L Hct 35.9 L MCV 99.4 H MCH 32.4 MCHC 32.6 RDW 14.0 Plt Count 200 D MPV 9.6 Immature Gran % (Auto) 1.2 H Neut % (Auto) 85.7 H Lymph % (Auto) 8.2 L [place] % (Auto) 4.8 Eos % (Auto) 0.0 Baso % (Auto) 0.1 Lymph # (Auto) 1.1 L [place] # (Auto) 0.7 Eos # (Auto) 0.0 Baso # (Auto) 0.0 Abs Immat Gran (auto) 0.17 H Absolute Neuts (auto) 11.8 H Absolute Nucleated RBC 0.000 Nucleated RBC % (auto) 0.0 Sodium 135 Potassium 4.6 Chloride 110 H Carbon Dioxide 10 L* Anion Gap 20 BUN 45 H Creatinine 2.82 H Estim Creat Clear Calc 21.9 Estimated GFR 22 POC Glucose 193 H Random Glucose 162 H Estimat Average Glucose Hemoglobin A1c % Calcium 8.1 L Total Bilirubin 0.5 AST 17 ALT 6 Alkaline Phosphatase 64 Total Protein 5.7 L Albumin 3.4 L Beta-Hydroxybutyrate Urine Color Yellow Urine Appearance Cloudy Urine pH 5.0 Ur Specific [place] 1.010 Urine Protein 30 (1+) H Urine Glucose (UA) Negative Urine Ketones Negative Urine Blood Large (3+) H Urine Nitrite Negative Ur Leukocyte Esterase Trace H Urine RBC >20 H Urine WBC 0-5 Ur Squamous Epith Cells 6-10 Urine Bacteria None Seen Hyaline Casts 6-10 Urine Creatinine 46.80 Random Vancomycin 10/23/23 10/23/23 10/23/23 07:38 09:22 11:42 WBC RBC Hgb Hct MCV MCH MCHC RDW Plt Count MPV Immature Gran % (Auto) Neut % (Auto) Lymph % (Auto) [place] % (Auto) Eos % (Auto) Baso % (Auto) Lymph # (Auto) [place] # (Auto) Eos # (Auto) Baso # (Auto) Abs Immat Gran (auto) Absolute Neuts (auto) Absolute Nucleated RBC Nucleated RBC % (auto) Sodium Potassium Chloride Carbon Dioxide Anion Gap BUN Creatinine Estim Creat Clear Calc Estimated GFR POC Glucose 159 H 157 H Random Glucose Estimat Average Glucose Hemoglobin A1c % Calcium Total Bilirubin AST ALT Alkaline Phosphatase Total Protein Albumin Beta-Hydroxybutyrate Urine Color Urine Appearance Urine pH Ur Specific [place] Urine Protein Urine Glucose (UA) Urine Ketones Urine Blood Urine Nitrite Ur Leukocyte Esterase Urine RBC Urine WBC Ur Squamous Epith Cells Urine Bacteria Hyaline Casts Urine Creatinine Random Vancomycin 15.2 10/23/23 10/23/23 13:55 16:14 WBC RBC Hgb Hct MCV MCH MCHC RDW Plt Count MPV Immature Gran % (Auto) Neut % (Auto) Lymph % (Auto) [place] % (Auto) Eos % (Auto) Baso % (Auto) Lymph # (Auto) [place] # (Auto) Eos # (Auto) Baso # (Auto) Abs Immat Gran (auto) Absolute Neuts (auto) Absolute Nucleated RBC Nucleated RBC % (auto) Sodium Potassium Chloride Carbon Dioxide Anion Gap BUN Creatinine Estim Creat Clear Calc Estimated GFR POC Glucose 174 H Random Glucose Estimat Average Glucose 105 Hemoglobin A1c % 5.3 Calcium Total Bilirubin AST ALT Alkaline Phosphatase Total Protein Albumin Beta-Hydroxybutyrate 0.71 H Urine Color Urine Appearance Urine pH Ur Specific [place] Urine Protein Urine Glucose (UA) Urine Ketones Urine Blood Urine Nitrite Ur Leukocyte Esterase Urine RBC Urine WBC Ur Squamous Epith Cells Urine Bacteria Hyaline Casts Urine Creatinine Random Vancomycin Microbiology Microbiology Results: Microbiology 10/22/23 12:04 Blood - Venous Blood Culture - Preliminary No growth after 24 hours. 10/22/23 12:04 Blood - Venous Blood Culture - Preliminary No growth after 24 hours. 10/21/23 20:24 Blood - Venous Blood Culture - Preliminary No growth after 24 hours. 10/21/23 20:24 Blood - Venous Blood Culture - Preliminary No growth after 24 hours. Procedures Date of Service Date of Service: 10/23/23 Assessment & Plan Assessment and plan (1) Metabolic acidosis: Status: Acute (2) Acute kidney injury: Status: Acute Plan JIMBO due to tubular injury and obstructive uropathy Serum creatinine better; Acidotic- likely multifactorial Beta hydroxy butrate and lactate levels high Was started on Bicarb drip; Serum K - OK If acidosis persists, needs ABG No indication for renal replacement now C/W rest of current supportive management for now Labs AM; Shall closely follow up Progress Note: Quality Stroke Does the patient have a stroke diagnosis?: No
[2023-10-23 19:53] LABS: Glucose, Whole Blood 194 mg/dL (60-115)
[2023-10-23 20:55] LABS: Anion Gap 19 (12-20); Blood Urea Nitrogen 41 mg/dL (9-16); Calcium 7.9 mg/dL (8.4-10.2); Carbon Dioxide 14 mmol/L (22-29); Chloride 108 mmol/L (96-108); Creatinine Clr Calc Pharmacy 24.7; Estimated Glomerular Filt Rate 25; Glucose Random 166 mg/dL (60-115); Potassium 4.7 mmol/L (3.3-5.1); Sodium 136 mmol/L (135-145)
--- NOTE | 2023-10-23 23:42 | W.PM.IDCN ---
History of Present Illness Data of Consult Service Date: 10/23/23 Primary Care Provider: Billy Longoria MD HPI Reason for consult: left foot erythma He presents with worse left leg weepiness. He has been seeing VNA. He is now in ICU. Blood cultures are negative. Review of Systems Review of Systems: Yes Unobtainable due to mental condition PMFSH Past Medical History Medical History Eschar Stasis ulcer of right lower extremity Obesity (BMI 30-39.9) Depression Psoriasis Primary osteoarthritis of both knees Vitamin D deficiency Coronary artery disease Benign essential hypertension Type 2 diabetes mellitus with diabetic neuropathy, unspecified COPD (chronic obstructive pulmonary disease) FADY (obstructive sleep apnea) Neuropathy Pulmonary hypertension HLD (hyperlipidemia) Family History Family History Father Medical history unknown Mother Cancer Family history: reviewed and not pertinent Surgical History Surgical History No pertinent past surgical history Social History Social History Household Members: None Housing: Apartment Do you presently have visiting nurse or other home services: Yes ([facility]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) Alcohol intake: current Alcohol intake frequency: does not drink Alcohol type: beer and wine Patient Tobacco Use Status: Never used Tobacco Tobacco use type: Cigarette Cigarette Packs Per Day: 0.5 Cigarettes Per Day: 5 Years Smoked: 50 e-Cigarette/Vaping Use: Never Used Second Hand Smoke Exposure: No Advance Directives Date on File: 03/05/23 service: Yes Current occupational status: retired Cognitive needs: No Hearing needs: No Vision needs: No Meds Allergies Allergy/AdvReac Type Severity Reaction Status Date / Time Fish Containing Products Allergy Severe ANAPHYLAXIS Verified 10/21/23 18:15 shellfish derived Allergy Severe ANAPHYLAXIS Verified 10/21/23 18:15 doxycycline AdvReac Intermediate Rash Verified 10/21/23 18:15 Active Medications: Current Medications Furosemide (Furosemide 100 Mg/10 Ml Vial) 80 mg IVPUSH BID@0900,1800 SHELBIE; Protocol Last Admin: 10/23/23 17:27 Dose: 80 mg Glucose (Glucose Gel 15 Gm Gel..Gram.) 15 gm PO Q15M PRN; Protocol PRN Reason: per Hypoglycemia Standing Ord. Heparin Sodium (Porcine) (Heparin Sodium,Porcine 5,000 Unit/Ml Vial) 5,000 unit SUBCUT Q8H [facility] Last Admin: 10/23/23 17:26 Dose: 5,000 unit Dextrose (D10) 250 mls @ 750 mls/hr IV Q15M PRN PRN Reason: per Hypoglycemia Standing Ord. Last Infusion: 10/22/23 00:47 Dose: Infused Dextrose (D10) 250 mls @ 750 mls/hr IV Q15M PRN; Protocol PRN Reason: per Hypoglycemia Standing Ord. Piperacillin Sod/Tazobactam (Sod 2.25 gm/ Sodium Chloride) 50 mls @ 100 mls/hr IV Q8H [facility] Last Infusion: 10/23/23 21:54 Dose: Infused Sodium Chloride (Ns) 1,000 mls @ 125 mls/hr IVCONT .Q8H [facility] Last Admin: 10/23/23 23:10 Dose: Not Given Norepinephrine Bitartrate (Levophed) 8 mg in 250 mls @ 0 mls/hr IV .Q0M [facility]; Protocol Last Admin: 10/23/23 23:07 Dose: 0.42 mcg/kg/min, 62.92 mls/hr Vancomycin HCl 500 mg/ Sodium (Chloride) 110 mls @ 110 mls/hr IV Q24H [facility] Last Infusion: 10/23/23 13:22 Dose: Infused Vasopressin (Vasostrict) 20 unit in 100 mls @ 12 mls/hr IVCONT .Q8H20M [facility] Last Admin: 10/23/23 14:54 Dose: Not Given Sodium Bicarbonate 150 meq/ (Dextrose) 1,000 mls @ 100 mls/hr IV .Q10H [facility] Last Admin: 10/23/23 22:29 Dose: 100 mls/hr Insulin Human Lispro (Insulin Lispro 100 Unit/Ml 3 Ml Vial) 0 unit SUBCUT QIDACHS [facility]; Protocol Last Admin: 10/23/23 21:10 Dose: 2 unit Magnesium Hydroxide (Milk Of Magnesia 30 Ml Oral.Susp) 30 ml PO DAILY PRN PRN Reason: Constipation Pharmacy Consult (Consult Rx Vancomycin Dosing) 1 each MISCELLANE DAILY PRN PRN Reason: Consult order Polyethylene Glycol (Polyethylene Glycol 3350 17 Gm Powd.Pack) 17 gm PO DAILY PRN PRN Reason: Constipation Sodium Chloride (0.9 % Sodium Chloride Flush 3 Ml Syringe) 3 ml IVFLUSH QSHIFT [facility] Last Admin: 10/23/23 17:28 Dose: 3 ml Sodium Hypochlorite (Sodium Hypochlorite 0.25% 473 Ml Solution) 1 appl TOPICAL BID [facility] Last Admin: 10/23/23 22:32 Dose: Not Given Home Medications ?Medication ?Instructions ?Recorded ?Confirmed ?Last Taken ?Type gabapentin 300 mg capsule 300 mg PO TID PRN NEUROPATHIC Pain 10/22/23 10/22/23 Unknown History glipizide 10 mg tablet 10 mg PO BID 10/22/23 10/22/23 10/21/23 History Physical Exam Vital Signs: Vital Signs: Last Vital Signs Temp 99.7 F 10/23/23 23:00 Pulse 93 10/23/23 23:07 Resp 93 H 10/23/23 23:00 BP 110/46 L 10/23/23 23:07 Pulse Ox 91 L 10/23/23 22:00 O2 Del Method Room Air 10/23/23 23:00 BMI result Body Mass Index 26.3 Const: General: cooperative HEENT: Head: Yes normal to inspection Face and sinus: Yes normal facial exam Mouth: Normal oral and palatal mucosa present Teeth and gingiva: dentition normal Eyes: General: appearance normal, both eyes and all related structures Pupils: Equal, round and reactive pupils present Resp: Effort & Inspection: normal respiratory effort Cardio: Rate: regular rate Rhythm: regular rhythm GI: Palpation (GI): Soft to palpation and nontender : General: Yes no CVA tenderness Back/Spine/Pelvis: Back: no CVA tenderness Skin: General skin exam: no rashes or lesions noted Neuro: General: moves all extremities Cranial nerves: Yes Equal, round and reactive pupils present Extrem: Other: left foot scaly,redness Psych: Appearance: grossly normal Results Labs 10/23/23 05:54 10/23/23 20:22 Labs: Short CBC 10/23/23 Range/Units 05:54 WBC 13.7 H (4.8-10.8) X10*3/uL Hgb 11.7 L (14.0-18.0) g/dl Hct 35.9 L (42.0-52.0) % Plt Count 200 D (160-400) X10*3/uL BMP 10/23/23 10/23/23 05:54 20:22 Sodium 135 136 Potassium 4.6 4.7 Chloride 110 H 108 Carbon Dioxide 10 L* 14 L BUN 45 H 41 H Creatinine 2.82 H 2.50 H Calcium 8.1 L 7.9 L Liver Function 10/23/23 Range/Units 05:54 Total Bilirubin 0.5 (0.0-1.0) mg/dL AST 17 (5-37) U/L ALT 6 (0-40) U/L Alkaline Phosphatase 64 (39-117) U/L Albumin 3.4 L (3.5-5.0) g/dL Microbiology Microbiology Results: Microbiology 10/21/23 20:24 Blood - Venous Blood Culture - Preliminary No growth after 48 hours. 10/21/23 20:24 Blood - Venous Blood Culture - Preliminary No growth after 48 hours. 10/22/23 12:04 Blood - Venous Blood Culture - Preliminary No growth after 24 hours. 10/22/23 12:04 Blood - Venous Blood Culture - Preliminary No growth after 24 hours. Assessment and Plan (1) Eschar: Status: Acute (2) Acute encephalopathy: Status: Acute Unknown organism foot infection. There is possibly staph or strep He has had longstanding infection foot and sees VNA and was found incontinent of urine. Would continue Vancomycin and Zosyn for now. Await any cultures of wound/blood. Vascular eval if able (3) Septic shock: Status: Acute
[2023-10-24] VITALS (56 sets, daily range): BP systolic 70–161; BP diastolic 37–104; PULSE 78–140; RESP 14–34; TEMP 37.2–37.8; O2SAT 89–100; BMI 27.9
[2023-10-24 00:08] LABS: Glucose, Whole Blood 140 mg/dL (60-115)
[2023-10-24] MEDS: Heparin Sodium,Porcine 5,000 UNIT/ML VIAL 5000 UNIT SUBCUT ×2 (02:07→08:01)
[2023-10-24] MEDS: Norepinephrine Bitartrate/D5W 8 MG/250 ML PLAST..BAG 62.92 MG IV ×2 (03:02→06:09)
[2023-10-24 05:55] LABS: Basophils Percent Auto 0.2 % (0-2); Hematocrit 37.3 % (42.0-52.0); Imm Gran Abs Auto 0.19 X10*3/uL (0.00-0.03); Lymphocytes Absolute Auto 1.1 X10*3/uL (1.2-4.9); Lymphocytes Percent Auto 5.6 % (20-40); MANUAL DIFF FLAG SCAN; Mean Corpuscular HGB Conc 34.9 g/dl (31.0-36.0); Mean Corpuscular Hemoglobin 33.2 pg (27.0-33.0); Mean Corpuscular Volume 95.2 fL (80.0-98.0); Mean Platelet Volume 9.4 fL (9.4-12.4); Monocytes Absolute Auto 0.5 X10*3/uL (0.1-1.2); Monocytes Percent Auto 2.8 % (2-11); Neutrophils Absolute Auto 17.1 x10*3/uL (2.0-8.3); Neutrophils Percent Auto 90.4 % (45-73); Platelet Count 163 X10*3/uL (160-400); Red Blood Count 3.92 X10*6/uL (4.60-5.80); Red Cell Distribution Width 13.8 % (11.0-16.0); SCAN SMEAR FLAG 1; White Blood Count 18.9 X10*3/uL (4.8-10.8)
[2023-10-24 06:09] LABS: Vancomycin Random 15.2 mcg/mL (15-20)
[2023-10-24] MEDS: Piperacillin Sodium/Tazobactam 2.25 GM in 0.9 % Sodium Chloride 50 ML IV ×3 (06:09→21:40)
[2023-10-24 06:17] LABS: Alanine Aminotransferase 7 U/L (0-40); Albumin Level 3.5 g/dL (3.5-5.0); Alkaline Phosphatase 66 U/L (39-117); Anion Gap 17 (12-20); Aspartate Amino Transferase 18 U/L (5-37); Beta-Hydroxybutyrate 0.13 mmol/L (0.02-0.27); Bilirubin Total 0.8 mg/dL (0.0-1.0); Blood Urea Nitrogen 35 mg/dL (9-16); Carbon Dioxide 21 mmol/L (22-29); Chloride 101 mmol/L (96-108); Creatinine Clr Calc Pharmacy 31.7; Estimated Glomerular Filt Rate 33; Glucose Random 191 mg/dL (60-115); Potassium 2.8 mmol/L (3.3-5.1); Sodium 136 mmol/L (135-145); Total Protein 5.5 g/dL (6.5-8.0)
[2023-10-24 06:22] LABS: SLIDE REVIEW VERIFIED
[2023-10-24] MEDS: Furosemide 100 MG/10 ML VIAL 80 MG IVPUSH ×2 (07:59→16:31)
[2023-10-24] MEDS: 0.9 % Sodium Chloride Flush 3 ML SYRINGE IVFLUSH ×3 (08:05→23:30)
--- NOTE | 2023-10-24 08:30 | P.PNCC_ITS ---
Subjective Subjective Date of Service: 10/24/23 Interval History: Continues to be needing vasopressor support almost the same as yesterday Liborio is slightly improving, acidosis slightly better Tachycardic to 130s and 140s this morning He is also tachypneic this morning. Bedside ultrasound shows diffuse B-lines in all the lung toribio, IVC collapsing 1.5 cm, RV small, LV function normal hyperdynamic left Critical Care Time (minutes): 40 Physical Exam 2 Vital Signs: Vital Signs: Last Vital Signs Temp 99.1 F 10/24/23 07:00 Pulse 126 H 10/24/23 07:00 Resp 26 H 10/24/23 07:00 BP 113/69 10/24/23 07:00 Pulse Ox 92 10/24/23 07:00 O2 Del Method Nasal Cannula 10/24/23 07:00 O2 Flow Rate 6 10/24/23 07:00 BMI result Body Mass Index 27.9 General: acute distress, ill appearing and tired appearing Nutritional Appearance: Poor nourished and normal weight Eyes: appearance normal, both eyes and all related structures; Alignment and Position: alignment normal and position normal Neck: No lymphadenopathy, no thyromegaly Resp: bilateral air entry equal, bilateral crackles heard and is very diffuse Cardio: Tachycardic, regular rhythm; Heart sounds: S1 normal heart sound present and S2 normal heart sound present GI: soft, nontender, no guarding, no hepatosplenomegaly : bladder normal to inspection, bladder normal to palpation, no renal angle tenderness Skin: no rashes or lesions noted and elasticity normal Neuro: oriented to person, oriented to place, oriented to time and moves all extremities, follows all commands Objective Data Labs 10/24/23 05:44 10/24/23 05:44 Labs: Laboratory Results - last 24 hr 10/23/23 10/23/23 10/23/23 09:22 11:42 13:55 WBC RBC Hgb Hct MCV MCH MCHC RDW Plt Count MPV Immature Gran % (Auto) Neut % (Auto) Lymph % (Auto) King[place] % (Auto) Eos % (Auto) Baso % (Auto) Lymph # (Auto) [place] # (Auto) Eos # (Auto) Baso # (Auto) Abs Immat Gran (auto) Absolute Neuts (auto) Absolute Nucleated RBC Nucleated RBC % (auto) Smear Tech's Comments Sodium Potassium Chloride Carbon Dioxide Anion Gap BUN Creatinine Estim Creat Clear Calc Estimated GFR POC Glucose 157 H Random Glucose Estimat Average Glucose 105 Hemoglobin A1c % 5.3 Calcium Total Bilirubin AST ALT Alkaline Phosphatase Total Protein Albumin Beta-Hydroxybutyrate 0.71 H Random Vancomycin 15.2 10/23/23 10/23/23 10/23/23 16:14 19:49 20:22 WBC RBC Hgb Hct MCV MCH MCHC RDW Plt Count MPV Immature Gran % (Auto) Neut % (Auto) Lymph % (Auto) [place] % (Auto) Eos % (Auto) Baso % (Auto) Lymph # (Auto) [place] # (Auto) Eos # (Auto) Baso # (Auto) Abs Immat Gran (auto) Absolute Neuts (auto) Absolute Nucleated RBC Nucleated RBC % (auto) Smear Tech's Comments Sodium 136 Potassium 4.7 Chloride 108 Carbon Dioxide 14 L Anion Gap 19 BUN 41 H Creatinine 2.50 H Estim Creat Clear Calc 24.7 Estimated GFR 25 POC Glucose 174 H 194 H Random Glucose 166 H Estimat Average Glucose Hemoglobin A1c % Calcium 7.9 L Total Bilirubin AST ALT Alkaline Phosphatase Total Protein Albumin Beta-Hydroxybutyrate Random Vancomycin 10/24/23 10/24/23 00:05 05:44 WBC 18.9 H RBC 3.92 L Hgb 13.0 L Hct 37.3 L MCV 95.2 MCH 33.2 H MCHC 34.9 RDW 13.8 Plt Count 163 MPV 9.4 Immature Gran % (Auto) 1.0 H Neut % (Auto) 90.4 H Lymph % (Auto) 5.6 L [place] % (Auto) 2.8 Eos % (Auto) 0.0 Baso % (Auto) 0.2 Lymph # (Auto) 1.1 L [place] # (Auto) 0.5 Eos # (Auto) 0.0 Baso # (Auto) 0.0 Abs Immat Gran (auto) 0.19 H Absolute Neuts (auto) 17.1 H Absolute Nucleated RBC 0.000 Nucleated RBC % (auto) 0.0 Smear Tech's Comments VERIFIED Sodium 136 Potassium 2.8 L* D Chloride 101 Carbon Dioxide 21 L Anion Gap 17 BUN 35 H Creatinine 1.95 H Estim Creat Clear Calc 31.7 Estimated GFR 33 POC Glucose 140 H Random Glucose 191 H Estimat Average Glucose Hemoglobin A1c % Calcium 8.0 L Total Bilirubin 0.8 AST 18 ALT 7 Alkaline Phosphatase 66 Total Protein 5.5 L Albumin 3.5 Beta-Hydroxybutyrate 0.13 Random Vancomycin 15.2 Microbiology Microbiology Results: Microbiology 10/21/23 20:24 Blood - Venous Blood Culture - Preliminary No growth after 48 hours. 10/21/23 20:24 Blood - Venous Blood Culture - Preliminary No growth after 48 hours. 10/22/23 12:04 Blood - Venous Blood Culture - Preliminary No growth after 24 hours. 10/22/23 12:04 Blood - Venous Blood Culture - Preliminary No growth after 24 hours. Progress Note: A&P Assessment and plan (1) Septic shock: Status: Acute (2) Acute encephalopathy: Status: Acute (3) Metabolic acidosis: Status: Acute (4) Acute hyperkalemia: Status: Acute (5) Acute kidney injury: Status: Acute (6) Pneumonia: Status: Acute Plan Acute encephalopathy: Secondary to metabolic encephalopathy from severe sepsis, significantly better when compared to admission currently he is alert and oriented Less likely to be intracranial pathology given systemic findings of LIBORIO, shock Septic shock: Currently on Levophed support, stable Levophed requirement about 0.40 micrograms/kg per minute; but as he is tachypneic and tachycardic to 130s and 140s since this morning we will switch from Levophed to phenylephrine titrate to keep the map above 65 mm Hg Bedside echo done this morning showed hyperdynamic left heart showed close to normal LV systolic function, RV small, IVC 1.5 cm and fluctuating with respiration whereas lung showed diffuse B-lines. He was diuresed yesterday, we will hold off on further diuresis We will give him 100 cc of albumin Respiratory: Tachypneic possibly secondary to early pneumonia, ultrasound of the lung showing diffuse B-lines in all the lung toribio He has slight worsening in his oxygen requirement, looks like it would progress during the day we will closely watch his respiratory status GI: We will start on NG tube feeds Acute kidney injury: Improved Possibly secondary to sepsis leading to ATN; also had urinary retention of about 1.2 L on placing Cummings catheter so possibly also has a component of obstructive uropathy Creatinine up to 3.51 upon admission, decreased to 1.91 this morning We will hold off on diuresis today with Lasix 80 mg b.i.d. as he is becoming tachycardic and is IVC is small and collapsing Monitor I's and O's Metabolic acidosis: Improved when compared to yesterday, bicarb 21 today Possibly secondary to lactic acidosis and acute kidney injury beta hydroxybutyrate slightly elevated yesterday improved with IV fluids We will decrease the bicarb drip to 50 cc/hour Infectious Disease: Cellulitis of the lower extremities is the possible source of infection started the patient on very broad-spectrum antibiotics Surgery consulted for possible need for debridement of the lower extremities X-ray feet did not show any evidence of osteomyelitis, however the skin changes looks superficial it is less likely that the patient has osteomyelitis We will send wound cultures Heme: Leukocytosis secondary to infection Endocrine: We will start on sliding scale insulin to control hyperglycemia HbA1c 5.3 Prophylaxis: Heparin, pantoprazole Quality Stroke Does the patient have a stroke diagnosis?: No VTE Prior VTE?: No VTE Risk Level:: Medical - moderate - high VTE Device Contraindication: N/A - Device Ordered VTE Drug Contraindication: N/A - Med Ordered
[2023-10-24 08:43] LABS: Vancomycin Random 14.2 mcg/mL (15-20)
[2023-10-24] MEDS: Phenylephrine HCL 20 MG in 0.9 % Sodium Chloride 250 ML 33.3 MG IVCONT (08:57)
[2023-10-24 09:16] LABS: Glucose, Whole Blood 185 mg/dL (60-115)
[2023-10-24] MEDS: Sodium Bicarbonate 8.4% 150 MEQ in Dextrose 5 % 850 ML 50 MEQ IV (09:26)
[2023-10-24 09:47] LABS: Magnesium 1.3 mg/dL (1.6-2.6)
[2023-10-24] MEDS: Insulin Lispro 100 UNIT/ML 3 ML VIAL SUBCUT ×2 (09:49→20:58)
--- NOTE | 2023-10-24 10:33 | PM.PNNEP ---
Subjective Subjective Date of Service: 10/24/23 Interval history: Continues to be needing vasopressor support almost the same as yesterday Liborio is slightly improving, acidosis slightly better Tachycardic to 130s and 140s this morning He is also tachypneic this morning. Bedside ultrasound shows diffuse B-lines in all the lung toribio, IVC collapsing 1.5 cm, RV small, LV function normal hyperdynamic left Physical Exam Vital Signs: Vital Signs: Last Vital Signs Temp 99.3 F 10/24/23 10:00 Pulse 107 H 10/24/23 10:00 Resp 22 H 10/24/23 10:00 BP 95/52 L 10/24/23 10:00 Pulse Ox 90 L 10/24/23 10:00 O2 Del Method Nasal Cannula 10/24/23 08:00 O2 Flow Rate 6 10/24/23 10:00 BMI result Body Mass Index 27.9 Const: General: comfortable Nutritional Appearance: well nourished Orientation/consciousness: patient oriented x3 HEENT: Head: No normal to inspection Mouth: moist mucous membranes Neck: Neck: Yes supple and Yes no JVD Resp: Auscultation: clear to auscultation bilaterally, no rales and rub present Cardio: Jugular venous distension: no JVD Palpation: no palpable S3 and no palpable S4 Heart sounds: no rubs GI: Palpation (GI): Soft to palpation and nontender Percussion: No Fluid wave present : General: Yes no CVA tenderness Back/Spine/Pelvis: Back: no CVA tenderness Skin: General skin exam: no rashes or lesions noted Neuro: General: patient oriented x3 Extrem: Other: Leg ulcer General: Yes no pedal edema and No clubbing Objective Data Labs 10/24/23 05:44 10/24/23 05:44 Labs: Laboratory Results - last 24 hr 10/23/23 10/23/23 10/23/23 11:42 13:55 16:14 WBC RBC Hgb Hct MCV MCH MCHC RDW Plt Count MPV Immature Gran % (Auto) Neut % (Auto) Lymph % (Auto) Russell % (Auto) Eos % (Auto) Baso % (Auto) Lymph # (Auto) Russell # (Auto) Eos # (Auto) Baso # (Auto) Abs Immat Gran (auto) Absolute Neuts (auto) Absolute Nucleated RBC Nucleated RBC % (auto) Smear Tech's Comments Sodium Potassium Chloride Carbon Dioxide Anion Gap BUN Creatinine Estim Creat Clear Calc Estimated GFR POC Glucose 157 H 174 H Random Glucose Estimat Average Glucose 105 Hemoglobin A1c % 5.3 Calcium Magnesium Total Bilirubin AST ALT Alkaline Phosphatase Total Protein Albumin Beta-Hydroxybutyrate 0.71 H Random Vancomycin 10/23/23 10/23/23 10/24/23 19:49 20:22 00:05 WBC RBC Hgb Hct MCV MCH MCHC RDW Plt Count MPV Immature Gran % (Auto) Neut % (Auto) Lymph % (Auto) Russell % (Auto) Eos % (Auto) Baso % (Auto) Lymph # (Auto) Russell # (Auto) Eos # (Auto) Baso # (Auto) Abs Immat Gran (auto) Absolute Neuts (auto) Absolute Nucleated RBC Nucleated RBC % (auto) Smear Tech's Comments Sodium 136 Potassium 4.7 Chloride 108 Carbon Dioxide 14 L Anion Gap 19 BUN 41 H Creatinine 2.50 H Estim Creat Clear Calc 24.7 Estimated GFR 25 POC Glucose 194 H 140 H Random Glucose 166 H Estimat Average Glucose Hemoglobin A1c % Calcium 7.9 L Magnesium Total Bilirubin AST ALT Alkaline Phosphatase Total Protein Albumin Beta-Hydroxybutyrate Random Vancomycin 10/24/23 10/24/23 10/24/23 05:44 08:20 08:59 WBC 18.9 H RBC 3.92 L Hgb 13.0 L Hct 37.3 L MCV 95.2 MCH 33.2 H MCHC 34.9 RDW 13.8 Plt Count 163 MPV 9.4 Immature Gran % (Auto) 1.0 H Neut % (Auto) 90.4 H Lymph % (Auto) 5.6 L Russell % (Auto) 2.8 Eos % (Auto) 0.0 Baso % (Auto) 0.2 Lymph # (Auto) 1.1 L Russell # (Auto) 0.5 Eos # (Auto) 0.0 Baso # (Auto) 0.0 Abs Immat Gran (auto) 0.19 H Absolute Neuts (auto) 17.1 H Absolute Nucleated RBC 0.000 Nucleated RBC % (auto) 0.0 Smear Tech's Comments VERIFIED Sodium 136 Potassium 2.8 L* D Chloride 101 Carbon Dioxide 21 L Anion Gap 17 BUN 35 H Creatinine 1.95 H Estim Creat Clear Calc 31.7 Estimated GFR 33 POC Glucose Random Glucose 191 H Estimat Average Glucose Hemoglobin A1c % Calcium 8.0 L Magnesium 1.3 L* Total Bilirubin 0.8 AST 18 ALT 7 Alkaline Phosphatase 66 Total Protein 5.5 L Albumin 3.5 Beta-Hydroxybutyrate 0.13 Random Vancomycin 15.2 14.2 L 10/24/23 09:14 WBC RBC Hgb Hct MCV MCH MCHC RDW Plt Count MPV Immature Gran % (Auto) Neut % (Auto) Lymph % (Auto) Russell % (Auto) Eos % (Auto) Baso % (Auto) Lymph # (Auto) Russell # (Auto) Eos # (Auto) Baso # (Auto) Abs Immat Gran (auto) Absolute Neuts (auto) Absolute Nucleated RBC Nucleated RBC % (auto) Smear Tech's Comments Sodium Potassium Chloride Carbon Dioxide Anion Gap BUN Creatinine Estim Creat Clear Calc Estimated GFR POC Glucose 185 H Random Glucose Estimat Average Glucose Hemoglobin A1c % Calcium Magnesium Total Bilirubin AST ALT Alkaline Phosphatase Total Protein Albumin Beta-Hydroxybutyrate Random Vancomycin Microbiology Microbiology Results: Microbiology 10/21/23 20:24 Blood - Venous Blood Culture - Preliminary No growth after 48 hours. 10/21/23 20:24 Blood - Venous Blood Culture - Preliminary No growth after 48 hours. 10/22/23 12:04 Blood - Venous Blood Culture - Preliminary No growth after 24 hours. 10/22/23 12:04 Blood - Venous Blood Culture - Preliminary No growth after 24 hours. Procedures Date of Service Date of Service: 10/24/23 Assessment & Plan Assessment and plan (1) Metabolic acidosis: Status: Acute (2) Acute kidney injury: Status: Acute Plan LIBORIO due to tubular injury and obstructive uropathy Serum creatinine better; Acidotic- likely multifactorial Beta hydroxy butrate and lactate levels high Was started on Bicarb drip; Serum K - OK If acidosis persists, needs ABG No indication for renal replacement now C/W rest of current supportive management for now Labs AM; Shall closely follow up Time Spent With Patient Time: Total time managing care of this patient today ____ minutes. Progress Note: Quality Stroke Does the patient have a stroke diagnosis?: No
[2023-10-24] MEDS: Phenylephrine HCL 20 MG in 0.9 % Sodium Chloride 250 ML 166.51 MG IVCONT ×5 (10:58→23:29)
[2023-10-24] MEDS: Magnesium Sulfate/H2O 2 GM/50 ML PIGGYBACK IV (11:01)
[2023-10-24] MEDS: Potassium Chloride/H20 20 MEQ/100 ML PIGGYBACK 100 MEQ IV ×2 (11:01→12:15)
[2023-10-24] MEDS: vancomycin HCL 500 MG in 0.9 % Sodium Chloride 100 ML 110 MG IV (11:06)
[2023-10-24] MEDS: fentaNYL citrate/PF 100 MCG/2 ML VIAL 25 MCG IVPUSH ×4 (11:36→20:58)
[2023-10-24] MEDS: Vasopressin 20 UNIT/100 ML INFUS..BTL 12 UNIT IVCONT ×2 (12:10→19:37)
[2023-10-24 12:13] LABS: Reflex Lactate? Lactic Acid Added
[2023-10-24] MEDS: Phenylephrine HCL 20 MG in 0.9 % Sodium Chloride 250 ML 266.41 MG IVCONT ×4 (12:20→15:38)
[2023-10-24 12:40] LABS: Glucose, Whole Blood 90 mg/dL (60-115)
[2023-10-24 12:55] LABS: ~Lactic Acid-LAB USE ONLY 4.2 mmol/L (0.5-2.0)
--- NOTE | 2023-10-24 13:04 | MHC.CM.PN ---
Pt continues care in ICU: remains on 6 liters of n/c and on pressors. Referral has been made for possible SNF placement. CM to follow
--- NOTE | 2023-10-24 13:57 | HO.WOUND ---
Wound Consult: Follow up 78yr old Male admitted to [facility] on 10/22/23 - See progress notes and H&P for detailed history.? Wound consult follow up for Left Foot and Sacral Wound POA.? Patient is ICU level of care and treats in the outpatient wound clinic for the Left foot. Last visit is documented with out wound clinic was 08/30/23 and next appointment is schedule for 10/28/23 per chart review. Sacrococcygeal and Left Ischium 10/22/23 10/24/23 Etiology: ?Unstageable Pressure Injuries - ?Present on Admission Wound Bed: Sacrococcygeal area - coccyx and left sacrum with black eschar and necrotic tissue surrounding tissue is noted for MASD (Moisture Associated Skin Damage) red and scattered areas of partial thickness tissue loss and dried fecal material unable to be fully removed despite active cleansing. Left Ischium - black eschar and necrotic tissue surrounding tissue is noted for MASD (Moisture Associated Skin Damage) red and scattered areas of partial thickness tissue loss and dried fecal material unable to be fully removed despite active cleansing. Drainage / Oder: unable to tell pt was incontinent of stool Edges: ? irregular Valerie wound: ?MASD - improved pink erythema - No Induration, Fluctuance or Warmth noted Pain: patient reports pain Goals of Treatment: ? Triad to sooth red irritated tissue - and to allow for autolytic debridement of eschar and necrotic tissue - Given proximity to anus dressings will be difficult - will consider santyl or surgical debridement in future if no longer improving. 10/22/23 10/22/23 10/24/23 10/24/23 10/24/23 Left Whole Foot Etiology: ??Venous wound - Lymphedema - treats at outpt wound clinic Measurements: foot in its entirety Wound Bed: Lateral and Medial areas with with improved slough - debrided by Dr. Correa on 10/23/23 Drainage / Odor: less odor noted today mild foul smell remains yellow creamy drainage noted Edges: ? irregular Valerie wound: ?pink erythema - decrease in swelling noted Pain: patient reports significant pain Goals of Treatment: ? Hydrofiber AG applied for moisture management Right Leg 10/24/23 Recommendations: 1. Turn and Reposition every 2 hours and as needed for patient comfort.? Use pillows or wedges to support off loading positions. 2. Off Load all bony prominences with use of pillows and heel boots if needed.? Apply Preventative foams where needed. ? 3. Monitor for incontinence and moisture control, use barrier creams when needed for prevention and treatment. 4. Provide adequate and supplemental nutrition.? 5. Order or Continue low air loss mattress. 6. When applicable maintain blood glucose levels per Providers order. 7. Sacrococcygeal and Left Ischium - Off Load Pressure - Cleanse with PH balance spray or wipes, pat dry. ?Apply thin layer of Triad to wound bed - only pat and dab no scrub and rub when soiling occurs. Reapply thin layer PRN after each episode of incontinence. 8. Left Lower Leg - Elevate lower legs off of surface of bed with use of pillows.? Cleanse with NS, Pat dry.? Apply vaseline to both legs, apply layer of Durafiber AG to open wound beds secure with ABD pad, gauze wrap and tape.? Change every other day. 9. Right Lower Leg - Elevate lower legs off of surface of bed with use of pillows.? Cleanse with NS, Pat dry.? Apply vaseline to both legs, apply layer of xeroform to open wound beds secure with ABD pad, gauze wrap and tape.? Change Daily. Re-consult wound care Nurse for wound deterioration or wound changes.
[2023-10-24 14:40] LABS: Reflex Lactate? 2 Y
[2023-10-24 16:21] LABS: Creatinine Urine 42.63 mg/dL
[2023-10-24 16:39] LABS: Glucose, Whole Blood 133 mg/dL (60-115)
[2023-10-24] MEDS: Phenylephrine HCL 20 MG in 0.9 % Sodium Chloride 250 ML 233.11 MG IVCONT (16:39)
[2023-10-24 16:52] LABS: ~Lactic Acid-LAB USE ONLY 4.8 mmol/L (0.5-2.0)
[2023-10-24 18:53] LABS: Anion Gap 16 (12-20); Blood Urea Nitrogen 33 mg/dL (9-16); Calcium 7.5 mg/dL (8.4-10.2); Carbon Dioxide 21 mmol/L (22-29); Chloride 106 mmol/L (96-108); Creatinine Clr Calc Pharmacy 34.3; Estimated Glomerular Filt Rate 33; Glucose Random 145 mg/dL (60-115); Potassium 3.3 mmol/L (3.3-5.1); Sodium 140 mmol/L (135-145)
[2023-10-24 19:44] LABS: Glucose, Whole Blood 159 mg/dL (60-115)
[2023-10-24 23:28] LABS: Anion Gap 17 (12-20); Blood Urea Nitrogen 35 mg/dL (9-16); Calcium 7.8 mg/dL (8.4-10.2); Carbon Dioxide 23 mmol/L (22-29); Chloride 105 mmol/L (96-108); Creatinine Clr Calc Pharmacy 30.5; Estimated Glomerular Filt Rate 29; Glucose Random 108 mg/dL (60-115); Magnesium 1.7 mg/dL (1.6-2.6); Potassium 3.4 mmol/L (3.3-5.1); Sodium 142 mmol/L (135-145)
[2023-10-25] VITALS (55 sets, daily range): BP systolic 84–117; BP diastolic 35–63; PULSE 87–117; RESP 12–36; TEMP 36.7–37.8; O2SAT 90–100; BMI 27.0
[2023-10-25] MEDS: Heparin Sodium,Porcine 5,000 UNIT/ML VIAL 5000 UNIT SUBCUT ×3 (00:53→16:05)
[2023-10-25] MEDS: fentaNYL citrate/PF 100 MCG/2 ML VIAL 25 MCG IVPUSH ×5 (00:53→19:30)
[2023-10-25] MEDS: Phenylephrine HCL 20 MG in 0.9 % Sodium Chloride 250 ML 166.51 MG IVCONT ×7 (00:56→12:03)
[2023-10-25] MEDS: Vasopressin 20 UNIT/100 ML INFUS..BTL 12 UNIT IVCONT ×3 (01:35→16:41)
[2023-10-25 05:32] LABS: VBG Base Excess -4.5 mmol/L; VBG HCO3 20 mmol/L (22-26); VBG pCO2 34 mmHg; VBG pH 7.36 (7.32-7.43); VBG pO2 47 mmHg
[2023-10-25 05:48] LABS: Venous Blood Gas Refer to POC result
[2023-10-25] MEDS: Piperacillin Sodium/Tazobactam 2.25 GM in 0.9 % Sodium Chloride 50 ML IV ×3 (05:48→21:16)
[2023-10-25 07:23] LABS: Glucose, Whole Blood 91 mg/dL (60-115)
[2023-10-25 07:31] LABS: Hematocrit 41.6 % (42.0-52.0); Hemoglobin 13.6 g/dl (14.0-18.0); Mean Corpuscular HGB Conc 32.7 g/dl (31.0-36.0); Mean Corpuscular Hemoglobin 33.1 pg (27.0-33.0); Mean Corpuscular Volume 101.2 fL (80.0-98.0); NRBC Pct Auto 0.2 /100WBC (0.0-0.2); Platelet Count 124 X10*3/uL (160-400); Red Blood Count 4.11 X10*6/uL (4.60-5.80); Red Cell Distribution Width 14.5 % (11.0-16.0); White Blood Count 18.6 X10*3/uL (4.8-10.8)
[2023-10-25 07:43] LABS: Alanine Aminotransferase 138 U/L (0-40); Albumin Level 3.1 g/dL (3.5-5.0); Alkaline Phosphatase 84 U/L (39-117); Anion Gap 22 (12-20); Aspartate Amino Transferase 453 U/L (5-37); Bilirubin Total 0.8 mg/dL (0.0-1.0); Blood Urea Nitrogen 37 mg/dL (9-16); Calcium 7.6 mg/dL (8.4-10.2); Carbon Dioxide 19 mmol/L (22-29); Chloride 108 mmol/L (96-108); Creatinine Clr Calc Pharmacy 27.7; Estimated Glomerular Filt Rate 29; Glucose Random 90 mg/dL (60-115); Potassium 3.5 mmol/L (3.3-5.1); Sodium 145 mmol/L (135-145); Total Protein 5.3 g/dL (6.5-8.0)
[2023-10-25 08:47] LABS: Vancomycin Random 13.7 mcg/mL (15-20)
--- NOTE | 2023-10-25 08:49 | P.PNCC_ITS ---
Subjective Subjective Date of Service: 10/25/23 Interval History: Continues to be critically ill on multiple vasopressor support including Emmanuel- Synephrine and vasopressin support Breathing is a little bit better today, he is more alert and oriented this morning Renal function worsening when compared to yesterday Has worsening transaminitis Critical Care Time (minutes): 35 Physical Exam 2 Vital Signs: Vital Signs: Last Vital Signs Temp 99.3 F 10/25/23 08:00 Pulse 90 10/25/23 08:47 Resp 28 H 10/25/23 08:00 BP 106/55 L 10/25/23 08:47 Pulse Ox 96 10/25/23 08:00 O2 Del Method Nasal Cannula 10/25/23 08:00 O2 Flow Rate 6 10/25/23 08:00 BMI result Body Mass Index 27.0 General: acute distress, ill appearing and tired appearing Nutritional Appearance: Poorly nourished and normal weight Eyes: appearance normal, both eyes and all related structures; Alignment and Position: alignment normal and position normal Neck: No lymphadenopathy, no thyromegaly Resp: bilateral air entry equal, bilateral lung base crackles heard Cardio: Regular rate, regular rhythm; Heart sounds: S1 normal heart sound present and S2 normal heart sound present GI: soft, nontender, no guarding, no hepatosplenomegaly : bladder normal to inspection, bladder normal to palpation, no renal angle tenderness Skin: Sacral decubitus ulcer noted, no rashes or lesions noted and elasticity normal Neuro: oriented to person, oriented to place, oriented to time and moves all extremities, follows commands Objective Data Labs 10/25/23 07:19 10/25/23 07:19 Labs: Laboratory Results - last 24 hr 10/23/23 10/24/23 10/24/23 21:12 08:59 09:14 WBC RBC Hgb Hct MCV MCH MCHC RDW Plt Count MPV Absolute Nucleated RBC Nucleated RBC % (auto) VBG pH VBG pCO2 VBG pO2 VBG HCO3 VBG O2 Saturation VBG Base Excess Sodium Potassium Chloride Carbon Dioxide Anion Gap BUN Creatinine Estim Creat Clear Calc Estimated GFR POC Glucose 185 H Random Glucose Lactic Acid Lactic Acid F/U @ 2Hr Lactic Acid F/U @ 4Hr Calcium Magnesium 1.3 L* Total Bilirubin AST ALT Alkaline Phosphatase Total Protein Albumin Urine Creatinine 42.63 Urine Microalbumin 84.0 Microalb/Creat Ratio 197.0 H Random Vancomycin 05/16/24 05/16/24 05/16/24 09:59 12:36 12:37 WBC RBC Hgb Hct MCV MCH MCHC RDW Plt Count MPV Absolute Nucleated RBC Nucleated RBC % (auto) VBG pH VBG pCO2 VBG pO2 VBG HCO3 VBG O2 Saturation VBG Base Excess Sodium Potassium Chloride Carbon Dioxide Anion Gap BUN Creatinine Estim Creat Clear Calc Estimated GFR POC Glucose 90 Random Glucose Lactic Acid 3.0 H* Lactic Acid F/U @ 2Hr 4.2 H* Lactic Acid F/U @ 4Hr Calcium Magnesium Total Bilirubin AST ALT Alkaline Phosphatase Total Protein Albumin Urine Creatinine Urine Microalbumin Microalb/Creat Ratio Random Vancomycin 10/24/23 10/24/23 10/24/23 16:20 16:37 18:10 WBC RBC Hgb Hct MCV MCH MCHC RDW Plt Count MPV Absolute Nucleated RBC Nucleated RBC % (auto) VBG pH VBG pCO2 VBG pO2 VBG HCO3 VBG O2 Saturation VBG Base Excess Sodium 140 Potassium 3.3 Chloride 106 Carbon Dioxide 21 L Anion Gap 16 BUN 33 H Creatinine 1.95 H Estim Creat Clear Calc 34.3 Estimated GFR 33 POC Glucose 133 H Random Glucose 145 H Lactic Acid Lactic Acid F/U @ 2Hr Lactic Acid F/U @ 4Hr 4.8 H* Calcium 7.5 L D Magnesium Total Bilirubin AST ALT Alkaline Phosphatase Total Protein Albumin Urine Creatinine Urine Microalbumin Microalb/Creat Ratio Random Vancomycin 10/24/23 10/24/23 10/25/23 19:39 22:54 05:24 WBC RBC Hgb Hct MCV MCH MCHC RDW Plt Count MPV Absolute Nucleated RBC Nucleated RBC % (auto) VBG pH 7.36 VBG pCO2 34 VBG pO2 47 VBG HCO3 20 L VBG O2 Saturation 81.0 VBG Base Excess -4.5 Sodium 142 Potassium 3.4 Chloride 105 Carbon Dioxide 23 Anion Gap 17 BUN 35 H Creatinine 2.19 H Estim Creat Clear Calc 30.5 Estimated GFR 29 POC Glucose 159 H Random Glucose 108 Lactic Acid Lactic Acid F/U @ 2Hr Lactic Acid F/U @ 4Hr Calcium 7.8 L Magnesium 1.7 Total Bilirubin AST ALT Alkaline Phosphatase Total Protein Albumin Urine Creatinine Urine Microalbumin Microalb/Creat Ratio Random Vancomycin 05/17/24 05/17/24 05/17/24 07:19 07:20 08:27 WBC 18.6 H RBC 4.11 L Hgb 13.6 L Hct 41.6 L MCV 101.2 H D MCH 33.1 H MCHC 32.7 RDW 14.5 Plt Count 124 L MPV 10.0 Absolute Nucleated RBC 0.030 H Nucleated RBC % (auto) 0.2 VBG pH VBG pCO2 VBG pO2 VBG HCO3 VBG O2 Saturation VBG Base Excess Sodium 145 Potassium 3.5 Chloride 108 Carbon Dioxide 19 L Anion Gap 22 H BUN 37 H Creatinine 2.23 H Estim Creat Clear Calc 27.7 Estimated GFR 29 POC Glucose 91 Random Glucose 90 Lactic Acid Lactic Acid F/U @ 2Hr Lactic Acid F/U @ 4Hr Calcium 7.6 L Magnesium Total Bilirubin 0.8 AST 453 H ALT 138 H Alkaline Phosphatase 84 Total Protein 5.3 L Albumin 3.1 L Urine Creatinine Urine Microalbumin Microalb/Creat Ratio Random Vancomycin 13.7 L Microbiology Microbiology Results: Microbiology 10/22/23 12:04 Blood - Venous Blood Culture - Preliminary No growth after 48 hours. 10/22/23 12:04 Blood - Venous Blood Culture - Preliminary No growth after 48 hours. 10/21/23 20:24 Blood - Venous Blood Culture - Preliminary No growth after 48 hours. 10/21/23 20:24 Blood - Venous Blood Culture - Preliminary No growth after 48 hours. Progress Note: A&P Assessment and plan (1) Acute encephalopathy: Status: Acute (2) Septic shock: Status: Acute (3) Metabolic acidosis: Status: Acute (4) Acute kidney injury: Status: Acute (5) Sepsis: Status: Acute (6) Pneumonia: Status: Acute Plan Acute encephalopathy: Secondary to metabolic encephalopathy from severe sepsis, significantly better when compared to admission currently he is alert and oriented Less likely to be intracranial pathology given systemic findings of JIMBO, shock Septic shock: On phenylephrine and vasopressin drips for the management of septic shock, titrate to keep the map above 65 mm Hg. Levophed caused tachycardia and AFib with RVR Bedside echo showed hyperdynamic left heart showed close to normal LV systolic function, RV small, IVC 1.5 cm and fluctuating with respiration whereas lung showed diffuse B-lines. Respiratory: Tachypneic possibly secondary to early pneumonia, ultrasound of the lung showing diffuse B-lines in all the lung toribio He has slight worsening in his oxygen requirement, we will closely monitor his respiratory status, he is DNI DNR GI: We will start on NG tube feeds Acute kidney injury: Improved Possibly secondary to sepsis leading to ATN; also had urinary retention of about 1.2 L on placing Cummings catheter so possibly also has a component of obstructive uropathy Creatinine up to 3.51 upon admission, decreased to 1.91 but now slowly worsening with worsening shock, creatinine is up to 2.23 today also his pressor requirement has increased Bedside echo showed normal LV function, dilated RV, IVC is 2.2 cm non collapsing. Diffuse B-lines in all lung toribio suggestive of volume overload. We will diurese this patient with Lasix 80 mg t.i.d. today Urine output 1.4 L in the past 24 hours Monitor I's and O's Metabolic acidosis: Bicarb 19, we will add Bicitra; stop the bicarb drip as the patient is volume overloaded Possibly secondary to lactic acidosis and acute kidney injury beta hydroxybutyrate slightly elevated yesterday improved with IV fluids Infectious Disease: Cellulitis of the lower extremities is the possible source of infection started the patient on very broad-spectrum antibiotics Surgery consulted for possible need for debridement of the lower extremities X-ray feet did not show any evidence of osteomyelitis, however the skin changes looks superficial it is less likely that the patient has osteomyelitis Pending wound cultures Heme: Leukocytosis secondary to infection Endocrine: We will start on sliding scale insulin to control hyperglycemia HbA1c 5.3 Prophylaxis: Heparin, pantoprazole Quality Stroke Does the patient have a stroke diagnosis?: No VTE Prior VTE?: No VTE Risk Level:: Medical - moderate - high VTE Device Contraindication: N/A - Device Ordered VTE Drug Contraindication: N/A - Med Ordered
[2023-10-25] MEDS: Phenylephrine HCL 20 MG in 0.9 % Sodium Chloride 250 ML 133.21 MG IVCONT (08:57)
--- NOTE | 2023-10-25 08:59 | HE.PHANOTE ---
RE METHADONE Patients level came back this morning at 13.7. Patients indication is Skin, patient is in with in AUC goal. Will continue with current dose. Patients renal did worsen. NExt level for tomorrow 10/25 @0800.
[2023-10-25 09:07] LABS: MRSA Nasal PCR NEGATIVE (Negative); SA Nasal PCR POSITIVE (Negative)
[2023-10-25] MEDS: vancomycin HCL 500 MG in 0.9 % Sodium Chloride 100 ML 110 MG IV (09:31)
--- NOTE | 2023-10-25 10:21 | MHC.CLN ---
F/U PT WITH INCREASED NUTRITION RISK R/T PRESSURE INJURY DISCUSSED AT ROUNDS WITH MD; PLAN FOR DIURESIS DIET ADVANCED TO F/L POOR PO PER NSG PT RECEIVING ENSURE MAX TO PROMOTE WOUND HEALING SUPP PROVIDES 300KCALS, 60G PROTEIN MONITOR PO INTAKE AND ENCOURAGE SUPPLEMENTS
[2023-10-25] MEDS: Furosemide 100 MG/10 ML VIAL 80 MG IVPUSH ×2 (10:31→17:02)
[2023-10-25 11:15] LABS: Glucose, Whole Blood 91 mg/dL (60-115)
[2023-10-25] MEDS: Sodium Bicarbonate 650 MG TABLET PO (12:44)
--- NOTE | 2023-10-25 12:59 | MHC.CM.PN ---
Pt remains in ICU - will need CT of abd today d/t increasing liver function readings. Pt from home without services: has been referred for SNF placement following acute stay. CM to follow
[2023-10-25] MEDS: Norepinephrine Bitartrate/D5W 8 MG/250 ML PLAST..BAG 7.49 MG IV (13:23)
[2023-10-25] MEDS: Chlorothiazide Sodium 500 MG VIAL IVPUSH ×2 (13:47→21:03)
[2023-10-25] MEDS: 0.9 % Sodium Chloride Flush 3 ML SYRINGE IVFLUSH (15:25)
--- NOTE | 2023-10-25 15:33 | P.PNNP_ITS ---
Subjective Subjective Date of Service: 10/25/23 Interval history: Remain on multiple vasopressor support including Emmanuel-Synephrine and vasopressin support; all recent data reviewed Physical Exam 2 Vital Signs: Vital Signs: Last Vital Signs Temp 98.4 F 10/25/23 15:00 Pulse 105 H 10/25/23 15:31 Resp 22 H 10/25/23 15:00 BP 84/35 L 10/25/23 15:31 Pulse Ox 90 L 10/25/23 15:00 O2 Del Method Nasal Cannula 10/25/23 15:00 O2 Flow Rate 6 10/25/23 15:00 BMI result Body Mass Index 27.0 Const: General: no acute distress Neck: Neck: Yes supple Resp: Auscultation: diminished lung sounds Cardio: Rate: regular rate GI: Palpation (GI): Soft to palpation Neuro: General: moves all extremities Objective Data Labs 10/25/23 07:19 10/25/23 07:19 Labs: Laboratory Results - last 24 hr 10/23/23 10/24/23 10/24/23 21:12 16:20 16:37 WBC RBC Hgb Hct MCV MCH MCHC RDW Plt Count MPV Absolute Nucleated RBC Nucleated RBC % (auto) VBG pH VBG pCO2 VBG pO2 VBG HCO3 VBG O2 Saturation VBG Base Excess Sodium Potassium Chloride Carbon Dioxide Anion Gap BUN Creatinine Estim Creat Clear Calc Estimated GFR POC Glucose 133 H Random Glucose Lactic Acid F/U @ 4Hr 4.8 H* Calcium Magnesium Total Bilirubin AST ALT Alkaline Phosphatase Total Protein Albumin Urine Creatinine 42.63 Urine Microalbumin 84.0 Microalb/Creat Ratio 197.0 H Nasal Screen MRSA (PCR) Nasal S. aureus Screen Nasal MRSA/S.aureus Interp Random Vancomycin 10/24/23 10/24/23 10/24/23 18:10 19:39 20:03 WBC RBC Hgb Hct MCV MCH MCHC RDW Plt Count MPV Absolute Nucleated RBC Nucleated RBC % (auto) VBG pH VBG pCO2 VBG pO2 VBG HCO3 VBG O2 Saturation VBG Base Excess Sodium 140 Potassium 3.3 Chloride 106 Carbon Dioxide 21 L Anion Gap 16 BUN 33 H Creatinine 1.95 H Estim Creat Clear Calc 34.3 Estimated GFR 33 POC Glucose 159 H Random Glucose 145 H Lactic Acid F/U @ 4Hr Calcium 7.5 L D Magnesium Total Bilirubin AST ALT Alkaline Phosphatase Total Protein Albumin Urine Creatinine Urine Microalbumin Microalb/Creat Ratio Nasal Screen MRSA (PCR) NEGATIVE Nasal S. aureus Screen POSITIVE A Nasal MRSA/S.aureus Interp SEE NOTE Random Vancomycin 10/24/23 10/25/23 10/25/23 22:54 05:24 07:19 WBC 18.6 H RBC 4.11 L Hgb 13.6 L Hct 41.6 L MCV 101.2 H D MCH 33.1 H MCHC 32.7 RDW 14.5 Plt Count 124 L MPV 10.0 Absolute Nucleated RBC 0.030 H Nucleated RBC % (auto) 0.2 VBG pH 7.36 VBG pCO2 34 VBG pO2 47 VBG HCO3 20 L VBG O2 Saturation 81.0 VBG Base Excess -4.5 Sodium 142 145 Potassium 3.4 3.5 Chloride 105 108 Carbon Dioxide 23 19 L Anion Gap 17 22 H BUN 35 H 37 H Creatinine 2.19 H 2.23 H Estim Creat Clear Calc 30.5 27.7 Estimated GFR 29 29 POC Glucose Random Glucose 108 90 Lactic Acid F/U @ 4Hr Calcium 7.8 L 7.6 L Magnesium 1.7 Total Bilirubin 0.8 AST 453 H ALT 138 H Alkaline Phosphatase 84 Total Protein 5.3 L Albumin 3.1 L Urine Creatinine Urine Microalbumin Microalb/Creat Ratio Nasal Screen MRSA (PCR) Nasal S. aureus Screen Nasal MRSA/S.aureus Interp Random Vancomycin 10/25/23 10/25/23 10/25/23 07:20 08:27 11:10 WBC RBC Hgb Hct MCV MCH MCHC RDW Plt Count MPV Absolute Nucleated RBC Nucleated RBC % (auto) VBG pH VBG pCO2 VBG pO2 VBG HCO3 VBG O2 Saturation VBG Base Excess Sodium Potassium Chloride Carbon Dioxide Anion Gap BUN Creatinine Estim Creat Clear Calc Estimated GFR POC Glucose 91 91 Random Glucose Lactic Acid F/U @ 4Hr Calcium Magnesium Total Bilirubin AST ALT Alkaline Phosphatase Total Protein Albumin Urine Creatinine Urine Microalbumin Microalb/Creat Ratio Nasal Screen MRSA (PCR) Nasal S. aureus Screen Nasal MRSA/S.aureus Interp Random Vancomycin 13.7 L Microbiology Microbiology Results: Microbiology 10/22/23 12:04 Blood - Venous Blood Culture - Preliminary No growth after 48 hours. 10/22/23 12:04 Blood - Venous Blood Culture - Preliminary No growth after 48 hours. 10/21/23 20:24 Blood - Venous Blood Culture - Preliminary No growth after 48 hours. 10/21/23 20:24 Blood - Venous Blood Culture - Preliminary No growth after 48 hours. Procedures Date of Service Date of Service: 10/25/23 Assessment & Plan Assessment and plan (1) Acute kidney injury: Status: Acute Plan JIMBO due to tubular injury and obstructive uropathy Serum creatinine marginally worse due to shock Acidosis- likely multifactorial- improved; D/Po sodium bicarb No indication for renal replacement now C/W rest of current supportive management for now Labs AM; Shall closely follow up Progress Note: Quality Stroke Does the patient have a stroke diagnosis?: No
[2023-10-25 16:11] LABS: Glucose, Whole Blood 123 mg/dL (60-115)
[2023-10-25 21:11] LABS: Glucose, Whole Blood 148 mg/dL (60-115)
[2023-10-26] VITALS (40 sets, daily range): BP systolic 91–123; BP diastolic 45–75; PULSE 80–122; RESP 17–28; TEMP 36.3–37.1; O2SAT 88–99; BMI 26.9
[2023-10-26] MEDS: Vasopressin 20 UNIT/100 ML INFUS..BTL 12 UNIT IVCONT ×4 (00:12→22:56)
[2023-10-26] MEDS: Heparin Sodium,Porcine 5,000 UNIT/ML VIAL 5000 UNIT SUBCUT ×3 (00:13→17:39)
[2023-10-26] MEDS: 0.9 % Sodium Chloride Flush 3 ML SYRINGE IVFLUSH ×3 (00:14→23:10)
[2023-10-26] MEDS: Norepinephrine Bitartrate/D5W 8 MG/250 ML PLAST..BAG 19.48 MG IV (00:41)
[2023-10-26] MEDS: Furosemide 100 MG/10 ML VIAL 80 MG IVPUSH ×3 (02:57→17:40)
[2023-10-26] MEDS: Piperacillin Sodium/Tazobactam 2.25 GM in 0.9 % Sodium Chloride 50 ML IV ×3 (06:14→21:08)
[2023-10-26] MEDS: fentaNYL citrate/PF 100 MCG/2 ML VIAL 25 MCG IVPUSH ×6 (06:15→23:30)
[2023-10-26 07:32] LABS: Glucose, Whole Blood 176 mg/dL (60-115)
[2023-10-26 08:10] LABS: MANUAL DIFF FLAG NO
[2023-10-26 08:18] LABS: Basophils Absolute Auto 0.1 X10*3/uL (0.0-0.2); Basophils Percent Auto 0.3 % (0-2); Hemoglobin 12.8 g/dl (14.0-18.0); Imm Gran Abs Auto 0.58 X10*3/uL (0.00-0.03); Imm Gran Pct Auto 3.4 % (0.0-0.4); Lymphocytes Absolute Auto 1.1 X10*3/uL (1.2-4.9); Lymphocytes Percent Auto 6.7 % (20-40); Mean Corpuscular HGB Conc 32.8 g/dl (31.0-36.0); Mean Corpuscular Hemoglobin 32.7 pg (27.0-33.0); Mean Corpuscular Volume 99.7 fL (80.0-98.0); Mean Platelet Volume 10.2 fL (9.4-12.4); Monocytes Absolute Auto 0.6 X10*3/uL (0.1-1.2); Monocytes Percent Auto 3.5 % (2-11); NRBC Pct Auto 0.2 /100WBC (0.0-0.2); Neutrophils Absolute Auto 14.5 x10*3/uL (2.0-8.3); Neutrophils Percent Auto 86.1 % (45-73); Platelet Count 111 X10*3/uL (160-400); Red Blood Count 3.91 X10*6/uL (4.60-5.80); Red Cell Distribution Width 14.6 % (11.0-16.0); White Blood Count 16.9 X10*3/uL (4.8-10.8)
[2023-10-26] MEDS: Chlorothiazide Sodium 500 MG VIAL IVPUSH ×2 (08:22→20:38)
[2023-10-26 08:43] LABS: Vancomycin Random 16.1 mcg/mL (15-20)
[2023-10-26 09:08] LABS: Alanine Aminotransferase 247 U/L (0-40); Albumin Level 2.9 g/dL (3.5-5.0); Alkaline Phosphatase 102 U/L (39-117); Anion Gap 19 (12-20); Aspartate Amino Transferase 405 U/L (5-37); Bilirubin Total 0.7 mg/dL (0.0-1.0); Blood Urea Nitrogen 55 mg/dL (9-16); Calcium 7.6 mg/dL (8.4-10.2); Carbon Dioxide 25 mmol/L (22-29); Chloride 104 mmol/L (96-108); Creatinine Clr Calc Pharmacy 21.2; Estimated Glomerular Filt Rate 21; Glucose Random 186 mg/dL (60-115); Potassium 2.9 mmol/L (3.3-5.1); Sodium 145 mmol/L (135-145); Total Protein 5.1 g/dL (6.5-8.0)
--- NOTE | 2023-10-26 09:18 | P.PNCC_ITS ---
Subjective Subjective Date of Service: 10/26/23 Interval History: Continues to be critically ill with multiple organ failures On Levophed and vasopressin for vasopressor support Encephalopathy, worsening acute kidney injury Also has transaminitis was a part of multiorgan failure from septic shock Critical Care Time (minutes): 40 Physical Exam 2 Vital Signs: Vital Signs: Last Vital Signs Temp 98.2 F 10/26/23 08:00 Pulse 107 H 10/26/23 08:00 Resp 24 H 10/26/23 08:00 BP 119/60 10/26/23 08:22 Pulse Ox 95 10/26/23 08:00 O2 Del Method Nasal Cannula 10/26/23 08:00 O2 Flow Rate 5 10/26/23 08:00 BMI result Body Mass Index 26.9 General: in acute distress, ill appearing and tired appearing Nutritional Appearance: Cachectic, malnourished Eyes: appearance normal, both eyes and all related structures; Alignment and Position: alignment normal and position normal Neck: No lymphadenopathy, no thyromegaly Resp: bilateral air entry equal, crackles heard in the left lung areas more than the right lung areas Cardio: Regular rate, regular rhythm; Heart sounds: S1 normal heart sound present and S2 normal heart sound present GI: soft, nontender, no guarding, no hepatosplenomegaly : bladder normal to inspection, bladder normal to palpation, no renal angle tenderness Skin: Skin rashes and lesions in the left leg Neuro: oriented to person, oriented to place, oriented to time and moves all extremities Objective Data Labs 10/26/23 08:04 10/26/23 08:04 Labs: Laboratory Results - last 24 hr 10/25/23 10/25/23 10/25/23 11:10 16:08 21:08 WBC RBC Hgb Hct MCV MCH MCHC RDW Plt Count MPV Immature Gran % (Auto) Neut % (Auto) Lymph % (Auto) [place] % (Auto) Eos % (Auto) Baso % (Auto) Lymph # (Auto) [place] # (Auto) Eos # (Auto) Baso # (Auto) Abs Immat Gran (auto) Absolute Neuts (auto) Absolute Nucleated RBC Nucleated RBC % (auto) Sodium Potassium Chloride Carbon Dioxide Anion Gap BUN Creatinine Estim Creat Clear Calc Estimated GFR POC Glucose 91 123 H 148 H Random Glucose Calcium Total Bilirubin AST ALT Alkaline Phosphatase Total Protein Albumin Random Vancomycin 10/26/23 10/26/23 07:28 08:04 WBC 16.9 H RBC 3.91 L Hgb 12.8 L Hct 39.0 L MCV 99.7 H MCH 32.7 MCHC 32.8 RDW 14.6 Plt Count 111 L MPV 10.2 Immature Gran % (Auto) 3.4 H Neut % (Auto) 86.1 H Lymph % (Auto) 6.7 L [place] % (Auto) 3.5 Eos % (Auto) 0.0 Baso % (Auto) 0.3 Lymph # (Auto) 1.1 L [place] # (Auto) 0.6 Eos # (Auto) 0.0 Baso # (Auto) 0.1 Abs Immat Gran (auto) 0.58 H Absolute Neuts (auto) 14.5 H Absolute Nucleated RBC 0.040 H Nucleated RBC % (auto) 0.2 Sodium 145 Potassium 2.9 L* Chloride 104 Carbon Dioxide 25 Anion Gap 19 BUN 55 H Creatinine 2.91 H Estim Creat Clear Calc 21.2 Estimated GFR 21 POC Glucose 176 H Random Glucose 186 H Calcium 7.6 L Total Bilirubin 0.7 AST 405 H ALT 247 H Alkaline Phosphatase 102 Total Protein 5.1 L Albumin 2.9 L Random Vancomycin 16.1 Microbiology Microbiology Results: Microbiology 10/22/23 12:04 Blood - Venous Blood Culture - Preliminary No growth after 48 hours. 10/22/23 12:04 Blood - Venous Blood Culture - Preliminary No growth after 48 hours. 10/21/23 20:24 Blood - Venous Blood Culture - Preliminary No growth after 48 hours. 10/21/23 20:24 Blood - Venous Blood Culture - Preliminary No growth after 48 hours. Progress Note: A&P Assessment and plan (1) Acute encephalopathy: Status: Acute (2) Septic shock: Status: Acute (3) Acute kidney injury: Status: Acute (4) Transaminitis: Status: Acute (5) Sepsis: Status: Acute (6) Pneumonia: Status: Acute Plan Acute encephalopathy: Secondary to metabolic encephalopathy from severe sepsis, a little bit more confused this morning Less likely to be intracranial pathology given systemic findings of JIMBO, shock Septic shock: On Levophed and vasopressin drips for the management of septic shock, titrate to keep the map above 65 mm Hg. Bedside echo showed hyperdynamic left heart showed close to normal LV systolic function, RV enlarged, IVC 2.2 cm and fluctuating with respiration whereas lung showed diffuse B-lines all suggestive of volume overload. We will continue to diurese him. Respiratory: Tachypneic possibly secondary to early pneumonia, ultrasound of the lung showing diffuse B-lines in all the lung toribio we will closely monitor his respiratory status, he is DNI DNR GI: We will start on peripheral nutrition Transaminitis: Liver ultrasound showed chronic gallbladder hydrops Possibly as a part of sepsis and SIRS Acute kidney injury: Improved Possibly secondary to sepsis leading to ATN; also had urinary retention of about 1.2 L on placing Cummings catheter so possibly also has a component of obstructive uropathy Creatinine 3.51 upon admission, decreased to 1.91 but now slowly worsening with worsening shock as a part of multiorgan failure from SIRS and septic shock; creatinine increasing to 2.91 today. If the time comes that he needs renal replacement therapy the POA and son both agreed not to go on dialysis or any kind of organ support. Bedside echo showed normal LV function, dilated RV, IVC is 2.2 cm non collapsing. Diffuse B-lines in all lung toribio suggestive of volume overload. Continue diuresis with Lasix 80 mg t.i.d. today Urine output 2.3 L in the past 24 hours, net-800 cc Monitor I's and O's Metabolic acidosis: Bicarb 25, we will stop sodium bicarbonate pills Possibly secondary to lactic acidosis and acute kidney injury Infectious Disease: Cellulitis of the lower extremities is the possible source of infection started the patient on very broad-spectrum antibiotics Surgery consulted for possible need for debridement of the lower extremities X-ray feet did not show any evidence of osteomyelitis, however the skin changes looks superficial it is less likely that the patient has osteomyelitis Pending wound cultures Heme: Leukocytosis secondary to infection, improving Endocrine: sliding scale insulin to control hyperglycemia HbA1c 5.3 Prophylaxis: Heparin, pantoprazole Quality Stroke Does the patient have a stroke diagnosis?: No VTE Prior VTE?: No VTE Risk Level:: Medical - moderate - high VTE Device Contraindication: N/A - Device Ordered VTE Drug Contraindication: N/A - Med Ordered
[2023-10-26 12:43] LABS: Glucose, Whole Blood 177 mg/dL (60-115)
[2023-10-26] MEDS: Insulin Lispro 100 UNIT/ML 3 ML VIAL SUBCUT ×2 (12:44→22:00)
[2023-10-26] MEDS: Norepinephrine Bitartrate/D5W 8 MG/250 ML PLAST..BAG 16.48 MG IV (12:44)
[2023-10-26 13:00] LABS: Magnesium 1.6 mg/dL (1.6-2.6)
[2023-10-26] MEDS: KCl 20 mEq in 5% Dex/0.45% Sod 20 MEQ/1,000 ML IV.SOLN 42 MEQ IVCONT (13:40)
[2023-10-26 16:16] LABS: Glucose, Whole Blood 131 mg/dL (60-115)
[2023-10-26] MEDS: vancomycin HCL 500 MG in 0.9 % Sodium Chloride 100 ML 110 MG IV (16:19)
[2023-10-26] MEDS: Parenteral Nutrition 960 ML 40 ML IV (20:46)
[2023-10-26 21:23] LABS: Glucose, Whole Blood 158 mg/dL (60-115)
[2023-10-26] MEDS: Albumin Human 25 % 100 ML IV ×2 (21:48→23:06)
[2023-10-26] MEDS: Nystatin Powder 15 GM BOTTLE 1 APPL TOPICAL (22:00)
[2023-10-27] VITALS (39 sets, daily range): BP systolic 83–143; BP diastolic 45–81; PULSE 77–108; RESP 13–29; TEMP 36.4–36.9; O2SAT 90–100; BMI 26.4
[2023-10-27] MEDS: Heparin Sodium,Porcine 5,000 UNIT/ML VIAL 5000 UNIT SUBCUT ×3 (01:16→17:06)
[2023-10-27] MEDS: Furosemide 100 MG/10 ML VIAL 80 MG IVPUSH ×3 (01:17→17:17)
[2023-10-27] MEDS: fentaNYL citrate/PF 100 MCG/2 ML VIAL 25 MCG IVPUSH ×5 (04:44→19:50)
[2023-10-27] MEDS: Piperacillin Sodium/Tazobactam 2.25 GM in 0.9 % Sodium Chloride 50 ML IV ×3 (05:40→22:00)
[2023-10-27] MEDS: Norepinephrine Bitartrate/D5W 8 MG/250 ML PLAST..BAG 13.48 MG IV (06:24)
[2023-10-27] MEDS: Vasopressin 20 UNIT/100 ML INFUS..BTL 12 UNIT IVCONT ×3 (06:26→22:56)
[2023-10-27 07:17] LABS: Albumin Level 3.3 g/dL (3.5-5.0); Anion Gap 18 (12-20); Blood Urea Nitrogen 57 mg/dL (9-16); Calcium 8.1 mg/dL (8.4-10.2); Carbon Dioxide 28 mmol/L (22-29); Chloride 99 mmol/L (96-108); Creatinine Clr Calc Pharmacy 23.1; Estimated Glomerular Filt Rate 23; Glucose Random 118 mg/dL (60-115); Magnesium 1.7 mg/dL (1.6-2.6); Phosphorus 1.9 mg/dL (2.7-4.5); Potassium 2.4 mmol/L (3.3-5.1); Sodium 143 mmol/L (135-145)
[2023-10-27 07:38] LABS: Glucose, Whole Blood 154 mg/dL (60-115)
[2023-10-27] MEDS: Chlorothiazide Sodium 500 MG VIAL IVPUSH ×2 (08:30→20:28)
[2023-10-27] MEDS: 0.9 % Sodium Chloride Flush 3 ML SYRINGE IVFLUSH ×2 (08:30→16:04)
[2023-10-27] MEDS: Insulin Lispro 100 UNIT/ML 3 ML VIAL SUBCUT ×4 (08:30→20:37)
[2023-10-27] MEDS: Nystatin Powder 15 GM BOTTLE 1 APPL TOPICAL ×2 (08:31→20:45)
--- NOTE | 2023-10-27 10:55 | P.PNCC_ITS ---
Subjective Subjective Date of Service: 10/27/23 Critical Care Time (minutes): 35 Physical Exam 2 Vital Signs: Vital Signs: Last Vital Signs Temp 97.5 F 10/27/23 10:00 Pulse 92 10/27/23 10:00 Resp 22 H 10/27/23 10:00 BP 132/71 10/27/23 10:00 Pulse Ox 96 10/27/23 10:00 O2 Del Method Nasal Cannula 10/27/23 10:00 O2 Flow Rate 4 10/27/23 10:00 BMI result Body Mass Index 26.4 General: Patient acute distress, ill appearing and tired appearing Nutritional Appearance: Poorly nourished and under weight Eyes: appearance normal, both eyes and all related structures; Alignment and Position: alignment normal and position normal Neck: No lymphadenopathy, no thyromegaly Resp: bilateral air entry equal, crackles heard in left lung more than right lung t Cardio: Regular rate, regular rhythm; Heart sounds: S1 normal heart sound present and S2 normal heart sound present GI: soft, nontender, no guarding, no hepatosplenomegaly : bladder normal to inspection, bladder normal to palpation, no renal angle tenderness Skin: no rashes or lesions noted and elasticity normal Neuro: oriented to person, somewhat oriented to place, somewhat oriented to time and moves all extremities Objective Data Labs 10/26/23 08:04 10/27/23 06:01 Labs: Laboratory Results - last 24 hr 10/26/23 10/26/23 10/26/23 08:04 12:40 16:12 Sodium Potassium Chloride Carbon Dioxide Anion Gap BUN Creatinine Estim Creat Clear Calc Estimated GFR POC Glucose 177 H 131 H Random Glucose Calcium Phosphorus 5.0 H Magnesium 1.6 Albumin 10/26/23 10/27/23 10/27/23 21:20 06:01 07:32 Sodium 143 Potassium 2.4 L* Chloride 99 Carbon Dioxide 28 Anion Gap 18 BUN 57 H Creatinine 2.67 H Estim Creat Clear Calc 23.1 Estimated GFR 23 POC Glucose 158 H 154 H Random Glucose 118 H Calcium 8.1 L D Phosphorus 1.9 L Magnesium 1.7 Albumin 3.3 L Microbiology Microbiology Results: Microbiology 10/21/23 20:24 Blood - Venous Blood Culture - Final No growth after 5 days. 10/21/23 20:24 Blood - Venous Blood Culture - Final No growth after 5 days. 10/22/23 12:04 Blood - Venous Blood Culture - Preliminary No growth after 48 hours. 10/22/23 12:04 Blood - Venous Blood Culture - Preliminary No growth after 48 hours. Progress Note: A&P Assessment and plan (1) Transaminitis: Status: Acute (2) Acute encephalopathy: Status: Acute (3) Septic shock: Status: Acute (4) Metabolic acidosis: Status: Acute (5) Acute hyperkalemia: Status: Acute (6) Acute kidney injury: Status: Acute Plan Acute encephalopathy: Secondary to metabolic encephalopathy from severe sepsis Less likely to be intracranial pathology given systemic findings of JIMBO, shock Septic shock: On Levophed and vasopressin drips for the management of septic shock, titrate to keep the map above 65 mm Hg. Bedside echo showed hyperdynamic left heart showed close to normal LV systolic function, RV enlarged, IVC 1.8 cm and not fluctuating with respiration whereas lung showed diffuse B-lines still suggestive of volume overload. We will continue to diurese him but we will decrease the diuresis today. Respiratory: Tachypneic possibly secondary to early pneumonia, ultrasound of the lung showing diffuse B-lines in all the lung toribio we will closely monitor his respiratory status, he is DNI DNR GI: We will start on peripheral nutrition Transaminitis: Liver ultrasound showed chronic gallbladder hydrops Possibly as a part of sepsis and SIRS Acute kidney injury: Improved Possibly secondary to sepsis leading to ATN; also had urinary retention of about 1.2 L on placing Cummings catheter so possibly also has a component of obstructive uropathy Creatinine 3.51 upon admission, decreased to 1.91 but now slowly worsening with worsening shock as a part of multiorgan failure from SIRS and septic shock Creatinine down to 2.67 from 2.97 today If the time comes that he needs renal replacement therapy the POA and son both agreed not to go on dialysis or any kind of organ support. Bedside echo showed normal LV function, dilated RV, IVC is 1.8 cm non collapsing. Diffuse B-lines in all lung toribio suggestive of volume overload. We will decrease the diuresis to Lasix 80 mg twice today along with Diuril Urine output 2.3 L in the past 24 hours, net-4100 cc Monitor I's and O's Infectious Disease: Cellulitis of the lower extremities is the possible source of infection started the patient on very broad-spectrum antibiotics Surgery consulted for possible need for debridement of the lower extremities X-ray feet did not show any evidence of osteomyelitis, however the skin changes looks superficial it is less likely that the patient has osteomyelitis Pending wound cultures Heme: Leukocytosis secondary to infection, improving Endocrine: sliding scale insulin to control hyperglycemia HbA1c 5.3 Prophylaxis: Heparin, pantoprazole Quality Stroke Does the patient have a stroke diagnosis?: No VTE Prior VTE?: No VTE Risk Level:: Medical - moderate - high VTE Device Contraindication: N/A - Device Ordered VTE Drug Contraindication: N/A - Med Ordered
--- NOTE | 2023-10-27 11:15 | MHC.CLN ---
RE: CONSULT PT STARTED PPN OVER WEEKEND REVIEWED LABS DISCUSSED WITH PHARMACY RECOMMEND INCREASING PPN TO 60ML/HR TO PROVIDE 734KCALS, 144G DEXTROSE, 61G PROTEIN REPLETE LYTES NEEDED FULL CLINICAL NUTRITION ASSESSMENT TO FOLLOW
[2023-10-27 11:33] LABS: Glucose, Whole Blood 165 mg/dL (60-115)
[2023-10-27] MEDS: Potassium Chloride/H20 10 MEQ/100 ML PIGGYBACK 100 MEQ IV ×4 (13:55→17:03)
[2023-10-27 15:02] LABS: Vancomycin Random 19.9 mcg/mL (15-20)
[2023-10-27 17:16] LABS: Glucose, Whole Blood 154 mg/dL (60-115)
[2023-10-27 20:34] LABS: Glucose, Whole Blood 154 mg/dL (60-115)
[2023-10-27] MEDS: Parenteral Nutrition 1,440 ML 60 ML IV (20:38)
[2023-10-28] VITALS (39 sets, daily range): BP systolic 86–153; BP diastolic 43–89; PULSE 70–91; RESP 15–27; TEMP 35.4–36.9; O2SAT 90–97; BMI 25.3
--- NOTE | 2023-10-28 | ECG_ITS ---
Test Reason : qtc Blood Pressure : / mmHG Vent. Rate : 071 BPM Atrial Rate : 000 BPM P-R Int : 000 ms QRS Dur : 090 ms QT Int : 434 ms P-R-T Axes : 000 072 108 degrees QTc Int : 471 ms Atrial fibrillation Minimal voltage criteria for LVH, may be normal variant ( Sokolow-Barksdale ) ST depression, consider subendocardial injury Abnormal ECG When compared with ECG of 21-OCT-2023 21:59, anterolateral ST depressions present Referred By: Oly Rowley Electronically Signed By:Juan Carlos Sargent
[2023-10-28] MEDS: Heparin Sodium,Porcine 5,000 UNIT/ML VIAL 5000 UNIT SUBCUT ×3 (00:36→16:51)
[2023-10-28] MEDS: 0.9 % Sodium Chloride Flush 3 ML SYRINGE IVFLUSH ×4 (00:39→19:55)
[2023-10-28] MEDS: Furosemide 100 MG/10 ML VIAL 80 MG IVPUSH (01:30)
[2023-10-28] MEDS: fentaNYL citrate/PF 100 MCG/2 ML VIAL 25 MCG IVPUSH ×5 (01:32→20:19)
[2023-10-28 05:18] LABS: VBG Base Excess 22.4 mmol/L; VBG HCO3 46 mmol/L (22-26); VBG pCO2 44 mmHg; VBG pH 7.62 (7.32-7.43); VBG pO2 36 mmHg
[2023-10-28 05:22] LABS: Venous Blood Gas Refer to POC result
[2023-10-28] MEDS: Piperacillin Sodium/Tazobactam 2.25 GM in 0.9 % Sodium Chloride 50 ML IV ×3 (05:42→21:06)
[2023-10-28 05:50] LABS: MANUAL DIFF FLAG NO
[2023-10-28 05:52] LABS: Basophils Percent Auto 0.2 % (0-2); Eosinophils Percent Auto 0.1 % (0-4); Hematocrit 35.6 % (42.0-52.0); Hemoglobin 12.2 g/dl (14.0-18.0); Imm Gran Abs Auto 0.24 X10*3/uL (0.00-0.03); Imm Gran Pct Auto 2.7 % (0.0-0.4); Lymphocytes Percent Auto 11.8 % (20-40); Mean Corpuscular HGB Conc 34.3 g/dl (31.0-36.0); Mean Corpuscular Hemoglobin 32.6 pg (27.0-33.0); Mean Corpuscular Volume 95.2 fL (80.0-98.0); Mean Platelet Volume 10.8 fL (9.4-12.4); Monocytes Absolute Auto 0.5 X10*3/uL (0.1-1.2); Monocytes Percent Auto 5.8 % (2-11); NRBC Pct Auto 0.2 /100WBC (0.0-0.2); Neutrophils Percent Auto 79.4 % (45-73); Red Blood Count 3.74 X10*6/uL (4.60-5.80); Red Cell Distribution Width 13.6 % (11.0-16.0); White Blood Count 8.8 X10*3/uL (4.8-10.8)
[2023-10-28 05:55] LABS: Platelet Count 75 X10*3/uL (160-400)
[2023-10-28 06:13] LABS: Alanine Aminotransferase 123 U/L (0-40); Albumin Level 3.3 g/dL (3.5-5.0); Alkaline Phosphatase 92 U/L (39-117); Anion Gap 23 (12-20); Aspartate Amino Transferase 92 U/L (5-37); Bilirubin Total 1.8 mg/dL (0.0-1.0); Blood Urea Nitrogen 62 mg/dL (9-16); Calcium 9.1 mg/dL (8.4-10.2); Carbon Dioxide 33 mmol/L (22-29); Chloride 89 mmol/L (96-108); Creatinine Clr Calc Pharmacy 23.8; Estimated Glomerular Filt Rate 24; Glucose Random 169 mg/dL (60-115); Magnesium 1.6 mg/dL (1.6-2.6); Potassium 2.7 mmol/L (3.3-5.1); Sodium 142 mmol/L (135-145); Total Protein 5.8 g/dL (6.5-8.0)
[2023-10-28] MEDS: Potassium Phosphate/NS 15 MMOL/250 ML PLAST..BAG 62.5 MMOL IV ×2 (06:23→10:47)
[2023-10-28] MEDS: Vasopressin 20 UNIT/100 ML INFUS..BTL 12 UNIT IVCONT ×3 (06:32→22:43)
[2023-10-28 08:47] LABS: Vancomycin Random 18.9 mcg/mL (15-20)
[2023-10-28] MEDS: Albumin Human 25 % 100 ML IV ×3 (08:53→19:52)
[2023-10-28] MEDS: Nystatin Powder 15 GM BOTTLE 1 APPL TOPICAL ×2 (08:54→20:16)
[2023-10-28] MEDS: Potassium Chloride/H20 10 MEQ/100 ML PIGGYBACK 100 MEQ IV ×8 (10:18→23:01)
[2023-10-28] MEDS: fentaNYL citrate/PF 100 MCG/2 ML VIAL 50 MCG IVPUSH (10:49)
--- NOTE | 2023-10-28 10:58 | MHC.CLN ---
F/U PT WITH INCREASED NUTRITION RISK R/T PRESSURE INJURY AND POOR PO CURRENTLY NPO-FAILING MULTIPLE SWALLOW EVALS DISCUSSED AT ROUNDS WITH MD PT CONTINUES ON PPN DISCUSSED WITH PHARM 10/28/23 RECOMMEND PPN AT 80ML/HR TO PROVIDE 979KCALS, 192G DEXTROSE, 82G PROTEIN REPLETE LYTES NEEDED CHECK K+, MG, PHOS AND TRIGS SEE ALSO FULL CLINICAL NUTRITION ASSESSMENT
--- NOTE | 2023-10-28 11:53 | P.PNCC_ITS ---
Subjective Subjective Date of Service: 10/28/23 Interval History: 78-year-old gentleman with underlying COPD, diabetes mellitus, CAD, pulmonary hypertension admitted on 10/22/2023 after wellness check found patient lethargic. On ER evaluation patient with acute renal failure, lactic acidosis, hyperkalemia initially admitted to telemetry requiring initiation of pressor support and transfer to intensive care unit for septic shock with ?skin source. Hospital course complicated by refeeding syndrome. No events overnight. Critical Care Time (minutes): 60 Physical Exam 2 Vital Signs: Vital Signs: Last Vital Signs Temp 97.8 F 10/28/23 11:00 Pulse 83 10/28/23 11:00 Resp 18 10/28/23 11:00 BP 133/69 10/28/23 11:00 Pulse Ox 91 L 10/28/23 11:00 O2 Del Method Room Air 10/28/23 11:00 O2 Flow Rate 2 10/27/23 19:00 BMI result Body Mass Index 25.3 Const: General: no acute distress, alert (To self only) and awake Eyes: Sclerae: sclerae normal EOM: EOMs intact bilaterally Neck: Neck: Yes no lymphadenopathy, Yes trachea midline and Yes supple Resp: Effort & Inspection: normal respiratory effort and no respiratory distress Auscultation: clear to auscultation bilaterally Cardio: Rate: regular rate Rhythm: regular rhythm Heart sounds: no gallops, no murmurs and no rubs GI: Palpation (GI): Soft to palpation and Other GI palpation findings present ( Nontender) Auscultation: normal bowel sounds Extrem: General: No clubbing, No cyanosis and Yes edema (2+ bilateral) Objective Data Labs 10/28/23 05:12 10/28/23 05:12 Labs: Laboratory Results - last 24 hr 10/27/23 10/27/23 10/27/23 14:27 17:13 20:31 WBC RBC Hgb Hct MCV MCH MCHC RDW Plt Count MPV Immature Gran % (Auto) Neut % (Auto) Lymph % (Auto) [place] % (Auto) Eos % (Auto) Baso % (Auto) Lymph # (Auto) [place] # (Auto) Eos # (Auto) Baso # (Auto) Abs Immat Gran (auto) Absolute Neuts (auto) Absolute Nucleated RBC Nucleated RBC % (auto) VBG pH VBG pCO2 VBG pO2 VBG HCO3 VBG O2 Saturation VBG Base Excess Sodium Potassium Chloride Carbon Dioxide Anion Gap BUN Creatinine Estim Creat Clear Calc Estimated GFR POC Glucose 154 H 154 H Random Glucose Calcium Phosphorus Magnesium Total Bilirubin AST ALT Alkaline Phosphatase Total Protein Albumin Random Vancomycin 19.9 10/28/23 10/28/23 10/28/23 05:10 05:12 08:14 WBC 8.8 RBC 3.74 L Hgb 12.2 L Hct 35.6 L MCV 95.2 MCH 32.6 MCHC 34.3 RDW 13.6 Plt Count 75 L D MPV 10.8 Immature Gran % (Auto) 2.7 H Neut % (Auto) 79.4 H Lymph % (Auto) 11.8 L [place] % (Auto) 5.8 Eos % (Auto) 0.1 Baso % (Auto) 0.2 Lymph # (Auto) 1.0 L [place] # (Auto) 0.5 Eos # (Auto) 0.0 Baso # (Auto) 0.0 Abs Immat Gran (auto) 0.24 H Absolute Neuts (auto) 7.0 Absolute Nucleated RBC 0.020 H Nucleated RBC % (auto) 0.2 VBG pH 7.62 H* VBG pCO2 44 VBG pO2 36 VBG HCO3 46 H VBG O2 Saturation 65.0 VBG Base Excess 22.4 Sodium 142 Potassium 2.7 L* Chloride 89 L Carbon Dioxide 33 H Anion Gap 23 H BUN 62 H Creatinine 2.59 H Estim Creat Clear Calc 23.8 Estimated GFR 24 POC Glucose Random Glucose 169 H Calcium 9.1 D Phosphorus 1.0 L* Magnesium 1.6 Total Bilirubin 1.8 H AST 92 H ALT 123 H Alkaline Phosphatase 92 Total Protein 5.8 L Albumin 3.3 L Random Vancomycin 18.9 Microbiology Microbiology Results: Microbiology 10/22/23 12:04 Blood - Venous Blood Culture - Final No growth after 5 days. 10/22/23 12:04 Blood - Venous Blood Culture - Final No growth after 5 days. 10/21/23 20:24 Blood - Venous Blood Culture - Final No growth after 5 days. 10/21/23 20:24 Blood - Venous Blood Culture - Final No growth after 5 days. Progress Note: A&P Assessment and plan (1) Acute encephalopathy: Status: Acute (2) Septic shock: Status: Acute (3) Acute kidney injury: Status: Acute (4) Stasis ulcer of right lower extremity: Status: Acute (5) CAD (coronary artery disease): Status: Acute (6) Leg ulcer, left: Status: Acute Plan Assessment: 78-year-old gentleman admitted with failure to thrive, JIMBO, and septic shock Plan: Neuro: No acute issues. Cardiac: Continue to titrate off pressor support as tolerated. Pulmonary: No acute issues. Renal: Acute kidney injury. Non oliguric. Continue to monitor renal indices and urine output. Continue with IV diuresis. Endo: No acute issues. GI: Refeeding syndrome. Continue to replace electrolytes. Continue PPN. ID: Empiric broad-spectrum antibiotic antibiotic coverage. Cultures negative to date. Heme/Onc: No acute issues. Psych: No acute issues. Miscellaneous: No acute issues. Prophylaxis: Heparin Diet: PPN Critical care time spent: 60 minutes Quality Stroke Does the patient have a stroke diagnosis?: No VTE Prior VTE?: No VTE Risk Level:: Medical - moderate - high VTE Device Contraindication: N/A - Device Ordered VTE Drug Contraindication: N/A - Med Ordered
[2023-10-28 11:57] LABS: Glucose, Whole Blood 280 mg/dL (60-115)
[2023-10-28] MEDS: Insulin Lispro 100 UNIT/ML 3 ML VIAL SUBCUT ×3 (12:00→23:37)
--- NOTE | 2023-10-28 12:59 | P.PNNP_ITS ---
Subjective Subjective Date of Service: 10/28/23 Interval history: No events overnight. All recent data reviewed Physical Exam 2 Vital Signs: Vital Signs: Last Vital Signs Temp 97.7 F 10/28/23 12:00 Pulse 84 10/28/23 12:00 Resp 24 H 10/28/23 12:00 BP 104/57 L 10/28/23 12:00 Pulse Ox 92 10/28/23 12:00 O2 Del Method Room Air 10/28/23 12:00 O2 Flow Rate 2 10/27/23 19:00 BMI result Body Mass Index 25.3 Const: General: no acute distress Neck: Neck: Yes supple Resp: Auscultation: diminished lung sounds Cardio: Rate: regular rate GI: Palpation (GI): Soft to palpation Neuro: General: moves all extremities Objective Data Labs 10/28/23 05:12 10/28/23 05:12 Labs: Laboratory Results - last 24 hr 10/27/23 10/27/23 10/27/23 14:27 17:13 20:31 WBC RBC Hgb Hct MCV MCH MCHC RDW Plt Count MPV Immature Gran % (Auto) Neut % (Auto) Lymph % (Auto) [place] % (Auto) Eos % (Auto) Baso % (Auto) Lymph # (Auto) [place] # (Auto) Eos # (Auto) Baso # (Auto) Abs Immat Gran (auto) Absolute Neuts (auto) Absolute Nucleated RBC Nucleated RBC % (auto) VBG pH VBG pCO2 VBG pO2 VBG HCO3 VBG O2 Saturation VBG Base Excess Sodium Potassium Chloride Carbon Dioxide Anion Gap BUN Creatinine Estim Creat Clear Calc Estimated GFR POC Glucose 154 H 154 H Random Glucose Calcium Phosphorus Magnesium Total Bilirubin AST ALT Alkaline Phosphatase Total Protein Albumin Random Vancomycin 19.9 10/28/23 10/28/23 10/28/23 05:10 05:12 08:14 WBC 8.8 RBC 3.74 L Hgb 12.2 L Hct 35.6 L MCV 95.2 MCH 32.6 MCHC 34.3 RDW 13.6 Plt Count 75 L D MPV 10.8 Immature Gran % (Auto) 2.7 H Neut % (Auto) 79.4 H Lymph % (Auto) 11.8 L [place] % (Auto) 5.8 Eos % (Auto) 0.1 Baso % (Auto) 0.2 Lymph # (Auto) 1.0 L [place] # (Auto) 0.5 Eos # (Auto) 0.0 Baso # (Auto) 0.0 Abs Immat Gran (auto) 0.24 H Absolute Neuts (auto) 7.0 Absolute Nucleated RBC 0.020 H Nucleated RBC % (auto) 0.2 VBG pH 7.62 H* VBG pCO2 44 VBG pO2 36 VBG HCO3 46 H VBG O2 Saturation 65.0 VBG Base Excess 22.4 Sodium 142 Potassium 2.7 L* Chloride 89 L Carbon Dioxide 33 H Anion Gap 23 H BUN 62 H Creatinine 2.59 H Estim Creat Clear Calc 23.8 Estimated GFR 24 POC Glucose Random Glucose 169 H Calcium 9.1 D Phosphorus 1.0 L* Magnesium 1.6 Total Bilirubin 1.8 H AST 92 H ALT 123 H Alkaline Phosphatase 92 Total Protein 5.8 L Albumin 3.3 L Random Vancomycin 18.9 10/28/23 11:54 WBC RBC Hgb Hct MCV MCH MCHC RDW Plt Count MPV Immature Gran % (Auto) Neut % (Auto) Lymph % (Auto) [place] % (Auto) Eos % (Auto) Baso % (Auto) Lymph # (Auto) [place] # (Auto) Eos # (Auto) Baso # (Auto) Abs Immat Gran (auto) Absolute Neuts (auto) Absolute Nucleated RBC Nucleated RBC % (auto) VBG pH VBG pCO2 VBG pO2 VBG HCO3 VBG O2 Saturation VBG Base Excess Sodium Potassium Chloride Carbon Dioxide Anion Gap BUN Creatinine Estim Creat Clear Calc Estimated GFR POC Glucose 280 H Random Glucose Calcium Phosphorus Magnesium Total Bilirubin AST ALT Alkaline Phosphatase Total Protein Albumin Random Vancomycin Microbiology Microbiology Results: Microbiology 10/22/23 12:04 Blood - Venous Blood Culture - Final No growth after 5 days. 10/22/23 12:04 Blood - Venous Blood Culture - Final No growth after 5 days. 10/21/23 20:24 Blood - Venous Blood Culture - Final No growth after 5 days. 10/21/23 20:24 Blood - Venous Blood Culture - Final No growth after 5 days. Procedures Date of Service Date of Service: 10/28/23 Assessment & Plan Assessment and plan (1) Acute kidney injury: Status: Acute Plan JIMBO due to tubular injury and obstructive uropathy Serum creatinine was worse due to shock- better now No indication for renal replacement now C/W rest of current supportive management for now Labs AM; Shall closely follow up Progress Note: Quality Stroke Does the patient have a stroke diagnosis?: No
[2023-10-28] MEDS: fentaNYL 50 MCG PATCH.TD72 TRANSDERMA (14:38)
--- NOTE | 2023-10-28 14:39 | MHC.CM.PN ---
Pt continues on pressors in ICU: weaning attempts have begun: Pt has been on PPN x 2 days after several failed swallow evals. SNF referrals updated: pt will need PT and/or OT eval once medically stable. CM to follow
[2023-10-28] MEDS: Norepinephrine Bitartrate/D5W 8 MG/250 ML PLAST..BAG 3 MG IV (16:51)
[2023-10-28 17:37] LABS: Glucose, Whole Blood 263 mg/dL (60-115)
[2023-10-28 18:57] LABS: Anion Gap 22 (12-20); Blood Urea Nitrogen 60 mg/dL (9-16); Calcium 9.4 mg/dL (8.4-10.2); Carbon Dioxide 35 mmol/L (22-29); Chloride 87 mmol/L (96-108); Estimated Glomerular Filt Rate 28; Glucose Random 290 mg/dL (60-115); Magnesium 1.7 mg/dL (1.6-2.6); Phosphorus 2.7 mg/dL (2.7-4.5); Potassium 3.1 mmol/L (3.3-5.1); Sodium 141 mmol/L (135-145)
[2023-10-28] MEDS: Parenteral Nutrition 1,920 ML 80 ML IV (21:54)
[2023-10-28] MEDS: Haloperidol Lactate 5 MG/ML VIAL 1 MG IM (21:54)
[2023-10-28 23:34] LABS: Glucose, Whole Blood 213 mg/dL (60-115)
[2023-10-28] MEDS: dexmedeTOMIDidine HCL/NS 400 MCG/100 ML INFUS..BTL 10 MCG IVCONT (23:42)
[2023-10-29] VITALS (43 sets, daily range): BP systolic 83–143; BP diastolic 34–83; PULSE 52–93; RESP 13–28; TEMP 36.1–37.2; O2SAT 90–99; BMI 24.1
[2023-10-29] MEDS: Heparin Sodium,Porcine 5,000 UNIT/ML VIAL 5000 UNIT SUBCUT (00:10)
[2023-10-29] MEDS: Albumin Human 25 % 100 ML IV (02:33)
[2023-10-29 05:27] LABS: VBG Base Excess 27.1 mmol/L; VBG HCO3 50 mmol/L (22-26); VBG pCO2 45 mmHg; VBG pH 7.65 (7.32-7.43); VBG pO2 57 mmHg
[2023-10-29 05:46] LABS: MANUAL DIFF FLAG NO
[2023-10-29 05:48] LABS: Basophils Percent Auto 0.1 % (0-2); Eosinophils Percent Auto 0.3 % (0-4); Hematocrit 30.2 % (42.0-52.0); Hemoglobin 10.3 g/dl (14.0-18.0); Imm Gran Pct Auto 1.4 % (0.0-0.4); Lymphocytes Absolute Auto 1.1 X10*3/uL (1.2-4.9); Lymphocytes Percent Auto 15.1 % (20-40); Mean Corpuscular HGB Conc 34.1 g/dl (31.0-36.0); Mean Corpuscular Hemoglobin 32.3 pg (27.0-33.0); Mean Corpuscular Volume 94.7 fL (80.0-98.0); Mean Platelet Volume 11.4 fL (9.4-12.4); Monocytes Absolute Auto 0.4 X10*3/uL (0.1-1.2); Monocytes Percent Auto 5.9 % (2-11); Neutrophils Absolute Auto 5.7 x10*3/uL (2.0-8.3); Neutrophils Percent Auto 77.2 % (45-73); Platelet Count 53 X10*3/uL (160-400); Red Blood Count 3.19 X10*6/uL (4.60-5.80); Red Cell Distribution Width 14.3 % (11.0-16.0); White Blood Count 7.3 X10*3/uL (4.8-10.8)
[2023-10-29 06:07] LABS: Alanine Aminotransferase 71 U/L (0-40); Alkaline Phosphatase 70 U/L (39-117); Anion Gap 21 (12-20); Aspartate Amino Transferase 36 U/L (5-37); Bilirubin Total 1.5 mg/dL (0.0-1.0); Blood Urea Nitrogen 68 mg/dL (9-16); Calcium 9.8 mg/dL (8.4-10.2); Carbon Dioxide 37 mmol/L (22-29); Chloride 87 mmol/L (96-108); Creatinine Clr Calc Pharmacy 26.8; Estimated Glomerular Filt Rate 28; Glucose Random 264 mg/dL (60-115); Magnesium 1.8 mg/dL (1.6-2.6); Phosphorus 2.6 mg/dL (2.7-4.5); Potassium 3.5 mmol/L (3.3-5.1); Sodium 141 mmol/L (135-145); Total Protein 6.1 g/dL (6.5-8.0); Triglycerides 101 mg/dL (<150)
[2023-10-29 06:17] LABS: Venous Blood Gas Refer to POC result
[2023-10-29] MEDS: Insulin Lispro 100 UNIT/ML 3 ML VIAL SUBCUT ×3 (06:43→23:58)
[2023-10-29] MEDS: Piperacillin Sodium/Tazobactam 2.25 GM in 0.9 % Sodium Chloride 50 ML IV ×2 (06:43→18:07)
[2023-10-29] MEDS: Vasopressin 20 UNIT/100 ML INFUS..BTL 12 UNIT IVCONT ×3 (06:46→22:08)
[2023-10-29] MEDS: 0.9 % Sodium Chloride Flush 3 ML SYRINGE IVFLUSH ×2 (07:50→21:24)
[2023-10-29] MEDS: Nystatin Powder 15 GM BOTTLE 1 APPL TOPICAL ×2 (07:53→21:24)
[2023-10-29 08:35] LABS: Triglycerides 106 mg/dL (<150)
--- NOTE | 2023-10-29 09:47 | PM.PNNEP ---
Subjective Subjective Date of Service: 10/29/23 Interval history: Events noted. Creatinine remains relatively unchanged. Still above based Physical Exam Vital Signs: Vital Signs: Last Vital Signs Temp 97.5 F 10/29/23 09:00 Pulse 74 10/29/23 09:02 Resp 21 H 10/29/23 09:00 BP 143/59 H 10/29/23 09:02 Pulse Ox 99 10/29/23 09:00 O2 Del Method Room Air 10/29/23 09:00 O2 Flow Rate 2 10/29/23 03:00 BMI result Body Mass Index 24.1 Const: General: ill appearing Neck: Neck: Yes supple Resp: Auscultation: clear to auscultation bilaterally Cardio: Palpation: no palpable S3 Heart sounds: no rubs GI: Palpation (GI): Soft to palpation Auscultation: normal bowel sounds Neuro: Motor exam (neuro): no asterixis Objective Data Labs 10/29/23 05:20 10/29/23 05:20 Labs: Laboratory Results - last 24 hr 10/28/23 10/28/23 10/28/23 11:54 17:33 18:17 WBC RBC Hgb Hct MCV MCH MCHC RDW Plt Count MPV Immature Gran % (Auto) Neut % (Auto) Lymph % (Auto) [place] % (Auto) Eos % (Auto) Baso % (Auto) Lymph # (Auto) [place] # (Auto) Eos # (Auto) Baso # (Auto) Abs Immat Gran (auto) Absolute Neuts (auto) Absolute Nucleated RBC Nucleated RBC % (auto) VBG pH VBG pCO2 VBG pO2 VBG HCO3 VBG O2 Saturation VBG Base Excess Sodium 141 Potassium 3.1 L Chloride 87 L Carbon Dioxide 35 H Anion Gap 22 H BUN 60 H Creatinine 2.29 H Estim Creat Clear Calc 27.0 Estimated GFR 28 POC Glucose 280 H 263 H Random Glucose 290 H Calcium 9.4 Phosphorus 2.7 Magnesium 1.7 Total Bilirubin AST ALT Alkaline Phosphatase Total Protein Albumin Triglycerides 10/28/23 10/29/23 10/29/23 23:31 05:19 05:20 WBC 7.3 RBC 3.19 L Hgb 10.3 L Hct 30.2 L MCV 94.7 MCH 32.3 MCHC 34.1 RDW 14.3 Plt Count 53 L D MPV 11.4 Immature Gran % (Auto) 1.4 H Neut % (Auto) 77.2 H Lymph % (Auto) 15.1 L [place] % (Auto) 5.9 Eos % (Auto) 0.3 Baso % (Auto) 0.1 Lymph # (Auto) 1.1 L [place] # (Auto) 0.4 Eos # (Auto) 0.0 Baso # (Auto) 0.0 Abs Immat Gran (auto) 0.10 H Absolute Neuts (auto) 5.7 Absolute Nucleated RBC 0.000 Nucleated RBC % (auto) 0.0 VBG pH 7.65 H* VBG pCO2 45 VBG pO2 57 VBG HCO3 50 H VBG O2 Saturation 91.0 VBG Base Excess 27.1 Sodium 141 Potassium 3.5 Chloride 87 L Carbon Dioxide 37 H Anion Gap 21 H BUN 68 H Creatinine 2.30 H Estim Creat Clear Calc 26.8 Estimated GFR 28 POC Glucose 213 H Random Glucose 264 H Calcium 9.8 Phosphorus 2.6 L Magnesium 1.8 Total Bilirubin 1.5 H AST 36 ALT 71 H Alkaline Phosphatase 70 Total Protein 6.1 L Albumin 4.0 Triglycerides 101 10/29/23 08:10 WBC RBC Hgb Hct MCV MCH MCHC RDW Plt Count MPV Immature Gran % (Auto) Neut % (Auto) Lymph % (Auto) [place] % (Auto) Eos % (Auto) Baso % (Auto) Lymph # (Auto) [place] # (Auto) Eos # (Auto) Baso # (Auto) Abs Immat Gran (auto) Absolute Neuts (auto) Absolute Nucleated RBC Nucleated RBC % (auto) VBG pH VBG pCO2 VBG pO2 VBG HCO3 VBG O2 Saturation VBG Base Excess Sodium Potassium Chloride Carbon Dioxide Anion Gap BUN Creatinine Estim Creat Clear Calc Estimated GFR POC Glucose Random Glucose Calcium Phosphorus Magnesium Total Bilirubin AST ALT Alkaline Phosphatase Total Protein Albumin Triglycerides 106 Microbiology Microbiology Results: Microbiology 10/22/23 12:04 Blood - Venous Blood Culture - Final No growth after 5 days. 10/22/23 12:04 Blood - Venous Blood Culture - Final No growth after 5 days. 10/21/23 20:24 Blood - Venous Blood Culture - Final No growth after 5 days. 10/21/23 20:24 Blood - Venous Blood Culture - Final No growth after 5 days. Procedures Date of Service Date of Service: 10/29/23 Assessment & Plan Assessment and plan (1) Metabolic acidosis: Status: Acute (2) Acute kidney injury: Status: Acute Plan JIMBO due to tubular injury and obstructive uropathy Serum creatinine better; Acidotic- likely multifactorial Beta hydroxy butrate and lactate levels were elevated Now with respiratory alkalosis Creatinine is not at baseline yet. Urine shows RBCs and protein Ordered serologies C/W rest of current supportive management for now Shall closely follow up Time Spent With Patient Time: Total time managing care of this patient today ____ minutes. Progress Note: Quality Stroke Does the patient have a stroke diagnosis?: No
--- NOTE | 2023-10-29 09:55 | P.PNCC_ITS ---
Subjective Subjective Date of Service: 10/29/23 Interval History: 78-year-old gentleman with underlying COPD, diabetes mellitus, CAD, pulmonary hypertension admitted on 10/22/2023 after wellness check found patient lethargic. On ER evaluation patient with acute renal failure, lactic acidosis, hyperkalemia initially admitted to telemetry requiring initiation of pressor support and transfer to intensive care unit for septic shock with ?skin source. Hospital course complicated by refeeding syndrome. Sundowning, otherwise no events overnight. Critical Care Time (minutes): 60 Physical Exam 2 Vital Signs: Vital Signs: Last Vital Signs Temp 97.5 F 10/29/23 09:00 Pulse 74 10/29/23 09:02 Resp 21 H 10/29/23 09:00 BP 143/59 H 10/29/23 09:02 Pulse Ox 99 10/29/23 09:00 O2 Del Method Room Air 10/29/23 09:00 O2 Flow Rate 2 10/29/23 03:00 BMI result Body Mass Index 24.1 Const: General: no acute distress, awake and confusion O rientation/consciousness: confusion Eyes: Sclerae: sclerae normal EOM: EOMs intact bilaterally Neck: Neck: Yes no lymphadenopathy, Yes trachea midline and Yes supple Resp: Effort & Inspection: normal respiratory effort and no respiratory distress Auscultation: crackles bilateral Cardio: Rate: regular rate Rhythm: regular rhythm Heart sounds: no gallops, no murmurs and no rubs GI: Palpation (GI): Soft to palpation and Other GI palpation findings present ( Nontender) Auscultation: normal bowel sounds Neuro: General: confusion Extrem: General: No clubbing, No cyanosis and Yes edema (1+ bilateral) Objective Data Labs 10/29/23 05:20 10/29/23 05:20 Labs: Laboratory Results - last 24 hr 10/28/23 10/28/23 10/28/23 11:54 17:33 18:17 WBC RBC Hgb Hct MCV MCH MCHC RDW Plt Count MPV Immature Gran % (Auto) Neut % (Auto) Lymph % (Auto) [place] % (Auto) Eos % (Auto) Baso % (Auto) Lymph # (Auto) [place] # (Auto) Eos # (Auto) Baso # (Auto) Abs Immat Gran (auto) Absolute Neuts (auto) Absolute Nucleated RBC Nucleated RBC % (auto) VBG pH VBG pCO2 VBG pO2 VBG HCO3 VBG O2 Saturation VBG Base Excess Sodium 141 Potassium 3.1 L Chloride 87 L Carbon Dioxide 35 H Anion Gap 22 H BUN 60 H Creatinine 2.29 H Estim Creat Clear Calc 27.0 Estimated GFR 28 POC Glucose 280 H 263 H Random Glucose 290 H Calcium 9.4 Phosphorus 2.7 Magnesium 1.7 Total Bilirubin AST ALT Alkaline Phosphatase Total Protein Albumin Triglycerides 10/28/23 10/29/23 10/29/23 23:31 05:19 05:20 WBC 7.3 RBC 3.19 L Hgb 10.3 L Hct 30.2 L MCV 94.7 MCH 32.3 MCHC 34.1 RDW 14.3 Plt Count 53 L D MPV 11.4 Immature Gran % (Auto) 1.4 H Neut % (Auto) 77.2 H Lymph % (Auto) 15.1 L [place] % (Auto) 5.9 Eos % (Auto) 0.3 Baso % (Auto) 0.1 Lymph # (Auto) 1.1 L [place] # (Auto) 0.4 Eos # (Auto) 0.0 Baso # (Auto) 0.0 Abs Immat Gran (auto) 0.10 H Absolute Neuts (auto) 5.7 Absolute Nucleated RBC 0.000 Nucleated RBC % (auto) 0.0 VBG pH 7.65 H* VBG pCO2 45 VBG pO2 57 VBG HCO3 50 H VBG O2 Saturation 91.0 VBG Base Excess 27.1 Sodium 141 Potassium 3.5 Chloride 87 L Carbon Dioxide 37 H Anion Gap 21 H BUN 68 H Creatinine 2.30 H Estim Creat Clear Calc 26.8 Estimated GFR 28 POC Glucose 213 H Random Glucose 264 H Calcium 9.8 Phosphorus 2.6 L Magnesium 1.8 Total Bilirubin 1.5 H AST 36 ALT 71 H Alkaline Phosphatase 70 Total Protein 6.1 L Albumin 4.0 Triglycerides 101 10/29/23 08:10 WBC RBC Hgb Hct MCV MCH MCHC RDW Plt Count MPV Immature Gran % (Auto) Neut % (Auto) Lymph % (Auto) [place] % (Auto) Eos % (Auto) Baso % (Auto) Lymph # (Auto) [place] # (Auto) Eos # (Auto) Baso # (Auto) Abs Immat Gran (auto) Absolute Neuts (auto) Absolute Nucleated RBC Nucleated RBC % (auto) VBG pH VBG pCO2 VBG pO2 VBG HCO3 VBG O2 Saturation VBG Base Excess Sodium Potassium Chloride Carbon Dioxide Anion Gap BUN Creatinine Estim Creat Clear Calc Estimated GFR POC Glucose Random Glucose Calcium Phosphorus Magnesium Total Bilirubin AST ALT Alkaline Phosphatase Total Protein Albumin Triglycerides 106 Microbiology Microbiology Results: Microbiology 10/22/23 12:04 Blood - Venous Blood Culture - Final No growth after 5 days. 10/22/23 12:04 Blood - Venous Blood Culture - Final No growth after 5 days. 10/21/23 20:24 Blood - Venous Blood Culture - Final No growth after 5 days. 10/21/23 20:24 Blood - Venous Blood Culture - Final No growth after 5 days. Progress Note: A&P Assessment and plan (1) Acute encephalopathy: Status: Acute (2) Septic shock: Status: Acute (3) COPD (chronic obstructive pulmonary disease): Status: Acute (4) Acute kidney injury: Status: Acute Plan Assessment: 78-year-old gentleman admitted with failure to thrive, JIMBO, and septic shock Plan: Neuro: No acute issues. Cardiac: Continue to titrate off pressor support as tolerated. Pulmonary: No acute issues. Renal: Acute kidney injury. Non oliguric. Continue to monitor renal indices and urine output. Continue with IV diuresis. Endo: No acute issues. GI: Refeeding syndrome. Continue to replace electrolytes. Continue PPN. ID: Empiric broad-spectrum antibiotic antibiotic coverage. Cultures negative to date. Heme/Onc: No acute issues. Psych: No acute issues. Miscellaneous: No acute issues. Prophylaxis: Heparin Diet: PPN Critical care time spent: 60 minutes Quality Stroke Does the patient have a stroke diagnosis?: No VTE Prior VTE?: No VTE Risk Level:: Medical - moderate - high VTE Device Contraindication: N/A - Device Ordered VTE Drug Contraindication: N/A - Med Ordered
--- NOTE | 2023-10-29 10:04 | MHC.CLN ---
F/U PT WITH INCREASED NUTRITION RISK R/T PRESSURE INJURY, POOR PO, AND RE-FEEDING CURRENTLY NPO-FAILED MULTIPLE SWALLOW EVALS PT CONTINUES ON PPN-REVIEWED LABS- NOTED TRIGS WNL DISCUSSED WITH PHARM RECOMMEND PPN INCREASE TO 100ML/HR TO PROVIDE 1224KCALS, 240G DEXTROSE, 102G PROTEIN REPLETE LYTES NEEDED HOLD LIPIDS TODAY
[2023-10-29] MEDS: fentaNYL citrate/PF 100 MCG/2 ML VIAL 25 MCG IVPUSH (10:29)
[2023-10-29 12:20] LABS: Glucose, Whole Blood 224 mg/dL (60-115)
[2023-10-29] MEDS: Potassium Phosphate/NS 15 MMOL/250 ML PLAST..BAG 62.5 MMOL IV (12:45)
[2023-10-29] MEDS: fentaNYL citrate/PF 100 MCG/2 ML VIAL 50 MCG IVPUSH ×2 (13:05→16:20)
[2023-10-29 13:56] LABS: Appearance Urine Cloudy; Color Urine Yellow; Glucose Urine UA Negative (Negative); Leukocyte Esterase Urine Small (1+) (Negative); Nitrite Urine Negative (Negative); Specific Gravity - Urine 1.015 (1.005-1.025); UMIC TRIGGER UA YES; Urine Blood Small (1+) (Negative); Urine Ketones Negative (Negative); Urine Protein 30 (1+) mg/dL (Neg-Trace)
[2023-10-29 14:10] LABS: Bacteria Urine None Seen (None Seen); Squamous Epithelial Cell Urine 0-2 /HPF (0-2)
[2023-10-29 15:02] LABS: Creatinine Urine 37.43 mg/dL; Total Protein Urine Random 36 mg/dL (<12)
[2023-10-29 17:01] LABS: OBS Int Ctl Valid YES; OBS1 POSITIVE (NEGATIVE)
--- NOTE | 2023-10-29 18:00 | P.PICC_ITS ---
PICC Line Insertion NPICC LATE ENTRY Diagnosis: ARF, failure to thrive Indication: tpn Pertinent Labs: Reviewed] Technique: Following informed consent including risks, benefits and alternatives and using sterile technique including cap and mask, sterile gown, glove and drape, the right arm was prepped and draped in the usual sterile fashion of full barrier technique with G. Following completion of [place] Protocol the skin and soft tissues were anesthetized with 1% Lidocaine plain. Using ultrasound guidance, right basilic vein access was obtained. Over an 0.018 wire through peel-away sheath, a BARD 5fr triple lumen Power PICC line was positioned. Catheter length is 41cm internal length, 0cm external length, for a total trimmed length of 41cm. The procedure was performed in ICU. Tip verification was performed by Krish Bermudez with Azeb 3CG. Tip located in SVC. Ultrasound was used to document vein patency and for needle entry. A formal ultrasound picture and cardiac rhythm strip was recorded. Vascular Associate Justice has released the line for use and it is currently dressed with a StatLock, Tegaderm, and CHG disc. Verification has been performed for blood return and line patency. Arm Circumference: Equipment: [place] POWERPICC PASV triple lumen Catheter Type: 5fr triple lumen PASV catheter Lot #: [id number]
[2023-10-29 18:20] LABS: Glucose, Whole Blood 91 mg/dL (60-115)
[2023-10-29] MEDS: Norepinephrine Bitartrate/D5W 8 MG/250 ML PLAST..BAG 7.49 MG IV (18:54)
--- NOTE | 2023-10-29 20:26 | PC.NURSE ---
Assumed care of patient at 19:00. SYLE triple lumen PICC recently placed during evening on day shift; CXR obtained after placement, awaiting formal interpretation and confirmation of placement and DRY HEAT CABINET ATTENDANT okay to use until then. Pt only has one single lumen peripheral IV with levophed and vasostrict infusing through it to maintain MAP per MAR parameters. Once cleared, will resume PPN via PICC. Labs reviewed from today, OBS noted to be positive. These assessments were discussed with covering DRY HEAT CABINET ATTENDANT Oly Rowley; orders for pepcid IV. Plan of care continues.
[2023-10-29] MEDS: Parenteral Nutrition 2,400 ML 100 ML IV (21:16)
[2023-10-29 23:26] LABS: Glucose, Whole Blood 259 mg/dL (60-115)
[2023-10-30] VITALS (36 sets, daily range): BP systolic 88–152; BP diastolic 43–80; PULSE 61–93; RESP 10–70; TEMP 36.2–37.2; O2SAT 90–99; BMI 24.0
[2023-10-30] MEDS: Piperacillin Sodium/Tazobactam 2.25 GM in 0.9 % Sodium Chloride 50 ML IV ×3 (02:08→17:47)
[2023-10-30 05:55] LABS: Basophils Percent Auto 0.1 % (0-2); Imm Gran Abs Auto 0.12 X10*3/uL (0.00-0.03); Imm Gran Pct Auto 1.1 % (0.0-0.4); Mean Platelet Volume 11.3 fL (9.4-12.4); NRBC Pct Auto 0.2 /100WBC (0.0-0.2); Red Cell Distribution Width 14.4 % (11.0-16.0)
[2023-10-30 05:57] LABS: Eosinophils Absolute Auto 0.1 X10*3/uL (0.0-0.4); Eosinophils Percent Auto 0.5 % (0-4); Hematocrit 30.7 % (42.0-52.0); Hemoglobin 10.5 g/dl (14.0-18.0); Lymphocytes Absolute Auto 1.4 X10*3/uL (1.2-4.9); Lymphocytes Percent Auto 13.3 % (20-40); Mean Corpuscular HGB Conc 34.2 g/dl (31.0-36.0); Mean Corpuscular Hemoglobin 32.8 pg (27.0-33.0); Mean Corpuscular Volume 95.9 fL (80.0-98.0); Monocytes Absolute Auto 0.8 X10*3/uL (0.1-1.2); Monocytes Percent Auto 7.7 % (2-11); Neutrophils Absolute Auto 8.3 x10*3/uL (2.0-8.3); Neutrophils Percent Auto 77.3 % (45-73)
[2023-10-30 05:58] LABS: VBG Base Excess 26.7 mmol/L; VBG HCO3 50 mmol/L (22-26); VBG pCO2 47 mmHg; VBG pH 7.63 (7.32-7.43); VBG pO2 45 mmHg
[2023-10-30 05:59] LABS: Platelet Count 74 X10*3/uL (160-400); White Blood Count 10.7 X10*3/uL (4.8-10.8)
[2023-10-30 06:17] LABS: Alanine Aminotransferase 54 U/L (0-40); Albumin Level 3.8 g/dL (3.5-5.0); Alkaline Phosphatase 79 U/L (39-117); Anion Gap 20 (12-20); Aspartate Amino Transferase 23 U/L (5-37); Bilirubin Total 1.2 mg/dL (0.0-1.0); Blood Urea Nitrogen 71 mg/dL (9-16); Calcium 9.9 mg/dL (8.4-10.2); Carbon Dioxide 38 mmol/L (22-29); Chloride 88 mmol/L (96-108); Creatinine Clr Calc Pharmacy 32.2; Estimated Glomerular Filt Rate 34; Glucose Random 250 mg/dL (60-115); Magnesium 1.8 mg/dL (1.6-2.6); Phosphorus 3.9 mg/dL (2.7-4.5); Potassium 3.9 mmol/L (3.3-5.1); Sodium 142 mmol/L (135-145); Total Protein 6.3 g/dL (6.5-8.0)
[2023-10-30] MEDS: Vasopressin 20 UNIT/100 ML INFUS..BTL 12 UNIT IVCONT ×2 (06:26→12:31)
[2023-10-30] MEDS: Insulin Lispro 100 UNIT/ML 3 ML VIAL SUBCUT ×3 (06:33→17:50)
[2023-10-30 07:31] LABS: Venous Blood Gas Refer to POC result
[2023-10-30 08:18] LABS: Triglycerides 104 mg/dL (<150)
[2023-10-30] MEDS: Nystatin Powder 15 GM BOTTLE 1 APPL TOPICAL ×2 (08:33→21:13)
[2023-10-30] MEDS: Famotidine/PF 20 MG/2 ML VIAL IVPUSH (08:33)
[2023-10-30] MEDS: 0.9 % Sodium Chloride Flush 3 ML SYRINGE IVFLUSH ×2 (08:36→21:12)
--- NOTE | 2023-10-30 10:58 | MHC.CLN ---
F/U DISCUSSED CASE WITH MD AT ROUNDS REVIEWED LABS DISCUSSED WITH PHARM RECOMMEND SWITCH TO TPN-PT NOW WITH PICC LINE PLACED RECOMMEND TPN AT 100ML/HR WITH 35G LIPIDS TO PROVIDE 2054KCALS (25KCALS/KG), 360G DEXTROSE, 120G PROTEIN (1.4G/KG) REPLETE LYTES NEEDED
[2023-10-30 11:52] LABS: Glucose, Whole Blood 254 mg/dL (60-115)
--- NOTE | 2023-10-30 11:52 | PM.CCPN ---
Subjective Subjective Date of Service: 10/30/23 Interval History: 78-year-old gentleman with underlying COPD, diabetes mellitus, CAD, pulmonary hypertension admitted on 10/22/2023 after wellness check found patient lethargic. On ER evaluation patient with acute renal failure, lactic acidosis, hyperkalemia initially admitted to telemetry requiring initiation of pressor support and transfer to intensive care unit for septic shock with ?skin source. Hospital course complicated by refeeding syndrome. Sundowning, otherwise no events overnight. Renal function is improving. Critical Care Time (minutes): 60 Physical Exam Vital Signs: Vital Signs: Last Vital Signs Temp 97.6 F 10/30/23 08:00 Pulse 73 10/30/23 11:00 Resp 18 10/30/23 11:00 BP 139/62 10/30/23 11:00 Pulse Ox 94 10/30/23 11:00 O2 Del Method Room Air 10/30/23 11:00 O2 Flow Rate 2 10/29/23 03:00 BMI result Body Mass Index 24.0 Const: General: no acute distress, awake and confusion Orientation/consciousness: confusion Eyes: Sclerae: sclerae normal EOM: EOMs intact bilaterally Neck: Neck: Yes no lymphadenopathy, Yes trachea midline and Yes supple Resp: Effort & Inspection: normal respiratory effort and no respiratory distress Auscultation: clear to auscultation bilaterally Cardio: Rate: regular rate Rhythm: regular rhythm Heart sounds: no gallops, no murmurs and no rubs GI: Palpation (GI): Soft to palpation and Other GI palpation findings present ( Nontender) Auscultation: normal bowel sounds Neuro: General: confusion Extrem: General: No clubbing, No cyanosis and Yes edema (1+ bilateral) Objective Data Labs 10/30/23 05:20 10/30/23 05:20 Labs: Laboratory Results - last 24 hr 10/29/23 10/29/23 10/29/23 12:17 13:34 16:12 WBC RBC Hgb Hct MCV MCH MCHC RDW Plt Count MPV Immature Gran % (Auto) Neut % (Auto) Lymph % (Auto) [place] % (Auto) Eos % (Auto) Baso % (Auto) Lymph # (Auto) [place] # (Auto) Eos # (Auto) Baso # (Auto) Abs Immat Gran (auto) Absolute Neuts (auto) Absolute Nucleated RBC Nucleated RBC % (auto) VBG pH VBG pCO2 VBG pO2 VBG HCO3 VBG O2 Saturation VBG Base Excess Sodium Potassium Chloride Carbon Dioxide Anion Gap BUN Creatinine Estim Creat Clear Calc Estimated GFR POC Glucose 224 H Random Glucose Calcium Phosphorus Magnesium Total Bilirubin AST ALT Alkaline Phosphatase Total Protein Albumin Triglycerides Urine Color Yellow Urine Appearance Cloudy Urine pH 5.0 Ur Specific [place] 1.015 Urine Protein 30 (1+) H Urine Glucose (UA) Negative Urine Ketones Negative Urine Blood Small (1+) H Urine Nitrite Negative Ur Leukocyte Esterase Small (1+) H Urine RBC 3-5 H Urine WBC 6-10 Ur Squamous Epith Cells 0-2 Urine Bacteria None Seen Hyaline Casts 6-10 Urine Yeast Present U Random Total Protein 36 H Urine Creatinine 37.43 Stool Occult Blood POSITIVE 10/29/23 10/29/23 10/30/23 17:55 23:20 05:20 WBC 10.7 RBC 3.20 L Hgb 10.5 L Hct 30.7 L MCV 95.9 MCH 32.8 MCHC 34.2 RDW 14.4 Plt Count 74 L D MPV 11.3 Immature Gran % (Auto) 1.1 H Neut % (Auto) 77.3 H Lymph % (Auto) 13.3 L [place] % (Auto) 7.7 Eos % (Auto) 0.5 Baso % (Auto) 0.1 Lymph # (Auto) 1.4 [place] # (Auto) 0.8 Eos # (Auto) 0.1 Baso # (Auto) 0.0 Abs Immat Gran (auto) 0.12 H Absolute Neuts (auto) 8.3 Absolute Nucleated RBC 0.020 H Nucleated RBC % (auto) 0.2 VBG pH VBG pCO2 VBG pO2 VBG HCO3 VBG O2 Saturation VBG Base Excess Sodium 142 Potassium 3.9 Chloride 88 L Carbon Dioxide 38 H Anion Gap 20 BUN 71 H Creatinine 1.92 H Estim Creat Clear Calc 32.2 Estimated GFR 34 POC Glucose 91 259 H Random Glucose 250 H Calcium 9.9 Phosphorus 3.9 Magnesium 1.8 Total Bilirubin 1.2 H AST 23 ALT 54 H Alkaline Phosphatase 79 Total Protein 6.3 L Albumin 3.8 Triglycerides Urine Color Urine Appearance Urine pH Ur Specific [place] Urine Protein Urine Glucose (UA) Urine Ketones Urine Blood Urine Nitrite Ur Leukocyte Esterase Urine RBC Urine WBC Ur Squamous Epith Cells Urine Bacteria Hyaline Casts Urine Yeast U Random Total Protein Urine Creatinine Stool Occult Blood 10/30/23 10/30/23 10/30/23 05:49 07:49 11:49 WBC RBC Hgb Hct MCV MCH MCHC RDW Plt Count MPV Immature Gran % (Auto) Neut % (Auto) Lymph % (Auto) [place] % (Auto) Eos % (Auto) Baso % (Auto) Lymph # (Auto) [place] # (Auto) Eos # (Auto) Baso # (Auto) Abs Immat Gran (auto) Absolute Neuts (auto) Absolute Nucleated RBC Nucleated RBC % (auto) VBG pH 7.63 H* VBG pCO2 47 VBG pO2 45 VBG HCO3 50 H VBG O2 Saturation 78.0 VBG Base Excess 26.7 Sodium Potassium Chloride Carbon Dioxide Anion Gap BUN Creatinine Estim Creat Clear Calc Estimated GFR POC Glucose 254 H Random Glucose Calcium Phosphorus Magnesium Total Bilirubin AST ALT Alkaline Phosphatase Total Protein Albumin Triglycerides 104 Urine Color Urine Appearance Urine pH Ur Specific [place] Urine Protein Urine Glucose (UA) Urine Ketones Urine Blood Urine Nitrite Ur Leukocyte Esterase Urine RBC Urine WBC Ur Squamous Epith Cells Urine Bacteria Hyaline Casts Urine Yeast U Random Total Protein Urine Creatinine Stool Occult Blood Microbiology Microbiology Results: Microbiology 10/22/23 12:04 Blood - Venous Blood Culture - Final No growth after 5 days. 10/22/23 12:04 Blood - Venous Blood Culture - Final No growth after 5 days. 10/21/23 20:24 Blood - Venous Blood Culture - Final No growth after 5 days. 10/21/23 20:24 Blood - Venous Blood Culture - Final No growth after 5 days. Progress Note: A&P Assessment and plan (1) Acute encephalopathy: Status: Acute (2) Septic shock: Status: Acute (3) Acute kidney injury: Status: Acute (4) Cellulitis: Status: Acute (5) CAD (coronary artery disease): Status: Acute Plan Assessment: 78-year-old gentleman admitted with failure to thrive, JIMBO, and septic shock Plan: Neuro: No acute issues. Cardiac: Continue to titrate off pressor support as tolerated. Pulmonary: No acute issues. Renal: Acute kidney injury, improving. Non oliguric. Continue to monitor renal indices and urine output. Endo: No acute issues. GI: Refeeding syndrome. Continue to replace electrolytes. Continue PPN. ID: Skin/soft tissue source. Empiric broad-spectrum antibiotic antibiotic coverage. Cultures negative to date. Heme/Onc: No acute issues. Psych: No acute issues. Miscellaneous: No acute issues. Prophylaxis: Heparin Diet: TPN Critical care time spent: 60 minutes Quality Stroke Does the patient have a stroke diagnosis?: No VTE Prior VTE?: No VTE Risk Level:: Medical - moderate - high VTE Device Contraindication: N/A - Device Ordered VTE Drug Contraindication: N/A - Med Ordered
--- NOTE | 2023-10-30 14:48 | MHC.CM.PN ---
PT REMAINS IN ICU. PER MD ROUNDS, PT WILL BE CHANGED FROM PPN TO TPN. CM WILL CONTINUE TO FOLLOW FOR DC PLAN.
--- NOTE | 2023-10-30 15:31 | P.PNNP_ITS ---
Subjective Subjective Date of Service: 10/30/23 Interval history: No events overnight. Renal function improving. Physical Exam 2 Vital Signs: Vital Signs: Last Vital Signs Temp 97.7 F 10/30/23 11:53 Pulse 77 10/30/23 15:00 Resp 17 10/30/23 15:00 BP 111/43 L 10/30/23 15:00 Pulse Ox 97 10/30/23 15:00 O2 Del Method Room Air 10/30/23 15:00 O2 Flow Rate 2 10/29/23 03:00 BMI result Body Mass Index 24.0 Const: General: no acute distress Neck: Neck: Yes supple Resp: Auscultation: diminished lung sounds Cardio: Rate: regular rate GI: Palpation (GI): Soft to palpation Neuro: General: moves all extremities Objective Data Labs 10/30/23 05:20 10/30/23 05:20 Labs: Laboratory Results - last 24 hr 10/29/23 10/29/23 10/29/23 16:12 17:55 23:20 WBC RBC Hgb Hct MCV MCH MCHC RDW Plt Count MPV Immature Gran % (Auto) Neut % (Auto) Lymph % (Auto) [place] % (Auto) Eos % (Auto) Baso % (Auto) Lymph # (Auto) [place] # (Auto) Eos # (Auto) Baso # (Auto) Abs Immat Gran (auto) Absolute Neuts (auto) Absolute Nucleated RBC Nucleated RBC % (auto) VBG pH VBG pCO2 VBG pO2 VBG HCO3 VBG O2 Saturation VBG Base Excess Sodium Potassium Chloride Carbon Dioxide Anion Gap BUN Creatinine Estim Creat Clear Calc Estimated GFR POC Glucose 91 259 H Random Glucose Calcium Phosphorus Magnesium Total Bilirubin AST ALT Alkaline Phosphatase Total Protein Albumin Triglycerides Stool Occult Blood POSITIVE 10/30/23 10/30/23 10/30/23 05:20 05:49 07:49 WBC 10.7 RBC 3.20 L Hgb 10.5 L Hct 30.7 L MCV 95.9 MCH 32.8 MCHC 34.2 RDW 14.4 Plt Count 74 L D MPV 11.3 Immature Gran % (Auto) 1.1 H Neut % (Auto) 77.3 H Lymph % (Auto) 13.3 L [place] % (Auto) 7.7 Eos % (Auto) 0.5 Baso % (Auto) 0.1 Lymph # (Auto) 1.4 [place] # (Auto) 0.8 Eos # (Auto) 0.1 Baso # (Auto) 0.0 Abs Immat Gran (auto) 0.12 H Absolute Neuts (auto) 8.3 Absolute Nucleated RBC 0.020 H Nucleated RBC % (auto) 0.2 VBG pH 7.63 H* VBG pCO2 47 VBG pO2 45 VBG HCO3 50 H VBG O2 Saturation 78.0 VBG Base Excess 26.7 Sodium 142 Potassium 3.9 Chloride 88 L Carbon Dioxide 38 H Anion Gap 20 BUN 71 H Creatinine 1.92 H Estim Creat Clear Calc 32.2 Estimated GFR 34 POC Glucose Random Glucose 250 H Calcium 9.9 Phosphorus 3.9 Magnesium 1.8 Total Bilirubin 1.2 H AST 23 ALT 54 H Alkaline Phosphatase 79 Total Protein 6.3 L Albumin 3.8 Triglycerides 104 Stool Occult Blood 10/30/23 11:49 WBC RBC Hgb Hct MCV MCH MCHC RDW Plt Count MPV Immature Gran % (Auto) Neut % (Auto) Lymph % (Auto) [place] % (Auto) Eos % (Auto) Baso % (Auto) Lymph # (Auto) [place] # (Auto) Eos # (Auto) Baso # (Auto) Abs Immat Gran (auto) Absolute Neuts (auto) Absolute Nucleated RBC Nucleated RBC % (auto) VBG pH VBG pCO2 VBG pO2 VBG HCO3 VBG O2 Saturation VBG Base Excess Sodium Potassium Chloride Carbon Dioxide Anion Gap BUN Creatinine Estim Creat Clear Calc Estimated GFR POC Glucose 254 H Random Glucose Calcium Phosphorus Magnesium Total Bilirubin AST ALT Alkaline Phosphatase Total Protein Albumin Triglycerides Stool Occult Blood Microbiology Microbiology Results: Microbiology 10/22/23 12:04 Blood - Venous Blood Culture - Final No growth after 5 days. 10/22/23 12:04 Blood - Venous Blood Culture - Final No growth after 5 days. 10/21/23 20:24 Blood - Venous Blood Culture - Final No growth after 5 days. 10/21/23 20:24 Blood - Venous Blood Culture - Final No growth after 5 days. Procedures Date of Service Date of Service: 10/30/23 Assessment & Plan Assessment and plan (1) Acute kidney injury: Status: Acute Plan JIMBO due to tubular injury and obstructive uropathy Serum creatinine was worse due to shock- improving C/W rest of current supportive management for now Labs AM; Shall closely follow up Progress Note: Quality Stroke Does the patient have a stroke diagnosis?: No
[2023-10-30 18:13] LABS: Glucose, Whole Blood 228 mg/dL (60-115)
[2023-10-30] MEDS: Parenteral Nutrition 2,400 ML 100 ML IV (21:11)
[2023-10-30] MEDS: Vasopressin 20 UNIT/100 ML INFUS..BTL 6 UNIT IVCONT (22:14)
[2023-10-30 23:55] LABS: Glucose, Whole Blood 232 mg/dL (60-115)
[2023-10-31] VITALS (32 sets, daily range): BP systolic 84–118; BP diastolic 32–61; PULSE 62–89; RESP 15–30; TEMP 36.6–37.2; O2SAT 91–99; BMI 24.0
[2023-10-31] MEDS: Insulin Lispro 100 UNIT/ML 3 ML VIAL SUBCUT ×4 (00:13→19:12)
[2023-10-31] MEDS: Piperacillin Sodium/Tazobactam 2.25 GM in 0.9 % Sodium Chloride 50 ML IV ×3 (02:28→19:18)
[2023-10-31 05:30] LABS: VBG Base Excess 25.1 mmol/L; VBG HCO3 49 mmol/L (22-26); VBG pCO2 47 mmHg; VBG pH 7.62 (7.32-7.43); VBG pO2 40 mmHg
[2023-10-31] MEDS: fentaNYL citrate/PF 100 MCG/2 ML VIAL 50 MCG IVPUSH (05:41)
[2023-10-31 05:43] LABS: Eosinophils Absolute Auto 0.1 X10*3/uL (0.0-0.4); Eosinophils Percent Auto 1.2 % (0-4); Mean Corpuscular Hemoglobin 32.3 pg (27.0-33.0); PLT CLUMP 1; Red Cell Distribution Width 14.9 % (11.0-16.0); SCAN SMEAR FLAG 1
[2023-10-31 05:45] LABS: Basophils Percent Auto 0.2 % (0-2); Hematocrit 30.4 % (42.0-52.0); Imm Gran Abs Auto 0.07 X10*3/uL (0.00-0.03); Imm Gran Pct Auto 0.7 % (0.0-0.4); Lymphocytes Absolute Auto 1.5 X10*3/uL (1.2-4.9); Lymphocytes Percent Auto 13.7 % (20-40); MANUAL DIFF FLAG SCAN; Mean Corpuscular HGB Conc 32.9 g/dl (31.0-36.0); Mean Corpuscular Volume 98.1 fL (80.0-98.0); Mean Platelet Volume 11.5 fL (9.4-12.4); Monocytes Absolute Auto 0.6 X10*3/uL (0.1-1.2); Monocytes Percent Auto 5.4 % (2-11); Neutrophils Absolute Auto 8.4 x10*3/uL (2.0-8.3); Neutrophils Percent Auto 78.8 % (45-73)
[2023-10-31 05:48] LABS: Venous Blood Gas Refer to POC result
[2023-10-31 05:49] LABS: Platelet Count 82 X10*3/uL (160-400); White Blood Count 10.7 X10*3/uL (4.8-10.8)
[2023-10-31 05:54] LABS: SLIDE REVIEW VERIFIED
[2023-10-31 05:57] LABS: Albumin Level 3.4 g/dL (3.5-5.0); Anion Gap 19 (12-20); Blood Urea Nitrogen 77 mg/dL (9-16); Calcium 10.2 mg/dL (8.4-10.2); Carbon Dioxide 38 mmol/L (22-29); Chloride 93 mmol/L (96-108); Creatinine Clr Calc Pharmacy 36.8; Estimated Glomerular Filt Rate 40; Glucose Random 248 mg/dL (60-115); Magnesium 1.9 mg/dL (1.6-2.6); Phosphorus 3.9 mg/dL (2.7-4.5); Potassium 4.5 mmol/L (3.3-5.1); Sodium 145 mmol/L (135-145)
[2023-10-31] MEDS: Vasopressin 20 UNIT/100 ML INFUS..BTL 12 UNIT IVCONT ×3 (05:58→21:38)
[2023-10-31 06:00] LABS: Glucose, Whole Blood 273 mg/dL (60-115)
[2023-10-31] MEDS: 0.9 % Sodium Chloride Flush 3 ML SYRINGE IVFLUSH ×3 (08:00→21:33)
[2023-10-31] MEDS: Famotidine/PF 20 MG/2 ML VIAL IVPUSH (08:01)
[2023-10-31] MEDS: Nystatin Powder 15 GM BOTTLE 1 APPL TOPICAL (08:07)
--- NOTE | 2023-10-31 09:25 | P.PNCC_ITS ---
Subjective Subjective Date of Service: 10/31/23 Interval History: 78-year-old gentleman with underlying COPD, diabetes mellitus, CAD, pulmonary hypertension admitted on 10/22/2023 after wellness check found patient lethargic. On ER evaluation patient with acute renal failure, lactic acidosis, hyperkalemia initially admitted to telemetry requiring initiation of pressor support and transfer to intensive care unit for septic shock with ?skin source. Hospital course complicated by refeeding syndrome. No events overnight. Remains significantly encephalopathic. Critical Care Time (minutes): 45 Physical Exam 2 Vital Signs: Vital Signs: Last Vital Signs Temp 98.9 F 10/31/23 08:00 Pulse 78 10/31/23 09:00 Resp 15 10/31/23 09:00 BP 114/45 L 10/31/23 09:00 Pulse Ox 97 10/31/23 09:00 O2 Del Method Room Air 10/31/23 09:00 O2 Flow Rate 2 10/29/23 03:00 BMI result Body Mass Index 24.0 Const: General: no acute distress and lethargic Orientation/consciousness: lethargic Eyes: Sclerae: sclerae normal EOM: EOMs intact bilaterally Neck: Neck: Yes no lymphadenopathy, Yes trachea midline and Yes supple Resp: Effort & Inspection: normal respiratory effort and no respiratory distress Auscultation: clear to auscultation bilaterally Cardio: Rate: regular rate Rhythm: regular rhythm Heart sounds: no gallops, no murmurs and no rubs GI: Palpation (GI): Soft to palpation and Other GI palpation findings present ( Nontender) Auscultation: normal bowel sounds Extrem: General: No clubbing, No cyanosis and Yes edema (1+ bilateral) Objective Data Labs 10/31/23 05:09 10/31/23 05:15 Labs: Laboratory Results - last 24 hr 10/30/23 10/30/23 10/30/23 11:49 17:35 23:51 WBC RBC Hgb Hct MCV MCH MCHC RDW Plt Count MPV Immature Gran % (Auto) Neut % (Auto) Lymph % (Auto) [place] % (Auto) Eos % (Auto) Baso % (Auto) Lymph # (Auto) [place] # (Auto) Eos # (Auto) Baso # (Auto) Abs Immat Gran (auto) Absolute Neuts (auto) Absolute Nucleated RBC Nucleated RBC % (auto) Smear Tech's Comments VBG pH VBG pCO2 VBG pO2 VBG HCO3 VBG O2 Saturation VBG Base Excess Sodium Potassium Chloride Carbon Dioxide Anion Gap BUN Creatinine Estim Creat Clear Calc Estimated GFR POC Glucose 254 H 228 H 232 H Random Glucose Calcium Phosphorus Magnesium Albumin 10/31/23 10/31/23 10/31/23 05:09 05:15 05:21 WBC 10.7 RBC 3.10 L Hgb 10.0 L Hct 30.4 L MCV 98.1 H MCH 32.3 MCHC 32.9 RDW 14.9 Plt Count 82 L MPV 11.5 Immature Gran % (Auto) 0.7 H Neut % (Auto) 78.8 H Lymph % (Auto) 13.7 L [place] % (Auto) 5.4 Eos % (Auto) 1.2 Baso % (Auto) 0.2 Lymph # (Auto) 1.5 [place] # (Auto) 0.6 Eos # (Auto) 0.1 Baso # (Auto) 0.0 Abs Immat Gran (auto) 0.07 H Absolute Neuts (auto) 8.4 H Absolute Nucleated RBC 0.000 Nucleated RBC % (auto) 0.0 Smear Tech's Comments VERIFIED VBG pH 7.62 H* VBG pCO2 47 VBG pO2 40 VBG HCO3 49 H VBG O2 Saturation 68.0 VBG Base Excess 25.1 Sodium 145 Potassium 4.5 Chloride 93 L Carbon Dioxide 38 H Anion Gap 19 BUN 77 H Creatinine 1.68 H Estim Creat Clear Calc 36.8 Estimated GFR 40 POC Glucose Random Glucose 248 H Calcium 10.2 Phosphorus 3.9 Magnesium 1.9 Albumin 3.4 L 10/31/23 05:52 WBC RBC Hgb Hct MCV MCH MCHC RDW Plt Count MPV Immature Gran % (Auto) Neut % (Auto) Lymph % (Auto) [place] % (Auto) Eos % (Auto) Baso % (Auto) Lymph # (Auto) [place] # (Auto) Eos # (Auto) Baso # (Auto) Abs Immat Gran (auto) Absolute Neuts (auto) Absolute Nucleated RBC Nucleated RBC % (auto) Smear Tech's Comments VBG pH VBG pCO2 VBG pO2 VBG HCO3 VBG O2 Saturation VBG Base Excess Sodium Potassium Chloride Carbon Dioxide Anion Gap BUN Creatinine Estim Creat Clear Calc Estimated GFR POC Glucose 273 H Random Glucose Calcium Phosphorus Magnesium Albumin Microbiology Microbiology Results: Microbiology 10/22/23 12:04 Blood - Venous Blood Culture - Final No growth after 5 days. 10/22/23 12:04 Blood - Venous Blood Culture - Final No growth after 5 days. 10/21/23 20:24 Blood - Venous Blood Culture - Final No growth after 5 days. 10/21/23 20:24 Blood - Venous Blood Culture - Final No growth after 5 days. Progress Note: A&P Assessment and plan (1) Acute encephalopathy: Status: Acute (2) Hypotension: Status: Acute (3) Stasis edema with ulcer of left lower extremity: Status: Acute (4) COPD (chronic obstructive pulmonary disease): Status: Acute (5) Acute kidney injury: Status: Acute (6) Failure to thrive in adult: Status: Acute (7) Type 2 diabetes mellitus with diabetic neuropathy, unspecified: Status: Acute Plan Assessment: 78-year-old gentleman admitted with failure to thrive, JIMBO, and septic shock Plan: Neuro: Slowly worsening encephalopathy. Cardiac: Continue to titrate off pressor support as tolerated. Pulmonary: No acute issues. Renal: Acute kidney injury, improving. Non oliguric. Continue to monitor renal indices and urine output. Endo: No acute issues. GI: Refeeding syndrome. Continue to replace electrolytes. Continue TPN. ID: Skin/soft tissue source. Empiric broad-spectrum antibiotic antibiotic coverage. Cultures negative to date. Heme/Onc: No acute issues. Psych: No acute issues. Miscellaneous: Family/HCP is considering goals of care Prophylaxis: Heparin Diet: TPN Critical care time spent: 45 minutes Quality Stroke Does the patient have a stroke diagnosis?: No VTE Prior VTE?: No VTE Risk Level:: Medical - moderate - high VTE Device Contraindication: N/A - Device Ordered VTE Drug Contraindication: N/A - Med Ordered
--- NOTE | 2023-10-31 11:16 | MHC.CLN ---
F/U DISCUSSED CASE WITH MD AT ROUNDS PLAN FOR PT TO FINISH CURRENT BAG OF TPN RUNNING AT 100ML/HR WITH 35G LIPIDS PROVIDING 2054KCALS (25KCALS/KG), 360G DEXTROSE, 120G PROTEIN (1.4G/KG) PT TO THEN TRANSITION TO COMFORT MEASURES TPN WILL NOT BE ORDERED FOR THIS EVENING-PHARM AWARE WILL FOLLOW WITH TEAM AND PROVIDE SUPPORT NEEDED
[2023-10-31 11:45] LABS: Glucose, Whole Blood 218 mg/dL (60-115)
--- NOTE | 2023-10-31 11:54 | MHC.CM.PN ---
Per discussion w/MD at rounds, pt's HCP Miguel Ángel and pt's son Colby are leaning towards a comfort approach to care as pt is not making significant clinical gains and has been failing at home. MD to speak with both later today. Pt has been referred to [facility] for placement in the interim. CM to follow
[2023-10-31] MEDS: fentaNYL 50 MCG PATCH.TD72 TRANSDERMA (14:20)
[2023-10-31 14:44] LABS: Complement C3 52 mg/dL (82-185)
[2023-10-31 18:41] LABS: Glucose, Whole Blood 303 mg/dL (60-115)
--- NOTE | 2023-10-31 19:08 | P.PNNP_ITS ---
Subjective Subjective Date of Service: 10/31/23 Interval history: No events overnight. Renal functions improving; Remains significantly encephalopathic. Physical Exam 2 Vital Signs: Vital Signs: Last Vital Signs Temp 98 F 10/31/23 17:00 Pulse 72 10/31/23 18:00 Resp 24 H 10/31/23 18:00 BP 112/43 L 10/31/23 18:00 Pulse Ox 95 10/31/23 18:00 O2 Del Method Room Air 10/31/23 18:00 O2 Flow Rate 2 10/29/23 03:00 BMI result Body Mass Index 24.0 Const: General: no acute distress Neck: Neck: Yes supple Resp: Auscultation: diminished lung sounds Cardio: Rate: regular rate GI: Palpation (GI): Soft to palpation Neuro: General: moves all extremities Objective Data Labs 10/31/23 05:09 10/31/23 05:15 Labs: Laboratory Results - last 24 hr 10/30/23 10/30/23 10/31/23 05:20 23:51 05:09 WBC 10.7 RBC 3.10 L Hgb 10.0 L Hct 30.4 L MCV 98.1 H MCH 32.3 MCHC 32.9 RDW 14.9 Plt Count 82 L MPV 11.5 Immature Gran % (Auto) 0.7 H Neut % (Auto) 78.8 H Lymph % (Auto) 13.7 L [place] % (Auto) 5.4 Eos % (Auto) 1.2 Baso % (Auto) 0.2 Lymph # (Auto) 1.5 [place] # (Auto) 0.6 Eos # (Auto) 0.1 Baso # (Auto) 0.0 Abs Immat Gran (auto) 0.07 H Absolute Neuts (auto) 8.4 H Absolute Nucleated RBC 0.000 Nucleated RBC % (auto) 0.0 Smear Tech's Comments VERIFIED VBG pH VBG pCO2 VBG pO2 VBG HCO3 VBG O2 Saturation VBG Base Excess Sodium Potassium Chloride Carbon Dioxide Anion Gap BUN Creatinine Estim Creat Clear Calc Estimated GFR POC Glucose 232 H Random Glucose Calcium Phosphorus Magnesium Albumin Complement C3 52 L Complement C4 20 10/31/23 10/31/23 10/31/23 05:15 05:21 05:52 WBC RBC Hgb Hct MCV MCH MCHC RDW Plt Count MPV Immature Gran % (Auto) Neut % (Auto) Lymph % (Auto) [place] % (Auto) Eos % (Auto) Baso % (Auto) Lymph # (Auto) [place] # (Auto) Eos # (Auto) Baso # (Auto) Abs Immat Gran (auto) Absolute Neuts (auto) Absolute Nucleated RBC Nucleated RBC % (auto) Smear Tech's Comments VBG pH 7.62 H* VBG pCO2 47 VBG pO2 40 VBG HCO3 49 H VBG O2 Saturation 68.0 VBG Base Excess 25.1 Sodium 145 Potassium 4.5 Chloride 93 L Carbon Dioxide 38 H Anion Gap 19 BUN 77 H Creatinine 1.68 H Estim Creat Clear Calc 36.8 Estimated GFR 40 POC Glucose 273 H Random Glucose 248 H Calcium 10.2 Phosphorus 3.9 Magnesium 1.9 Albumin 3.4 L Complement C3 Complement C4 10/31/23 10/31/23 11:40 18:37 WBC RBC Hgb Hct MCV MCH MCHC RDW Plt Count MPV Immature Gran % (Auto) Neut % (Auto) Lymph % (Auto) [place] % (Auto) Eos % (Auto) Baso % (Auto) Lymph # (Auto) [place] # (Auto) Eos # (Auto) Baso # (Auto) Abs Immat Gran (auto) Absolute Neuts (auto) Absolute Nucleated RBC Nucleated RBC % (auto) Smear Tech's Comments VBG pH VBG pCO2 VBG pO2 VBG HCO3 VBG O2 Saturation VBG Base Excess Sodium Potassium Chloride Carbon Dioxide Anion Gap BUN Creatinine Estim Creat Clear Calc Estimated GFR POC Glucose 218 H 303 H Random Glucose Calcium Phosphorus Magnesium Albumin Complement C3 Complement C4 Microbiology Microbiology Results: Microbiology 10/22/23 12:04 Blood - Venous Blood Culture - Final No growth after 5 days. 10/22/23 12:04 Blood - Venous Blood Culture - Final No growth after 5 days. 10/21/23 20:24 Blood - Venous Blood Culture - Final No growth after 5 days. 10/21/23 20:24 Blood - Venous Blood Culture - Final No growth after 5 days. Procedures Date of Service Date of Service: 10/31/23 Assessment & Plan Assessment and plan (1) Acute kidney injury: Status: Acute Plan JIMBO due to tubular injury and obstructive uropathy Serum creatinine was worse due to shock- improving now Significantly above dry weight; Needs diuresis C/W rest of current supportive management for now Labs AM; Shall closely follow up Progress Note: Quality Stroke Does the patient have a stroke diagnosis?: No
--- NOTE | 2023-10-31 21:05 | HO.HCP_ITS ---
Health Care Proxy Invocation Health Care Proxy Declaration: I, _Tawanda Coto , on the date cited below, have determined that, _Juvenal Luz , lacks the capacity to make or communicate, informed health care decision. This determination is made in accordance with accepted standards of medical judgment and pursuant to M.G[place] c. 201D, the [place] Health Care Proxy Law. The cause, nature, extent and probable duration of the patient's inapacity are described below: Cause: Encephalopathy (septic) Nature: Organic Extent: Severe Probable Duration of Patient's Incapacity: unknown
--- NOTE | 2023-10-31 21:06 | PM.CCN ---
Critical Care Event Note Summary Date of Service: 10/31/23 Code activated: No Narrative: Multiple discussions held with patient's HCP and son about patient's clinical status. HCP and son expressed that patient would not want to continue further care, if there was no reasonable possibility of going back to independent living. Overall patient's clinical progress and likely lack of possibility of independent living discussed and at HCP and son decided to change goals of care for palliation starting at 12 am on 11/01/2023. Code status to be updated. Critical Care Time (minutes): 0
[2023-10-31 23:03] LABS: Prot Elec - Albumin 3.7 g/dL (3.8-4.8); Prot Elec - Alpha1 0.5 g/dL (0.2-0.3); Prot Elec - Alpha2 0.6 g/dL (0.5-0.9); Prot Elec - Beta 1 0.3 g/dL (0.4-0.6); Prot Elec - Beta 2 0.5 g/dL (0.2-0.5); Prot Elec - Gamma 0.6 g/dL (0.8-1.7); Prot Elec - Total Protein 6.1 g/dL (6.1-8.1)
[2023-11-01] VITALS (14 sets, daily range): BP systolic 84–99; BP diastolic 42–48; PULSE 67–96; RESP 14–24; TEMP 36.1; O2SAT 92–96
[2023-11-01] MEDS: fentaNYL citrate/NS 1,000 MCG/100 ML PLAST..BAG 5 MCG IVCONT (00:18)
--- NOTE | 2023-11-01 00:59 | PC.NURSE ---
Pt made MARKER HAND after midnight per order and family's wishes. Vaso stopped, fentanyl infusing. Pt incontinent of large amount of urine, changed and turned. Pt is restless in the bed, sometimes moaning. He is resistive to care and swats at staffs hands. Bed alarm on. Son would only liked to be called up until 2am on 10/31 if something happens, if not he will call when he is up in the AM.
--- NOTE | 2023-11-01 03:35 | PC.NURSE ---
PATIENT IS A 78 YEAR OLD MALE TRANSFERRED FROM ICU TO [address] AT 0145 WITH A CONTENT STRATEGIST STATUS. PT IS NON VERBAL, FEW LOW MOANS WITH REPOSITIONING/TOUCH. ABLE TO MOVE ARMS, COLOR WNL, SKIN W/D, LUNG SÁNCHEZ DIM THROUGHOUT. RR RANGES FROM 16-24, WITH PERIODS OF APNEA FOR APPROX., 5 SECONDS. BRUSING TO BILAT HANDS AND ARMS, FOAM DRESSINGS AT RIGHT ELBOW, AND 2 AT LEFT ARM. BILAT LOWER LEGS WITH GAUZE DRESSING WRAPS. TRIPLE PICC LINE AT RIGHT UPPER ARM AND PT TRANSFERRED WITH A FENTANYL DRIP INFUSING PER ICU REPORT, NURSING MEATMAN AWARE AND WILL MONITOR DRIP AND WORK TO CHANGE TO DILAUDID FOR PATIENT PAIN AND COMFORT. SMALL DRESSING ALSO LEFT UPPER ARM. INCONTINENT OF URINE WITH SKIN CARE AND REPOSITIONING PROVIDED. FAMILY MADE AWARE OF UNIT TRANSFER BY ICU STAFF. WILL CONTINUE TO CLOSELY MONITOR.
--- NOTE | 2023-11-01 06:45 | PC.NURSE ---
0600- NURSING VETERINARY LABORATORY TECHNICIAN STOPPED FENTANYL DRIP THIS AM AND DILAUDID ORDERS WERE PLACED . SHE WILL WASTE AND RETURN TO ICU DEPARTMENT PER HER VERBAL INSTRUCTIONS. WILL UPDATE DAY RN.
--- NOTE | 2023-11-01 07:19 | PC.NURSE ---
Assumed care of Patient at 7:10, fentanyl drip in room not running, this RN ended drip in AUG, nursing varnish supervisor notified and will come to waste drip in ICU.
[2023-11-01] MEDS: 0.9 % Sodium Chloride Flush 3 ML SYRINGE IVFLUSH ×3 (08:19→20:28)
--- NOTE | 2023-11-01 09:17 | MHC.CLN ---
F/U PATIENT IS NOW COMFORT MEASURES ONLY. CONTINUES NPO. RD AVAILABLE NEEDED.
--- NOTE | 2023-11-01 09:24 | PM.EVENT ---
Event Note Date of Service: 11/01/23 Event Note: pt seen and examined. Transfered out of ICU overnight following prolonged ICU for septic shock, renal failure, refeeding syndrome and failure to thrive, lactic acidosis, metabolic encephalopathy. He was made comfort care. Presently unresponsive and seems comfortable. continue comfort measures with fentanyl and dilaudid. Time Spent With Patient Time: Total time managing care of this patient today _15___ minutes.
--- NOTE | 2023-11-01 09:35 | HO.WOUND ---
Wound Consult: Follow up 78yr old Male admitted to [facility] [place] [facility] on 10/22/23 - See progress notes and H&P for detailed history.? Recent transition to SHOWPLACE MANAGER - Comfort Measure Only care - orders updated to maintain comfort and dignity of patient. Sacrococcygeal and ischium Etiology: ?Unstageable Pressure Injuries - ?Present on Admission Goals of Treatment: ? Triad to sooth red irritated tissue Left Whole Foot Etiology: ??Venous wound - Lymphedema Goals of Treatment: ? Hydrofiber AG for moisture management, odor control and duration time between dressing changes. Recommendations: 1. Turn and Reposition every 2 hours and as needed for patient comfort.? Use pillows or wedges to support off loading positions. 2. Off Load all bony prominences with use of pillows and heel boots if needed.? Apply Preventative foams where needed. ? 3. Monitor for incontinence and moisture control, use barrier creams when needed for prevention and treatment. 4. Continue low air loss mattress. 5. When applicable maintain blood glucose levels per Providers order. 6. Sacrococcygeal and Left Ischium - Off Load Pressure - Cleanse with PH balance spray or wipes, pat dry. ?Apply thin layer of Triad to wound bed - only pat and dab no scrub and rub when soiling occurs. Reapply thin layer PRN after each episode of incontinence. 7. Bilateral Lower Leg - Elevate lower legs off of surface of bed with use of pillows.? Cleanse with NS, Pat dry.? Apply vaseline to both legs, apply layer of Durafiber AG to open wound beds secure with ABD pad, gauze wrap and tape.? Change 3-4 days. Re-consult wound care Nurse for wound deterioration or wound changes.
--- NOTE | 2023-11-01 10:58 | MHC.CM.PN ---
EMR REVIEWED AND PER MD ROUNDS, PT IS DETECTIVE PRIVATE EYE. CM WILL CONTINUE TO FOLLOW.
[2023-11-01] MEDS: HYDROmorphone HCl 1 MG/ML SYRINGE IVPUSH (14:10)
[2023-11-01 21:09] LABS: Anti Glomerular Basement Memb <1.0 AI; Myeloperoxidase Antibody <1.0 AI; Proteinase 3 PR3 Antibodies <1.0 AI
[2023-11-02 03:17] VITALS: RESP 14
--- NOTE | 2023-11-02 07:47 | PM.EVENT ---
Event Note Date of Service: 11/02/23 Event Note: Pt see/examined. Remains unresponsive, RR 14, no agitation and appear comfortable. Continue comfort measures only Time Spent With Patient Time: Total time managing care of this patient today ____ minutes.
[2023-11-02 08:00] VITALS: RESP 12
[2023-11-02] MEDS: 0.9 % Sodium Chloride Flush 3 ML SYRINGE IVFLUSH ×2 (09:11→17:02)
[2023-11-02 13:01] VITALS: RESP 20
[2023-11-02] MEDS: HYDROmorphone HCl 1 MG/ML SYRINGE IVPUSH ×2 (13:01→17:05)
--- NOTE | 2023-11-02 14:47 | PC.NURSE ---
Son Colby called and asked for an update, Primary RN asked to reach out to this family member.
--- NOTE | 2023-11-02 14:48 | PC.NURSE ---
Pt. BLE wounds oozing, medicated prior dressing change, incontinent care provided, and facial, mouth care provided. Pt. HCP, Miguel Ángel visited the pt. and was updated about the pt. All questions answered. HCP stated to update the son.
[2023-11-02 16:00] VITALS: RESP 12
[2023-11-02 17:05] VITALS: RESP 18
--- NOTE | 2023-11-02 17:20 | PC.NURSE ---
Son Colby called, would like a update from the RN elizabeth at 11PM if possible. States upon okay to remove Rosery however leave on the Brown scapular?signals the?[employer]?spiritual devotion to the [place] Mother. Colby updated with Fathers condition and questions answered by this service writer. Voiced concern there was no financial secretary on last shift supervisor film processing to answer the phone and get updates. This service writer apoligiezed for staffing concerns.
[2023-11-02 20:00] VITALS: BP 93/49; PULSE 85; RESP 16; TEMP 36.3; O2SAT 95
[2023-11-03 03:20] VITALS: BP 101/65; PULSE 60; RESP 16; TEMP 36.3; O2SAT 93
[2023-11-03] MEDS: HYDROmorphone HCl 1 MG/ML SYRINGE IVPUSH ×3 (04:01→18:23)
[2023-11-03] MEDS: 0.9 % Sodium Chloride Flush 3 ML SYRINGE IVFLUSH ×2 (07:05→16:05)
--- NOTE | 2023-11-03 07:31 | P.PNIM_ITS ---
Subjective Subjective Date of Service: 11/03/23 Interval History: more awake, no distress Physical Exam 2 Vital Signs: Vital Signs: Last Vital Signs Temp 97.3 F 11/03/23 03:20 Pulse 60 11/03/23 03:20 Resp 16 11/03/23 03:20 BP 101/65 11/03/23 03:20 Pulse Ox 93 11/03/23 03:20 O2 Del Method Room Air 11/03/23 03:20 O2 Flow Rate 3 10/31/23 23:00 BMI result Body Mass Index 24.0 awake, not talking Objective Data Active Medications Fentanyl (Fentanyl 50 Mcg Patch.Td72) 50 mcg TRANSDERMA Q72H [facility] Last Admin: 10/31/23 14:20 Dose: 50 mcg Documented By: ISATU Fentanyl (Fentanyl Citrate/Pf 100 Mcg/2 Ml Vial) 50 mcg IVPUSH Q2H PRN; Protocol PRN Reason: Dressing change Last Admin: 10/31/23 05:41 Dose: 50 mcg Documented By: JOCELYN Hydromorphone HCl (Hydromorphone Hcl 1 Mg/Ml Syringe) 1 mg IVPUSH Q2H PRN; Protocol PRN Reason: Pain, Severe (Pain Scale 7-10) Last Admin: 11/03/23 04:01 Dose: 1 mg Documented By: EDGARDO Pharmacy Consult (Consult Rx Parenteral Nutrition Ordering) 1 each MISCELLANE DAILY PRN PRN Reason: Consult order Sodium Chloride (0.9 % Sodium Chloride Flush 3 Ml Syringe) 3 ml IVFLUSH QSHIFT [facility] Last Admin: 11/03/23 07:05 Dose: 3 ml Documented By: AMBER Labs 10/31/23 05:09 10/31/23 05:15 Assessment and Plan (1) Failure to thrive in adult: Status: Acute (2) Acute encephalopathy: Status: Acute (3) Septic shock: Status: Acute (4) Hypotension: Status: Acute Plan Comfort measures only following prolonged ICU care for septic shock, renal failure, refeeding syndrome and failure to thrive, lactic acidosis, metabolic encephalopathy and lack of meaningful recovery. He was made comfort care by family/ proxy. Presently not in distress. continue comfort measures with fentanyl and dilaudid and adjust as needed. Quality Stroke Does the patient have a stroke diagnosis?: No VTE Prior VTE?: No VTE Risk Level:: Medical - moderate - high VTE Device Contraindication: N/A - Device Ordered VTE Drug Contraindication: N/A - Med Ordered
[2023-11-03 08:00] VITALS: RESP 12
[2023-11-03] MEDS: fentaNYL 50 MCG PATCH.TD72 TRANSDERMA (15:05)
[2023-11-03 16:00] VITALS: RESP 13
[2023-11-03 19:32] VITALS: RESP 16
[2023-11-03 19:49] VITALS: RESP 16
[2023-11-04 03:29] VITALS: RESP 14
[2023-11-04] MEDS: HYDROmorphone HCl 1 MG/ML SYRINGE IVPUSH ×5 (06:11→21:45)
[2023-11-04 06:41] VITALS: RESP 14
[2023-11-04 07:42] VITALS: RESP 14
--- NOTE | 2023-11-04 08:51 | P.PNIM_ITS ---
Subjective Subjective Date of Service: 11/04/23 Interval History: awake, alert, no distress Physical Exam 2 Vital Signs: Vital Signs: Last Vital Signs Temp 97.3 F 11/03/23 03:20 Pulse 60 11/03/23 03:20 Resp 14 11/04/23 07:42 BP 101/65 11/03/23 03:20 Pulse Ox 93 11/03/23 03:20 O2 Del Method Room Air 11/03/23 03:20 O2 Flow Rate 3 10/31/23 23:00 BMI result Body Mass Index 24.0 awake, no distress, not talking Objective Data Active Medications Fentanyl (Fentanyl 50 Mcg Patch.Td72) 50 mcg TRANSDERMA Q72H [facility] Last Admin: 11/03/23 15:05 Dose: 50 mcg Documented By: AMBER Hydromorphone HCl (Hydromorphone Hcl 1 Mg/Ml Syringe) 1 mg IVPUSH Q2H PRN; Protocol PRN Reason: Pain, Severe (Pain Scale 7-10) Last Admin: 11/04/23 06:11 Dose: 1 mg Documented By: LATOYA Pharmacy Consult (Consult Rx Parenteral Nutrition Ordering) 1 each MISCELLANE DAILY PRN PRN Reason: Consult order Sodium Chloride (0.9 % Sodium Chloride Flush 3 Ml Syringe) 3 ml IVFLUSH QSHIFT [facility] Last Admin: 11/03/23 22:37 Dose: Not Given Documented By: LATOYA Non-Admin Reason: picc line flush only Labs 10/31/23 05:09 10/31/23 05:15 Assessment and Plan (1) Failure to thrive in adult: Status: Acute (2) Acute encephalopathy: Status: Acute (3) Septic shock: Status: Acute (4) Hypotension: Status: Acute Plan Comfort measures only following prolonged ICU care for septic shock, renal failure, refeeding syndrome and failure to thrive, lactic acidosis, metabolic encephalopathy and lack of meaningful recovery. He was made comfort care by family/ proxy. Presently not in distress. continue comfort measures with fentanyl and dilaudid and adjust as needed. Quality Stroke Does the patient have a stroke diagnosis?: No VTE Prior VTE?: No VTE Risk Level:: Medical - moderate - high VTE Device Contraindication: N/A - Device Ordered VTE Drug Contraindication: N/A - Med Ordered
[2023-11-04] MEDS: 0.9 % Sodium Chloride Flush 3 ML SYRINGE IVFLUSH ×2 (10:55→14:48)
--- NOTE | 2023-11-04 14:43 | PC.NURSE ---
reiforced outer parts of the left lower leg drsgs ,consult sent to wound nurse questioning drsg orders,repositioned patient
[2023-11-04 15:33] VITALS: BP 120/56; PULSE 76; RESP 13; TEMP 36; O2SAT 95
[2023-11-04 20:00] VITALS: RESP 12
[2023-11-05] MEDS: 0.9 % Sodium Chloride Flush 3 ML SYRINGE IVFLUSH ×2 (00:15→08:54)
[2023-11-05] MEDS: HYDROmorphone HCl 1 MG/ML SYRINGE IVPUSH ×2 (03:56→09:31)
[2023-11-05 04:00] VITALS: RESP 20
--- NOTE | 2023-11-05 07:19 | HO.WOUND ---
Wound Consult: Follow up Request for orders 78yr old Male admitted to [facility] [place] on 10/22/23 - See progress notes and H&P for detailed history.? Recent transition to RN FACULTY - Comfort Measure Only care - orders updated to maintain comfort and dignity of patient. Orders were inactivated by direct care team on . Consult request received for topical orders / recommendations by direct care team - chart review completed - clear written orders in WOCN note and prior to nurse deactivation. Topical order reactivated by this keno writer. See below from last note. Sacrococcygeal and ischium Etiology: ?Unstageable Pressure Injuries - ?Present on Admission Goals of Treatment: ? Triad to sooth red irritated tissue Left Whole Foot Etiology: ??Venous wound - Lymphedema Goals of Treatment: ? Hydrofiber AG for moisture management, odor control and duration time between dressing changes. Recommendations: 1. Turn and Reposition every 2 hours and as needed for patient comfort.? Use pillows or wedges to support off loading positions. 2. Off Load all bony prominences with use of pillows and heel boots if needed.? Apply Preventative foams where needed. ? 3. Monitor for incontinence and moisture control, use barrier creams when needed for prevention and treatment. 4. Continue low air loss mattress. 5. When applicable maintain blood glucose levels per Providers order. 6. Sacrococcygeal and Left Ischium - Off Load Pressure - Cleanse with PH balance spray or wipes, pat dry. ?Apply thin layer of Triad to wound bed - only pat and dab no scrub and rub when soiling occurs. Reapply thin layer PRN after each episode of incontinence. 7. Bilateral Lower Leg - Elevate lower legs off of surface of bed with use of pillows.? Cleanse with NS, Pat dry.? Apply vaseline to both legs, apply layer of Durafiber AG to open wound beds secure with ABD pad, gauze wrap and tape.? Change 3-4 days. Re-consult wound care Nurse for wound deterioration or wound changes.
[2023-11-05 07:36] VITALS: RESP 18
--- NOTE | 2023-11-05 08:40 | P.PNIM_ITS ---
Subjective Subjective Date of Service: 11/05/23 Interval History: awake, alert, no distress, not communicating Physical Exam 2 Vital Signs: Vital Signs: Last Vital Signs Temp 96.8 F 11/04/23 15:33 Pulse 76 11/04/23 15:33 Resp 18 11/05/23 07:36 BP 120/56 L 11/04/23 15:33 Pulse Ox 95 11/04/23 15:33 O2 Del Method Room Air 11/04/23 15:33 O2 Flow Rate 3 10/31/23 23:00 BMI result Body Mass Index 24.0 awake, no distress, not talking Objective Data Active Medications Fentanyl (Fentanyl 50 Mcg Patch.Td72) 50 mcg TRANSDERMA Q72H [facility] Last Admin: 11/03/23 15:05 Dose: 50 mcg Documented By: AMBER Hydromorphone HCl (Hydromorphone Hcl 1 Mg/Ml Syringe) 1 mg IVPUSH Q2H PRN; Protocol PRN Reason: Pain, Severe (Pain Scale 7-10) Last Admin: 11/05/23 03:56 Dose: 1 mg Documented By: SONG Pharmacy Consult (Consult Rx Parenteral Nutrition Ordering) 1 each MISCELLANE DAILY PRN PRN Reason: Consult order Sodium Chloride (0.9 % Sodium Chloride Flush 3 Ml Syringe) 3 ml IVFLUSH QSHIFT [facility] Last Admin: 11/05/23 00:15 Dose: 3 ml Documented By: SONG Labs 10/31/23 05:09 10/31/23 05:15 Labs: Laboratory Results - last 24 hr 10/30/23 07:49 Abnorm Protein Band 2 TNP Abnorm Protein Band 3 TNP Assessment and Plan (1) Failure to thrive in adult: Status: Acute (2) Acute encephalopathy: Status: Acute (3) Septic shock: Status: Acute (4) Hypotension: Status: Acute Plan Comfort measures only following prolonged ICU care for septic shock, renal failure, refeeding syndrome and failure to thrive, lactic acidosis, metabolic encephalopathy and lack of meaningful recovery. He was made comfort care by family/ proxy. Presently not in distress. continue comfort measures with fentanyl, dilaudid, Ativan and adjust as needed. Discuss with CM about possible dc to SNF Quality Stroke Does the patient have a stroke diagnosis?: No VTE Prior VTE?: No VTE Risk Level:: Medical - moderate - high VTE Device Contraindication: N/A - Device Ordered VTE Drug Contraindication: N/A - Med Ordered
--- NOTE | 2023-11-05 12:00 | MHC.CM.PN ---
PT TO BE DDCD TODAY AT 330 TO [facility]
--- NOTE | 2023-11-05 12:09 | PM.DS ---
DS: Providers Provider Date of Service: 11/05/23 Date of admission: 10/22/23 01:59 Primary care physician: Billy Longoria MD Consults: 10/22/23 04:56 Consult to Wound Care Routine Reason for consultation: Left foot wound 10/22/23 08:20 Consult to Nephrology Routine Consulting Provider: [facility] Reason for consultation: isreal,hyponatremia Has provider been notified: No 10/22/23 08:23 Consult to Infectious Diseases Routine Consulting Provider: [facility] Reason for consultation: leg cellulitis 10/22/23 11:06 Consult to Critical Care Stat Consulting Provider: Dillon Jerez Reason for consultation: Sepsis / hypotension 10/22/23 14:17 Consult to General Surgery Routine Consulting Provider: [facility] Reason for consultation: cellulitis of left leg Has provider been notified: No 11/04/23 14:31 Consult to Wound Care Routine Reason for consultation: lower leg ulcerations need drsg orders DS: Diagnosis Discharge Diagnosis (1) Failure to thrive in adult: Status: Acute (2) Acute encephalopathy: Status: Acute (3) Septic shock: Status: Acute (4) Hypotension: Status: Acute DS: Summary Hospital Course Hospital Course: admission hpi Chief Complaint: Left leg pain Most of the HPI was provided by patient's son over the phone. Juvenal Luz is a 78 years old man with past medical history significant for type 2 diabetes mellitus was brought to the emergency department via EMS after his son contacted police for a wellness check as he noted that his speech was different. Son also mentioned that he tried to text his that the previous day but he was not answering back. Son said that his that is not taking care of himself properly, is not eating and is usually in a lot of pain to his left leg. In addition, son expressed that he is that we will need to be placed in a nursing facility at he is unable to leave by himself. On evaluation, the patient was mildly lethargic but capable of answering simple questions. He was able to tell me that he has not been vomiting or having diarrhea. He also denied use of diuretics and mentioned that he recently took a course of Augmentin for leg infection. He also told me that the only 3 medications/supplements that he takes daily is metformin, gabapentin and vitamin B12. Denies use of NSAIDs. He did not report alcohol abuse, tobacco smoking or illicit drug use. In the ED, he was found to have stable vital signs. Blood work showed leukocytosis of 21.5. Hemoglobin and platelets are normal. Corrected sodium is 135. Potassium was initially 6.1 but decreased to 5.2. CO2 increased from 16 to 19. Creatinine is 3.79 (3.84z). There is worsening lactic acidosis (3.4 --> 3.8). Total CK is normal. BNP slightly elevated at 147. Viral testing is negative for influenza, RSV and COVID-19. CXR is negative. Left foot x-ray showed no evidence of osteomyelitis, it did show sclerotic changes with some unchanged ill-defined lytic areas in the posterior calcaneus and dorsal soft tissue swelling. ED tx: Zosyn 3.375 g IV, insulin R 5 units IV, Lokelma 10 g IV PO, NS 2 L bolus. Hospital course: A 78-year-old gentleman with underlying conditions including COPD, diabetes mellitus, and coronary artery disease (CAD), as well as pulmonary hypertension, was admitted on October 22, 2023, following a wellness check prompted by his son's call to the police. Upon assessment, he was found to be lethargic and unkempt. In the emergency department, the patient was diagnosed with acute renal failure, lactic acidosis, hyperkalemia, encephalopathy, and sepsis, presumed to be from a skin source. He received intravenous antibiotics and fluids and was admitted to the medical telemetry unit. Shortly after admission, he deteriorated into septic shock, necessitating transfer to the ICU and requiring vasopressors. During his hospitalization, he experienced complications including refeeding syndrome, failure to thrive, and persistent encephalopathy. Following discussions about goals of care with his proxy led by the professional architect, a decision was made to transition to comfort measures only. The patient is receiving Dilaudid as needed, along with Ativan and Fentanyl for comfort. Plans are underway to transition him to a correction facility (SNF) for ongoing care under a comfort care plan. Final diagnoses: Septic shock metabolic encephalopathy Acute kidney inury due to ATN refeeding syndrome adult failure to thrive diabetes copd pulmonary HTN, Time Attestation Discharge Coordination Time (in mins): 40 Quality: Safe Use of Opioids Does Pt have an Active Cancer Diagnosis on the Problem List?: No Quality: Stroke Does the patient have a stroke diagnosis?: No Physical Exam Vital Signs: Vital Signs: Last Vital Signs Temp 96.8 F 11/04/23 15:33 Pulse 76 11/04/23 15:33 Resp 18 11/05/23 07:36 BP 120/56 L 11/04/23 15:33 Pulse Ox 95 11/04/23 15:33 O2 Del Method Room Air 11/04/23 15:33 O2 Flow Rate 3 10/31/23 23:00 BMI result Body Mass Index 24.0 Discharge Plan Discharge Anticipated Discharge Date/Time: 11/05/23 11:51 Patient Disposition: Xfer SNF Discharge Diagnosis: Septic shock, Referrals: [facility] [Other] - 1 Week Billy Longoria MD [Primary Care Provider] - 1 Week Discharge Medications: New fentanyl 50 mcg/hr Patch 72 Hour 50 mcg transdermal Q72H Qty: 4 0RF Rx Instructions: Partial Fill upon patient request. morphine concentrate 100 mg/5 mL (20 mg/mL) solution 5 mg PO Q3H PRN (Reason: pain/comfort) 15 Days Qty: 30 0RF Rx Instructions: Partial Fill upon patient request. lorazepam [Lorazepam Intensol] 2 mg/mL concentrate 0.5 mg PO Q4H PRN (Reason: anxiety/restlessness) Qty: 30 0RF scopolamine base 1 mg over 3 days patch 3 day 1 patch transdermal Q72H 12 Days Qty: 4 0RF Rx Instructions: 1 patch behind ear Q72H for secretions Continued (DME) HEEL LOOPS -- E0951 See Rx Instructions .Route .MEDSUPPLY Qty: 2 0RF Rx Instructions: As directed Discontinued (DME) CUSHION SKIN PROTECTION LESS THAN 22 -- E2503 See Rx Instructions .Route .MEDSUPPLY Qty: 1 0RF Rx Instructions: As directed (DME) ELECTRIC WHEELCHAIR See Rx Instructions .Route .MEDSUPPLY Qty: 1 0RF Rx Instructions: for lifetime use (DME) ADJUSTABLE HEIGHT ARM ASSEMBLY -- E0973 See Rx Instructions .Route .MEDSUPPLY Qty: 2 0RF Rx Instructions: As directed (DME) BATTERY -- E2365 See Rx Instructions .Route .MEDSUPPLY Qty: 1 0RF Rx Instructions: As directed cholecalciferol (vitamin D3) 50 mcg (2,000 unit) capsule 50 mcg PO DAILY 90 Days Qty: 90 3RF (DME) nebulizers [MC 300 Nebulizer-Unvrsl Tubing] Misc See Rx Instructions .Route Qty: 1 0RF Rx Instructions: As directed (DME) nebulizers Misc See Rx Instructions .Route Qty: 1 0RF Rx Instructions: As directed (DME) blood-glucose meter [FreeStyle Lite Meter] Kit See Rx Instructions .Route Qty: 1 0RF Rx Instructions: As directed use to sheck Blood sugar 2 times per day ipratropium-albuterol 0.5 mg-3 mg(2.5 mg base)/3 mL solution for nebulization 3 ml inhalation Q6H PRN (Reason: wheezing) 30 Days Qty: 360 3RF metformin 500 mg tablet 500 mg PO BID Qty: 180 1RF (DME) FreeStyle Lite Strips Strip See Rx Instructions .Route Qty: 100 0RF Rx Instructions: As directed two times per day gabapentin 300 mg capsule 300 mg PO TID PRN (Reason: NEUROPATHIC Pain) glipizide 10 mg tablet 10 mg PO BID aspirin 81 mg tablet,delayed release (DR/EC) 81 mg PO DAILY Qty: 30 0RF Discharge Orders: Discharge Order (Routine); Ordered 11/05/23 Ordered By: Axel Valdes Diet: NPO Activity on Discharge: bed rest Stand Alone Forms: Patient Portal Discharge page Print Language: Micronesian Care Plan Goals: comfort measures only Health Concerns: comfort measures only Plan of Treatment: fentanyl, morphine and ativan for comfort Assessment: see above
--- NOTE | 2023-11-05 12:36 | MHC.CM.PN ---
HCP LEATHA ALONSO NOTIFIED OF DC [phone]..PT TO BE DCD TODAY TO [facility] BY BLS
[2023-11-05] MEDS: LORazepam 2 MG/ML VIAL 1 MG IVPUSH (13:19)
[2023-11-05 15:22] VITALS: RESP 16
--- NOTE | 2023-11-05 16:12 | HO.REMOVAL ---
Removal of PICC/Midline Removal of PICC/Midline: Removal of PICC/Midline: 1. Date: 11/05/23 2. Reason removed: no longer needed 3. Inserted length: 41cm 4. Removed length: 41cm 5. A dressing was placed over the site upon removal. No edema or bleeding at the site.
[2023-11-05] MEDS: Morphine Sulfate 4 MG/ML CARTRIDGE IM (16:44)
== END 2023-11-05 16:47 | disposition skilled nursing facility (03) | DRG 871 ==
LOC: HO.ED 10-22 02:02 → HO.EDOVER 10-22 02:15 → HO.IMC 10-22 07:27 → HO.EDOVER 10-22 08:18 → HO.ICU 10-22 12:35 → HO.S3 11-01 01:31
PROVIDERS: Internal Medicine; Internal Medicine Critical Care Medicine; Internal Medicine Hypertension Specialist; Internal Medicine Pulmonary Disease; Nurse Practitioner Family; Physician Assistant Medical; Admitting Provider Internal Medicine; Emergency Provider Student in an Organized Health Care Education/Training Program; PCP Internal Medicine; Visit Provider Internal Medicine
DX: A41.9 Sepsis, unspecified organism (principal); G92.8 Other toxic encephalopathy; N17.0 Acute kidney failure with tubular necrosis; R65.21 Severe sepsis with septic shock; J18.9 Pneumonia, unspecified organism; L03.116 Cellulitis of left lower limb; E87.21 Acute metabolic acidosis; J44.0 Chronic obstructive pulmonary disease with (acute) lower respiratory infection; L97.829 Non-pressure chronic ulcer of other part of left lower leg with unspecified severity; E87.3 Alkalosis; N13.9 Obstructive and reflux uropathy, unspecified; I27.20 Pulmonary hypertension, unspecified; I87.2 Venous insufficiency (chronic) (peripheral); E11.65 Type 2 diabetes mellitus with hyperglycemia; E11.42 Type 2 diabetes mellitus with diabetic polyneuropathy; R62.7 Adult failure to thrive; Z68.24 Body mass index [BMI] 24.0-24.9, adult; I25.10 Atherosclerotic heart disease of native coronary artery without angina pectoris; Z66 Do not resuscitate; E87.5 Hyperkalemia; Z20.822 Contact with and (suspected) exposure to COVID-19; Z99.3 Dependence on wheelchair; Z79.899 Other long term (current) drug therapy
CPT/HCPCS: 0241U; 36415; 36573; 71045; 71250; 73620; 76705; 76775; 80048; 80053; 80202; 81001; 82010; 82040; 82043; 82272; 82550; 82570; 82803; 82947; 83036; 83520; 83605; 83735; 83880; 84100; 84156; 84165; 84478; 84484; 85025; 85027; 86021; 86160; 87040; 87640; 87641; 93005; 99285; C1751; C1758; J0131; J0613; J1170; J1205; J1630; J1644; J1940; J2060; J2270; J2371; J2543; J2598; J3010; J3370; J3475; J3480; P9047

== ENCOUNTER → 2023-10-21 21:27 | Outpatient (BNV) | payer MEDICARE, BC, SELFPAY | PROVIDERS: Admitting Provider Internal Medicine; Emergency Provider Student in an Organized Health Care Education/Training Program; PCP Internal Medicine; Visit Provider Internal Medicine Cardiovascular Disease | DX: R94.31 Abnormal electrocardiogram [ECG] [EKG] (principal) | CPT/HCPCS: 93010 ==

== ENCOUNTER 2023-10-22 01:59 | Outpatient (BNV) | payer MEDICARE, BC, SELFPAY | END 2023-10-28 21:23 | PROVIDERS: Admitting Provider Internal Medicine; Emergency Provider Student in an Organized Health Care Education/Training Program; PCP Internal Medicine; Visit Provider Internal Medicine Cardiovascular Disease | DX: R94.31 Abnormal electrocardiogram [ECG] [EKG] (principal) | CPT/HCPCS: 93010 ==

== ENCOUNTER → 2023-10-22 01:59 | Outpatient (BNV) | payer MEDICARE, BC, SELFPAY | PROVIDERS: Admitting Provider Internal Medicine; Emergency Provider Student in an Organized Health Care Education/Training Program; PCP Internal Medicine; Visit Provider Internal Medicine Critical Care Medicine | DX: R74.01 Elevation of levels of liver transaminase levels (principal); G93.40 Encephalopathy, unspecified; A41.9 Sepsis, unspecified organism; R65.21 Severe sepsis with septic shock; E87.20 Acidosis, unspecified; E87.5 Hyperkalemia; N17.9 Acute kidney failure, unspecified; J18.9 Pneumonia, unspecified organism | CPT/HCPCS: 99291 ==

== ENCOUNTER → 2023-10-22 01:59 | Outpatient (BNV) | payer MEDICARE, BC, SELFPAY | PROVIDERS: Admitting Provider Internal Medicine; Emergency Provider Student in an Organized Health Care Education/Training Program; PCP Internal Medicine; Visit Provider Surgery | DX: L03.116 Cellulitis of left lower limb (principal); R23.4 Changes in skin texture | CPT/HCPCS: 97597; 99222 ==

== ENCOUNTER → 2023-10-22 01:59 | Outpatient (BNV) | payer MEDICARE, BC, SELFPAY | PROVIDERS: Admitting Provider Internal Medicine; Emergency Provider Student in an Organized Health Care Education/Training Program; PCP Internal Medicine; Visit Provider Internal Medicine Pulmonary Disease | DX: G93.40 Encephalopathy, unspecified (principal); I95.9 Hypotension, unspecified; I87.312 Chronic venous hypertension (idiopathic) with ulcer of left lower extremity; L97.929 Non-pressure chronic ulcer of unspecified part of left lower leg with unspecified severity; J44.9 Chronic obstructive pulmonary disease, unspecified; N17.9 Acute kidney failure, unspecified; R62.7 Adult failure to thrive; E11.40 Type 2 diabetes mellitus with diabetic neuropathy, unspecified | CPT/HCPCS: 99291; 99499 ==

== ENCOUNTER → 2023-10-22 01:59 | Outpatient (BNV) | payer MEDICARE, BC, SELFPAY | PROVIDERS: Admitting Provider Internal Medicine; Emergency Provider Student in an Organized Health Care Education/Training Program; PCP Internal Medicine; Visit Provider Internal Medicine | DX: R23.4 Changes in skin texture (principal); G93.40 Encephalopathy, unspecified; A41.9 Sepsis, unspecified organism; R65.21 Severe sepsis with septic shock | CPT/HCPCS: 99222 ==

== ENCOUNTER → 2023-10-22 01:59 | Outpatient (BNV) | payer MEDICARE, BC, SELFPAY | PROVIDERS: Admitting Provider Internal Medicine; Emergency Provider Student in an Organized Health Care Education/Training Program; PCP Internal Medicine; Visit Provider Internal Medicine Hypertension Specialist | DX: N17.0 Acute kidney failure with tubular necrosis (principal) | CPT/HCPCS: 99223; 99232 ==

== ENCOUNTER → 2023-10-22 01:59 | Outpatient (BNV) | payer MEDICARE, BC, SELFPAY | PROVIDERS: Admitting Provider Internal Medicine; Emergency Provider Student in an Organized Health Care Education/Training Program; PCP Internal Medicine; Visit Provider Internal Medicine | DX: A41.9 Sepsis, unspecified organism (principal); R65.21 Severe sepsis with septic shock; R62.7 Adult failure to thrive; G93.41 Metabolic encephalopathy; I95.9 Hypotension, unspecified | CPT/HCPCS: 99223; 99232; 99239; 99429; 99499 ==